=== PATIENT | male | born 1995 | race Caucasian/White ===

== ENCOUNTER 2020-07-13 08:49 | Inpatient (IN) | payer OTHER, SELFPAY ==
[2020-07-13] VITALS (99 sets, daily range): BP systolic 129–155; BP diastolic 75–106; PULSE 68–132; RESP 0–23; TEMP 36.5–37.7; O2SAT 93–100; BMI 22.1
[2020-07-13] MEDS: sodium chloride 0.9% 1,000 ML 999 ML IV (09:00)
--- NOTE | 2020-07-13 09:05 | W.ED.GENADLT ---
Documented by User: GALEN Medel 07/13/20 10:27 HPI - General Adult General: Chief complaint: Nausea/Vomiting/Diarrhea Stated complaint: TYPE 1 DIABETIC-SD POSS DKA Time Seen by Provider: 07/13/20 08:50 Source: patient Mode of arrival: ambulatory Limitations: no limitations History of Present Illness: HPI narrative: Patient is a 25-year-old male who presents to ED today with a main complaint of feeling like crap . Patient overall is fairly non-cooperative with further history. He does not seem willing to elaborate on how he feels ill. When asked specifically he tells me he has had some lower back pain over the past 2 to 3 days. No injury or trauma. Denies urinary symptoms. Denies previous back pains. He reports 2 episodes of nonbloody vomit yesterday. He is a type I diabetic. He tells me yesterday he forgot to take his 24-hour insulin . Patient cannot tell me the name of his insulin but states he gets it over the counter. He also is apparently supposed to be taking a sliding scale insulin but admittedly has not been doing this. Reports he does check his glucose at home and reports it normally runs in the 200s. He is not having any abdominal pain. No diarrhea. No fevers. No URI like symptoms. No sick contacts. Associated symptoms: Reports nausea and vomiting; Deny chest pain, confusion, dyspnea, headache(s), malaise, rash, palpitations or syncope Review of Systems Const: Denies: fever(s), chills, body aches, fatigue or malaise Eyes: Denies: change in vision or blurry vision ENMT: Denies: odynophagia Card: Denies: chest pain, palpitations, irregular heart rhythm, lightheadedness, syncope or dyspnea on exertion Resp: Denies: dyspnea, productive cough or pain on inspiration GI: Reports: nausea and vomiting; Denies: abdominal pain, heartburn, diarrhea, change in bowel habits, change in stool character, hematochezia, melena or white/light colored stool : Denies: difficulty urinating, dysuria, urinary frequency, urinary urgency or urinary hesitancy Musc: Reports: back pain; Denies: neck pain, extremity pain, extremity swelling, joint pain, joint swelling, joint redness, joint stiffness, limited range of motion or muscle weakness Skin/Breast: Denies: rash Neuro: Denies: headache(s), numbness in extremities, weakness in extremities, sensory changes, lack of coordination, difficulty walking, dizziness, confusion or Slurred speech present [facility] ED PFSH: Medical History Diabetes mellitus DKA, type 1 Social History Smoking and tobacco status: current every day smoker cigarettes Packs smoked per day: 1 Number of cigarettes per day: >20 Alcohol intake: never Substance/Drug Use: never Current occupational status: employed Physical Exam Const: COMMON NORMALS: average body habitus, patient oriented x3, healthy appearing, alert and well nourished ORIENTATION/CONSCIOUSNESS: Yes awake, Yes oriented to person, Yes oriented to place and Yes oriented to time OTHER: awake and alert although he is lying on bed with eyes closed and does not open them during my examination HENMT: COMMON NORMALS: normocephalic and atraumatic HEAD & SCALP: normocephalic and atraumatic Resp: COMMON NORMALS: normal respiratory effort and clear to auscultation bilaterally AUSCULTATION: clear to auscultation bilaterally Cardio: COMMON NORMALS: regular rhythm RATE: tachycardic RHYTHM: regular rhythm GI: COMMON NORMALS: Normal to inspection, nondistended, normoactive bowel sounds present, Soft to palpation, non-tender, No hepatosplenomegaly present and no masses PALPATION: Yes Soft to palpation and Yes No hepatosplenomegaly present Extremity: COMMON NORMALS: normal to inspection Neuro: JOSE MANUEL COMA SCALE: document [facility] findings Jose Manuel coma scale eye opening: Spontaneous Jose Manuel coma scale verbal response: Orientated Jose Manuel coma scale motor response: Obey commands Jose Manuel coma scale total score: 15 COMMON NORMALS: patient oriented x3 SENSORIUM/ORIENTATION: Yes alert, Yes oriented to person, Yes oriented to place and Yes oriented to time Skin: COMMON NORMALS: no rashes or lesions noted GENERAL SKIN EXAM: no rashes or lesions noted Course ED course: energy and conservation technician has spoken to patient and he apparently takes Novolin N 35 units daily and then takes Novolin R as his sliding scale insulin Vital Signs: Vital signs: Vital Signs Temperature 98.1 F 07/14/20 08:00 Pulse Rate 96 07/14/20 09:00 Respiratory Rate 14 07/14/20 09:00 Blood Pressure 134/87 07/14/20 09:00 Pulse Oximetry 97 07/14/20 09:00 MDM - General Adult MDM Narrative: Medical decision making narrative: Patient is acidotic with a pH of 7.31. He has a gap of 32. Glucose over 400. Positive serum ketones. Patient would benefit from coming into the hospital for further treatment of his DKA. He so far has had a liter of fluids. He will be given an insulin bolus and placed on an insulin drip. He has a normal potassium at 5.0. He does not require bicarb at this time. I have spoken to Dr. Ca who will see/evaluate patient and speak to the hospitalist for admission. Lab Data: Labs: Lab Results 07/13/20 07/13/20 07/13/20 Range/Units 09:06 09:07 09:07 WBC 15.6 H (4.0-10.0) 10^3/ uL RBC 6.35 H (4.1-5.3) 10^6/u L Hgb 18.8 H (11.7-16.6) g/dL Hct 57.7 H (42.0-52.0) % MCV 90.9 (80-94) fL MCH 29.6 (28.0-34.0) pg MCHC 32.6 (30.0-36.0) g/dL RDW 12.8 (12.1-15.1) % Plt Count 294 (130-400) 10^3/c mm MPV 12.0 H (7.4-10.4) fL Neut % (Auto) 73.4 % Lymph % (Auto) 19.3 % Hinds % (Auto) 6.4 % Eos % (Auto) 0.1 % Baso % (Auto) 0.5 % Neut # (Auto) 11.49 H (1.8-7.7) 10^3/u L Lymph # (Auto) 3.0 (0.8-4.8) 10^3/u L Hinds # (Auto) 1.0 H (0.2-0.9) 10^3/u L Eos # (Auto) 0.0 (0.0-0.8) 10^3/u L Baso # (Auto) 0.1 (0.0-0.1) 10^3/u L Nucleated RBC % (a uto) 0 % Nucleated RBCs # 0.0 /100WBC Specimen Type Sample Site ABG pH (7.35-7.45) ABG pCO2 (35-45) mmHg ABG pO2 (80.0-100.0) mmH g ABG HCO3 (22-26) mmol/L ABG O2 Saturation ABG Base Excess (-2.0-2.0) mmol/ L Bereket Test A-a O2 Gradient (5-10) mmHg Hematocrit (42-52) % Hgb O2 Saturation (95-100) % Carboxyhemoglobin (0.4-20.1) %THgb Methemoglobin (0.4-1.5) % Total Hemoglobin (14-18) g/dL Ionized Calcium (1.1-1.4) mmol/L O2 Delivery Device FiO2 % Vegetable Harvest Machine Operator ID Sodium 132 L (136-145) mmol/L Potassium 5.0 (3.5-5.1) mmol/L Chloride 88 L (98-107) mmol/L Carbon Dioxide 17 L (22-29) mmol/L Anion Gap 32.0 H (5-19) BUN 36 H (6-20) mg/dL Creatinine 1.5 H (0.7-1.2) mg/dL GFR Calculation 58.0 L (90-130) mL/min Glucose 423 H (65-115) mg/dL POC Glucose 391 (70-110) mg/dL Estimat Average Gl ucose Hemoglobin A1c (4.0-6.0) % Calculated Osmolal ity 300 H (285-295) mOsm/k g Calcium 9.8 (8.5-10.5) mg/dL Total Bilirubin 0.6 (0.15-1.2) mg/dL AST 10 (0-40) U/L ALT 19 (0-41) U/L Alkaline Phosphata se 108 (40-130) IU/L Total Protein 7.4 (6.6-8.7) g/dL Albumin 4.9 (3.5-5.2) g/dL Globulin 2.5 (1.3-4.6) g/dL Urine Color (Yellow) Urine Appearance (CLEAR) Urine pH (5-7) Ur Specific Gravit y (1.005-1.030) Urine Protein (Negative) Urine Glucose (UA) (Normal) Urine Ketones (Negative) Urine Blood (Negative) Urine Nitrate (Negative) Urine Bilirubin (Negative) Urine Urobilinogen (Negative) mg/dL Ur Leukocyte Angela ase (Negative) Urine Opiates Scre en (Negative) ng/mL Ur Barbiturates Sc reen (Negative) ng/mL Ur Phencyclidine S crn (Negative) ng/mL Ur Amphetamines Sc reen (Negative) ng/mL U Benzodiazepines Scrn (Negative) ng/mL Urine Cocaine Scre en (Negative) ng/mL U Marijuana (THC) Screen (Negative) ng/mL Serum Ketones Positive H (Negative) SARS-CoV-2 Ag (Rap id) (Negative) 07/13/20 07/13/20 07/13/20 Range/Units 09:07 09:10 09:23 WBC (4.0-10.0) 10^3/ uL RBC (4.1-5.3) 10^6/u L Hgb (11.7-16.6) g/dL Hct (42.0-52.0) % MCV (80-94) fL MCH (28.0-34.0) pg MCHC (30.0-36.0) g/dL RDW (12.1-15.1) % Plt Count (130-400) 10^3/c mm MPV (7.4-10.4) fL Neut % (Auto) % Lymph % (Auto) % Hinds % (Auto) % Eos % (Auto) % Baso % (Auto) % Neut # (Auto) (1.8-7.7) 10^3/u L Lymph # (Auto) (0.8-4.8) 10^3/u L Hinds # (Auto) (0.2-0.9) 10^3/u L Eos # (Auto) (0.0-0.8) 10^3/u L Baso # (Auto) (0.0-0.1) 10^3/u L Nucleated RBC % (a uto) % Nucleated RBCs # /100WBC Specimen Type Arterial Sample Site Brachial, left ABG pH 7.31 L (7.35-7.45) ABG pCO2 27.3 L (35-45) mmHg ABG pO2 102.0 H (80.0-100.0) mmH g ABG HCO3 13.8 L (22-26) mmol/L ABG O2 Saturation 98.8 ABG Base Excess -10.4 L (-2.0-2.0) mmol/ L Bereket Test Pos A-a O2 Gradient 1.5 L (5-10) mmHg Hematocrit 55.4 H (42-52) % Hgb O2 Saturation 96.5 (95-100) % Carboxyhemoglobin 1.7 (0.4-20.1) %THgb Methemoglobin 0.7 (0.4-1.5) % Total Hemoglobin 18.1 H (14-18) g/dL Ionized Calcium 1.2 (1.1-1.4) mmol/L O2 Delivery Device Room air FiO2 21.0 % Vegetable Harvest Machine Operator ID Cak Sodium 131.0 (136-145) mmol/L Potassium 4.4 (3.5-5.1) mmol/L Chloride (98-107) mmol/L Carbon Dioxide (22-29) mmol/L Anion Gap (5-19) BUN (6-20) mg/dL Creatinine (0.7-1.2) mg/dL GFR Calculation (90-130) mL/min Glucose 407.0 H (65-115) mg/dL POC Glucose (70-110) mg/dL Estimat Average Gl ucose 275 Hemoglobin A1c 11.2 H (4.0-6.0) % Calculated Osmolal ity (285-295) mOsm/k g Calcium (8.5-10.5) mg/dL Total Bilirubin (0.15-1.2) mg/dL AST (0-40) U/L ALT (0-41) U/L Alkaline Phosphata se (40-130) IU/L Total Protein (6.6-8.7) g/dL Albumin (3.5-5.2) g/dL Globulin (1.3-4.6) g/dL Urine Color Yellow (Yellow) Urine Appearance Clear (CLEAR) Urine pH 5 (5-7) Ur Specific Gravit y 1.020 (1.005-1.030) Urine Protein Neg (Negative) Urine Glucose (UA) 4+ H (Normal) Urine Ketones 3+ H (Negative) Urine Blood Neg (Negative) Urine Nitrate Negative (Negative) Urine Bilirubin Neg (Negative) Urine Urobilinogen Neg (Negative) mg/dL Ur Leukocyte Angela ase Negative (Negative) Urine Opiates Scre en (Negative) ng/mL Ur Barbiturates Sc reen (Negative) ng/mL Ur Phencyclidine S crn (Negative) ng/mL Ur Amphetamines Sc reen (Negative) ng/mL U Benzodiazepines Scrn (Negative) ng/mL Urine Cocaine Scre en (Negative) ng/mL U Marijuana (THC) Screen (Negative) ng/mL Serum Ketones (Negative) SARS-CoV-2 Ag (Rap id) (Negative) 07/13/20 07/13/20 Range/Units 09:23 09:37 WBC (4.0-10.0) 10^3/ uL RBC (4.1-5.3) 10^6/u L Hgb (11.7-16.6) g/dL Hct (42.0-52.0) % MCV (80-94) fL MCH (28.0-34.0) pg MCHC (30.0-36.0) g/dL RDW (12.1-15.1) % Plt Count (130-400) 10^3/c mm MPV (7.4-10.4) fL Neut % (Auto) % Lymph % (Auto) % Hinds % (Auto) % Eos % (Auto) % Baso % (Auto) % Neut # (Auto) (1.8-7.7) 10^3/u L Lymph # (Auto) (0.8-4.8) 10^3/u L Hinds # (Auto) (0.2-0.9) 10^3/u L Eos # (Auto) (0.0-0.8) 10^3/u L Baso # (Auto) (0.0-0.1) 10^3/u L Nucleated RBC % (a uto) % Nucleated RBCs # /100WBC Specimen Type Sample Site ABG pH (7.35-7.45) ABG pCO2 (35-45) mmHg ABG pO2 (80.0-100.0) mmH g ABG HCO3 (22-26) mmol/L ABG O2 Saturation ABG Base Excess (-2.0-2.0) mmol/ L Bereket Test A-a O2 Gradient (5-10) mmHg Hematocrit (42-52) % Hgb O2 Saturation (95-100) % Carboxyhemoglobin (0.4-20.1) %THgb Methemoglobin (0.4-1.5) % Total Hemoglobin (14-18) g/dL Ionized Calcium (1.1-1.4) mmol/L O2 Delivery Device FiO2 % Vegetable Harvest Machine Operator ID Sodium (136-145) mmol/L Potassium (3.5-5.1) mmol/L Chloride (98-107) mmol/L Carbon Dioxide (22-29) mmol/L Anion Gap (5-19) BUN (6-20) mg/dL Creatinine (0.7-1.2) mg/dL GFR Calculation (90-130) mL/min Glucose (65-115) mg/dL POC Glucose (70-110) mg/dL Estimat Average Gl ucose Hemoglobin A1c (4.0-6.0) % Calculated Osmolal ity (285-295) mOsm/k g Calcium (8.5-10.5) mg/dL Total Bilirubin (0.15-1.2) mg/dL AST (0-40) U/L ALT (0-41) U/L Alkaline Phosphata se (40-130) IU/L Total Protein (6.6-8.7) g/dL Albumin (3.5-5.2) g/dL Globulin (1.3-4.6) g/dL Urine Color (Yellow) Urine Appearance (CLEAR) Urine pH (5-7) Ur Specific Gravit y (1.005-1.030) Urine Protein (Negative) Urine Glucose (UA) (Normal) Urine Ketones (Negative) Urine Blood (Negative) Urine Nitrate (Negative) Urine Bilirubin (Negative) Urine Urobilinogen (Negative) mg/dL Ur Leukocyte Angela ase (Negative) Urine Opiates Scre en Negative (Negative) ng/mL Ur Barbiturates Sc reen Negative (Negative) ng/mL Ur Phencyclidine S crn Negative (Negative) ng/mL Ur Amphetamines Sc reen Negative (Negative) ng/mL U Benzodiazepines Scrn Negative (Negative) ng/mL Urine Cocaine Scre en Negative (Negative) ng/mL U Marijuana (THC) Screen Negative (Negative) ng/mL Serum Ketones (Negative) SARS-CoV-2 Ag (Rap id) Negative (Negative) Imaging Data^: CXR: Radiologist's impression: [address] [address] XRay Report Signed Patient: Jean Miller Unit #: [id number] : 1995 Age/Sex: 25 / M ADM Date: 07/13/20 Loc: ER Room/Bed: Attending Dr: Ordering Provider/Ordering MD: Daisy Cruz Date of Service: 07/13/20 Procedure(s): XR chest 1V portable [id number] Accession Number(s): [id number] Report Number: [id number] PROCEDURE INFORMATION: Exam: XR Chest, 1 View Exam date and time: 07/13/2020 9:25 AM Age: 25 years old Clinical indication: Other: Not feeling well TECHNIQUE: Imaging protocol: XR of the chest Views: 1 view. COMPARISON: CR Chest 1 [place] [id number] 08/31/2018 8:09 AM FINDINGS: Lungs: Hyperinflation, without acute airspace disease. Pleural space: No pleural effusion. Heart/Mediastinum: Normal configuration of the heart. Bones/joints: Unremarkable. XR/XR chest 1V portable [id number] IMPRESSION: Hyperinflation, without acute airspace or pleural disease. Dictated By: Yaw Brewer MD Signed By: Yaw Brewer MD Signed Date/Time: 07/13/20 1021 DD/ 1019 Discharge Plan Discharge Admit Provider: Cyn Garza Clinical Impression: DKA, type 1 Condition: Fair Discharge Date/Time: 07/13/20 16:20 Coding Level of Care Code ED Detacker for Chg Fwd Exam Comprehensive Documented by User: Quincy Ca DO 07/19/20 07:09 HPI - General Adult General: Chief complaint: Nausea/Vomiting/Diarrhea Stated complaint: TYPE 1 DIABETIC-SD POSS DKA Time Seen by Provider: 07/13/20 08:50 History of Present Illness: HPI narrative: 25-year-old male admit admitted to the ER with DKA. He is lethargic but awake and responsive. He will discuss his history with me and reviewed Daisy Cruz's history there is no change in my findings. He does state he feels a little bit better after getting some fluids. PFSH ED PFSH: Medical History Diabetes mellitus DKA, type 1 Social History Smoking and tobacco status: current every day smoker cigarettes Packs smoked per day: 1 Number of cigarettes per day: >20 Alcohol intake: never Substance/Drug Use: never Current occupational status: employed Physical Exam Const: GENERAL APPEARANCE: cooperative ORIENTATION/CONSCIOUSNESS: Yes awake, Yes oriented to person, Yes oriented to place and Yes oriented to time HENMT: COMMON NORMALS: normocephalic, atraumatic and hearing grossly normal bilaterally HEAD & SCALP: normocephalic and atraumatic Eye: COMMON NORMALS: Equal, round and reactive pupils present, EOMs intact bilaterally, conjunctivae normal and no scleral icterus CONJUNCTIVA: Yes conjunctivae normal PUPIL: Yes Equal, round and reactive pupils present Neck/C-Spine: COMMON NORMALS: no JVD Resp: COMMON NORMALS: normal respiratory effort, No retractions, No use of accessory muscles and clear to auscultation bilaterally AUSCULTATION: clear to auscultation bilaterally Cardio: COMMON NORMALS: no JVD, regular rate, regular rhythm and No murmurs present (Cardio) RATE: regular rate RHYTHM: regular rhythm GI: COMMON NORMALS: Soft to palpation and No hepatosplenomegaly present AUSCULTATION: Yes normoactive bowel sounds PALPATION: Yes Soft to palpation, No Tenderness to palpation present (GI), No Guarding due to palpation present (GI) and Yes No hepatosplenomegaly present Extremity: COMMON NORMALS: normal to inspection, capillary refill normal, no clubbing, cyanosis or edema, no calf tenderness and no pedal edema Neuro: SENSORIUM/ORIENTATION: Yes oriented to person, Yes oriented to place and Yes oriented to time Skin: COMMON NORMALS: no rashes or lesions noted GENERAL SKIN EXAM: no rashes or lesions noted Course Vital Signs: Vital signs: Vital Signs Temperature 98.1 F 07/14/20 08:00 Pulse Rate 96 07/14/20 09:00 Respiratory Rate 14 07/14/20 09:00 Blood Pressure 134/87 07/14/20 09:00 Pulse Oximetry 97 07/14/20 09:00 MDM - General Adult MDM Narrative: Medical decision making narrative: Reviewed chart with Daisy Cruz. Of also reviewed the patient and exam agree with her exam. Discussed with Dr. Garza will admit for DKA. Lab Data: Labs: Lab Results 07/13/20 07/13/20 07/13/20 Range/Units 09:06 09:07 09:07 WBC 15.6 H (4.0-10.0) 10^3/ uL RBC 6.35 H (4.1-5.3) 10^6/u L Hgb 18.8 H (11.7-16.6) g/dL Hct 57.7 H (42.0-52.0) % MCV 90.9 (80-94) fL MCH 29.6 (28.0-34.0) pg MCHC 32.6 (30.0-36.0) g/dL RDW 12.8 (12.1-15.1) % Plt Count 294 (130-400) 10^3/c mm MPV 12.0 H (7.4-10.4) fL Neut % (Auto) 73.4 % Lymph % (Auto) 19.3 % Hinds % (Auto) 6.4 % Eos % (Auto) 0.1 % Baso % (Auto) 0.5 % Neut # (Auto) 11.49 H (1.8-7.7) 10^3/u L Lymph # (Auto) 3.0 (0.8-4.8) 10^3/u L Hinds # (Auto) 1.0 H (0.2-0.9) 10^3/u L Eos # (Auto) 0.0 (0.0-0.8) 10^3/u L Baso # (Auto) 0.1 (0.0-0.1) 10^3/u L Nucleated RBC % (a uto) 0 % Nucleated RBCs # 0.0 /100WBC Specimen Type Sample Site ABG pH (7.35-7.45) ABG pCO2 (35-45) mmHg ABG pO2 (80.0-100.0) mmH g ABG HCO3 (22-26) mmol/L ABG O2 Saturation ABG Base Excess (-2.0-2.0) mmol/ L Bereket Test A-a O2 Gradient (5-10) mmHg Hematocrit (42-52) % Hgb O2 Saturation (95-100) % Carboxyhemoglobin (0.4-20.1) %THgb Methemoglobin (0.4-1.5) % Total Hemoglobin (14-18) g/dL Ionized Calcium (1.1-1.4) mmol/L O2 Delivery Device FiO2 % Vegetable Harvest Machine Operator ID Sodium 132 L (136-145) mmol/L Potassium 5.0 (3.5-5.1) mmol/L Chloride 88 L (98-107) mmol/L Carbon Dioxide 17 L (22-29) mmol/L Anion Gap 32.0 H (5-19) BUN 36 H (6-20) mg/dL Creatinine 1.5 H (0.7-1.2) mg/dL GFR Calculation 58.0 L (90-130) mL/min Glucose 423 H (65-115) mg/dL POC Glucose 391 (70-110) mg/dL Estimat Average Gl ucose Hemoglobin A1c (4.0-6.0) % Calculated Osmolal ity 300 H (285-295) mOsm/k g Calcium 9.8 (8.5-10.5) mg/dL Total Bilirubin 0.6 (0.15-1.2) mg/dL AST 10 (0-40) U/L ALT 19 (0-41) U/L Alkaline Phosphata se 108 (40-130) IU/L Total Protein 7.4 (6.6-8.7) g/dL Albumin 4.9 (3.5-5.2) g/dL Globulin 2.5 (1.3-4.6) g/dL Urine Color (Yellow) Urine Appearance (CLEAR) Urine pH (5-7) Ur Specific Gravit y (1.005-1.030) Urine Protein (Negative) Urine Glucose (UA) (Normal) Urine Ketones (Negative) Urine Blood (Negative) Urine Nitrate (Negative) Urine Bilirubin (Negative) Urine Urobilinogen (Negative) mg/dL Ur Leukocyte Angela ase (Negative) Urine Opiates Scre en (Negative) ng/mL Ur Barbiturates Sc reen (Negative) ng/mL Ur Phencyclidine S crn (Negative) ng/mL Ur Amphetamines Sc reen (Negative) ng/mL U Benzodiazepines Scrn (Negative) ng/mL Urine Cocaine Scre en (Negative) ng/mL U Marijuana (THC) Screen (Negative) ng/mL Serum Ketones Positive H (Negative) SARS-CoV-2 Ag (Rap id) (Negative) 07/13/20 07/13/20 07/13/20 Range/Units 09:07 09:10 09:23 WBC (4.0-10.0) 10^3/ uL RBC (4.1-5.3) 10^6/u L Hgb (11.7-16.6) g/dL Hct (42.0-52.0) % MCV (80-94) fL MCH (28.0-34.0) pg MCHC (30.0-36.0) g/dL RDW (12.1-15.1) % Plt Count (130-400) 10^3/c mm MPV (7.4-10.4) fL Neut % (Auto) % Lymph % (Auto) % Hinds % (Auto) % Eos % (Auto) % Baso % (Auto) % Neut # (Auto) (1.8-7.7) 10^3/u L Lymph # (Auto) (0.8-4.8) 10^3/u L Hinds # (Auto) (0.2-0.9) 10^3/u L Eos # (Auto) (0.0-0.8) 10^3/u L Baso # (Auto) (0.0-0.1) 10^3/u L Nucleated RBC % (a uto) % Nucleated RBCs # /100WBC Specimen Type Arterial Sample Site Brachial, left ABG pH 7.31 L (7.35-7.45) ABG pCO2 27.3 L (35-45) mmHg ABG pO2 102.0 H (80.0-100.0) mmH g ABG HCO3 13.8 L (22-26) mmol/L ABG O2 Saturation 98.8 ABG Base Excess -10.4 L (-2.0-2.0) mmol/ L Bereket Test Pos A-a O2 Gradient 1.5 L (5-10) mmHg Hematocrit 55.4 H (42-52) % Hgb O2 Saturation 96.5 (95-100) % Carboxyhemoglobin 1.7 (0.4-20.1) %THgb Methemoglobin 0.7 (0.4-1.5) % Total Hemoglobin 18.1 H (14-18) g/dL Ionized Calcium 1.2 (1.1-1.4) mmol/L O2 Delivery Device Room air FiO2 21.0 % Vegetable Harvest Machine Operator ID Cak Sodium 131.0 (136-145) mmol/L Potassium 4.4 (3.5-5.1) mmol/L Chloride (98-107) mmol/L Carbon Dioxide (22-29) mmol/L Anion Gap (5-19) BUN (6-20) mg/dL Creatinine (0.7-1.2) mg/dL GFR Calculation (90-130) mL/min Glucose 407.0 H (65-115) mg/dL POC Glucose (70-110) mg/dL Estimat Average Gl ucose 275 Hemoglobin A1c 11.2 H (4.0-6.0) % Calculated Osmolal ity (285-295) mOsm/k g Calcium (8.5-10.5) mg/dL Total Bilirubin (0.15-1.2) mg/dL AST (0-40) U/L ALT (0-41) U/L Alkaline Phosphata se (40-130) IU/L Total Protein (6.6-8.7) g/dL Albumin (3.5-5.2) g/dL Globulin (1.3-4.6) g/dL Urine Color Yellow (Yellow) Urine Appearance Clear (CLEAR) Urine pH 5 (5-7) Ur Specific Gravit y 1.020 (1.005-1.030) Urine Protein Neg (Negative) Urine Glucose (UA) 4+ H (Normal) Urine Ketones 3+ H (Negative) Urine Blood Neg (Negative) Urine Nitrate Negative (Negative) Urine Bilirubin Neg (Negative) Urine Urobilinogen Neg (Negative) mg/dL Ur Leukocyte Angela ase Negative (Negative) Urine Opiates Scre en (Negative) ng/mL Ur Barbiturates Sc reen (Negative) ng/mL Ur Phencyclidine S crn (Negative) ng/mL Ur Amphetamines Sc reen (Negative) ng/mL U Benzodiazepines Scrn (Negative) ng/mL Urine Cocaine Scre en (Negative) ng/mL U Marijuana (THC) Screen (Negative) ng/mL Serum Ketones (Negative) SARS-CoV-2 Ag (Rap id) (Negative) 07/13/20 07/13/20 Range/Units 09:23 09:37 WBC (4.0-10.0) 10^3/ uL RBC (4.1-5.3) 10^6/u L Hgb (11.7-16.6) g/dL Hct (42.0-52.0) % MCV (80-94) fL MCH (28.0-34.0) pg MCHC (30.0-36.0) g/dL RDW (12.1-15.1) % Plt Count (130-400) 10^3/c mm MPV (7.4-10.4) fL Neut % (Auto) % Lymph % (Auto) % Hinds % (Auto) % Eos % (Auto) % Baso % (Auto) % Neut # (Auto) (1.8-7.7) 10^3/u L Lymph # (Auto) (0.8-4.8) 10^3/u L Hinds # (Auto) (0.2-0.9) 10^3/u L Eos # (Auto) (0.0-0.8) 10^3/u L Baso # (Auto) (0.0-0.1) 10^3/u L Nucleated RBC % (a uto) % Nucleated RBCs # /100WBC Specimen Type Sample Site ABG pH (7.35-7.45) ABG pCO2 (35-45) mmHg ABG pO2 (80.0-100.0) mmH g ABG HCO3 (22-26) mmol/L ABG O2 Saturation ABG Base Excess (-2.0-2.0) mmol/ L Bereket Test A-a O2 Gradient (5-10) mmHg Hematocrit (42-52) % Hgb O2 Saturation (95-100) % Carboxyhemoglobin (0.4-20.1) %THgb Methemoglobin (0.4-1.5) % Total Hemoglobin (14-18) g/dL Ionized Calcium (1.1-1.4) mmol/L O2 Delivery Device FiO2 % [employer] ID Sodium (136-145) mmol/L Potassium (3.5-5.1) mmol/L Chloride (98-107) mmol/L Carbon Dioxide (22-29) mmol/L Anion Gap (5-19) BUN (6-20) mg/dL Creatinine (0.7-1.2) mg/dL GFR Calculation (90-130) mL/min Glucose (65-115) mg/dL POC Glucose (70-110) mg/dL Estimat Average Gl ucose Hemoglobin A1c (4.0-6.0) % Calculated Osmolal ity (285-295) mOsm/k g Calcium (8.5-10.5) mg/dL Total Bilirubin (0.15-1.2) mg/dL AST (0-40) U/L ALT (0-41) U/L Alkaline Phosphata se (40-130) IU/L Total Protein (6.6-8.7) g/dL Albumin (3.5-5.2) g/dL Globulin (1.3-4.6) g/dL Urine Color (Yellow) Urine Appearance (CLEAR) Urine pH (5-7) Ur Specific Gravit y (1.005-1.030) Urine Protein (Negative) Urine Glucose (UA) (Normal) Urine Ketones (Negative) Urine Blood (Negative) Urine Nitrate (Negative) Urine Bilirubin (Negative) Urine Urobilinogen (Negative) mg/dL Ur Leukocyte Angela ase (Negative) Urine Opiates Scre en Negative (Negative) ng/mL Ur Barbiturates Sc reen Negative (Negative) ng/mL Ur Phencyclidine S crn Negative (Negative) ng/mL Ur Amphetamines Sc reen Negative (Negative) ng/mL U Benzodiazepines Scrn Negative (Negative) ng/mL Urine Cocaine Scre en Negative (Negative) ng/mL U Marijuana (THC) Screen Negative (Negative) ng/mL Serum Ketones (Negative) SARS-CoV-2 Ag (Rap id) Negative (Negative) Discharge Plan Discharge Admit Provider: Cyn Garza Clinical Impression: DKA, type 1 Condition: Fair Discharge Date/Time: 07/13/20 16:20 Coding Level of Care Code ED Detacker for Chg Fwd Exam Comprehensive
[2020-07-13 09:12] LABS: Glucose Point of Care 391 mg/dL (70-110)
--- NOTE | 2020-07-13 09:13 | XRR_ITS ---
PROCEDURE INFORMATION: Exam: XR Chest, 1 View Exam date and time: 07/13/2020 9:25 AM Age: 25 years old Clinical indication: Other: Not feeling well TECHNIQUE: Imaging protocol: XR of the chest Views: 1 view. COMPARISON: CR Chest 1 [place] [id number] 08/31/2018 8:09 AM FINDINGS: Lungs: Hyperinflation, without acute airspace disease. Pleural space: No pleural effusion. Heart/Mediastinum: Normal configuration of the heart. Bones/joints: Unremarkable. XR/XR chest 1V portable [id number] IMPRESSION: Hyperinflation, without acute airspace or pleural disease.
[2020-07-13 09:21] LABS: ABG PCO2 27.3 mmHg (35-45); ABG PH Result 7.31 (7.35-7.45); Alveolar-Arterial Oxygen Gradi 1.5 mmHg (5-10); Arterial Blood Gas Hematocrit 55.4 % (42-52); Base Excess ABG -10.4 mmol/L (-2.0-2.0); Blood Gas Allen Test Pos; Blood Gas Operator Identificat CAK; Blood Gas Sample Site Brachial, left; Blood Gas Sample Type Arterial; Carboxyhemoglobin 1.7 %THgb (0.4-20.1); HCO3 ABG 13.8 mmol/L (22-26); HGB O2 Sat 96.5 % (95-100); Ionized Calcium Level - ABG 1.2 mmol/L (1.1-1.4); Methemoglobin 0.7 % (0.4-1.5); Oxygen Device ROOM AIR; Oxygen Saturation ABG 98.8; Potassium Level - ABG 4.4 mmol/L (3.5-5.0); Total Hemoglobin 18.1 g/dL (14-18)
[2020-07-13 09:24] LABS: Basophils # 0.1 10^3/uL (0.0-0.1); Basophils % 0.5 %; Eosinophils % 0.1 %; Hematocrit 57.7 % (42.0-52.0); Hemoglobin 18.8 g/dL (11.7-16.6); Lymphocytes % 19.3 %; Mean Corpuscular HGB Conc 32.6 g/dL (30.0-36.0); Mean Corpuscular Hemoglobin 29.6 pg (28.0-34.0); Mean Corpuscular Volume 90.9 fL (80-94); Monocytes % 6.4 %; Neutrophils # 11.49 10^3/uL (1.8-7.7); Neutrophils % 73.4 %; Nucleated Red Blood Cells % 0 %; Platelet Count 294 10^3/cmm (130-400); Red Blood Count 6.35 10^6/uL (4.1-5.3); Red Cell Distribution Width 12.8 % (12.1-15.1); White Blood Count 15.6 10^3/uL (4.0-10.0)
[2020-07-13 09:35] LABS: Ketone (Acetest) Serum Positive (Negative)
[2020-07-13 09:39] LABS: Alanine Aminotransferase 19 U/L (0-41); Albumin Level 4.9 g/dL (3.5-5.2); Alkaline Phosphatase 108 IU/L (40-130); Aspartate Amino Transferase 10 U/L (0-40); Blood Urea Nitrogen 36 mg/dL (6-20); Calcium 9.8 mg/dL (8.5-10.5); Carbon Dioxide 17 mmol/L (22-29); Chloride 88 mmol/L (98-107); Globulin 2.5 g/dL (1.3-4.6); Glucose 423 mg/dL (65-115); Osmolality Calculated 300 mOsm/kg (285-295); Sodium 132 mmol/L (136-145); Total Bilirubin 0.6 mg/dL (0.15-1.2); Total Protein 7.4 g/dL (6.6-8.7)
[2020-07-13 09:44] LABS: Creatinine Clr Calc Pharmacy 75.4386
[2020-07-13 09:47] LABS: Add Urine Microscopic? NO
[2020-07-13 09:54] LABS: Glucose Urine UA 4+ (Normal); Protein Urine Neg (Negative); Urine Appearance Clear (CLEAR); Urine Color Yellow (Yellow); pH Urine 5 (5-7)
[2020-07-13 09:55] LABS: Bilirubin Urine Neg (Negative); Blood Urine Neg (Negative); Ketones Urine 3+ (Negative); Leukocyte Esterase Urine Negative (Negative); Nitrate Urine Negative (Negative); Urobilinogen Urine Neg (Negative)
[2020-07-13] MEDS: insulin regular-human 250 UNIT in sodium chloride 0.9% 250 ML 6.1 UNIT IV (09:56)
[2020-07-13 10:00] LABS: SARS Covid-2 Antigen Negative (Negative)
[2020-07-13] MEDS: insulin regular-human 100 units/1 mL 6 UNIT IVP (10:04)
[2020-07-13 10:31] LABS: Amphetamines Screen Urine Negative (Negative); Barbiturates Screen Urine Negative (Negative); Benzodiazepines Screen Urine Negative (Negative); Cocaine Screen Urine Negative (Negative); Opiate Screen Urine Negative (Negative); PCP Screen Urine Negative (Negative); THC Screen Urine Negative (Negative)
--- NOTE | 2020-07-13 11:30 | P.HP_ITS ---
Providers/Chief Complaint Admitting Physician: Cyn Garza DO Primary Care Provider: Peace Brothers MD Chief Complaint: TYPE 1 DIABETIC-SD POSS DKA History of Present Illness Jean Miller is a 25 year old male with a past medical history of type 1 diabetes mellitus that presented to the hospital for not feeling well. Patient would not provide any elaborated HPI, therefore difficult to obtain what his contributing factors were that brought him to the emergency department. He states that he is been having some nausea vomiting abdominal discomfort. Reports that he did not take his insulin, long-acting, yesterday. Patient reports that he does not have a primary care provider and has not been seen by a physician in some time. Denies any recent fevers or chills, no known exposure to anyone under investigation are positive for COVID-19. Review of Systems Const: Denies: fever(s) or chills Eyes: Denies: change in vision ENMT: Denies: nasal congestion Card: Denies: chest pain, palpitations or edema Resp: Denies: dyspnea, productive cough or hemoptysis GI: Reports: abdominal pain, nausea and vomiting; Denies: diarrhea, constipation, hematochezia or melena : Denies: dysuria or hematuria Musc: Denies: extremity pain or muscle cramps Skin/Breast: Denies: rash or new lesions Neuro: Denies: headache(s) or dizziness Psych: Denies: anxiety or depression Endo: Reports: polyuria; Denies: hot flashes Basim/Lymph: Denies: easy bruising or easy bleeding Medications/Allergies Home Medications Medication Instructions Recorded Confirmed Last Taken Type insulin NPH isoph U-100 human 35 unit SUBCUT DAILY 07/13/20 07/13/20 Unknown History [Novolin N Flexpen] insulin regular human [Novolin R See Rx Instructions .ROUTE .COMPLEX 07/13/20 07/13/20 Unknown History Flexpen] Allergies Allergy/AdvReac Type Severity Reaction Status Date / Time No Known Allergies Allergy Unverified 07/13/20 09:29 PFSH Acute PFSH: Medical History Diabetes mellitus Social History (Updated 07/13/20 @ 11:32 by Cyn Garza DO) Smoking and tobacco status: current every day smoker cigarettes Packs smoked pe r day: 1 Alcohol intake: never Substance/Drug Use: never Supplemental PFSH Information: Patient denies any family history of medical problems Reports prior throat surgery but unable to elaborate 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 Vitals/I&O/Wt Last Vital Signs Temp 97.7 F 07/13/20 09:04 Pulse 102 H 07/13/20 09:42 Resp 18 07/13/20 09:42 BP 148/106 07/13/20 09:42 Pulse Ox 99 07/13/20 09:42 Weight last 48 hrs Weight 68.039 kg Physical Exam Const: COMMON NORMALS: patient oriented x3 and alert GENERAL APPEARANCE: cooperative ORIENTATION/CONSCIOUSNESS: Yes awake, Yes oriented to person, Yes oriented to place and Yes oriented to time HENMT: COMMON NORMALS: normocephalic and atraumatic HEAD & SCALP: normocephalic and atraumatic Eye: COMMON NORMALS: Equal, round and reactive pupils present PUPIL: Yes Equal, round and reactive pupils present Neck/C-Spine: COMMON NORMALS: supple GENERAL: Yes normal visual inspection Resp: COMMON NORMALS: normal respiratory effort and clear to auscultation bilaterally EFFORT & INSPECTION: Yes able to speak in complete sentences AUSCULTATION: clear to auscultation bilaterally, no rhonchi and no wheezes Cardio: COMMON NORMALS: regular rhythm and No murmurs present (Cardio) RATE: tachycardic RHYTHM: regular rhythm GI: COMMON NORMALS: Soft to palpation INSPECTION: No abdominal distension AUSCULTATION: Yes normoactive bowel sounds PALPATION: Yes Soft to palpation Extremity: COMMON NORMALS: no clubbing, cyanosis or edema and no calf tenderness Neuro: COMMON NORMALS: patient oriented x3, CN's II-XII intact bilaterally, moves all extremities and no focal motor deficits SENSORIUM/ORIENTATION: Yes alert, Yes oriented to person, Yes oriented to place and Yes oriented to time SPEECH: speech normal Psych: COMMON NORMALS: mental status grossly normal OTHER: flat, minimally conversant Skin: COMMON NORMALS: no rashes or lesions noted GENERAL SKIN EXAM: no rashes or lesions noted Data : 07/13/20 09:07 07/13/20 09:07 A&P Assessment and plan (1) DKA, type 1: Admit to ICU Continue insulin drip Continue on normal saline with 20 mEq of potassium then transition to D5 half- normal saline with 20 mEq of potassium when blood glucose is less than 250 mg/dL Transition to subcutaneous insulin when anion gap closes and when clinically appropriate No calorie clear liquid diet at this time Patient reports noncompliance with home insulin, does not have a primary care provider. Recommend close outpatient follow-up and endocrinology referral. 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
[2020-07-13 11:40] LABS: Glucose Point of Care 271 mg/dL (70-110)
[2020-07-13 12:23] LABS: Glucose Point of Care 211 mg/dL (70-110)
[2020-07-13] MEDS: D5-NS 0.45% + KCL 20 mEq 20 MEQ/1,000 ML BAG 150 MEQ IV ×2 (13:13→17:04)
[2020-07-13 15:20] LABS: Glucose Point of Care 370 mg/dL (70-110)
[2020-07-13 16:09] LABS: Glucose Point of Care 329 mg/dL (70-110)
[2020-07-13 16:33] LABS: Glucose Point of Care 309 mg/dL (70-110)
[2020-07-13] MEDS: sodium chlor 0.9% + KCl 20 mEq 20 MEQ/1,000 ML BAG 150 MEQ IV (17:11)
[2020-07-13] MEDS: D5-NS 0.45% + KCL 20 mEq 20 MEQ/1,000 ML BAG 75 MEQ IV (17:59)
[2020-07-13 18:41] LABS: Anion Gap 12.2 (5-19); Blood Urea Nitrogen 27 mg/dL (6-20); Calcium 8.8 mg/dL (8.5-10.5); Carbon Dioxide 24 mmol/L (22-29); Chloride 102 mmol/L (98-107); Glomerular Filtration Rate 92.6 mL/min (90-130); Glucose 289 mg/dL (65-115); Osmolality Calculated 294 mOsm/kg (285-295); Potassium 4.2 mmol/L (3.5-5.1); Sodium 134 mmol/L (136-145)
[2020-07-13 19:04] LABS: Glucose Point of Care 210 mg/dL (70-110)
[2020-07-13 21:06] LABS: Anion Gap 12.8 (5-19); Blood Urea Nitrogen 26 mg/dL (6-20); Calcium 8.8 mg/dL (8.5-10.5); Carbon Dioxide 25 mmol/L (22-29); Chloride 106 mmol/L (98-107); Glomerular Filtration Rate 104.6 mL/min (90-130); Glucose 118 mg/dL (65-115); Osmolality Calculated 296 mOsm/kg (285-295); Potassium 3.8 mmol/L (3.5-5.1); Sodium 140 mmol/L (136-145)
[2020-07-13 22:06] LABS: Glucose Point of Care 103 mg/dL (70-110)
[2020-07-13 22:06] LABS: Glucose Point of Care 158 mg/dL (70-110)
[2020-07-13 22:06] LABS: Glucose Point of Care 137 mg/dL (70-110)
--- NOTE | 2020-07-13 22:08 | PC.NURSE ---
Verbal Orders for Insulin Drip to be discontinued with new orders for diet change from Clear liquid to Consistent Carb-received from MD Tamra. Pt Insulin Flowsheet updated and placed inside of chart. Pt given PO fluids and crackers per MD recommendations. Pt resting comfortably with no needs verbalized.
[2020-07-13 22:40] LABS: Estmated Average Glucose 275; Hemoglobin A1C 11.2 % (4.0-6.0)
[2020-07-14] VITALS (100 sets, daily range): BP systolic 120–153; BP diastolic 60–96; PULSE 68–118; RESP 3–20; TEMP 36.7–37.2; O2SAT 93–100
[2020-07-14 01:36] LABS: Anion Gap 11.9 (5-19); Blood Urea Nitrogen 23 mg/dL (6-20); Calcium 8.5 mg/dL (8.5-10.5); Carbon Dioxide 24 mmol/L (22-29); Chloride 101 mmol/L (98-107); Glucose 246 mg/dL (65-115); Osmolality Calculated 288 mOsm/kg (285-295); Potassium 3.9 mmol/L (3.5-5.1); Sodium 133 mmol/L (136-145)
[2020-07-14 03:07] LABS: Glucose Point of Care 392 mg/dL (70-110)
[2020-07-14] MEDS: insulin glargine 100 units/1 mL 5 UNIT SUBCUT (03:37)
--- NOTE | 2020-07-14 03:42 | PC.NURSE ---
Spot check BG level 392. MD Tamra. notified and verbal order for 10 units Novolog SubQ Once NOW, and 5 units Lantus SubQ Once NOW to be given. Pt continues to consume cardiac diet without complaint of N/V. Pt stated that his home medications consist of Novolog N 35 units/day, and Novolog R based on BG levels. No other major medical history when asked. And verbalized no other major health history.
--- NOTE | 2020-07-14 06:40 | PC.NURSE ---
Shift Summary: Around 2129 v/o to turn off Insulin Drip, and upgrade PO diet given by MD Tamra. Pt started with clear liquids and tolerated well, then moved to Consistent Carb Diet and has had no incidence of N/V. Spot check done after PO meal given. Pt BG was 392. notified and v/o for Lantus and Novolog SubQ. Pt slept comfortably, and had no reported pain through shift. Pt requesting to go home this AM stating he feels better . D5NS running at 75mL/hr. 1000 u/o.
[2020-07-14 07:30] LABS: Glucose Point of Care 294 mg/dL (70-110)
--- NOTE | 2020-07-14 09:35 | PC.NURSE ---
Pt request to leave against medical advice. Pt had voiced want to leave since earlier this shift. This nurse called doctor at 0715 to notify. This nurse requested pt wait to see doctor on morning rounds, pt declined. Attempted to voalte physician prior to pt leaving wtihout response. Pt taking off equipment, stating Give me my paperwork, I'm getting the hell out of here. Proper paper work filled out by pt and nurse, placed in chart. Educated pt on risks r/t leaving against medical advice. Advised pt to follow up with PCP.
--- NOTE | 2020-07-14 11:16 | PC.SOCIAL ---
Patient left AMA. This nurse called him to inquire if he is willing to have an appt scheduled to establish primary care. Patient was agreeable prefers not to see another provider than one he had seen previously. [facility] was called however he missed a new patient appt in 2017 and one in 2018 so they are not willing to schedule him. This nurse called [facility] and was told he could be scheduled with Dr Cano. Patient originally indicates he prefers morning appts however one was scheduled for 07/18/2020Saturday at 9am. When this nurse called patient back was told he will be out of town for work next week. This nurse educated patient that a 2pm appt was available tomorrow as well. 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 Notified Dr Garza as well since she requested an appointment be set up during Heart to Heart Rounds.
--- NOTE | 2020-07-14 11:30 | PM.DCS ---
Discharge Providers Date of Admission: 07/13/20 11:29 Date of Discharge: July 14, 2020 Attending Provider at Admission: Cyn Garza DO Attending Provider at Discharge: Cyn Garza DO Primary Care Provider: Peace Brothers MD Diagnoses at Discharge Discharge Diagnosis (1) DKA, type 1: Status: Acute Qualifiers: Diabetes mellitus complication detail: without coma Qualified Code(s): E10.10 - Type 1 diabetes mellitus with ketoacidosis without coma Reason for Visit Reason for Visit: TYPE 1 DIABETIC-SD POSS DKA Hospital Course Hospital Course: Patient was seen and evaluated in the emergency department noted to be in DKA. He was started on insulin drip and admitted to the ICU. He was given aggressive IV fluids had serial labs performed and when anion gap closed and appropriate he was transitioned to subcutaneous insulin. Before physician was able to round on patient on he demanded to leave AGAINST MEDICAL ADVICE began pulling at all of his lines and left the facility AGAINST MEDICAL ADVICE. Unable to see and evaluate patient before he left the hospital. Nursing reported that they disclosed to him the risk of leaving AGAINST MEDICAL ADVICE. Physical Exam Narrative: EXAM NARRATIVE: Unable to perform physical exam date of discharge due to patient leaving AGAINST MEDICAL ADVICE Discharge Data Data Completed and Pending: Completed Studies During Hospitalization Category Date Time Status XR chest 1V rick ble [id number] Urgent Exams 07/13/20 09:13 Completed Labs from last 24 hours 07/14/20 07/14/20 07/14/20 07:26 03:03 00:35 Sodium 133 L Potassium 3.9 Chloride 101 Carbon Dioxide 24 Anion Gap 11.9 BUN 23 H Creatinine 1.1 GFR Calculation 83.0 L Glucose 246 H POC Glucose 294 392 Estimat Average Gl ucose Hemoglobin A1c Calculated Osmolal ity 288 Calcium 8.5 07/13/20 07/13/20 07/13/20 21:37 20:38 20:28 Sodium 140 Potassium 3.8 Chloride 106 Carbon Dioxide 25 Anion Gap 12.8 BUN 26 H Creatinine 0.9 GFR Calculation 104.6 Glucose 118 H POC Glucose 103 158 Estimat Average Gl ucose Hemoglobin A1c Calculated Osmolal ity 296 H Calcium 8.8 07/13/20 07/13/20 07/13/20 19:34 18:35 17:35 Sodium 134 L Potassium 4.2 Chloride 102 Carbon Dioxide 24 Anion Gap 12.2 BUN 27 H Creatinine 1.0 GFR Calculation 92.6 Glucose 289 H POC Glucose 137 210 Estimat Average Gl ucose Hemoglobin A1c Calculated Osmolal ity 294 Calcium 8.8 07/13/20 07/13/20 07/13/20 16:28 16:05 15:14 Sodium Potassium Chloride Carbon Dioxide Anion Gap BUN Creatinine GFR Calculation Glucose POC Glucose 309 329 370 Estimat Average Gl ucose Hemoglobin A1c Calculated Osmolal ity Calcium 07/13/20 07/13/20 07/13/20 12:20 11:37 09:07 Sodium Potassium Chloride Carbon Dioxide Anion Gap BUN Creatinine GFR Calculation Glucose POC Glucose 211 271 Estimat Average Gl ucose 275 Hemoglobin A1c 11.2 H Calculated Osmolal ity Calcium Vitals: Last Vital Signs Temp 98.1 F 07/14/20 08:00 Pulse 96 07/14/20 09:00 Resp 14 07/14/20 09:00 BP 134/87 07/14/20 09:00 Pulse Ox 97 07/14/20 09:00 Discharge Plan Discharge Patient Disposition: Left Against Medical Advice Condition: Fair Prescriptions: No Action Novolin R Flexpen 100 unit/mL (3 mL) Insulin Pen See Rx Instructions .ROUTE .COMPLEX RF: 0 Novolin N Flexpen 100 unit/mL (3 mL) Insulin Pen 35 unit SUBCUT DAILY RF: 0 Referrals: Peace Brothers MD [Primary Care Provider] - Activity Restrictions/Additional Instructions: No specific discharge instructions were provided to patient as he did not want to stay in the hospital any longer despite counseling and left AGAINST MEDICAL ADVICE. 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
--- NOTE | 2020-07-15 08:13 | PC.RESP ---
SMOKING CESSATION INFORMATION SENT TO PATIENT.
[2020-07-15 11:15] LABS: Glucose Point of Care 206 mg/dL (70-110)
[2020-07-16 19:50] LABS: Glucose Point of Care 318 mg/dL (70-110)
[2020-07-16 19:50] LABS: Glucose Point of Care 221 mg/dL (70-110)
== END 2020-07-14 09:20 | disposition left against medical advice (07) | DRG 638 ==
LOC: ER 09:45 → ICU 14:56
PROVIDERS: Admitting Provider Family Medicine; Emergency Provider Physician Assistant; Family Provider Family Medicine; PCP Family Medicine; Visit Provider Family Medicine
DX: E10.10 Type 1 diabetes mellitus with ketoacidosis without coma (principal); N17.9 Acute kidney failure, unspecified; F17.210 Nicotine dependence, cigarettes, uncomplicated; E86.0 Dehydration; T38.3X6A Underdosing of insulin and oral hypoglycemic [antidiabetic] drugs, initial encounter; Z91.128 Patient's intentional underdosing of medication regimen for other reason; Z53.29 Procedure and treatment not carried out because of patient's decision for other reasons
CPT/HCPCS: 12345; 36415; 36416; 36600; 71045; 80048; 80051; 80053; 80306; 81003; 82009; 82810; 82962; 83036; 83986; 85025; 87426; 96372; 96375; 99283; J1815 ×2; J7030; J7050

== ENCOUNTER → 2020-07-15 14:37 | Outpatient (BNVA) | payer OTHER, SELFPAY | PROVIDERS: Family Provider Family Medicine; PCP Family Medicine; Visit Provider Family Medicine Adult Medicine | DX: E10.10 Type 1 diabetes mellitus with ketoacidosis without coma (principal) | CPT/HCPCS: 36416; 82962 ==

== ENCOUNTER 2020-09-04 00:23 | Emergency (ER) | payer OTHER, SELFPAY ==
[2020-09-04 00:35] VITALS: BP 145/84; PULSE 114; RESP 16; TEMP 36.7; O2SAT 97; BMI 22.1
--- NOTE | 2020-09-04 00:42 | XRR_ITS ---
PROCEDURE INFORMATION: Exam: XR Left Hand Exam date and time: 09/04/2020 12:45 AM Age: 25 years old Clinical indication: Pain; Hand; Left; Additional info: Injury TECHNIQUE: Imaging protocol: XR Left hand. Views: 3 or more views. COMPARISON: No relevant prior studies available. FINDINGS: Bones/joints: Normal. Soft tissues: Normal. XR/XR hand LT min 3V* [id number] IMPRESSION: No acute findings.
--- NOTE | 2020-09-04 00:53 | ED_ITS ---
HPI - Extremity Problem General: Chief complaint: Extremity Problem,Nontraumatic Stated complaint: lt hand pain Time Seen by Provider: 09/04/20 00:43 Source: patient Mode of arrival: ambulatory Limitations: no limitations History of Present Illness: HPI Narrative: Patient comes in today for complaints of redness and tenderness to the left hand. Patient is a type I diabetic. Patient reports that he was drinking 2 days ago with some friends and injury to his left hand. Today he noticed some redness to the hand and was concerned for infection. Patient appears well. Patient appears in no acute distress. Review of Systems General: Reports: 10 or more systems reviewed and unremarkable except in HPI and below Skin/Breast: Reports: erythema and skin tenderness [facility] ED PFSH: Medical History (Updated 09/04/20 @ 01:05 by SONIA Peterson) Diabetes mellitus DKA, type 1 Social History Smoking and tobacco status: current every day smoker cigarettes Packs smoked per day: 1 Alcohol intake: never Current occupational status: employed Physical Exam Const: COMMON NORMALS: no acute distress and patient oriented x3 GENERAL APPEARANCE: cooperative HENMT: COMMON NORMALS: normocephalic and Normal external nose present HEAD & SCALP: normal to inspection and normocephalic NOSE: Normal external nose present MOUTH: Normal oral and palatal mucosa present Eye: GENERAL EYE: appearance normal, both eyes and all related structures Neck/C-Spine: COMMON NORMALS: full ROM Chest: COMMONS NORMALS: normal inspection of the chest Resp: COMMON NORMALS: normal respiratory effort EFFORT & INSPECTION: Yes able to speak in complete sentences Cardio: COMMON NORMALS: regular rate and regular rhythm RATE: regular rate RHYTHM: regular rhythm GI: COMMON NORMALS: non-tender Back/Pelvis: COMMON NORMALS: thoracic and lumbar spine normal to inspection Extremity: COMMON NORMALS: normal to inspection Neuro: COMMON NORMALS: patient oriented x3 and moves all extremities Psych: COMMON NORMALS: mental status grossly normal and cooperative Skin: NARRATIVE SKIN EXAM: Redness is noted to the dorsal left hand. Minimal swelling to the hand is noted. There is a wound to the ring finger at that PIP joint line. Minimal swelling is noted to a dry wound. Course Vital Signs: Vital signs: Vital Signs Temperature 98.1 F 11/22/20 00:35 Pulse Rate 114 H 09/04/20 00:35 Respiratory Rate 16 09/04/20 00:35 Blood Pressure 145/84 09/04/20 00:35 Pulse Oximetry 97 09/04/20 00:35 MDM - Extremity (Nontraumatic) Differential Diagnosis: Extremity Problem Differential Diagnosis: Likely cellulitis Discharge Plan Discharge Patient Disposition: Home Clinical Impression: Cellulitis Qualifiers: Site of cellulitis: extremity Site of cellulitis of extremity: upper extremity Laterality: left Qualified Code(s): L03.114 - Cellulitis of left upper limb Condition: Stable Prescriptions: New ciprofloxacin HCl 500 mg tablet 500 mg PO BID Qty: 20 RF: 0 metronidazole 500 mg tablet 500 mg PO BID 10 Days Qty: 20 RF: 0 hydrocodone-acetaminophen 5-325 mg tablet 1 tab PO Q6H PRN (Reason: pain) Qty: 10 RF: 0 No Action Novolin N Flexpen 100 unit/mL (3 mL) insulin pen 35 unit SUBCUT DAILY Qty: 15 RF: 1 Novolin R Flexpen 100 unit/mL (3 mL) insulin pen See Rx Instructions .ROUTE .COMPLEX Qty: 15 RF: 1 Discharge Orders: Discharge Order (Routine); Ordered 09/04/20 Ordered By: Coleman Alexander Referrals: Peace Brothers MD [Primary Care Provider] - Discharge Diet: Usual diet Discharge Activity: Increase activity as tolerated Patient Instructions: Cellulitis (ED) Activity Restrictions/Additional Instructions: Take medications as directed. It is important to take the Cipro and metronidazole as ordered twice a day. You have a wound infection that needs to be treated. Follow-up with primary care in 2 to 3 days for recheck. Return to emergency department for high fever or new concerns. Coding Level of Care Code ED Department Assistant for [facility] Fwd Exam Comprehensive
[2020-09-04] MEDS: ciprofloxacin 500 mg Tablet PO (01:07)
[2020-09-04] MEDS: metroNIDAZOLE 500 MG Tablet PO (01:08)
[2020-09-04] MEDS: HYDROcodone-acetaminophen 5-325 mg Tablet 1 TAB PO (01:08)
[2020-09-04 01:11] VITALS: BP 132/86; PULSE 100; RESP 18; O2SAT 97
[2020-09-04] MEDS: cefTRIAXone 1,000 mg SDV 1000 MG IM (01:21)
[2020-09-04 01:30] VITALS: BP 126/72; PULSE 84; RESP 16; TEMP 36.3; O2SAT 98
== END 2020-09-04 01:33 | disposition home or self-care (01) ==
PROVIDERS: Emergency Provider Nurse Practitioner Family; PCP Family Medicine
DX: L03.114 Cellulitis of left upper limb (principal); Z79.4 Long term (current) use of insulin; E11.9 Type 2 diabetes mellitus without complications; F17.210 Nicotine dependence, cigarettes, uncomplicated
CPT/HCPCS: 12345; 73130; 96372; 99281; 99283; J0696

== ENCOUNTER 2020-10-28 18:35 | Inpatient (IN) | payer BC, SELFPAY ==
[2020-10-28] VITALS (24 sets, daily range): BP systolic 101–153; BP diastolic 50–102; PULSE 116–129; RESP 13–24; TEMP 36.3–37.1; O2SAT 95–100; BMI 21.9
--- NOTE | 2020-10-28 18:51 | PC.NURSE ---
Blood glucose read as HIGH, nurse and doctor have been notified
[2020-10-28 18:53] LABS: Glucose Point of Care > 600 mg/dL (70-110)
--- NOTE | 2020-10-28 18:59 | XRR_ITS ---
PROCEDURE INFORMATION: Exam: XR Chest, 1 View Exam date and time: 10/28/2020 7:21 PM Age: 25 years old Clinical indication: Other: Hypotension TECHNIQUE: Imaging protocol: XR of the chest Views: 1 view. COMPARISON: CR XR chest 1V portable [id number] 07/13/2020 9:16 AM FINDINGS: Lungs: Unremarkable. No consolidation. Pleural space: Unremarkable. No pleural effusion. No pneumothorax. Heart/Mediastinum: Unremarkable. No cardiomegaly. Bones/joints: Unremarkable. XR/XR chest 1V portable [id number] IMPRESSION: No acute findings.
[2020-10-28 19:08] LABS: Basophils # 0.1 10^3/uL (0.0-0.1); Basophils % 0.4 %; Hematocrit 56.1 % (42.0-52.0); Hemoglobin 16.2 g/dL (11.7-16.6); Lymphocytes # 2.2 10^3/uL (0.8-4.8); Lymphocytes % 6.3 %; Mean Corpuscular HGB Conc 28.9 g/dL (30.0-36.0); Mean Corpuscular Hemoglobin 30.2 pg (28.0-34.0); Mean Corpuscular Volume 104.7 fL (80-94); Mean Platelet Volume 12.5 fL (7.4-10.4); Monocytes # 2.1 10^3/uL (0.2-0.9); Monocytes % 6.2 %; Neutrophils # 29.42 10^3/uL (1.8-7.7); Neutrophils % 85.4 %; Nucleated Red Blood Cells % 0 %; Platelet Count 402 10^3/cmm (130-400); Red Blood Count 5.36 10^6/uL (4.1-5.3); Red Cell Distribution Width 12.9 % (12.1-15.1)
[2020-10-28 19:15] LABS: Ketone (Acetest) Serum Positive (Negative); White Blood Count 34.5 10^3/uL (4.0-10.0)
[2020-10-28] MEDS: sodium chloride 0.9% 1,000 ML 999 ML IV ×4 (19:16→22:55)
[2020-10-28] MEDS: ondansetron 2 mg/ML SDV 2 mL 4 MG IVP (19:16)
[2020-10-28 19:23] LABS: Arterial Blood Gas Hematocrit 44.2 % (42-52); Base Excess ABG -25.4 mmol/L (-2.0-2.0); Blood Gas Sample Site Brachial, left; Blood Gas Sample Type Arterial; HCO3 ABG 3.4 mmol/L (22-26); Oxygen Device ROOM AIR
[2020-10-28 19:24] LABS: ABG PCO2 12.9 mmHg (35-45); ABG PH Result 7.03 (7.35-7.45)
[2020-10-28 19:26] LABS: Alanine Aminotransferase 16 U/L (0-41); Albumin Level 4.4 g/dL (3.5-5.2); Alkaline Phosphatase 212 IU/L (40-130); Anion Gap 49.6 (5-19); Aspartate Amino Transferase 9 U/L (0-40); Blood Urea Nitrogen 59 mg/dL (6-20); Calcium 9.5 mg/dL (8.5-10.5); Chloride 80 mmol/L (98-107); Creatine Phosphokinase 41 U/L (39-308); Globulin 2.9 g/dL (1.3-4.6); Glomerular Filtration Rate 23.3 mL/min (90-130); Magnesium 3.7 mg/dL (1.7-2.3); Sodium 128 mmol/L (136-145); Total Bilirubin 0.2 mg/dL (0.15-1.2); Total Protein 7.3 g/dL (6.6-8.7)
[2020-10-28 19:34] LABS: Osmolality Calculated 354 mOsm/kg (285-295)
--- NOTE | 2020-10-28 19:39 | PC.NURSE ---
Recheck Citlalli CK reads HI .
[2020-10-28 19:41] LABS: Carbon Dioxide 5 mmol/L (22-29); Glucose 1379 mg/dL (65-115); Lactate (Lactic Acid level) 6.6 mmol/L (0.5-2.2); Potassium 6.6 mmol/L (3.5-5.1)
[2020-10-28 19:42] LABS: Glucose Point of Care > 600 mg/dL (70-110)
[2020-10-28] MEDS: insulin regular-human 100 units/1 mL 10 UNIT IVP (19:42)
[2020-10-28] MEDS: insulin regular-human 250 UNIT in sodium chloride 0.9% 250 ML IV (19:45)
--- NOTE | 2020-10-28 20:03 | PC.NURSE ---
started Insulin gtt at 4.55u 4.6ml/hr
--- NOTE | 2020-10-28 20:06 | PC.NURSE ---
one on one
[2020-10-28 20:25] LABS: Glucose Point of Care > 600 mg/dL (70-110)
[2020-10-28] MEDS: sodium chloride 0.9% 1,000 ML 2000 ML IV (20:45)
--- NOTE | 2020-10-28 20:52 | W.ED.NAVMDI ---
HPI - Nausea/Vomiting/Diarrhea General: Chief complaint: Nausea/Vomiting/Diarrhea Stated complaint: DM PROBLEMS Time Seen by Provider: 10/28/20 18:45 History of Present Illness: HPI Narrative: 25-year-old male type I diabetic here with vomiting. He was brought into the front door by family. They went to check on him after not hearing from them for 2 days. They checked his blood sugar, and it read high. He presents quite lethargic, and not answering all questions. He does answer yes when asked if he ran out of insulin. MD elicited complaint: nausea and vomiting Pertinent past history: other Onset (ago): day(s) Description of vomiting: watery Associated nausea: Yes Associated abdominal pain: Yes Location of pain: Diffuse Radiation: diffuse Pain consistency: constant Exacerbating factors: vomiting Associated symtoms: Reports nausea Review of Systems General: Reports: ROS unobtainable due to medical condition GI: Reports: nausea PFS ED PFSH: Medical History (Updated 10/29/20 @ 00:06 by Norris Judge DO) Diabetes type 1, uncontrolled History of DKA Surgical History (Updated 10/28/20 @ 22:50 by Kari Barboza MD) No history of previous surgery none known Family History Other Family history unknown Social History Smoking and tobacco status: current every day smoker cigarettes Packs smoked per day: 1 Alcohol intake: never Current occupational status: employed Physical Exam Const: GENERAL APPEARANCE: lethargic and ill appearing NUTRITIONAL APPEARANCE: thin ORIENTATION/CONSCIOUSNESS: Yes lethargic Eye: COMMON NORMALS: Equal, round and reactive pupils present and EOMs intact bilaterally PUPIL: Yes Equal, round and reactive pupils present Chest: COMMONS NORMALS: normal inspection of the chest Resp: COMMON NORMALS: clear to auscultation bilaterally EFFORT & INSPECTION: Yes tachypneic AUSCULTATION: clear to auscultation bilaterally Cardio: COMMON NORMALS: regular rhythm and Peripheral pulses 2+ throughout RATE: tachycardic RHYTHM: regular rhythm PERIPHERAL PULSES: Peripheral pulses 2+ throughout GI: INSPECTION: Yes normal to inspection PALPATION: Yes Tenderness to palpation present (GI) (Diffuse) Neuro: SENSORIUM/ORIENTATION: Yes lethargic Course Vital Signs: Vital signs: Vital Signs Temperature 97.3 F L 10/28/20 18:39 Pulse Rate 117 H 10/28/20 23:43 Respiratory Rate 15 10/28/20 22:53 Blood Pressure 134/76 10/28/20 22:53 Pulse Oximetry 95 10/28/20 23:43 MDM - Nausea/Vomiting/Diarrhea MDM Narrative: Medical decision making narrative: 25-year-old male type I diabetic with an anion gap of 49. His bicarbonate level is 5. pH is 7.03 on arrival. He has had 2 L of fluid, he is on his way through more. He has been given 10 units of IV insulin and started an IV drip of insulin. His initial glucose was 1379. He is more awake after fluid bolus. His potassium is 6.6, but with fluid and insulin should begin to come down. His creatinine is 3.3 which is alarming in a 25-year-old. He will require ICU admission on aggressive management of DKA with insulin drip and fluid support, with repeat electrolyte testing. Repeat BMP will be done here. Lab Data: Labs: Lab Results 10/28/20 10/28/20 10/28/20 Range/Units 18:49 19:01 19:01 WBC 34.5 H* (4.0-10.0) 10^3/ uL RBC 5.36 H (4.1-5.3) 10^6/u L Hgb 16.2 (11.7-16.6) g/dL Hct 56.1 H (42.0-52.0) % MCV 104.7 H (80-94) fL MCH 30.2 (28.0-34.0) pg MCHC 28.9 L (30.0-36.0) g/dL RDW 12.9 (12.1-15.1) % Plt Count 402 H (130-400) 10^3/c mm MPV 12.5 H (7.4-10.4) fL Neut % (Auto) 85.4 % Lymph % (Auto) 6.3 % [place] % (Auto) 6.2 % Eos % (Auto) 0.0 % Baso % (Auto) 0.4 % Neut # (Auto) 29.42 H (1.8-7.7) 10^3/u L Lymph # (Auto) 2.2 (0.8-4.8) 10^3/u L [place] # (Auto) 2.1 H (0.2-0.9) 10^3/u L Eos # (Auto) 0.0 (0.0-0.8) 10^3/u L Baso # (Auto) 0.1 (0.0-0.1) 10^3/u L Nucleated RBC % (a uto) 0 % Nucleated RBCs # 0.0 /100WBC Specimen Type Sample Site ABG pH (7.35-7.45) ABG pCO2 (35-45) mmHg ABG pO2 (80.0-100.0) mmH g ABG HCO3 (22-26) mmol/L ABG Base Excess (-2.0-2.0) mmol/ L [place] Test Hematocrit (42-52) % O2 Delivery Device Jailer/Training Officer ID Sodium 128 L (136-145) mmol/L Potassium 6.6 H* (3.5-5.1) mmol/L Chloride 80 L (98-107) mmol/L Carbon Dioxide 5 L* (22-29) mmol/L Anion Gap 49.6 H (5-19) BUN 59 H (6-20) mg/dL Creatinine 3.3 H (0.7-1.2) mg/dL GFR Calculation 23.3 L (90-130) mL/min Glucose 1379 H* (65-115) mg/dL POC Glucose > 600 H* (70-110) mg/dL Calculated Osmolal ity 354 H (285-295) mOsm/k g Lactate (0.5-2.2) mmol/L Calcium 9.5 (8.5-10.5) mg/dL Magnesium 3.7 H (1.7-2.3) mg/dL Total Bilirubin 0.2 (0.15-1.2) mg/dL AST 9 (0-40) U/L ALT 16 (0-41) U/L Alkaline Phosphata se 212 H (40-130) IU/L Creatine Kinase 41 (39-308) U/L Total Protein 7.3 (6.6-8.7) g/dL Albumin 4.4 (3.5-5.2) g/dL Globulin 2.9 (1.3-4.6) g/dL Urine Color (Yellow) Urine Appearance (CLEAR) Urine pH (5-7) Ur Specific Gravit y (1.005-1.030) Urine Protein (Negative) Urine Glucose (UA) (Normal) Urine Ketones (Negative) Urine Blood (Negative) Urine Nitrate (Negative) Urine Bilirubin (Negative) Urine Urobilinogen (Negative) mg/dL Ur Leukocyte Angela ase (Negative) Urine RBC (0-2) /hpf Urine WBC (0-5) /hpf Ur Squamous Epith Cells (0-5) /hpf Amorphous Sediment Urine Bacteria (NONE) /hpf Hyaline Casts /lpf Urine Mucus /hpf Serum Ketones (Negative) 10/28/20 10/28/20 10/28/20 Range/Units 19:01 19:01 19:20 WBC (4.0-10.0) 10^3/ uL RBC (4.1-5.3) 10^6/u L Hgb (11.7-16.6) g/dL Hct (42.0-52.0) % MCV (80-94) fL MCH (28.0-34.0) pg MCHC (30.0-36.0) g/dL RDW (12.1-15.1) % Plt Count (130-400) 10^3/c mm MPV (7.4-10.4) fL Neut % (Auto) % Lymph % (Auto) % [place] % (Auto) % Eos % (Auto) % Baso % (Auto) % Neut # (Auto) (1.8-7.7) 10^3/u L Lymph # (Auto) (0.8-4.8) 10^3/u L [place] # (Auto) (0.2-0.9) 10^3/u L Eos # (Auto) (0.0-0.8) 10^3/u L Baso # (Auto) (0.0-0.1) 10^3/u L Nucleated RBC % (a uto) % Nucleated RBCs # /100WBC Specimen Type Arterial Sample Site Brachial, left ABG pH 7.03 L* (7.35-7.45) ABG pCO2 12.9 L* (35-45) mmHg ABG pO2 139.0 H (80.0-100.0) mmH g ABG HCO3 3.4 L (22-26) mmol/L ABG Base Excess -25.4 L (-2.0-2.0) mmol/ L [place] Test N/a Hematocrit 44.2 (42-52) % O2 Delivery Device Room air Jailer/Training Officer ID Florian Sodium (136-145) mmol/L Potassium (3.5-5.1) mmol/L Chloride (98-107) mmol/L Carbon Dioxide (22-29) mmol/L Anion Gap (5-19) BUN (6-20) mg/dL Creatinine (0.7-1.2) mg/dL GFR Calculation (90-130) mL/min Glucose (65-115) mg/dL POC Glucose (70-110) mg/dL Calculated Osmolal ity (285-295) mOsm/k g Lactate 6.6 H* (0.5-2.2) mmol/L Calcium (8.5-10.5) mg/dL Magnesium (1.7-2.3) mg/dL Total Bilirubin (0.15-1.2) mg/dL AST (0-40) U/L ALT (0-41) U/L Alkaline Phosphata se (40-130) IU/L Creatine Kinase (39-308) U/L Total Protein (6.6-8.7) g/dL Albumin (3.5-5.2) g/dL Globulin (1.3-4.6) g/dL Urine Color (Yellow) Urine Appearance (CLEAR) Urine pH (5-7) Ur Specific Gravit y (1.005-1.030) Urine Protein (Negative) Urine Glucose (UA) (Normal) Urine Ketones (Negative) Urine Blood (Negative) Urine Nitrate (Negative) Urine Bilirubin (Negative) Urine Urobilinogen (Negative) mg/dL Ur Leukocyte Angela ase (Negative) Urine RBC (0-2) /hpf Urine WBC (0-5) /hpf Ur Squamous Epith Cells (0-5) /hpf Amorphous Sediment Urine Bacteria (NONE) /hpf Hyaline Casts /lpf Urine Mucus /hpf Serum Ketones Positive H (Negative) 10/28/20 10/28/20 10/28/20 Range/Units 19:38 20:22 20:41 WBC (4.0-10.0) 10^3/ uL RBC (4.1-5.3) 10^6/u L Hgb (11.7-16.6) g/dL Hct (42.0-52.0) % MCV (80-94) fL MCH (28.0-34.0) pg MCHC (30.0-36.0) g/dL RDW (12.1-15.1) % Plt Count (130-400) 10^3/c mm MPV (7.4-10.4) fL Neut % (Auto) % Lymph % (Auto) % [place] % (Auto) % Eos % (Auto) % Baso % (Auto) % Neut # (Auto) (1.8-7.7) 10^3/u L Lymph # (Auto) (0.8-4.8) 10^3/u L [place] # (Auto) (0.2-0.9) 10^3/u L Eos # (Auto) (0.0-0.8) 10^3/u L Baso # (Auto) (0.0-0.1) 10^3/u L Nucleated RBC % (a uto) % Nucleated RBCs # /100WBC Specimen Type Sample Site ABG pH (7.35-7.45) ABG pCO2 (35-45) mmHg ABG pO2 (80.0-100.0) mmH g ABG HCO3 (22-26) mmol/L ABG Base Excess (-2.0-2.0) mmol/ L [place] Test Hematocrit (42-52) % O2 Delivery Device Jailer/Training Officer ID Sodium (136-145) mmol/L Potassium (3.5-5.1) mmol/L Chloride (98-107) mmol/L Carbon Dioxide (22-29) mmol/L Anion Gap (5-19) BUN (6-20) mg/dL Creatinine (0.7-1.2) mg/dL GFR Calculation (90-130) mL/min Glucose (65-115) mg/dL POC Glucose > 600 H* > 600 H* (70-110) mg/dL Calculated Osmolal ity (285-295) mOsm/k g Lactate (0.5-2.2) mmol/L Calcium (8.5-10.5) mg/dL Magnesium (1.7-2.3) mg/dL Total Bilirubin (0.15-1.2) mg/dL AST (0-40) U/L ALT (0-41) U/L Alkaline Phosphata se (40-130) IU/L Creatine Kinase (39-308) U/L Total Protein (6.6-8.7) g/dL Albumin (3.5-5.2) g/dL Globulin (1.3-4.6) g/dL Urine Color Yellow (Yellow) Urine Appearance Clear (CLEAR) Urine pH 5 (5-7) Ur Specific Gravit y 1.010 (1.005-1.030) Urine Protein Neg (Negative) Urine Glucose (UA) 4+ H (Normal) Urine Ketones 2+ H (Negative) Urine Blood 2+ H (Negative) Urine Nitrate Negative (Negative) Urine Bilirubin Neg (Negative) Urine Urobilinogen Norm (Negative) mg/dL Ur Leukocyte Angela ase Negative (Negative) Urine RBC 0-4 H (0-2) /hpf Urine WBC 0-4 H (0-5) /hpf Ur Squamous Epith Cells 0-4 H (0-5) /hpf Amorphous Sediment Not Reportable Urine Bacteria Trace (NONE) /hpf Hyaline Casts 5-10 H /lpf Urine Mucus 1+ /hpf Serum Ketones (Negative) Critical Care Time Critical Care Time: Critical Care Time: Yes Total Critical Care Time: 35 Attestation: This case had a high probability of a clinically significant, sudden, or life threatening deterioration of this patient's condition which required my full and direct attention, intervention and personal management. Discharge Plan Discharge Patient Disposition: Admitted As Inpatient Admit Provider: Kari Barboza Clinical Impression: Diabetic ketoacidosis Qualifiers: Diabetes mellitus type: type 1 Diabetes mellitus complication detail: without coma Qualified Code(s): E10.10 - Type 1 diabetes mellitus with ketoacidosis without coma Condition: Stable Coding Level of Care Code ED Sewing Techniques Demonstrator for [facility] Fwd Exam Detailed
[2020-10-28 21:03] LABS: Add Urine Microscopic? YES; Bilirubin Urine Neg (Negative); Blood Urine 2+ (Negative); Glucose Urine UA 4+ (Normal); Ketones Urine 2+ (Negative); Leukocyte Esterase Urine Negative (Negative); Nitrate Urine Negative (Negative); Protein Urine Neg (Negative); Urine Appearance Clear (CLEAR); Urine Color Yellow (Yellow); Urobilinogen Urine Norm (Negative); pH Urine 5 (5-7)
--- NOTE | 2020-10-28 21:03 | PC.NURSE ---
Per provider, hold Accu CK now and repeat BMP at 2145.
[2020-10-28 21:09] LABS: Add Urine Culture? No; Bacteria Urine TRACE /hpf; Mucus Urine 1+ /hpf; RBC Urine 0-4 /hpf (0-2); Squamous Epithelial Cell Urine 0-4 /hpf (0-5); WBC Urine 0-4 /hpf (0-5)
--- NOTE | 2020-10-28 21:27 | PC.NURSE ---
Mother called to check on pt. Updated mother with Blood glucose and fluids. Per mother pt had a Blood glucose as high as 1050 in the past. Mother phone number is [phone] Father phone [phone]
--- NOTE | 2020-10-28 21:35 | P.HP_ITS ---
Providers/Chief Complaint Admitting Physician: Kari Barboza MD Primary Care Provider: Carlos Cano MD Chief Complaint: DM PROBLEMS History of Present Illness Jean Miller is a 25 year old male with type 1 diabetes mellitus who presented to the emergency room with nausea, vomiting. I am not able to get much of any history directly from him but according to the ER physician they were able to get out of him and from his family initially that he had run out of his insulin and had not been taking it for at least a couple of days. Blood sugar has been high. He has a history of DKA. Initial blood sugar here was 1379. Ketones were positive. Anion gap was 49. pH was 7.03 with a bicarb of 3. He has had between 5 and 6 L of normal saline. He received 10 units of insulin IV followed by initiation of insulin drip. Sugars have trended downward. He denies fever. He denied cough. He admitted to vomiting. Denied diarrhea. Reported some abdominal pain. Denied any sores. I asked him specific questions and he shook his head yes or no. I was not able to get much more than this at this time. He is being admitted to the ICU for continued aggressive management of DKA. Review of Systems General: Reports: ROS unobtainable due to mental status (Except as noted above in HPI) Medications/Allergies Home Medications Medication Instructions Recorded Confirmed Last Taken Type insulin NPH isoph U-100 human 100 35 unit SUBCUT DAILY #15 ml 07/19/20 Unknown Rx unit/mL (3 mL) subcutaneous pen insulin regular human 100 unit/mL See Rx Instructions .ROUTE 07/19/20 Unknown Rx (3 mL) subcutaneous pen .COMPLEX #15 ml ciprofloxacin HCl 500 mg PO BID #20 tab 09/04/20 Unknown Rx hydrocodone-acetaminophen 1 tab PO Q6H PRN #10 tab 09/04/20 Unknown Rx Allergies Allergy/AdvReac Type Severity Reaction Status Date / Time No Known Allergies Allergy Verified 09/04/20 00:41 PFSH Acute PFSH: Medical History (Updated 10/28/20 @ 23:03 by Kari Barboza MD) Diabetes type 1, uncontrolled History of DKA Surgical History (Updated 10/28/20 @ 22:50 by Kari Barboza MD) No history of previous surgery none known Family History Other Family history unknown Social History Smoking and tobacco status: current every day smoker cigarettes Packs smoked per day: 1 Alcohol intake: never Current occupational status: employed Supplemental [facility] Information: I am not able to get information about surgical history, other medical history, family history or social history directly from the patient at this time due to current mental status from metabolic encephalopathy Vitals/I&O/Wt Last Vital Signs Temp 97.3 F L 10/28/20 18:39 Pulse 122 H 10/28/20 21:15 Resp 15 10/28/20 21:15 BP 148/98 10/28/20 21:15 Pulse Ox 100 10/28/20 21:15 10/28/20 10/28/20 10/28/20 06:59 14:59 22:59 Intake Total 3000.00 / 3000.00 Output Total 30 / 30 Balance 2970.00 / 2970.00 Weight last 48 hrs Weight 63.503 kg Physical Exam Const: OTHER: Lethargic, will arouse with physical stimulation to a degree and answer some yes/no questions with nod of head but not otherwise interactive, quick to fall back asleep, thin build flushed appearing HENMT: OTHER: Normocephalic atraumatic, very dry mucous membranes, piercing noted to ears and left nares. Sore noted under the left nares with scabbing, some scabbing noted to the right angle of the mouth, lips dry Eye: OTHER: Injected conjunctive, pupils are reactive bilaterally, extraocular movements grossly intact Neck/C-Spine: OTHER: Supple, no lymphadenopathy noted Resp: OTHER: Tachypnea, shallow respirations, but otherwise clear Cardio: OTHER: Tachycardic, regular rhythm, no discernible murmur, pulses are 2+ and equal throughout, capillary refill around 3 seconds GI: OTHER: Abdomen soft, slightly scaphoid, mildly tender throughout, positive bowel sounds, no masses : OTHER: Urinal with clear yellow urine approximately 750 cc Extremity: NARRATIVE EXTREMITY EXAM: No pitting edema, no acutely swollen joints noted Neuro: OTHER: Face is symmetric, moves all extremities, otherwise not very cooperative with examination Psych: OTHER: Currently lethargic Skin: OTHER: Patient with a quite flushed appearance, multiple tattoos, couple of sores noted to the face, no other acute wounds appreciated, skin is very dry Data : 10/28/20 19:01 10/28/20 19: Other Labs: Laboratory Last Values WBC 34.5 10^3/uL (4.0-10.0) H* 10/28/20 19: RBC 5.36 10^6/uL (4.1-5.3) H 10/28/20 19: Hgb 16.2 g/dL (11.7-16.6) 10/28/20 19: Hct 56.1 % (42.0-52.0) H 10/28/20 19: MCV 104.7 fL (80-94) H 10/28/20 19: MCH 30.2 pg (28.0-34.0) 10/28/20 19: MCHC 28.9 g/dL (30.0-36.0) L 10/28/20 19: RDW 12.9 % (12.1-15.1) 10/28/20 19: Plt Count 402 10^3/cmm (130-400) H 10/28/20 19: MPV 12.5 fL (7.4-10.4) H 10/28/20 19: Neut % (Auto) 85.4 % 10/28/20 19: Lymph % (Auto) 6.3 % 10/28/20 19: [place] % (Auto) 6.2 % 10/28/20 19: Eos % (Auto) 0.0 % 10/28/20 19: Baso % (Auto) 0.4 % 10/28/20 19: Neut # (Auto) 29.42 10^3/uL (1.8-7.7) H 10/28/20 19: Lymph # (Auto) 2.2 10^3/uL (0.8-4.8) 10/28/20 19: [place] # (Auto) 2.1 10^3/uL (0.2-0.9) H 10/28/20 19: Eos # (Auto) 0.0 10^3/uL (0.0-0.8) 10/28/20 19:01 Baso # (Auto) 0.1 10^3/uL (0.0-0.1) 10/28/20 19:01 Nucleated RBC % (auto) 0 % 10/28/20 19:01 Nucleated RBCs # 0.0 /100WBC 10/28/20 19:01 Specimen Type Arterial 10/28/20 19:20 Sample Site Brachial, left 10/28/20 19:20 ABG pH 7.03 (7.35-7.45) L* 10/28/20 19:20 ABG pCO2 12.9 mmHg (35-45) L* 10/28/20 19:20 ABG pO2 139.0 mmHg (80.0-100.0) H 10/28/20 19:20 ABG HCO3 3.4 mmol/L (22-26) L 10/28/20 19:20 ABG Base Excess -25.4 mmol/L (-2.0-2.0) L 10/28/20 19:20 [place]re[place] Test N/a 10/28/20 19:20 Hematocrit 44.2 % (42-52) 10/28/20 19:20 O2 Delivery Device Room air 10/28/20 19:20 Referral And Information Aide ID Hinja 10/28/20 19:20 Sodium 128 mmol/L (136-145) L 10/28/20 19:01 Potassium 6.6 mmol/L (3.5-5.1) H* 10/28/20 19:01 Chloride 80 mmol/L (98-107) L 10/28/20 19:01 Carbon Dioxide 5 mmol/L (22-29) L* 10/28/20 19:01 Anion Gap 49.6 (5-19) H 10/28/20 19:01 BUN 59 mg/dL (6-20) H 10/28/20 19:01 Creatinine 3.3 mg/dL (0.7-1.2) H 10/28/20 19:01 GFR Calculation 23.3 mL/min (90-130) L 10/28/20 19:01 Glucose 1379 mg/dL (65-115) H* 10/28/20 19:01 POC Glucose > 600 mg/dL (70-110) H* 10/28/20 20:22 Calculated Osmolality 354 mOsm/kg (285-295) H 10/28/20 19:01 Lactate 6.6 mmol/L (0.5-2.2) H* 10/28/20 19:01 Calcium 9.5 mg/dL (8.5-10.5) 10/28/20 19:01 Phosphorus 3.4 mg/dL (2.5-4.5) 10/28/20 21:53 Magnesium 3.7 mg/dL (1.7-2.3) H 10/28/20 19:01 Total Bilirubin 0.2 mg/dL (0.15-1.2) 10/28/20 19:01 AST 9 U/L (0-40) 10/28/20 19:01 ALT 16 U/L (0-41) 10/28/20 19:01 Alkaline Phosphatase 212 IU/L (40-130) H 10/28/20 19:01 Creatine Kinase 41 U/L (39-308) 10/28/20 19:01 Troponin T Gen 5 ng/L 29 ng/L (0-15) H 10/28/20 21:53 Total Protein 7.3 g/dL (6.6-8.7) 10/28/20 19:01 Albumin 4.4 g/dL (3.5-5.2) 10/28/20 19:01 Globulin 2.9 g/dL (1.3-4.6) 10/28/20 19:01 Urine Color Yellow (Yellow) 10/28/20 20:41 Urine Appearance Clear (CLEAR) 10/28/20 20:41 Urine pH 5 (5-7) 10/28/20 20:41 Ur Specific [place] 1.010 (1.005-1.030) 10/28/20 20:41 Urine Protein Neg (Negative) 10/28/20 20:41 Urine Glucose (UA) 4+ (Normal) H 10/28/20 20:41 Urine Ketones 2+ (Negative) H 10/28/20 20:41 Urine Blood 2+ (Negative) H 10/28/20 20:41 Urine Nitrate Negative (Negative) 10/28/20 20:41 Urine Bilirubin Neg (Negative) 10/28/20 20:41 Urine Urobilinogen Norm mg/dL (Negative) 10/28/20 20:41 Ur Leukocyte Esterase Negative (Negative) 10/28/20 20:41 Urine RBC 0-4 /hpf (0-2) H 10/28/20 20:41 Urine WBC 0-4 /hpf (0-5) H 10/28/20 20:41 Ur Squamous Epith Cells 0-4 /hpf (0-5) H 10/28/20 20:41 Amorphous Sediment Not Reportable 10/28/20 20:41 Urine Bacteria Trace /hpf (NONE) 10/28/20 20:41 Hyaline Casts 5-10 /lpf H 10/28/20 20:41 Urine Mucus 1+ /hpf 10/28/20 20:41 Serum Ketones Positive (Negative) H 10/28/20 19:01 A&P Assessment and plan (1) Diabetic ketoacidosis: With associated severe elevation in glucose consistent with a component of hyperosmolar situation, significant leukocytosis without a currently identifiable source of infection, acute renal failure, volume contraction, hyponatremia, hypokalemia, acute kidney injury with lactic acidosis, metabolic encephalopathy, sinus tachycardia and other usual findings of DKA with nausea, vomiting and some abdominal discomfort as well. This instance by limited history obtained appears to be due to him running out of his insulin. Status: Acute Qualifiers: Diabetes mellitus type: type 1 Diabetes mellitus complication detail: without coma Qualified Code(s): E10.10 - Type 1 diabetes mellitus with ketoacidosis without coma (2) Acute kidney injury: Secondary to above, baseline renal function was normal in June to July 2020 Status: Acute (3) Diabetes type 1, uncontrolled: Status: Chronic Qualifiers: Glycemic state: with hyperglycemia Qualified Code(s): E10.65 - Type 1 diabetes mellitus with hyperglycemia Additional A&P Information Inpatient admission Continue insulin drip Follow-up pending labs and adjust fluids accordingly, anticipate changing to half-normal saline with potassium supplementation Every 4 hours electrolytes and ABGs initially Antiemetics if needed Check EKG and troponin Check hemoglobin A1c in the morning Blood cultures Recheck CBC in the morning Pepcid for GI prophylaxis Lovenox for GI prophylaxis Nicotine patch if needed Supportive care otherwise Full code Attempted to explain plans to the patient, he nodded his head a few times but I am not sure that he followed much. Attestations Medical Necessity Statement*: Anticipated stay greater than 2 midnights in this gentleman with diabetic ketoacidosis with blood sugar greater than 1000 and anion gap greater than 40, bicarb of 3.4 on initial ABG. He is quite ill- appearing and will require aggressive therapy with continued fluids, electrolyte replacement and ongoing insulin drip. Coding Level of Care Code Acute Berry Picker for Chg Fwd Diagnoses Diabetic ketoacidosis E10.10 Diabetes mellitus type: type 1 Diabetes mellitus complication detail: without coma Acute kidney injury N17.9 Diabetes type 1, uncontrolled E10.65 Glycemic state: with hyperglycemia
--- NOTE | 2020-10-28 22:19 | PC.NURSE ---
pt appears to be resting with eyes closed. Normal resp. Waiting for bed placement
[2020-10-28 22:20] LABS: Troponin T (5th) Once 29 ng/L (0-15)
--- NOTE | 2020-10-28 22:22 | ECG_ITS ---
[facility] Test Date: 2020-10-28 Pat Name: Jean Miller Department: Room: [facility]08 Gender: Male Database Report Writer: : 1995 Requested By: Norris Haney Order Number: [id number] Remy MD: Bishnu Dennis M.D. Measurements Intervals [place] Rate: 131 P: 85 NM: 153 QRS: 67 QRSD: 93 T: 69 QT: 291 QTc: 429 Interpretive Statements SINUS TACHYCARDIA TALL T-WAVES, SUGGESTS HYPERKALEMIA Compared to ECG 08/31/2018 08:05:21 No significant changes Electronically Signed On 10-30-2020 9:15:54 DECORATING MACHINE TENDER by Bishnu Dennis M.D. [email or web address] medical [id number] f
[2020-10-28 22:45] LABS: Anion Gap 30.4 (5-19); Blood Urea Nitrogen 46 mg/dL (6-20); Chloride 105 mmol/L (98-107); Glomerular Filtration Rate 41.6 mL/min (90-130); Magnesium 2.5 mg/dL (1.7-2.3); Osmolality Calculated 327 mOsm/kg (285-295); Potassium 4.4 mmol/L (3.5-5.1); Sodium 140 mmol/L (136-145)
[2020-10-28 22:47] LABS: Carbon Dioxide 9 mmol/L (22-29); Glucose 546 mg/dL (65-115)
[2020-10-28 22:48] LABS: Phosphorus 3.7 mg/dL (2.5-4.5)
--- NOTE | 2020-10-28 22:48 | PC.NURSE ---
Call to mother update about pt condition and Accu ck [phone] CO2 9
--- NOTE | 2020-10-28 23:08 | ECG_ITS ---
[facility] Test Date: 2020-10-28 Pat Name: Jean Miller Department: Room: 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 Measurements Intervals [place] Rate: 117 P: 81 OK: 133 QRS: 75 QRSD: 85 T: 71 QT: 298 QTc: 416 Interpretive Statements SINUS TACHYCARDIA ABNORMAL RHYTHM ECG INTERPRETATION BASED ON A DEFAULT AGE OF 40 YEARS Compared to ECG 10/28/2020 19:00:28 No significant changes Electronically Signed On 10-30-2020 20:23:58 DIAMOND BROKER by Bishnu Dennis M.D. [email or web address] toledo medical [email or web address] [id number] f
[2020-10-28] MEDS: enoxaparin 40 mg/0.4 mL Syringe SUBCUT (23:38)
[2020-10-28] MEDS: sodium chlor 0.45% +KCl 20 mEq 20 MEQ/1,000 ML BAG 150 MEQ IV (23:39)
[2020-10-28] MEDS: famotidine 20 mg/2 mL INJ IVP (23:39)
[2020-10-29] VITALS (21 sets, daily range): BP systolic 123–158; BP diastolic 75–107; PULSE 85–125; RESP 10–21; TEMP 36.7–37.6; O2SAT 95–100
[2020-10-29] MEDS: D5-NS 0.45% + KCL 20 mEq 20 MEQ/1,000 ML BAG 150 MEQ IV (00:28)
[2020-10-29 00:39] LABS: Troponin 5 2HR 25.82 ng/L (0-15)
[2020-10-29 00:50] LABS: Troponin 5 2HR Delta -3.18 ABS# (0-10)
--- NOTE | 2020-10-29 00:52 | PC.NURSE ---
0000 -- Blood glucose decreased to 261. Notified Dr. Barboza, order given to change IV fluids to D51/2 NS with 20meq KCL.
[2020-10-29 02:02] LABS: ABG PCO2 33.4 mmHg (35-45); ABG PH Result 7.35 (7.35-7.45); Arterial Blood Gas Hematocrit 45.2 % (42-52); Base Excess ABG -6.2 mmol/L (-2.0-2.0); Blood Gas Sample Site Brachial, left; Blood Gas Sample Type Arterial; HCO3 ABG 18.4 mmol/L (22-26); Oxygen Device ROOM AIR
[2020-10-29 02:36] LABS: Anion Gap 16.1 (5-19); Blood Urea Nitrogen 36 mg/dL (6-20); Calcium 8.4 mg/dL (8.5-10.5); Carbon Dioxide 18 mmol/L (22-29); Chloride 115 mmol/L (98-107); Glomerular Filtration Rate 68.4 mL/min (90-130); Glucose 227 mg/dL (65-115); Magnesium 2.4 mg/dL (1.7-2.3); Osmolality Calculated 315 mOsm/kg (285-295); Phosphorus 2.8 mg/dL (2.5-4.5); Potassium 4.1 mmol/L (3.5-5.1); Sodium 145 mmol/L (136-145)
[2020-10-29 04:04] LABS: Glucose Point of Care 261 mg/dL (70-110)
[2020-10-29 04:04] LABS: Glucose Point of Care 216 mg/dL (70-110)
[2020-10-29 04:04] LABS: Glucose Point of Care 166 mg/dL (70-110)
[2020-10-29 04:04] LABS: Glucose Point of Care 189 mg/dL (70-110)
--- NOTE | 2020-10-29 04:36 | ECG_ITS ---
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 Measurements Intervals [place] Rate: 115 P: 75 CO: 133 QRS: 64 QRSD: 84 T: 78 QT: 288 QTc: 399 Interpretive Statements SINUS TACHYCARDIA NONSPECIFIC T-WAVE ABNORMALITY ABNORMAL RHYTHM ECG Compared to ECG 10/28/2020 23:40:06 T-wave abnormality now present Electronically Signed On 10-30-2020 20:27:15 COMBINATION WELDER by Bishnu Dennis M.D. [id number]
[2020-10-29 05:11] LABS: Basophils % 0.2 %; Hemoglobin 14.2 g/dL (11.7-16.6); Lymphocytes # 2.1 10^3/uL (0.8-4.8); Lymphocytes % 8.4 %; Mean Corpuscular HGB Conc 33.8 g/dL (30.0-36.0); Mean Corpuscular Hemoglobin 30.8 pg (28.0-34.0); Mean Corpuscular Volume 91.1 fL (80-94); Mean Platelet Volume 11.3 fL (7.4-10.4); Monocytes % 8.2 %; Neutrophils # 20.52 10^3/uL (1.8-7.7); Neutrophils % 82.3 %; Nucleated Red Blood Cells % 0 %; Platelet Count 282 10^3/cmm (130-400); Red Blood Count 4.61 10^6/uL (4.1-5.3); Red Cell Distribution Width 12.9 % (12.1-15.1); White Blood Count 24.9 10^3/uL (4.0-10.0)
[2020-10-29 05:36] LABS: Troponin 5 6HR 22.64 ng/L (0-15)
[2020-10-29 05:41] LABS: Troponin 5 6HR Delta -6.36 ng/L (0-12)
[2020-10-29 05:55] LABS: ABG PCO2 37.8 mmHg (35-45); ABG PH Result 7.39 (7.35-7.45); Arterial Blood Gas Hematocrit 44.3 % (42-52); Blood Gas Sample Site Brachial, left; Blood Gas Sample Type Arterial; HCO3 ABG 22.7 mmol/L (22-26); Oxygen Device ROOM AIR; PO2 ABG 87.6 mmHg (80.0-100.0)
[2020-10-29 06:03] LABS: Estmated Average Glucose 298
[2020-10-29 07:05] LABS: Magnesium 2.3 mg/dL (1.7-2.3); Phosphorus 2.8 mg/dL (2.5-4.5)
[2020-10-29 07:19] LABS: Glucose Point of Care 135 mg/dL (70-110)
[2020-10-29 07:19] LABS: Glucose Point of Care 112 mg/dL (70-110)
[2020-10-29 07:19] LABS: Glucose Point of Care 89 mg/dL (70-110)
[2020-10-29 07:19] LABS: Glucose Point of Care 97 mg/dL (70-110)
[2020-10-29 07:22] LABS: Anion Gap 12.9 (5-19); Blood Urea Nitrogen 33 mg/dL (6-20); Calcium 8.6 mg/dL (8.5-10.5); Carbon Dioxide 21 mmol/L (22-29); Chloride 116 mmol/L (98-107); Glucose 109 mg/dL (65-115); Osmolality Calculated 310 mOsm/kg (285-295); Potassium 3.9 mmol/L (3.5-5.1); Sodium 146 mmol/L (136-145)
[2020-10-29 08:08] LABS: Glucose Point of Care 91 mg/dL (70-110)
--- NOTE | 2020-10-29 08:18 | PC.NURSE ---
Mother called for update and given update. Mother informed me that patient doesn't like hospitals and has been known to leave AMA. Mother told that we will highly discourage AMA and educate him on risks of leaving, but patient is an adult and not being held against his will.
--- NOTE | 2020-10-29 08:29 | PC.CHAP ---
Pastoral Care Encounter/Spiritual Assessment Type of Contact [] Declined c4 planner visit [] Patient/Family/Request visit [] Outpatient visit [] Follow-up visit [] Physician referral [] Code/Alert [] Routine visit [] Staff referral [] Actively dying [] Patient sleeping [] Family support [] [] Out of room [] Palliative care [] [] Receiving care in room [] Pre-surgical visit [] Trauma [] Long length of stay [x] ICU visit [] Other: Relational/Emotional Strength [] Patient feels connected with others/family/visitors/staff [] Distress [] Loneliness/isolation [] Abandonment Spirituality of Patient [] Person of Lea [] Attends Adventism of their Lea [] Believes in Prayer [] Reads Bible or Worship materials [] There are Spiritual issues to be addressed Customer Development Manager Interventions [x] Prayer [] Active listening [] Non-anxious presence [] Spiritual/emotional support [] Crisis/trauma care [] Spiritual counseling [] Bereavement support [] Provided bereavement packet [] Provided Bible/devotional materials [] Provided toy/stuffed animal, coloring book to patient or family member [] Provided Communion [] Anointing/[employer] [] Salvation [x] Completed spiritual assessment [] Other: Impact on Illness or Injury [] Angry [] Fearful [] Anxious [] Often cries [] Exhaustion [] Unable to work [] Unable to attend cheondoism [] Unable to walk/stand [] Unable to read [] Unable to drive [] Unable to eat/drink [] Unable to sleep [] Unable to be with family [] Patient intubated [] Other: Summary Time spent with patient
[2020-10-29] MEDS: D5-NS 0.45% + KCL 20 mEq 20 MEQ/1,000 ML BAG 125 MEQ IV (08:37)
[2020-10-29 09:25] LABS: Glucose Point of Care 73 mg/dL (70-110)
--- NOTE | 2020-10-29 09:27 | PC.NURSE ---
Insulin gtt off, BS 73, anion gap 12.9.
[2020-10-29 10:38] LABS: Anion Gap 11.9 (5-19); Blood Urea Nitrogen 29 mg/dL (6-20); Calcium 8.5 mg/dL (8.5-10.5); Carbon Dioxide 23 mmol/L (22-29); Chloride 114 mmol/L (98-107); Glucose 81 mg/dL (65-115); Osmolality Calculated 305 mOsm/kg (285-295); Potassium 3.9 mmol/L (3.5-5.1); Sodium 145 mmol/L (136-145)
[2020-10-29] MEDS: famotidine 20 mg/2 mL INJ IVP ×2 (11:01→23:10)
[2020-10-29 11:27] LABS: Magnesium 2.2 mg/dL (1.7-2.3); Phosphorus 3.1 mg/dL (2.5-4.5)
[2020-10-29] MEDS: sodium chloride 0.9% 1,000 ML 125 ML IV ×2 (12:49→20:48)
[2020-10-29] MEDS: insulin glargine 100 units/1 mL 5 UNIT SUBCUT (13:00)
--- NOTE | 2020-10-29 14:47 | P.PN_ITS ---
Vitals/I&O/Wt Last Vital Signs Temp 99.7 F H 10/29/20 10:00 Pulse 100 10/29/20 13:00 Resp 12 10/29/20 13:00 BP 127/90 10/29/20 13:00 Pulse Ox 99 10/29/20 13:00 10/28/20 10/29/20 10/29/20 22:59 06:59 14:59 Intake Total 3000.00 / 3000.00 1449.303 / 4449.303 609.484 / 609.484 Output Total 1650 / 1680 900 / 900 Balance 2970.00 / 2970.00 -200.697 / 2769.303 -290.516 / -290.516 Weight last 48 hrs Weight 63.73 kg Weight 63.503 kg Physical Exam Const: OTHER: Drowsy HENMT: OTHER: Normocephalic atraumatic, very dry mucous membranes, piercing noted to ears and left nares. Sore noted under the left nares with scabbing, some scabbing noted to the right angle of the mouth, lips dry Eye: OTHER: Injected conjunctive, pupils are reactive bilaterally, extraocular movements grossly intact Neck/C-Spine: OTHER: Supple, no lymphadenopathy noted Resp: OTHER: clear to auscultation bilaterally Cardio: OTHER: Tachycardic, regular rhythm, no discernible murmur, pulses are 2+ and equal throughout, capillary refill around 3 seconds GI: OTHER: Abdomen soft, slightly scaphoid, mildly tender throughout, positive bowel sounds, no masses : OTHER: Urinal with clear yellow urine approximately 750 cc Extremity: NARRATIVE EXTREMITY EXAM: No pitting edema, no acutely swollen joints noted Neuro: OTHER: Face is symmetric, moves all extremities, otherwise not very cooperative with examination Psych: OTHER: Currently lethargic Skin: OTHER: Patient with a quite flushed appearance, multiple tattoos, couple of sores noted to the face, no other acute wounds appreciated, skin is dry Data : 10/29/20 04:25 10/29/20 10:10 Micro: Microbiology 10/28/20 00:08 Blood Culture - Preliminary Blood SPECIMEN COLLECTED 10/28/20 00:05 Blood Culture - Preliminary Blood SPECIMEN COLLECTED A&P Assessment and plan (1) Diabetic ketoacidosis: Patient was transitioned off insulin drip Lantus 5 units given Will continue Lantus daily and titrate Initiate diabetic diet Sliding scale insulin Status: Acute Qualifiers: Diabetes mellitus type: type 1 Diabetes mellitus complication detail: without coma Qualified Code(s): E10.10 - Type 1 diabetes mellitus with ketoacidosis without coma (2) Acute kidney injury: Resolved Status: Acute (3) Diabetes type 1, uncontrolled: Will schedule outpatient endocrinology Home regimen : insulin NPH ISOPH U1 100 human (Novolin N FlexPen) 35 units subcutaneous daily as his long-acting insulin and then he takes insulin regular human (Novolin R FlexPen) on a sliding scale to supplement his long-acting Will prescribe Lantus a discharge May require aditional meal time insulin Status: Chronic Qualifiers: Glycemic state: with hyperglycemia Qualified Code(s): E10.65 - Type 1 diabetes mellitus with hyperglycemia (4) Leukocytosis: Follow-up on blood cultures No obvious source of infection Continue to monitor off antibiotics Noted to have low-grade temp Procalcitonin in a.m. Status: Acute Attestations Medical Necessity Statement*: will require additional day in hospital for optimization of his diabetic regimen Time Spent in Patient Care: Greater than 35 minutes (>than 50% of time spent in counselling and/or direct pt care on unit) . Coding Level of Care Code Acute Aluminum Hydroxide Process Operator for Jazmín Agosto Diagnoses Diabetic ketoacidosis E10.10 Diabetes mellitus type: type 1 Diabetes mellitus complication detail: without coma Acute kidney injury N17.9 Diabetes type 1, uncontrolled E10.65 Glycemic state: with hyperglycemia Leukocytosis D72.829
--- NOTE | 2020-10-29 15:41 | PC.NURSE ---
Addendum entered by Ammon Salinas RN 10/29/20 15:45: Food requested and given to patient. Original Note: Patient angry asking for D/C papers. Dr. Wisdom notified. Mom at bedside. Explained to PT and mother that D/C is not planned for today. Educated patient on severity of DKA and assisted complications of diabetes.
[2020-10-29 16:55] LABS: Glucose Point of Care 78 mg/dL (70-110)
[2020-10-29 17:15] LABS: Glucose Point of Care 255 mg/dL (70-110)
[2020-10-29] MEDS: enoxaparin 40 mg/0.4 mL Syringe SUBCUT (23:10)
[2020-10-30] VITALS (8 sets, daily range): BP systolic 125–139; BP diastolic 71–101; PULSE 56–90; RESP 12–17; TEMP 37–37.1; O2SAT 97–99
[2020-10-30] MEDS: sodium chloride 0.9% 1,000 ML 125 ML IV (04:36)
[2020-10-30 05:38] LABS: Basophils % 0.3 %; Eosinophils % 0.3 %; Hematocrit 37.5 % (42.0-52.0); Hemoglobin 12.3 g/dL (11.7-16.6); Lymphocytes # 1.8 10^3/uL (0.8-4.8); Lymphocytes % 20.3 %; Mean Corpuscular HGB Conc 32.8 g/dL (30.0-36.0); Mean Corpuscular Hemoglobin 30.2 pg (28.0-34.0); Mean Corpuscular Volume 92.1 fL (80-94); Mean Platelet Volume 11.6 fL (7.4-10.4); Monocytes # 0.8 10^3/uL (0.2-0.9); Monocytes % 8.7 %; Neutrophils # 6.37 10^3/uL (1.8-7.7); Neutrophils % 70.3 %; Nucleated Red Blood Cells % 0 %; Platelet Count 202 10^3/cmm (130-400); Red Blood Count 4.07 10^6/uL (4.1-5.3); Red Cell Distribution Width 13.1 % (12.1-15.1); White Blood Count 9.1 10^3/uL (4.0-10.0)
[2020-10-30 06:08] LABS: Alanine Aminotransferase 31 U/L (0-41); Albumin Level 2.9 g/dL (3.5-5.2); Alkaline Phosphatase 110 IU/L (40-130); Anion Gap 9.5 (5-19); Aspartate Amino Transferase 81 U/L (0-40); Blood Urea Nitrogen 17 mg/dL (6-20); Carbon Dioxide 27 mmol/L (22-29); Chloride 103 mmol/L (98-107); Globulin 1.9 g/dL (1.3-4.6); Glomerular Filtration Rate 119.8 mL/min (90-130); Glucose 205 mg/dL (65-115); Osmolality Calculated 289 mOsm/kg (285-295); Potassium 3.5 mmol/L (3.5-5.1); Sodium 136 mmol/L (136-145); Total Bilirubin 0.3 mg/dL (0.15-1.2); Total Protein 4.8 g/dL (6.6-8.7)
[2020-10-30] MEDS: insulin glargine 100 units/1 mL 5 UNIT SUBCUT (06:17)
[2020-10-30] MEDS: famotidine 20 mg/2 mL INJ IVP (11:15)
--- NOTE | 2020-10-30 11:29 | PC.ADMIT ---
[address] Admission Note: The patient,Jean Miller,25 y/o, was given written information regarding hospital policies, unit procedures and contact persons. Patient's smoking status: current every day smoker. Vital Signs - 8 hr 10/30/20 04:00 10/30/20 06:00 10/30/20 07:00 Temperature 98.6 F Pulse Rate 67 69 56 L Respiratory Rate 12 12 17 Blood Pressure 129/94 138/101 139/79 Pulse Oximetry 99 98 98 10/30/20 08:00 10/30/20 09:00 10/30/20 10:00 Temperature Pulse Rate 69 84 73 Respiratory Rate 12 15 13 Blood Pressure 131/99 129/99 125/98 Pulse Oximetry 97 97 98
--- NOTE | 2020-10-30 11:30 | PC.NURSE ---
This nurse entered room to check patients blood sugar and give scheduled medication and patient told this nurse that he wanted to leave AMA. Education was given and patient was advised against leaving. Patient still wished to leave [facility]. Dr. Arriaga was notified and AMA paper was signed. Family notified. Last blood glucose was 302 and sliding scale insulin was given per orders.
--- NOTE | 2020-10-30 12:02 | PC.NURSE ---
Patient exited facility at 1131
--- NOTE | 2020-10-30 16:20 | PM.DCS ---
Discharge Providers Date of Admission: 10/28/20 21:34 Date of Discharge: October 30, 2020 Attending Provider at Admission: Kari Barboza MD Attending Provider at Discharge: Cj Wisdom Primary Care Provider: Peace Brothers MD Diagnoses at Discharge Discharge Diagnosis (1) Diabetic ketoacidosis: Status: Acute Qualifiers: Diabetes mellitus type: type 1 Diabetes mellitus complication detail: without coma Qualified Code(s): E10.10 - Type 1 diabetes mellitus with ketoacidosis without coma (2) Acute kidney injury: Status: Acute (3) Diabetes type 1, uncontrolled: Status: Chronic Permanent problem details: History of DKA Qualifiers: Glycemic state: with hyperglycemia Qualified Code(s): E10.65 - Type 1 diabetes mellitus with hyperglycemia (4) Leukocytosis: Status: Acute Reason for Visit Reason for Visit: DM PROBLEMS Hospital Course Hospital Course 25 year old male with type 1 diabetes mellitus who presented to the emergency room with nausea, vomiting. I am not able to get much of any history directly from him but according to the ER physician they were able to get out of him and from his family initially that he had run out of his insulin and had not been taking it for at least a couple of days. Blood sugar has been high. He has a history of DKA. Initial blood sugar here was 1379. Ketones were positive. Anion gap was 49. pH was 7.03 with a bicarb of 3. He has had between 5 and 6 L of normal saline. He received 10 units of insulin IV followed by initiation of insulin drip. Sugars have trended downward. He denies fever. He denied cough. He admitted to vomiting. Denied diarrhea. Reported some abdominal pain. Denied any sores. I asked him specific questions and he shook his head yes or no. I was not able to get much more than this at this time. He is being admitted to the ICU for continued aggressive management of DKA. Patient was eventually transition from insulin drip to subcu insulin. He was started on oral diabetic diet. Continue be at tachycardic requiring IV fluids. In addition to adjustments of insulin. Leukocytosis had improved. Blood cultures had not shown growth. On 10/30/2020 prior to my evaluation patient had requested to leave AMA. This is something that the patient has done multiple times during previous admissions. Also had requested this on the . I had verbalized risk versus benefit to him on this day. Patient had left against medical advice again. Physical Exam Narrative: EXAM NARRATIVE: No exam on day of AMA Discharge Data Data Completed and Pending: Completed Studies During Hospitalization Category Date Time Status XR chest 1V rick ble [id number] Urgent Exams 10/28/20 18:59 Completed Pending at discharge Category Date Time Status ABG ONLY [Arteria l Blood Gas W/O Co ox] Routine Lab 10/29/20 10:00 Ordered Blood Culture Rou parth Lab 10/28/20 00:08 Results Labs from last 24 hours 10/30/20 10/30/20 10/30/20 11:10 08:29 07:06 POC Glucose 302 H 332 H 270 H 10/29/20 20:42 POC Glucose 239 H Vitals: Last Vital Signs Temp 98.6 F 10/30/20 04:00 Pulse 73 10/30/20 10:00 Resp 13 10/30/20 10:00 BP 125/98 10/30/20 10:00 Pulse Ox 98 10/30/20 10:00 Discharge Plan Discharge Patient Disposition: Left Against Medical Advice Condition: Stable Prescriptions: No Action Novolin N Flexpen 100 unit/mL (3 mL) insulin pen 35 unit SUBCUT DAILY Qty: 15 RF: 1 Novolin R Flexpen 100 unit/mL (3 mL) insulin pen See Rx Instructions .ROUTE .COMPLEX Qty: 15 RF: 1 ciprofloxacin HCl 500 mg tablet 500 mg PO BID Qty: 20 RF: 0 hydrocodone-acetaminophen 5-325 mg tablet 1 tab PO Q6H PRN (Reason: pain) Qty: 10 RF: 0 Discharge Attestations Time Spent in Discharge Care*: less than 30 min Quality Metrics Clinical Quality Measures During this hospital stay, did patient experience: None Coding Level of Care Code Acute Satellite Installation Technician for Chg Fwd Diagnoses Diabetic ketoacidosis E10.10 Diabetes mellitus type: type 1 Diabetes mellitus complication detail: without coma Acute kidney injury N17.9 Diabetes type 1, uncontrolled E10.65 Glycemic state: with hyperglycemia Leukocytosis D72.829
[2020-10-30 17:21] LABS: Glucose Point of Care 239 mg/dL (70-110)
[2020-10-30 17:21] LABS: Glucose Point of Care 270 mg/dL (70-110)
[2020-10-30 17:22] LABS: Glucose Point of Care 332 mg/dL (70-110)
[2020-10-30 17:22] LABS: Glucose Point of Care 302 mg/dL (70-110)
--- NOTE | 2020-11-01 09:24 | PC.RESP ---
SMOKING CESSATION INFORMATION SENT TO PATIENT.
== END 2020-10-30 11:37 | disposition left against medical advice (07) | DRG 637 ==
LOC: ER 21:31 → ICU 22:36
PROVIDERS: Admitting Provider Hospitalist; Emergency Provider Emergency Medicine; PCP Family Medicine; Visit Provider Hospitalist
DX: E10.10 Type 1 diabetes mellitus with ketoacidosis without coma (principal); G93.41 Metabolic encephalopathy; N17.9 Acute kidney failure, unspecified; E87.1 Hypo-osmolality and hyponatremia; E10.65 Type 1 diabetes mellitus with hyperglycemia; F17.210 Nicotine dependence, cigarettes, uncomplicated; E87.6 Hypokalemia; Z53.29 Procedure and treatment not carried out because of patient's decision for other reasons
CPT/HCPCS: 12345; 36415; 36416; 36600; 71045; 80048; 80053; 81001; 82009; 82550; 82803; 82962; 83036; 83605; 83735; 84100; 84145; 84484; 85025; 87040; 93005; 96372; 99284; J1650; J1815 ×2; J2405; J3490; J7030; J7050

== ENCOUNTER 2020-11-03 22:18 | Emergency (ER) | payer BC, SELFPAY ==
[2020-11-03 22:23] VITALS: BP 144/85; PULSE 104; RESP 18; TEMP 36.6; O2SAT 98; BMI 22.1
--- NOTE | 2020-11-03 22:41 | ED_ITS ---
HPI - Extremity Problem General: Chief complaint: Extremity Problem,Nontraumatic Stated complaint: left ankle swelling Time Seen by Provider: 11/03/20 22:40 History of Present Illness: HPI Narrative: 25-year-old male patient presents to the emergency department with sudden onset of left ankle, left lower leg swelling and pain with redness that started last night. He denies known trauma; he is insulin-dependent diabetic; recent stay in the ICU here due to diabetic ketoacidosis. He states his blood sugars have been less than 200 since hospital discharge; he has history of cellulitis, spontaneous occurrence. He denies fever or chills. MD Complaint: extremity pain and extremity swelling Onset (ago): day(s) (1) Pain Consistency: constant Location: left and lower extremity Severity scale (1-10): 7 Quality: burning and aching Radiation: proximal Relieving factors: rest Exacerbating factors: range of motion and weight bearing Associated symptoms: Reports arthralgias; Deny chest pain, fever(s) or rash Context: immobilization (due to ICU stay) Review of Systems General: Reports: 10 or more systems reviewed and unremarkable except in HPI and below Const: Reports: fatigue and malaise; Denies: fever(s), chills, body aches, change in appetite, night sweats or diaphoresis Eyes: Denies: change in vision, blurry vision, eye discomfort or eye redness ENMT: Denies: throat pain, uvular edema, mouth pain, dental pain, ear or mastoid pain or disequilibrium Card: Reports: swelling of feet/ankles; Denies: chest pain, palpitations, irregular heart rhythm, dyspnea on exertion or orthopnea Resp: Denies: dyspnea, productive cough, non-productive cough, wheezing or chest congestion GI: Denies: abdominal pain, nausea, vomiting, dysphagia, heartburn, diarrhea or constipation : Denies: dysuria Musc: Reports: joint pain, joint swelling, joint warmth and limited range of motion; Denies: neck pain, back pain or joint stiffness Skin/Breast: Denies: rash or pruritus Neuro: Denies: headache(s), weakness in extremities or behavioral changes Psych: Denies: anxiety or depression Basim/Lymph: Denies: easy bruising PFS ED PFSH: Medical History Diabetes type 1, uncontrolled History of DKA Surgical History No history of previous surgery none known Family History Other Family history unknown Social History Smoking and tobacco status: current every day smoker cigarettes Packs smoked per day: 1 Alcohol intake: never Current occupational status: employed Physical Exam Const: COMMON NORMALS: no acute distress, patient oriented x3, healthy appearing and alert GENERAL APPEARANCE: cooperative, comfortable and well hydrated HENMT: COMMON NORMALS: normocephalic, Normal external nose present and moist oral mucous membranes HEAD & SCALP: normocephalic NOSE: Normal external nose present THROAT: no uvular edema Eye: COMMON NORMALS: Equal, round and reactive pupils present and EOMs intact bilaterally GENERAL EYE: appearance normal, both eyes and all related structures PUPIL: Yes Equal, round and reactive pupils present Neck/C-Spine: COMMON NORMALS: full ROM and no lymphadenopathy GENERAL: Yes normal visual inspection and Yes trachea midline CERVICAL SPINE: Yes cervical ROM normal Lymph: LYMPHATIC: no lymphadenopathy noted Chest: COMMONS NORMALS: normal inspection of the chest and normal palpation of entire chest wall CHEST: No localized rib tenderness with anteroposterior compression Resp: COMMON NORMALS: normal respiratory effort, No retractions, No use of accessory muscles and clear to auscultation bilaterally EFFORT & INSPECTION: Yes able to speak in complete sentences, No abnormal respiratory pattern, No labored and No audible wheezes AUSCULTATION: clear to auscultation bilaterally Cardio: COMMON NORMALS: regular rate, regular rhythm, S1 normal heart sound present, S2 normal heart sound present and Peripheral pulses 2+ throughout RATE: regular rate RHYTHM: regular rhythm HEART SOUNDS: S1 normal heart sound present and S2 normal heart sound present PERIPHERAL PULSES: Peripheral pulses 2+ throughout GI: COMMON NORMALS: Normal to inspection, nondistended, normoactive bowel sounds present, Soft to palpation and non-tender INSPECTION: Yes normal to inspection PALPATION: Yes Soft to palpation : COMMON NORMALS: Yes no CVA tenderness BLADDER/KIDNEY EXAM: Yes no CVA tenderness Back/Pelvis: COMMON NORMALS: no CVA tenderness and thoracic and lumbar spine normal to inspection Extremity: COMMON NORMALS: normal to inspection, full ROM and capillary refill normal GENERAL: Yes normal exam except as noted LEFT LOWER EXTREMITY: Yes lower leg (erythema and edema to the distal left medial ankle, + left calf tenderness) Left lower leg: Yes palpation (pain to the left medial ankle and left calf) and Yes neurovascular exam (distally intact) EXTREMITY IMAGE (BACK): 1. erythema and edema noted to the left calf, ankle Neuro: COMMON NORMALS: patient oriented x3 and no focal motor deficits SENSORIUM/ORIENTATION: Yes alert Psych: COMMON NORMALS: mental status grossly normal, Normal thought process present and cooperative ACTIVITY/MOTOR BEHAVIOR: Yes appropriate eye contact THOUGHT PROCESS: Normal thought process present Skin: COMMON NORMALS: no rashes or lesions noted and turgor normal GENERAL SKIN EXAM: no rashes or lesions noted and turgor normal Course Vital Signs: Vital signs: Vital Signs Temperature 97.9 F 11/03/20 22:23 Pulse Rate 91 11/04/20 01:59 Respiratory Rate 16 11/04/20 01:59 Blood Pressure 142/96 11/04/20 01:59 Pulse Oximetry 98 11/04/20 01:59 MDM - Extremity (Nontraumatic) MDM Narrative: Medical decision making narrative: 25-year-old male patient presents to the emergency department with spontaneous onset of redness swelling and pain to the left lower extremity, left medial ankle. He also presented with left calf pain suspicious for DVT; recent hospital admission in ICU due to DKA. Venous Doppler ultrasound left lower extremity negative for DVT; x-ray left ankle revealed no acute fracture or abnormality. ESR 21, normal white blood count, chemistry with elevated glucose of 494 which was treated with 8 units of insulin SQ - he states taking his insulin as prescribed. I suggested CT scan of the left ankle due to inconclusive findings as cause of the redness swelling and pain. He states did not wish to stay for CT scan and wants to go home. I advised to initiate clindamycin as antimicrobial therapy, referral to podiatry completed through social sciences instructor. He states will follow up with his primary care physician tomorrow, Dr. Brothers. He states is tired of waiting and does not want any further testing. Agrees to return to the emergency department for worsening symptoms. Upon reevaluation prior to discharge, redness and swelling to the left lower extremity improved with elevation. Lab Data: Labs: Lab Results 11/03/20 11/03/20 11/03/20 Range/Units 23:50 23:50 23:50 WBC 8.9 (4.0-10.0) 10^3/ uL RBC 4.52 (4.1-5.3) 10^6/u L Hgb 13.6 (11.7-16.6) g/dL Hct 41.3 L (42.0-52.0) % MCV 91.4 (80-94) fL MCH 30.1 (28.0-34.0) pg MCHC 32.9 (30.0-36.0) g/dL RDW 11.9 L (12.1-15.1) % Plt Count 233 (130-400) 10^3/c mm MPV 11.2 H (7.4-10.4) fL Neut % (Auto) 61.3 % Lymph % (Auto) 25.0 % [place] % (Auto) 10.9 % Eos % (Auto) 1.8 % Baso % (Auto) 0.7 % Neut # (Auto) 5.45 (1.8-7.7) 10^3/u L Lymph # (Auto) 2.2 (0.8-4.8) 10^3/u L [place] # (Auto) 1.0 H (0.2-0.9) 10^3/u L Eos # (Auto) 0.2 (0.0-0.8) 10^3/u L Baso # (Auto) 0.1 (0.0-0.1) 10^3/u L Nucleated RBC % (a uto) 0 % Nucleated RBCs # 0.0 /100WBC ESR 21 H (0-10) mm/hr Sodium 133 L (136-145) mmol/L Potassium 4.8 (3.5-5.1) mmol/L Chloride 95 L (98-107) mmol/L Carbon Dioxide 30 H (22-29) mmol/L Anion Gap 12.8 (5-19) BUN 17 (6-20) mg/dL Creatinine 0.9 (0.7-1.2) mg/dL GFR Calculation 104.6 (90-130) mL/min Glucose 494 H (65-115) mg/dL Calculated Osmolal ity 300 H (285-295) mOsm/k g Calcium 9.2 (8.5-10.5) mg/dL Total Bilirubin 0.3 (0.15-1.2) mg/dL AST 17 (0-40) U/L ALT 24 (0-41) U/L Alkaline Phosphata se 185 H (40-130) IU/L Total Protein 5.9 L (6.6-8.7) g/dL Albumin 3.5 (3.5-5.2) g/dL Globulin 2.4 (1.3-4.6) g/dL Serum Ketones (Negative) 11/03/20 Range/Units 23:50 WBC (4.0-10.0) 10^3/ uL RBC (4.1-5.3) 10^6/u L Hgb (11.7-16.6) g/dL Hct (42.0-52.0) % MCV (80-94) fL MCH (28.0-34.0) pg MCHC (30.0-36.0) g/dL RDW (12.1-15.1) % Plt Count (130-400) 10^3/c mm MPV (7.4-10.4) fL Neut % (Auto) % Lymph % (Auto) % [place] % (Auto) % Eos % (Auto) % Baso % (Auto) % Neut # (Auto) (1.8-7.7) 10^3/u L Lymph # (Auto) (0.8-4.8) 10^3/u L [place] # (Auto) (0.2-0.9) 10^3/u L Eos # (Auto) (0.0-0.8) 10^3/u L Baso # (Auto) (0.0-0.1) 10^3/u L Nucleated RBC % (a uto) % Nucleated RBCs # /100WBC ESR (0-10) mm/hr Sodium (136-145) mmol/L Potassium (3.5-5.1) mmol/L Chloride (98-107) mmol/L Carbon Dioxide (22-29) mmol/L Anion Gap (5-19) BUN (6-20) mg/dL Creatinine (0.7-1.2) mg/dL GFR Calculation (90-130) mL/min Glucose (65-115) mg/dL Calculated Osmolal ity (285-295) mOsm/k g Calcium (8.5-10.5) mg/dL Total Bilirubin (0.15-1.2) mg/dL AST (0-40) U/L ALT (0-41) U/L Alkaline Phosphata se (40-130) IU/L Total Protein (6.6-8.7) g/dL Albumin (3.5-5.2) g/dL Globulin (1.3-4.6) g/dL Serum Ketones Negative (Negative) Imaging Data^: Xray Ortho: Radiologist's impression: [address] [address] XRay Report Signed Patient: Jean Miller Unit #: [id number] : [id number] Age/Sex: 25 / M ADM Date: 11/03/20 Loc: ER Room/Bed: Attending Dr: Ordering Provider/Ordering MD: Linda Barr Date of Service: 11/03/20 Procedure(s): XR ankle LT min 3V* [id number] Accession Number(s): [id number] Report Number: [id number] PROCEDURE INFORMATION: Exam: XR Left Ankle Exam date and time: 11/03/2020 12:06 AM Age: 25 years old Clinical indication: Swelling, leg or foot; Patient HX: Pain and swelling to left ankle. No recent injury. History of cellulitis. ; Additional info: Left ankle erythema TECHNIQUE: Imaging protocol: XR Left ankle. Views: 3 or more views. COMPARISON: No relevant prior studies available. FINDINGS: Bones/joints: There is no acute fracture or dislocation. If symptoms persist, follow-up imaging in several days may be useful to exclude an occult fracture. No other significant acute bone or joint abnormality. Soft tissues: No definite soft tissue gas. XR/XR ankle LT min 3V* [id number] IMPRESSION: 1. No acute fracture or dislocation. 2. Other findings discussed above. Dictated By: Vasyl Guerrier MD Signed By: Vasyl Guerrier MD Signed Date/Time: 11/04/2034 DD/ 0034 Discharge Plan Discharge Patient Disposition: Home Clinical Impression: Left leg cellulitis Diabetes type 1, uncontrolled Qualifiers: Glycemic state: with hyperglycemia Qualified Code(s): E10.65 - Type 1 diabetes mellitus with hyperglycemia Condition: Stable Prescriptions: New clindamycin HCl 300 mg capsule 300 mg PO QID 10 Days Qty: 40 RF: 0 IBU 800 mg tablet 800 mg PO TID PRN (Reason: pain) Qty: 30 RF: 0 Discontinued ciprofloxacin HCl 500 mg tablet 500 mg PO BID Qty: 20 RF: 0 No Action Novolin N Flexpen 100 unit/mL (3 mL) insulin pen 35 unit SUBCUT DAILY Qty: 15 RF: 1 Novolin R Flexpen 100 unit/mL (3 mL) insulin pen See Rx Instructions .ROUTE .COMPLEX Qty: 15 RF: 1 hydrocodone-acetaminophen 5-325 mg tablet 1 tab PO Q6H PRN (Reason: pain) Qty: 10 RF: 0 Discharge Orders: Discharge ED (Routine); Ordered 11/04/20 Ordered By: Linda Barr Referrals: Peace Brothers MD [Primary Care Provider] - Discharge Diet: Diabetic Discharge Activity: Limit activity as instructed Patient Instructions: Crutch Instructions (ED), Cellulitis (ED), Diabetes Mellitus Type 1 in Adults (ED) Activity Restrictions/Additional Instructions: May take Tylenol, 1000 mg p.o. 3 times daily as needed for breakthrough pain, do not take [id number] naproxen, Aleve, ibuprofen or Advil as duplication of therapy can occur with prescribed ibuprofen. Take clindamycin until all gone, even if feeling better Keep the left lower extremity elevated to help with swelling, apply cool compresses to help with swelling and pain, follow-up with your primary care provider tomorrow Referral to podiatry has been placed, social sciences instructor will contact you with an appointment, please follow-up to ensure you are improving Return to the emergency department if you develop concerning symptoms Coding Level of Care Code ED Internet Salesperson for Jazmín Agosto Exam Comprehensive
--- NOTE | 2020-11-03 22:55 | USCV_ITS ---
AngelaJean cervantes Age: 25 Gender: M : 1995 Exam Date: 11/03/2020 23:05 Ordering Phys: Linda Barr Technologist: Moy Machado [place] [facility] [place]ication: LT LEG PAIN AND EDEMA HISTORY: Lower extremity pain. PROCEDURES: Venous duplex imaging was performed in only the left lower extremity. The following venous structures were evaluated: common femoral vein, profunda vein, proximal portion of the greater saphenous vein, superficial femoral vein, and the popliteal vein. In addition, the posterior tibial and peroneal trunk were evaluated. FINDINGS: Normal 2-D Doppler and augmentation and compressibility throughout the lower extremity venous structures. Additional imaging through the proximal calf veins also reveals no thrombus. Limited evaluation of the greater saphenous vein is patent with no thrombus. CONCLUSIONS No DVT left lower extremity. Dr. Nicolle Coyne DO (Electronically Signed) Final Date: 04 November 2020 08:21 S
--- NOTE | 2020-11-03 23:33 | XRR_ITS ---
PROCEDURE INFORMATION: Exam: XR Left Ankle Exam date and time: 11/03/2020 12:06 AM Age: 25 years old Clinical indication: Swelling, leg or foot; Patient HX: Pain and swelling to left ankle. No recent injury. History of cellulitis. ; Additional info: Left ankle erythema TECHNIQUE: Imaging protocol: XR Left ankle. Views: 3 or more views. COMPARISON: No relevant prior studies available. FINDINGS: Bones/joints: There is no acute fracture or dislocation. If symptoms persist, follow-up imaging in several days may be useful to exclude an occult fracture. No other significant acute bone or joint abnormality. Soft tissues: No definite soft tissue gas. XR/XR ankle LT min 3V* [id number] IMPRESSION: 1. No acute fracture or dislocation. 2. Other findings discussed above.
[2020-11-03 23:59] LABS: Basophils # 0.1 10^3/uL (0.0-0.1); Basophils % 0.7 %; Eosinophils # 0.2 10^3/uL (0.0-0.8); Eosinophils % 1.8 %; Hematocrit 41.3 % (42.0-52.0); Hemoglobin 13.6 g/dL (11.7-16.6); Lymphocytes # 2.2 10^3/uL (0.8-4.8); Mean Corpuscular HGB Conc 32.9 g/dL (30.0-36.0); Mean Corpuscular Hemoglobin 30.1 pg (28.0-34.0); Mean Corpuscular Volume 91.4 fL (80-94); Mean Platelet Volume 11.2 fL (7.4-10.4); Monocytes % 10.9 %; Neutrophils # 5.45 10^3/uL (1.8-7.7); Neutrophils % 61.3 %; Nucleated Red Blood Cells % 0 %; Platelet Count 233 10^3/cmm (130-400); Red Blood Count 4.52 10^6/uL (4.1-5.3); Red Cell Distribution Width 11.9 % (12.1-15.1); White Blood Count 8.9 10^3/uL (4.0-10.0)
[2020-11-04] MEDS: HYDROcodone-acetaminophen 5-325 mg Tablet 1 TAB PO (00:14)
[2020-11-04 00:19] LABS: Alanine Aminotransferase 24 U/L (0-41); Albumin Level 3.5 g/dL (3.5-5.2); Alkaline Phosphatase 185 IU/L (40-130); Anion Gap 12.8 (5-19); Aspartate Amino Transferase 17 U/L (0-40); Blood Urea Nitrogen 17 mg/dL (6-20); Calcium 9.2 mg/dL (8.5-10.5); Carbon Dioxide 30 mmol/L (22-29); Chloride 95 mmol/L (98-107); Globulin 2.4 g/dL (1.3-4.6); Glomerular Filtration Rate 104.6 mL/min (90-130); Glucose 494 mg/dL (65-115); Osmolality Calculated 300 mOsm/kg (285-295); Potassium 4.8 mmol/L (3.5-5.1); Sodium 133 mmol/L (136-145); Total Bilirubin 0.3 mg/dL (0.15-1.2); Total Protein 5.9 g/dL (6.6-8.7)
[2020-11-04 00:37] LABS: Erythrocyte Sedimentation Rate 21 mm/hr (0-10)
[2020-11-04 01:20] LABS: Ketone (Acetest) Serum Negative (Negative)
[2020-11-04] MEDS: clindamycin 150 mg Capsule 300 MG PO (01:54)
[2020-11-04 01:59] VITALS: BP 142/96; PULSE 91; RESP 16; O2SAT 98
--- NOTE | 2020-11-04 10:52 | DCPLANNER ---
manager underwriting had message to schedule a follow up appointment for patient with ortho. manager underwriting called the ortho clinic, spoke with Jeanette, gave clinic patients information. manager underwriting was told that patients information would be printed and reviewed. Clinic will call patient with appointment information.
--- NOTE | 2020-11-08 08:00 | DCPLANNER ---
Patient had a follow up appointment scheduled for 11.07.20 with ortho - patient did not attend appointment.
== END 2020-11-04 02:02 | disposition home or self-care (01) ==
PROVIDERS: Emergency Provider Nurse Practitioner Family; PCP Family Medicine
DX: L03.116 Cellulitis of left lower limb (principal); E10.65 Type 1 diabetes mellitus with hyperglycemia; Z79.4 Long term (current) use of insulin; F17.210 Nicotine dependence, cigarettes, uncomplicated
CPT/HCPCS: 12345; 73610; 80053; 82009; 85025; 85651; 93971; 96372; 99281; 99283; J1815

== ENCOUNTER → 2020-12-08 10:03 | Outpatient (BNVA) | payer BC, SELFPAY | PROVIDERS: PCP Family Medicine; Referring Provider Family Medicine; Visit Provider Internal Medicine | DX: E10.65 Type 1 diabetes mellitus with hyperglycemia (principal); Z79.4 Long term (current) use of insulin; E16.0 Drug-induced hypoglycemia without coma; T38.3X5A Adverse effect of insulin and oral hypoglycemic [antidiabetic] drugs, initial encounter | CPT/HCPCS: 99204 ==

== ENCOUNTER 2020-12-25 19:36 | Emergency (ER) | payer SELFPAY ==
[2020-12-25 19:42] VITALS: BP 127/88; PULSE 101; RESP 14; TEMP 36.4; O2SAT 100
[2020-12-25] MEDS: ondansetron 2 mg/ML SDV 2 mL 4 MG IVP (20:30)
[2020-12-25 20:44] LABS: Glucose Point of Care 305 mg/dL (70-110)
[2020-12-25] MEDS: sodium chloride 0.9% 1,000 ML 999 ML IV (20:52)
[2020-12-25 21:04] LABS: Basophils % 0.3 %; Eosinophils % 0.1 %; Hematocrit 43.5 % (42.0-52.0); Hemoglobin 14.5 g/dL (11.7-16.6); Lymphocytes # 1.8 10^3/uL (0.8-4.8); Lymphocytes % 25.8 %; Mean Corpuscular HGB Conc 33.3 g/dL (30.0-36.0); Mean Corpuscular Hemoglobin 30.3 pg (28.0-34.0); Mean Corpuscular Volume 90.8 fL (80-94); Monocytes # 0.7 10^3/uL (0.2-0.9); Monocytes % 10.1 %; Neutrophils # 4.51 10^3/uL (1.8-7.7); Neutrophils % 63.4 %; Nucleated Red Blood Cells % 0 %; Platelet Count 222 10^3/cmm (130-400); Red Blood Count 4.79 10^6/uL (4.1-5.3); Red Cell Distribution Width 12.9 % (12.1-15.1); White Blood Count 7.1 10^3/uL (4.0-10.0)
[2020-12-25 21:24] LABS: Lactate (Lactic Acid level) 1.6 mmol/L (0.5-2.2)
[2020-12-25 21:25] LABS: Alanine Aminotransferase 22 U/L (0-41); Albumin Level 3.4 g/dL (3.5-5.2); Alkaline Phosphatase 105 IU/L (40-130); Anion Gap 13.6 (5-19); Aspartate Amino Transferase 20 U/L (0-40); Blood Urea Nitrogen 24 mg/dL (6-20); Calcium 8.6 mg/dL (8.5-10.5); Carbon Dioxide 26 mmol/L (22-29); Chloride 96 mmol/L (98-107); Globulin 2.3 g/dL (1.3-4.6); Glomerular Filtration Rate 139.8 mL/min (90-130); Glucose 333 mg/dL (65-115); Lipase 226 U/L (13-60); Osmolality Calculated 289 mOsm/kg (285-295); Potassium 4.6 mmol/L (3.5-5.1); Sodium 131 mmol/L (136-145); Total Bilirubin 0.5 mg/dL (0.15-1.2); Total Protein 5.7 g/dL (6.6-8.7)
[2020-12-25 22:34] LABS: Glucose Point of Care 142 mg/dL (70-110)
--- NOTE | 2020-12-25 23:37 | W.ED.NAVMDI ---
HPI - Nausea/Vomiting/Diarrhea General: Chief complaint: Nausea/Vomiting/Diarrhea Stated complaint: fatigue, has diabetes Time Seen by Provider: 12/25/20 19:49 History of Present Illness: HPI Narrative: The patient is a 25-year-old male with type 1 diabetes who comes to the ER complaining of nausea and vomiting for the past few days. He says he has not eaten anything for at least a day and a half. He says he has not felt right for the past 2 months since he was admitted with DKA. He complains of upper abdominal pain worse with his vomiting episodes but it does hurt when he is not vomiting also. He says he is not able to tolerate anything by mouth. MD elicited complaint: nausea and vomiting Associated nausea: Yes Quality: sharp Exacerbating factors: eating Associated symtoms: Reports no associated symptoms and nausea; Denies anxiety, change in vision, chest pain, dizziness, fatigue, headache(s) or palpitations Review of Systems General: Reports: 10 or more systems reviewed and unremarkable except in HPI and below Const: Denies: fatigue Eyes: Denies: change in vision, blurry vision or eye redness ENMT: Denies: throat pain, swelling of lips/tongue, ear or mastoid pain or nasal congestion Card: Denies: chest pain, palpitations, irregular heart rhythm, edema, dyspnea on exertion or orthopnea Resp: Denies: dyspnea, productive cough or non-productive cough GI: Reports: abdominal pain, nausea and vomiting; Denies: diarrhea or GI cramping : Denies: flank pain, urinary frequency or urinary urgency Musc: Denies: neck pain, back pain, extremity pain, joint pain, joint redness, limited range of motion or muscle weakness Skin/Breast: Denies: rash, pruritus, erythema, skin pain or skin tenderness Neuro: Denies: headache(s), numbness in extremities, weakness in extremities, sensory changes, difficulty walking, dizziness, confusion or Slurred speech present Psych: Denies: anxiety or depression Endo: Denies: polyuria All/Imm: Denies: urticaria, throat swelling or tongue swelling PFSH ED PFSH: Medical History Diabetes type 1, uncontrolled History of DKA Surgical History No history of previous surgery none known Family History Other Family history unknown Social History Smoking and tobacco status: current every day smoker cigarettes Packs smoked per day: 1 Alcohol intake: never Current occupational status: employed Physical Exam Const: COMMON NORMALS: no acute distress, average body habitus, patient oriented x3, no limitations, healthy appearing, alert and well nourished GENERAL APPEARANCE: cooperative, comfortable, well kempt and well developed ORIENTATION/CONSCIOUSNESS: Yes awake, Yes oriented to person, Yes oriented to place and Yes oriented to time HENMT: COMMON NORMALS: normocephalic, external ears normal and Normal external nose present HEAD & SCALP: normal to inspection and normocephalic NOSE: Normal external nose present EXTERNAL EAR: Yes external ears normal MOUTH: Normal oral and palatal mucosa present THROAT: posterior oropharynx normal Eye: COMMON NORMALS: Equal, round and reactive pupils present and EOMs intact bilaterally GENERAL EYE: appearance normal, both eyes and all related structures PUPIL: Yes Equal, round and reactive pupils present Neck/C-Spine: COMMON NORMALS: full ROM, no lymphadenopathy, no meningeal signs and no JVD GENERAL: Yes normal visual inspection Lymph: LYMPHATIC: no lymphadenopathy noted Chest: COMMONS NORMALS: normal inspection of the chest and normal palpation of entire chest wall Resp: COMMON NORMALS: normal respiratory effort, No retractions, No use of accessory muscles, clear to auscultation bilaterally and percussion normal EFFORT & INSPECTION: Yes able to speak in complete sentences AUSCULTATION: clear to auscultation bilaterally PERCUSSION: percussion normal Cardio: COMMON NORMALS: no JVD, regular rate, regular rhythm, S1 normal heart sound present, S2 normal heart sound present and Peripheral pulses 2+ throughout RATE: regular rate RHYTHM: regular rhythm HEART SOUNDS: S1 normal heart sound present and S2 normal heart sound present PERIPHERAL PULSES: Peripheral pulses 2+ throughout GI: COMMON NORMALS: Normal to inspection, nondistended, normoactive bowel sounds present, Soft to palpation and no masses INSPECTION: Yes normal to inspection PALPATION: Yes Soft to palpation and Yes Tenderness to palpation present (GI) (Epigastric) OTHER: Soft. No rebound tenderness : COMMON NORMALS: Yes no CVA tenderness BLADDER/KIDNEY EXAM: Yes no CVA tenderness Back/Pelvis: COMMON NORMALS: no CVA tenderness, thoracic and lumbar spine normal to inspection, no thoracic nor lumbar tenderness and thoraco-lumbar ROM normal Extremity: COMMON NORMALS: normal to inspection, full ROM, capillary refill normal, no joint enlargement and no pedal edema GENERAL: Yes normal exam except as noted Neuro: COMMON NORMALS: patient oriented x3, CN's II-XII intact bilaterally, moves all extremities, no focal motor deficits, no sensory deficits noted and gait normal SENSORIUM/ORIENTATION: Yes alert, Yes oriented to person, Yes oriented to place and Yes oriented to time MENINGEAL SIGNS: Yes no meningeal signs Psych: COMMON NORMALS: mental status grossly normal, Normal thought process present, cooperative, normal affect and speech normal APPEARANCE: Yes well kempt ATTITUDE: Yes calm SPEECH: Yes normal speech THOUGHT PROCESS: Normal thought process present Skin: COMMON NORMALS: no rashes or lesions noted GENERAL SKIN EXAM: no rashes or lesions noted Course Vital Signs: Vital signs: Vital Signs Temperature 97.5 F L 12/25/20 19:42 Pulse Rate 101 H 12/25/20 19:42 Respiratory Rate 14 12/25/20 19:42 Blood Pressure 127/88 12/25/20 19:42 Pulse Oximetry 100 12/25/20 19:42 MDM - Nausea/Vomiting/Diarrhea MDM Narrative: Medical decision making narrative: The patient came in with nausea vomiting and epigastric tenderness. Lipase is also elevated. He was given IV fluids and Zofran and was later eating chips in the ED. He requested to leave AGAINST MEDICAL ADVICE because he does not want to IV anymore and he feels like after the fluids were done nothing was being done for him. I discussed a CT was ordered of his belly and he was about ready to go down for it. I discussed with him his elevated lipase and acute pancreatitis and the significance of that. He again requested to leave AGAINST MEDICAL ADVICE. I warned him of possible deterioration of his condition he understands and accepts that risk and signed AMA. Lab Data: Labs: Lab Results 12/25/20 12/25/20 12/25/20 Range/Units 20:29 20:40 20:40 WBC 7.1 (4.0-10.0) 10^3/ uL RBC 4.79 (4.1-5.3) 10^6/u L Hgb 14.5 (11.7-16.6) g/dL Hct 43.5 (42.0-52.0) % MCV 90.8 (80-94) fL MCH 30.3 (28.0-34.0) pg MCHC 33.3 (30.0-36.0) g/dL RDW 12.9 (12.1-15.1) % Plt Count 222 (130-400) 10^3/c mm MPV 11.0 H (7.4-10.4) fL Neut % (Auto) 63.4 % Lymph % (Auto) 25.8 % [place] % (Auto) 10.1 % Eos % (Auto) 0.1 % Baso % (Auto) 0.3 % Neut # (Auto) 4.51 (1.8-7.7) 10^3/u L Lymph # (Auto) 1.8 (0.8-4.8) 10^3/u L [place] # (Auto) 0.7 (0.2-0.9) 10^3/u L Eos # (Auto) 0.0 (0.0-0.8) 10^3/u L Baso # (Auto) 0.0 (0.0-0.1) 10^3/u L Nucleated RBC % (a uto) 0 % Nucleated RBCs # 0.0 /100WBC Sodium 131 L (136-145) mmol/L Potassium 4.6 (3.5-5.1) mmol/L Chloride 96 L (98-107) mmol/L Carbon Dioxide 26 (22-29) mmol/L Anion Gap 13.6 (5-19) BUN 24 H (6-20) mg/dL Creatinine 0.7 (0.7-1.2) mg/dL GFR Calculation 139.8 H (90-130) mL/min Glucose 333 H (65-115) mg/dL POC Glucose 305 H (70-110) mg/dL Calculated Osmolal ity 289 (285-295) mOsm/k g Lactate (0.5-2.2) mmol/L Calcium 8.6 (8.5-10.5) mg/dL Total Bilirubin 0.5 (0.15-1.2) mg/dL AST 20 (0-40) U/L ALT 22 (0-41) U/L Alkaline Phosphata se 105 (40-130) IU/L Total Protein 5.7 L (6.6-8.7) g/dL Albumin 3.4 L (3.5-5.2) g/dL Globulin 2.3 (1.3-4.6) g/dL Lipase 226 H (13-60) U/L 12/25/20 12/25/20 Range/Units 20:40 22:30 WBC (4.0-10.0) 10^3/ uL RBC (4.1-5.3) 10^6/u L Hgb (11.7-16.6) g/dL Hct (42.0-52.0) % MCV (80-94) fL MCH (28.0-34.0) pg MCHC (30.0-36.0) g/dL RDW (12.1-15.1) % Plt Count (130-400) 10^3/c mm MPV (7.4-10.4) fL Neut % (Auto) % Lymph % (Auto) % [place] % (Auto) % Eos % (Auto) % Baso % (Auto) % Neut # (Auto) (1.8-7.7) 10^3/u L Lymph # (Auto) (0.8-4.8) 10^3/u L [place] # (Auto) (0.2-0.9) 10^3/u L Eos # (Auto) (0.0-0.8) 10^3/u L Baso # (Auto) (0.0-0.1) 10^3/u L Nucleated RBC % (a uto) % Nucleated RBCs # /100WBC Sodium (136-145) mmol/L Potassium (3.5-5.1) mmol/L Chloride (98-107) mmol/L Carbon Dioxide (22-29) mmol/L Anion Gap (5-19) BUN (6-20) mg/dL Creatinine (0.7-1.2) mg/dL GFR Calculation (90-130) mL/min Glucose (65-115) mg/dL POC Glucose 142 H (70-110) mg/dL Calculated Osmolal ity (285-295) mOsm/k g Lactate 1.6 (0.5-2.2) mmol/L Calcium (8.5-10.5) mg/dL Total Bilirubin (0.15-1.2) mg/dL AST (0-40) U/L ALT (0-41) U/L Alkaline Phosphata se (40-130) IU/L Total Protein (6.6-8.7) g/dL Albumin (3.5-5.2) g/dL Globulin (1.3-4.6) g/dL Lipase (13-60) U/L Discharge Plan Discharge Patient Disposition: Left Against Medical Advice Clinical Impression: Abdominal pain, Nausea & vomiting Condition: Stable Prescriptions: No Action Levemir FlexTouch U-100 Insuln 100 unit/mL (3 mL) insulin pen 20 unit SUBCUT DAILY RF: 0 Novolin R Flexpen 100 unit/mL (3 mL) insulin pen 10 unit .ROUTE TID RF: 0 IBU 800 mg tablet 800 mg PO TID PRN (Reason: pain) Qty: 30 RF: 0 Referrals: [facility] MD [Primary Care Provider] - Patient Instructions: Abdominal Pain (ED) Coding Level of Care Code ED [employer] for Chg Surendra
--- NOTE | 2020-12-26 02:20 | PC.NURSE ---
after fluid and zofran adm, pt requesting to remove IV prior to CT exam. Dr notified. Dr notified with staff and pt's mother present reason for CT scan and risks of leaving prior to completion of full exam and pt will be leaving Against Medical Advice. Pt requesting to leave AMA, willing to sign AMA form. Form signed by pt, witnessed by staff, IV removed
== END 2020-12-25 22:45 | disposition left against medical advice (07) ==
PROVIDERS: Emergency Provider Family Medicine; PCP Family Medicine
DX: R11.2 Nausea with vomiting, unspecified (principal); R10.9 Unspecified abdominal pain; Z79.4 Long term (current) use of insulin; E10.9 Type 1 diabetes mellitus without complications; F17.210 Nicotine dependence, cigarettes, uncomplicated
CPT/HCPCS: 36416; 80053; 82962; 83605; 83690; 85025; 96372; J1815; J2405; J7030

== ENCOUNTER 2021-03-16 15:00 | Inpatient (IN) | payer BC, SELFPAY ==
[2021-03-16] VITALS (11 sets, daily range): BP systolic 118–149; BP diastolic 70–103; PULSE 101–134; RESP 13–22; TEMP 36.3; O2SAT 96–100
--- NOTE | 2021-03-16 15:32 | ECG_ITS ---
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 Measurements Intervals [place] Rate: 135 P: 82 LA: 136 QRS: 69 QRSD: 86 T: 78 QT: 278 QTc: 417 Interpretive Statements SINUS TACHYCARDIA Compared to ECG 10/29/2020 06:10:55 T-wave abnormality no longer present Electronically Signed On 03-16-2021 18:22:14 CDT by Aime Calle M.D. [id number]
--- NOTE | 2021-03-16 15:37 | ED_ITS ---
HPI - General Adult General: Chief complaint: General Medical Stated complaint: type 1 diabetic, N/V, Cant get sugar to level out Time Seen by Provider: 03/16/21 15:31 History of Present Illness: HPI narrative: 26-year-old male history of insulin-dependent diabetes mellitus with dreamlike poor compliance. Has been hospitalized multiple times for DKA. Last 2 days he has had nausea vomiting he has not been taking his insulin regularly however he does check his blood sugar it simply reads high. Failure to the point where he is so weak and lethargic his family brought him in. Onset (ago): day(s) (2) Pain Consistency: constant Exacerbating factors: none Associated symptoms: Reports confusion, diaphoresis, decreased appetite, headache(s), malaise, nausea and vomiting; Deny chest pain, cough, dyspnea, fevers/chills, rash, palpitations, seizures, short of breath, syncope or weakness Treatments prior to arrival: none Review of Systems Const: Reports: malaise and diaphoresis ENMT: Denies: throat pain, ear or mastoid pain, nasal discharge or nasal congestion Card: Denies: chest pain, palpitations or syncope Resp: Denies: dyspnea GI: Reports: nausea and vomiting : Denies: flank pain, dysuria, urinary frequency or urinary urgency Skin/Breast: Denies: rash Neuro: Reports: headache(s) and confusion PFSH ED PFSH: Medical History Diabetes type 1, uncontrolled History of DKA Surgical History No history of previous surgery none known Family History Other Family history unknown Social History Smoking and tobacco status: current every day smoker cigarettes Packs smoked per day: 1 Alcohol intake: never Current occupational status: employed Physical Exam Const: ORIENTATION/CONSCIOUSNESS: Yes awake HENMT: COMMON NORMALS: normocephalic, atraumatic, hearing grossly normal bilaterally, external ears normal, EAC's normal, TM's normal bilaterally, Normal nasal mucous membranes and turbinates present, moist oral mucous membranes and oropharynx normal HEAD & SCALP: normocephalic and atraumatic NOSE: Normal nasal mucous membranes and turbinates present EXTERNAL EAR: Yes external ears normal EXTERNAL AUDITORY CANAL: EAC's normal TYMPANIC MEMBRANE: TM's normal bilaterally Neck/C-Spine: COMMON NORMALS: no JVD Resp: EFFORT & INSPECTION: Yes tachypneic Cardio: COMMON NORMALS: no JVD RATE: tachycardic GI: COMMON NORMALS: Soft to palpation and No hepatosplenomegaly present AUSCULTATION: Yes normoactive bowel sounds PALPATION: Yes Soft to palpation, No Tenderness to palpation present (GI), No Guarding due to palpation present (GI) and Yes No hepatosplenomegaly present Extremity: COMMON NORMALS: normal to inspection, capillary refill normal, no clubbing, cyanosis or edema, no calf tenderness and no pedal edema Skin: COMMON NORMALS: no rashes or lesions noted GENERAL SKIN EXAM: no rashes or lesions noted Course Vital Signs: Vital signs: Vital Signs Temperature 97.4 F L 03/16/21 15:36 Pulse Rate 116 H 03/16/21 23:11 Respiratory Rate 16 03/16/21 23:11 Blood Pressure 118/70 03/16/21 23:11 Pulse Oximetry 96 03/16/21 23:11 MDM - General Adult MDM Narrative: Medical decision making narrative: Patient critically ill on arrival initial resuscitation with large amounts of fluids bicarb his potassium was 5 7 however we were giving him large volumes of IV fluids Lab Data: Labs: Lab Results 03/16/21 03/16/21 03/16/21 Range/Units 15:30 15:37 15:37 WBC 19.2 H (4.0-10.0) 10^3/ uL RBC 5.80 H (4.1-5.3) 10^6/u L Hgb 17.6 H (11.7-16.6) g/dL Hct 56.1 H (42.0-52.0) % MCV 96.7 H (80-94) fL MCH 30.3 (28.0-34.0) pg MCHC 31.4 (30.0-36.0) g/dL RDW 13.2 (12.1-15.1) % Plt Count 411 H (130-400) 10^3/c mm MPV 11.6 H (7.4-10.4) fL Neut % (Auto) 83.1 % Lymph % (Auto) 12.5 % Burt % (Auto) 2.2 % Eos % (Auto) 0.0 % Baso % (Auto) 0.6 % Neut # (Auto) 15.92 H (1.8-7.7) 10^3/u L Lymph # (Auto) 2.4 (0.8-4.8) 10^3/u L Burt # (Auto) 0.4 (0.2-0.9) 10^3/u L Eos # (Auto) 0.0 (0.0-0.8) 10^3/u L Baso # (Auto) 0.1 (0.0-0.1) 10^3/u L Nucleated RBC % (a uto) 0 % Nucleated RBCs # 0.0 /100WBC Specimen Type Sample Site ABG pH (7.35-7.45) ABG pCO2 (35-45) mmHg ABG pO2 (80.0-100.0) mmH g ABG HCO3 (22-26) mmol/L ABG O2 Saturation ABG Base Excess (-2.0-2.0) mmol/ L [place]reket Test A-a O2 Gradient Hematocrit (42-52) % Hgb O2 Saturation (95-100) % Carboxyhemoglobin (0.4-20.1) %THgb Methemoglobin (0.4-1.5) % Total Hemoglobin (14-18) g/dL Ionized Calcium (1.1-1.4) mmol/L O2 Delivery Device FiO2 % Equipment Service Technician ID Sodium (136-145) mmol/L Potassium (3.5-5.1) mmol/L Chloride (98-107) mmol/L Carbon Dioxide (22-29) mmol/L Anion Gap (5-19) BUN (6-20) mg/dL Creatinine (0.7-1.2) mg/dL GFR Calculation (90-130) mL/min Glucose (65-115) mg/dL POC Glucose > 600 H* (70-110) mg/dL Calculated Osmolal ity (285-295) mOsm/k g Lactic Acid Cancelled Calcium (8.5-10.5) mg/dL Phosphorus (2.5-4.5) mg/dL Magnesium (1.7-2.3) mg/dL Iron (59-158) ug/dL TIBC mcg/dl % Saturation (20-50) % Unsat Iron Binding (112-347) ug/dL Total Bilirubin (0.15-1.2) mg/dL AST (0-40) U/L ALT (0-41) U/L Alkaline Phosphata se (40-130) IU/L Creatine Kinase (39-308) U/L Troponin T Baselin e (0-15) ng/L Troponin T 120 Min sycuan (0-15) ng/L Delta Troponin T (0-10) ABS# Total Protein (6.6-8.7) g/dL Albumin (3.5-5.2) g/dL Globulin (1.3-4.6) g/dL Lipase (13-60) U/L Procalcitonin (0-0.5) ng/mL TSH (0.27-4.20) uIU/ mL Serum Ketones (Negative) 03/16/21 03/16/21 03/16/21 Range/Units 15:37 15:37 15:37 WBC (4.0-10.0) 10^3/ uL RBC (4.1-5.3) 10^6/u L Hgb (11.7-16.6) g/dL Hct (42.0-52.0) % MCV (80-94) fL MCH (28.0-34.0) pg MCHC (30.0-36.0) g/dL RDW (12.1-15.1) % Plt Count (130-400) 10^3/c mm MPV (7.4-10.4) fL Neut % (Auto) % Lymph % (Auto) % Burt % (Auto) % Eos % (Auto) % Baso % (Auto) % Neut # (Auto) (1.8-7.7) 10^3/u L Lymph # (Auto) (0.8-4.8) 10^3/u L Burt # (Auto) (0.2-0.9) 10^3/u L Eos # (Auto) (0.0-0.8) 10^3/u L Baso # (Auto) (0.0-0.1) 10^3/u L Nucleated RBC % (a uto) % Nucleated RBCs # /100WBC Specimen Type Sample Site ABG pH (7.35-7.45) ABG pCO2 (35-45) mmHg ABG pO2 (80.0-100.0) mmH g ABG HCO3 (22-26) mmol/L ABG O2 Saturation ABG Base Excess (-2.0-2.0) mmol/ L [place] Test A-a O2 Gradient Hematocrit (42-52) % Hgb O2 Saturation (95-100) % Carboxyhemoglobin (0.4-20.1) %THgb Methemoglobin (0.4-1.5) % Total Hemoglobin (14-18) g/dL Ionized Calcium (1.1-1.4) mmol/L O2 Delivery Device FiO2 % Equipment Service Technician ID Sodium 123 L (136-145) mmol/L Potassium 5.7 H (3.5-5.1) mmol/L Chloride 74 L (98-107) mmol/L Carbon Dioxide 6 L* (22-29) mmol/L Anion Gap 48.7 H (5-19) BUN 27 H (6-20) mg/dL Creatinine 1.5 H (0.7-1.2) mg/dL GFR Calculation 57.5 L (90-130) mL/min Glucose 935 H* (65-115) mg/dL POC Glucose (70-110) mg/dL Calculated Osmolal ity 308 H (285-295) mOsm/k g Lactic Acid Calcium 8.9 (8.5-10.5) mg/dL Phosphorus 9.1 H* (2.5-4.5) mg/dL Magnesium 2.6 H (1.7-2.3) mg/dL Iron (59-158) ug/dL TIBC mcg/dl % Saturation (20-50) % Unsat Iron Binding (112-347) ug/dL Total Bilirubin 0.6 (0.15-1.2) mg/dL AST 22 (0-40) U/L ALT 46 H (0-41) U/L Alkaline Phosphata se 152 H (40-130) IU/L Creatine Kinase 32 L (39-308) U/L Troponin T Baselin e 15 (0-15) ng/L Troponin T 120 Min sycuan (0-15) ng/L Delta Troponin T (0-10) ABS# Total Protein 7.0 (6.6-8.7) g/dL Albumin 4.5 (3.5-5.2) g/dL Globulin 2.5 (1.3-4.6) g/dL Lipase 11 L (13-60) U/L Procalcitonin (0-0.5) ng/mL TSH (0.27-4.20) uIU/ mL Serum Ketones Positive H (Negative) 03/16/21 03/16/21 03/16/21 Range/Units 15:37 15:37 15:48 WBC (4.0-10.0) 10^3/ uL RBC (4.1-5.3) 10^6/u L Hgb (11.7-16.6) g/dL Hct (42.0-52.0) % MCV (80-94) fL MCH (28.0-34.0) pg MCHC (30.0-36.0) g/dL RDW (12.1-15.1) % Plt Count (130-400) 10^3/c mm MPV (7.4-10.4) fL Neut % (Auto) % Lymph % (Auto) % Burt % (Auto) % Eos % (Auto) % Baso % (Auto) % Neut # (Auto) (1.8-7.7) 10^3/u L Lymph # (Auto) (0.8-4.8) 10^3/u L Burt # (Auto) (0.2-0.9) 10^3/u L Eos # (Auto) (0.0-0.8) 10^3/u L Baso # (Auto) (0.0-0.1) 10^3/u L Nucleated RBC % (a uto) % Nucleated RBCs # /100WBC Specimen Type Arterial Sample Site Brachial, left ABG pH 7.11 L* (7.35-7.45) ABG pCO2 12.3 L* (35-45) mmHg ABG pO2 133.0 H (80.0-100.0) mmH g ABG HCO3 3.9 L (22-26) mmol/L ABG O2 Saturation 98.4 ABG Base Excess -23.1 L (-2.0-2.0) mmol/ L [place] Test Pos A-a O2 Gradient Not Reportable Hematocrit 53.5 H (42-52) % Hgb O2 Saturation 96.8 (95-100) % Carboxyhemoglobin 0.7 (0.4-20.1) %THgb Methemoglobin 0.9 (0.4-1.5) % Total Hemoglobin 17.5 (14-18) g/dL Ionized Calcium 1.2 (1.1-1.4) mmol/L O2 Delivery Device Room air FiO2 21.0 % Equipment Service Technician ID Cak Sodium 125.0 L (136-145) mmol/L Potassium 5.5 H (3.5-5.1) mmol/L Chloride (98-107) mmol/L Carbon Dioxide (22-29) mmol/L Anion Gap (5-19) BUN (6-20) mg/dL Creatinine (0.7-1.2) mg/dL GFR Calculation (90-130) mL/min Glucose 913.0 H (65-115) mg/dL POC Glucose (70-110) mg/dL Calculated Osmolal ity (285-295) mOsm/k g Lactic Acid Calcium (8.5-10.5) mg/dL Phosphorus (2.5-4.5) mg/dL Magnesium (1.7-2.3) mg/dL Iron 206 H (59-158) ug/dL TIBC 340 mcg/dl % Saturation 60.5 H (20-50) % Unsat Iron Binding 134 (112-347) ug/dL Total Bilirubin (0.15-1.2) mg/dL AST (0-40) U/L ALT (0-41) U/L Alkaline Phosphata se (40-130) IU/L Creatine Kinase (39-308) U/L Troponin T Baselin e (0-15) ng/L Troponin T 120 Min sycuan (0-15) ng/L Delta Troponin T (0-10) ABS# Total Protein (6.6-8.7) g/dL Albumin (3.5-5.2) g/dL Globulin (1.3-4.6) g/dL Lipase (13-60) U/L Procalcitonin 0.27 (0-0.5) ng/mL TSH 0.17 L (0.27-4.20) uIU/ mL Serum Ketones (Negative) 06/03/21 06/03/21 06/03/21 Range/Units 16:49 17:06 17:50 WBC (4.0-10.0) 10^3/ uL RBC (4.1-5.3) 10^6/u L Hgb (11.7-16.6) g/dL Hct (42.0-52.0) % MCV (80-94) fL MCH (28.0-34.0) pg MCHC (30.0-36.0) g/dL RDW (12.1-15.1) % Plt Count (130-400) 10^3/c mm MPV (7.4-10.4) fL Neut % (Auto) % Lymph % (Auto) % Burt % (Auto) % Eos % (Auto) % Baso % (Auto) % Neut # (Auto) (1.8-7.7) 10^3/u L Lymph # (Auto) (0.8-4.8) 10^3/u L Burt # (Auto) (0.2-0.9) 10^3/u L Eos # (Auto) (0.0-0.8) 10^3/u L Baso # (Auto) (0.0-0.1) 10^3/u L Nucleated RBC % (a uto) % Nucleated RBCs # /100WBC Specimen Type Sample Site ABG pH (7.35-7.45) ABG pCO2 (35-45) mmHg ABG pO2 (80.0-100.0) mmH g ABG HCO3 (22-26) mmol/L ABG O2 Saturation ABG Base Excess (-2.0-2.0) mmol/ L Bereket Test A-a O2 Gradient Hematocrit (42-52) % Hgb O2 Saturation (95-100) % Carboxyhemoglobin (0.4-20.1) %THgb Methemoglobin (0.4-1.5) % Total Hemoglobin (14-18) g/dL Ionized Calcium (1.1-1.4) mmol/L O2 Delivery Device FiO2 % Equipment Service Technician ID Sodium (136-145) mmol/L Potassium (3.5-5.1) mmol/L Chloride (98-107) mmol/L Carbon Dioxide (22-29) mmol/L Anion Gap (5-19) BUN (6-20) mg/dL Creatinine (0.7-1.2) mg/dL GFR Calculation (90-130) mL/min Glucose (65-115) mg/dL POC Glucose > 600 H* (70-110) mg/dL Calculated Osmolal ity (285-295) mOsm/k g Lactic Acid 8.2 H* Calcium (8.5-10.5) mg/dL Phosphorus (2.5-4.5) mg/dL Magnesium (1.7-2.3) mg/dL Iron (59-158) ug/dL TIBC mcg/dl % Saturation (20-50) % Unsat Iron Binding (112-347) ug/dL Total Bilirubin (0.15-1.2) mg/dL AST (0-40) U/L ALT (0-41) U/L Alkaline Phosphata se (40-130) IU/L Creatine Kinase (39-308) U/L Troponin T Baselin e (0-15) ng/L Troponin T 120 Min sycuan 14.56 (0-15) ng/L Delta Troponin T -0.44 L (0-10) ABS# Total Protein (6.6-8.7) g/dL Albumin (3.5-5.2) g/dL Globulin (1.3-4.6) g/dL Lipase (13-60) U/L Procalcitonin (0-0.5) ng/mL TSH (0.27-4.20) uIU/ mL Serum Ketones (Negative) Critical Care Time Critical Care Time: Critical Care Time: Yes Total Critical Care Time: 45 Attestation: This case had a high probability of a clinically significant, sudden, or life threatening deterioration of this patient's condition which required my full and direct attention, intervention and personal management. Discharge Plan Discharge Patient Disposition: Admitted As Inpatient Admit Provider: Manisha De La Cruz Clinical Impression: DKA (diabetic ketoacidoses), Diabetes type 1, uncontrolled Coding Level of Care Code ED Casting Director for Bill[employer] Fwd Exam Comprehensive
[2021-03-16 15:44] LABS: Glucose Point of Care > 600 mg/dL (70-110)
[2021-03-16] MEDS: insulin regular-human 100 units/1 mL 10 UNIT IVP (15:51)
[2021-03-16] MEDS: ondansetron 2 mg/ML SDV 2 mL 4 MG IVP (15:51)
[2021-03-16] MEDS: sodium chloride 0.9% 1,000 ML 999 ML IV ×4 (15:52→18:42)
[2021-03-16 15:55] LABS: Basophils # 0.1 10^3/uL (0.0-0.1); Basophils % 0.6 %; Hematocrit 56.1 % (42.0-52.0); Hemoglobin 17.6 g/dL (11.7-16.6); Lymphocytes # 2.4 10^3/uL (0.8-4.8); Lymphocytes % 12.5 %; Mean Corpuscular HGB Conc 31.4 g/dL (30.0-36.0); Mean Corpuscular Hemoglobin 30.3 pg (28.0-34.0); Mean Corpuscular Volume 96.7 fL (80-94); Mean Platelet Volume 11.6 fL (7.4-10.4); Monocytes # 0.4 10^3/uL (0.2-0.9); Monocytes % 2.2 %; Neutrophils # 15.92 10^3/uL (1.8-7.7); Neutrophils % 83.1 %; Nucleated Red Blood Cells % 0 %; Platelet Count 411 10^3/cmm (130-400); Red Cell Distribution Width 13.2 % (12.1-15.1); White Blood Count 19.2 10^3/uL (4.0-10.0)
[2021-03-16 15:59] LABS: Arterial Blood Gas Hematocrit 53.5 % (42-52); Base Excess ABG -23.1 mmol/L (-2.0-2.0); Blood Gas Allen Test Pos; Blood Gas Operator Identificat CAK; Blood Gas Sample Site Brachial, left; Blood Gas Sample Type Arterial; Carboxyhemoglobin 0.7 %THgb (0.4-20.1); HCO3 ABG 3.9 mmol/L (22-26); HGB O2 Sat 96.8 % (95-100); Ionized Calcium Level - ABG 1.2 mmol/L (1.1-1.4); Methemoglobin 0.9 % (0.4-1.5); Oxygen Device ROOM AIR; Oxygen Saturation ABG 98.4; Potassium Level - ABG 5.5 mmol/L (3.5-5.0); Total Hemoglobin 17.5 g/dL (14-18)
[2021-03-16 16:00] LABS: ABG PCO2 12.3 mmHg (35-45); ABG PH Result 7.11 (7.35-7.45)
[2021-03-16 16:13] LABS: Albumin Level 4.5 g/dL (3.5-5.2); Aspartate Amino Transferase 22 U/L (0-40); Calcium 8.9 mg/dL (8.5-10.5); Globulin 2.5 g/dL (1.3-4.6); Total Bilirubin 0.6 mg/dL (0.15-1.2)
[2021-03-16 16:14] LABS: Troponin(5th) Baseline 15 ng/L (0-15)
[2021-03-16 16:19] LABS: Ketone (Acetest) Serum Positive (Negative)
[2021-03-16 16:27] LABS: Chloride 74 mmol/L (98-107); Potassium 5.7 mmol/L (3.5-5.1); Sodium 123 mmol/L (136-145)
[2021-03-16 16:29] LABS: Anion Gap 48.7 (5-19); Blood Urea Nitrogen 27 mg/dL (6-20); Carbon Dioxide 6 mmol/L (22-29); Glomerular Filtration Rate 57.5 mL/min (90-130)
[2021-03-16 16:30] LABS: Alanine Aminotransferase 46 U/L (0-41); Alkaline Phosphatase 152 IU/L (40-130); Creatine Phosphokinase 32 U/L (39-308); Glucose 935 mg/dL (65-115); Lipase 11 U/L (13-60); Magnesium 2.6 mg/dL (1.7-2.3); Osmolality Calculated 308 mOsm/kg (285-295); Phosphorus 9.1 mg/dL (2.5-4.5)
[2021-03-16] MEDS: lidocaine 1% 5 ML in potassium chloride premix 100 ML 25 ML IV (17:10)
[2021-03-16] MEDS: sodium bicarbonate 8.4% 1 mEq/mL 50mL Syr 100 MEQ IVP (17:10)
[2021-03-16] MEDS: insulin regular-human 250 UNIT in sodium chloride 0.9% 250 ML IV (17:20)
--- NOTE | 2021-03-16 17:32 | ECG_ITS ---
[facility] Test Date: 2021-03-16 Pat Name: Jean Miller Department: Room: [facility] Gender: Male Crystal Slicer: : 1995 Requested By: Quincy Haley Order Number: [id number] Remy MD: Aime Calle M.D. Measurements Intervals [place] Rate: 105 P: 87 WI: 141 QRS: 72 QRSD: 82 T: 83 QT: 346 QTc: 458 Interpretive Statements SINUS TACHYCARDIA Compared to ECG 03/16/2021 16:38:41 No significant changes Electronically Signed On 03-16-2021 20:29:28 CDT by Aime Calle M.D. [email or web address] medical [email or web address] [id number]
[2021-03-16 17:40] LABS: Lactic Sepsis W/Reflex 8.2 mmol/L (0.5-2.2)
--- NOTE | 2021-03-16 18:23 | P.HP_ITS ---
Providers/Chief Complaint Primary Care Provider: Peace Brothers MD Chief Complaint: type 1 diabetic, N/V, Cant get sugar to level out History of Present Illness Jean Miller is a 26 year old male with history of type 1 diabetes mellitus recurrent admissions with DKA last in June 2020 on insulin 25 units Lantus and premeals as per insulin sliding scale follows up with Dr. Jones presents to the ER today because of not feeling well, nausea, vomiting and abdominal discomfort. On presentation to the ER patient was found to be in DKA with blood sugars going up to more than thousands. Patient states her blood sugar levels at home are all over the place her lowest blood sugar in 90s and highest in 1400s. Patient is awaiting insulin pump from his endocrine's office. He states he thinks he forgot to take his Lantus yesterday. Denies any nausea, vomiting, headache, dizziness other than what he has had today. Denies any sick contact or known exposure to COVID-19. Review of Systems General: Reports: 10 or more systems reviewed and unremarkable except in HPI and below Const: Denies: fever(s), chills, body aches, change in appetite, change in weight, malaise, night sweats, diaphoresis, change in sleep pattern, daytime sleepiness or snoring Eyes: Denies: change in vision, blurry vision, photophobia, eye discomfort or eye discharge ENMT: Denies: throat pain, enlarged tonsils, hoarseness, mouth pain, oral sores, dry mouth, tinnitus, nasal congestion or post nasal drip Card: Denies: chest pain, palpitations, irregular heart rhythm, edema, swelling of feet/ankles, lightheadedness, syncope, pre-syncope, dyspnea on exertion, orthopnea, leg pain with exertion or acrocyanosis Resp: Denies: dyspnea, productive cough, non-productive cough, wheezing, stridor, pain on inspiration, change in phlegm color, hemoptysis or chest congestion GI: Denies: abdominal pain, nausea, vomiting, hematemesis, coffee ground emesis, dysphagia, heartburn, diarrhea, constipation, bloating, GI cramping, rickie nge in bowel habits, pain on defecation, hematochezia or melena : Denies: flank pain, difficulty urinating, dysuria, urinary frequency, urinary urgency, urinary hesitancy, urinary dribbling, difficulty starting urination, change in urine stream, nocturia or hematuria Musc: Denies: neck pain, back pain, extremity pain, joint pain, joint swelling, joint redness, joint stiffness or limited range of motion Neuro: Denies: headache(s), numbness in extremities, weakness in extremities, sensory changes, lack of coordination, difficulty walking, frequent falls, dizziness, vertigo, confusion, Slurred speech present, difficulty communicating thoughts or seizure-like activity Psych: Denies: anxiety, depression, mood swings, panic attacks, hopelessness or irritability Endo: Denies: polyuria, polydipsia, tired all the time, cold intolerance, excessive sweating, flushing or heat intolerance Basim/Lymph: Denies: easy bruising or easy bleeding All/Imm: Denies: tongue swelling, facial swelling or acute wheezing Medications/Allergies Home Medications Medication Instructions Recorded Confirmed Last Taken Type ibuprofen [IBU] 800 mg PO TID PRN #30 tab 11/04/20 03/16/21 Unknown Rx insulin detemir U-100 100 unit/mL 25 unit SUBCUT DAILY ml 12/08/20 03/16/21 03/15/21 History (3 mL) subcutaneous pen insulin regular human 100 unit/mL 10 unit .ROUTE TID ml 12/08/20 03/16/21 03/15/21 History (3 mL) subcutaneous pen Allergies Allergy/AdvReac Type Severity Reaction Status Date / Time No Known Allergies Allergy Verified 12/25/20 19:47 PFSH Acute PFSH: Medical History Diabetes type 1, uncontrolled History of DKA Surgical History No history of previous surgery none known Family History Other Family history unknown Social History Smoking and tobacco status: current every day smoker cigarettes Packs smoked per day: 1 Alcohol intake: never Current occupational status: employed Vitals/I&O/Wt Last Vital Signs Temp 97.4 F L 03/16/21 15:36 Pulse 134 H 06/03/21 15:36 Resp 22 H 03/16/21 15:36 BP 148/103 03/16/21 15:36 Pulse Ox 100 03/16/21 15:36 03/16/21 03/16/21 03/16/21 06:59 14:59 22:59 Intake Total 3000 / 3000 Balance 3000 / 3000 Weight last 48 hrs Weight 63.503 kg Physical Exam Narrative: EXAM NARRATIVE: General: No acute distress, AO x3, drowsy but answers appropriately, dehydrated HEENT: PERRLA, pupils bilaterally equal and reactive Chest: Normal vesicular breath sounds, no added sounds, equal good air entry bilaterally CVS: S1-S2 regular, no murmurs, no tachycardia, no gallops, no rubs Abdomen: Soft, nontender, no organomegaly, bowel sounds present Neuro: No focal deficits, no facial deformity, AO x3, power 5/5 in all limbs Data : 03/16/21 15:37 03/16/21 15:37 Micro: Microbiology 03/16/21 16:49 Blood Culture - Preliminary Blood SPECIMEN COLLECTED 03/16/21 15:37 Blood Culture - Preliminary Blood SPECIMEN COLLECTED A&P Assessment and plan (1) DKA (diabetic ketoacidoses): Status: Acute (2) Diabetes type 1, uncontrolled: Status: Chronic Qualifiers: Glycemic state: with hyperglycemia Qualified Code(s): E10.65 - Type 1 diabetes mellitus with hyperglycemia (3) High anion gap metabolic acidosis: Status: Acute (4) Hyponatremia: Status: Acute (5) Hyperkalemia: Status: Acute (6) MICHAEL (acute kidney injury): Status: Acute Additional A&P Information DKA: Start patient on insulin sliding scale as per DKA protocol. N.p.o. for now. We will start the insulin sliding scale and Lantus once the anion gap closes. Check BMP every 4 hours. Normal saline at 125 cc/h. Once potassium below 4 add 20 mEq Potassium. Once blood sugar below 250 and if anion gap still elevated switch to fluid to D5 NS at 25 cc/h. MICHAEL: Most likely from dehydration. Medical management done for nephrotoxic drugs. Fluid as above. Hyponatremia/hyperkalemia/iron gap metabolic acidosis: Most likely all from DKA. We will monitor BMP every 4 hours for now. Check urine Legionella, bacterial antigen, drug screen, thyroid panel, procalcitonin, HbA1c. Full code. NPO. Heparin 5000 every 12 for DVT prophylaxis. Admit to ICU. Attestations Medical Necessity Statement*: Admission for more than 2 midnights for management of DKA, high in antibiotic acidosis, hyponatremia, MICHAEL. Critical Care Time: The high probability of a clinically significant, sudden or life threatening deterioration of the patient's [endocrine/renal/insulin drip] system(s) required my full and direct attention, intervention and personal management. The critical care time is as shown. This time is in addition to time spent performing any reported procedures but includes the following: [x] Data and vital sign review and interpretation [x] Patient assessment, examination and intervention [x] Documentation [x] Medication orders and management Critical Care Time (min): 90 Coding Level of Care Code Acute Database Designer for [facility] Fwd Diagnoses DKA (diabetic ketoacidoses) E11.10 Diabetes type 1, uncontrolled E10.65 Glycemic state: with hyperglycemia High anion gap metabolic acidosis E87.2 Hyponatremia E87.1 Hyperkalemia E87.5 MICHAEL (acute kidney injury) N17.9
[2021-03-16 18:40] LABS: Reflex Lactate Order REFLEX LACTIC ORDERD
[2021-03-16 18:49] LABS: Troponin 5 2HR 14.56 ng/L (0-15); Troponin 5 2HR Delta -0.44 ABS# (0-10)
[2021-03-16 18:51] LABS: Iron 206 ug/dL (59-158); Percent Saturation 60.5 % (20-50); Total Iron Binding Capacity 340 mcg/dl; Unsaturated Iron Binding 134 ug/dL (112-347)
[2021-03-16 18:58] LABS: Procalcitonin 0.27 ng/mL (0-0.5)
[2021-03-16 18:59] LABS: Thyroid Stimulating Hormone 0.17 uIU/mL (0.27-4.20)
[2021-03-16 19:10] LABS: Add Urine Microscopic? NO; Charge for UA Resulting for Rev
[2021-03-16 19:15] LABS: Bilirubin Urine Neg (Negative); Blood Urine Neg (Negative); Glucose Urine UA 4+ (Normal); Ketones Urine 3+ (Negative); Leukocyte Esterase Urine Negative (Negative); Nitrate Urine Negative (Negative); Protein Urine Neg (Negative); Urine Appearance Clear (CLEAR); Urine Color Straw (Yellow); Urobilinogen Urine Norm (Negative); pH Urine 5 (5-7)
[2021-03-16 19:19] LABS: Glucose Point of Care > 600 mg/dL (70-110)
[2021-03-16 19:19] LABS: Glucose Point of Care 304 mg/dL (70-110)
[2021-03-16 19:37] LABS: Blood Urea Nitrogen 24 mg/dL (6-20); Calcium 7.4 mg/dL (8.5-10.5); Carbon Dioxide 12 mmol/L (22-29); Chloride 97 mmol/L (98-107); Glomerular Filtration Rate 103.7 mL/min (90-130); Glucose 335 mg/dL (65-115); Osmolality Calculated 297 mOsm/kg (285-295); Sodium 135 mmol/L (136-145)
[2021-03-16 19:40] LABS: Anion Gap 30.6 (5-19); Potassium 4.6 mmol/L (3.5-5.1)
[2021-03-16] MEDS: dextrose 5 % 500 ML 100 ML IV (19:40)
[2021-03-16 20:04] LABS: Amphetamines Screen Urine Negative (Negative); Barbiturates Screen Urine Negative (Negative); Benzodiazepines Screen Urine Negative (Negative); Cocaine Screen Urine Negative (Negative); Opiate Screen Urine Negative (Negative); PCP Screen Urine Negative (Negative); THC Screen Urine Negative (Negative)
[2021-03-16 20:15] LABS: Lactic Acid level (Lactate) 2.3 mmol/L (0.5-2.2)
[2021-03-16 20:57] LABS: Glucose Point of Care 282 mg/dL (70-110)
[2021-03-16] MEDS: heparin 5,000 unit/mL INJ 1 mL 5000 UNIT SUBCUT (21:59)
[2021-03-16] MEDS: famotidine 20 mg/2 mL INJ IVP (21:59)
[2021-03-16 22:15] LABS: Troponin 5 6HR 12.84 ng/L (0-15)
[2021-03-16 22:17] LABS: Troponin 5 6HR Delta -2.16 ng/L (0-12)
--- NOTE | 2021-03-17 01:39 | PC.NURSE ---
LEFT AMA Patient received from ED at 2231 on 03/16. Insulin gtt at 5 units/hour, and D5 running at 100 mL/hour. Insulin gtt titrated to 4.2 units per hour per drip protocol. Alert and oriented x 4. Patient asked nurse if he could eat, nurse explained diet and how it would affect blood sugar and labs while on insulin drip. Nurse educated that physicians orders were nothing by mouth at this time and that we would reassess with labs throughout the morning. Patient states Well if I cant eat then can I have some against medical advice papers to sign so I can leave. Nurse attempted to explain to patient importance of staying and remaining on insulin drip to ensure he was better before he left. Patient still demanded AMA papers. Nurse attempted to bargain with patient since next BMP to be drawn at 0000 if he would stay until those resulted to see if he could eat and still receive care, patient states No, I'll just take my papers. Dr. Mosley called and came to bedside. Nurse asked patient if we allowed him to eat if he would stay, patient states, Probably. Dr. Mosley educated on importance of not eating while on insulin drip and patient still wanting to leave. Dr. Mosley offered patient a snack to see how he would tolerate but patient wants a full meal. Dr. Mosley asked if he gave him a sandwich if he would stay and patient states, I'm not going to stay just because you are offering me a sandwich. Patients IV's taken out if bilateral AC spaces, assisted into his shoes and ensured he had his cellphone and escorted to ER entrance where he said his family was coming to pick him up.
--- NOTE | 2021-03-17 03:30 | PC.NURSE ---
ADMISSION 2230 / Admission unable to be done due to patient leaving AMA.
[2021-03-17 06:10] LABS: Glucose Point of Care 201 mg/dL (70-110)
--- NOTE | 2021-03-17 15:09 | PC.RESP ---
Smoking Cessation information sent to patient.
--- NOTE | 2021-03-17 18:58 | PM.DCS ---
Discharge Providers Date of Admission: 03/16/21 17:56 Date of Discharge: March 17, 2021 Attending Provider at Admission: Manisha De La Cruz MD Attending Provider at Discharge: Jens River MD Primary Care Provider: Peace Brothers MD Diagnoses at Discharge Discharge Diagnosis (1) DKA (diabetic ketoacidoses): Status: Acute (2) Diabetes type 1, uncontrolled: Status: Chronic Permanent problem details: History of DKA (3) High anion gap metabolic acidosis: Status: Acute (4) Hyponatremia: Status: Acute (5) Hyperkalemia: Status: Acute (6) MICHAEL (acute kidney injury): Status: Acute Reason for Visit Reason for Visit: type 1 diabetic, N/V, Cant get sugar to level out Hospital Course Hospital Course Jean Miller is a 26 year old male with history of type 1 diabetes mellitus recurrent admissions with DKA last in June 2020 on insulin 25 units Lantus and premeals as per insulin sliding scale follows up with Dr. Jones presents to the ER today because of not feeling well, nausea, vomiting and abdominal discomfort. On presentation to the ER patient was found to be in DKA with blood sugars going up to more than thousands. Patient states her blood sugar levels at home are all over the place her lowest blood sugar in 90s and highest in 1400s. Patient is awaiting insulin pump from his endocrine's office. He states he thinks he forgot to take his Lantus yesterday. Denies any nausea, vomiting, headache, dizziness other than what he has had today. Denies any sick contact or known exposure to COVID-19. Patient will be to the ICU for management of metabolic acidosis because of DKA. Overnight patient left AMA without being seen even after me been explained multiple times by the nurses and physician market intelligence consultant for the need of patient to be on insulin drip. Physical Exam Narrative: EXAM NARRATIVE: Left before being seen. Discharge Data Data Completed and Pending: Pending at discharge Category Date Time Status Blood Culture Sta t Lab 03/16/21 16:49 Results Labs from last 24 hours 03/16/21 03/16/21 03/16/21 22:43 21:53 20:53 Sodium Potassium Chloride Carbon Dioxide Anion Gap BUN Creatinine GFR Calculation Glucose POC Glucose 201 H 282 H Calculated Osmolal ity Lactic Acid (Sepsi s) Calcium Troponin T Hi Sens 6Hr 12.84 Troponin T Hi Sens 6Hr Delta -2.16 L Procalcitonin TSH Urine Color Urine Appearance Urine pH Ur Specific Gravit y Urine Protein Urine Glucose (UA) Urine Ketones Urine Blood Urine Nitrate Urine Bilirubin Urine Urobilinogen Ur Leukocyte Angela ase Urine Opiates Scre en Ur Barbiturates Sc reen Ur Phencyclidine S crn Ur Amphetamines Sc reen U Benzodiazepines Scrn Urine Cocaine Scre en U Marijuana (THC) Screen 03/16/21 03/16/21 03/16/21 19:34 19:15 19:01 Sodium 135 L Potassium 4.6 Chloride 97 L Carbon Dioxide 12 L Anion Gap 30.6 H BUN 24 H Creatinine 0.9 GFR Calculation 103.7 Glucose 335 H POC Glucose 304 H Calculated Osmolal ity 297 H Lactic Acid (Sepsi s) 2.3 H Calcium 7.4 L Troponin T Hi Sens 6Hr Troponin T Hi Sens 6Hr Delta Procalcitonin TSH Urine Color Urine Appearance Urine pH Ur Specific Gravit y Urine Protein Urine Glucose (UA) Urine Ketones Urine Blood Urine Nitrate Urine Bilirubin Urine Urobilinogen Ur Leukocyte Angela ase Urine Opiates Scre en Ur Barbiturates Sc reen Ur Phencyclidine S crn Ur Amphetamines Sc reen U Benzodiazepines Scrn Urine Cocaine Scre en U Marijuana (THC) Screen 03/16/21 03/16/21 03/16/21 19:00 19:00 17:06 Sodium Potassium Chloride Carbon Dioxide Anion Gap BUN Creatinine GFR Calculation Glucose POC Glucose > 600 H* Calculated Osmolal ity Lactic Acid (Sepsi s) Calcium Troponin T Hi Sens 6Hr Troponin T Hi Sens 6Hr Delta Procalcitonin TSH Urine Color Straw Urine Appearance Clear Urine pH 5 Ur Specific Gravit y 1.020 Urine Protein Neg Urine Glucose (UA) 4+ H Urine Ketones 3+ H Urine Blood Neg Urine Nitrate Negative Urine Bilirubin Neg Urine Urobilinogen Norm Ur Leukocyte Angela ase Negative Urine Opiates Scre en Negative Ur Barbiturates Sc reen Negative Ur Phencyclidine S crn Negative Ur Amphetamines Sc reen Negative U Benzodiazepines Scrn Negative Urine Cocaine Scre en Negative U Marijuana (THC) Screen Negative 03/16/21 03/16/21 15:37 15:37 Sodium Potassium Chloride Carbon Dioxide Anion Gap BUN Creatinine GFR Calculation Glucose POC Glucose Calculated Osmolal ity Lactic Acid (Sepsi s) Calcium Troponin T Hi Sens 6Hr Troponin T Hi Sens 6Hr Delta Procalcitonin 0.27 TSH 0.17 L Urine Color Urine Appearance Urine pH Ur Specific Gravit y Urine Protein Urine Glucose (UA) Urine Ketones Urine Blood Urine Nitrate Urine Bilirubin Urine Urobilinogen Ur Leukocyte Angela ase Urine Opiates Scre en Ur Barbiturates Sc reen Ur Phencyclidine S crn Ur Amphetamines Sc reen U Benzodiazepines Scrn Urine Cocaine Scre en U Marijuana (THC) Screen Vitals: Last Vital Signs Temp 97.4 F L 03/16/21 15:36 Pulse 116 H 03/16/21 23:11 Resp 16 03/16/21 23:11 BP 118/70 03/16/21 23:11 Pulse Ox 96 03/16/21 23:11 Discharge Plan Discharge Patient Disposition: Left Against Medical Advice Prescriptions: No Action Levemir FlexTouch U-100 Insuln 100 unit/mL (3 mL) insulin pen 25 unit SUBCUT DAILY RF: 0 Novolin R Flexpen 100 unit/mL (3 mL) insulin pen 10 unit .ROUTE TID RF: 0 ibuprofen [IBU] 800 mg tablet 800 mg PO TID PRN (Reason: pain) Qty: 30 RF: 0 Referrals: Peace Brothers MD [Primary Care Provider] - Patient Instructions: Opioid Safety Discharge Attestations Time Spent in Discharge Care*: less than 30 min Quality Metrics Clinical Quality Measures During this hospital stay, did patient experience: None Coding Level of Care Code Acute g FW DC note Diagnoses DKA (diabetic ketoacidoses) E11.10 Diabetes type 1, uncontrolled E10.65 High anion gap metabolic acidosis E87.2 Hyponatremia E87.1 Hyperkalemia E87.5 MICHAEL (acute kidney injury) N17.9
== END 2021-03-16 23:00 | disposition left against medical advice (07) | DRG 638 ==
LOC: ER 17:46 → ICU 18:49
PROVIDERS: Admitting Provider Internal Medicine; Emergency Provider Family Medicine; PCP Family Medicine; Visit Provider Student in an Organized Health Care Education/Training Program
DX: E10.10 Type 1 diabetes mellitus with ketoacidosis without coma (principal); E87.1 Hypo-osmolality and hyponatremia; E87.2 Acidosis; N17.9 Acute kidney failure, unspecified; F17.210 Nicotine dependence, cigarettes, uncomplicated; E87.5 Hyperkalemia; E86.0 Dehydration; Z53.29 Procedure and treatment not carried out because of patient's decision for other reasons
CPT/HCPCS: 36415; 36416; 36600; 80048; 80051; 80053; 80306; 81003; 82009; 82330; 82550; 82805; 82962; 83540; 83550; 83605; 83690; 83735; 84100; 84145; 84443; 84484; 85025; 86403; 87040; 87449; 93005; 94664; 96365; 96366; 96372; 96375; 99285; J1644; J1815; J2405; J3480; J3490; J7030; J7050

== ENCOUNTER 2021-05-10 05:52 | Emergency (ER) | payer BC, SELFPAY ==
[2021-05-10 05:58] VITALS: BP 130/93; PULSE 104; RESP 18; TEMP 36.7; O2SAT 98
--- NOTE | 2021-05-10 07:17 | ED_ITS ---
HPI - Wound/Laceration General: Chief Complaint: Wound/Laceration Stated Complaint: Cut Left Thumb Time Seen by Provider: 05/10/21 06:35 Source: patient Mode of arrival: ambulatory Limitations: no limitations History of Present Illness: HPI narrative: Patient is a 26-year-old male who presents to ED today with a complaint of a left thumb laceration that he sustained after using a razor blade to cut a zip tie approximately 2 hours ago. Onset (ago): hour(s) Extremity Location: Left: hand (L thumb) Place: home Patient tetanus UTD: No Context: accidental Associated symptoms: Reports no associated symptoms Review of Systems Musc: Reports: extremity pain (L thumb) Skin/Breast: Reports: other (laceration L thumb) Neuro: Denies: numbness in extremities or sensory changes PFSH ED PFSH: Medical History Diabetes type 1, uncontrolled History of DKA Surgical History No history of previous surgery none known Family History Other Family history unknown Social History Smoking and tobacco status: current every day smoker cigarettes Packs smoked per day: 1 Alcohol intake: never Current occupational status: employed Physical Exam Const: COMMON NORMALS: no acute distress, average body habitus, patient oriented x3, no limitations, healthy appearing, alert and well nourished Extremity: GENERAL: Yes normal exam except as noted OTHER: L thumb has a 1.5cm very superficial laceration to ulnar dorsal surface; full ROM against resistance; sensory intact Neuro: COMMON NORMALS: patient oriented x3, moves all extremities, no focal motor deficits and no sensory deficits noted SENSORIUM/ORIENTATION: Yes alert Skin: NARRATIVE SKIN EXAM: see extremity for pertinent skin findings Course Vital Signs: Vital signs: Vital Signs Temperature 98.2 F 05/10/21 07:19 Pulse Rate 103 H 05/10/21 07:19 Respiratory Rate 16 05/10/21 07:19 Blood Pressure 136/103 05/10/21 07:19 Pulse Oximetry 98 05/10/21 07:19 MDM - Wound/Laceration MDM Narrative: Medical decision making narrative: wound copiously irrigated and repaired with skin adhesive as he did not want sutures; tetanus updated Discharge Plan Discharge Patient Disposition: Home Clinical Impression: Laceration of left thumb Qualifiers: Encounter type: initial encounter Damage to nail status: without damage Foreign body presence: without foreign body Qualified Code(s): S61.012A - Laceration without foreign body of left thumb without damage to nail, initial encounter Condition: Stable Prescriptions: No Action Levemir FlexTouch U-100 Insuln 100 unit/mL (3 mL) insulin pen 25 unit SUBCUT DAILY RF: 0 Novolin R Flexpen 100 unit/mL (3 mL) insulin pen 10 unit .ROUTE TID RF: 0 ibuprofen [IBU] 800 mg tablet 800 mg PO TID PRN (Reason: pain) Qty: 30 RF: 0 Discharge Orders: Discharge ED (Routine); Ordered 05/10/21 Ordered By: Daisy Cruz Referrals: Peace Brothers MD [Primary Care Provider] - Patient Instructions: Skin Adhesive Care (ED) Activity Restrictions/Additional Instructions: Keep wound/laceration clean with warm soap and water twice daily. Monitor for signs of infection such as redness, swelling, increased pain, or drainage. Please seek medical re-evaluation if these occur. If you received sutures today these will need to be removed (unless you were told by the provider that they are absorbable). The provider should have discussed with you the length of time until removal. You may return to the emergency department for this service. If your wound was closed with Steri-Strips or glue/adhesive these will fall off within the next week or so. Coding Level of Care Code ED Branch Or Department Chief Librarian for Jazmín Agosto
[2021-05-10 07:19] VITALS: BP 136/103; PULSE 103; RESP 16; TEMP 36.8; O2SAT 98
[2021-05-10] MEDS: tetanus-diphtheria tox (adult) 0.5 mL SDV IM (07:38)
== END 2021-05-10 07:41 | disposition home or self-care (01) ==
PROVIDERS: Emergency Provider Physician Assistant; PCP Family Medicine
DX: S61.012A Laceration without foreign body of left thumb without damage to nail, initial encounter (principal); F17.210 Nicotine dependence, cigarettes, uncomplicated; W26.8XXA Contact with other sharp object(s), not elsewhere classified, initial encounter
CPT/HCPCS: 90714; 96372; 99282

== ENCOUNTER 2021-07-03 12:17 | Inpatient (IN) | payer BC, MEDICAID, SELFPAY ==
[2021-07-03] VITALS (54 sets, daily range): BP systolic 93–156; BP diastolic 64–96; PULSE 85–114; RESP 10–25; TEMP 36.7; O2SAT 95–100
[2021-07-03] MEDS: sodium chloride 0.9% 1,000 ML 999 ML IV ×2 (12:48→13:07)
[2021-07-03 12:49] LABS: Glucose Point of Care > 600 mg/dL (70-110)
--- NOTE | 2021-07-03 12:49 | ED_ITS ---
HPI - General Adult General: Chief complaint: General Medical Stated complaint: ACHY ALL OVER TODAY,GEN MALAISE,POSS DKA 1 DAY AGO Time Seen by Provider: 07/03/21 12:46 History of Present Illness: HPI narrative: This patient is a 26-year-old male who presents to the emergency department complaint of nausea vomiting believes that he is in DKA. Patient was diagnosed with insulin-dependent diabetes at the age of 21. Patient states he has had numerous issues of the same. Patient states he just feels like he is sick at his stomach. Last glucose reading was high at the bedside. Will do medical evaluation treat as needed Associated symptoms: Reports nausea and vomiting; Deny chest pain, dyspnea, headache(s), rash or palpitations Review of Systems General: Reports: 10 or more systems reviewed and unremarkable except in HPI and below Const: Denies: fever(s), chills, body aches or fatigue Eyes: Denies: change in vision or blurry vision ENMT: Denies: throat pain, hoarseness or mouth pain Card: Denies: chest pain, palpitations, irregular heart rhythm, edema, swelling of feet/ankles or lightheadedness Resp: Denies: dyspnea, productive cough, non-productive cough, wheezing or pain on inspiration GI: Reports: nausea and vomiting; Denies: abdominal pain : Denies: flank pain, dysuria, urinary frequency, urinary urgency or urinary hesitancy Musc: Denies: neck pain, back pain, extremity pain, extremity swelling, joint pain, joint swelling, joint redness, joint warmth or limited range of motion Skin/Breast: Denies: rash, pruritus, erythema or skin tenderness Neuro: Denies: headache(s), numbness in extremities or weakness in extremities Psych: Denies: anxiety or depression PFS ED PFSH: Medical History Diabetes type 1, uncontrolled History of DKA Surgical History No history of previous surgery none known Family History Other Family history unknown Social History Smoking and tobacco status: current every day smoker cigarettes Packs smoked per day: 1 Alcohol intake: never Current occupational status: employed Physical Exam Const: COMMON NORMALS: no acute distress, average body habitus, patient oriented x3, no limitations, healthy appearing, alert and well nourished HENMT: COMMON NORMALS: normocephalic, atraumatic, hearing grossly normal bilaterally, external ears normal, EAC's normal, TM's normal bilaterally, Normal external nose present, Normal nasal mucous membranes and turbinates present, moist oral mucous membranes, oropharynx normal, dentition normal and gingiva normal HEAD & SCALP: normocephalic and atraumatic NOSE: Normal external nose present and Normal nasal mucous membranes and turbinates present EXTERNAL EAR: Yes external ears normal EXTERNAL AUDITORY CANAL: EAC's normal TYMPANIC MEMBRANE: TM's normal bilaterally Neck/C-Spine: COMMON NORMALS: full ROM, no lymphadenopathy, supple, no meningeal signs, no JVD, Thyroid normal and No carotid bruits THYROID: Thyroid normal Chest: COMMONS NORMALS: normal inspection of the chest, normal palpation of entire chest wall, normal inspection of the breasts and normal palpation of the breasts Breast/axilla inspection: Yes normal inspection of the breasts B REAST/AXILLA PALPATION: Yes normal palpation of the breasts Resp: COMMON NORMALS: normal respiratory effort, No retractions, No use of accessory muscles, clear to auscultation bilaterally and percussion normal AUSCULTATION: clear to auscultation bilaterally PERCUSSION: percussion normal Cardio: COMMON NORMALS: no JVD, regular rate, regular rhythm, S1 normal heart sound present, S2 normal heart sound present, No gallops present (Cardio), No clicks present (Cardio), No murmurs present (Cardio), No rub (Cardio) and Peripheral pulses 2+ throughout RATE: regular rate RHYTHM: regular rhythm HEART SOUNDS: S1 normal heart sound present and S2 normal heart sound present PERIPHERAL PULSES: Peripheral pulses 2+ throughout GI: COMMON NORMALS: Normal to inspection, nondistended, normoactive bowel sounds present, Soft to palpation, non-tender, No hepatosplenomegaly present, no masses and no bruits PALPATION: Yes Soft to palpation and Yes No hepatosplenomegaly present : COMMON NORMALS: Yes no CVA tenderness BLADDER/KIDNEY EXAM: Yes no CVA tenderness Back/Pelvis: COMMON NORMALS: no CVA tenderness, thoracic and lumbar spine normal to inspection, no thoracic nor lumbar tenderness, thoraco-lumbar ROM normal and straight leg raise negative bilaterally Extremity: COMMON NORMALS: normal to inspection, full ROM, capillary refill normal, no joint enlargement, no clubbing, cyanosis or edema, no calf tenderness and no pedal edema Neuro: COMMON NORMALS: patient oriented x3 SENSORIUM/ORIENTATION: Yes alert MENINGEAL SIGNS: Yes no meningeal signs Course Reevaluation(s): Reevaluation #1: Patient is feeling much improved glucose after insulin IV fluid boluses and insulin drip glucose is now 395. Will admit the patient for further evaluation and observation. Patient states understanding Time: 14:40 Consultations: Consultation #1: I spoke with hospitalist Dr. Chapman. He is agreed to admit the patient to the hospital. He will see patient write additional orders Time: 14:56 Vital Signs: Vital signs: Vital Signs Temperature 98.0 F 07/03/21 12:36 Pulse Rate 108 H 07/03/21 14:40 Respiratory Rate 12 07/03/21 14:40 Blood Pressure 93/64 07/03/21 14:40 Pulse Oximetry 98 07/03/21 14:40 MDM - General Adult MDM Narrative: Medical decision making narrative: This patient is a 26-year-old male who presents to the emergency department complaint of nausea vomiting believes that he is in DKA. Patient was diagnosed with insulin- dependent diabetes at the age of 21. Patient states he has had numerous issues of the same. Patient states he just feels like he is sick at his stomach. Last glucose reading was high at the bedside. Will do medical evaluation treat as needed Patient is feeling much improved glucose after insulin IV fluid boluses and insulin drip glucose is now 395. Will admit the patient for further evaluation and observation. Patient states understanding I spoke with hospitalist Dr. Chapman. He is agreed to admit the patient to the hospital. He will see patient write additional orders Medical Records: Attestation: I reviewed the patient's medical records. Lab Data: Attestation: I reviewed the patient's lab results. Labs: Lab Results 07/03/21 07/03/21 07/03/21 12:43 12:55 12:55 WBC 14.2 10^3/uL H 10 ^3/uL (4.0-10.0) RBC 5.44 10^6/uL H 10 ^6/uL (4.1-5.3) Hgb 16.6 g/dL g/dL (11.7-16.6) Hct 49.4 % % (42.0-52.0) MCV 90.8 fl fl (80-94) MCH 30.5 pg pg (28.0-34.0) MCHC 33.6 g/dL g/dL (30.0-36.0) RDW 12.3 % % (12.1-15.1) Plt Count 322 10^3/cmm 10^3 /cmm (130-400) MPV 11.6 fL H fL (7.4-10.4) Neut % (Auto) 83.6 % % Lymph % (Auto) 10.1 % % [place] % (Auto) 5.6 % % Eos % (Auto) 0.1 % % Baso % (Auto) 0.2 % % Neut # (Auto) 11.85 10^3/uL H 1 0^3/uL (1.8-7.7) Lymph # (Auto) 1.4 10^3/uL 10^3/ uL (0.8-4.8) [place] # (Auto) 0.8 10^3/uL 10^3/ uL (0.2-0.9) Eos # (Auto) 0.0 10^3/uL 10^3/ uL (0.0-0.8) Baso # (Auto) 0.0 10^3/uL 10^3/ uL (0.0-0.1) Nucleated RBC % (a uto) 0 % % Nucleated RBCs # 0.0 /100WBC /100W Specimen Type Sample Site ABG pH ABG pCO2 ABG pO2 ABG HCO3 ABG O2 Saturation ABG Base Excess Bereket Test A-a O2 Gradient Hematocrit Hgb O2 Saturation Carboxyhemoglobin Methemoglobin Total Hemoglobin Ionized Calcium O2 Delivery Device FiO2 Hardware Designer ID Sodium 120 mmol/L L mmol /L (136-145) Potassium 5.4 mmol/L H mmol /L (3.5-5.1) Chloride 82 mmol/L L mmol/ L (98-107) Carbon Dioxide 27 mmol/L mmol/L (22-29) Anion Gap 16.4 (5-19) BUN 26 mg/dL H mg/dL (6-20) Creatinine 0.9 mg/dL mg/dL (0.7-1.2) GFR Calculation 103.7 mL/min mL/m in (90-130) Glucose 697 mg/dL H* mg/d L (65-115) POC Glucose > 600 mg/dL H* mg /dL (70-110) Calculated Osmolal ity 288 mOsm/kg mOsm/ kg (285-295) Calcium 8.6 mg/dL mg/dL (8.5-10.5) Total Bilirubin 0.7 mg/dL mg/dL (0.15-1.2) AST 18 U/L U/L (0-40) ALT 20 U/L U/L (0-41) Alkaline Phosphata se 134 IU/L H IU/L (40-130) Total Protein 5.7 g/dL L g/dL (6.6-8.7) Albumin 3.7 g/dL g/dL (3.5-5.2) Globulin 2.0 g/dL g/dL (1.3-4.6) Lipase 37 U/L U/L (13-60) Urine Color Urine Appearance Urine pH Ur Specific Gravit y Urine Protein Urine Glucose (UA) Urine Ketones Urine Blood Urine Nitrate Urine Bilirubin Urine Urobilinogen Ur Leukocyte Angela ase 07/03/21 07/03/21 07/03/21 14:21 14:35 14:38 WBC RBC Hgb Hct MCV MCH MCHC RDW Plt Count MPV Neut % (Auto) Lymph % (Auto) [place] % (Auto) Eos % (Auto) Baso % (Auto) Neut # (Auto) Lymph # (Auto) [place] # (Auto) Eos # (Auto) Baso # (Auto) Nucleated RBC % (a uto) Nucleated RBCs # Specimen Type Arterial Sample Site Radial, right ABG pH 7.40 (7.35-7.45) ABG pCO2 39.5 mmHg mmHg (35-45) ABG pO2 86.5 mmHg mmHg (80.0-100.0) ABG HCO3 24.6 mmol/L mmol/ L (22-26) ABG O2 Saturation 97.7 ABG Base Excess -0.1 mmol/L mmol/ L (-2.0-2.0) Bereket Test Pos A-a O2 Gradient 1.7 mmHg L mmHg (5-10) Hematocrit 47.0 % % (42-52) Hgb O2 Saturation 95.3 % % (95-100) Carboxyhemoglobin 1.5 %THgb %THgb (0.4-20.1) Methemoglobin 0.9 % % (0.4-1.5) Total Hemoglobin 15.3 g/dL g/dL (14-18) Ionized Calcium 1.1 mmol/L mmol/L (1.1-1.4) O2 Delivery Device Room air FiO2 21.0 % % Hardware Designer ID glc Sodium 128.0 mmol/L L mm ol/L (131-143) Potassium 3.9 mmol/L mmol/L (3.5-5.0) Chloride Carbon Dioxide Anion Gap BUN Creatinine GFR Calculation Glucose 459.0 mg/dL H mg/ dL (70-115) POC Glucose 359 mg/dL H mg/dL (70-110) Calculated Osmolal ity Calcium Total Bilirubin AST ALT Alkaline Phosphata se Total Protein Albumin Globulin Lipase Urine Color Yellow (Yellow) Urine Appearance Clear (CLEAR) Urine pH 6 (5-7) Ur Specific Gravit y 1.010 (1.005-1.030) Urine Protein Neg (Negative) Urine Glucose (UA) 4+ H (Normal) Urine Ketones 1+ H (Negative) Urine Blood Neg (Negative) Urine Nitrate Negative (Negative) Urine Bilirubin Neg (Negative) Urine Urobilinogen Norm mg/dL mg/dL (Negative) Ur Leukocyte Angela ase Negative (Negative) Discharge Plan Discharge Patient Disposition: Placed in Observation Clinical Impression: Acute hyperglycemia, Long-term insulin use, Hyponatremia, Hyperkalemia, Diabetes type 1, uncontrolled Coding Level of Care Code ED Change Control Coordinator for Jazmín Fwd Exam Comprehensive
[2021-07-03] MEDS: ondansetron 2 mg/ML SDV 2 mL 4 MG IVP (13:05)
[2021-07-03 13:13] LABS: Basophils % 0.2 %; Eosinophils % 0.1 %; Hematocrit 49.4 % (42.0-52.0); Hemoglobin 16.6 g/dL (11.7-16.6); Lymphocytes # 1.4 10^3/uL (0.8-4.8); Lymphocytes % 10.1 %; Mean Corpuscular HGB Conc 33.6 g/dL (30.0-36.0); Mean Corpuscular Hemoglobin 30.5 pg (28.0-34.0); Mean Corpuscular Volume 90.8 fl (80-94); Mean Platelet Volume 11.6 fL (7.4-10.4); Monocytes # 0.8 10^3/uL (0.2-0.9); Monocytes % 5.6 %; Neutrophils # 11.85 10^3/uL (1.8-7.7); Neutrophils % 83.6 %; Nucleated Red Blood Cells % 0 %; Platelet Count 322 10^3/cmm (130-400); Red Blood Count 5.44 10^6/uL (4.1-5.3); Red Cell Distribution Width 12.3 % (12.1-15.1); White Blood Count 14.2 10^3/uL (4.0-10.0)
[2021-07-03 13:25] LABS: Alanine Aminotransferase 20 U/L (0-41); Albumin Level 3.7 g/dL (3.5-5.2); Alkaline Phosphatase 134 IU/L (40-130); Anion Gap 16.4 (5-19); Aspartate Amino Transferase 18 U/L (0-40); Blood Urea Nitrogen 26 mg/dL (6-20); Calcium 8.6 mg/dL (8.5-10.5); Carbon Dioxide 27 mmol/L (22-29); Chloride 82 mmol/L (98-107); Glomerular Filtration Rate 103.7 mL/min (90-130); Lipase 37 U/L (13-60); Osmolality Calculated 288 mOsm/kg (285-295); Potassium 5.4 mmol/L (3.5-5.1); Sodium 120 mmol/L (136-145); Total Bilirubin 0.7 mg/dL (0.15-1.2); Total Protein 5.7 g/dL (6.6-8.7)
[2021-07-03 13:32] LABS: Glucose 697 mg/dL (65-115)
[2021-07-03] MEDS: insulin regular-human 100 units/1 mL 12 UNIT IVP (13:53)
[2021-07-03] MEDS: sodium chloride 0.9% 1,000 ML 200 ML IV (14:08)
[2021-07-03 14:32] LABS: ABG PCO2 39.5 mmHg (35-45); Alveolar-Arterial Oxygen Gradi 1.7 mmHg (5-10); Base Excess ABG -0.1 mmol/L (-2.0-2.0); Blood Gas Allen Test Pos; Blood Gas Operator Identificat glc; Blood Gas Sample Site Radial, right; Blood Gas Sample Type Arterial; Carboxyhemoglobin 1.5 %THgb (0.4-20.1); HCO3 ABG 24.6 mmol/L (22-26); HGB O2 Sat 95.3 % (95-100); Ionized Calcium Level - ABG 1.1 mmol/L (1.1-1.4); Methemoglobin 0.9 % (0.4-1.5); Oxygen Device ROOM AIR; Oxygen Saturation ABG 97.7; PO2 ABG 86.5 mmHg (80.0-100.0); Potassium Level - ABG 3.9 mmol/L (3.5-5.0); Total Hemoglobin 15.3 g/dL (14-18)
[2021-07-03 14:42] LABS: Glucose Point of Care 359 mg/dL (70-110)
[2021-07-03 14:49] LABS: Add Urine Microscopic? NO; Charge for UA Resulting for Rev
[2021-07-03 14:52] LABS: Bilirubin Urine Neg (Negative); Blood Urine Neg (Negative); Glucose Urine UA 4+ (Normal); Ketones Urine 1+ (Negative); Nitrate Urine Negative (Negative); Protein Urine Neg (Negative); Urine Appearance Clear (CLEAR); Urine Color Yellow (Yellow); Urobilinogen Urine Norm (Negative); pH Urine 6 (5-7)
[2021-07-03 14:53] LABS: Leukocyte Esterase Urine Negative (Negative)
[2021-07-03 15:00] LABS: Amphetamines Screen Urine Negative (Negative); Barbiturates Screen Urine Negative (Negative); Benzodiazepines Screen Urine Negative (Negative); Cocaine Screen Urine Negative (Negative); Opiate Screen Urine Negative (Negative); PCP Screen Urine Negative (Negative); THC Screen Urine Negative (Negative)
[2021-07-03] MEDS: insulin regular-human 250 UNIT in sodium chloride 0.9% 250 ML 8.9 UNIT IV (15:03)
--- NOTE | 2021-07-03 15:49 | PM.HP ---
Providers/Chief Complaint Admitting Physician: Jens River MD Primary Care Provider: Peace Brothers MD Chief Complaint: ACHY ALL OVER TODAY,GEN MALAISE,POSS DKA 1 DAY AGO History of Present Illness Jean Miller is a 26 year old male with history of type 1 diabetes mellitus recurrent admissions with DKA last in June 2020 on insulin 20 units Lantus and premeals as per insulin sliding scale follows up with Dr. Jones presents to the ER today because of not feeling well, nausea, vomiting and abdominal discomfort. He states he has been taking his insulin regularly but has not been following up with Dr. Jones is still waiting for the call from the office. On presentation to the ER patient was found to be in mild DKA with pH of 7.4, anion gap of 16 and blood sugar of more than 700. Patient was given 2 L of IV fluid bolus and started on insulin sliding drip Review of Systems General: Reports: 10 or more systems reviewed and unremarkable except in HPI and below Const: Denies: fever(s), chills, body aches, change in appetite, change in weight, malaise, night sweats, diaphoresis, change in sleep pattern, daytime sleepiness or snoring Eyes: Denies: change in vision, blurry vision, photophobia, eye discomfort or eye discharge ENMT: Denies: throat pain, enlarged tonsils, hoarseness, mouth pain, oral sores, dry mouth, tinnitus, nasal congestion or post nasal drip Card: Denies: chest pain, palpitations, irregular heart rhythm, edema, swelling of feet/ankles, lightheadedness, syncope, pre-syncope, dyspnea on exertion, orthopnea, leg pain with exertion or acrocyanosis Resp: Denies: dyspnea, productive cough, non-productive cough, wheezing, stridor, pain on inspiration, change in phlegm color, hemoptysis or chest congestion GI: Denies: abdominal pain, nausea, vomiting, hematemesis, coffee ground emesis, dysphagia, heartburn, diarrhea, constipation, bloating, GI cramping, change in bowel habits, pain on defecation, hematochezia or melena : Denies: flank pain, difficulty urinating, dysuria, urinary frequency, urinary urgency, urinary hesitancy, urinary dribbling, difficulty starting urination, change in urine stream, nocturia or hematuria Musc: Denies: neck pain, back pain, extremity pain, joint pain, joint swelling, joint redness, joint stiffness or limited range of motion Neuro: Denies: headache(s), numbness in extremities, weakness in extremities, sensory changes, lack of coordination, difficulty walking, frequent falls, dizziness, vertigo, confusion, Slurred speech present, difficulty communicating thoughts or seizure-like activity Psych: Denies: anxiety, depression, mood swings, panic attacks, hopelessness or irritability Endo: Denies: polyuria, polydipsia, tired all the time, cold intolerance, excessive sweating, flushing or heat intolerance Basim/Lymph: Denies: easy bruising or easy bleeding All/Imm: Denies: tongue swelling, facial swelling or acute wheezing Medications/Allergies Home Medications Medication Instructions Recorded Confirmed Last Taken Type ibuprofen [IBU] 800 mg PO TID PRN #30 tab 11/04/20 07/03/21 Unknown Rx insulin detemir U-100 100 unit/mL 20 unit SUBCUT DAILY ml 12/08/20 07/03/21 07/02/21 History (3 mL) subcutaneous pen insulin regular human 100 unit/mL 10 unit .ROUTE TID ml 12/08/20 07/03/21 07/02/21 History (3 mL) subcutaneous pen Allergies Allergy/AdvReac Type Severity Reaction Status Date / Time No Known Allergies Allergy Verified 12/25/20 19:47 PFSH Acute PFSH: Medical History Diabetes type 1, uncontrolled History of DKA Surgical History No history of previous surgery none known Family History Other Family history unknown Social History Smoking and tobacco status: current every day smoker cigarettes Packs smoked per day: 1 Alcohol intake: never Current occupational status: employed Vitals/I&O/Wt Last Vital Signs Temp 98.0 F 07/03/21 12:36 Pulse 108 H 07/03/21 14:40 Resp 12 07/03/21 14:40 BP 93/64 07/03/21 14:40 Pulse Ox 98 09/20/21 14:40 Weight last 48 hrs Weight 63.503 kg Physical Exam Narrative: EXAM NARRATIVE: General: No acute distress, AO x3 HEENT: PERRLA, pupils bilaterally equal and reactive Chest: Normal vesicular breath sounds, no added sounds, equal good air entry bilaterally CVS: S1-S2 regular, no murmurs, no tachycardia, no gallops, no rubs Abdomen: Soft, nontender, no organomegaly, bowel sounds present Neuro: No focal deficits, no facial deformity, AO x3, power 5/5 in all limbs Data : 07/03/21 12:55 07/03/21 12:55 A&P Assessment and plan (1) DKA (diabetic ketoacidoses): Status: Acute (2) Diabetes type 1, uncontrolled: Status: Chronic (3) Long-term insulin use: Status: Acute (4) Hyperkalemia: Status: Acute Additional A&P Information DKA: Start patient on insulin sliding scale as per DKA protocol. N.p.o. for now. We will start the insulin sliding scale and Lantus once the anion gap closes. Check BMP every 4 hours. Normal saline at 125 cc/h. Once potassium below 4 add 20 mEq Potassium. Once blood sugar below 250 and if anion gap still elevated switch to fluid to D5 NS at 25 cc/h. Hyperkalemia: Should get better with insulin drip. Continue to monitor every 4 hourly with BMP. Check iron panel, Procalcitonin, MRSA swab, lipid panel, HbA1c, CPK, acetone level. Full code. NPO. Protonix for PUD prophylaxis. Heparin for DVT prophylaxis. Attestations Medical Necessity Statement*: Admission for more than 2 midnights for DKA. Time Spent in Patient Care: Greater than 35 minutes (>than 50% of time spent in counselling and/or direct pt care on unit). Coding Level of Care Code Acute Financial Analyst Accountant for Jazmín Agosto Diagnoses DKA (diabetic ketoacidoses) E11.10 Diabetes type 1, uncontrolled E10.65 Long-term insulin use Z79.4 Hyperkalemia E87.5
[2021-07-03 15:53] LABS: Glucose Point of Care 286 mg/dL (70-110)
[2021-07-03 17:06] LABS: NT Pro B Type Natriuretic Pept 153 pg/mL (0-125)
[2021-07-03 17:07] LABS: Thyroid Stimulating Hormone 0.33 uIU/mL (0.27-4.20)
[2021-07-03 17:07] LABS: Glucose Point of Care 180 mg/dL (70-110)
[2021-07-03 17:17] LABS: Iron 230 ug/dL (59-158); Percent Saturation 90.1 % (20-50); Total Iron Binding Capacity 255 mcg/dl; Unsaturated Iron Binding 25 ug/dL (112-347)
[2021-07-03] MEDS: dextrose 5%-sod chloride 0.9% 1,000 ML 75 ML IV (17:36)
[2021-07-03 17:51] LABS: Ketone (Acetest) Serum Negative (Negative)
--- NOTE | 2021-07-03 17:53 | PC.NURSE ---
1645-recpaige from leonor on insulin gtt. at 12units/hr. a/o. up to side of bed from cart, then to bed asking for sandwich.
--- NOTE | 2021-07-03 17:55 | PC.NURSE ---
1745- called re:drop in blood sugar. insulin gtt is at 3 units/hr.
--- NOTE | 2021-07-03 17:58 | PC.NURSE ---
wanting to leave ama. states he is hungry. i,m not staying here all noc.
[2021-07-03 18:11] LABS: Glucose Point of Care 221 mg/dL (70-110)
[2021-07-03 18:17] LABS: Anion Gap 12.2 (5-19); Carbon Dioxide 29 mmol/L (22-29); Chloride 98 mmol/L (98-107); Glomerular Filtration Rate 118.8 mL/min (90-130); Osmolality Calculated 288 mOsm/kg (285-295); Potassium 4.2 mmol/L (3.5-5.1)
[2021-07-03 18:18] LABS: Glucose 170 mg/dL (65-115); Sodium 135 mmol/L (136-145)
[2021-07-03 18:19] LABS: Blood Urea Nitrogen 23 mg/dL (6-20); Calcium 8.3 mg/dL (8.5-10.5)
--- NOTE | 2021-07-03 18:21 | PC.NURSE ---
pt refused to stay after numerous attempts by different staff, stated after lab bck he might be able to have solid food, states no i have a ride waiting outside. informed him labs would be back in about 15 min. still ref. to stay. requested ama form and that iv be taken out. after paper signed, 18 ga. removed from left ac intact and pressure dressing applied. he removed heart monitor, put his shoes on and walked out the door.
--- NOTE | 2021-07-07 15:07 | PC.RESP ---
SMOKING CESSATION INFORMATION SENT TO PATIENT.
== END 2021-07-03 18:20 | disposition left against medical advice (07) | DRG 638 ==
LOC: ER 14:41 → ICU 15:45
PROVIDERS: Admitting Provider Student in an Organized Health Care Education/Training Program; Emergency Provider Emergency Medicine; PCP Family Medicine; Visit Provider Student in an Organized Health Care Education/Training Program
DX: E10.10 Type 1 diabetes mellitus with ketoacidosis without coma (principal); E87.1 Hypo-osmolality and hyponatremia; Z53.29 Procedure and treatment not carried out because of patient's decision for other reasons; F17.210 Nicotine dependence, cigarettes, uncomplicated; E87.5 Hyperkalemia
CPT/HCPCS: 36416; 36600; 80048; 80051; 80053; 80306; 81003; 82009; 82330; 82805; 82962; 83540; 83550; 83690; 83880; 84145; 84443; 85025; 87641; 96361; 96365; 96375; 99291; J1815; J2405; J7030; J7050

== ENCOUNTER 2021-10-26 16:22 | Inpatient (IN) | payer BC, MEDICAID, SELFPAY ==
[2021-10-26 16:37] LABS: Glucose Point of Care > 600 mg/dL (70-110)
--- NOTE | 2021-10-26 16:42 | CTR_ITS ---
PROCEDURE INFORMATION: Exam: CT Head Without Contrast Exam date and time: 10/26/2021 4:42 PM Age: 26 years old Clinical indication: Altered mental status/memory loss TECHNIQUE: Imaging protocol: Computed tomography of the head without contrast. Radiation optimization: All CT scans at this facility use at least one of these dose optimization techniques: automated exposure control; mA and/or kV adjustment per patient size (includes targeted exams where dose is matched to clinical indication); or iterative reconstruction. COMPARISON: No relevant prior studies available. RADIATION DOSE METRICS: Total DLP (mGy-cm): 1552.49 FINDINGS: Brain: Normal. No hemorrhage or evidence of acute infarction. No mass effect. Cerebral ventricles: No ventriculomegaly. Paranasal sinuses: Visualized sinuses are unremarkable. No fluid levels. Mastoid air cells: Visualized mastoid air cells are well aerated. Bones/joints: Unremarkable. No acute fracture. Soft tissues: Mild soft tissue swelling is present in the right parietal scalp.. CT/CT head wo con* [id number] IMPRESSION: No acute intracranial abnormality.
--- NOTE | 2021-10-26 16:42 | XRR_ITS ---
PROCEDURE INFORMATION: Exam: XR Chest Exam date and time: 10/26/2021 4:42 PM Age: 26 years old Clinical indication: Other: Weakness; Additional info: Altered mental status TECHNIQUE: Imaging protocol: XR of the chest. Views: 1 view. COMPARISON: CR XR chest 1V portable [id number] 10/28/2020 7:06 PM FINDINGS: Lungs: Faint medial right basilar opacity may be partial atelectasis or early pneumonia. The lungs are otherwise clear. Pleural spaces: Unremarkable. No pleural effusion. No pneumothorax. Heart/Mediastinum: Unremarkable. No cardiomegaly. Bones/joints: Unremarkable. XR/XR chest 1V portable [id number] IMPRESSION: Medial right basilar atelectasis versus pneumonia.
[2021-10-26 16:52] VITALS: BP 100/57; PULSE 105; RESP 30; O2SAT 97
[2021-10-26] MEDS: sodium chloride 0.9% 1,000 ML 999 ML IV ×2 (16:57→17:52)
[2021-10-26 17:00] LABS: Hematocrit 52.2 % (42.0-52.0); Hemoglobin 14.5 g/dL (11.7-16.6); Mean Corpuscular HGB Conc 27.8 g/dL (30.0-36.0); Mean Corpuscular Volume 111.8 fl (80-94); Mean Platelet Volume 12.9 fL (7.4-10.4); Platelet Count 451 10^3/cmm (130-400); Red Blood Count 4.67 10^6/uL (4.1-5.3); Red Cell Distribution Width 12.5 % (12.1-15.1)
[2021-10-26 17:07] LABS: ABG PCO2 9.1 mmHg (35-45); ABG PH Result 6.98 (7.35-7.45); Arterial Blood Gas Hematocrit 37.8 % (42-52); Base Excess ABG -27.5 mmol/L (-2.0-2.0); Blood Gas Operator Identificat ED; Blood Gas Sample Site Brachial, left; Blood Gas Sample Type Arterial; HCO3 ABG 2.2 mmol/L (22-26); Oxygen Device ROOM AIR
[2021-10-26 17:19] LABS: White Blood Count 42.2 10^3/uL (4.0-10.0)
[2021-10-26 17:20] LABS: Absolute Segmented Neutrophil 30.4 10/cmm (1.6-7.1); Segmented Neutrophils 72 %; Total Cells Counted 100 (0-100)
[2021-10-26 17:21] LABS: Band Neutrophils Absolute 1.7 10^3/cmm (0.0-1.2); Eosinophils 0 %; Lymphocytes 14 %; Lymphocytes Absolute 5.9 10^3/cmm (1.2-3.4); Monocytes Absolute 4.2 10^3/cmm (0.1-0.6)
[2021-10-26 17:24] LABS: Ketone (Acetest) Serum Positive (Negative)
--- NOTE | 2021-10-26 17:31 | W.ED.AMS ---
HPI - Altered Mental Status General: Chief Complaint: Altered Mental Status Stated Complaint: DKA, ALOC Time Seen by Provider: 10/26/21 16:36 History of Present Illness: HPI narrative: Patient is brought in by EMS with altered mental status. Per family the patient has a history of type 1 diabetes. Upon arrival here his blood glucose is high on the monitor. The patient is altered. He will mumble and respond to some basic commands. His review of systems and history is otherwise limited. Review of Systems General: Reports: ROS unobtainable due to mental status PFS ED PFSH: Medical History Diabetes type 1, uncontrolled History of DKA Surgical History No history of previous surgery none known Family History Other Family history unknown Social History Smoking and tobacco status: current every day smoker cigarettes Packs smoked per day: 1 Alcohol intake: never Current occupational status: employed Physical Exam Const: COMMON NORMALS: apparent distress (Patient is confused and altered) GENERAL APPEARANCE: lethargic ORIENTATION/CONSCIOUSNESS: Yes patient obtunded and Yes lethargic HENMT: MOUTH: moist mucous membranes not abnormal (Dry mucous membranes) Eye: COMMON NORMALS: Equal, round and reactive pupils present and EOMs intact bilaterally PUPIL: Yes Equal, round and reactive pupils present Neck/C-Spine: COMMON NORMALS: full ROM and supple Chest: COMMONS NORMALS: normal inspection of the chest Resp: EFFORT & INSPECTION: Yes symmetric chest movement and Yes tachypneic Cardio: COMMON NORMALS: regular rhythm RATE: tachycardic RHYTHM: regular rhythm GI: COMMON NORMALS: Soft to palpation PALPATION: Yes Soft to palpation and Yes Tenderness to palpation present (GI) (Generalized tenderness to palpation) Extremity: COMMON NORMALS: normal to inspection and full ROM Neuro: SENSORIUM/ORIENTATION: Yes lethargic and Yes obtunded Course Vital Signs: Vital signs: Vital Signs Pulse Rate 105 H 10/26/21 16:52 Respiratory Rate 30 H 10/26/21 16:52 Blood Pressure 100/57 10/26/21 16:52 Pulse Oximetry 97 10/26/21 16:52 MDM - Altered Mental Status MDM Narrative: Medical decision making narrative: Patient is brought in by EMS with altered mental status. Per family the patient has a history of type 1 diabetes. Upon arrival here his blood glucose is high on the monitor. The patient is altered. He will mumble and respond to some basic commands. His review of systems and history is otherwise limited. We will start IV fluids. He got a liter in route, will give 2 more liters here. Will check labs, and reassess. On reassessment the patient's pH is 6.9. His potassium is greater than 7. Will start an insulin drip, a bicarb drip, give insulin push due to the elevated potassium. Continue IV fluid resuscitation, and reassess. I talked to the hospitalist and we will admit the patient to the ICU. Lab Data: Labs: Lab Results 10/26/21 10/26/21 10/26/21 16:33 16:36 16:36 WBC 42.2 10^3/uL H* 1 0^3/uL (4.0-10.0) RBC 4.67 10^6/uL 10^6 /uL (4.1-5.3) Hgb 14.5 g/dL g/dL (11.7-16.6) Hct 52.2 % H % (42.0-52.0) MCV 111.8 fl H fl (80-94) MCH 31.0 pg pg (28.0-34.0) MCHC 27.8 g/dL L g/dL (30.0-36.0) RDW 12.5 % % (12.1-15.1) Plt Count 451 10^3/cmm H 10 ^3/cmm (130-400) MPV 12.9 fL H fL (7.4-10.4) Total Counted 100 (0-100) Atypical Lymphs % 0.0 % % (0-5) Segmented Neutroph ils 72 % % Abs Segm Neuts (Ma n) 30.4 10/cmm H 10/ cmm (1.6-7.1) Band Neutrophils 4.0 % % Abs Band Neuts (Ma n) 1.7 10^3/cmm H 10 ^3/cmm (0.0-1.2) Absolute Lymphocyt es 5.9 10^3/cmm H 10 ^3/cmm (1.2-3.4) Lymphocytes (Manua l) 14 % % Monocytes (Manual) 10.0 % % Absolute Monocytes 4.2 10^3/cmm H 10 ^3/cmm (0.1-0.6) Eosinophils (Manua l) 0 % % Absolute Eosinophi ls 0.0 10^3/cmm 10^3 /cmm (0.0-0.7) Basophils (Manual) 0.0 % % Absolute Basophils 0.0 10^3/cmm 10^3 /cmm (0.0-0.2) Specimen Type Sample Site ABG pH ABG pCO2 ABG pO2 ABG HCO3 ABG Base Excess Bereket Test Hematocrit O2 Delivery Device FiO2 Plastic Bubble Packer ID POC Glucose > 600 mg/dL H* mg /dL (70-110) Serum Ketones Positive H (Negative) 10/26/21 16:55 WBC RBC Hgb Hct MCV MCH MCHC RDW Plt Count MPV Total Counted Atypical Lymphs % Segmented Neutroph ils Abs Segm Neuts (Ma n) Band Neutrophils Abs Band Neuts (Ma n) Absolute Lymphocyt es Lymphocytes (Manua l) Monocytes (Manual) Absolute Monocytes Eosinophils (Manua l) Absolute Eosinophi ls Basophils (Manual) Absolute Basophils Specimen Type Arterial Sample Site Brachial, left ABG pH 6.98 L* (7.35-7.45) ABG pCO2 9.1 mmHg L* mmHg (35-45) ABG pO2 152.0 mmHg H mmHg (80.0-100.0) ABG HCO3 2.2 mmol/L L mmol /L (22-26) ABG Base Excess -27.5 mmol/L L mm ol/L (-2.0-2.0) Bereket Test N/a Hematocrit 37.8 % L % (42-52) O2 Delivery Device Room air FiO2 21.0 % % Plastic Bubble Packer ID Ed POC Glucose Serum Ketones Critical Care Time Critical Care Time: Critical Care Time: Yes Total Critical Care Time: 35 Attestation: This case had a high probability of a clinically significant, sudden, or life threatening deterioration of this patient's condition which required my full and direct attention, intervention and personal management. Discharge Plan Discharge Patient Disposition: Admitted As Inpatient Clinical Impression: DKA (diabetic ketoacidoses) Qualifiers: Diabetes mellitus type: type 1 Diabetes mellitus complication detail: with coma Qualified Code(s): E10.11 - Type 1 diabetes mellitus with ketoacidosis with coma Condition: Stable Coding Level of Care Code ED Training Development Director for Jazmín Agosto
[2021-10-26 17:32] LABS: Alanine Aminotransferase 89 U/L (0-41); Albumin Level 4.1 g/dL (3.5-5.2); Alkaline Phosphatase 219 IU/L (40-130); Aspartate Amino Transferase 38 U/L (0-40); Blood Urea Nitrogen 42 mg/dL (6-20); Calcium 8.3 mg/dL (8.5-10.5); Chloride 63 mmol/L (98-107); Globulin 2.2 g/dL (1.3-4.6); Glomerular Filtration Rate 25.8 mL/min (90-130); Total Bilirubin 0.2 mg/dL (0.15-1.2); Total Protein 6.3 g/dL (6.6-8.7)
[2021-10-26 17:46] LABS: Absolute Neutrophil 32.1 10^3/cmm (1.4-6.5); Platelet Estimate Normal (Normal)
[2021-10-26] MEDS: insulin regular-human 100 units/1 mL 10 UNIT IVP (17:46)
[2021-10-26] MEDS: lactated ringers 1,000 ML 999 ML IV (17:47)
[2021-10-26 17:56] LABS: Anion Gap 59.9 (5-19); Carbon Dioxide 4 mmol/L (22-29); Potassium 7.9 mmol/L (3.5-5.1); Sodium 119 mmol/L (136-145)
[2021-10-26 17:57] LABS: Triglycerides 165 mg/dL (0-150)
[2021-10-26 18:20] LABS: Glucose 1676 mg/dL (65-115); Osmolality Calculated 346 mOsm/kg (285-295)
[2021-10-26 18:21] LABS: Lactate (Lactic Acid level) 8.5 mmol/L (0.5-2.2)
--- NOTE | 2021-10-26 18:29 | ECG_ITS ---
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: : [id number] Requested By: Daniel Mosley Order Number: [id number] Reading MD: DANIEL LAKE Measurements Intervals [place] Rate: 110 P: 78 AL: 148 QRS: 71 QRSD: 76 T: 60 QT: 326 QTc: 442 Interpretive Statements SINUS TACHYCARDIA WITH OCCASIONAL VENTRICULAR PREMATURE COMPLEXES POSSIBLE LEFT ATRIAL ENLARGEMENT [-0.1mV P-WAVE IN V1/V2] ABNORMAL RHYTHM ECG Compared to ECG 03/16/2021 19:51:30 Ventricular premature complex(es) now present Electronically Signed On 10-27-2021 18:16:18 MATERIALS ENGINEER by DANIEL LAKE [email or web address]
--- NOTE | 2021-10-26 18:33 | CTR_ITS ---
PROCEDURE INFORMATION: Exam: CT Chest Without Contrast; Diagnostic Exam date and time: 10/26/2021 6:33 PM Age: 26 years old Clinical indication: Abdominal tenderness; Other: Dka; Additional info: Dka AMS TECHNIQUE: Imaging protocol: Diagnostic computed tomography of the chest without contrast. Radiation optimization: All CT scans at this facility use at least one of these dose optimization techniques: automated exposure control; mA and/or kV adjustment per patient size (includes targeted exams where dose is matched to clinical indication); or iterative reconstruction. COMPARISON: CR (CHEST, ) 10/26/2021 5:01 PM RADIATION DOSE METRICS: Total DLP (mGy-cm): 1456.72 FINDINGS: Mild patient motion occurs during the examination. Lungs: Small ground-glass opacities are seen in the posterior lung bases (right greater than left). The lungs are otherwise clear. Pleural spaces: Unremarkable. No pneumothorax. No pleural effusion. Heart: The heart is normal in size. Aorta: Unremarkable. No aortic aneurysm. Lymph nodes: Unremarkable. No enlarged lymph nodes. Bones/joints: Unremarkable. No acute fracture. Soft tissues: Unremarkable. PROCEDURE INFORMATION: Exam: CT Abdomen And Pelvis Without Contrast Exam date and time: 10/26/2021 6:33 PM Age: 26 years old Clinical indication: Abdominal tenderness; Other: Dka; Additional info: Dka AMS TECHNIQUE: Imaging protocol: Computed tomography of the abdomen and pelvis without contrast. Radiation optimization: All CT scans at this facility use at least one of these dose optimization techniques: automated exposure control; mA and/or kV adjustment per patient size (includes targeted exams where dose is matched to clinical indication); or iterative reconstruction. COMPARISON: CR (CHEST, ) 10/26/2021 5:01 PM RADIATION DOSE METRICS: Total DLP (mGy-cm): 1456.72 FINDINGS: Mild patient motion occurs during the examination. Liver: Normal. No mass. Gallbladder and bile ducts: Normal. No calcified stones. No ductal dilation. Pancreas: Normal. No ductal dilation. Spleen: Normal. No splenomegaly. Adrenal glands: Normal. No mass. Kidneys and ureters: A 14 mm simple appearing right renal cyst is appreciated. The kidneys appear normal. No renal stone is visualized. Stomach and bowel: Unremarkable. No obstruction. No mucosal thickening. Appendix: The appendix is normal. Intraperitoneal space: Unremarkable. No free air. No significant fluid collection. Vasculature: Unremarkable. No abdominal aortic aneurysm. Lymph nodes: Unremarkable. No enlarged lymph nodes. Urinary bladder: Urinary bladder is distended and appears normal. Reproductive: Unremarkable as visualized. Bones/joints: Unremarkable. No acute fracture. Soft tissues: Unremarkable. CT/CT chest abd pel wo con IMPRESSION: Mild patient motion. Possible mild bilateral lower lobe pneumonia. IMPRESSION: Mild patient motion. No acute abnormality is seen in the abdomen or pelvis.
--- NOTE | 2021-10-26 18:35 | P.HP_ITS ---
Providers/Chief Complaint Primary Care Provider: Peace Brothers MD Chief Complaint: DKA, ALOC History of Present Illness Jean Miller is a 26 year old male is a type I diabetic, takes Lantus 20 units daily and 10 units before meal, awaiting insulin pump placement which has been approved by his insurance, presented for recurrent nausea vomiting. Mother stating that he has been depressed pretty badly. He ran out of insulin about 4 8 hours ago before the presentation to the ER he did not tell his family or parents. Today when his mother arrived back from her job she brought him to the hospital for his worsening of condition. Last 48 hours he probably vomited more than 20 times as per the mother. Patient is Very drowsy however able to follow commands and open eyes to verbal commands. Nonfocal neuro exam. He smokes cigarettes, denies drug abuse. In the ER he was diagnosed with severe DKA blood sugar 1600, I placed bicarb drip order when ER physician called me to sign out however when I evaluated him around 630 neither insulin or bicarb drip were initiated, ER nurse asked me to verify insulin order I asked him to follow insulin drip order protocol which his blood sugar -60 x 0.03=46 U, I asked him to start with 30 units and check blood sugar within 30 minutes to avoid hypoglycemia he has received total 4 L of IV bolus I have requested 2L lactated Ringer boluses as well Severe metabolic acidosis, asked nurse to transfer him to ICU as soon as possible Check sugar every hour BMP every 4 hours I have signed out to cluster bore operator Dr. Wisdom as well Hyperkalemia noted, will give him calcium gluconate, hyperacute T waves on EKG, requested troponin, lipase, drug screen, CPK level Is not vaccinated for COVID-19 CT chest abdomen pelvis requested which showed bilateral infiltrates I have requested COVID test Review of Systems Const: Reports: chills, body aches, change in appetite, fatigue and malaise Eyes: Reports: blurry vision ENMT: Reports: throat pain Card: Denies: chest pain Resp: Denies: dyspnea GI: Reports: abdominal pain, nausea and vomiting : Denies: flank pain Musc: Denies: neck pain Skin/Breast: Denies: rash Neuro: Denies: headache(s) Psych: Reports: depression Endo: Denies: polyuria Basim/Lymph: Denies: easy bruising All/Imm: Denies: urticaria Medications/Allergies Home Medications Medication Instructions Recorded Confirmed Last Taken Type ibuprofen [IBU] 800 mg PO TID PRN #30 tab 11/04/20 07/03/21 Unknown Rx insulin detemir U-100 100 unit/mL 20 unit SUBCUT DAILY ml 12/08/20 07/03/21 07/02/21 History (3 mL) subcutaneous pen insulin regular human 100 unit/mL 10 unit .ROUTE TID ml 12/08/20 07/03/21 07/02/21 History (3 mL) subcutaneous pen Allergies Allergy/AdvReac Type Severity Reaction Status Date / Time No Known Allergies Allergy Verified 12/25/20 19:47 PFSH Acute PFSH: Medical History Diabetes type 1, uncontrolled History of DKA Surgical History No history of previous surgery none known Family History Other Family history unknown Social History Smoking and tobacco status: current every day smoker cigarettes Packs smoked per day: 1 Alcohol intake: never Current occupational status: employed Vitals/I&O/Wt Last Vital Signs Pulse 105 H 10/26/21 16:52 Resp 30 H 10/26/21 16:52 BP 100/57 10/26/21 16:52 Pulse Ox 97 10/26/21 16:52 10/26/21 10/26/21 10/26/21 06:59 14:59 22:59 Intake Total 1999 Balance 1999 Weight last 48 hrs Weight 63.503 kg Physical Exam Narrative: EXAM NARRATIVE: Young male Drowsy in the ER Able to follow commands, moving all of his extremities Nonfocal neuro exam Multiple skin tattoos Extremely dehydrated Dry mucous membranes No use of respiratory sensory muscles Abdomen tender on deep palpation S1, S2 sinus tachycardia Lower extremity no edema Agitated mood Pupils are symmetrical No audible stridor or wheezing Data : 10/26/21 16:36 10/26/21 17:45 Micro: Microbiology 10/26/21 17:45 Blood Culture - Preliminary Blood SPECIMEN COLLECTED 10/26/21 17:42 Blood Culture - Preliminary Blood SPECIMEN COLLECTED A&P Assessment and plan (1) Acute hyperglycemia: Status: Acute (2) MICHAEL (acute kidney injury): Status: Acute (3) Hyperkalemia: Status: Acute (4) Hyponatremia: Status: Acute (5) High anion gap metabolic acidosis: Status: Acute (6) DKA (diabetic ketoacidoses): Status: Acute Qualifiers: Diabetes mellitus complication detail: with coma Diabetes mellitus type: type 1 Qualified Code(s): E10.11 - Type 1 diabetes mellitus with k etoacidosis with coma (7) Long-term insulin use: Status: Acute (8) Diabetes type 1, uncontrolled: Status: Chronic (9) Sepsis: Status: Acute Additional A&P Information Sepsis Criteria met with endorgan damage, leukocytosis, high creatinine, CT chest consistent with bilateral pneumonia Concern for aspiration pneumonia Start Zosyn Already received 4 L of IV fluids, requested 2 more liters of lactated Ringer Not hypotensive Severe DKA Start DKA protocol Stop insulin if potassium less than 3.5 for now I will give him calcium glucona te and Kayexalate for hyperkalemia, repeat BMP on stat basis, Severe metabolic acidosis Start bicarb drip Mixed metabolic and respiratory acidosis However no active signs of respiratory distress, no conversational dyspnea or tachypnea because of his young age she has compensated to some extent Monitor for indication of BiPAP overnight however with the current nausea vomiting contraindicated for now Pseudo hyponatremia secondary to hyperglycemia Keep him on normal saline Type I diabetic Awaiting insulin pump placement Previous A1c around 11 Severe depression Will start antidepressant once able to tolerate p.o. diet Hyperkalemia Check drug screen Stat BMP repeat Calcium gluconate and Kayexalate Hyperacute T waves ICU admission Check CPK, rule out rhabdo MICHAEL secondary to dehydration, anticipate improvement with IV fluids, CT abdomen pelvis unremarkable Follow-up with lipase, triglyceride level N.p.o. Full code DVT prophylaxis: Heparin Case discussed with cluster bore operator Attestations Medical Necessity Statement*: Anticipating more than 2 midnights in the hospital for severe DKA Time Spent in Patient Care: Greater than 35 minutes Coding Level of Care Code Acute Gis Instructor for [facility] Fwd Diagnoses Acute hyperglycemia R73.9 MICHAEL (acute kidney injury) N17.9 Hyperkalemia E87.5 Hyponatremia E87.1 High anion gap metabolic acidosis E87.2 DKA (diabetic ketoacidoses) E10.11 Diabetes mellitus complication detail: with coma Diabetes mellitus type: type 1 Long-term insulin use Z79.4 Diabetes type 1, uncontrolled E10.65 Sepsis A41.9
[2021-10-26 18:51] LABS: Blood Urea Nitrogen 41 mg/dL (6-20); Calcium 7.3 mg/dL (8.5-10.5); Chloride 74 mmol/L (98-107); Glomerular Filtration Rate 30.5 mL/min (90-130); Sodium 124 mmol/L (136-145)
[2021-10-26 18:53] LABS: Troponin T (5th) Once 49 ng/L (0-15)
[2021-10-26 19:01] LABS: Osmolality Calculated 338 mOsm/kg (285-295)
[2021-10-26 19:04] LABS: Lipase 991 U/L (13-60)
[2021-10-26 19:05] VITALS: BP 153/93; PULSE 107; RESP 16; O2SAT 98
[2021-10-26] MEDS: insulin regular-human 250 UNIT in sodium chloride 0.9% 250 ML 30 UNIT IV ×2 (19:08→19:30)
[2021-10-26 19:12] LABS: Glucose Point of Care > 600 mg/dL (70-110)
[2021-10-26 19:14] LABS: Potassium 7.4 mmol/L (3.5-5.1)
[2021-10-26 19:15] LABS: Anion Gap 53.4 (5-19); Carbon Dioxide 4 mmol/L (22-29); Glucose 1365 mg/dL (65-115)
--- NOTE | 2021-10-26 19:35 | PC.NURSE ---
Admission Note Patient brought to ICU 2 by LADIES SUIT OPERATOR. Patient is lethargic and moaning. Transferred the patient to new bed x4 assist. Insulin gtt infusing at 30 units/hr, Bicarb gtt infusing at 100ml/hr, and LR bolus is almost completed. Patient will answer simple yes or no questions but refuses to answer any other questions in detail. Patient placed on VS monitoring and telemetry. Patient is tachycardic in the 100's, but all other vital signs are stable. Patient placed on PUI precautions and patient swabbed for Covid-19 per MD orders. Patient denies any needs or requests at this time. Once settled, patient quickly falls asleep and is resting peacefully in bed.
[2021-10-26] MEDS: sodium bicarbonate 150 MEQ in dextrose 5% 1,000 ML 100 MEQ IV (19:53)
[2021-10-26 20:00] VITALS: RESP 20; O2SAT 100
[2021-10-26] MEDS: albuterol 8 gm MDI 4 PUFF INHALATION (20:00)
[2021-10-26 20:05] LABS: Blood Urea Nitrogen 39 mg/dL (6-20); Calcium 7.7 mg/dL (8.5-10.5); Chloride 82 mmol/L (98-107); Creatine Phosphokinase 117 U/L (39-308); Glomerular Filtration Rate 33.4 mL/min (90-130); Sodium 130 mmol/L (136-145)
[2021-10-26 20:13] LABS: Osmolality Calculated 334 mOsm/kg (285-295)
[2021-10-26 20:15] LABS: Anion Gap 47.2 (5-19); Carbon Dioxide 6 mmol/L (22-29); Glucose 1088 mg/dL (65-115); Potassium 5.2 mmol/L (3.5-5.1)
[2021-10-26 20:19] LABS: Troponin T (5th) Once 45 ng/L (0-15)
[2021-10-26 20:19] LABS: Glucose Point of Care > 600 mg/dL (70-110)
[2021-10-26 20:20] LABS: Amphetamines Screen Urine Negative (Negative); Barbiturates Screen Urine Negative (Negative); Benzodiazepines Screen Urine Negative (Negative); Cocaine Screen Urine Negative (Negative); Opiate Screen Urine Negative (Negative); PCP Screen Urine Negative (Negative); THC Screen Urine Negative (Negative)
[2021-10-26 20:30] LABS: Add Urine Microscopic? YES; Bilirubin Urine Neg (Negative); Blood Urine Trace (Negative); Glucose Urine UA Norm (Normal); Ketones Urine 2+ (Negative); Leukocyte Esterase Urine Negative (Negative); Nitrate Urine Negative (Negative); Protein Urine Neg (Negative); Specific Gravity, Urine 1.015 (1.005-1.030); Urine Appearance Clear (CLEAR); Urine Color Yellow (Yellow); Urobilinogen Urine Norm (Negative); pH Urine 5 (5-7)
[2021-10-26 20:31] LABS: Add Urine Culture? No; WBC Urine 0-4 /hpf (0-5)
[2021-10-26 20:56] LABS: Estmated Average Glucose 329; Hemoglobin A1C 13.1 % (4.0-6.0)
[2021-10-26] MEDS: piperacillin-tazobactam 3.375 GM in sodium chloride 0.9% (plus) 50 ML IV (21:06)
[2021-10-26] MEDS: calcium gluconate 0.9% NaCL 1 GM/50 ML PREMIX IV (21:06)
[2021-10-26] MEDS: sodium chloride 0.9% 1,000 ML 125 ML IV (21:07)
[2021-10-26 22:08] LABS: Glucose 684 mg/dL (65-115)
[2021-10-26 22:15] VITALS: PULSE 106
[2021-10-26 23:15] LABS: Anion Gap 29.6 (5-19); Blood Urea Nitrogen 33 mg/dL (6-20); Calcium 8.3 mg/dL (8.5-10.5); Carbon Dioxide 17 mmol/L (22-29); Chloride 98 mmol/L (98-107); Glomerular Filtration Rate 49.8 mL/min (90-130); Osmolality Calculated 323 mOsm/kg (285-295); Potassium 3.6 mmol/L (3.5-5.1); Sodium 141 mmol/L (136-145)
[2021-10-26 23:20] LABS: Glucose 519 mg/dL (65-115)
[2021-10-26] MEDS: sodium chlor 0.9% + KCl 20 mEq 20 MEQ/1,000 ML BAG 125 MEQ IV (23:43)
[2021-10-26 23:51] LABS: Adenovirus Not Detected (NOT DETECT); Chlamydia Pneumoniae Not Detected (NOT DETECT); Coronavirus 229E,HKU1,NL63,OC4 Not Detected (NOT DETECT); Human Metapneumovirus Not Detected (NOT DETECT); Human Rhinovirus/Enterovirus Not Detected (NOT DETECT); Influenza A Not Detected (NOT DETECT); Influenza A H1 Not Detected (NOT DETECT); Influenza A H1-2009 Not Detected (NOT DETECT); Influenza A H3 Not Detected (NOT DETECT); Influenza B Not Detected (NOT DETECT); Mycoplasma Pneumoniae Not Detected (NOT DETECT); Parainfluenza Virus Type 1 Not Detected (NOT DETECT); Parainfluenza Virus Type 2 Not Detected (NOT DETECT); Parainfluenza Virus Type 3 Not Detected (NOT DETECT); Parainfluenza Virus Type 4 Not Detected (NOT DETECT); Respiratory Syncytial Virus A Not Detected (NOT DETECT); Respiratory Syncytial Virus B Not Detected (NOT DETECT); SARS-COV-2 Not Detected (NOT DETECT)
[2021-10-27] VITALS (13 sets, daily range): BP systolic 128–144; BP diastolic 78–98; PULSE 92–113; RESP 12–21; TEMP 36.8–37.3; O2SAT 95–100
[2021-10-27] MEDS: D5-NS 0.45% + KCL 20 mEq 20 MEQ/1,000 ML BAG 125 MEQ IV (02:21)
[2021-10-27 03:38] LABS: Basophils # 0.1 10^3/uL (0.0-0.1); Basophils % 0.2 %; Hematocrit 37.9 % (42.0-52.0); Hemoglobin 13.3 g/dL (11.7-16.6); Lymphocytes # 2.2 10^3/uL (0.8-4.8); Lymphocytes % 8.8 %; Mean Corpuscular HGB Conc 35.1 g/dL (30.0-36.0); Mean Corpuscular Hemoglobin 30.6 pg (28.0-34.0); Mean Corpuscular Volume 87.3 fl (80-94); Neutrophils # 19.83 10^3/uL (1.8-7.7); Neutrophils % 81.4 %; Nucleated Red Blood Cells % 0 %; Platelet Count 297 10^3/cmm (130-400); Red Blood Count 4.34 10^6/uL (4.1-5.3); Red Cell Distribution Width 11.7 % (12.1-15.1); White Blood Count 24.4 10^3/uL (4.0-10.0)
[2021-10-27 03:54] LABS: Base Excess VBG 6.2 mmol/L (-3.0-3.0); Blood Gas Allen Test Pos; Blood Gas Operator Identificat JB; Blood Gas Sample Site Not specified; Blood Gas Sample Type Venous; HCO3 VBG 31.5 mmol/L (24-28); Oxygen Device ROOM AIR; PCO2 VBG 46.9 mmHg (41-51); PO2 VBG 58.2 mmHg (25-40); Venous Blood Gas Hematocrit 41.4 % (42-52); pH VBG 7.44 (7.32-7.42)
[2021-10-27 04:01] LABS: Magnesium 2.1 mg/dL (1.7-2.3)
[2021-10-27 04:05] LABS: Lactate (Lactic Acid level) 1.5 mmol/L (0.5-2.2)
[2021-10-27 04:09] LABS: Phosphorus 2.1 mg/dL (2.5-4.5)
[2021-10-27 04:22] LABS: Anion Gap 14.5 (5-19); Blood Urea Nitrogen 27 mg/dL (6-20); Carbon Dioxide 28 mmol/L (22-29); Chloride 106 mmol/L (98-107); Glomerular Filtration Rate 74.4 mL/min (90-130); Glucose 183 mg/dL (65-115); Osmolality Calculated 310 mOsm/kg (285-295); Potassium 3.5 mmol/L (3.5-5.1); Sodium 145 mmol/L (136-145)
[2021-10-27] MEDS: piperacillin-tazobactam 3.375 GM in sodium chloride 0.9% (plus) 50 ML IV ×3 (05:07→19:39)
--- NOTE | 2021-10-27 05:21 | PC.NURSE ---
Shift Note Patient's latest blood glucose is 131 with D5 1/2NS with 20 KCL at 125ml/hr and Insulin gtt has been titrated per the policy to 5 units/hr. Patient is still lethargic but will wake up and answer questions appropriately when asked. Patient has rested well all night and lab work is improving. Patient's night has been uneventful overall.
[2021-10-27 08:13] LABS: Lipase 149 U/L (13-60)
--- NOTE | 2021-10-27 08:17 | PC.PHAR ---
pt states he takes care of his own medications-notes are made in the pharmacy comments-pt states he uses ss with meals on the novolin r flexpen ozh last filled 07/10/21-pt states he uses 25 units hs ozh last filled 60 units daily on 07/10/21
[2021-10-27] MEDS: insulin glargine 100 units/1 mL 20 UNIT SUBCUT ×2 (09:24→21:39)
[2021-10-27] MEDS: sodium chloride 0.9% 1,000 ML 100 ML IV (10:30)
--- NOTE | 2021-10-27 10:38 | P.PN_ITS ---
Subjective Subjective: Interval history: DKA has resolved Bicarb drip has been turned off Requested nurse to give Lantus 20 units this morning, let him eat, start normal saline Start sliding scale Leukocytosis improved, continue Zosyn, requested lipase level, no signs of pancreatitis on CT abdomen Given potassium phosphate, noticed low phosphorus level, lipase trending down Vitals/I&O/Wt Last Vital Signs Pulse 101 H 10/27/21 05:50 Resp 18 10/27/21 08:01 BP 153/93 10/26/21 19:05 Pulse Ox 100 10/27/21 08:01 10/26/21 10/27/21 10/27/21 22:59 06:59 14:59 Intake Total 4148.500 / 4148.500 156.750 / 4305.250 53.4 / 53.4 Output Total 1100 / 1100 800 / 1900 Balance 3048.500 / 3048.500 -643.250 / 2405.250 53.4 / 53.4 Weight last 48 hrs Weight 63.503 kg Physical Exam Narrative: EXAM NARRATIVE: Patient is laying supine, his significant other at the bedside Afebrile Dehydrated Able to tolerate his consistent carb diet No active emesis Abdomen soft tender mid epigastric region on deep palpation Multiple skin tattoos No signs of edema Clinic looks dehydrated Nonfocal neuro exam Poor dental hygiene EOMI, PERRLA Following commands NIH 0 S1, S2 sinus tachycardia No audible stridor or wheezing saturating well on room air Data : 10/27/21 03:26 10/27/21 03:26 Micro: Microbiology 10/26/21 17:45 Blood Culture - Preliminary Blood SPECIMEN COLLECTED 10/26/21 17:42 Blood Culture - Preliminary Blood SPECIMEN COLLECTED A&P Assessment and plan (1) Sepsis: Status: Acute (2) Acute hyperglycemia: Status: Acute (3) MICHAEL (acute kidney injury): Status: Acute (4) Hyperkalemia: Status: Acute (5) Hyponatremia: Status: Acute (6) High anion gap metabolic acidosis: Status: Acute (7) DKA (diabetic ketoacidoses): Status: Acute Qualifiers: Diabetes mellitus complication detail: with coma Diabetes mellitus type: type 1 Qualified Code(s): E10.11 - Type 1 diabetes mellitus with ketoaci dosis with coma (8) Diabetes type 1, uncontrolled: Status: Chronic (9) Leukocytosis: Status: Acute Additional A&P Information Sepsis: Resolving Leukocytosis trending down Afebrile CT chest considering bilateral infiltrates however COVID PCR negative I will discontinue Zosyn tomorrow, continue antibiotics for now DKA: Resolved Start Lantus, sliding scale, consistent carb diet Continue normal saline at 100 mL/h Bicarb turned off, lipase trending down Severe metabolic acidosis: Resolved Hyponatremia related to hyperglycemia: Improved MICHAEL: Resolved with IV fluid hydration Hyperkalemia: Resolved Hypophosphatemia: Repleted Plan to discharge him tomorrow, outpatient endocrinology appointment and dentist appointment We will add escitalopram for his depression Full code Congestive carb diet DVT prophylaxis Heparin Attestations Medical Necessity Statement*: Discharge tomorrow Time Spent in Patient Care: 16 - 35 minutes Coding Level of Care Code Acute Retail Tire Sales Manager for g Fwd Diagnoses Sepsis A41.9 Acute hyperglycemia R73.9 MICHAEL (acute kidney injury) N17.9 Hyperkalemia E87.5 Hyponatremia E87.1 High anion gap metabolic acidosis E87.2 DKA (diabetic ketoacidoses) E10.11 Diabetes mellitus complication detail: with coma Diabetes mellitus type: type 1 Diabetes type 1, uncontrolled E10.65 Leukocytosis D72.829
[2021-10-27 10:44] LABS: Glucose Point of Care 209 mg/dL (70-110)
[2021-10-27 10:44] LABS: Glucose Point of Care 349 mg/dL (70-110)
[2021-10-27 10:44] LABS: Glucose Point of Care 232 mg/dL (70-110)
[2021-10-27 10:44] LABS: Glucose Point of Care 168 mg/dL (70-110)
[2021-10-27 10:44] LABS: Glucose Point of Care > 600 mg/dL (70-110)
[2021-10-27 10:44] LABS: Glucose Point of Care 131 mg/dL (70-110)
[2021-10-27 10:44] LABS: Glucose Point of Care 433 mg/dL (70-110)
[2021-10-27 10:44] LABS: Glucose Point of Care 131 mg/dL (70-110)
[2021-10-27 10:44] LABS: Glucose Point of Care > 600 mg/dL (70-110)
[2021-10-27 10:44] LABS: Glucose Point of Care 149 mg/dL (70-110)
[2021-10-27 10:44] LABS: Glucose Point of Care 179 mg/dL (70-110)
[2021-10-27 10:45] LABS: Glucose Point of Care 505 mg/dL (70-110)
[2021-10-27 10:45] LABS: Glucose Point of Care 503 mg/dL (70-110)
[2021-10-27 10:46] LABS: Glucose Point of Care 94 mg/dL (70-110)
[2021-10-27 10:46] LABS: Glucose Point of Care 139 mg/dL (70-110)
[2021-10-27 11:52] LABS: Glucose Point of Care 242 mg/dL (70-110)
[2021-10-27] MEDS: insulin lispro 100 unit/1 mL SUBCUT ×2 (12:38→12:39)
--- NOTE | 2021-10-27 16:47 | ECG_ITS ---
[facility] Test Date: 2021-10-26 Pat Name: Jean Miller Department: Room: 256 Gender: Male Joint Cutter Machine: : 1995 Requested By: Daniel Mosley Order Number: [id number] Reading MD: DANIEL LAKE Measurements Intervals [place] Rate: 209 P: [place]: QRS: 41 QRSD: 128 T: 93 QT: 183 QTc: 341 Interpretive Statements Supraventricular tachycardia INDETERMINATE AXIS Hyperacute T wave could be due to tachycardia Compared to ECG 03/16/2021 19:51:30 Indeterminate axis now present Myocardial infarct finding now present Sinus tachycardia no longer present Electronically Signed On 10-27-2021 18:21:23 QUALITY IMPROVEMENT CONSULTANT by DANIEL LAKE [id number]
[2021-10-27 17:30] LABS: Glucose Point of Care 100 mg/dL (70-110)
[2021-10-27 20:39] LABS: Glucose Point of Care 143 mg/dL (70-110)
[2021-10-28] MEDS: sodium chloride 0.9% 1,000 ML 100 ML IV (01:42)
[2021-10-28 04:00] VITALS: BP 129/86; PULSE 84; RESP 16; TEMP 36.8; O2SAT 98
[2021-10-28] MEDS: piperacillin-tazobactam 3.375 GM in sodium chloride 0.9% (plus) 50 ML IV (04:14)
[2021-10-28 05:29] LABS: Basophils % 0.2 %; Eosinophils % 0.1 %; Hematocrit 41.4 % (42.0-52.0); Hemoglobin 13.7 g/dL (11.7-16.6); Lymphocytes # 2.2 10^3/uL (0.8-4.8); Lymphocytes % 13.1 %; Mean Corpuscular HGB Conc 33.1 g/dL (30.0-36.0); Mean Corpuscular Hemoglobin 30.7 pg (28.0-34.0); Mean Corpuscular Volume 92.8 fl (80-94); Mean Platelet Volume 11.6 fL (7.4-10.4); Monocytes % 5.6 %; Neutrophils # 13.75 10^3/uL (1.8-7.7); Neutrophils % 80.6 %; Nucleated Red Blood Cells % 0 %; Platelet Count 234 10^3/cmm (130-400); Red Blood Count 4.46 10^6/uL (4.1-5.3); Red Cell Distribution Width 12.9 % (12.1-15.1)
[2021-10-28 05:49] LABS: Blood Urea Nitrogen 19 mg/dL (6-20); Calcium 8.2 mg/dL (8.5-10.5); Carbon Dioxide 22 mmol/L (22-29); Chloride 98 mmol/L (98-107); Glomerular Filtration Rate 91.8 mL/min (90-130); Glucose 227 mg/dL (65-115); Osmolality Calculated 291 mOsm/kg (285-295); Sodium 136 mmol/L (136-145)
[2021-10-28 06:38] LABS: Glucose Point of Care 354 mg/dL (70-110)
[2021-10-28 07:39] VITALS: BP 149/85; PULSE 86; RESP 16; TEMP 36.8; O2SAT 98
[2021-10-28] MEDS: escitalopram 10 mg Tablet 20 MG PO (07:51)
[2021-10-28] MEDS: insulin lispro 100 unit/1 mL SUBCUT ×2 (07:51)
[2021-10-28 08:29] VITALS: PULSE 92; RESP 16; O2SAT 97
[2021-10-28 09:35] LABS: Glucose Point of Care 273 mg/dL (70-110)
[2021-10-28] MEDS: sodium chloride 0.9% 500 ML 999 ML IV (09:56)
--- NOTE | 2021-10-28 11:01 | PM.DCS ---
Discharge Providers Date of Admission: 10/26/21 17:30 Date of Discharge: October 28, 2021 Attending Provider at Admission: Daniel Mosley MD Attending Provider at Discharge: Daniel Mosley MD Primary Care Provider: Peace Brothers MD Diagnoses at Discharge Discharge Diagnosis (1) Sepsis: Status: Acute (2) Acute hyperglycemia: Status: Acute (3) MICHAEL (acute kidney injury): Status: Acute (4) Hyperkalemia: Status: Acute (5) Hyponatremia: Status: Acute (6) High anion gap metabolic acidosis: Status: Acute (7) DKA (diabetic ketoacidoses): Status: Acute Qualifiers: Diabetes mellitus complication detail: with coma Diabetes mellitus type: type 1 Qualified Code(s): E10.11 - Type 1 diabetes mellitus with ketoacidosis with coma (8) Diabetes type 1, uncontrolled: Status: Chronic Permanent problem details: History of DKA (9) Leukocytosis: Status: Acute Reason for Visit Reason for Visit: DKA, ALOC Hospital Course Hospital Course 26-year-old male who has history of type 1 diabetes, currently waiting insulin pump placement, follows up with Dr. Jones, presented with chief complaint of worsening nausea vomiting. Mother was at the bedside in the ER who stated that he ran out of insulin however patient said that he just missed couple of doses of insulin however he does have enough supply at the home. He is endorsing depression no suicidal ideation. He was diagnosed with DKA at the time of admission required 6 to 7 L of IV fluid boluses, bicarb drip, hyperkalemia treatment. DKA resolved with the next 12 hours, he was transitioned to consistent carb diet and subcu insulin. His hemoglobin A1c is worsening from 11, 12 now it is 13, increase Lantus to 22 units from 20 and NovoLog to 12 units instead of 10 units, will give him 1500 mL bolus before discharge on 10/28. His nausea and vomiting has improved. Lipase trending down, potassium is normal. For his low phosphorus we will give him K-Phos for next few days. For his depression added escitalopram. Physical Exam Narrative: EXAM NARRATIVE: Looks better as compared to yesterday, euvolemic Slight tenderness in midepigastric region Able to tolerate diet And cooperative Nonfocal neuro exam Poor dental hygiene S1, S2 Saturating well on room air Discharge Data Data Completed and Pending: Completed Studies During Hospitalization Category Date Time Status CT chest abd pel wo con Stat Cat Scan 10/26/21 18:[address] head wo con* 7 0450 Urgent Cat Scan 10/26/21 16:42 Completed XR chest 1V rick ble [id number] Urgent Exams 10/26/21 16:42 Completed Pending at discharge Category Date Time Status Blood Culture Sta t Lab 10/26/21 17:45 Results Labs from last 24 hours 10/28/21 10/28/21 10/28/21 09:31 06:19 04:39 WBC RBC Hgb Hct MCV MCH MCHC RDW Plt Count MPV Neut % (Auto) Lymph % (Auto) [place] % (Auto) Eos % (Auto) Baso % (Auto) Neut # (Auto) Lymph # (Auto) [place] # (Auto) Eos # (Auto) Baso # (Auto) Nucleated RBC % (a uto) Nucleated RBCs # Sodium 136 Potassium 4.0 Chloride 98 Carbon Dioxide 22 Anion Gap 20.0 H BUN 19 Creatinine 1.0 GFR Calculation 91.8 Glucose 227 H POC Glucose 273 H 354 H Calculated Osmolal ity 291 Calcium 8.2 L 10/28/21 10/27/21 10/27/21 04:39 20:35 17:24 WBC 17.0 H RBC 4.46 Hgb 13.7 Hct 41.4 L MCV 92.8 D MCH 30.7 MCHC 33.1 D RDW 12.9 Plt Count 234 MPV 11.6 H Neut % (Auto) 80.6 Lymph % (Auto) 13.1 [place] % (Auto) 5.6 Eos % (Auto) 0.1 Baso % (Auto) 0.2 Neut # (Auto) 13.75 H Lymph # (Auto) 2.2 [place] # (Auto) 1.0 H Eos # (Auto) 0.0 Baso # (Auto) 0.0 Nucleated RBC % (a uto) 0 Nucleated RBCs # 0.0 Sodium Potassium Chloride Carbon Dioxide Anion Gap BUN Creatinine GFR Calculation Glucose POC Glucose 143 H 100 Calculated Osmolal ity Calcium 10/27/21 11:49 WBC RBC Hgb Hct MCV MCH MCHC RDW Plt Count MPV Neut % (Auto) Lymph % (Auto) [place] % (Auto) Eos % (Auto) Baso % (Auto) Neut # (Auto) Lymph # (Auto) [place] # (Auto) Eos # (Auto) Baso # (Auto) Nucleated RBC % (a uto) Nucleated RBCs # Sodium Potassium Chloride Carbon Dioxide Anion Gap BUN Creatinine GFR Calculation Glucose POC Glucose 242 H Calculated Osmolal ity Calcium Vitals: Last Vital Signs Temp 98.3 F 10/28/21 07:39 Pulse 92 10/28/21 08:29 Resp 16 10/28/21 08:29 BP 149/85 10/28/21 07:39 Pulse Ox 97 10/28/21 08:29 Discharge Plan Discharge Patient Disposition: Home Condition: Stable Prescriptions: New insulin detemir U-100 100 unit/mL (3 mL) insulin pen 22 unit SUBCUT DAILY Qty: 15 RF: 3 Novolin R Flexpen 100 unit/mL (3 mL) insulin pen 12 unit SUBCUT AC Qty: 15 RF: 3 escitalopram oxalate 20 mg tablet 20 mg PO DAILY Qty: 30 RF: 3 V-Adcc-Leeslzd 250 mg tablet 1 tab PO DAILY Qty: 10 RF: 0 Continued Novolin R Flexpen 100 unit/mL (3 mL) insulin pen See Rx Instructions .ROUTE .COMPLEX Qty: 15 RF: 3 Levemir FlexTouch U-100 Insuln 100 unit/mL (3 mL) insulin pen See Rx Instructions .ROUTE .COMPLEX Qty: 15 RF: 3 Discontinued ibuprofen [IBU] 800 mg tablet 800 mg PO TID PRN (Reason: pain) Qty: 30 RF: 0 Discharge Orders: Discharge Order (Routine); Ordered 10/28/21 Ordered By: Daniel Mosley Referrals: Peace Brothers MD [Primary Care Provider] - 1 week Elmer Jones MD [Physician] - 2 weeks Discharge Diet: Diabetic Patient Instructions: Opioid Safety Discharge Attestations Time Spent in Discharge Care*: less than 30 min Quality Metrics Clinical Quality Measures During this hospital stay, did patient experience: None Coding Level of Care Code Acute Chg FW DC note Diagnoses Sepsis A41.9 Acute hyperglycemia R73.9 MICHAEL (acute kidney injury) N17.9 Hyperkalemia E87.5 Hyponatremia E87.1 High anion gap metabolic acidosis E87.2 DKA (diabetic ketoacidoses) E10.11 Diabetes mellitus complication detail: with coma Diabetes mellitus type: type 1 Diabetes type 1, uncontrolled E10.65 Leukocytosis D72.829
[2021-10-28] MEDS: insulin lispro 100 unit/1 mL 12 UNIT SUBCUT (11:14)
[2021-10-28] MEDS: lactated ringers 1,000 ML 999 ML IV (11:14)
[2021-10-28 11:28] VITALS: BP 142/91; PULSE 86; RESP 16; TEMP 36.9; O2SAT 98
[2021-10-28 11:35] LABS: Glucose Point of Care 183 mg/dL (70-110)
--- NOTE | 2021-10-28 12:28 | PC.NURSE ---
Patient's blood sugar is at 183. Dr. Mosley approved discharge since patient was below 200. Discharge orders were given to patient and IV's were removed
[2021-10-28 13:05] VITALS: BP 142/91; PULSE 86; RESP 16; TEMP 36.9; O2SAT 98
== END 2021-10-28 13:06 | disposition home or self-care (01) | DRG 871 ==
LOC: ER 18:34 → ICU 18:38 → MEDSURG 10-27 15:28
PROVIDERS: Admitting Provider Internal Medicine; Emergency Provider Emergency Medicine; PCP Family Medicine; Visit Provider Internal Medicine
DX: A41.9 Sepsis, unspecified organism (principal); E10.10 Type 1 diabetes mellitus with ketoacidosis without coma; J69.0 Pneumonitis due to inhalation of food and vomit; N17.9 Acute kidney failure, unspecified; E87.1 Hypo-osmolality and hyponatremia; E87.4 Mixed disorder of acid-base balance; F17.210 Nicotine dependence, cigarettes, uncomplicated; E87.5 Hyperkalemia; E86.0 Dehydration; F32.A Depression, unspecified
CPT/HCPCS: 36415; 36416; 36600; 70450; 71045; 71250; 74176; 80048; 80053; 80306; 81001; 82009; 82550; 82803; 82947; 82962; 83036; 83605; 83690; 83735; 84100; 84478; 84484; 85007; 85025; 87040; 87635; 93005; 94640; 96361; 96365; 96366; 96367; 96372; 96375; 99291; J0610; J1815 ×2; J2543; J3535; J7030; J7040; J7050

== ENCOUNTER 2022-02-12 05:10 | Inpatient (IN) | payer BC, MEDICAID, SELFPAY ==
[2022-02-12] VITALS (44 sets, daily range): BP systolic 109–160; BP diastolic 78–105; PULSE 98–122; RESP 10–36; TEMP 36.1–37; O2SAT 90–117; BMI 18.6
[2022-02-12 05:21] LABS: Glucose Point of Care > 600 mg/dL (70-110)
--- NOTE | 2022-02-12 05:22 | XRR_ITS ---
PROCEDURE INFORMATION: Exam: XR Chest Exam date and time: 02/12/2022 5:43 AM Age: 27 years old Clinical indication: Dyspnea; Patient HX: SOB since yesterfday TECHNIQUE: Imaging protocol: XR of the chest. Views: 1 view. COMPARISON: CT chest abd pel wo con 10/26/2021 6:49 PM FINDINGS: Lungs: No focal airspace disease. Pleural spaces: Unremarkable. No pleural effusion. No pneumothorax. Heart/Mediastinum: Cardiomediastinal silhouette is within normal limits. Bones/joints: Unremarkable. XR/XR chest 1V portable [id number] IMPRESSION: No acute cardiopulmonary abnormality.
--- NOTE | 2022-02-12 05:23 | ECG_ITS ---
[facility] Test Date: 2022-02-12 Pat Name: Jean Miller Department: Room: [facility] Gender: Male Wrapper Hand: : 1995 Requested By: Norris Haney Order Number: [id number] Remy MD: Tamir Aquino M.D. Measurements Intervals [place] Rate: 106 P: 78 [place]: 201 QRS: 56 QRSD: 92 T: 64 QT: 334 QTc: 444 Interpretive Statements SINUS TACHYCARDIA POSSIBLE RIGHT ATRIAL ENLARGEMENT [0.25mV P-WAVE] LEFT ATRIAL ENLARGEMENT [-0.15mV P-WAVE IN V1/V2] Compared to ECG 10/26/2021 20:06:38 Ventricular premature complex(es) no longer present Electronically Signed On 02-12-2022 16:30:55 CDT by Tamir Aquino M.D. [id number]
[2022-02-12] MEDS: sodium chloride 0.9% 1,000 ML 999 ML IV ×4 (05:32→06:51)
[2022-02-12 05:33] LABS: Basophils # 0.3 10^3/uL (0.0-0.1); Basophils % 0.8 %; Eosinophils # 0.1 10^3/uL (0.0-0.8); Eosinophils % 0.2 %; Hematocrit 53.7 % (42.0-52.0); Hemoglobin 15.6 g/dL (11.7-16.6); Lymphocytes # 6.9 10^3/uL (0.8-4.8); Lymphocytes % 18.9 %; Mean Corpuscular HGB Conc 29.1 g/dL (30.0-36.0); Mean Corpuscular Hemoglobin 30.8 pg (28.0-34.0); Mean Corpuscular Volume 106.1 fl (80-94); Mean Platelet Volume 12.1 fL (7.4-10.4); Monocytes # 2.4 10^3/uL (0.2-0.9); Monocytes % 6.6 %; Neutrophils # 25.34 10^3/uL (1.8-7.7); Neutrophils % 69.1 %; Nucleated Red Blood Cells # 0.1 /100WBC; Nucleated Red Blood Cells % 0.1 %; Platelet Count 488 10^3/cmm (130-400); Red Blood Count 5.06 10^6/uL (4.1-5.3); Red Cell Distribution Width 12.2 % (12.1-15.1)
[2022-02-12] MEDS: insulin regular-human 100 units/1 mL 10 UNIT IVP (05:36)
[2022-02-12] MEDS: ondansetron 2 mg/ML SDV 2 mL 4 MG IVP (05:37)
[2022-02-12 05:41] LABS: Ketone (Acetest) Serum Positive (Negative)
[2022-02-12 05:44] LABS: Alanine Aminotransferase 37 U/L (0-41); Albumin Level 4.3 g/dL (3.5-5.2); Alkaline Phosphatase 257 IU/L (40-130); Aspartate Amino Transferase 24 U/L (0-40); Blood Urea Nitrogen 41 mg/dL (6-20); Calcium 8.8 mg/dL (8.5-10.5); Chloride 74 mmol/L (98-107); Globulin 2.1 g/dL (1.3-4.6); Glomerular Filtration Rate 38.7 mL/min (90-130); Lipase 59 U/L (13-60); Magnesium 3.1 mg/dL (1.7-2.3); Sodium 124 mmol/L (136-145); Total Bilirubin 0.2 mg/dL (0.15-1.2); Total Protein 6.4 g/dL (6.6-8.7)
[2022-02-12 05:45] LABS: Base Excess ABG -29.2 mmol/L (-2.0-2.0); Blood Gas Sample Type Arterial; HCO3 ABG 3.2 mmol/L (22-26); PO2 ABG 59.2 mmHg (80.0-100.0)
[2022-02-12 05:46] LABS: ABG PH Result 6.87 (7.35-7.45); Blood Gas Allen Test Pos; Blood Gas Sample Site Radial, left
[2022-02-12 05:47] LABS: Anion Gap 53.6 (5-19)
[2022-02-12 05:47] LABS: ABG PCO2 17.7 mmHg (35-45)
[2022-02-12 05:49] LABS: Carbon Dioxide 3 mmol/L (22-29); Potassium 6.6 mmol/L (3.5-5.1)
[2022-02-12 05:52] LABS: Osmolality Calculated 333 mOsm/kg (285-295)
--- NOTE | 2022-02-12 05:54 | ED_ITS ---
HPI - Altered Mental Status General: Chief Complaint: Altered Mental Status Stated Complaint: sob Time Seen by Provider: 02/12/22 05:18 Source: patient and family History of Present Illness: 27-year-old male type I diabetic. He presents with mental status changes and shortness of breath. Family notes that he got sick around 10 AM yesterday. He is vomited multiple times. His blood glucose monitor reads high. He has had DKA in the past. No other recent illnesses. No fever. MD complaint: altered mental status and confusion Onset (ago): hour(s) Timing confirmed by: family member Severity: moderate Consistency of symptoms: Getting Worse Context: diabetes Review of Systems General: Reports: ROS unobtainable due to medical condition (Taken from family) Const: Denies: fever(s) or chills ENMT: Denies: throat pain Card: Denies: chest pain Resp: Reports: dyspnea; Denies: productive cough or non-productive cough GI: Reports: abdominal pain, nausea and vomiting; Denies: hematemesis or diarrhea Musc: Denies: extremity swelling Neuro: Reports: headache(s) PFSH ED PFSH: Medical History Diabetes type 1, uncontrolled History of DKA Long-term insulin use Surgical History No history of previous surgery none known Family History Other Family history unknown Social History Smoking and tobacco status: current every day smoker cigarettes Packs smoked per day: 1 Alcohol intake: never Current occupational status: employed Physical Exam Const: EXAM LIMITATIONS: altered mental status GENERAL APPEARANCE: in distress, lethargic and ill appearing NUTRITIONAL APPEARANCE: thin ORIENTATION/CONSCIOUSNESS: Yes oriented to person and Yes lethargic HENMT: COMMON NORMALS: normocephalic, atraumatic and Normal external nose present HEAD & SCALP: normocephalic and atraumatic FACE & SINUS: face symmetric and abrasion NOSE: Normal external nose present MOUTH: moist mucous membranes abnormal Details: parched Eye: COMMON NORMALS: Equal, round and reactive pupils present and EOMs intact bilaterally PUPIL: Yes Equal, round and reactive pupils present Chest: CHEST: Yes Symmetrical chest wall rise Resp: COMMON NORMALS: clear to auscultation bilaterally EFFORT & INSPECTION: No able to speak in complete sentences, Yes tachypneic, Yes respiratory distress, Yes labored and Yes uses accessory muscles AUSCULTATION: clear to auscultation bilaterally Cardio: COMMON NORMALS: regular rhythm RATE: tachycardic RHYTHM: regular rhythm PERIPHERAL PULSES: radial pulses present GI: COMMON NORMALS: Soft to palpation INSPECTION: Yes normal to inspection PALPATION: Yes Soft to palpation and Yes Tenderness to palpation present (GI) (Diffuse) Extremity: COMMON NORMALS: no pedal edema Neuro: JOSE MANUEL COMA SCALE: document GCS findings Eaton coma scale eye opening: To sound Jose Manuel coma scale verbal response: Confused Jose Manuel coma scale motor response: Localising Eaton coma scale total score: 12 SENSORIUM/ORIENTATION: Yes oriented to person and Yes lethargic Skin: GENERAL SKIN EXAM: turgor decreased Course Vital Signs: Vital signs: Vital Signs Temperature 96.9 F L 02/12/22 05:18 Pulse Rate 104 H 02/12/22 05:18 Respiratory Rate 32 H 02/12/22 05:18 Blood Pressure 109/79 02/12/22 05:18 Pulse Oximetry 97 02/12/22 05:18 MDM - Altered Mental Status Medical Decision Making pH is 6.9. PCO2 is 18. Bicarbonate is 3 on blood gas his blood glucose is 1263. Serum ketones are obviously positive. He will receive an initial 3 L bolus at least, 2 A of bicarbonate, insulin drip. He will require ICU admissi on. Lab Data : 02/12/22 05:18 02/12/22 05:18 Laboratory Results WBC 36.7 10^3/uL (4.0-10.0) H* 02/12/22 05:18 RBC 5.06 10^6/uL (4.1-5.3) 02/12/22 05:18 Hgb 15.6 g/dL (11.7-16.6) 02/12/22 05:18 Hct 53.7 % (42.0-52.0) H 02/12/22 05:18 MCV 106.1 fl (80-94) H 02/12/22 05:18 MCH 30.8 pg (28.0-34.0) 02/12/22 05:18 MCHC 29.1 g/dL (30.0-36.0) L 02/12/22 05:18 RDW 12.2 % (12.1-15.1) 02/12/22 05:18 Plt Count 488 10^3/cmm (130-400) H 02/12/22 05:18 MPV 12.1 fL (7.4-10.4) H 02/12/22 05:18 Neut % (Auto) 69.1 % 02/12/22 05:18 Lymph % (Auto) 18.9 % 02/12/22 05:18 [place] % (Auto) 6.6 % 02/12/22 05:18 Eos % (Auto) 0.2 % 02/12/22 05:18 Baso % (Auto) 0.8 % 02/12/22 05:18 Neut # (Auto) 25.34 10^3/uL (1.8-7.7) H 02/12/22 05:18 Lymph # (Auto) 6.9 10^3/uL (0.8-4.8) H 02/12/22 05:18 [place] # (Auto) 2.4 10^3/uL (0.2-0.9) H 02/12/22 05:18 Eos # (Auto) 0.1 10^3/uL (0.0-0.8) 02/12/22 05:18 Baso # (Auto) 0.3 10^3/uL (0.0-0.1) H 02/12/22 05:18 Nucleated RBC % (auto) 0.1 % 02/12/22 05:18 Nucleated RBCs # 0.1 /100WBC 02/12/22 05:18 Specimen Type Arterial 02/12/22 05:33 Sample Site Radial, left 02/12/22 05:33 ABG pH 6.87 (7.35-7.45) L* 02/12/22 05:33 ABG pCO2 17.7 mmHg (35-45) L* 02/12/22 05:33 ABG pO2 59.2 mmHg (80.0-100.0) L 02/12/22 05:33 ABG HCO3 3.2 mmol/L (22-26) L 02/12/22 05:33 ABG Base Excess -29.2 mmol/L (-2.0-2.0) L 02/12/22 05:33 Bereket Test Pos 02/12/22 05:33 Hematocrit 45.0 % (42-52) 02/12/22 05:33 O2 Delivery Device None 02/12/22 05:33 Cat Cracker Operator ID Hensa 02/12/22 05:33 Sodium 124 mmol/L (136-145) L 02/12/22 05:18 Potassium 6.6 mmol/L (3.5-5.1) H* 02/12/22 05:18 Chloride 74 mmol/L (98-107) L 02/12/22 05:18 Carbon Dioxide 3 mmol/L (22-29) L* 02/12/22 05:18 Anion Gap 53.6 (5-19) H 02/12/22 05:18 BUN 41 mg/dL (6-20) H 02/12/22 05:18 Creatinine 2.1 mg/dL (0.7-1.2) H 02/12/22 05:18 GFR Calculation 38.7 mL/min (90-130) L 02/12/22 05:18 Glucose 1263 mg/dL (65-115) H* 02/12/22 05:18 POC Glucose > 600 mg/dL (70-110) H* 02/12/22 05:17 Calculated Osmolality 333 mOsm/kg (285-295) H 02/12/22 05:18 Calcium 8.8 mg/dL (8.5-10.5) 02/12/22 05:18 Magnesium 3.1 mg/dL (1.7-2.3) H 02/12/22 05:18 Total Bilirubin 0.2 mg/dL (0.15-1.2) 02/12/22 05:18 AST 24 U/L (0-40) 02/12/22 05:18 ALT 37 U/L (0-41) 02/12/22 05:18 Alkaline Phosphatase 257 IU/L (40-130) H 02/12/22 05:18 Total Protein 6.4 g/dL (6.6-8.7) L 02/12/22 05:18 Albumin 4.3 g/dL (3.5-5.2) 02/12/22 05:18 Globulin 2.1 g/dL (1.3-4.6) 02/12/22 05:18 Lipase 59 U/L (13-60) 02/12/22 05:18 Serum Ketones Positive (Negative) H 02/12/22 05:18 Critical Care Time Critical Care Time: Critical Care Time: Yes Total Critical Care Time: 40 Attestation: This case had a high probability of a clinically significant, sudden, or life threatening deterioration of this patient's condition which required my full and direct attention, intervention and personal management. Time is independent of any procedures performed. Discharge Plan Discharge Patient Disposition: Admitted As Inpatient Clinical Impression: Altered mental status, DKA (diabetic ketoacidosis) Condition: Stable Coding Level of Care Code ED Framing Manager for Jazmín Fwpaige Exam Comprehensive
[2022-02-12] MEDS: sodium bicarbonate 8.4% 1 mEq/mL 50mL Syr 100 MEQ IVP (05:57)
[2022-02-12 05:59] LABS: Glucose 1263 mg/dL (65-115)
[2022-02-12 06:00] LABS: Slide Review Slide Review Perform
--- NOTE | 2022-02-12 06:00 | PC.NURSE ---
Critical glucose 1263. Dr Judge made aware
[2022-02-12 06:03] LABS: White Blood Count 36.7 10^3/uL (4.0-10.0)
[2022-02-12 06:47] LABS: Glucose Point of Care > 600 mg/dL (70-110)
[2022-02-12] MEDS: insulin regular-human 250 UNIT in sodium chloride 0.9% 250 ML 9.09 UNIT IV (06:51)
[2022-02-12 07:18] LABS: Add Urine Microscopic? NO; Charge for UA Resulting for Rev
[2022-02-12 07:24] LABS: Bilirubin Urine Neg (Negative); Blood Urine Neg (Negative); Glucose Urine UA 4+ (Normal); Ketones Urine 2+ (Negative); Leukocyte Esterase Urine Negative (Negative); Nitrate Urine Negative (Negative); Protein Urine Neg (Negative); Specific Gravity, Urine 1.015 (1.005-1.030); Urine Appearance Clear (CLEAR); Urine Color Straw (Yellow); Urobilinogen Urine Norm (Negative); pH Urine 5 (5-7)
--- NOTE | 2022-02-12 07:58 | PM.HP ---
Providers/Chief Complaint Admitting Physician: Daniel Mosley MD Primary Care Provider: Peace Brothers MD Chief Complaint: sob History of Present Illness Jean Miller is a 27 year old male presenting to the emergency department with vomiting. Patient has some difficulty giving history currently secondary to illness. He states his sugar has been high for 3 days and has been feeling ill. No fever. Has had repetitive vomiting. Is not sure when he last took his insulin. I could not really get an answer on whether he has any insulin at home. Denies any shortness of breath currently. Reports his abdominal discomfort he had is gone away. In the emergency department he received 4 L of saline, and was initiated on an insulin drip. He was also given 2 A of bicarb for a pH less than 6.9. Review of Systems General: Reports: 10 or more systems reviewed and unremarkable except in HPI and below Const: Denies: fever(s) or chills Eyes: Denies: change in vision ENMT: Denies: throat pain Card: Denies: chest pain Resp: Denies: dyspnea GI: Reports: nausea and vomiting; Denies: hematemesis, hematochezia or melena : Denies: flank pain Musc: Denies: neck pain Skin/Breast: Denies: rash Neuro: Denies: headache(s) Psych: Denies: anxiety or depression Endo: Denies: polyuria Basim/Lymph: Denies: easy bruising All/Imm: Denies: urticaria Medications/Allergies Home Medications Medication Instructions Recorded Confirmed Last Taken Type escitalopram oxalate 20 mg tablet 20 mg PO DAILY #30 tab 10/28/21 Unknown Rx insulin detemir U-100 100 unit/mL 22 unit (0.22 mL) SUBCUT DAILY #15 10/28/21 Unknown Rx (3 mL) subcutaneous pen ml insulin detemir U-100 100 unit/mL See Rx Instructions .ROUTE 10/28/21 Unknown Rx (3 mL) subcutaneous pen (Levemir .COMPLEX #15 ml FlexTouch U-100 Insulin) insulin regular human 100 unit/mL 12 unit (0.12 mL) SUBCUT AC #15 ml 10/28/21 Unknown Rx (3 mL) subcutaneous pen (Novolin R Flexpen) insulin regular human 100 unit/mL See Rx Instructions .ROUTE 10/28/21 10/27/21 Unknown Rx (3 mL) subcutaneous pen (Novolin R .COMPLEX #15 ml Flexpen) sodium di- and 1 tab PO DAILY #10 tab 10/28/21 Unknown Rx monophosphate-potassium phos monobasic 250 mg tablet (L-[id number]) Allergies Allergy/AdvReac Type Severity Reaction Status Date / Time No Known Allergies Allergy Verified 12/25/20 19:47 PFSH Acute PFSH: Medical History Diabetes type 1, uncontrolled History of DKA Long-term insulin use Surgical History No history of previous surgery none known Family History Other Family history unknown Social History Smoking and tobacco status: current every day smoker cigarettes Packs smoked per day: 1 Alcohol intake: never Current occupational status: employed Other PFSH information: Supplemental PFSH Information: Denies any significant family history. Denies any alcohol use. Hesitates and does not answer when I ask him about drug use initially, then reports he does not use any drugs. Vitals/I&O/Wt Last Vital Signs Temp 96.9 F L 02/12/22 05:18 Pulse 113 H 02/12/22 07:13 Resp 24 H 02/12/22 07:13 BP 137/101 02/12/22 07:13 Pulse Ox 100 02/12/22 07:13 02/11/22 02/12/22 02/12/22 22:59 06:59 14:59 Intake Total 3000 / 3000 Balance 3000 / 3000 Weight last 48 hrs Weight 58.967 kg Physical Exam Narrative: General exam is a white male, who reports he feels bad, but can answer a few questions HEENT: Pupils equally round. Oropharynx with dry mucous membranes Neck is supple no lymphadenopathy thyromegaly Cardiovascular tachycardic, no murmur Lungs clear no wheezing or crackles Abdomen is soft with positive bowel sounds. No obvious organomegaly exam is deferred Extremities no cyanosis clubbing or edema, cap refill brisk Skin no rash Neuro no obvious focal deficits. Data : 02/12/22 05:18 02/12/22 05:18 Other Labs: EKG demonstrates sinus tachycardia with a rate of 106 and left atrial enlargement demonstrated by biphasic P wave in V1. Some peaked T waves are noted. Initial ABG demonstrated a pH of 6.87, PCO2 17, PO2 59 Initial lactate 5.2 Magnesium 3.1 Lipase 59 Urinalysis 4+ glucose, 2+ ketones Serum ketones positive LFTs normal with exception of alk phos of 257 A&P Assessment and plan (1) DKA (diabetic ketoacidosis): Significant DKA with pH less than 6.9 on admission Received 2 A of bicarb in the emergency department as well as significant fluid resuscitation Continue normal saline at 150 cc an hour currently, and insulin drip Serial electrolyte monitoring including magnesium and phosphorus When blood sugar less than 250, changed to D5 half-normal saline with 20 mill equivalents of potassium chloride per liter if electrolytes appropriate Continue to monitor for resolution of anion gap metabolic acidosis Further interviews to follow regarding insulin Status: Acute (2) Acute kidney injury: Close follow-up of creatinine, for resolution of acute kidney injury Hold potassium containing fluids until serum potassium less than 5, and renal function improving Status: Acute Plan Leukocytosis. No evidence of bacterial infection currently. Continue to monitor Full code Low risk no VTE Protonix for GI prophylaxis Attestations Medical Necessity Statement*: Will need greater than 2 midnight stay for evaluation and treatment of DKA with pH less than 6.9 Critical Care Time: The high probability of a clinically significant, sudden or life threatening deterioration of the patient's [endocrine, renal system(s) required my full and direct attention, intervention and personal management. The critical care time is as shown. This time is in addition to time spent performing any reported procedures but includes the following: [x] Data and vital sign review and interpretation [x] Patient assessment, examination and intervention [x] Documentation [x] Medication orders and management Critical Care Time (min): 45 Coding Level of Care Code Acute Log Clerk for [facility] Fwpaige Diagnoses DKA (diabetic ketoacidosis) E11.10 Acute kidney injury N17.9
--- NOTE | 2022-02-12 07:59 | PC.NURSE ---
Arrived from ED, patient shivering and lethargic, AO x4, Dr. Carvajal at bedside gave v.o. to start D5 1/2 NS once glucose less than 250, notify HCP if Glucose drops more than 100 an hour
[2022-02-12 08:04] LABS: Glucose Point of Care > 600 mg/dL (70-110)
[2022-02-12] MEDS: sodium chloride 0.9% 1,000 ML 125 ML IV (08:11)
--- NOTE | 2022-02-12 08:12 | PC.NURSE ---
POC glucose read hi, Dr. Carvajal advised to use glucose on BMP until POC will read
[2022-02-12 08:44] LABS: Lactate (Lactic Acid level) 5.2 mmol/L (0.5-2.2)
[2022-02-12 08:50] LABS: Blood Urea Nitrogen 36 mg/dL (6-20); Calcium 8.1 mg/dL (8.5-10.5); Chloride 92 mmol/L (98-107); Osmolality Calculated 314 mOsm/kg (285-295); Sodium 132 mmol/L (136-145); Thyroid Stimulating Hormone 0.14 uIU/mL (0.27-4.20)
--- NOTE | 2022-02-12 09:05 | PC.CHAP ---
Pastoral Care Encounter/Spiritual Assessment Type of Contact [] Declined senior search marketing analyst visit [] Patient/Family/Request visit [] Outpatient visit [] Follow-up visit [] Physician referral [] Code/Alert [x] Routine visit [] Staff referral [] Actively dying [] Patient sleeping [] Family support [] [] Out of room [] Palliative care [] [] Receiving care in room [] Pre-surgical visit [] Trauma [] Long length of stay [x] ICU visit [] Other: Relational/Emotional Strength [] Patient feels connected with others/family/visitors/staff [] Distress [] Loneliness/isolation [] Abandonment Spirituality of Patient [] Person of Lea [] Attends Druze of their Lea [] Believes in Prayer [] Reads Bible or Taoist materials [] There are Spiritual issues to be addressed Rough Rounder Machine Interventions [x] Prayer [] Active listening [] Non-anxious presence [] Spiritual/emotional support [] Crisis/trauma care [] Spiritual counseling [] Bereavement support [] Provided bereavement packet [] Provided Bible/devotional materials [] Provided toy/stuffed animal, coloring book to patient or family member [] Provided Communion [] Anointing/[place] [] Salvation [x] Completed spiritual assessment [] Other: Impact on Illness or Injury [] Angry [] Fearful [] Anxious [] Often cries [] Exhaustion [] Unable to work [] Unable to attend restoration [] Unable to walk/stand [] Unable to read [] Unable to drive [] Unable to eat/drink [] Unable to sleep [] Unable to be with family [] Patient intubated [] Other: Summary Time spent with patient
[2022-02-12 09:09] LABS: Anion Gap 40.6 (5-19); Carbon Dioxide 4 mmol/L (22-29); Glucose 674 mg/dL (65-115); Potassium 4.6 mmol/L (3.5-5.1)
--- NOTE | 2022-02-12 09:24 | PC.NURSE ---
glucose on BMP dropped from 1163 to 674, Dr. Carvajal notified, insulin rate kept at current 9 units/hr instead of following protocol due to rapid decrease in glucose
[2022-02-12 09:25] LABS: Estmated Average Glucose 326
--- NOTE | 2022-02-12 10:06 | PC.PHAR ---
Addendum entered by Navya Schmidt 02/12/22 13:36: pts girlfrienpaige hutson states the pt uses 20 units daily levemir rx filled 01/26/22 22 units daily-pts girlfrienpaige hutson states the pt is not taking lexapro rx last filled 10/30/21 30 d/s Original Note: pt unable to verify medications-medications entered are [facility] ([facility]) states they had filled for the pt-called pts life partner caryl [phone] no answer-notes are made in the pharmacy comments
[2022-02-12 10:11] LABS: Glucose Point of Care 410 mg/dL (70-110)
--- NOTE | 2022-02-12 10:20 | PC.NURSE ---
POC glucose 410, Dr. Carvajal gave order to decrese rate to 5 units/hr
[2022-02-12] MEDS: D5-NS 0.45% + KCL 20 mEq 20 MEQ/1,000 ML BAG 125 MEQ IV ×2 (11:03→19:20)
--- NOTE | 2022-02-12 11:11 | PC.NURSE ---
blood glucose down to 284, Dr. Carvajal gave v.o. to start the ordered D5 1/2 ns
[2022-02-12 11:17] LABS: Glucose Point of Care 284 mg/dL (70-110)
[2022-02-12 12:02] LABS: Glucose Point of Care 343 mg/dL (70-110)
[2022-02-12 12:25] LABS: Free T4 Free Thyroxine 1.36 ng/dL (0.82-1.77)
[2022-02-12 12:56] LABS: Glucose Point of Care 390 mg/dL (70-110)
[2022-02-12 13:48] LABS: Anion Gap 21.7 (5-19); Blood Urea Nitrogen 27 mg/dL (6-20); Calcium 7.8 mg/dL (8.5-10.5); Carbon Dioxide 17 mmol/L (22-29); Chloride 106 mmol/L (98-107); Glomerular Filtration Rate 81.6 mL/min (90-130); Glucose 260 mg/dL (65-115); Osmolality Calculated 306 mOsm/kg (285-295); Phosphorus 1.6 mg/dL (2.5-4.5); Potassium 3.7 mmol/L (3.5-5.1); Sodium 141 mmol/L (136-145)
[2022-02-12 14:05] LABS: Glucose Point of Care 200 mg/dL (70-110)
[2022-02-12 15:02] LABS: Glucose Point of Care 166 mg/dL (70-110)
[2022-02-12 16:05] LABS: Glucose Point of Care 144 mg/dL (70-110)
[2022-02-12 16:05] LABS: Glucose Point of Care 338 mg/dL (70-110)
[2022-02-12 17:10] LABS: Glucose Point of Care 136 mg/dL (70-110)
--- NOTE | 2022-02-12 18:25 | PC.NURSE ---
UA on worklist, Lab notified this nurse it was collected in ED
[2022-02-12 18:33] LABS: Blood Urea Nitrogen 24 mg/dL (6-20); Calcium 8.4 mg/dL (8.5-10.5); Carbon Dioxide 19 mmol/L (22-29); Chloride 109 mmol/L (98-107); Glomerular Filtration Rate 117.8 mL/min (90-130); Glucose 125 mg/dL (65-115); Osmolality Calculated 296 mOsm/kg (285-295); Sodium 140 mmol/L (136-145)
[2022-02-12 19:32] LABS: Glucose Point of Care 81 mg/dL (70-110)
--- NOTE | 2022-02-12 20:03 | PC.NURSE ---
[address] Carvajal Glucose 81 Insulin gtt stopped Provide Pt with Carb constant diet see orders gap 16
[2022-02-12 20:26] LABS: Glucose Point of Care 154 mg/dL (70-110)
[2022-02-13] VITALS (19 sets, daily range): BP systolic 117–148; BP diastolic 72–101; PULSE 61–114; RESP 12–26; TEMP 36.7–37.1; O2SAT 94–98
[2022-02-13 01:45] LABS: Anion Gap 25.3 (5-19); Blood Urea Nitrogen 22 mg/dL (6-20); Carbon Dioxide 15 mmol/L (22-29); Chloride 100 mmol/L (98-107); Glomerular Filtration Rate 102.8 mL/min (90-130); Glucose 296 mg/dL (65-115); Magnesium 1.8 mg/dL (1.7-2.3); Osmolality Calculated 296 mOsm/kg (285-295); Phosphorus 2.1 mg/dL (2.5-4.5); Potassium 4.3 mmol/L (3.5-5.1); Sodium 136 mmol/L (136-145)
[2022-02-13] MEDS: insulin lispro 100 unit/1 mL 10 UNIT SUBCUT (02:22)
[2022-02-13] MEDS: lactated ringers 1,000 ML 999 ML IV (02:22)
[2022-02-13] MEDS: lactated ringers 1,000 ML 100 ML IV ×4 (03:06→22:35)
[2022-02-13 03:58] LABS: Basophils % 0.2 %; Hemoglobin 13.8 g/dL (11.7-16.6); Lymphocytes # 2.3 10^3/uL (0.8-4.8); Lymphocytes % 13.5 %; Mean Corpuscular HGB Conc 32.9 g/dL (30.0-36.0); Mean Corpuscular Hemoglobin 30.1 pg (28.0-34.0); Mean Corpuscular Volume 91.7 fl (80-94); Mean Platelet Volume 10.9 fL (7.4-10.4); Monocytes % 5.7 %; Neutrophils # 13.74 10^3/uL (1.8-7.7); Neutrophils % 79.8 %; Nucleated Red Blood Cells % 0 %; Platelet Count 295 10^3/cmm (130-400); Red Blood Count 4.58 10^6/uL (4.1-5.3); Red Cell Distribution Width 12.8 % (12.1-15.1); White Blood Count 17.2 10^3/uL (4.0-10.0)
[2022-02-13 04:29] LABS: Alanine Aminotransferase 23 U/L (0-41); Albumin Level 3.1 g/dL (3.5-5.2); Alkaline Phosphatase 116 IU/L (40-130); Anion Gap 20.7 (5-19); Aspartate Amino Transferase 15 U/L (0-40); Blood Urea Nitrogen 19 mg/dL (6-20); Calcium 8.9 mg/dL (8.5-10.5); Carbon Dioxide 18 mmol/L (22-29); Chloride 102 mmol/L (98-107); Globulin 2.3 g/dL (1.3-4.6); Glomerular Filtration Rate 117.8 mL/min (90-130); Glucose 226 mg/dL (65-115); Magnesium 1.8 mg/dL (1.7-2.3); Osmolality Calculated 293 mOsm/kg (285-295); Potassium 3.7 mmol/L (3.5-5.1); Sodium 137 mmol/L (136-145); Total Bilirubin 0.2 mg/dL (0.15-1.2); Total Protein 5.4 g/dL (6.6-8.7)
[2022-02-13] MEDS: potassium chloride ER 20 mEq Tablet 80 MEQ PO ×2 (06:12→10:01)
--- NOTE | 2022-02-13 06:50 | PC.NURSE ---
Bedside report completed with JENNIFER Lazaro
--- NOTE | 2022-02-13 07:35 | P.PN_ITS ---
Subjective Subjective: Jean reports he is doing okay this morning. He thinks he will be able to eat. Denies any vomiting. Still very sleepy. No abdominal pain, chest pain. Medications: Reviewed: Yes Vitals/I&O/Wt Last Vital Signs Temp 98.2 F 02/13/22 05:27 Pulse 105 H 02/13/22 06:00 Resp 19 H 02/13/22 06:00 BP 140/99 02/13/22 06:00 Pulse Ox 94 02/13/22 06:00 02/12/22 02/13/22 02/13/22 22:59 06:59 14:59 Intake Total 4613.9369 / 4792.8399 732.6 / 5525.4399 Output Total 2650 / 2650 850 / 3500 Balance 1963.9369 / 2142.8399 -117.4 / 5.4399 Weight last 48 hrs Weight 58.967 kg Weight 58.967 kg Physical Exam Narrative: General exam is a white male, sleepy, no distress Neck is supple no lymphadenopathy thyromegaly Cardiovascular tachycardic, no murmur Lungs clear no wheezing or crackles Abdomen is soft with positive bowel sounds. No obvious organomegaly exam is deferred Extremities no cyanosis clubbing or edema, cap refill brisk Skin no rash Neuro no obvious focal deficits. Data : 02/13/22 03:32 02/13/22 03:32 A&P Assessment and plan (1) DKA (diabetic ketoacidosis): Significant DKA with pH less than 6.9 on admission Received 2 A of bicarb in the emergency department as well as significant fluid resuscitation Transitioned off insulin drip last night, Opened back up slightly and he was given more insulin. Last BMP demonstrated an anion gap of 20. We will give 10 units of Lantus this morning, 5 units of short acting insulin with meals with mild sliding scale on top of this and await a BMP at 0800. If Continues to improve/close he can probably transition out of ICU. He is currently off his insulin drip. Secondary to the severity of his illness on presentation, acute kidney injury, continued sleepiness needs continued hospitalization. Also r eports he does not have a primary care provider or center customer service associate he is seeing currently and this will need to be looked into. Status: Acute (2) Acute kidney injury: Significantly improved Status: Acute Plan Leukocytosis. No evidence of bacterial infection currently. Continue to monitor Full code Low risk no VTE Protonix for GI prophylaxis Attestations Medical Necessity Statement*: Needs continued hospitalization secondary to persistent anion gap acidosis and DKA Coding Level of Care Code Acute Exchange Operator for Chg Fwd Diagnoses DKA (diabetic ketoacidosis) E11.10 Acute kidney injury N17.9
[2022-02-13 07:41] LABS: Glucose Point of Care 77 mg/dL (70-110)
[2022-02-13 07:41] LABS: Glucose Point of Care 86 mg/dL (70-110)
[2022-02-13 07:57] LABS: Glucose Point of Care 183 mg/dL (70-110)
[2022-02-13 09:04] LABS: Anion Gap 18.3 (5-19); Blood Urea Nitrogen 16 mg/dL (6-20); Calcium 8.5 mg/dL (8.5-10.5); Carbon Dioxide 22 mmol/L (22-29); Chloride 100 mmol/L (98-107); Creatinine Clr Calc Pharmacy 134.5477; Glomerular Filtration Rate 137.4 mL/min (90-130); Glucose 189 mg/dL (65-115); Osmolality Calculated 288 mOsm/kg (285-295); Potassium 4.3 mmol/L (3.5-5.1); Sodium 136 mmol/L (136-145)
[2022-02-13] MEDS: insulin glargine 100 units/1 mL 10 UNIT SUBCUT (10:01)
[2022-02-13] MEDS: pantoprazole DR 40 mg Tablet PO (10:01)
[2022-02-13] MEDS: insulin lispro 100 unit/1 mL SUBCUT ×6 (10:03→21:23)
[2022-02-13 11:53] LABS: Glucose Point of Care 266 mg/dL (70-110)
--- NOTE | 2022-02-13 12:02 | PC.NURSE ---
Report faxed to [employer].
--- NOTE | 2022-02-13 12:17 | PC.NURSE ---
[facility] returned call for report. Report given to JENNIFER Kelley. Meal in front of pt, will transfer when he is done eating.
--- NOTE | 2022-02-13 13:30 | PC.NURSE ---
Pt transferred to 262 via W/C. Personal belongings gathered and carried by family/friend.
[2022-02-13 15:31] LABS: Blood Urea Nitrogen 14 mg/dL (6-20); Calcium 8.3 mg/dL (8.5-10.5); Carbon Dioxide 22 mmol/L (22-29); Chloride 99 mmol/L (98-107); Creatinine Clr Calc Pharmacy 134.5477; Glomerular Filtration Rate 137.4 mL/min (90-130); Glucose 272 mg/dL (65-115); Osmolality Calculated 280 mOsm/kg (285-295); Sodium 130 mmol/L (136-145)
[2022-02-13 15:45] LABS: Anion Gap 13.7 (5-19); Potassium 4.7 mmol/L (3.5-5.1)
[2022-02-13 17:51] LABS: Glucose Point of Care 198 mg/dL (70-110)
[2022-02-13 20:40] LABS: Glucose Point of Care 144 mg/dL (70-110)
[2022-02-14 00:28] VITALS: BP 134/84; PULSE 87; RESP 16; TEMP 36.8; O2SAT 97
[2022-02-14 04:34] VITALS: BP 136/86; PULSE 80; RESP 16; TEMP 36.7; O2SAT 96
[2022-02-14 05:13] VITALS: PULSE 79
[2022-02-14 06:42] LABS: Glucose Point of Care 93 mg/dL (70-110)
[2022-02-14 06:44] LABS: Basophils % 0.2 %; Eosinophils % 0.3 %; Hematocrit 43.6 % (42.0-52.0); Hemoglobin 13.9 g/dL (11.7-16.6); Lymphocytes # 2.4 10^3/uL (0.8-4.8); Lymphocytes % 24.5 %; Mean Corpuscular HGB Conc 31.9 g/dL (30.0-36.0); Mean Corpuscular Hemoglobin 30.2 pg (28.0-34.0); Mean Corpuscular Volume 94.6 fl (80-94); Mean Platelet Volume 10.8 fL (7.4-10.4); Monocytes # 0.8 10^3/uL (0.2-0.9); Monocytes % 7.8 %; Neutrophils # 6.49 10^3/uL (1.8-7.7); Nucleated Red Blood Cells % 0 %; Platelet Count 248 10^3/cmm (130-400); Red Blood Count 4.61 10^6/uL (4.1-5.3); Red Cell Distribution Width 12.4 % (12.1-15.1); White Blood Count 9.7 10^3/uL (4.0-10.0)
[2022-02-14 07:13] LABS: Blood Urea Nitrogen 13 mg/dL (6-20); Calcium 9.2 mg/dL (8.5-10.5); Carbon Dioxide 25 mmol/L (22-29); Chloride 103 mmol/L (98-107); Glomerular Filtration Rate 202.6 mL/min (90-130); Glucose 100 mg/dL (65-115); Osmolality Calculated 284 mOsm/kg (285-295); Sodium 137 mmol/L (136-145)
[2022-02-14 07:21] LABS: Anion Gap 12.9 (5-19); Magnesium 1.7 mg/dL (1.7-2.3); Potassium 3.9 mmol/L (3.5-5.1)
[2022-02-14 08:00] VITALS: BP 128/88; PULSE 85; RESP 16; TEMP 36.4; O2SAT 98
[2022-02-14 08:16] VITALS: PULSE 80; RESP 16; O2SAT 96
[2022-02-14] MEDS: pantoprazole DR 40 mg Tablet PO (08:33)
[2022-02-14] MEDS: potassium chloride ER 20 mEq Tablet 80 MEQ PO (08:33)
[2022-02-14] MEDS: insulin lispro 100 unit/1 mL SUBCUT ×2 (08:35→11:04)
[2022-02-14] MEDS: lactated ringers 1,000 ML 100 ML IV (08:36)
--- NOTE | 2022-02-14 08:44 | PM.DCS ---
Discharge Providers Date of Admission: 02/12/22 08:04 Date of Discharge: February 14, 2022 Attending Provider at Admission: Daniel Mosley MD Attending Provider at Discharge: Ford Carvajal MD Primary Care Provider: Peace Brothers MD Diagnoses at Discharge Discharge Diagnosis (1) DKA (diabetic ketoacidosis): Status: Acute (2) Acute kidney injury: Status: Acute Reason for Visit Reason for Visit: sob Hospital Course Hospital Course Jean is a 27-year-old white male with type 1 diabetes who presented to the hospital with history of missing some insulin dose or doses in DKA with pH less than 6.9. He was vomiting. He received IV fluids, bicarbonate, and insulin drip in the emergency department and was transitioned over to the ICU. In the ICU insulin drip was continued, correction of electrolytes, until his anion gap closed and then he was started on a diet with long-acting insulin and sliding scale. He also had significant acute kidney injury present on admission which corrected during his hospital stay. By February 14 he was doing much better. Anion gap was still closed. He was able to eat without difficulty. Renal function was normal. 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 He has a plan should his sugar go low. He will resume his long-acting insulin 20 units at night. He will take 4 units of short acting insulin prior to meals, in addition to a mild sliding scale insulin. Physical Exam Narrative: General exam no distress Neck is supple no lymphadenopathy or thyromegaly Cardiovascular regular rate and rhythm without murmur Lungs clear Abdomen is soft with positive bowel sounds Extremities no cyanosis clubbing or edema Discharge Data Studies Completed and Pending Completed Studies During Hospitalization Category Date Time Status XR chest 1V portable [id number] Urgent Exams 02/12/22 05:22 Completed Radiology Impressions Chest X-Ray 02/12/22 05:22 IMPRESSION: No acute cardiopulmonary abnormality. Laboratory Results WBC 9.7 10^3/uL (4.0-10.0) 02/14/22 06:25 RBC 4.61 10^6/uL (4.1-5.3) 02/14/22 06:25 Hgb 13.9 g/dL (11.7-16.6) 02/14/22 06:25 Hct 43.6 % (42.0-52.0) 02/14/22 06:25 MCV 94.6 fl (80-94) H 02/14/22 06:25 MCH 30.2 pg (28.0-34.0) 02/14/22 06:25 MCHC 31.9 g/dL (30.0-36.0) 02/14/22 06:25 RDW 12.4 % (12.1-15.1) 02/14/22 06:25 Plt Count 248 10^3/cmm (130-400) 02/14/22 06:25 MPV 10.8 fL (7.4-10.4) H 02/14/22 06:25 Neut % (Auto) 67.0 % 02/14/22 06:25 Lymph % (Auto) 24.5 % 02/14/22 06:25 [place] % (Auto) 7.8 % 02/14/22 06:25 Eos % (Auto) 0.3 % 02/14/22 06:25 Baso % (Auto) 0.2 % 02/14/22 06:25 Neut # (Auto) 6.49 10^3/uL (1.8-7.7) 02/14/22 06:25 Lymph # (Auto) 2.4 10^3/uL (0.8-4.8) 02/14/22 06:25 [place] # (Auto) 0.8 10^3/uL (0.2-0.9) 02/14/22 06:25 Eos # (Auto) 0.0 10^3/uL (0.0-0.8) 02/14/22 06:25 Baso # (Auto) 0.0 10^3/uL (0.0-0.1) 02/14/22 06:25 Nucleated RBC % (auto) 0 % 02/14/22 06:25 Nucleated RBCs # 0.0 /100WBC 02/14/22 06:25 Specimen Type Arterial 02/12/22 05:33 Sample Site Radial, left 02/12/22 05:33 ABG pH 6.87 (7.35-7.45) L* 02/12/22 05:33 ABG pCO2 17.7 mmHg (35-45) L* 02/12/22 05:33 ABG pO2 59.2 mmHg (80.0-100.0) L 02/12/22 05:33 ABG HCO3 3.2 mmol/L (22-26) L 02/12/22 05:33 ABG Base Excess -29.2 mmol/L (-2.0-2.0) L 02/12/22 05:33 Bereket Test Pos 02/12/22 05:33 Hematocrit 45.0 % (42-52) 02/12/22 05:33 O2 Delivery Device None 02/12/22 05:33 Aircraft Structure Mechanic ID Hensa 02/12/22 05:33 Sodium 137 mmol/L (136-145) 02/14/22 06:25 Potassium 3.9 mmol/L (3.5-5.1) 02/14/22 06:25 Chloride 103 mmol/L (98-107) 02/14/22 06:25 Carbon Dioxide 25 mmol/L (22-29) 02/14/22 06:25 Anion Gap 12.9 (5-19) 02/14/22 06:25 BUN 13 mg/dL (6-20) 02/14/22 06:25 Creatinine 0.5 mg/dL (0.7-1.2) L 02/14/22 06:25 GFR Calculation 202.6 mL/min (90-130) H 02/14/22 06:25 Glucose 100 mg/dL (65-115) 02/14/22 06:25 POC Glucose 93 mg/dL (70-110) 02/14/22 06:36 Estimat Average Glucose 326 02/12/22 05:18 Hemoglobin A1c 13.0 % (4.0-6.0) H 02/12/22 05:18 Calculated Osmolality 284 mOsm/kg (285-295) L 02/14/22 06:25 Lactate 5.2 mmol/L (0.5-2.2) H* 02/12/22 08:00 Calcium 9.2 mg/dL (8.5-10.5) 02/14/22 06:25 Phosphorus 2.1 mg/dL (2.5-4.5) L 02/13/22 01:23 Magnesium 1.7 mg/dL (1.7-2.3) 02/14/22 06:25 Total Bilirubin 0.2 mg/dL (0.15-1.2) 02/13/22 03:32 AST 15 U/L (0-40) 02/13/22 03:32 ALT 23 U/L (0-41) 02/13/22 03:32 Alkaline Phosphatase 116 IU/L (40-130) 02/13/22 03:32 Total Protein 5.4 g/dL (6.6-8.7) L 02/13/22 03:32 Albumin 3.1 g/dL (3.5-5.2) L 02/13/22 03:32 Globulin 2.3 g/dL (1.3-4.6) 02/13/22 03:32 Lipase 59 U/L (13-60) 02/12/22 05:18 TSH 0.14 uIU/mL (0.27-4.20) L 02/12/22 08:00 Free T4 1.36 ng/dL (0.82-1.77) 02/12/22 01:30 Free T3 3.0 PG/ML (2.0-4.4) 02/12/22 01:30 Urine Color Straw (Yellow) 02/12/22 06:55 Urine Appearance Clear (CLEAR) 02/12/22 06:55 Urine pH 5 (5-7) 02/12/22 06:55 Ur Specific [place] 1.015 (1.005-1.030) 02/12/22 06:55 Urine Protein Neg (Negative) 02/12/22 06:55 Urine Glucose (UA) 4+ (Normal) H 02/12/22 06:55 Urine Ketones 2+ (Negative) H 02/12/22 06:55 Urine Blood Neg (Negative) 02/12/22 06:55 Urine Nitrate Negative (Negative) 02/12/22 06:55 Urine Bilirubin Neg (Negative) 02/12/22 06:55 Urine Urobilinogen Norm mg/dL (Negative) 02/12/22 06:55 Ur Leukocyte Esterase Negative (Negative) 02/12/22 06:55 Serum Ketones Positive (Negative) H 02/12/22 05:18 Vitals Last Vital Signs Temp 98.0 F 02/14/22 04:34 Pulse 80 02/14/22 08:16 Resp 16 02/14/22 08:16 BP 136/86 02/14/22 04:34 Pulse Ox 96 02/14/22 08:16 Discharge Plan Discharge Patient Disposition: Home Condition: Stable Prescriptions: Continued Novolin R Flexpen 100 unit/mL (3 mL) insulin pen See Rx Instructions .ROUTE .COMPLEX 0RF Rx Instructions: sliding scale subcutaneously with meals Levemir FlexTouch U-100 Insuln 100 unit/mL (3 mL) insulin pen 20 unit SUBCUT DAILY 0RF Discharge Orders: Discharge Order (Routine); Ordered 02/14/22 Ordered By: Ford Carvajal Referrals: Peace Brothers MD [Primary Care Provider] - 4-7 days Elmer Jones MD [Physician] - 4-7 days (Follow-up DKA, patient request for consideration of insulin pump) Discharge Diet: Diabetic Discharge Activity: Increase activity as tolerated Patient Instructions: Opioid Safety Activity Restrictions/Additional Instructions: Please take 4 units of short acting insulin before meals, in addition to mild sliding scale. Nursing to provide mild sliding scale instructions prior to discharge. Continue Levemir 20 units at night. Return for any concerns Keep follow-up Take all medicine as prescribed Discharge Attestations Time Spent in Discharge Care*: greater than 30 min Quality Metrics Clinical Quality Measures [ No reported AMI, CVA or VTE this stay] Coding Level of Care Code Acute g FW DC note Diagnoses DKA (diabetic ketoacidosis) E11.10 Acute kidney injury N17.9
[2022-02-14 08:48] VITALS: PULSE 80; RESP 16; O2SAT 96
--- NOTE | 2022-02-14 11:16 | PC.NURSE ---
RN EDUC PT AT LENGTHS OF THE IMPORTANCE OF HIM KEEPING HIS APPT ON 02/19 @ [address] GROVES. ALSO, EDUC ON SLIDING SCALE PER DR. ALEX REQUEST. PRINTED EDUC ALSO GIVEN WITH D/C PAPERWORK. HE VERBALIZED COMPLETE UNDERSTANDING OF EDUC.
== END 2022-02-14 11:20 | disposition home or self-care (01) | DRG 638 ==
LOC: ER 06:03 → ICU 07:04 → MEDSURG 02-13 13:31
PROVIDERS: Admitting Provider Internal Medicine; Emergency Provider Emergency Medicine; PCP Family Medicine; Visit Provider Internal Medicine
DX: E10.10 Type 1 diabetes mellitus with ketoacidosis without coma (principal); N17.9 Acute kidney failure, unspecified; F17.210 Nicotine dependence, cigarettes, uncomplicated
CPT/HCPCS: 36415; 36416; 36600; 71045; 80048; 80053; 81003; 82009; 82803; 82962; 83036; 83605; 83690; 83735; 84100; 84439; 84443; 84481; 85025; 93005; 96365; 96372; 96375; 99285; J1815 ×2; J2405; J7030; J7050

== ENCOUNTER 2022-03-06 01:49 | Inpatient (IN) | payer BC, MEDICAID, SELFPAY ==
[2022-03-06] VITALS (41 sets, daily range): BP systolic 125–169; BP diastolic 81–128; PULSE 92–124; RESP 6–26; TEMP 35.8–37.2; O2SAT 96–100; BMI 16.5
--- NOTE | 2022-03-06 01:53 | W.ED.GENADLT ---
HPI - General Adult General: Chief complaint: General Medical Stated complaint: DKA Time Seen by Provider: 03/06/22 01:52 History of Present Illness: Mr. Miller is a 27-year-old gentleman with significant past medical history of poorly controlled type 1 diabetes who presents to the emergency department due to generalized illness and concern over DKA. He provides mildly limited history however overall endorses feeling worse for a few days now. He endorses nausea vomiting and generalized malaise. Overall course of symptoms has been worsening. Intensity is severe. He has had similar episodes in past. He denies focal source of infection or trauma. He has not been taking his insulin. No other specific changes in health, exacerbating, or alleviating factors identified. For information provided by family upon their arrival patient had been doing well and then symptoms started at approximately 6 PM. No infectious symptoms reported. Patient apparently has a insulin pump that has been ready to wear but has not been put on for approximately 1 and half years. Family feels that they have not been well supported with regards to follow-up or further instructions regarding care of the patient's diabetes. Onset (ago): day(s) Severity: severe Associated symptoms: Reports nausea and vomiting Review of Systems General: Reports: 10 or more systems reviewed and unremarkable except in HPI and below GI: Reports: nausea and vomiting PFSH ED PFSH: Medical History Diabetes type 1, uncontrolled History of DKA Long-term insulin use Surgical History No history of previous surgery none known Family History Other Family history unknown Social History Smoking and tobacco status: current every day smoker cigarettes Packs smoked per day: 1 Alcohol intake: never Current occupational status: employed Physical Exam Const: COMMON NORMALS: alert GENERAL APPEARANCE: cooperative, well developed, ill appearing and other (Mildly somnolent/encephalopathic.) HENMT: COMMON NORMALS: normocephalic and atraumatic HEAD & SCALP: normocephalic and atraumatic THROAT: posterior oropharynx normal and other (Dry mucous membranes) Eye: COMMON NORMALS: conjunctivae normal CONJUNCTIVA: Yes conjunctivae normal SCLERA: sclerae normal Neck/C-Spine: COMMON NORMALS: supple GENERAL: Yes trachea midline Resp: COMMON NORMALS: clear to auscultation bilaterally EFFORT & INSPECTION: Yes able to speak in complete sentences, Yes tachypneic and Yes other AUSCULTATION: clear to auscultation bilaterally Cardio: COMMON NORMALS: regular rhythm RATE: tachycardic RHYTHM: regular rhythm OTHER: Mildly delayed cap refill GI: COMMON NORMALS: Soft to palpation PALPATION: Yes Soft to palpation and No Tenderness to palpation present (GI) PERCUSSION: normal to percussion Extremity: GENERAL: Yes normal exam except as noted and No edema Neuro: COMMON NORMALS: moves all extremities SENSORIUM/ORIENTATION: Yes alert and No Orientation impaired Psych: COMMON NORMALS: mental status grossly normal and Normal thought process present THOUGHT PROCESS: Normal thought process present Course ED course: - Patient was seen and evaluated by me at bedside - Patient placed on cardiac monitors, IV access obtained - Initial evaluation notable for ill appearance, kussmaul respirations, mildly encephalopathic. - 2 L IV fluids ordered -ABG 7.08/7.9/142 - Labs and xrays personally interpreted by me. EKG reviewed by me showing sinus tachycardia with prominent T waves. - Labs notable for leukocytosis 24.7, normal hemoglobin. Metabolic panel notable for sodium 129, potassium 6.1, chloride 82, bicarb 4, anion gap 49.1, BUN 29, creatinine 1.4, glucose 838. Lactic is elevated at 4.2. Mild transaminitis likely secondary to overall critical illness. Ketones positive. - Imaging notable for no lobar consolidation or pneumothorax. Head CT negative. - Patient initiated on insulin drip. Initial rate 0.1 units/kg/h. Plan for every hour checks with contact physician ordered for drop greater than 100 over 1 hour. Additionally plan to contact physician once blood glucose reaches 250 for halving rate and initiation of dextrose containing solution. - Upon serial reexamination after treatment the patient was mildly improved - Based on patient history, evaluation, and testing as interpreted the most likely cause of the patient's condition is diabetic ketoacidosis - The results of ED evaluation were discussed with the patient including plan for admission due to requirement for level of care not available if discharged to prevent significant worsening/deterioration. - Admitting service was contacted and Dr Mederos with the hospitalist service agreed to admit the patient - Patient was admitted without further deterioration or significant events. Note: Click bubbles or prepopulated victor in note writing are used for assistance with data collection and billing and are inherently more limited than narrative and other text portions of this note. Please use narrative for additional clinical history and defer to narrative/free test for any case of contradictory information. If information appears in only free text or click bubble it should be considered present or absent as reported. Please contact note sheet writer for clarifications of clinical information or contradictory information. MDM is a brief summary, contradictory or erroneous seeming information should be clarified and full note should be reviewed. Vital Signs: Vital signs: Vital Signs Temperature 96.4 F L 03/06/22 01:53 Pulse Rate 121 H 03/06/22 03:51 Respiratory Rate 26 H 03/06/22 03:51 Blood Pressure 144/105 03/06/22 03:51 Pulse Oximetry 97 03/06/22 03:51 MDM - General Adult Medical Decision Making 27-year-old gentleman with type 1 diabetes poorly controlled presenting to the emergency department with altered mental status, nausea, vomiting. Patient found to have DKA. Patient fluid resuscitated with 2 L crystalloid and initiated on insulin drip. Admitted to ICU for further management. Medical Records I reviewed the patient's medical records. Lab Data I reviewed the patient's lab results. : 03/06/22 02:06 03/06/22 02:[address] 03/06/22 03:05 IMPRESSION: 1. No acute intracranial hemorrhage or mass effect. 2. No definite acute infarct by CT, see above. 3. Other findings discussed above. 4. Some limitations due to artifact from patient motion. Laboratory Results WBC 24.7 10^3/uL (4.0-10.0) H 03/06/22 02:06 RBC 4.98 10^6/uL (4.1-5.3) 03/06/22 02:06 Hgb 15.1 g/dL (11.7-16.6) 03/06/22 02:06 Hct 49.3 % (42.0-52.0) 03/06/22 02:06 MCV 99.0 fl (80-94) H 03/06/22 02:06 MCH 30.3 pg (28.0-34.0) 03/06/22 02:06 MCHC 30.6 g/dL (30.0-36.0) 03/06/22 02:06 RDW 13.1 % (12.1-15.1) 03/06/22 02:06 Plt Count 393 10^3/cmm (130-400) 03/06/22 02:06 MPV 11.6 fL (7.4-10.4) H 03/06/22 02:06 Neut % (Auto) 83.2 % 03/06/22 02:06 Lymph % (Auto) 9.3 % 03/06/22 02:06 [place] % (Auto) 5.0 % 03/06/22 02:06 Eos % (Auto) 0.0 % 03/06/22 02:06 Baso % (Auto) 0.7 % 03/06/22 02:06 Neut # (Auto) 20.57 10^3/uL (1.8-7.7) H 03/06/22 02:06 Lymph # (Auto) 2.3 10^3/uL (0.8-4.8) 03/06/22 02:06 [place] # (Auto) 1.2 10^3/uL (0.2-0.9) H 03/06/22 02:06 Eos # (Auto) 0.0 10^3/uL (0.0-0.8) 03/06/22 02:06 Baso # (Auto) 0.2 10^3/uL (0.0-0.1) H 03/06/22 02:06 Nucleated RBC % (auto) 0.1 % 03/06/22 02:06 Nucleated RBCs # 0.0 /100WBC 03/06/22 02:06 Specimen Type Arterial 03/06/22 02:08 Sample Site Brachial, right 03/06/22 02:08 ABG pH 7.08 (7.35-7.45) L* 03/06/22 02:08 ABG pCO2 7.9 mmHg (35-45) L* 03/06/22 02:08 ABG pO2 142.0 mmHg (80.0-100.0) H 03/06/22 02:08 ABG HCO3 2.4 mmol/L (22-26) L 03/06/22 02:08 ABG Base Excess -25.1 mmol/L (-2.0-2.0) L 03/06/22 02:08 Bereket Test Pos 03/06/22 02:08 Hematocrit 45.6 % (42-52) 03/06/22 02:08 O2 Delivery Device None 03/06/22 02:08 Supervisor Inspection ID Brent 03/06/22 02:08 Sodium 129 mmol/L (136-145) L 03/06/22 02:06 Potassium 6.1 mmol/L (3.5-5.1) H 03/06/22 02:06 Chloride 82 mmol/L (98-107) L 03/06/22 02:06 Carbon Dioxide 4 mmol/L (22-29) L* 03/06/22 02:06 Anion Gap 49.1 (5-19) H 03/06/22 02:06 BUN 29 mg/dL (6-20) H 03/06/22 02:06 Creatinine 1.4 mg/dL (0.7-1.2) H 03/06/22 02:06 GFR Calculation 61.7 mL/min (90-130) L 03/06/22 02:06 Glucose 838 mg/dL (65-115) H* 03/06/22 02:06 POC Glucose 565 mg/dL (70-110) H* 03/06/22 03:24 Calculated Osmolality 315 mOsm/kg (285-295) H 03/06/22 02:06 Lactate 4.2 mmol/L (0.5-2.2) H* 03/06/22 02:06 Calcium 9.1 mg/dL (8.5-10.5) 03/06/22 02:06 Phosphorus 8.1 mg/dL (2.5-4.5) H* 03/06/22 02:06 Magnesium 2.7 mg/dL (1.7-2.3) H 03/06/22 02:06 Total Bilirubin 0.2 mg/dL (0.15-1.2) 03/06/22 02:06 AST 44 U/L (0-40) H 03/06/22 02:06 ALT 88 U/L (0-41) H 03/06/22 02:06 Alkaline Phosphatase 201 IU/L (40-130) H 03/06/22 02:06 Total Protein 7.2 g/dL (6.6-8.7) 03/06/22 02:06 Albumin 4.5 g/dL (3.5-5.2) 03/06/22 02:06 Globulin 2.7 g/dL (1.3-4.6) 03/06/22 02:06 Lipase 12 U/L (13-60) L 03/06/22 02:06 Urine Color Yellow (Yellow) 03/06/22 02:35 Urine Appearance Clear (CLEAR) 03/06/22 02:35 Urine pH 5 (5-7) 03/06/22 02:35 Ur Specific [place] 1.020 (1.005-1.030) 03/06/22 02:35 Urine Protein Trace (Negative) 03/06/22 02:35 Urine Glucose (UA) 4+ (Normal) H 03/06/22 02:35 Urine Ketones 3+ (Negative) H 03/06/22 02:35 Urine Blood Neg (Negative) 03/06/22 02:35 Urine Nitrate Negative (Negative) 03/06/22 02:35 Urine Bilirubin Neg (Negative) 03/06/22 02:35 Urine Urobilinogen Norm mg/dL (Negative) 03/06/22 02:35 Ur Leukocyte Esterase Negative (Negative) 03/06/22 02:35 Urine RBC 0-4 /hpf (0-2) H 03/06/22 02:35 Urine WBC 0-4 /hpf (0-5) H 03/06/22 02:35 Ur Squamous Epith Cells 0-4 /hpf (0-5) H 03/06/22 02:35 Amorphous Sediment Not Reportable 03/06/22 02:35 Urine Bacteria None /hpf (NONE) 03/06/22 02:35 Urine Mucus N /hpf 03/06/22 02:35 Salicylates 0.7 mg/dL (3-10) L 03/06/22 02:06 Acetaminophen < 5.0 ug/mL (10-30) L 03/06/22 02:06 Ethyl Alcohol < 10 mg/dL (0-10) 03/06/22 02:06 Serum Ketones Positive (Negative) H 03/06/22 02:06 Critical Care Time Critical Care Time: Critical Care Time: Yes Total Critical Care Time: 50 Attestation: Due to a high probability of clinically significant, possibly life threatening deterioration, the patient required my highest level of attention and preparedness to intervene emergently and I personally spent this critical care time directly and personally managing the patient. This critical care time included obtaining a history; examining the patient; pulse oximetry; ordering and review of laboratory and imaging studies; arranging urgent treatment with development of a management plan; evaluation of patient's response to treatment; frequent reassessment; and, discussions with other providers as applicable. It was exclusive of separately billable procedures. Primary system involved is endocrine Discharge Plan Discharge Patient Disposition: Admitted As Inpatient Clinical Impression: Diabetic ketoacidosis, Acute kidney injury, Encephalopathy Condition: Stable Coding Level of Care Code ED Shopping Centre Manager for Jazmín Fwd Exam Comprehensive
--- NOTE | 2022-03-06 01:54 | ECG_ITS ---
[facility] Test Date: 2022-03-06 Pat Name: Jean Miller Department: Room: [facility] Gender: Male Ultrasound Technician: : 1995 Requested By: Garo Frausto Order Number: [id number] Remy MD: Bishnu Dennis M.D. Measurements Intervals [place] Rate: 117 P: 79 IL: 170 QRS: 58 QRSD: 88 T: 71 QT: 325 QTc: 455 Interpretive Statements SINUS TACHYCARDIA POSSIBLE RIGHT ATRIAL ENLARGEMENT [0.25mV P-WAVE] POSSIBLE LEFT ATRIAL ENLARGEMENT [-0.1mV P-WAVE IN V1/V2] ABNORMAL RHYTHM ECG Compared to ECG 02/12/2022 05:14:01 No significant changes Electronically Signed On 03-06-2022 18:45:50 CDT by Bishnu Dennis M.D. [id number]
[2022-03-06 02:13] LABS: Basophils # 0.2 10^3/uL (0.0-0.1); Basophils % 0.7 %; Hematocrit 49.3 % (42.0-52.0); Hemoglobin 15.1 g/dL (11.7-16.6); Lymphocytes # 2.3 10^3/uL (0.8-4.8); Lymphocytes % 9.3 %; Mean Corpuscular HGB Conc 30.6 g/dL (30.0-36.0); Mean Corpuscular Hemoglobin 30.3 pg (28.0-34.0); Mean Platelet Volume 11.6 fL (7.4-10.4); Monocytes # 1.2 10^3/uL (0.2-0.9); Neutrophils # 20.57 10^3/uL (1.8-7.7); Neutrophils % 83.2 %; Nucleated Red Blood Cells % 0.1 %; Platelet Count 393 10^3/cmm (130-400); Red Blood Count 4.98 10^6/uL (4.1-5.3); Red Cell Distribution Width 13.1 % (12.1-15.1); White Blood Count 24.7 10^3/uL (4.0-10.0)
[2022-03-06] MEDS: sodium chloride 0.9% 1,000 ML 999 ML IV ×2 (02:13→03:29)
--- NOTE | 2022-03-06 02:15 | XRR_ITS ---
PROCEDURE INFORMATION: Exam: XR Chest Exam date and time: 03/06/2022 2:34 AM Age: 27 years old Clinical indication: Dyspnea; Additional info: SOB, tachycardia TECHNIQUE: Imaging protocol: XR of the chest. Views: 1 view. COMPARISON: CR (CHEST, ) 02/12/2022 5:43 AM FINDINGS: Lungs: No CHF/pulmonary edema. Visible lungs appear essentially clear. Pleural spaces: No visible pneumothorax. No definite pleural fluid. Heart/Mediastinum: Heart size is within normal limits. Bones/joints: No significant acute finding. XR/XR chest 1V portable [id number] IMPRESSION: 1. Essentially unremarkable single view chest. 2. Other findings discussed above.
[2022-03-06 02:21] LABS: Arterial Blood Gas Hematocrit 45.6 % (42-52); Base Excess ABG -25.1 mmol/L (-2.0-2.0); Blood Gas Allen Test Pos; Blood Gas Sample Site Brachial, right; Blood Gas Sample Type Arterial; HCO3 ABG 2.4 mmol/L (22-26)
[2022-03-06 02:22] LABS: Ketone (Acetest) Serum Positive (Negative)
[2022-03-06 02:22] LABS: ABG PH Result 7.08 (7.35-7.45)
[2022-03-06 02:23] LABS: ABG PCO2 7.9 mmHg (35-45)
[2022-03-06 02:34] LABS: Alanine Aminotransferase 88 U/L (0-41); Albumin Level 4.5 g/dL (3.5-5.2); Alkaline Phosphatase 201 IU/L (40-130); Anion Gap 49.1 (5-19); Aspartate Amino Transferase 44 U/L (0-40); Blood Urea Nitrogen 29 mg/dL (6-20); Calcium 9.1 mg/dL (8.5-10.5); Chloride 82 mmol/L (98-107); Globulin 2.7 g/dL (1.3-4.6); Glomerular Filtration Rate 61.7 mL/min (90-130); Lipase 12 U/L (13-60); Magnesium 2.7 mg/dL (1.7-2.3); Potassium 6.1 mmol/L (3.5-5.1); Salicylate 0.7 mg/dL (3-10); Sodium 129 mmol/L (136-145); Total Bilirubin 0.2 mg/dL (0.15-1.2); Total Protein 7.2 g/dL (6.6-8.7)
[2022-03-06 02:42] LABS: Osmolality Calculated 315 mOsm/kg (285-295)
[2022-03-06 02:47] LABS: Acetaminophen < 5.0 ug/mL (10-30); Alcohol Level < 10 mg/dL (0-10)
[2022-03-06 02:48] LABS: Carbon Dioxide 4 mmol/L (22-29)
[2022-03-06 02:49] LABS: Glucose 838 mg/dL (65-115); Lactate (Lactic Acid level) 4.2 mmol/L (0.5-2.2); Phosphorus 8.1 mg/dL (2.5-4.5)
--- NOTE | 2022-03-06 03:05 | CTR_ITS ---
PROCEDURE INFORMATION: Exam: CT Head Without Contrast Exam date and time: 03/06/2022 3:35 AM Age: 27 years old Clinical indication: Altered mental status/memory loss; Confusion or disorientation; Additional info: AMS TECHNIQUE: Imaging protocol: Computed tomography of the head without contrast. Radiation optimization: All CT scans at this facility use at least one of these dose optimization techniques: automated exposure control; mA and/or kV adjustment per patient size (includes targeted exams where dose is matched to clinical indication); or iterative reconstruction. COMPARISON: CT head wo con* [id number] 10/26/2021 5:17 PM RADIATION DOSE METRICS: Total DLP (mGy-cm): 936.57 FINDINGS: Brain: No acute intracranial hemorrhage or mass effect. No definite acute infarct by CT. MRI could be more sensitive/specific for detection, as clinically directed. Cerebral ventricles: Ventricle size is normal for age. Paranasal sinuses: Included paranasal sinuses are essentially clear. Mastoid air cells: There is poor development/sclerosis of the left mastoid air cells, possibly a sequela of prior/chronic mastoiditis. No significant change. Bones/joints: No definite acute skull fracture. Soft tissues: No significant acute finding. CT/CT head wo con* [id number] IMPRESSION: 1. No acute intracranial hemorrhage or mass effect. 2. No definite acute infarct by CT, see above. 3. Other findings discussed above. 4. Some limitations due to artifact from patient motion.
[2022-03-06 03:31] LABS: Add Urine Culture? No; Add Urine Microscopic? YES; Bilirubin Urine Neg (Negative); Blood Urine Neg (Negative); Glucose Urine UA 4+ (Normal); Ketones Urine 3+ (Negative); Leukocyte Esterase Urine Negative (Negative); Mucus Urine N /hpf; Nitrate Urine Negative (Negative); Protein Urine Trace (Negative); RBC Urine 0-4 /hpf (0-2); Squamous Epithelial Cell Urine 0-4 /hpf (0-5); Urine Appearance Clear (CLEAR); Urine Color Yellow (Yellow); Urobilinogen Urine Norm (Negative); WBC Urine 0-4 /hpf (0-5); pH Urine 5 (5-7)
--- NOTE | 2022-03-06 03:31 | PC.NURSE ---
patient transported to ct via stretcher with no difficulties.
[2022-03-06 03:35] LABS: Glucose Point of Care 565 mg/dL (70-110)
[2022-03-06] MEDS: insulin regular-human 250 UNIT in sodium chloride 0.9% 250 ML 5.25 UNIT IV (03:45)
[2022-03-06] MEDS: sodium chloride 0.9% 1,000 ML 125 ML IV (03:51)
--- NOTE | 2022-03-06 04:24 | P.HP_ITS ---
Providers/Chief Complaint Admitting Physician: Barbie Mederos DO Primary Care Provider: Peace Brothers MD Chief Complaint: DKA History of Present Illness The patient is a 27-year-old male with known history of medical noncompliance and recurrent admissions for DKA who presents with chief complaint of DKA. During my encounter with the patient he is somnolent and requires frequent arous al. When I do arouse him, he is minimally cooperative. Unfortunately because of this, I am unable to obtain further history of present illness. He presents for further evaluation Review of Systems General: Reports: 10 or more systems reviewed and unremarkable except in HPI and below Medications/Allergies Home Medications Medication Instructions Recorded Confirmed Last Taken Type insulin detemir U-100 100 unit/mL 20 unit SUBCUT DAILY 02/12/22 02/19/22 Unknown History (3 mL) subcutaneous pen (Levemir FlexTouch U-100 Insulin) insulin regular human 100 unit/mL See Rx Instructions .ROUTE .COMPLEX 02/12/22 02/19/22 Unknown History (3 mL) subcutaneous pen (Novolin R Flexpen) Allergies Allergy/AdvReac Type Severity Reaction Status Date / Time No Known Allergies Allergy Verified 02/19/22 09:12 PFSH Acute PFSH: Medical History Diabetes type 1, uncontrolled History of DKA Long-term insulin use Surgical History No history of previous surgery none known Family History Other Family history unknown Social History Smoking and tobacco status: current every day smoker cigarettes Packs smoked per day: 1 Alcohol intake: never Current occupational status: employed Vitals/I&O/Wt Last Vital Signs Temp 97.9 F 03/06/22 04:09 Pulse 118 H 03/06/22 04:09 Resp 22 H 03/06/22 04:09 BP 169/117 03/06/22 04:09 Pulse Ox 99 03/06/22 04:09 03/05/22 03/05/22 03/06/22 14:59 22:59 06:59 Intake Total 1000 / 1000 Balance 1000 / 1000 Weight last 48 hrs Weight 52.163 kg Physical Exam Narrative: General: -Alert -No acute distress -No dyspnea -No tachypnea Head: -Atraumatic -Normocephalic Eyes: -Pupils equally round and reactive to light and accommodation -Extraocular muscles intact Neurological: -Cranial nerves II-XII intact Neck: -No jugular venous distention -No thyromegaly -No cervical lymphadenopathy Heart: -Regular rate -Regular rhythm -No murmurs -No gallops -No rubs Lungs: -No wheeze -No rhonchi -No rales ? Abdomen: -Normal bowel sounds in all four quadrants -No rebound -No guarding -No tenderness Extremities: -2/4 pulse in all four extremities -No clubbing -No cyanosis -No edema -No calf tenderness present bilaterally -Negative Dean?s sign bilaterally Musculoskeletal: -5/5 bilateral upper extremity strength -5/5 bilateral lower extremity strength -Sensorium of bilateral upper extremities are equal and intact -Sensorium of bilateral lower extremities are equal and intact ? Additional Details / Additional Findings / Exceptions / Miscellaneous: Data : 03/06/22 02:06 03/06/22 02:06 Micro: Microbiology 03/06/22 03:55 Blood Culture - Preliminary Blood SPECIMEN COLLECTED 03/06/22 02:06 Blood Culture - Preliminary Blood SPECIMEN COLLECTED A&P Assessment and plan (1) Diabetic ketoacidosis: Status: Acute Plan Diabetes with DKA. CMP every 4 hours. Will check fasting glucose hourly. IV insulin drip per protocol plus IV normal saline +75 MDQ sodium bicarbonate at 2 00 ML's per hour. An order has been provided for the nursing staff to notify the doctor once the patient's serum glucose is less than 130 Transaminitis. This may be a sequelae of dehydration/rhabdomyolysis. Creatine kinase level pending. Will monitor LFTs every 4 hours with CMP. IV normal sali ne +75 MDQ sodium bicarbonate at 200 ML's per hour Acute renal insufficiency. Will monitor creatinine with CMP every 4 hours. IV normal saline +75 MDQ sodium bicarbonate at 200 ML's per hour Hyperkalemia. Will monitor potassium level every 4 hours with CMP and correct as necessary. Telemetry monitoring. IV normal saline +75's MDQ sodium bicarbonate at 200 ML's per hour Hypomagnesemia. Will monitor magnesium level intermittently Hyperphosphatemia. Will monitor phosphorus level intermittently and correct as necessary Macrocytosis. Currently pending: TSH, free T4, B12, folate level Smoker. The patient will be counseled regarding smoking cessation Polysubstance abuse. Urine drug screen pending Depression History of iron deficiency. Currently pending: Serum ferritin, iron panel. The patient is still iron overloaded, will need to check patient's: C282Y and H63D. Patient will require referral to hematology/oncology upon discharge Hyperthyroidism. Recheck of TSH and free T4 pending. Thyroid ultrasound pending. Also pending: Thyroid stimulating immunoglobulin, anti-thyroglobulin antibody, antithyroid peroxidase antibody. Once patient is stable, I recommend initiating Tapazole 5 Mill grams by mouth every 8 hours however I have seen methamphetamine abusers who are hyperthyroid because of their drug use History of leaving AGAINST MEDICAL ADVICE Medical noncompliance. The patient will need to be counseled regarding medical compliance DVT Proflex is. 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
[2022-03-06 04:38] LABS: Glucose Point of Care 514 mg/dL (70-110)
--- NOTE | 2022-03-06 04:42 | US_ITS ---
WS: [id number] THYROID ULTRASOUND (TI-RADS CRITERIA) History: Hypothyroidism. Technique: Ultrasound examination of the thyroid and adjacent soft tissues is performed. FINDINGS: Right lobe: 5.3 cm x 1.5 cm x 2.1 cm. Volume: 8.8 cm3. Mildly prominent gland. There is a single mixed echogenicity nodule in the superior lobe RIGHT thyroi d gland, see below for further details. Lymph nodes: None. NODULE: 1 Size: 1.1 x 1.1 x 1.4 cm. Location: Superior thyroid. Composition: Mixed cystic and solid (1); mural lobulated nodule surrounded by fluid. There are a few septations also within the fluid. Marked increased vascularity. Echogenicity: Hypoechoic (2) Shape: Not taller than wide (0) Margins: Smooth (0) Echogenic foci: None (0) ACR TI-RADS total points: 3 ACR TI-RADS risk category: TR4 Left lobe: 5.3 cm x 1.6 cm x 1.7 cm. Volume: 7.2 cm3. Normal size and echotexture. No significant or dominant nodules are present. Lymph nodes: None. Isthmus: 0.3 cm. US/US thyroid [id number] Impression: TR4; mural nodule superior pole RIGHT thyroid. Recommendation:Complex nodule within the superior lobe of the RIGHT thyroid. Th is is a mural nodule with lobulated margins and marked increased vascularity. M oderately suspicious for neoplasm. Ultrasound-guided FNA versus surgical remova l.
--- NOTE | 2022-03-06 04:51 | PC.NURSE ---
Patient admitted to ICU 3 from Emergency Dept. Transported with portable monitoring on [facility] by RN. Patient ST with HR 120 Hypertensive 155/109. Blood glucose 514. Insulin drip running at 5.2 gtt. Normal saline 125ml/Hr. Patient is lethargic. Responds to light pain. Difficulty arousing.
[2022-03-06 05:17] LABS: Amphetamines Screen Urine Positive (Negative); Barbiturates Screen Urine Negative (Negative); Benzodiazepines Screen Urine Negative (Negative); Cocaine Screen Urine Negative (Negative); Opiate Screen Urine Negative (Negative); PCP Screen Urine Negative (Negative); THC Screen Urine Negative (Negative)
--- NOTE | 2022-03-06 05:23 | PC.NURSE ---
Patient too lethargic to answer questions for assessment.
[2022-03-06] MEDS: insulin regular-human 250 UNIT in sodium chloride 0.9% 250 ML 13.74 UNIT IV (05:26)
[2022-03-06 05:56] LABS: Glucose Point of Care 266 mg/dL (70-110)
[2022-03-06 06:52] LABS: Basophils # 0.1 10^3/uL (0.0-0.1); Basophils % 0.2 %; Hematocrit 42.7 % (42.0-52.0); Hemoglobin 14.1 g/dL (11.7-16.6); Lymphocytes # 2.8 10^3/uL (0.8-4.8); Mean Corpuscular Hemoglobin 30.5 pg (28.0-34.0); Mean Corpuscular Volume 92.2 fl (80-94); Mean Platelet Volume 10.4 fL (7.4-10.4); Monocytes # 1.3 10^3/uL (0.2-0.9); Monocytes % 5.1 %; Neutrophils # 20.88 10^3/uL (1.8-7.7); Neutrophils % 82.2 %; Nucleated Red Blood Cells % 0 %; Platelet Count 349 10^3/cmm (130-400); Red Blood Count 4.63 10^6/uL (4.1-5.3); Red Cell Distribution Width 13.2 % (12.1-15.1); White Blood Count 25.4 10^3/uL (4.0-10.0)
[2022-03-06 07:06] LABS: Glucose Point of Care 143 mg/dL (70-110)
[2022-03-06 07:21] LABS: Alanine Aminotransferase 74 U/L (0-41); Albumin Level 3.9 g/dL (3.5-5.2); Alkaline Phosphatase 142 IU/L (40-130); Anion Gap 25.1 (5-19); Aspartate Amino Transferase 30 U/L (0-40); Blood Urea Nitrogen 21 mg/dL (6-20); Calcium 8.4 mg/dL (8.5-10.5); Carbon Dioxide 14 mmol/L (22-29); Chloride 104 mmol/L (98-107); Creatine Phosphokinase 55 U/L (39-308); Ferritin 308 ng/mL (30-400); Globulin 2.4 g/dL (1.3-4.6); Glomerular Filtration Rate 117.8 mL/min (90-130); Glucose 198 mg/dL (65-115); Iron 23 ug/dL (59-158); Osmolality Calculated 297 mOsm/kg (285-295); Percent Saturation 7.7 % (20-50); Potassium 4.1 mmol/L (3.5-5.1); Sodium 139 mmol/L (136-145); Thyroid Stimulating Hormone 0.19 uIU/mL (0.27-4.20); Total Bilirubin 0.2 mg/dL (0.15-1.2); Total Iron Binding Capacity 297 mcg/dl; Total Protein 6.3 g/dL (6.6-8.7); Unsaturated Iron Binding 274 ug/dL (112-347); Vitamin B12 729 pg/mL (232-1245)
[2022-03-06 07:47] LABS: Free T4 Free Thyroxine 1.46 ng/dL (0.82-1.77)
[2022-03-06 08:00] LABS: Glucose Point of Care 115 mg/dL (70-110)
--- NOTE | 2022-03-06 08:10 | PC.PHAR ---
pts life partner caryl [phone] verified pts medications-notes are made in the pharmacy comments
[2022-03-06] MEDS: dextrose 5%-sod chloride 0.9% 1,000 ML 100 ML IV (08:16)
[2022-03-06 08:42] LABS: Folate Level > 20.0 ng/mL (4.5-32.2)
[2022-03-06 08:47] LABS: Alanine Aminotransferase 69 U/L (0-41); Albumin Level 3.8 g/dL (3.5-5.2); Alkaline Phosphatase 130 IU/L (40-130); Aspartate Amino Transferase 28 U/L (0-40); Blood Urea Nitrogen 17 mg/dL (6-20); Calcium 8.3 mg/dL (8.5-10.5); Carbon Dioxide 17 mmol/L (22-29); Chloride 107 mmol/L (98-107); Globulin 1.9 g/dL (1.3-4.6); Glomerular Filtration Rate 137.4 mL/min (90-130); Glucose 123 mg/dL (65-115); Osmolality Calculated 295 mOsm/kg (285-295); Sodium 141 mmol/L (136-145); Total Bilirubin 0.2 mg/dL (0.15-1.2); Total Protein 5.7 g/dL (6.6-8.7)
--- NOTE | 2022-03-06 08:53 | PC.NURSE ---
Dr. Branch called and gave orders to stop the bicarb gtt and if BS was <200 to start D5 NS at 100 mL/hr.
[2022-03-06 09:58] LABS: Glucose Point of Care 108 mg/dL (70-110)
[2022-03-06 10:10] LABS: Glucose Point of Care 108 mg/dL (70-110)
--- NOTE | 2022-03-06 10:29 | PC.CHAP ---
Pastoral Care Encounter/Spiritual Assessment Type of Contact [] Declined fire chief visit [] Patient/Family/Request visit [] Outpatient visit [] Follow-up visit [] Physician referral [] Code/Alert [x] Routine visit [] Staff referral [] Actively dying [x] Patient sleeping [] Family support [] [] Out of room [] Palliative care [] [] Receiving care in room [] Pre-surgical visit [] Trauma [] Long length of stay [x] ICU visit [] Other: Relational/Emotional Strength [] Patient feels connected with others/family/visitors/staff [] Distress [] Loneliness/isolation [] Abandonment Spirituality of Patient [] Person of Lea [] Attends Shinto of their Lea [] Believes in Prayer [] Reads Bible or Bahai materials [] There are Spiritual issues to be addressed Room Service Manager Interventions [x] Prayer [] Active listening [] Non-anxious presence [] Spiritual/emotional support [] Crisis/trauma care [] Spiritual counseling [] Bereavement support [] Provided bereavement packet [] Provided Bible/devotional materials [] Provided toy/stuffed animal, coloring book to patient or family member [] Provided Communion [] Anointing/Coin [] Salvation [x] Completed spiritual assessment [] Other: Impact on Illness or Injury [] Angry [] Fearful [] Anxious [] Often cries [] Exhaustion [] Unable to work [] Unable to attend samaritan [] Unable to walk/stand [] Unable to read [] Unable to drive [] Unable to eat/drink [] Unable to sleep [] Unable to be with family [] Patient intubated [] Other: Summary Time spent with patient
[2022-03-06 11:01] LABS: Glucose Point of Care 118 mg/dL (70-110)
[2022-03-06 12:06] LABS: Glucose Point of Care 144 mg/dL (70-110)
--- NOTE | 2022-03-06 12:06 | PM.PN ---
Subjective Subjective: Admitted overnight. Currently on sodium bicarb drip running 100 cc/h. Last blood sugar 220. Patient is sleeping on examination, slightly difficult to arouse but wakes up to physical cue and able to answer some questions appropriately. Drowsy but able to maintain his saturations on room air. Last BMP appreciated. Vitals/I&O/Wt Last Vital Signs Temp 98.4 F 03/06/22 08:30 Pulse 108 H 03/06/22 09:30 Resp 15 03/06/22 09:30 BP 132/86 03/06/22 09:30 Pulse Ox 99 03/06/22 09:30 03/05/22 03/06/22 03/06/22 22:59 06:59 14:59 Intake Total 553.333 / 553.333 Balance 553.333 / 553.333 Weight last 48 hrs Weight 52.163 kg Physical Exam Narrative: General: No acute distress, drowsy but arousable, cachectic HEENT: PERRLA, pupils bilaterally equal and reactive Chest: Normal vesicular breath sounds, no added sounds, equal good air entry bilaterally CVS: S1-S2 regular, no murmurs, no tachycardia, no gallops, no rubs Abdomen: Soft, nontender, no organomegaly, bowel sounds present Neuro: No focal deficits, no facial deformity, AO x3, power 5/5 in all limbs Data : 03/06/22 06:31 03/06/22 08:11 Micro: Microbiology 03/06/22 03:55 Blood Culture - Preliminary Blood SPECIMEN COLLECTED 03/06/22 02:06 Blood Culture - Preliminary Blood SPECIMEN COLLECTED A&P Assessment and plan (1) Diabetic ketoacidosis: Continue with insulin drip. BMP every 4 hour. Switch to NS at 100 cc/h. If blood sugars less than 200 can switch to D5 NS. Target blood sugar 1 50-200. Keep potassium over 4. Once anion gap closed can switch over to Lantus 20 units twice daily and insulin sliding scale. Patient would most likely need a closer follow-up with endocrine as an outpatient. Status: Acute (2) Acute kidney injury: Resolved. Most likely secondary to high-grade metabolic acidosis, dehydration in setting of diabetic ketoacidosis. Status: Acute (3) Encephalopathy: Secondary to DKA along with amphetamine abuse. Resolving. We will continue to monitor. CT head negative. Urine drug screen positive for amphetamines. Status: Acute (4) Leukocytosis: Most likely secondary to stress response. Chest x-ray negative for acute abnormality. Patient has remained afebrile. UA negative for any signs of infection. For now we will hold off on any antibiotics. Follow-up blood cultures. If patient spikes fever will start on broad-spectrum antibiotics. Status: Acute (5) Low TSH level: Free T4 normal. Thyroid ultrasound awaited. We will follow-up. Status: Acute (6) Amphetamine abuse: Status: Acute (7) High anion gap metabolic acidosis: Secondary to DKA and elevated lactate. Continue to monitor BMP every 4 hours. Status: Acute (8) Elevated lactic acid level: Status: Acute Plan History of noncompliance. History of leaving AGAINST MEDICAL ADVICE. Full code. NPO. Protonix for PUD prophylaxis. Heparin for DVT prophylaxis. Attestations Medical Necessity Statement*: Requires further hospitalization for management of diabetic ketoacidosis, high anion gap metabolic acidosis, resolving acute kidney injury Critical Care Time: The high probability of a clinically significant, sudden or life threatening deterioration of the patient's [endocrine, neurology system(s) required my full and direct attention, intervention and personal management. The critical care time is as shown. 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
--- NOTE | 2022-03-06 12:13 | USCV_ITS ---
Jean Miller Age: 27 Gender: M : 1995 Exam Date: 03/06/2022 12:30 Ordering Phys: Jens River MD Technologist: GARRET [place]am [place] [facility] [place]: AMEPHETAMINE ABUSE, TACHYCARDIA BP: 125 / 90 HR: 106 Rhythm: Sinus Technical Quality: Adequate MEASUREMENTS (Male / Female) Normal Values 2D ECHO LV Diastolic Diameter PLAX 3.7 cm 4.2 - 5.9 / 3.9 - 5.3 cm LV Systolic Diameter PLAX 2.5 cm IVS Diastolic Thickness 1.3 cm 0.6 - 1.0 / 0.6 - 0.9 cm IVS Systolic Thickness 1.7 cm LVPW Diastolic Thickness 0.9 cm 0.6 - 1.0 / 0.6 - 0.9 cm LVPW Systolic Thickness 1.4 cm LVOT Diameter 2.0 cm LV Ejection Fraction 2D Teich 63.6 % LV Ejection Fraction MOD 2C 67.7 % LV Ejection Fraction 2C AL 67.0 % LA Diameter 1.8 cm LA Width 2.6 cm LA Height 3.4 cm RA Width 2.5 cm RA Height 3.6 cm Aorta at Sinotubular Diameter 2.3 cm IVC Diameter 1.0 cm M-MODE Aortic Annulus Diameter 2.6 cm LA Ao Ratio MM 0.6 MV E Point Septal Separation 0.3 cm DOPPLER AV Peak Velocity 153.0 cm/s LVOT Peak Velocity 112.0 cm/s AV Area Cont Eq vti 2.7 cm squared AV Area Cont Eq pk 2.3 cm squared MV Peak Velocity 104.0 cm/s MV Area PHT 3.1 cm squared Mitral E to A Ratio 1.0 MV E' Velocity 55.5 cm/s Mitral E to MV E' Ratio 6.4 Mitral E to LV E' Lateral Ratio 6.4 Mitral E to LV E' Septal Ratio 6.3 TR Peak Velocity 184.4 cm/s TR Peak Gradient 13.6 mmHg TR Mean Velocity 158.1 cm/s TR Mean Gradient 10.1 mmHg TR Velocity Time Integral 36.9 cm TV Peak E Velocity 92.0 cm/s Right Atrial Pressure 3.0 mmHg Pulmonary Artery Systolic Pressu 16.6 mmHg FINDINGS Left Ventricle Normal left ventricular size, systolic function and wall thickness, with no regional wall motion abnormalities. Left ventricular ejection fraction is estimated at 75 %. Normal diastolic function for age. Right Ventricle Normal right ventricular size and systolic function. RVSP could not be calculated due to incomplete tricuspid regurgitation velocity profile. Right Atrium Normal right atrial size. Right atrial pressure estimated at 3 mmHg. Left Atrium Normal left atrial size. Mitral Valve Structurally normal mitral valve. No mitral valve stenosis. No mitral valve regurgitation. Aortic Valve Structurally normal trileaflet aortic valve. No aortic valve stenosis. No aortic valve regurgitation. Tricuspid Valve Structurally normal tricuspid valve. No tricuspid valve stenosis. Trace tricuspid valve regurgitation. Pulmonic Valve Pulmonic valve not well visualized. No pulmonary valve stenosis. Trace pulmonary valve regurgitation. Pericardium No pericardial effusion. Aorta Normal size aortic root and proximal ascending aorta. Normal descending aorta size. IVC Normal IVC dimension with >50% respiratory change of the inferior vena cava. CONCLUSIONS 1. Normal left ventricular size, systolic function and wall thickness, with no regional wall motion abnormalities. Left ventricular ejection fraction is estimated at 75 %. Normal diastolic function for age. 2. Normal right ventricular size and systolic function. 3. No significant valvular abnormality. 4. No prior similar studies to compare. Aracelis Jauregui MD (Electronically Signed) Final Date: 06 Mar 2022 17:15 S
[2022-03-06] MEDS: pantoprazole 40 mg SDV IVP (12:42)
[2022-03-06] MEDS: heparin 5,000 unit/mL INJ 1 mL 5000 UNIT SUBCUT (12:42)
[2022-03-06 12:52] LABS: Alanine Aminotransferase 66 U/L (0-41); Albumin Level 3.7 g/dL (3.5-5.2); Alkaline Phosphatase 117 IU/L (40-130); Anion Gap 17.8 (5-19); Aspartate Amino Transferase 23 U/L (0-40); Blood Urea Nitrogen 16 mg/dL (6-20); Calcium 8.1 mg/dL (8.5-10.5); Carbon Dioxide 20 mmol/L (22-29); Chloride 105 mmol/L (98-107); Globulin 1.7 g/dL (1.3-4.6); Glomerular Filtration Rate 137.4 mL/min (90-130); Glucose 131 mg/dL (65-115); Osmolality Calculated 291 mOsm/kg (285-295); Potassium 3.8 mmol/L (3.5-5.1); Sodium 139 mmol/L (136-145); Total Bilirubin 0.2 mg/dL (0.15-1.2); Total Protein 5.4 g/dL (6.6-8.7)
[2022-03-06 12:59] LABS: Procalcitonin 0.73 ng/mL (0-0.5)
[2022-03-06 13:35] LABS: Glucose Point of Care 104 mg/dL (70-110)
[2022-03-06 14:01] LABS: Glucose Point of Care 110 mg/dL (70-110)
[2022-03-06] MEDS: dextrose 5%-sod chloride 0.9% 1,000 ML 150 ML IV (14:09)
--- NOTE | 2022-03-06 14:54 | PC.NURSE ---
Patients mom would like patient to receive a referral to ammunition storage superintendent here at the hospital for follow up care
[2022-03-06 16:06] LABS: Glucose Point of Care 127 mg/dL (70-110)
[2022-03-06 16:27] LABS: Alanine Aminotransferase 62 U/L (0-41); Albumin Level 3.6 g/dL (3.5-5.2); Alkaline Phosphatase 117 IU/L (40-130); Blood Urea Nitrogen 18 mg/dL (6-20); Calcium 8.2 mg/dL (8.5-10.5); Carbon Dioxide 19 mmol/L (22-29); Chloride 106 mmol/L (98-107); Globulin 2.3 g/dL (1.3-4.6); Glomerular Filtration Rate 137.4 mL/min (90-130); Glucose 115 mg/dL (65-115); Osmolality Calculated 293 mOsm/kg (285-295); Sodium 140 mmol/L (136-145); Total Bilirubin 0.3 mg/dL (0.15-1.2); Total Protein 5.9 g/dL (6.6-8.7)
[2022-03-06 16:29] LABS: Glucose Point of Care 130 mg/dL (70-110)
--- NOTE | 2022-03-06 16:30 | PC.NURSE ---
Family friend Cesia phone number [phone]
[2022-03-06 16:49] LABS: Anion Gap 18.9 (5-19); Aspartate Amino Transferase 25 U/L (0-40); Potassium 3.9 mmol/L (3.5-5.1)
[2022-03-06] MEDS: sodium chloride 0.9% 1,000 ML 75 ML IV (17:02)
[2022-03-06 17:25] LABS: Glucose Point of Care 106 mg/dL (70-110)
[2022-03-06] MEDS: insulin glargine 100 units/1 mL 20 UNIT SUBCUT (17:26)
--- NOTE | 2022-03-06 17:32 | PC.NURSE ---
Patient allowed to eat dinner and ate 100%. Long acting insulin and s/s insulin started per Dr. Elam's orders and MAR. Insulin gtt stopped along with D5 NS, now NS @ 75mL/hr currently running.
[2022-03-06] MEDS: insulin lispro 100 unit/1 mL SUBCUT (20:36)
[2022-03-06 20:45] LABS: Glucose Point of Care 214 mg/dL (70-110)
[2022-03-06 22:22] LABS: Alanine Aminotransferase 56 U/L (0-41); Albumin Level 3.4 g/dL (3.5-5.2); Alkaline Phosphatase 108 IU/L (40-130); Anion Gap 15.5 (5-19); Aspartate Amino Transferase 19 U/L (0-40); Blood Urea Nitrogen 14 mg/dL (6-20); Calcium 8.6 mg/dL (8.5-10.5); Carbon Dioxide 21 mmol/L (22-29); Chloride 103 mmol/L (98-107); Globulin 1.8 g/dL (1.3-4.6); Glomerular Filtration Rate 137.4 mL/min (90-130); Glucose 169 mg/dL (65-115); Osmolality Calculated 286 mOsm/kg (285-295); Potassium 3.5 mmol/L (3.5-5.1); Sodium 136 mmol/L (136-145); Total Bilirubin 0.3 mg/dL (0.15-1.2); Total Protein 5.2 g/dL (6.6-8.7)
[2022-03-06] MEDS: metoprolol tartrate 25 mg Tablet PO (23:02)
[2022-03-07] VITALS (16 sets, daily range): BP systolic 112–179; BP diastolic 68–108; PULSE 74–88; RESP 4–21; TEMP 36.7; O2SAT 97–99
[2022-03-07] MEDS: heparin 5,000 unit/mL INJ 1 mL 5000 UNIT SUBCUT ×2 (00:08→12:25)
[2022-03-07 01:07] LABS: Alanine Aminotransferase 49 U/L (0-41); Albumin Level 3.2 g/dL (3.5-5.2); Alkaline Phosphatase 103 IU/L (40-130); Blood Urea Nitrogen 14 mg/dL (6-20); Calcium 8.3 mg/dL (8.5-10.5); Carbon Dioxide 23 mmol/L (22-29); Chloride 105 mmol/L (98-107); Globulin 1.7 g/dL (1.3-4.6); Glomerular Filtration Rate 137.4 mL/min (90-130); Glucose 198 mg/dL (65-115); Osmolality Calculated 288 mOsm/kg (285-295); Sodium 136 mmol/L (136-145); Total Bilirubin 0.2 mg/dL (0.15-1.2); Total Protein 4.9 g/dL (6.6-8.7)
[2022-03-07 01:27] LABS: Anion Gap 11.5 (5-19); Aspartate Amino Transferase 18 U/L (0-40); Potassium 3.5 mmol/L (3.5-5.1)
[2022-03-07] MEDS: sodium chloride 0.9% 1,000 ML 75 ML IV (02:19)
[2022-03-07 06:18] LABS: Basophils % 0.2 %; Eosinophils % 0.2 %; Hemoglobin 12.9 g/dL (11.7-16.6); Lymphocytes # 2.9 10^3/uL (0.8-4.8); Lymphocytes % 19.9 %; Mean Corpuscular HGB Conc 33.1 g/dL (30.0-36.0); Mean Corpuscular Hemoglobin 29.9 pg (28.0-34.0); Mean Corpuscular Volume 90.5 fl (80-94); Mean Platelet Volume 10.5 fL (7.4-10.4); Monocytes % 7.1 %; Neutrophils # 10.37 10^3/uL (1.8-7.7); Neutrophils % 72.3 %; Nucleated Red Blood Cells % 0 %; Platelet Count 296 10^3/cmm (130-400); Red Blood Count 4.31 10^6/uL (4.1-5.3); White Blood Count 14.4 10^3/uL (4.0-10.0)
[2022-03-07 06:41] LABS: Alanine Aminotransferase 46 U/L (0-41); Albumin Level 3.2 g/dL (3.5-5.2); Alkaline Phosphatase 99 IU/L (40-130); Aspartate Amino Transferase 17 U/L (0-40); Blood Urea Nitrogen 12 mg/dL (6-20); Calcium 8.5 mg/dL (8.5-10.5); Carbon Dioxide 22 mmol/L (22-29); Chloride 105 mmol/L (98-107); Globulin 1.4 g/dL (1.3-4.6); Glomerular Filtration Rate 202.6 mL/min (90-130); Glucose 113 mg/dL (65-115); Magnesium 1.6 mg/dL (1.7-2.3); Osmolality Calculated 283 mOsm/kg (285-295); Phosphorus 2.6 mg/dL (2.5-4.5); Sodium 136 mmol/L (136-145); Total Bilirubin 0.3 mg/dL (0.15-1.2); Total Protein 4.6 g/dL (6.6-8.7)
[2022-03-07 06:43] LABS: Anion Gap 12.6 (5-19)
[2022-03-07 06:44] LABS: Potassium 3.6 mmol/L (3.5-5.1)
[2022-03-07 07:19] LABS: Glucose Point of Care 87 mg/dL (70-110)
[2022-03-07] MEDS: pantoprazole 40 mg SDV IVP (08:39)
[2022-03-07] MEDS: potassium chloride ER 20 mEq Tablet PO (08:40)
[2022-03-07] MEDS: metoprolol tartrate 25 mg Tablet PO (08:41)
[2022-03-07] MEDS: magnesium sulfate premix 4 GM/100 ML PREMIX IV (08:41)
[2022-03-07] MEDS: potassium chloride ER 20 mEq Tablet 40 MEQ PO (08:41)
--- NOTE | 2022-03-07 09:35 | PC.CHAP ---
Pastoral Care Encounter/Spiritual Assessment Type of Contact [] Declined grain processor visit [] Patient/Family/Request visit [] Outpatient visit [] Follow-up visit [] Physician referral [] Code/Alert [x] Routine visit [] Staff referral [] Actively dying [x] Patient sleeping [] Family support [] [] Out of room [] Palliative care [] [] Receiving care in room [] Pre-surgical visit [] Trauma [] Long length of stay [x] ICU visit [] Other: Relational/Emotional Strength [] Patient feels connected with others/family/visitors/staff [] Distress [] Loneliness/isolation [] Abandonment Spirituality of Patient [] Person of Lea [] Attends Jehovah'S Witness of their Lea [] Believes in Prayer [] Reads Bible or Yarsanism materials [] There are Spiritual issues to be addressed Drawing Checker Interventions [x] Prayer [] Active listening [] Non-anxious presence [] Spiritual/emotional support [] Crisis/trauma care [] Spiritual counseling [] Bereavement support [] Provided bereavement packet [] Provided Bible/devotional materials [] Provided toy/stuffed animal, coloring book to patient or family member [] Provided Communion [] Anointing/[place] [] Salvation [x] Completed spiritual assessment [] Other: Impact on Illness or Injury [] Angry [] Fearful [] Anxious [] Often cries [] Exhaustion [] Unable to work [] Unable to attend buddhism [] Unable to walk/stand [] Unable to read [] Unable to drive [] Unable to eat/drink [] Unable to sleep [] Unable to be with family [] Patient intubated [] Other: Summary Time spent with patient
[2022-03-07 10:33] LABS: Alanine Aminotransferase 46 U/L (0-41); Albumin Level 3.2 g/dL (3.5-5.2); Alkaline Phosphatase 109 IU/L (40-130); Anion Gap 12.7 (5-19); Aspartate Amino Transferase 17 U/L (0-40); Blood Urea Nitrogen 10 mg/dL (6-20); Calcium 8.2 mg/dL (8.5-10.5); Carbon Dioxide 22 mmol/L (22-29); Chloride 100 mmol/L (98-107); Globulin 1.9 g/dL (1.3-4.6); Glomerular Filtration Rate 164.2 mL/min (90-130); Glucose 325 mg/dL (65-115); Osmolality Calculated 284 mOsm/kg (285-295); Potassium 3.7 mmol/L (3.5-5.1); Sodium 131 mmol/L (136-145); Total Bilirubin 0.3 mg/dL (0.15-1.2); Total Protein 5.1 g/dL (6.6-8.7)
--- NOTE | 2022-03-07 10:34 | PM.DCS ---
Discharge Providers Date of Admission: 03/06/22 04:42 Date of Discharge: March 07, 2022 Attending Provider at Admission: Barbie Mederos DO Attending Provider at Discharge: Leila Morales MD Primary Care Provider: Peace Brothers MD Diagnoses at Discharge Discharge Diagnosis (1) Diabetic ketoacidosis: Status: Resolved (2) Acute kidney injury: Status: Resolved (3) Encephalopathy: Status: Resolved (4) Leukocytosis: Status: Acute (5) Low TSH level: Status: Acute (6) Amphetamine abuse: Status: Acute (7) High anion gap metabolic acidosis: Status: Resolved (8) Elevated lactic acid level: Status: Resolved Reason for Visit Reason for Visit: DKA Brief History: The patient is a 27-year-old male with known history of medical noncompliance and recurrent admissions for DKA who presents with chief complaint of DKA.? During my encounter with the patient he is somnolent and requires frequent arousal.? When I do arouse him, he is minimally cooperative.? Unfortunately because of this, I am unable to obtain further history of present illness.? He presents for further evaluation Hospital Course Hospital Course Patient is 23-year-old male with type 1 diabetes who presents to the hospital with nausea vomiting. He was admitted for DKA and managed for that. At time of admission he was quite somnolent so much history could not be obtained. He has had medical noncompliance and recurrent admissions for DKA in the last few weeks. Patient stated that he try to draw insulin from his pen using a syringe and then there was a gap left in the pen and therefore when he tried to use the pen later on insulin did not get administered to him and that is probably why he missed his dose which threw him into DKA. Patient's pH was 7.08 at admission he received IV fluids, bicarbonate, insulin drip in the ICU. When anion gap was closed he was bridged to his long-acting insulin with a sliding scale and started on a diet. At discharge patient was given refills on his medications. Nursing staff also told me that he has an insulin pump at home which he does not use. He has not seen endocrinology in last couple of visits and because of not following up he was fired from that office. I spoke to Dr. Jones personally and she agreed to see Mr. Miller again. Patient was set up with an appointment for endocrinology at discharge. Also during this hospitalization thyroid ultrasound was done which showed a complex nodule within superior lobe of right thyroid. There was increased vascularity noted moderately suspicious for neoplasm. Case was discussed with radiology and patient was given an appointment for March 22 for fine-needle aspiration of that nodule for further evaluation. All questions were answered to patient satisfaction and patient was discharged home in stable condition. Physical Exam Narrative: General exam no distress Neck is supple no lymphadenopathy or thyromegaly Cardiovascular regular rate and rhythm without murmur Lungs clear to ausculation Abdomen is soft with positive bowel sounds Extremities no cyanosis clubbing or edema Discharge Data Studies Completed and Pending Completed Studies During Hospitalization Category Date Time Status CT head wo con* [id number] Urgent Cat Scan 03/06/22 03:05 Completed XR chest 1V portable [id number] Urgent Exams 03/06/22 02:15 Completed CV. echo complete* [id number] Routine Ultrasound 03/06/22 12:13 Completed US thyroid [id number] Routine Ultrasound 03/06/22 04:42 Completed Pending at discharge Category Date Time Status Blood Culture Stat Lab 03/06/22 03:55 Results CMP [Comprehensive Metabolic Panel] Q4H Lab 03/07/22 09:22 Received CMP [Comprehensive Metabolic Panel] Q4H Lab 03/07/22 12:42 Ordered CMP [Comprehensive Metabolic Panel] Q4H Lab 03/07/22 16:42 Ordered Hemoglobin A1C AM LABS Lab 03/07/22 09:22 Received Miscellaneous Test Routine Lab 03/06/22 06:31 Received Thyroglobulin AB Routine Lab 03/06/22 06:31 Received Thyroid Peroxidase Antobodies Routine Lab 03/06/22 06:31 Received Radiology Impressions Chest X-Ray 03/06/22 02:15 IMPRESSION: 1. Essentially unremarkable single view chest. 2. Other findings discussed above. Head CT 03/06/22 03:05 IMPRESSION: 1. No acute intracranial hemorrhage or mass effect. 2. No definite acute infarct by CT, see above. 3. Other findings discussed above. 4. Some limitations due to artifact from patient motion. Thyroid Ultrasound 03/06/22 04:42 Impression: TR4; mural nodule superior pole RIGHT thyroid. Recommendation:Complex nodule within the superior lobe of the RIGHT thyroid. This is a mural nodule with lobulated margins and marked increased vascularity. Moderately suspicious for neoplasm. Ultrasound-guided FNA versus surgical removal. Laboratory Results WBC 14.4 10^3/uL (4.0-10.0) H 03/07/22 06:04 RBC 4.31 10^6/uL (4.1-5.3) 03/07/22 06:04 Hgb 12.9 g/dL (11.7-16.6) 03/07/22 06:04 Hct 39.0 % (42.0-52.0) L 03/07/22 06:04 MCV 90.5 fl (80-94) 03/07/22 06:04 MCH 29.9 pg (28.0-34.0) 03/07/22 06:04 MCHC 33.1 g/dL (30.0-36.0) 03/07/22 06:04 RDW 14.0 % (12.1-15.1) 03/07/22 06:04 Plt Count 296 10^3/cmm (130-400) 03/07/22 06:04 MPV 10.5 fL (7.4-10.4) H 03/07/22 06:04 Neut % (Auto) 72.3 % 03/07/22 06:04 Lymph % (Auto) 19.9 % 03/07/22 06:04 [place] % (Auto) 7.1 % 03/07/22 06:04 Eos % (Auto) 0.2 % 03/07/22 06:04 Baso % (Auto) 0.2 % 03/07/22 06:04 Neut # (Auto) 10.37 10^3/uL (1.8-7.7) H 03/07/22 06:04 Lymph # (Auto) 2.9 10^3/uL (0.8-4.8) 03/07/22 06:04 [place] # (Auto) 1.0 10^3/uL (0.2-0.9) H 03/07/22 06:04 Eos # (Auto) 0.0 10^3/uL (0.0-0.8) 03/07/22 06:04 Baso # (Auto) 0.0 10^3/uL (0.0-0.1) 03/07/22 06:04 Nucleated RBC % (auto) 0 % 03/07/22 06:04 Nucleated RBCs # 0.0 /100WBC 03/07/22 06:04 Specimen Type Arterial 03/06/22 02:08 Sample Site Brachial, right 03/06/22 02:08 ABG pH 7.08 (7.35-7.45) L* 03/06/22 02:08 ABG pCO2 7.9 mmHg (35-45) L* 03/06/22 02:08 ABG pO2 142.0 mmHg (80.0-100.0) H 03/06/22 02:08 ABG HCO3 2.4 mmol/L (22-26) L 03/06/22 02:08 ABG Base Excess -25.1 mmol/L (-2.0-2.0) L 03/06/22 02:08 Bereket Test Pos 03/06/22 02:08 Hematocrit 45.6 % (42-52) 03/06/22 02:08 O2 Delivery Device None 03/06/22 02:08 Machine Engineer ID Hensa 03/06/22 02:08 Sodium 136 mmol/L (136-145) 03/07/22 06:04 Potassium 3.7 mmol/L (3.5-5.1) 03/07/22 09:22 Chloride 100 mmol/L (98-107) 03/07/22 09:22 Carbon Dioxide 22 mmol/L (22-29) 03/07/22 09:22 Anion Gap 12.7 (5-19) 03/07/22 09:22 BUN 10 mg/dL (6-20) 03/07/22 09:22 Creatinine 0.5 mg/dL (0.7-1.2) L 03/07/22 06:04 GFR Calculation 202.6 mL/min (90-130) H 03/07/22 06:04 Glucose 113 mg/dL (65-115) 03/07/22 06:04 POC Glucose 87 mg/dL (70-110) 03/07/22 07:15 Calculated Osmolality 283 mOsm/kg (285-295) L 03/07/22 06:04 Lactic Acid 1.0 mmol/L (0.5-2.2) 03/07/22 09:22 Lactate 4.2 mmol/L (0.5-2.2) H* 03/06/22 02:06 Calcium 8.5 mg/dL (8.5-10.5) 03/07/22 06:04 Phosphorus 2.6 mg/dL (2.5-4.5) 03/07/22 06:04 Magnesium 1.6 mg/dL (1.7-2.3) L 03/07/22 06:04 Iron Cancelled 03/06/22 12:15 TIBC Cancelled 03/06/22 12:15 % Saturation Cancelled 03/06/22 12:15 Unsat Iron Binding Cancelled 03/06/22 12:15 Ferritin 308 ng/mL (30-400) 03/06/22 06:31 Total Bilirubin 0.3 mg/dL (0.15-1.2) 03/07/22 09:22 AST 17 U/L (0-40) 03/07/22 09:22 ALT 46 U/L (0-41) H 03/07/22 06:04 Alkaline Phosphatase 109 IU/L (40-130) 03/07/22 09:22 Creatine Kinase 55 U/L (39-308) 03/06/22 06:31 CK-MM (CK-3) Cancelled 03/06/22 06:31 CK-MB (CK-2) Cancelled 03/06/22 06:31 CK-BB (CK-1) Cancelled 03/06/22 06:31 Creatine Kinase Interp Cancelled 03/06/22 06:31 Total Protein 4.6 g/dL (6.6-8.7) L 03/07/22 06:04 Albumin 3.2 g/dL (3.5-5.2) L 03/07/22 06:04 Globulin 1.9 g/dL (1.3-4.6) 03/07/22 09:22 Lipase 12 U/L (13-60) L 03/06/22 02:06 Vitamin B12 729 pg/mL (232-1245) 03/06/22 06:31 Folate > 20.0 ng/mL (4.5-32.2) 03/06/22 06:31 Procalcitonin 0.73 ng/mL (0-0.5) H 03/06/22 12:15 TSH 0.19 uIU/mL (0.27-4.20) L 03/06/22 06:31 Free T4 1.46 ng/dL (0.82-1.77) 03/06/22 06:31 Urine Color Yellow (Yellow) 03/06/22 02:35 Urine Appearance Clear (CLEAR) 03/06/22 02:35 Urine pH 5 (5-7) 03/06/22 02:35 Ur Specific [place] 1.020 (1.005-1.030) 03/06/22 02:35 Urine Protein Trace (Negative) 03/06/22 02:35 Urine Glucose (UA) 4+ (Normal) H 03/06/22 02:35 Urine Ketones 3+ (Negative) H 03/06/22 02:35 Urine Blood Neg (Negative) 03/06/22 02:35 Urine Nitrate Negative (Negative) 03/06/22 02:35 Urine Bilirubin Neg (Negative) 03/06/22 02:35 Urine Urobilinogen Norm mg/dL (Negative) 03/06/22 02:35 Ur Leukocyte Esterase Negative (Negative) 03/06/22 02:35 Urine RBC 0-4 /hpf (0-2) H 03/06/22 02:35 Urine WBC 0-4 /hpf (0-5) H 03/06/22 02:35 Ur Squamous Epith Cells 0-4 /hpf (0-5) H 03/06/22 02:35 Amorphous Sediment Not Reportable 03/06/22 02:35 Urine Bacteria None /hpf (NONE) 03/06/22 02:35 Urine Mucus N /hpf 03/06/22 02:35 Salicylates 0.7 mg/dL (3-10) L 03/06/22 02:06 Urine Opiates Screen Negative ng/mL (Negative) 03/06/22 02:35 Acetaminophen < 5.0 ug/mL (10-30) L 03/06/22 02:06 Ur Barbiturates Screen Negative ng/mL (Negative) 03/06/22 02:35 Ur Phencyclidine Scrn Negative ng/mL (Negative) 03/06/22 02:35 Ur Amphetamines Screen Positive ng/mL (Negative) H 03/06/22 02:35 U Benzodiazepines Scrn Negative ng/mL (Negative) 03/06/22 02:35 Urine Cocaine Screen Negative ng/mL (Negative) 03/06/22 02:35 U Marijuana (THC) Screen Negative ng/mL (Negative) 03/06/22 02:35 Ethyl Alcohol < 10 mg/dL (0-10) 03/06/22 02:06 Serum Ketones Positive (Negative) H 03/06/22 02:06 Vitals Last Vital Signs Temp 98.1 F 03/07/22 00:00 Pulse 86 03/07/22 10:00 Resp 19 H 03/07/22 10:00 BP 179/103 03/07/22 10:00 Pulse Ox 98 03/07/22 10:00 Discharge Plan Discharge Patient Disposition: Home Condition: Stable Prescriptions: Continued Novolin R Flexpen 100 unit/mL (3 mL) insulin pen See Rx Instructions .ROUTE .COMPLEX Qty: 15 0RF Rx Instructions: sliding scale subcutaneously with meals as directed Levemir FlexTouch U-100 Insuln 100 unit/mL (3 mL) insulin pen 20 unit SUBCUT DAILY 30 Days Qty: 9 0RF Discharge Orders: Discharge Order (Routine); Ordered 03/07/22 Ordered By: Leila Morales Referrals: Peace Brothers MD [Primary Care Provider] - 4-7 days (you will need to call for this appointment,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 Your biopsy has been scheduled for March 22 at 1 PM. He will receive a letter in the mail with instructions. Please take your insulin and sliding scale as directed. Please follow-up with Dr. Jones for endocrinology within 4 to 7 days of discharge. I have called her and discussed your case and she will see you in her office as an outpatient. Discharge Attestations Time Spent in Discharge Care*: greater than 30 min Quality Metrics Clinical Quality Measures [ No reported AMI, CVA or VTE this stay] Coding Level of Care Code Acute Chg FW DC note Diagnoses Diabetic ketoacidosis E11.10 Acute kidney injury N17.9 Encephalopathy G93.40 Leukocytosis D72.829 Low TSH level R79.89 Amphetamine abuse F15.10 High anion gap metabolic acidosis E87.2 Elevated lactic acid level R79.89
[2022-03-07 11:44] LABS: Glucose Point of Care 275 mg/dL (70-110)
[2022-03-07] MEDS: insulin lispro 100 unit/1 mL SUBCUT (12:24)
--- NOTE | 2022-03-07 13:05 | PC.NURSE ---
Patient given all discharge instructions, follow up appointments, and new medications via Meds to Beds with our Pharmacy. This nurse stressed multiple times the importance of keeping follow up appointments with sales executive and other specialist due how critical patient was upon arrival to ICU. Patient verbalized understanding
[2022-03-07 13:18] LABS: Estmated Average Glucose 367; Hemoglobin A1C 14.4 % (4.0-6.0)
[2022-03-07 15:22] LABS: Thyroid Peroxidase Antobodies <1 IU/mL (<9)
[2022-03-07 15:26] LABS: Thyroglobulin AB <1 IU/mL (< or = 1)
== END 2022-03-07 13:08 | disposition home or self-care (01) | DRG 638 ==
LOC: ER 03:04 → ICU 04:14
PROVIDERS: Student in an Organized Health Care Education/Training Program; Admitting Provider Internal Medicine; Emergency Provider Emergency Medicine; PCP Family Medicine; Visit Provider Internal Medicine
DX: E10.10 Type 1 diabetes mellitus with ketoacidosis without coma (principal); M62.82 Rhabdomyolysis; N17.9 Acute kidney failure, unspecified; Z91.14 Patient's other noncompliance with medication regimen; F17.210 Nicotine dependence, cigarettes, uncomplicated; E86.0 Dehydration; E87.5 Hyperkalemia; E83.42 Hypomagnesemia; F15.10 Other stimulant abuse, uncomplicated; F32.A Depression, unspecified; E05.90 Thyrotoxicosis, unspecified without thyrotoxic crisis or storm
CPT/HCPCS: 36415; 36416; 36600; 70450; 71045; 76536; 80053; 80306; 80307; 81001; 82009; 82550; 82607; 82728; 82746; 82803; 82962; 83036; 83540; 83550; 83605; 83690; 83735; 84100; 84145; 84439; 84443; 84445; 85025; 86376; 86800; 87040; 93005; 93306; 96365; 96366; 96372; 96375; 99285; C9113; J1644; J1815 ×2; J3475; J7030; J7050

== ENCOUNTER → 2022-03-14 11:19 | Outpatient (BNVA) | payer MEDICAID, SELFPAY | PROVIDERS: PCP Family Medicine; Referring Provider Internal Medicine; Visit Provider Internal Medicine | DX: Z09 Encounter for follow-up examination after completed treatment for conditions other than malignant neoplasm (principal); E10.11 Type 1 diabetes mellitus with ketoacidosis with coma; E16.0 Drug-induced hypoglycemia without coma; E04.1 Nontoxic single thyroid nodule; R79.89 Other specified abnormal findings of blood chemistry; T38.3X5A Adverse effect of insulin and oral hypoglycemic [antidiabetic] drugs, initial encounter; E05.90 Thyrotoxicosis, unspecified without thyrotoxic crisis or storm; R00.0 Tachycardia, unspecified; F17.210 Nicotine dependence, cigarettes, uncomplicated; Z79.4 Long term (current) use of insulin | CPT/HCPCS: 99214 ==

== ENCOUNTER 2022-03-22 13:15 | Outpatient (CLI) | payer MEDICAID, SELFPAY ==
--- NOTE | 2022-03-22 13:00 | US_ITS ---
WS: [id number] ULTRASOUND THYROID FNA CLINICAL INFORMATION: thyroid nodule biopsy TECHNIQUE: Ultrasound-guided FNA FINDINGS: The procedure including risks, benefits, and complications were discussed with the patient who agreed to proceed. Timeout was performed. Using sterile technique patient was prepped and draped in usual sterile fashion. After 1% lidocaine, using ultrasound guidance, a 25-gauge needle was advanc ed into the complex RIGHT thyroid nodule. 5 passes were made with active aspiration. Pathology was pr esent for slide preparation. No immediate complications. Patient remained in the ultrasound suite 15 minutes postprocedure with intermittent ultrasound to ens ure no hematoma. No hematoma 15 minutes postprocedure. US/US biopsy/FNA thyroid [id number] IMPRESSION: Uncomplicated ultrasound-guided thyroid FNA of the complex RIGHT thyroid nodule . Cytology is pending.
== END 2022-03-22 13:16 | disposition home or self-care (01) ==
LOC: RAD 13:16
PROVIDERS: PCP Family Medicine; Visit Provider Internal Medicine
DX: E04.1 Nontoxic single thyroid nodule (principal)
CPT/HCPCS: 10005; 88173; 88305

== ENCOUNTER → 2022-04-18 12:45 | Outpatient (BNVA) | payer MEDICAID, SELFPAY | PROVIDERS: PCP Family Medicine; Visit Provider Internal Medicine | DX: E10.65 Type 1 diabetes mellitus with hyperglycemia (principal); E10.649 Type 1 diabetes mellitus with hypoglycemia without coma; E16.0 Drug-induced hypoglycemia without coma; T38.3X5A Adverse effect of insulin and oral hypoglycemic [antidiabetic] drugs, initial encounter; E04.1 Nontoxic single thyroid nodule; E05.90 Thyrotoxicosis, unspecified without thyrotoxic crisis or storm; R00.0 Tachycardia, unspecified; F17.210 Nicotine dependence, cigarettes, uncomplicated; Z79.4 Long term (current) use of insulin | CPT/HCPCS: 99214 ==

== ENCOUNTER 2022-05-03 12:22 | Inpatient (IN) | payer MEDICAID, SELFPAY ==
[2022-05-03] VITALS (21 sets, daily range): BP systolic 68–143; BP diastolic 46–95; PULSE 56–120; RESP 13–26; TEMP 36.6–37.1; O2SAT 90–100; BMI 19.8
--- NOTE | 2022-05-03 12:26 | ECG_ITS ---
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 Measurements Intervals [place] Rate: 101 P: 79 ME: 159 QRS: 83 QRSD: 102 T: 66 QT: 371 QTc: 481 Interpretive Statements SINUS TACHYCARDIA SEPTAL MYOCARDIAL INFARCTION , PROBABLY OLD [40+ ms Q WAVE IN V1/V2] Compared to ECG 03/06/2022 01:55:14 Myocardial infarct finding now present Electronically Signed On 05-03-2022 21:15:59 CDT by Bishnu Dennis M.D. [id number] f
--- NOTE | 2022-05-03 12:26 | XR_ITS ---
WS: [id number] XR chest 1V portable [id number] REASON FOR EXAM: dyspnea FINDINGS: Chest is unchanged compared to 03/06/2022. The heart and mediastinum are within normal limits. No lung mass or lung nodule. Calcified granulomatous disease in both hemithoraces. No acute pulmonary parenchymal or pleural abnormality. Mild thoracolumbar scoliosis. XR/XR chest 1V portable [id number] IMPRESSION: No acute chest abnormality.
--- NOTE | 2022-05-03 12:30 | W.ED.GENADLT ---
HPI - General Adult General: Chief complaint: Altered Mental Status Stated complaint: HYPERGLYCEMIA/ HYPOTENSIVE Time Seen by Provider: 05/03/22 12:26 History of Present Illness: Patient is a 27-year-old male with history of type 1 diabetes complicated with DKA with chronic insulin pump who presents emergency room with concerns for nausea vomiting, shortness of breath and fatigue. Patient was last seen normal yesterday night by family. Earlier today, patient removed his insulin pump and since then has had confusion and was found down in the bathroom by family. On arrival, patient is AAO x3, not actively vomiting. Patient no focal complaints at this time Onset: unknown Duration:ongoing Location:home Severity:severe Associated symptoms: Reports nausea and vomiting; Deny chest pain, dyspnea, rash or palpitations Review of Systems Const: Denies: fever(s) or chills Eyes: Denies: change in vision ENMT: Denies: mouth pain Card: Denies: chest pain or palpitations Resp: Denies: dyspnea or non-productive cough GI: Reports: abdominal pain, nausea and vomiting; Denies: diarrhea : Denies: dysuria Musc: Denies: extremity pain Skin/Breast: Denies: rash or new lesions Neuro: Denies: weakness in extremities Psych: Reports: other (Normal mood) Basim/Lymph: Denies: easy bruising PFSH ED PFSH: Medical History Diabetes type 1, uncontrolled History of DKA Long-term insulin use Psychiatric care Surgical History No history of previous surgery none known Family History Other Family history unknown Social History Smoking and tobacco status: current every day smoker cigarettes Packs smoked per day: 1 Alcohol intake: former Current occupational status: employed Physical Exam Const: COMMON NORMALS: alert HENMT: COMMON NORMALS: atraumatic HEAD & SCALP: atraumatic MOUTH: moist mucous membranes abnormal Eye: COMMON NORMALS: EOMs intact bilaterally and conjunctivae normal CONJUNCTIVA: Yes conjunctivae normal Neck/C-Spine: COMMON NORMALS: full ROM and supple Resp: COMMON NORMALS: normal respiratory effort and clear to auscultation bilaterally AUSCULTATION: clear to auscultation bilaterally Cardio: COMMON NORMALS: regular rate RATE: regular rate and tachycardic GI: COMMON NORMALS: Soft to palpation PALPATION: Yes Soft to palpation OTHER: +mild diffuse focal TTP. NO guarding rebound, guarding, rigidity. No CVA tenderness to percussion. Neg Kuhn/Neg McBurney's point tenderness, no suprabupic tenderness to palpation. Extremity: COMMON NORMALS: full ROM Neuro: SENSORIUM/ORIENTATION: Yes alert MOTOR EXAM: No Abnormal motor strength present and Other motor observations present (no focal motor deficits) Psych: COMMON NORMALS: speech normal SPEECH: Yes normal speech MOOD & AFFECT: Yes euthymic mood Course Vital Signs: Vital signs: Vital Signs Temperature 97.9 F 05/03/22 13:19 Pulse Rate 100 05/03/22 13:19 Respiratory Rate 26 H 05/03/22 13:19 Blood Pressure 92/46 05/03/22 13:19 Pulse Oximetry 94 05/03/22 13:19 MDM - General Adult Medical Decision Making 27-year-old male with history of type 1 diabetes complicated by DKA presenting to the emergency room with concerns of altered mental status, nausea/vomiting, diffuse abdominal pain and vomiting. This is consistent with possible DKA. Patient had a glucose >1000. pH of 6.98. Potassium was 6.3. EKG showed peaked T waves in the septal leads. Patient received calcium gluconate. Patient is now on insulin drip. Patient is s/p 6L of LR. CT abdomen pelvis showed acute hepatitis. AST ALT within normal. There is no CBD dilatation on CT scan. T bili within normal limit. Do not suspect acute cholangitis. Acute hepatitis panel sent. Tylenol level wnl. Patient is now more awake and alert. Patient reports feeling symptomatically improved. Creatinine of 2.1 today. Lactic elevation improved on repeat assessment. Patient's status post vancomycin and Zosyn. Blood cultures been sent. Disposition: admission Lab Data : 05/03/22 12:35 05/03/22 14:09 Radiology Impressions Chest X-Ray 05/03/22 12:26 IMPRESSION: No acute chest abnormality. Abdomen/Pelvis CT 05/03/22 12:56 IMPRESSION: 1. Hepatomegaly with diffuse heterogeneous enhancement and periportal edema is new compared to October 26, 2021. Recommend correlation with liver function tests. This may be related to patient's DKA versus acute hepatitis due to various causes. 2. Portal vein and splenic vein are patent. 3. Diffuse small bowel enhancement and thickening likely related to DKA with hypovolemia 4. Celiac and SMA are patent. Mild narrowing at the celiac origin due to median arcuate ligament impingement unchanged since 2017 5. Small amount of fluid in the gallbladder fossa likely related to liver congestion. 6. Small RIGHT renal cyst. 7. Urinary distention of the bladder. 8. No other acute findings. Notified Carol Uriarte MD at 05/03/2022 2:43 PM. Laboratory Results WBC 42.7 10^3/uL (4.0-10.0) H* 05/03/22 12:35 RBC 4.85 10^6/uL (4.1-5.3) 05/03/22 12:35 Hgb 15.0 g/dL (11.7-16.6) 05/03/22 12:35 Hct 51.4 % (42.0-52.0) 05/03/22 12:35 MCV 106.0 fl (80-94) H 05/03/22 12:35 MCH 30.9 pg (28.0-34.0) 05/03/22 12:35 MCHC 29.2 g/dL (30.0-36.0) L 05/03/22 12:35 RDW 12.5 % (12.1-15.1) 05/03/22 12:35 Plt Count 480 10^3/cmm (130-400) H 05/03/22 12:35 MPV 12.0 fL (7.4-10.4) H 05/03/22 12:35 Lymph % (Auto) Not Reportable 05/03/22 12:35 [place] % (Auto) Not Reportable 05/03/22 12:35 Lymph # (Auto) Not Reportable 05/03/22 12:35 [place] # (Auto) Not Reportable 05/03/22 12:35 Total Counted 100 (0-100) 05/03/22 12:35 Atypical Lymphs % 12.0 % (0-5) H 05/03/22 12:35 Absolute Neutrophils 32.5 10^3/cmm (1.4-6.5) H 05/03/22 12:35 Segmented Neutrophils 74 % 05/03/22 12:35 Abs Segm Neuts (Man) 31.6 10/cmm (1.6-7.1) H 05/03/22 12:35 Band Neutrophils 2.0 % 05/03/22 12:35 Abs Band Neuts (Man) 0.9 10^3/cmm (0.0-1.2) 05/03/22 12:35 Absolute Lymphocytes 8.5 10^3/cmm (1.2-3.4) H 05/03/22 12:35 Lymphocytes (Manual) 8 % 05/03/22 12:35 Monocytes (Manual) 1.0 % 05/03/22 12:35 Absolute Monocytes 0.4 10^3/cmm (0.1-0.6) 05/03/22 12:35 Eosinophils (Manual) 0 % 05/03/22 12:35 Absolute Eosinophils 0.0 10^3/cmm (0.0-0.7) 05/03/22 12:35 Basophils (Manual) 0.0 % 05/03/22 12:35 Absolute Basophils 0.0 10^3/cmm (0.0-0.2) 05/03/22 12:35 Metamyelocytes 1.0 % 05/03/22 12:35 Myelocytes 2.0 % 05/03/22 12:35 Platelet Estimate Increased (Normal) 05/03/22 12:35 Specimen Type Arterial 05/03/22 12:32 Sample Site Brachial, right 05/03/22 12:32 ABG pH 6.97 (7.35-7.45) L* 05/03/22 12:32 ABG pCO2 8.5 mmHg (35-45) L* 05/03/22 12:32 ABG pO2 173.0 mmHg (80.0-100.0) H 05/03/22 12:32 ABG HCO3 1.9 mmol/L (22-26) L 05/03/22 12:32 ABG O2 Saturation 98.7 05/03/22 12:32 ABG Base Excess -28.1 mmol/L (-2.0-2.0) L 05/03/22 12:32 [place] Test Pos 05/03/22 12:32 A-a O2 Gradient Not Reportable 05/03/22 12:32 Hematocrit 45.2 % (42-52) 05/03/22 12:32 Hgb O2 Saturation 97.0 % (95-100) 05/03/22 12:32 Carboxyhemoglobin 0.7 %THgb (0.4-20.1) 05/03/22 12:32 Methemoglobin 1.1 % (0.4-1.5) 05/03/22 12:32 Total Hemoglobin 14.7 g/dL (14-18) 05/03/22 12:32 Sodium 118.0 mmol/L (131-143) L 05/03/22 12:32 Potassium 6.3 mmol/L (3.5-5.0) H 05/03/22 12:32 Glucose > 1080.0 mg/dL (70-115) H 05/03/22 12:32 Ionized Calcium 1.1 mmol/L (1.1-1.4) 05/03/22 12:32 O2 Delivery Device Nc 05/03/22 12:32 O2 Liters/Min 2.0 % 05/03/22 12:32 Level Designer ID Cak 05/03/22 12:32 Sodium 127 mmol/L (136-145) L 05/03/22 14:09 Potassium 4.5 mmol/L (3.5-5.1) 05/03/22 14:09 Chloride 82 mmol/L (98-107) L 05/03/22 14:09 Carbon Dioxide 10 mmol/L (22-29) L 05/03/22 14:09 Anion Gap 39.5 (5-19) H 05/03/22 14:09 BUN 44 mg/dL (6-20) H 05/03/22 14:09 Creatinine 2.1 mg/dL (0.7-1.2) H 05/03/22 14:09 GFR Calculation 38.7 mL/min (90-130) L 05/03/22 14:09 Glucose 790 mg/dL (65-115) H* 05/03/22 14:09 POC Glucose > 600 mg/dL (70-110) H* 05/03/22 15:06 Calculated Osmolality 314 mOsm/kg (285-295) H 05/03/22 14:09 Lactate 6.6 mmol/L (0.5-2.2) H* 05/03/22 14:20 Calcium 9.0 mg/dL (8.5-10.5) 05/03/22 14:09 Total Bilirubin 0.4 mg/dL (0.15-1.2) 05/03/22 14:09 AST 232 U/L (0-40) H 05/03/22 14:09 ALT 117 U/L (0-41) H 05/03/22 14:09 Alkaline Phosphatase 154 IU/L (40-130) H 05/03/22 14:09 Lactate Dehydrogenase Cancelled 05/03/22 14:09 Total Protein 5.3 g/dL (6.6-8.7) L 05/03/22 14:09 Albumin 3.7 g/dL (3.5-5.2) 05/03/22 14:09 Globulin 1.6 g/dL (1.3-4.6) 05/03/22 14:09 Lipase 14 U/L (13-60) 05/03/22 14:09 Acetaminophen < 5.0 ug/mL (10-30) L 05/03/22 14:20 Serum Ketones Positive (Negative) H 05/03/22 12:35 Imaging Data Other Imaging: Radiologist's impression: [place] [address] CT Scan Report Signed Patient: Jean Miller Unit #: [id number] : 1995 Age/Sex: 27 / M ADM Date: 05/03/22 Loc: ER Room/Bed: Attending Dr: Ordering Provider/Ordering MD: Carol Uriarte MD Date of Service: 05/03/22 Procedure(s): CT abdomen pelvis w con* [id number] Accession Number(s): [id number] Report Number: [id number] WS: [id number] CT ABDOMEN PELVIS TECHNIQUE: Contrast-enhanced CT of the abdomen and pelvis with coronal and sagittal reformatted images. CLINICAL INFORMATION: abd pain diffuse COMPARISON: None. DLP: 920.[address] scans at [facility] use at least one of these dose optimization techniques: automated exposure control; mA and/or kV adjustment per patient size (includes targeted exams where dose is matched to clinical indication); or iterative reconstruction. FINDINGS: Hepatomegaly with diffuse fatty infiltration and periportal edema extending peripherally. This is new since October 26, 2021. Fluid distended stomach with air-fluid level. Small amount of fluid in the gallbladder fossa likely related to liver congestion. Mild enhancement and thickening of small bowel loops. No evidence of obstruction. Marked urinary distention of the bladder. Lung bases are well aerated. Adrenal glands are normal. Normal pancreatic enhancement. Portal vein and splenic vein are patent. Hepatic veins are patent. Celiac and SMA are patent distally. Narrowing of the celiac origin due to arcuate ligament impingement. This is unchanged since 2017 Normal caliber abdominal aorta. Mild atheromatous disease in the distal abdominal aorta. Mild sigmoid constipation. No evidence of high-grade bowel obstruction. Simple RIGHT renal cyst. Edema within the central abdominal mesentery. CT/CT abdomen pelvis w con* [id number] IMPRESSION: ? 1.? Hepatomegaly with diffuse heterogeneous enhancement and periportal edema is new compared to October 26, 2021. Recommend correlation with liver function tests. This may be related to patient's DKA versus acute hepatitis due to various causes. 2.? Portal vein and splenic vein are patent. 3.? Diffuse small bowel enhancement and thickening likely related to DKA with hypovolemia 4.? Celiac and SMA are patent. Mild narrowing at the celiac origin due to median arcuate ligament impingement unchanged since 2017 5.? Small amount of fluid in the gallbladder fossa likely related to liver congestion. 6.? Small RIGHT renal cyst. 7.? Urinary distention of the bladder. 8.? No other acute findings. ? Notified Carol Uriarte MD at 05/03/2022 2:43 PM. ? ? Dictated By: Chilango Joseph MD Signed By: Chilango Joseph MD Signed Date/Time: 05/03/22 1443 DD/ 1404 Critical Care Time Critical Care Time: Critical Care Time: Yes Total Critical Care Time: 35 Attestation: The high probability of a clinically significant, sudden or life threatening deterioration of the patient's endocrinological system(s) required my full and direct attention, intervention and personal management. The critical care time is as shown. This time is in addition to time spent performing any reported procedures but includes the following: [x] Data and vital sign review and interpretation [x] Patient assessment, examination and intervention [x] Documentation [x] Medication orders and management Discharge Plan Discharge Patient Disposition: Admitted As Inpatient Clinical Impression: DKA (diabetic ketoacidosis) Condition: Stable Coding Level of Care Code ED Outsole Cementer for Chg Fwd Exam Comprehensive
[2022-05-03] MEDS: lactated ringers 1,000 ML 999 ML IV ×8 (12:42→15:16)
[2022-05-03 12:43] LABS: Arterial Blood Gas Hematocrit 45.2 % (42-52); Base Excess ABG -28.1 mmol/L (-2.0-2.0); Blood Gas Allen Test Pos; Blood Gas Operator Identificat CAK; Blood Gas Sample Site Brachial, right; Blood Gas Sample Type Arterial; Carboxyhemoglobin 0.7 %THgb (0.4-20.1); Glucose Level-ABG > 1080.0 mg/dL (70-115); HCO3 ABG 1.9 mmol/L (22-26); Ionized Calcium Level - ABG 1.1 mmol/L (1.1-1.4); Methemoglobin 1.1 % (0.4-1.5); Oxygen Device NC; Oxygen Saturation ABG 98.7; Potassium Level - ABG 6.3 mmol/L (3.5-5.0); Total Hemoglobin 14.7 g/dL (14-18)
[2022-05-03 12:44] LABS: ABG PCO2 8.5 mmHg (35-45); ABG PH Result 6.97 (7.35-7.45)
[2022-05-03 12:46] LABS: Hematocrit 51.4 % (42.0-52.0); Mean Corpuscular HGB Conc 29.2 g/dL (30.0-36.0); Mean Corpuscular Hemoglobin 30.9 pg (28.0-34.0); Platelet Count 480 10^3/cmm (130-400); Red Blood Count 4.85 10^6/uL (4.1-5.3); Red Cell Distribution Width 12.5 % (12.1-15.1)
[2022-05-03] MEDS: calcium gluconate 0.9% NaCL 1 GM/50 ML PREMIX IV ×2 (12:54→17:46)
[2022-05-03 12:55] LABS: Glucose Point of Care > 600 mg/dL (70-110)
--- NOTE | 2022-05-03 12:56 | CT_ITS ---
WS: [id number] CT ABDOMEN PELVIS TECHNIQUE: Contrast-enhanced CT of the abdomen and pelvis with coronal and sagittal reformatted image s. CLINICAL INFORMATION: abd pain diffuse COMPARISON: None. DLP: 920.[address] scans at [facility] use at least one of these dose optimization techniques: automated e xposure control; mA and/or kV adjustment per patient size (includes targeted exams where dose is matc hed to clinical indication); or iterative reconstruction. FINDINGS: Hepatomegaly with diffuse fatty infiltration and periportal edema extending peripherally. This is new since October 26, 2021. Fluid distended stomach with air-fluid level. Small amount of fluid in the g allbladder fossa likely related to liver congestion. Mild enhancement and thickening of small bowel l oops. No evidence of obstruction. Marked urinary distention of the bladder. Lung bases are well aerated. Adrenal glands are normal. Normal pancreatic enhancement. Portal vein an d splenic vein are patent. Hepatic veins are patent. Celiac and SMA are patent distally. Narrowing of the celiac origin due to arcuate ligament impingement. This is unchanged since 2017 Normal caliber abdominal aorta. Mild atheromatous disease in the distal abdominal aorta. Mild sigmoid constipation. No evidence of high-grade bowel obstruction. Simple RIGHT renal cyst. Edema within the central abdominal mesentery. CT/CT abdomen pelvis w con* [id number] IMPRESSION: 1. Hepatomegaly with diffuse heterogeneous enhancement and periportal edema is new compared to October 26, 2021. Recommend correlation with liver function te sts. This may be related to patient's DKA versus acute hepatitis due to various causes. 2. Portal vein and splenic vein are patent. 3. Diffuse small bowel enhancement and thickening likely related to DKA with h ypovolemia 4. Celiac and SMA are patent. Mild narrowing at the celiac origin due to media n arcuate ligament impingement unchanged since 2017 5. Small amount of fluid in the gallbladder fossa likely related to liver efrain estion. 6. Small RIGHT renal cyst. 7. Urinary distention of the bladder. 8. No other acute findings. Notified Carol Uriarte MD at 05/03/2022 2:43 PM.
[2022-05-03 13:13] LABS: Ketone (Acetest) Serum Positive (Negative)
[2022-05-03 13:16] LABS: Lactate (Lactic Acid level) 12.6 mmol/L (0.5-2.2)
[2022-05-03 13:29] LABS: Slide Review Slide Review Perform; White Blood Count 42.7 10^3/uL (4.0-10.0)
[2022-05-03 13:30] LABS: Absolute Neutrophil 32.5 10^3/cmm (1.4-6.5); Absolute Segmented Neutrophil 31.6 10/cmm (1.6-7.1); Band Neutrophils Absolute 0.9 10^3/cmm (0.0-1.2); Eosinophils 0 %; Lymphocytes 8 %; Lymphocytes Absolute 8.5 10^3/cmm (1.2-3.4); Monocytes Absolute 0.4 10^3/cmm (0.1-0.6); Platelet Estimate Increased (Normal); Segmented Neutrophils 74 %; Total Cells Counted 100 (0-100)
[2022-05-03] MEDS: insulin regular-human 250 UNIT in sodium chloride 0.9% 250 ML 15 UNIT IV (13:39)
[2022-05-03 13:46] LABS: Glucose Point of Care > 600 mg/dL (70-110)
[2022-05-03] MEDS: iohexol 350 mg/mL 100 mL Btl IV (13:53)
[2022-05-03] MEDS: vancomycin 1,000 MG in sodium chloride 0.9% 250 ML 250 MG IV (14:20)
[2022-05-03] MEDS: piperacillin-tazobactam 4.5 GM in sodium chloride 0.9% (plus) 50 ML IV (14:20)
[2022-05-03 14:34] LABS: Glucose Point of Care > 600 mg/dL (70-110)
[2022-05-03 15:10] LABS: Glucose Point of Care > 600 mg/dL (70-110)
[2022-05-03 15:18] LABS: Acetaminophen < 5.0 ug/mL (10-30)
--- NOTE | 2022-05-03 15:39 | PC.NURSE ---
LABORATORY BLOOD GLUCOSE READING >1080. DR. GONZALEZ VERBALLY ORDERED TO START INSULIN AT 15ML/HR (15UNITS/HR). DOSAGE VERIFIED BY MARY RODRIGUEZ AND THIS NURSE. RESULTS OF BLOOD SUGAR BY ACCUCHECK DEVICE ARE TOO HIGH FOR DEVICE TO GIVE A PRECISE NUMBER READING. DR. GONZALEZ VERBALLY ORDERED TO CONTINUE DOSE OF 15ML/HR UNTIL SECOND BLOOD GLUCOSE FROM COMPLETE METABOLIC PANEL RETURNS.
[2022-05-03 15:44] LABS: Lactate (Lactic Acid level) 6.6 mmol/L (0.5-2.2)
[2022-05-03 15:53] LABS: Alanine Aminotransferase 117 U/L (0-41); Albumin Level 3.7 g/dL (3.5-5.2); Alkaline Phosphatase 154 IU/L (40-130); Anion Gap 39.5 (5-19); Aspartate Amino Transferase 232 U/L (0-40); Blood Urea Nitrogen 44 mg/dL (6-20); Carbon Dioxide 10 mmol/L (22-29); Chloride 82 mmol/L (98-107); Glomerular Filtration Rate 38.7 mL/min (90-130); Potassium 4.5 mmol/L (3.5-5.1); Sodium 127 mmol/L (136-145); Total Protein 5.3 g/dL (6.6-8.7)
[2022-05-03 15:57] LABS: Globulin 1.6 g/dL (1.3-4.6); Lipase 14 U/L (13-60); Total Bilirubin 0.4 mg/dL (0.15-1.2)
[2022-05-03 16:01] LABS: Osmolality Calculated 314 mOsm/kg (285-295)
[2022-05-03 16:06] LABS: Glucose 790 mg/dL (65-115)
--- NOTE | 2022-05-03 16:20 | PC.NURSE ---
PT PLACED ON CONTINUOUS NIBP, SPO2, AND CM
--- NOTE | 2022-05-03 16:24 | PM.HP ---
Providers/Chief Complaint Primary Care Provider: Peace Brothers MD Chief Complaint: HYPERGLYCEMIA/ HYPOTENSIVE History of Present Illness Jean Miller is a 27 year old male with PMH of DM1 on insulin pump at home was admitted with c/o nausea, vomitting, shortness of breath and fatigue going on since this morning.?Patient was doing well till yesterday Earlier today, patient removed his insulin pump and since then has had confusion and was found down in the bathroom by family. He has h/ recurrent admissions for DKA. Upon arrival in the ER he was worked up for above mention complain. Pertinent Imaging studies : CT abdomen pelvis w con: Hepatomegaly with diffuse heterogeneous enhancement and periportal edema is new compared to October 26, 2021. Recommend correlation with liver function tests. This may be related to patient's DKA versus acute hepatitis due to various causes.Portal vein and splenic vein are patent.Diffuse small bowel enhancement and thickening likely related to DKA with hypovolemiaCeliac and SMA are patent. Mild narrowing at the celiac origin due to median arcuate ligament impingement unchanged since 2017 Small amount of fluid in the gallbladder fossa likely related to liver congestion.Small RIGHT renal cyst. Xray chest : No Infiltrates Pertinent Labs : WBC : 42, H&H : 15/51 , PLT : 480 , Na: 127 , K 4.5 , BUN/SCR : 44/ 2.1 , Lactic acid : 6.6 , Review of Systems General: Reports: 10 or more systems reviewed and unremarkable except in HPI and below Const: Denies: fever(s), chills, body aches, change in appetite or diaphoresis Card: Denies: palpitations, edema, swelling of feet/ankles, dyspnea on exertion, orthopnea or leg pain with exertion Resp: Denies: dyspnea, productive cough, wheezing or pain on inspiration GI: Denies: abdominal pain, nausea, vomiting, diarrhea or constipation : Denies: flank pain or difficulty urinating Musc: Denies: back pain, extremity pain or extremity swelling Neuro: Denies: headache(s), difficulty walking or confusion Medications/Allergies Home Medications Medication Instructions Recorded Confirmed Last Taken Type insulin detemir U-100 100 unit/mL 20 unit (0.2 mL) SUBCUT DAILY 30 03/07/22 05/03/22 Unknown Rx (3 mL) subcutaneous pen (Levemir Days #9 ml FlexTouch U-100 Insulin) insulin regular human 100 unit/mL See Rx Instructions .ROUTE 03/07/22 05/03/22 Unknown Rx (3 mL) subcutaneous pen (Novolin R .COMPLEX #15 ml Flexpen) blood sugar diagnostic (OneTouch #300 ea 04/02/22 05/03/22 Unknown Rx Ultra Test) blood-glucose meter (OneTouch #1 ea 04/02/22 05/03/22 Unknown Rx Ultra2 Meter) Allergies Allergy/AdvReac Type Severity Reaction Status Date / Time No Known Allergies Allergy Verified 05/03/22 13:21 PFSH Acute PFSH: Medical History Diabetes type 1, uncontrolled History of DKA Long-term insulin use Psychiatric care Surgical History No history of previous surgery none known Family History Other Family history unknown Social History Smoking and tobacco status: current every day smoker cigarettes Packs smoked per day: 1 Alcohol intake: former Current occupational status: employed Vitals/I&O/Wt Last Vital Signs Temp 97.9 F 05/03/22 13:19 Pulse 100 05/03/22 13:19 Resp 26 H 05/03/22 13:19 BP 92/46 05/03/22 13:19 Pulse Ox 94 05/03/22 13:19 05/03/22 05/03/22 05/03/22 06:59 14:59 22:59 Intake Total 4649.4 / 4649.4 1050 / 5699.4 Balance 4649.4 / 4649.4 1050 / 5699.4 Weight last 48 hrs Weight 62.596 kg Physical Exam Const: COMMON NORMALS: patient oriented x3 HENMT: COMMON NORMALS: normocephalic and atraumatic HEAD & SCALP: normocephalic and atraumatic EXTERNAL EAR: Yes external ears normal Chest: CHEST: Yes Symmetrical chest wall rise Resp: COMMON NORMALS: normal respiratory effort, No retractions and clear to auscultation bilaterally EFFORT & INSPECTION: Yes symmetric chest movement AUSCULTATION: clear to auscultation bilaterally Cardio: COMMON NORMALS: regular rate, regular rhythm, S1 normal heart sound present, S2 normal heart sound present, No gallops present (Cardio), No murmurs present (Cardio), No rub (Cardio) and Peripheral pulses 2+ throughout RATE: regular rate RHYTHM: regular rhythm HEART SOUNDS: S1 normal heart sound present and S2 normal heart sound present PERIPHERAL PULSES: Peripheral pulses 2+ throughout GI: COMMON NORMALS: Normal to inspection, nondistended, normoactive bowel sounds present, Soft to palpation, non-tender, No hepatosplenomegaly present and no masses AUSCULTATION: Yes normoactive bowel sounds PALPATION: Yes Soft to palpation and Yes No hepatosplenomegaly present RECTAL EXAM: Yes deferred Extremity: COMMON NORMALS: no clubbing, cyanosis or edema and no pedal edema Neuro: COMMON NORMALS: patient oriented x3 Data : 05/03/22 12:35 05/03/22 14:09 Micro: Microbiology 05/03/22 13:08 Blood Culture - Preliminary Blood SPECIMEN COLLECTED 05/03/22 12:58 Blood Culture - Preliminary Blood SPECIMEN COLLECTED A&P Assessment and plan (1) DKA (diabetic ketoacidosis): Status: Acute (2) Leukocytosis: Status: Acute (3) Transaminitis: Status: Acute (4) Metabolic acidosis: Status: Acute (5) Lactic acidosis: Status: Acute (6) Pseudohyponatremia: Status: Acute (7) MICHAEL (acute kidney injury): Status: Acute Plan 27 year old male with PMH of DM1 on insulin pump at home was admitted with c/o nausea, vomitting, shortness of breath and fatigue going on since this morning.?Patient was doing well till yesterday Earlier today, patient removed his insulin pump and since then has had confusion and was found down in the bathroom by family. Assessment : DKA Increased anion Gap metabolic Acidosis likely 2/2 DKA Lactic Acidosis Pre renal MICHAEL likely 2/2 to severe dehydration 2/2 DKA Leukocytosis LIKELY 2/2 TO DEHYDRATION Transaminitis Plan: Currently on DKA Protocol Follow Blood Culture Repeat Lactic Acid will keep empirically on zosyn Monitor CMP Follow Hepatitis Panel Code Status :Full code DVT PPX: On lovenox Attestations Medical Necessity Statement*: Patient needs to be in hospital for the management of DKA. Anticipated LOS Greater then 2 midnights. Time Spent in Patient Care: Greater than 35 minutes (>than 50% of time spent in counselling and/or direct pt care on unit). Critical Care Time: The high probability of a clinically significant, sudden or life threatening deterioration of the patient's [] system(s) required my full and direct attention, intervention and personal management. The critical care time is as shown. This time is in addition to time spent performing any reported procedures but includes the following: [x] Data and vital sign review and interpretation [x] Patient assessment, examination and intervention [x] Documentation [x] Medication orders and management Critical Care Time (min): 45 Coding Level of Care Code Acute Field Identification Specialist for g Fwd Exam Detailed Diagnoses DKA (diabetic ketoacidosis) E11.10 Leukocytosis D72.829 Transaminitis R74.01 Metabolic acidosis E87.2 Lactic acidosis E87.2 Pseudohyponatremia R79.89 MICHAEL (acute kidney injury) N17.9
[2022-05-03 17:04] LABS: Add Urine Microscopic? YES; Bilirubin Urine Neg (Negative); Blood Urine Neg (Negative); Glucose Urine UA 4+ (Normal); Ketones Urine 2+ (Negative); Leukocyte Esterase Urine Negative (Negative); Nitrate Urine Negative (Negative); Protein Urine Trace (Negative); RBC Urine 0-4 /hpf (0-2); Squamous Epithelial Cell Urine 0-4 /hpf (0-5); Urine Appearance Clear (CLEAR); Urine Color Colorless (Yellow); Urobilinogen Urine Norm (Negative); WBC Urine 0-4 /hpf (0-5); pH Urine 5 (5-7)
[2022-05-03 17:05] LABS: Add Urine Culture? No
[2022-05-03 17:20] LABS: Glucose Point of Care 553 mg/dL (70-110)
[2022-05-03] MEDS: sodium chloride 0.9% 1,000 ML 125 ML IV (17:46)
[2022-05-03] MEDS: enoxaparin 40 mg/0.4 mL Syringe SUBCUT (17:47)
[2022-05-03 18:00] LABS: Glucose Point of Care 467 mg/dL (70-110)
[2022-05-03 19:11] LABS: Glucose Point of Care 351 mg/dL (70-110)
[2022-05-03 19:56] LABS: ABG PCO2 34.4 mmHg (35-45); ABG PH Result 7.47 (7.35-7.45); Alveolar-Arterial Oxygen Gradi 4.2 mmHg (5-10); Arterial Blood Gas Hematocrit 41.8 % (42-52); Base Excess ABG 1.4 mmol/L (-2.0-2.0); Blood Gas Allen Test Pos; Blood Gas Sample Site Radial, right; Blood Gas Sample Type Arterial; Carboxyhemoglobin 0.8 %THgb (0.4-20.1); HCO3 ABG 24.8 mmol/L (22-26); HGB O2 Sat 95.9 % (95-100); Ionized Calcium Level - ABG 1.3 mmol/L (1.1-1.4); Methemoglobin 0.8 % (0.4-1.5); Oxygen Saturation ABG 97.5; PO2 ABG 73.3 mmHg (80.0-100.0); Potassium Level - ABG 3.2 mmol/L (3.5-5.0); Total Hemoglobin 13.7 g/dL (14-18)
[2022-05-03 21:03] LABS: Anion Gap 16.5 (5-19); Blood Urea Nitrogen 32 mg/dL (6-20); Calcium 9.3 mg/dL (8.5-10.5); Carbon Dioxide 25 mmol/L (22-29); Chloride 98 mmol/L (98-107); Glomerular Filtration Rate 61.7 mL/min (90-130); Glucose 220 mg/dL (65-115); Osmolality Calculated 296 mOsm/kg (285-295); Potassium 3.5 mmol/L (3.5-5.1); Sodium 136 mmol/L (136-145)
--- NOTE | 2022-05-03 21:21 | PC.NURSE ---
1999 - Received patient to room from ED via stretcher. Patient remains drowsy but easily awakens and answers questions. V/S stable, CM = ST. No reports of pain or discomfort. Notified patient that the doctor ordered a solorzano cath to be placed and patient becomes very upset and states no you are not putting a solorzano in me. Urinal given to patient and instructed patient that if he was unable to use the urinal then I would need to place the solorzano. 2109 - Attempted to notify Dr. Bardales of patients current chemistry results and blood glucose level with no success. Dr. Godinez called to check on patient. IV fluids changed to D5NS with 40meq KCL at 50ml/h.
[2022-05-03 21:26] LABS: Glucose Point of Care 191 mg/dL (70-110)
[2022-05-03 21:26] LABS: Glucose Point of Care 256 mg/dL (70-110)
[2022-05-03] MEDS: dextrose 5%-ns + KCl 40 40 MEQ/1,000 ML BAG 50 MEQ IV (21:42)
[2022-05-03] MEDS: piperacillin-tazobactam 3.375 GM in sodium chloride 0.9% (plus) 50 ML IV (22:42)
[2022-05-03 22:51] LABS: Glucose Point of Care 102 mg/dL (70-110)
[2022-05-03 22:51] LABS: Glucose Point of Care 146 mg/dL (70-110)
[2022-05-04] VITALS (34 sets, daily range): BP systolic 116–154; BP diastolic 82–108; PULSE 70–117; RESP 9–25; TEMP -12.9–37.3; O2SAT 93–100
[2022-05-04 00:20] LABS: Glucose Point of Care 100 mg/dL (70-110)
[2022-05-04 01:06] LABS: Glucose Point of Care 99 mg/dL (70-110)
[2022-05-04 01:32] LABS: Anion Gap 13.7 (5-19); Blood Urea Nitrogen 27 mg/dL (6-20); Calcium 8.9 mg/dL (8.5-10.5); Carbon Dioxide 26 mmol/L (22-29); Chloride 104 mmol/L (98-107); Glucose 102 mg/dL (65-115); Osmolality Calculated 295 mOsm/kg (285-295); Potassium 3.7 mmol/L (3.5-5.1); Sodium 140 mmol/L (136-145)
[2022-05-04 01:37] LABS: Hepatitis B Surface Antigen Non-Reactive (Nonreactive); Hepatitis C Virus Antibody Non-Reactive (Nonreactive)
[2022-05-04 02:12] LABS: Glucose Point of Care 104 mg/dL (70-110)
--- NOTE | 2022-05-04 02:33 | PC.NURSE ---
Notified Dr. Bardales of patient current chemistry results. Anion gap currently 13.7. Patient reports that he does not take any long acting insulin currently and is only using his insulin pump for boluses after counting carbs. Reports that his insulin pump does not have a basal rate programed. Dr. Bardales states that he will review patients current labs and medications and will order long acting insulin and sliding scale accordingly.
[2022-05-04] MEDS: insulin glargine 100 units/1 mL 20 UNIT SUBCUT ×2 (03:20→14:34)
--- NOTE | 2022-05-04 03:23 | PC.NURSE ---
Verified with Dr. Bardales that he wants to continue patients IV fluids. Order given continue until patient is eating better.
[2022-05-04 03:25] LABS: Glucose Point of Care 122 mg/dL (70-110)
[2022-05-04 04:24] LABS: Glucose Point of Care 274 mg/dL (70-110)
[2022-05-04 04:31] LABS: Basophils # 0.1 10^3/uL (0.0-0.1); Basophils % 0.3 %; Hematocrit 39.4 % (42.0-52.0); Hemoglobin 13.5 g/dL (11.7-16.6); Lymphocytes # 2.5 10^3/uL (0.8-4.8); Lymphocytes % 10.7 %; Mean Corpuscular HGB Conc 34.3 g/dL (30.0-36.0); Mean Corpuscular Hemoglobin 30.3 pg (28.0-34.0); Mean Corpuscular Volume 88.3 fl (80-94); Mean Platelet Volume 11.7 fL (7.4-10.4); Monocytes # 1.9 10^3/uL (0.2-0.9); Monocytes % 7.9 %; Neutrophils # 18.63 10^3/uL (1.8-7.7); Neutrophils % 79.6 %; Nucleated Red Blood Cells % 0 %; Platelet Count 269 10^3/cmm (130-400); Red Blood Count 4.46 10^6/uL (4.1-5.3); Red Cell Distribution Width 12.5 % (12.1-15.1); White Blood Count 23.4 10^3/uL (4.0-10.0)
[2022-05-04 04:56] LABS: Alanine Aminotransferase 81 U/L (0-41); Albumin Level 3.2 g/dL (3.5-5.2); Alkaline Phosphatase 107 IU/L (40-130); Blood Urea Nitrogen 26 mg/dL (6-20); Calcium 8.6 mg/dL (8.5-10.5); Carbon Dioxide 25 mmol/L (22-29); Chloride 100 mmol/L (98-107); Globulin 1.5 g/dL (1.3-4.6); Glucose 187 mg/dL (65-115); Magnesium 1.6 mg/dL (1.7-2.3); Osmolality Calculated 294 mOsm/kg (285-295); Phosphorus 4.4 mg/dL (2.5-4.5); Sodium 137 mmol/L (136-145); Total Bilirubin 0.5 mg/dL (0.15-1.2); Total Protein 4.7 g/dL (6.6-8.7)
[2022-05-04 05:03] LABS: Procalcitonin 9.82 ng/mL (0-0.5)
[2022-05-04 05:12] LABS: Anion Gap 15.9 (5-19); Aspartate Amino Transferase 89 U/L (0-40); Potassium 3.9 mmol/L (3.5-5.1)
[2022-05-04 05:31] LABS: Glucose Point of Care 226 mg/dL (70-110)
[2022-05-04 05:40] LABS: Lactic Sepsis W/Reflex 1.1 mmol/L (0.5-2.2)
[2022-05-04] MEDS: sodium chlor 0.45% +KCl 20 mEq 20 MEQ/1,000 ML BAG 75 MEQ IV (05:58)
[2022-05-04] MEDS: magnesium sulfate premix 2 GM/50 ML PIGGYBACK IV (05:59)
[2022-05-04] MEDS: lidocaine 1% 5 ML in potassium chloride premix 100 ML 50 ML IV (05:59)
[2022-05-04] MEDS: piperacillin-tazobactam 3.375 GM in sodium chloride 0.9% (plus) 50 ML IV ×3 (06:29→22:34)
[2022-05-04 07:26] LABS: Glucose Point of Care 247 mg/dL (70-110)
[2022-05-04] MEDS: insulin lispro 100 unit/1 mL SUBCUT ×4 (08:58→22:35)
[2022-05-04 10:16] LABS: Hepatitis A Antibody IgM Non-Reactive (Nonreactive); Hepatitis B Core IgM Non-Reactive (Nonreactive)
[2022-05-04 12:23] LABS: Glucose Point of Care 550 mg/dL (70-110)
--- NOTE | 2022-05-04 12:38 | PC.CHAP ---
Pastoral Care Encounter/Spiritual Assessment Type of Contact [] Declined resort housekeeper visit [] Patient/Family/Request visit [] Outpatient visit [] Follow-up visit [] Physician referral [] Code/Alert [x] Routine visit [] Staff referral [] Actively dying [x] Patient sleeping [] Family support [] [] Out of room [] Palliative care [] [] Receiving care in room [] Pre-surgical visit [] Trauma [] Long length of stay [x] ICU visit [] Other: Relational/Emotional Strength [] Patient feels connected with others/family/visitors/staff [] Distress [] Loneliness/isolation [] Abandonment Spirituality of Patient [] Person of Lea [] Attends Confucianist of their Lea [] Believes in Prayer [] Reads Bible or Yazidi materials [] There are Spiritual issues to be addressed Arboriculture Teacher Interventions [x] Prayer [] Active listening [] Non-anxious presence [] Spiritual/emotional support [] Crisis/trauma care [] Spiritual counseling [] Bereavement support [] Provided bereavement packet [] Provided Bible/devotional materials [] Provided toy/stuffed animal, coloring book to patient or family member [] Provided Communion [] Anointing/[place] [] Salvation [x] Completed spiritual assessment [] Other: Impact on Illness or Injury [] Angry [] Fearful [] Anxious [] Often cries [] Exhaustion [] Unable to work [] Unable to attend baptism [] Unable to walk/stand [] Unable to read [] Unable to drive [] Unable to eat/drink [] Unable to sleep [] Unable to be with family [] Patient intubated [] Other: Summary Time spent with patient
[2022-05-04] MEDS: enoxaparin 40 mg/0.4 mL Syringe SUBCUT (17:19)
--- NOTE | 2022-05-04 18:04 | P.PN_ITS ---
Subjective Subjective: Patient was seen and examined this morning overall he is doing better, alert awake oriented tolerating diet anion gap is closed, WBC count is decreasing lactic acid has normalized. MICHAEL has resolved Medications: Medication Review Details: Generic Name Dose Route Start Last Admin Trade Name Eloisa PRN Reason Stop Dose Admin Enoxaparin Sodium 40 mg 05/03/22 17:00 05/04/22 17:19 Enoxaparin 40 Mg /0.4 Ml Syringe SUBCUT 40 mg Q24H JAMES Administration Piperacillin Sod/T azobactam 50 mls @ 12.5 mls /hr 05/03/22 20:00 05/04/22 15:21 Sod 3.375 gm/ So dium Chloride IV 12.5 mls/hr Q8H JAMES Administration Protocol Insulin Human Lisp ro 0 unit 05/04/22 08:00 05/04/22 17:49 Insulin Lispro 1 00 Unit/1 Ml SUBCUT 6 unit WM&BEDTIME JAMES Administration Protocol Vitals/I&O/Wt Last Vital Signs Temp 97.7 F 05/04/22 12:41 Pulse 102 H 05/04/22 14:07 Resp 13 05/04/22 14:07 BP 154/103 05/04/22 14:07 Pulse Ox 95 05/04/22 14:07 05/04/22 05/04/22 05/04/22 06:59 14:59 22:59 Intake Total 1281.655 / 8665.102 650 / 650 50 / 700 Output Total 850 / 850 1900 / 1900 Balance 431.655 / 7815.102 -1250 / -1250 50 / -1200 Weight last 48 hrs Weight 62.596 kg Physical Exam Const: COMMON NORMALS: patient oriented x3 HENMT: COMMON NORMALS: normocephalic, atraumatic and external ears normal HEAD & SCALP: normocephalic and atraumatic EXTERNAL EAR: Yes external ears normal Chest: CHEST: Yes Symmetrical chest wall rise Resp: COMMON NORMALS: normal respiratory effort, No retractions and clear to auscultation bilaterally EFFORT & INSPECTION: Yes symmetric chest movement AUSCULTATION: clear to auscultation bilaterally Cardio: COMMON NORMALS: regular rate, regular rhythm, S1 normal heart sound present, S2 normal heart sound present, No gallops present (Cardio), No murmurs present (Cardio), No rub (Cardio) and Peripheral pulses 2+ throughout RATE: regular rate RHYTHM: regular rhythm HEART SOUNDS: S1 normal heart sound present and S2 normal heart sound present PERIPHERAL PULSES: Peripheral pulses 2+ throughout GI: COMMON NORMALS: Normal to inspection, nondistended, normoactive bowel sounds present, Soft to palpation, non-tender, No hepatosplenomegaly present and no masses AUSCULTATION: Yes normoactive bowel sounds PALPATION: Yes Soft to palpation and Yes No hepatosplenomegaly present RECTAL EXAM: Yes deferred Extremity: COMMON NORMALS: no clubbing, cyanosis or edema and no pedal edema Neuro: COMMON NORMALS: patient oriented x3 Data : 05/04/22 03:38 05/04/22 03:38 Micro: Microbiology 05/03/22 13:08 Blood Culture - Preliminary Blood NEGATIVE TO DATE 05/03/22 12:58 Blood Culture - Preliminary Blood NEGATIVE TO DATE A&P Assessment and plan (1) DKA (diabetic ketoacidosis): Status: Acute (2) Leukocytosis: Status: Acute (3) Transaminitis: Status: Acute (4) Metabolic acidosis: Status: Acute (5) Lactic acidosis: Status: Acute (6) Pseudohyponatremia: Status: Acute (7) MICHAEL (acute kidney injury): Status: Acute Plan 27 year old male with PMH of DM1 on insulin pump at home was admitted with c/o nausea, vomitting, shortness of breath and fatigue going on since this morning.?Patient was doing well till yesterday Earlier today, patient removed his insulin pump and since then has had confusion and was found down in the bathroom by family. Assessment : DKA Increased anion Gap metabolic Acidosis likely 2/2 DKA Lactic Acidosis : Resolved Pre renal MICHAEL likely 2/2 to severe dehydration 2/2 DKA : Resolved Leukocytosis LIKELY 2/2 TO DEHYDRATION Transaminitis : Improving Plan: Was on DKA Protocol : Has been switched to Lantus and medium dose sliding scale: As anion gap is closed and patient is currently, eating. Monitor fingerstick glucose Carb consistent diet Blood Culture : NTD Repeat Lactic Acid : 1.1 will keep empirically on zosyn Monitor CMP Hepatitis Panel : Negative Code Status :Full code DVT PPX: On lovenox Attestations Medical Necessity Statement*: Patient needs to be in hospital for management of DKA, on empiric antibiotics, pending blood cultures. Coding Level of Care Code Acute Caramel Cutter Helper for Chg Fwd Exam Detailed Diagnoses DKA (diabetic ketoacidosis) E11.10 Leukocytosis D72.829 Transaminitis R74.01 Metabolic acidosis E87.2 Lactic acidosis E87.2 Pseudohyponatremia R79.89 MICHAEL (acute kidney injury) N17.9
--- NOTE | 2022-05-04 18:37 | PC.NURSE ---
SHift SUmmary: patient has rested oin bed throughout most of the day. Up to a chair for meals. Remains alert and oriented to person, place, time, and situation. Insulin dosing had to be increased today, but still remains on Sbuq insulin.
--- NOTE | 2022-05-04 18:45 | PC.NURSE ---
Transferred patient to [facility] surge room 251 bed 1. report given to marshal. Belongings sent with patient include shorts, and personal glucose monitor/infuser. Patient is alert and oriented to person, place, time, and situation. Vitals before transfer: 144/102, HR 93, 99% on room air.
[2022-05-04 21:29] LABS: Glucose Point of Care 295 mg/dL (70-110)
[2022-05-04 22:03] LABS: Glucose Point of Care 188 mg/dL (70-110)
[2022-05-05] VITALS: BP 144/88; PULSE 100; RESP 16; TEMP 36.9; O2SAT 97
[2022-05-05 03:03] LABS: Glucose Point of Care 94 mg/dL (70-110)
[2022-05-05 04:00] VITALS: BP 133/85; PULSE 82; RESP 14; TEMP 36.7; O2SAT 96
[2022-05-05 06:00] VITALS: PULSE 70
[2022-05-05 06:18] LABS: Glucose Point of Care 145 mg/dL (70-110)
[2022-05-05 07:00] VITALS: PULSE 89; O2SAT 98
[2022-05-05 07:08] LABS: Basophils % 0.3 %; Eosinophils % 0.4 %; Hematocrit 38.2 % (42.0-52.0); Hemoglobin 12.5 g/dL (11.7-16.6); Lymphocytes # 2.5 10^3/uL (0.8-4.8); Lymphocytes % 22.6 %; Mean Corpuscular HGB Conc 32.7 g/dL (30.0-36.0); Mean Corpuscular Hemoglobin 30.1 pg (28.0-34.0); Mean Platelet Volume 12.2 fL (7.4-10.4); Monocytes # 0.7 10^3/uL (0.2-0.9); Monocytes % 6.4 %; Neutrophils # 7.64 10^3/uL (1.8-7.7); Nucleated Red Blood Cells % 0 %; Platelet Count 190 10^3/cmm (130-400); Red Blood Count 4.15 10^6/uL (4.1-5.3); Red Cell Distribution Width 13.2 % (12.1-15.1); White Blood Count 10.9 10^3/uL (4.0-10.0)
[2022-05-05 07:18] LABS: Alanine Aminotransferase 61 U/L (0-41); Alkaline Phosphatase 106 IU/L (40-130); Anion Gap 9.8 (5-19); Aspartate Amino Transferase 37 U/L (0-40); Blood Urea Nitrogen 15 mg/dL (6-20); Calcium 8.6 mg/dL (8.5-10.5); Carbon Dioxide 30 mmol/L (22-29); Chloride 99 mmol/L (98-107); Globulin 1.8 g/dL (1.3-4.6); Glomerular Filtration Rate 164.2 mL/min (90-130); Glucose 133 mg/dL (65-115); Osmolality Calculated 283 mOsm/kg (285-295); Phosphorus 3.2 mg/dL (2.5-4.5); Potassium 3.8 mmol/L (3.5-5.1); Sodium 135 mmol/L (136-145); Total Bilirubin 0.4 mg/dL (0.15-1.2); Total Protein 4.8 g/dL (6.6-8.7)
[2022-05-05 07:54] VITALS: BP 136/94; PULSE 78; RESP 16; TEMP 36.8; O2SAT 97
[2022-05-05] MEDS: insulin lispro 100 unit/1 mL SUBCUT (08:27)
[2022-05-05] MEDS: piperacillin-tazobactam 3.375 GM in sodium chloride 0.9% (plus) 50 ML IV (08:27)
--- NOTE | 2022-05-05 10:15 | PM.DCS ---
Discharge Providers Date of Admission: 05/03/22 16:05 Date of Discharge: May 05, 2022 Attending Provider at Admission: Aden Godinez MD Attending Provider at Discharge: Aden Godinez MD Primary Care Provider: Peace Brothers MD Diagnoses at Discharge Discharge Diagnosis (1) DKA (diabetic ketoacidosis): Status: Acute (2) Leukocytosis: Status: Acute (3) Transaminitis: Status: Acute (4) Metabolic acidosis: Status: Acute (5) Lactic acidosis: Status: Acute (6) Pseudohyponatremia: Status: Acute (7) MICHAEL (acute kidney injury): Status: Acute Reason for Visit Reason for Visit: HYPERGLYCEMIA/ HYPOTENSIVE Hospital Course Hospital Course HPI: Jean Miller is a 27 year old male with PMH of DM1 on insulin pump at home was admitted with c/o nausea, vomitting, shortness of breath and fatigue going on since this morning.?Patient was doing well till yesterday? Earlier today, patient removed his insulin pump and since then has had confusion and was found down in the bathroom by family. He has h/ recurrent admissions for DKA. Upon arrival in the ER he was worked up for above mention complain. Pertinent Imaging studies : CT abdomen pelvis w con: Hepatomegaly with diffuse heterogeneous enhancement and periportal edema is new compared to October 26, 2021. Recommend correlation with liver function tests. This may be related to patient's DKA versus acute hepatitis due to various causes.Portal vein and splenic vein are patent.Diffuse small bowel enhancement and thickening likely related to DKA with hypovolemiaCeliac and SMA are patent. Mild narrowing at the celiac origin due to median arcuate ligament impingement unchanged since 2017 Small amount of fluid in the gallbladder fossa likely related to liver congestion.Small RIGHT renal cyst. Xray chest : No Infiltrates Pertinent Labs : WBC : 42, H&H : 15/51 , PLT : 480 , Na: 127 , K 4.5 , BUN/SCR :? 44/ 2.1 , Lactic acid : 6.6 , Hospital course: Patient was admitted for the management of DKA Increased anion Gap metabolic Acidosis likely 2/2 DKA Lactic Acidosis Pre renal MICHAEL likely 2/2 to severe dehydration 2/2 DKA Leukocytosis LIKELY 2/2 TO DEHYDRATION , Transaminitis. He was kept on DKA protocol, once anion gap was closed , and he was able to tolerate p.o. diet, he was switched to long and short acting insulin, fingerstick glucose were monitored, blood cultures were negative at the time of discharge, he was empirically kept on Zosyn, given significant leukocytosis likely secondary to dehydration, no antibiotic was continued on discharge, prerenal MICHAEL secondary to severe dehydration improved with IV hydration, lactic acidosis has resolved at the time of discharge. Overall patient responded well to medical management and was discharged in stable condition to home he was continued on his home, insulin pump on discharge. Physical Exam Const: COMMON NORMALS: patient oriented x3 HENMT: COMMON NORMALS: normocephalic, atraumatic and external ears normal HEAD & SCALP: normocephalic and atraumatic EXTERNAL EAR: Yes external ears normal Chest: CHEST: Yes Symmetrical chest wall rise Resp: COMMON NORMALS: normal respiratory effort, No retractions and clear to auscultation bilaterally EFFORT & INSPECTION: Yes symmetric chest movement AUSCULTATION: clear to auscultation bilaterally Cardio: COMMON NORMALS: regular rate, regular rhythm, S1 normal heart sound present, S2 normal heart sound present, No gallops present (Cardio), No murmurs present (Cardio), No rub (Cardio) and Peripheral pulses 2+ throughout RATE: regular rate RHYTHM: regular rhythm HEART SOUNDS: S1 normal heart sound present and S2 normal heart sound present PERIPHERAL PULSES: Peripheral pulses 2+ throughout GI: COMMON NORMALS: Normal to inspection, nondistended, normoactive bowel sounds present, Soft to palpation, non-tender, No hepatosplenomegaly present and no masses AUSCULTATION: Yes normoactive bowel sounds PALPATION: Yes Soft to palpation and Yes No hepatosplenomegaly present RECTAL EXAM: Yes deferred Extremity: COMMON NORMALS: no clubbing, cyanosis or edema and no pedal edema Neuro: COMMON NORMALS: patient oriented x3 Discharge Data Studies Completed and Pending Completed Studies During Hospitalization Category Date Time Status CT abdomen pelvis w con* [id number] Urgent Cat Scan 05/03/22 12:56 Completed XR chest 1V portable [id number] Urgent Exams 05/03/22 12:26 Completed Pending at discharge Category Date Time Status Blood Culture Stat Lab 05/03/22 13:08 Results Complete Blood Count w/Auto AM LABS Lab 05/06/22 04:00 Ordered Comprehensive Metabolic Panel AM LABS Lab 05/06/22 04:00 Ordered Phosphorus AM LABS Lab 05/06/22 04:00 Ordered Radiology Impressions Chest X-Ray 05/03/22 12:26 IMPRESSION: No acute chest abnormality. Abdomen/Pelvis CT 05/03/22 12:56 IMPRESSION: 1. Hepatomegaly with diffuse heterogeneous enhancement and periportal edema is new compared to October 26, 2021. Recommend correlation with liver function tests. This may be related to patient's DKA versus acute hepatitis due to various causes. 2. Portal vein and splenic vein are patent. 3. Diffuse small bowel enhancement and thickening likely related to DKA with hypovolemia 4. Celiac and SMA are patent. Mild narrowing at the celiac origin due to median arcuate ligament impingement unchanged since 2017 5. Small amount of fluid in the gallbladder fossa likely related to liver congestion. 6. Small RIGHT renal cyst. 7. Urinary distention of the bladder. 8. No other acute findings. Notified Carol Uriarte MD at 05/03/2022 2:43 PM. Laboratory Results WBC 10.9 10^3/uL (4.0-10.0) H 05/05/22 05:57 RBC 4.15 10^6/uL (4.1-5.3) 05/05/22 05:57 Hgb 12.5 g/dL (11.7-16.6) 05/05/22 05:57 Hct 38.2 % (42.0-52.0) L 05/05/22 05:57 MCV 92.0 fl (80-94) 05/05/22 05:57 MCH 30.1 pg (28.0-34.0) 05/05/22 05:57 MCHC 32.7 g/dL (30.0-36.0) 05/05/22 05:57 RDW 13.2 % (12.1-15.1) 05/05/22 05:57 Plt Count 190 10^3/cmm (130-400) 05/05/22 05:57 MPV 12.2 fL (7.4-10.4) H 05/05/22 05:57 Neut % (Auto) 70.0 % 05/05/22 05:57 Lymph % (Auto) 22.6 % 05/05/22 05:57 [place] % (Auto) 6.4 % 05/05/22 05:57 Eos % (Auto) 0.4 % 05/05/22 05:57 Baso % (Auto) 0.3 % 05/05/22 05:57 Neut # (Auto) 7.64 10^3/uL (1.8-7.7) 05/05/22 05:57 Lymph # (Auto) 2.5 10^3/uL (0.8-4.8) 05/05/22 05:57 [place] # (Auto) 0.7 10^3/uL (0.2-0.9) 05/05/22 05:57 Eos # (Auto) 0.0 10^3/uL (0.0-0.8) 05/05/22 05:57 Baso # (Auto) 0.0 10^3/uL (0.0-0.1) 05/05/22 05:57 Nucleated RBC % (auto) 0 % 05/05/22 05:57 Total Counted 100 (0-100) 05/03/22 12:35 Atypical Lymphs % 12.0 % (0-5) H 05/03/22 12:35 Absolute Neutrophils 32.5 10^3/cmm (1.4-6.5) H 05/03/22 12:35 Segmented Neutrophils 74 % 05/03/22 12:35 Abs Segm Neuts (Man) 31.6 10/cmm (1.6-7.1) H 05/03/22 12:35 Band Neutrophils 2.0 % 05/03/22 12:35 Abs Band Neuts (Man) 0.9 10^3/cmm (0.0-1.2) 05/03/22 12:35 Absolute Lymphocytes 8.5 10^3/cmm (1.2-3.4) H 05/03/22 12:35 Lymphocytes (Manual) 8 % 05/03/22 12:35 Monocytes (Manual) 1.0 % 05/03/22 12:35 Absolute Monocytes 0.4 10^3/cmm (0.1-0.6) 05/03/22 12:35 Eosinophils (Manual) 0 % 05/03/22 12:35 Absolute Eosinophils 0.0 10^3/cmm (0.0-0.7) 05/03/22 12:35 Basophils (Manual) 0.0 % 05/03/22 12:35 Absolute Basophils 0.0 10^3/cmm (0.0-0.2) 05/03/22 12:35 Metamyelocytes 1.0 % 05/03/22 12:35 Myelocytes 2.0 % 05/03/22 12:35 Nucleated RBCs # 0.0 /100WBC 05/05/22 05:57 Platelet Estimate Increased (Normal) 05/03/22 12:35 Specimen Type Arterial 05/03/22 19:46 Sample Site Radial, right 05/03/22 19:46 ABG pH 7.47 (7.35-7.45) H 05/03/22 19:46 ABG pCO2 34.4 mmHg (35-45) L 05/03/22 19:46 ABG pO2 73.3 mmHg (80.0-100.0) L 05/03/22 19:46 ABG HCO3 24.8 mmol/L (22-26) 05/03/22 19:46 ABG O2 Saturation 97.5 05/03/22 19:46 ABG Base Excess 1.4 mmol/L (-2.0-2.0) 05/03/22 19:46 Bereket Test Pos 05/03/22 19:46 A-a O2 Gradient 4.2 mmHg (5-10) L 05/03/22 19:46 Hematocrit 41.8 % (42-52) L 05/03/22 19:46 Hgb O2 Saturation 95.9 % (95-100) 05/03/22 19:46 Carboxyhemoglobin 0.8 %THgb (0.4-20.1) 05/03/22 19:46 Methemoglobin 0.8 % (0.4-1.5) 05/03/22 19:46 Total Hemoglobin 13.7 g/dL (14-18) L 05/03/22 19:46 Sodium 137.0 mmol/L (131-143) 05/03/22 19:46 Potassium 3.2 mmol/L (3.5-5.0) L 05/03/22 19:46 Glucose 244.0 mg/dL (70-115) H 05/03/22 19:46 Ionized Calcium 1.3 mmol/L (1.1-1.4) 05/03/22 19:46 O2 Delivery Device None 05/03/22 19:46 O2 Liters/Min 2.0 % 05/03/22 12:32 Flight Engineer Helicopter ID Hensa 05/03/22 19:46 Sodium 135 mmol/L (136-145) L 05/05/22 05:57 Potassium 3.8 mmol/L (3.5-5.1) 05/05/22 05:57 Chloride 99 mmol/L (98-107) 05/05/22 05:57 Carbon Dioxide 30 mmol/L (22-29) H 05/05/22 05:57 Anion Gap 9.8 (5-19) 05/05/22 05:57 BUN 15 mg/dL (6-20) 05/05/22 05:57 Creatinine 0.6 mg/dL (0.7-1.2) L 05/05/22 05:57 GFR Calculation 164.2 mL/min (90-130) H 05/05/22 05:57 Glucose 133 mg/dL (65-115) H 05/05/22 05:57 POC Glucose 145 mg/dL (70-110) H 05/05/22 06:05 Calculated Osmolality 283 mOsm/kg (285-295) L 05/05/22 05:57 Lactic Acid 1.1 mmol/L (0.5-2.2) 05/04/22 03:38 Lactate 6.6 mmol/L (0.5-2.2) H* 05/03/22 14:20 Calcium 8.6 mg/dL (8.5-10.5) 05/05/22 05:57 Phosphorus 3.2 mg/dL (2.5-4.5) 05/05/22 05:57 Magnesium 1.6 mg/dL (1.7-2.3) L 05/04/22 03:38 Magnesium Cancelled 05/04/22 03:38 Total Bilirubin 0.4 mg/dL (0.15-1.2) 05/05/22 05:57 Direct Bilirubin 0.20 mg/dL (0.00-0.30) 05/03/22 14:20 AST 37 U/L (0-40) 05/05/22 05:57 ALT 61 U/L (0-41) H 05/05/22 05:57 Alkaline Phosphatase 106 IU/L (40-130) 05/05/22 05:57 Lactate Dehydrogenase Cancelled 05/03/22 14:09 Total Protein 4.8 g/dL (6.6-8.7) L 05/05/22 05:57 Albumin 3.0 g/dL (3.5-5.2) L 05/05/22 05:57 Globulin 1.8 g/dL (1.3-4.6) 05/05/22 05:57 Lipase 14 U/L (13-60) 05/03/22 14:09 Procalcitonin 9.82 ng/mL (0-0.5) H 05/04/22 03:38 Procalcitonin Cancelled 05/04/22 03:38 Urine Color Colorless (Yellow) 05/03/22 14:12 Urine Appearance Clear (CLEAR) 05/03/22 14:12 Urine pH 5 (5-7) 05/03/22 14:12 Ur Specific [place] 1.010 (1.005-1.030) 05/03/22 14:12 Urine Protein Trace (Negative) 05/03/22 14:12 Urine Glucose (UA) 4+ (Normal) H 05/03/22 14:12 Urine Ketones 2+ (Negative) H 05/03/22 14:12 Urine Blood Neg (Negative) 05/03/22 14:12 Urine Nitrate Negative (Negative) 05/03/22 14:12 Urine Bilirubin Neg (Negative) 05/03/22 14:12 Urine Urobilinogen Norm mg/dL (Negative) 05/03/22 14:12 Ur Leukocyte Esterase Negative (Negative) 05/03/22 14:12 Urine RBC 0-4 /hpf (0-2) H 05/03/22 14:12 Urine WBC 0-4 /hpf (0-5) H 05/03/22 14:12 Ur Squamous Epith Cells 0-4 /hpf (0-5) H 05/03/22 14:12 Amorphous Sediment Not Reportable 05/03/22 14:12 Urine Bacteria None /hpf (NONE) 05/03/22 14:12 Hyaline Casts 5-10 /lpf H 05/03/22 14:12 Acetaminophen < 5.0 ug/mL (10-30) L 05/03/22 14:20 Serum Ketones Positive (Negative) H 05/03/22 12:35 Hepatitis A IgM Ab Non-reactive (Nonreactive) 05/03/22 14:20 Hep Bs Antigen Non-reactive (Nonreactive) 05/03/22 14:20 Hep B Core IgM Ab Non-reactive (Nonreactive) 05/03/22 14:20 Hepatitis C Antibody Non-reactive (Nonreactive) 05/03/22 14:20 Vitals Last Vital Signs Temp 98.2 F 05/05/22 07:54 Pulse 78 05/05/22 07:54 Resp 16 05/05/22 07:54 BP 136/94 05/05/22 07:54 Pulse Ox 97 05/05/22 07:54 Discharge Plan Discharge Patient Disposition: Home Condition: Stable Prescriptions: Continued (DME) blood-glucose meter [OneTouch Ultra2 Meter] Kit See Rx Instructions .Route Qty: 1 0RF Rx Instructions: To use TID to check blood sugar levels before taking insulin (DME) OneTouch Ultra Test Strip See Rx Instructions .Route Qty: 300 3RF Rx Instructions: To use TID in onetouch meter to check blood sugar, 90 day supply Novolin R Flexpen 100 unit/mL (3 mL) insulin pen See Rx Instructions .ROUTE .COMPLEX Qty: 15 0RF Rx Instructions: sliding scale subcutaneously with meals as directed Discharge Orders: Discharge Order (Routine); Ordered 05/05/22 Ordered By: Aden Godinez Referrals: Peace Brothers MD [Primary Care Provider] - 1 week (Please call Dr. Brothers's office Saturday morning to schedule a hospital follow up appointment within 1 week. ) Discharge Diet: Diabetic Discharge Activity: Resume usual activity Patient Instructions: Acute Kidney Injury (GEN), Diabetic Ketoacidosis (GEN), Metabolic Acidosis (GEN), Lactic Acidosis (GEN), Opioid Safety Discharge Attestations Time Spent in Discharge Care*: less than 30 min Quality Metrics Clinical Quality Measures [ No reported AMI, CVA or VTE this stay] Coding Level of Care Code Acute Chg FW DC note Diagnoses DKA (diabetic ketoacidosis) E11.10 Leukocytosis D72.829 Transaminitis R74.01 Metabolic acidosis E87.2 Lactic acidosis E87.2 Pseudohyponatremia R79.89 MICHAEL (acute kidney injury) N17.9
[2022-05-05 10:25] VITALS: BP 136/94; PULSE 78; RESP 16; TEMP 36.8; O2SAT 97
== END 2022-05-05 10:50 | disposition home or self-care (01) | DRG 638 ==
LOC: ER 13:05 → ICU 16:40 → MEDSURG 05-04 18:52
PROVIDERS: Admitting Provider Internal Medicine; Emergency Provider Emergency Medicine; PCP Family Medicine; Visit Provider Internal Medicine
DX: E10.10 Type 1 diabetes mellitus with ketoacidosis without coma (principal); N17.9 Acute kidney failure, unspecified; E86.0 Dehydration; R74.01 Elevation of levels of liver transaminase levels; R11.2 Nausea with vomiting, unspecified; F17.210 Nicotine dependence, cigarettes, uncomplicated; R06.02 Shortness of breath; Z79.4 Long term (current) use of insulin
CPT/HCPCS: 36415; 36416; 36600; 71045; 74177; 80048; 80051; 80053; 80074; 80307; 81001; 82009; 82248; 82330; 82805; 82962; 83605; 83690; 83735; 84100; 84145; 85007; 85025; 87040; 93005; 94760; 96361; 96365; 96367; 96372; 99285; J0610; J1650; J1815; J2543; J3370; J3475; J3480; J7030; J7050; Q9967

== ENCOUNTER 2022-05-10 12:14 | Inpatient (IN) | payer MEDICAID, SELFPAY ==
[2022-05-10] VITALS (37 sets, daily range): BP systolic 97–142; BP diastolic 69–85; PULSE 64–105; RESP 8–25; TEMP 36.3–36.6; O2SAT 85–100; BMI 19.3; BMI 18.8
[2022-05-10 12:51] LABS: ABG PCO2 9.7 mmHg (35-45); ABG PH Result 6.82 (7.35-7.45); Arterial Blood Gas Hematocrit 39.9 % (42-52); Base Excess ABG -31.5 mmol/L (-2.0-2.0); Blood Gas Allen Test Pos; Blood Gas Operator Identificat CAK; Blood Gas Sample Site Radial, left; Blood Gas Sample Type Arterial; Carboxyhemoglobin 0.5 %THgb (0.4-20.1); HCO3 ABG 1.6 mmol/L (22-26); Ionized Calcium Level - ABG 1.3 mmol/L (1.1-1.4); Methemoglobin 1.2 % (0.4-1.5); Oxygen Device ROOM AIR; Oxygen Saturation ABG 98.7; Potassium Level - ABG 6.2 mmol/L (3.5-5.0)
[2022-05-10] MEDS: sodium chloride 0.9% 1,000 ML 999 ML IV ×4 (13:05→14:31)
[2022-05-10] MEDS: sodium bicarbonate 8.4% 1 mEq/mL 50mL Syr 100 MEQ IVP (13:06)
[2022-05-10] MEDS: ondansetron 2 mg/ML SDV 2 mL 4 MG IVP (13:06)
[2022-05-10] MEDS: insulin regular-human 100 units/1 mL 10 UNIT IVP (13:08)
--- NOTE | 2022-05-10 13:16 | W.ED.AMS ---
HPI - Altered Mental Status General: Chief Complaint: Altered Mental Status Stated Complaint: HYPERGLYCEMIA Time Seen by Provider: 05/10/22 12:15 History of Present Illness: 27-year-old male with known history of diabetes mellitus was found to be lethargic altered mental status poorly responsive. And been hours since then he wanted seen him. His pump appeared to be malfunctioning his blood sugar read is 580 he is having donor services coordinator small breathing on arrival here and is poorly responsive. MD complaint: altered mental status PFSH ED PFSH: Medical History Diabetes type 1, uncontrolled History of DKA Long-term insulin use Psychiatric care Surgical History No history of previous surgery none known Family History Other Family history unknown Social History Smoking and tobacco status: current every day smoker cigarettes Packs smoked per day: 1 Alcohol intake: former Current occupational status: employed Course Vital Signs: Vital signs: Vital Signs Pulse Rate 93 05/10/22 12:16 Respiratory Rate 16 05/10/22 12:16 Blood Pressure 97/69 05/10/22 12:16 Pulse Oximetry 100 05/10/22 12:16 Oxygen Delivery Me thod 05/10/22 12:16 MDM - Altered Mental Status Lab Data : 05/10/22 12:54 05/10/22 12:54 Laboratory Results Specimen Type Arterial 05/10/22 12:39 Sample Site Radial, left 05/10/22 12:39 ABG pH 6.82 (7.35-7.45) L* 05/10/22 12:39 ABG pCO2 9.7 mmHg (35-45) L* 05/10/22 12:39 ABG pO2 161.0 mmHg (80.0-100.0) H 05/10/22 12:39 ABG HCO3 1.6 mmol/L (22-26) L 05/10/22 12:39 ABG O2 Saturation 98.7 05/10/22 12:39 ABG Base Excess -31.5 mmol/L (-2.0-2.0) L 05/10/22 12:39 Bereket Test Pos 05/10/22 12:39 A-a O2 Gradient Not Reportable 05/10/22 12:39 Hematocrit 39.9 % (42-52) L 05/10/22 12:39 Hgb O2 Saturation 97.0 % (95-100) 05/10/22 12:39 Carboxyhemoglobin 0.5 %THgb (0.4-20.1) 05/10/22 12:39 Methemoglobin 1.2 % (0.4-1.5) 05/10/22 12:39 Total Hemoglobin 13.0 g/dL (14-18) L 05/10/22 12:39 Sodium 131.0 mmol/L (131-143) 05/10/22 12:39 Potassium 6.2 mmol/L (3.5-5.0) H 05/10/22 12:39 Glucose 852.0 mg/dL (70-115) H 05/10/22 12:39 Ionized Calcium 1.3 mmol/L (1.1-1.4) 05/10/22 12:39 O2 Delivery Device Room air 05/10/22 12:39 FiO2 21.0 % 05/10/22 12:39 Health Care Facility Administrator ID Cak 05/10/22 12:39 Discharge Plan Discharge Condition: Stable Prescriptions: No Action (DME) blood-glucose meter [OneTouch Ultra2 Meter] Kit See Rx Instructions .Route Qty: 1 0RF Rx Instructions: To use TID to check blood sugar levels before taking insulin (DME) OneTouch Ultra Test Strip See Rx Instructions .Route Qty: 300 3RF Rx Instructions: To use TID in onetouch meter to check blood sugar, 90 day supply Novolin R Flexpen 100 unit/mL (3 mL) insulin pen See Rx Instructions .ROUTE .COMPLEX Qty: 15 0RF Rx Instructions: sliding scale subcutaneously with meals as directed Referrals: Peace Brothers MD [Primary Care Provider] - Coding Level of Care Code ED Java Analyst for Chg Surendra
--- NOTE | 2022-05-10 13:19 | XR_ITS ---
WS: [id number] Exam: XR chest 1V portable [id number] Date/Time of Exam: 05/10/2022 1:19 PM Reason For Exam: dyspnea/cough Comparison 05/03/2022 Findings: The lungs are clear and fully expanded. Costophrenic angles are sharp. No infiltrates. Bronchovascula r relief appears normal. Cardiac silhouette is unremarkable. Bony elements are intact. XR/XR chest 1V portable [id number] IMPRESSION: Unremarkable chest radiograph.
[2022-05-10] MEDS: insulin regular-human 250 UNIT in sodium chloride 0.9% 250 ML 16.2 UNIT IV (13:31)
[2022-05-10 13:33] LABS: Basophils # 0.3 10^3/uL (0.0-0.1); Basophils % 0.6 %; Eosinophils % 0.1 %; Hematocrit 45.5 % (42.0-52.0); Hemoglobin 13.1 g/dL (11.7-16.6); Lymphocytes # 4.5 10^3/uL (0.8-4.8); Mean Corpuscular HGB Conc 28.8 g/dL (30.0-36.0); Mean Corpuscular Hemoglobin 30.2 pg (28.0-34.0); Mean Corpuscular Volume 104.8 fl (80-94); Mean Platelet Volume 11.3 fL (7.4-10.4); Monocytes % 4.4 %; Neutrophils # 35.76 10^3/uL (1.8-7.7); Neutrophils % 79.3 %; Nucleated Red Blood Cells % 0 %; Platelet Count 466 10^3/cmm (130-400); Red Blood Count 4.34 10^6/uL (4.1-5.3); Red Cell Distribution Width 12.4 % (12.1-15.1)
[2022-05-10 13:51] LABS: Lactic Sepsis W/Reflex 8.2 mmol/L (0.5-2.2)
[2022-05-10 13:56] LABS: Slide Review Slide Review Perform; White Blood Count 45.1 10^3/uL (4.0-10.0)
--- NOTE | 2022-05-10 14:13 | P.HP_ITS ---
Providers/Chief Complaint Primary Care Provider: Peace Brothers MD Chief Complaint: HYPERGLYCEMIA History of Present Illness Jean Miller is a 27 year old male with past medical history of noncompliance, type 1 diabetes mellitus, multiple admissions with diabetic ketoacidosis, amphetamine abuse was brought in by the EMS today because he was found lethargic, poorly responsive. It seems his insulin pump has been malfunctioning. In the ER he was found to have a blood sugar of more than 600 with a pH of 6.8. Patient has overall received 3 L of IV fluids and is being started on insulin drip. He has received 10 units of insulin bolus and 200 mg of sodium bicarbonate. On examination patient is having perinatal coordinator small breathing, saturating well on room air, drowsy but able to answer simple questions. Blood work other than the ABG and a lactate of 8 is currently pending. Review of Systems General: Reports: ROS unobtainable due to mental status Medications/Allergies Home Medications Medication Instructions Recorded Confirmed Last Taken Type insulin regular human 100 unit/mL See Rx Instructions .Route 03/07/22 05/10/22 Unknown Rx (3 mL) subcutaneous pen (Novolin R .COMPLEX #15 mL Flexpen) blood sugar diagnostic (OneTouch #300 ea 04/02/22 05/10/22 Unknown Rx Ultra Test) blood-glucose meter (OneTouch #1 ea 04/02/22 05/10/22 Unknown Rx Ultra2 Meter) Allergies Allergy/AdvReac Type Severity Reaction Status Date / Time No Known Allergies Allergy Verified 05/03/22 13:21 PFSH Acute PFSH: Medical History (Updated 05/10/22 @ 14:18 by Jens River MD) MICHAEL (acute kidney injury) Diabetes type 1, uncontrolled History of DKA DKA (diabetic ketoacidosis) Lactic acidosis Leukocytosis Long-term insulin use Metabolic acidosis Pseudohyponatremia Psychiatric care Transaminitis Surgical History No history of previous surgery none known Family History Other Family history unknown Social History Smoking and tobacco status: current every day smoker cigarettes Packs smoked per day: 1 Alcohol intake: former Current occupational status: employed Vitals/I&O/Wt Last Vital Signs Pulse 93 05/10/22 12:16 Resp 16 05/10/22 12:16 BP 97/69 05/10/22 12:16 Pulse Ox 100 05/10/22 12:16 O2 Del Method 05/10/22 12:16 05/09/22 05/10/22 05/10/22 22:59 06:59 14:59 Intake Total 283.05 / 283.05 Balance 283.05 / 283.05 Weight last 48 hrs Weight 61.235 kg Physical Exam Narrative: General: Drowsy, arousable, GCS E3 M5 V2, maintaining saturation on room air, chronically ill-appearing, cachectic HEENT: PERRLA, pupils bilaterally equal and reactive Chest: Bilateral bronchial breath sounds, Kussmaul's breathing, occasional rhonchi over lung victor CVS: S1-S2 regular, no murmurs, no tachycardia, no gallops, no rubs Abdomen: Soft, nontender, no organomegaly, bowel sounds present, morbidly obese Neuro: No focal deficits, no facial deformity, AO x3, power 5/5 in all limbs Data : 05/11/22 02:06 05/11/22 09:56 Micro: Microbiology 05/10/22 12:54 Blood Culture - Preliminary Blood SPECIMEN COLLECTED 05/10/22 13:00 Blood Culture - Preliminary Blood SPECIMEN COLLECTED A&P Assessment and plan (1) DKA (diabetic ketoacidosis): Status: Acute (2) High anion gap metabolic acidosis: Status: Acute (3) Lactic acidosis: Status: Acute (4) Diabetes type 1, uncontrolled: Status: Acute (5) Long-term insulin use: Status: Acute (6) Kussmauls breathing: Status: Acute Plan Diabetic ketoacidosis: Start patient on insulin drip as per DKA protocol with target blood sugars between 200-2 50. 4 L IV bolus with normal saline. Followed by normal saline at 75 cc/h. We will switch to D5 NS once blood sugar less than 200. Monitor BMP every 4 hours. Once potassium less than 4 we will add 20 mg of potassium daily IV fluids. Recheck lactate after fluid bolus. ABG every 8 hour. Monitor saturations. Maintain over 90%. Leukocytosis: Could be reactive. Patient on previous admissions also has had white count as high as 42,000. Cannot rule out sepsis. Patient does have lactic acidosis. CT chest abdomen pelvis. Repeat CBC in evening. For now start patient on vancomycin and Zosyn. Follow-up blood cultures. Check urinalysis, urine culture, COVID-19 PCR, MRSA swab. If have diarrhea we will check stool studies to rule out C. difficile High anion gap metabolic acidosis Lactic acidosis Full code. NPO. Protonix for PUD prophylaxis Heparin 5000 every 12 hourly for DVT prophylaxis. Guarded prognosis. Attestations Medical Necessity Statement*: Admit to ICU for more than 2 midnights for management of diabetic ketoacidosis, high anion gap metabolic acidosis, leukocytosis Critical Care Time: The high probability of a clinically significant, sudden or life threatening deterioration of the patient's [endocrine, neurological, ID] system(s) required my full and direct attention, intervention and personal management. The critical care time is as shown. This time is in addition to time spent performing any reported procedures but includes the following: [x] Data and vital sign review and interpretation [x] Patient assessment, examination and intervention [x] Documentation [x] Medication orders and management Critical Care Time (min): 90 Coding Level of Care Code Acute Esthetician/Skin Therapist for [facility] Fwd Diagnoses DKA (diabetic ketoacidosis) E11.10 High anion gap metabolic acidosis E87.2 Lactic acidosis E87.2 Diabetes type 1, uncontrolled E10.65 Long-term insulin use Z79.4 Kussmauls breathing E87.2
[2022-05-10 14:23] LABS: Glucose Point of Care > 600 mg/dL (70-110)
[2022-05-10 14:23] LABS: Glucose Point of Care > 600 mg/dL (70-110)
[2022-05-10 14:30] LABS: Vitamin B12 1471 pg/mL (232-1245)
[2022-05-10] MEDS: sodium chloride 0.9% 1,000 ML 75 ML IV (14:31)
[2022-05-10 14:44] LABS: Alanine Aminotransferase 54 U/L (0-41); Albumin Level 3.4 g/dL (3.5-5.2); Alkaline Phosphatase 181 IU/L (40-130); Anion Gap 46.4 (5-19); Aspartate Amino Transferase 21 U/L (0-40); Blood Urea Nitrogen 35 mg/dL (6-20); Calcium 8.9 mg/dL (8.5-10.5); Chloride 88 mmol/L (98-107); Globulin 2.2 g/dL (1.3-4.6); Glomerular Filtration Rate 46.2 mL/min (90-130); Lipase 13 U/L (13-60); Magnesium 2.9 mg/dL (1.7-2.3); Potassium 6.4 mmol/L (3.5-5.1); Sodium 132 mmol/L (136-145); Total Bilirubin 0.2 mg/dL (0.15-1.2); Total Protein 5.6 g/dL (6.6-8.7)
[2022-05-10 14:52] LABS: Carbon Dioxide 4 mmol/L (22-29)
[2022-05-10 14:53] LABS: Osmolality Calculated 325 mOsm/kg (285-295)
[2022-05-10 15:01] LABS: Glucose 880 mg/dL (65-115)
[2022-05-10 15:03] LABS: Reflex Lactate Order REFLEX LACTIC ORDERD
[2022-05-10 15:11] LABS: Folate Level > 20.0 ng/mL (4.5-32.2)
[2022-05-10 15:32] LABS: Procalcitonin 1.69 ng/mL (0-0.5)
[2022-05-10 15:54] LABS: Arterial Blood Gas Hematocrit 39.6 % (42-52); Base Excess ABG -24.4 mmol/L (-2.0-2.0); Blood Gas Allen Test Pos; Blood Gas Operator Identificat CAK; Blood Gas Sample Site Radial, left; Blood Gas Sample Type Arterial; Carboxyhemoglobin 0.5 %THgb (0.4-20.1); HCO3 ABG 3.8 mmol/L (22-26); HGB O2 Sat 97.6 % (95-100); Ionized Calcium Level - ABG 1.2 mmol/L (1.1-1.4); Oxygen Device ROOM AIR; Oxygen Saturation ABG 99.1; Potassium Level - ABG 4.1 mmol/L (3.5-5.0); Total Hemoglobin 12.9 g/dL (14-18)
[2022-05-10 15:54] LABS: Lactic Acid level (Lactate) 5.2 mmol/L (0.5-2.2)
[2022-05-10 15:56] LABS: ABG PCO2 13.3 mmHg (35-45); ABG PH Result 7.06 (7.35-7.45)
[2022-05-10 15:59] LABS: Glucose Point of Care 512 mg/dL (70-110)
[2022-05-10] MEDS: vancomycin 1,000 MG in sodium chloride 0.9% 250 ML 250 MG IV (16:17)
[2022-05-10] MEDS: famotidine 20 mg/2 mL INJ IVP (16:17)
[2022-05-10] MEDS: heparin 5,000 unit/mL INJ 1 mL 5000 UNIT SUBCUT (16:17)
[2022-05-10 17:07] LABS: Glucose Point of Care 343 mg/dL (70-110)
[2022-05-10 17:09] LABS: Add Urine Microscopic? NO; Bilirubin Urine Neg (Negative); Blood Urine Neg (Negative); Glucose Urine UA Norm (Normal); Ketones Urine 1+ (Negative); Leukocyte Esterase Urine Negative (Negative); Nitrate Urine Negative (Negative); Protein Urine Neg (Negative); Specific Gravity, Urine 1.015 (1.005-1.030); Urine Appearance Clear (CLEAR); Urine Color Yellow (Yellow); Urobilinogen Urine Norm (Negative); pH Urine 5 (5-7)
[2022-05-10 17:10] LABS: Charge for UA Resulting for Rev
[2022-05-10 17:15] LABS: Amphetamines Screen Urine Negative (Negative); Barbiturates Screen Urine Negative (Negative); Benzodiazepines Screen Urine Negative (Negative); Cocaine Screen Urine Negative (Negative); Opiate Screen Urine Negative (Negative); PCP Screen Urine Negative (Negative); THC Screen Urine Negative (Negative)
[2022-05-10] MEDS: piperacillin-tazobactam 3.375 GM in sodium chloride 0.9% (plus) 50 ML IV (17:16)
[2022-05-10 17:59] LABS: Glucose Point of Care 395 mg/dL (70-110)
[2022-05-10 19:12] LABS: Glucose Point of Care 272 mg/dL (70-110)
[2022-05-10 19:55] LABS: Adenovirus Not Detected (NOT DETECT); Chlamydia Pneumoniae Not Detected (NOT DETECT); Coronavirus 229E,HKU1,NL63,OC4 Not Detected (NOT DETECT); Human Metapneumovirus Not Detected (NOT DETECT); Human Rhinovirus/Enterovirus Not Detected (NOT DETECT); Influenza A Not Detected (NOT DETECT); Influenza A H1 Not Detected (NOT DETECT); Influenza A H1-2009 Not Detected (NOT DETECT); Influenza A H3 Not Detected (NOT DETECT); Influenza B Not Detected (NOT DETECT); Mycoplasma Pneumoniae Not Detected (NOT DETECT); Parainfluenza Virus Type 1 Not Detected (NOT DETECT); Parainfluenza Virus Type 2 Not Detected (NOT DETECT); Parainfluenza Virus Type 3 Not Detected (NOT DETECT); Parainfluenza Virus Type 4 Not Detected (NOT DETECT); Respiratory Syncytial Virus A Not Detected (NOT DETECT); Respiratory Syncytial Virus B Not Detected (NOT DETECT); SARS-COV-2 Not Detected (NOT DETECT)
[2022-05-10 20:02] LABS: Glucose Point of Care 210 mg/dL (70-110)
[2022-05-10] MEDS: dextrose 5%-sod chloride 0.9% 1,000 ML 100 ML IV (20:05)
[2022-05-10 20:35] LABS: Hemoglobin 11.9 g/dL (11.7-16.6); Mean Corpuscular HGB Conc 32.2 g/dL (30.0-36.0); Mean Corpuscular Hemoglobin 29.9 pg (28.0-34.0); Mean Platelet Volume 10.6 fL (7.4-10.4); Platelet Count 294 10^3/cmm (130-400); Red Blood Count 3.98 10^6/uL (4.1-5.3); Red Cell Distribution Width 12.3 % (12.1-15.1); White Blood Count 25.6 10^3/uL (4.0-10.0)
[2022-05-10 21:07] LABS: Glucose Point of Care 200 mg/dL (70-110)
[2022-05-10 22:10] LABS: Glucose Point of Care 192 mg/dL (70-110)
[2022-05-10 22:35] LABS: Alanine Aminotransferase 46 U/L (0-41); Albumin Level 3.3 g/dL (3.5-5.2); Alkaline Phosphatase 117 IU/L (40-130); Anion Gap 21.5 (5-19); Aspartate Amino Transferase 16 U/L (0-40); Blood Urea Nitrogen 23 mg/dL (6-20); Calcium 8.1 mg/dL (8.5-10.5); Carbon Dioxide 15 mmol/L (22-29); Chloride 113 mmol/L (98-107); Globulin 1.9 g/dL (1.3-4.6); Glomerular Filtration Rate 81.6 mL/min (90-130); Glucose 183 mg/dL (65-115); Magnesium 1.8 mg/dL (1.7-2.3); Osmolality Calculated 310 mOsm/kg (285-295); Potassium 3.5 mmol/L (3.5-5.1); Sodium 146 mmol/L (136-145); Total Bilirubin 0.2 mg/dL (0.15-1.2); Total Protein 5.2 g/dL (6.6-8.7)
[2022-05-10] MEDS: dextrose 5%-sod chloride 0.45% 1,000 ML 125 ML IV (23:07)
[2022-05-10 23:23] LABS: ABG PCO2 31.3 mmHg (35-45); ABG PH Result 7.33 (7.35-7.45); Alveolar-Arterial Oxygen Gradi 0.3 mmHg (5-10); Arterial Blood Gas Hematocrit 39.1 % (42-52); Base Excess ABG -8.2 mmol/L (-2.0-2.0); Blood Gas Allen Test Pos; Blood Gas Operator Identificat JB; Blood Gas Sample Site Brachial, right; Blood Gas Sample Type Arterial; Carboxyhemoglobin 0.6 %THgb (0.4-20.1); HCO3 ABG 16.5 mmol/L (22-26); HGB O2 Sat 97.6 % (95-100); Ionized Calcium Level - ABG 1.2 mmol/L (1.1-1.4); Methemoglobin 0.9 % (0.4-1.5); Oxygen Device NC; Oxygen Saturation ABG 99.2; Potassium Level - ABG 3.1 mmol/L (3.5-5.0); Total Hemoglobin 12.8 g/dL (14-18)
[2022-05-10 23:25] LABS: Glucose Point of Care 144 mg/dL (70-110)
[2022-05-11] VITALS (82 sets, daily range): BP systolic 107–149; BP diastolic 75–105; PULSE 69–107; RESP 7–29; TEMP 36.6–36.9; O2SAT 93–100
[2022-05-11 00:11] LABS: Absolute Segmented Neutrophil 18.9 10/cmm (1.6-7.1); Band Neutrophils Absolute 4.1 10^3/cmm (0.0-1.2); Eosinophils 0 %; Lymphocytes 4 %; Lymphocytes Absolute 1.5 10^3/cmm (1.2-3.4); Monocytes Absolute 0.5 10^3/cmm (0.1-0.6); Platelet Estimate Normal (Normal); Segmented Neutrophils 74 %; Total Cells Counted 100 (0-100)
[2022-05-11 00:11] LABS: Glucose Point of Care 140 mg/dL (70-110)
[2022-05-11] MEDS: piperacillin-tazobactam 3.375 GM in sodium chloride 0.9% (plus) 50 ML IV ×3 (00:53→16:09)
[2022-05-11 01:06] LABS: Glucose Point of Care 155 mg/dL (70-110)
[2022-05-11] MEDS: lidocaine 1% 5 ML in potassium chloride premix 100 ML 25 ML IV (01:36)
[2022-05-11 02:20] LABS: Basophils # 0.1 10^3/uL (0.0-0.1); Basophils % 0.2 %; Eosinophils # 8.3 10^3/uL (0.0-0.8); Hematocrit 37.6 % (42.0-52.0); Hemoglobin 12.4 g/dL (11.7-16.6); Lymphocytes # 1.7 10^3/uL (0.8-4.8); Mean Corpuscular Hemoglobin 30.3 pg (28.0-34.0); Mean Corpuscular Volume 91.9 fl (80-94); Mean Platelet Volume 10.4 fL (7.4-10.4); Monocytes # 1.7 10^3/uL (0.2-0.9); Monocytes % 7.9 %; Neutrophils # 9.76 10^3/uL (1.8-7.7); Neutrophils % 44.7 %; Nucleated Red Blood Cells % 0 %; Platelet Count 304 10^3/cmm (130-400); Red Blood Count 4.09 10^6/uL (4.1-5.3); Red Cell Distribution Width 12.5 % (12.1-15.1); White Blood Count 21.8 10^3/uL (4.0-10.0)
[2022-05-11 02:21] LABS: Glucose Point of Care 109 mg/dL (70-110)
[2022-05-11 02:49] LABS: Alanine Aminotransferase 41 U/L (0-41); Albumin Level 3.1 g/dL (3.5-5.2); Alkaline Phosphatase 113 IU/L (40-130); Anion Gap 11.5 (5-19); Aspartate Amino Transferase 16 U/L (0-40); Blood Urea Nitrogen 20 mg/dL (6-20); Calcium 7.9 mg/dL (8.5-10.5); Carbon Dioxide 22 mmol/L (22-29); Chloride 116 mmol/L (98-107); Globulin 1.8 g/dL (1.3-4.6); Glomerular Filtration Rate 81.6 mL/min (90-130); Glucose 134 mg/dL (65-115); Osmolality Calculated 307 mOsm/kg (285-295); Potassium 3.5 mmol/L (3.5-5.1); Sodium 146 mmol/L (136-145); Total Bilirubin 0.2 mg/dL (0.15-1.2); Total Protein 4.9 g/dL (6.6-8.7)
[2022-05-11 03:03] LABS: Glucose Point of Care 117 mg/dL (70-110)
[2022-05-11] MEDS: famotidine 20 mg/2 mL INJ IVP ×2 (03:54→15:10)
[2022-05-11] MEDS: heparin 5,000 unit/mL INJ 1 mL 5000 UNIT SUBCUT ×2 (03:54→15:10)
[2022-05-11 04:18] LABS: Glucose Point of Care 81 mg/dL (70-110)
[2022-05-11 04:31] LABS: Slide Review Slide Review Perform
[2022-05-11 05:06] LABS: Glucose Point of Care 105 mg/dL (70-110)
[2022-05-11] MEDS: insulin glargine 100 units/1 mL 20 UNIT SUBCUT ×2 (05:34→20:59)
[2022-05-11 06:14] LABS: Blood Urea Nitrogen 20 mg/dL (6-20); Calcium 7.7 mg/dL (8.5-10.5); Carbon Dioxide 20 mmol/L (22-29); Chloride 115 mmol/L (98-107); Glucose 190 mg/dL (65-115); Osmolality Calculated 306 mOsm/kg (285-295); Sodium 144 mmol/L (136-145)
[2022-05-11] MEDS: sodium chloride 0.45% 1,000 ML 75 ML IV ×2 (06:15→20:02)
[2022-05-11 06:29] LABS: ABG PCO2 35.8 mmHg (35-45); ABG PH Result 7.32 (7.35-7.45); Alveolar-Arterial Oxygen Gradi 0.3 mmHg (5-10); Arterial Blood Gas Hematocrit 39.1 % (42-52); Base Excess ABG -6.7 mmol/L (-2.0-2.0); Blood Gas Allen Test Pos; Blood Gas Operator Identificat JB; Blood Gas Sample Site Brachial, right; Blood Gas Sample Type Arterial; Carboxyhemoglobin 0.7 %THgb (0.4-20.1); HCO3 ABG 18.6 mmol/L (22-26); Ionized Calcium Level - ABG 1.2 mmol/L (1.1-1.4); Methemoglobin 1.1 % (0.4-1.5); Oxygen Device ROOM AIR; Oxygen Saturation ABG 98.8; Potassium Level - ABG 4.2 mmol/L (3.5-5.0); Total Hemoglobin 12.8 g/dL (14-18)
[2022-05-11 07:48] LABS: Glucose Point of Care 145 mg/dL (70-110)
[2022-05-11] MEDS: insulin lispro 100 unit/1 mL SUBCUT ×4 (08:14→20:58)
[2022-05-11 10:40] LABS: Lactic Sepsis W/Reflex 0.8 mmol/L (0.5-2.2)
[2022-05-11 10:47] LABS: Anion Gap 17.3 (5-19); Blood Urea Nitrogen 22 mg/dL (6-20); Calcium 8.1 mg/dL (8.5-10.5); Carbon Dioxide 18 mmol/L (22-29); Chloride 112 mmol/L (98-107); Creatinine Clr Calc Pharmacy 108.9069; Glucose 292 mg/dL (65-115); Osmolality Calculated 310 mOsm/kg (285-295); Potassium 4.3 mmol/L (3.5-5.1); Sodium 143 mmol/L (136-145)
--- NOTE | 2022-05-11 12:11 | PM.PN ---
Subjective Subjective: Overnight patient's anion gap had closed and insulin drip was stopped at around 5:30 AM in the morning today. He was transitioned from insulin drip to sliding scale. Today morning on examination patient is sleeping but wakes up to verbal and physical stimulus. Has remained hemodynamically stable and afebrile. Blood work appreciated. Vitals/I&O/Wt Last Vital Signs Temp 98.5 F 05/11/22 08:00 Pulse 95 05/11/22 11:00 Resp 12 05/11/22 11:00 BP 130/88 05/11/22 11:00 Pulse Ox 100 05/11/22 11:00 O2 Del Method 05/11/22 07:46 05/10/22 05/11/22 05/11/22 22:59 06:59 14:59 Intake Total 2836.032 / 3485.382 1890.571 / 5375.953 634.167 / 634.167 Output Total 2850 / 2850 1400 / 4250 850 / 850 Balance -13.968 / 635.382 490.571 / 1125.953 -215.833 / -215.833 Weight last 48 hrs Weight 60.963 kg Weight 59.449 kg Weight 61.235 kg Physical Exam Narrative: General: Drowsy, arousable, GCS E3 M5 V2, maintaining saturation on room air, chronically ill-appearing, cachectic HEENT: PERRLA, pupils bilaterally equal and reactive Chest: Bilateral bronchial breath sounds, Kussmaul's breathing, occasional rhonchi over lung victor CVS: S1-S2 regular, no murmurs, no tachycardia, no gallops, no rubs Abdomen: Soft, nontender, no organomegaly, bowel sounds present, morbidly obese Neuro: No focal deficits, no facial deformity, AO x3, power 5/5 in all limbs Data : 05/11/22 02:06 05/11/22 09:56 Micro: Microbiology 05/10/22 12:54 Blood Culture - Preliminary Blood SPECIMEN COLLECTED 05/10/22 13:00 Blood Culture - Preliminary Blood SPECIMEN COLLECTED A&P Assessment and plan (1) Diabetes type 1, uncontrolled: Status: Acute (2) DKA (diabetic ketoacidosis): Resolved Status: Acute (3) High anion gap metabolic acidosis: Resolved Status: Acute (4) Lactic acidosis: Status: Acute (5) Long-term insulin use: Status: Acute (6) Kussmauls breathing: Resolved Status: Acute Plan Diabetic ketoacidosis: Resolved. Type 1 diabetes mellitus: Most recent A1c 14.4 in February 2022. Still slightly acidotic on morning ABG. Continue with half NS at 75 cc/h. Monitor BMP every 4 hours for 2 times to make sure anion gap continues to remain closed. Insulin sliding scale at moderate dose protocol. Lantus 20 units nightly. Carb consistent diet. Leukocytosis: Could be reactive. Trending down. Remains afebrile. Similar presentation 2 weeks ago. Lactic acidosis resolved. Hold off on CT scan. Continue to monitor blood cultures. For now continue Zosyn. Stop vancomycin as MRSA was negative in the past. If blood cultures remain negative for 24 hours. Antibiotics completely. Full code. Carb consistent diet Protonix for PUD prophylaxis Heparin 5000 every 12 hourly for DVT prophylaxis. Attestations Medical Necessity Statement*: Requires further hospitalization for management of uncontrolled type 1 diabetes mellitus, resolving DKA, metabolic acidosis, leukocytosis while underlying infection is ruled out Time Spent in Patient Care: Greater than 35 minutes Coding Level of Care Code Acute Pupil Personnel Services Director for [facility] Fwd Diagnoses Diabetes type 1, uncontrolled E10.65 DKA (diabetic ketoacidosis) E11.10 High anion gap metabolic acidosis E87.2 Lactic acidosis E87.2 Long-term insulin use Z79.4 Kussmauls breathing E87.2
--- NOTE | 2022-05-11 14:06 | ECG_ITS ---
[facility] Test Date: 2022-05-11 Pat Name: Jean Miller Department: Room: [id number] Gender: Male Wildlife Conservationist: : 1995 Requested By: Jens River Order Number: [id number] Alberto MD: Aracelis Jauregui M.D. Measurements Intervals [place] Rate: 94 P: 77 SC: 141 QRS: 61 QRSD: 84 T: 74 QT: 366 QTc: 458 Interpretive Statements SINUS RHYTHM NONSPECIFIC T-WAVE ABNORMALITY Compared to ECG 05/03/2022 12:36:21 T-wave abnormality now present Sinus tachycardia no longer present Myocardial infarct finding no longer present Electronically Signed On 05-11-2022 15:08:36 CDT by Aracelis Jauregui M.D. [email or web address]
[2022-05-11 17:11] LABS: Glucose Point of Care 258 mg/dL (70-110)
--- NOTE | 2022-05-11 20:38 | PC.NURSE ---
Bedside report received from Edna Hugo RN
[2022-05-11 20:48] LABS: Glucose Point of Care 257 mg/dL (70-110)
[2022-05-12] VITALS (33 sets, daily range): BP systolic 125–139; BP diastolic 79–100; PULSE 55–93; RESP 7–19; TEMP 36.3–36.5; O2SAT 90–100
[2022-05-12] MEDS: piperacillin-tazobactam 3.375 GM in sodium chloride 0.9% (plus) 50 ML IV ×2 (00:28→07:25)
--- NOTE | 2022-05-12 01:09 | PC.NURSE ---
Pt resting quietly in bed with eyes closed. Pt is arousable to light touch/name. Skin is pale and dry. Respirations are even and unlabored.
[2022-05-12] MEDS: heparin 5,000 unit/mL INJ 1 mL 5000 UNIT SUBCUT (03:29)
[2022-05-12] MEDS: famotidine 20 mg/2 mL INJ IVP (03:29)
[2022-05-12 06:20] LABS: Basophils % 0.3 %; Eosinophils % 0.2 %; Hematocrit 36.6 % (42.0-52.0); Lymphocytes # 2.4 10^3/uL (0.8-4.8); Lymphocytes % 20.6 %; Mean Corpuscular HGB Conc 32.8 g/dL (30.0-36.0); Mean Corpuscular Hemoglobin 29.9 pg (28.0-34.0); Mean Platelet Volume 9.9 fL (7.4-10.4); Monocytes # 0.7 10^3/uL (0.2-0.9); Neutrophils # 8.45 10^3/uL (1.8-7.7); Neutrophils % 72.6 %; Nucleated Red Blood Cells % 0 %; Platelet Count 258 10^3/cmm (130-400); Red Blood Count 4.02 10^6/uL (4.1-5.3); Red Cell Distribution Width 13.2 % (12.1-15.1); White Blood Count 11.6 10^3/uL (4.0-10.0)
[2022-05-12 06:42] LABS: Alanine Aminotransferase 31 U/L (0-41); Albumin Level 3.3 g/dL (3.5-5.2); Alkaline Phosphatase 100 IU/L (40-130); Aspartate Amino Transferase 16 U/L (0-40); Blood Urea Nitrogen 15 mg/dL (6-20); Calcium 8.5 mg/dL (8.5-10.5); Carbon Dioxide 28 mmol/L (22-29); Chloride 108 mmol/L (98-107); Creatinine Clr Calc Pharmacy 156.4922; Globulin 1.6 g/dL (1.3-4.6); Glomerular Filtration Rate 137.4 mL/min (90-130); Glucose 80 mg/dL (65-115); Osmolality Calculated 292 mOsm/kg (285-295); Sodium 141 mmol/L (136-145); Total Bilirubin 0.2 mg/dL (0.15-1.2); Total Protein 4.9 g/dL (6.6-8.7)
[2022-05-12 07:21] LABS: Glucose Point of Care 53 mg/dL (70-110)
[2022-05-12] MEDS: potassium chloride ER 20 mEq Tablet 80 MEQ PO (07:25)
[2022-05-12 07:35] LABS: Glucose Point of Care 60 mg/dL (70-110)
[2022-05-12 08:13] LABS: Glucose Point of Care 194 mg/dL (70-110)
[2022-05-12] MEDS: sodium chloride 0.45% 1,000 ML 75 ML IV (09:34)
[2022-05-12 11:13] LABS: Glucose Point of Care 266 mg/dL (70-110)
[2022-05-12] MEDS: insulin lispro 100 unit/1 mL SUBCUT (11:16)
--- NOTE | 2022-05-12 12:33 | P.DS_ITS ---
Discharge Providers Date of Admission: 05/10/22 13:31 Date of Discharge: May 12, 2022 Attending Provider at Admission: Jens River MD Attending Provider at Discharge: Jens River MD Primary Care Provider: Peace Brothers MD Diagnoses at Discharge Discharge Diagnosis (1) Diabetes type 1, uncontrolled: Status: Acute Permanent problem details: History of DKA (2) DKA (diabetic ketoacidosis): Status: Acute (3) High anion gap metabolic acidosis: Status: Acute (4) Lactic acidosis: Status: Acute (5) Long-term insulin use: Status: Acute (6) Kussmauls breathing: Status: Acute Reason for Visit Reason for Visit: HYPERGLYCEMIA Hospital Course Hospital Course Jean Miller is a 27 year old male with past medical history of noncompliance, type 1 diabetes mellitus, multiple admissions with diabetic ketoacidosis, amphetamine abuse was brought in by the EMS today because he was found lethargic, poorly responsive.? It seems his insulin pump has been malfunctioning.? In the ER he was found to have a blood sugar of more than 600 with a pH of 6.8. Patient has overall received 3 L of IV fluids and is being started on insulin drip.? He has received 10 units of insulin bolus and 200 mg of sodium bicarbonate. On examination patient is having Kausmaul's breathing, saturating well on room air, drowsy but able to answer simple questions. On admission patient was severely acidotic with elevated anion gap. He was admitted to ICU for treatment of diabetic ketoacidosis. He responded well to the treatment and has been on subcutaneous insulin with anion gap closed for more than 24 hours. On admission patient was found to be having severe leukocytosis for which blood cultures were taken and he was started on broad- spectrum antibiotics. His blood cultures have remained negative. It is believed his leukocytosis is most likely reactionary to severe acidosis on admission. Once patient was more stable he stated that his insulin pump is not functioning since his last discharge. He is been discharged hemodynamic stable condition on Humalog 10 units Premeal 3 times a day along with Lantus 10 units at nighttime. He is advised to make an appointment with his hydroelectric systems technician on Saturday for malfunctioning insulin pump. Discharge plan were discussed in detail with the patient and all the questions were answered Physical Exam Narrative: General: Awake, alert, no acute distress, chronically ill-appearing HEENT: PERRLA, pupils bilaterally equal and reactive Chest: Bilateral bronchial breath sounds, occasional rhonchi over lung victor CVS: S1-S2 regular, no murmurs, no tachycardia, no gallops, no rubs Abdomen: Soft, nontender, no organomegaly, bowel sounds present, morbidly obese Neuro: No focal deficits, no facial deformity, AO x3, power 5/5 in all limbs Discharge Data Studies Completed and Pending Completed Studies During Hospitalization Category Date Time Status XR chest 1V portable [id number] Stat Exams 05/10/22 13:19 Completed Pending at discharge Category Date Time Status Blood Culture Stat Lab 05/10/22 12:54 Results Radiology Impressions Chest X-Ray 05/10/22 13:19 IMPRESSION: Unremarkable chest radiograph. Laboratory Results WBC 11.6 10^3/uL (4.0-10.0) H 05/12/22 06:12 RBC 4.02 10^6/uL (4.1-5.3) L 05/12/22 06:12 Hgb 12.0 g/dL (11.7-16.6) 05/12/22 06:12 Hct 36.6 % (42.0-52.0) L 05/12/22 06:12 MCV 91.0 fl (80-94) 05/12/22 06:12 MCH 29.9 pg (28.0-34.0) 05/12/22 06:12 MCHC 32.8 g/dL (30.0-36.0) 05/12/22 06:12 RDW 13.2 % (12.1-15.1) 05/12/22 06:12 Plt Count 258 10^3/cmm (130-400) 05/12/22 06:12 MPV 9.9 fL (7.4-10.4) 05/12/22 06:12 Neut % (Auto) 72.6 % 05/12/22 06:12 Lymph % (Auto) 20.6 % 05/12/22 06:12 Rush % (Auto) 6.0 % 05/12/22 06:12 Eos % (Auto) 0.2 % 05/12/22 06:12 Baso % (Auto) 0.3 % 05/12/22 06:12 Neut # (Auto) 8.45 10^3/uL (1.8-7.7) H 05/12/22 06:12 Lymph # (Auto) 2.4 10^3/uL (0.8-4.8) 05/12/22 06:12 Rush # (Auto) 0.7 10^3/uL (0.2-0.9) 05/12/22 06:12 Eos # (Auto) 0.0 10^3/uL (0.0-0.8) 05/12/22 06:12 Baso # (Auto) 0.0 10^3/uL (0.0-0.1) 05/12/22 06:12 Nucleated RBC % (auto) 0 % 05/12/22 06:12 Total Counted 100 (0-100) 05/10/22 19:58 Atypical Lymphs % 2.0 % (0-5) 05/10/22 19:58 Absolute Neutrophils 23.0 10^3/cmm (1.4-6.5) H 05/10/22 19:58 Segmented Neutrophils 74 % 05/10/22 19:58 Abs Segm Neuts (Man) 18.9 10/cmm (1.6-7.1) H 05/10/22 19:58 Band Neutrophils 16.0 % 05/10/22 19:58 Abs Band Neuts (Man) 4.1 10^3/cmm (0.0-1.2) H 05/10/22 19:58 Absolute Lymphocytes 1.5 10^3/cmm (1.2-3.4) 05/10/22 19:58 Lymphocytes (Manual) 4 % 05/10/22 19:58 Monocytes (Manual) 2.0 % 05/10/22 19:58 Absolute Monocytes 0.5 10^3/cmm (0.1-0.6) 05/10/22 19:58 Eosinophils (Manual) 0 % 05/10/22 19:58 Absolute Eosinophils 0.0 10^3/cmm (0.0-0.7) 05/10/22 19:58 Basophils (Manual) 0.0 % 05/10/22 19:58 Absolute Basophils 0.0 10^3/cmm (0.0-0.2) 05/10/22 19:58 Metamyelocytes 2.0 % 05/10/22 19:58 Nucleated RBCs 1.0 /100WBC (0-1) 05/10/22 19:58 Nucleated RBCs # 0.0 /100WBC 05/12/22 06:12 Platelet Estimate Normal (Normal) 05/10/22 19:58 Specimen Type Arterial 05/11/22 06:18 Sample Site Brachial, right 05/11/22 06:18 ABG pH 7.32 (7.35-7.45) L 05/11/22 06:18 ABG pCO2 35.8 mmHg (35-45) 05/11/22 06:18 ABG pO2 102.0 mmHg (80.0-100.0) H 05/11/22 06:18 ABG HCO3 18.6 mmol/L (22-26) L 05/11/22 06:18 ABG O2 Saturation 98.8 05/11/22 06:18 ABG Base Excess -6.7 mmol/L (-2.0-2.0) L 05/11/22 06:18 Bereket Test Pos 05/11/22 06:18 A-a O2 Gradient 0.3 mmHg (5-10) L 05/11/22 06:18 Hematocrit 39.1 % (42-52) L 05/11/22 06:18 Hgb O2 Saturation 97.0 % (95-100) 05/11/22 06:18 Carboxyhemoglobin 0.7 %THgb (0.4-20.1) 05/11/22 06:18 Methemoglobin 1.1 % (0.4-1.5) 05/11/22 06:18 Total Hemoglobin 12.8 g/dL (14-18) L 05/11/22 06:18 Sodium 146.0 mmol/L (131-143) H 05/11/22 06:18 Potassium 4.2 mmol/L (3.5-5.0) 05/11/22 06:18 Glucose 197.0 mg/dL (70-115) H 05/11/22 06:18 Ionized Calcium 1.2 mmol/L (1.1-1.4) 05/11/22 06:18 O2 Delivery Device Room air 05/11/22 06:18 FiO2 21.0 % 05/11/22 06:18 Advanced Clinical Specialist ID Jesus Alberto 05/11/22 06:18 Sodium 141 mmol/L (136-145) 05/12/22 06:12 Potassium 3.0 mmol/L (3.5-5.1) L 05/12/22 06:12 Chloride 108 mmol/L (98-107) H 05/12/22 06:12 Carbon Dioxide 28 mmol/L (22-29) 05/12/22 06:12 Anion Gap 8.0 (5-19) 05/12/22 06:12 BUN 15 mg/dL (6-20) 05/12/22 06:12 Creatinine 0.7 mg/dL (0.7-1.2) 05/12/22 06:12 GFR Calculation 137.4 mL/min (90-130) H 05/12/22 06:12 Glucose 80 mg/dL (65-115) 05/12/22 06:12 POC Glucose 266 mg/dL (70-110) H 05/12/22 11:03 Calculated Osmolality 292 mOsm/kg (285-295) 05/12/22 06:12 Lactic Acid 0.8 mmol/L (0.5-2.2) 05/11/22 09:56 Lactic Acid (Sepsis) 5.2 mmol/L (0.5-2.2) H* 05/10/22 15:25 Calcium 8.5 mg/dL (8.5-10.5) 05/12/22 06:12 Magnesium 1.8 mg/dL (1.7-2.3) 05/10/22 21:53 Total Bilirubin 0.2 mg/dL (0.15-1.2) 05/12/22 06:12 AST 16 U/L (0-40) 05/12/22 06:12 ALT 31 U/L (0-41) 05/12/22 06:12 Alkaline Phosphatase 100 IU/L (40-130) 05/12/22 06:12 Total Protein 4.9 g/dL (6.6-8.7) L 05/12/22 06:12 Albumin 3.3 g/dL (3.5-5.2) L 05/12/22 06:12 Globulin 1.6 g/dL (1.3-4.6) 05/12/22 06:12 Lipase 13 U/L (13-60) 05/10/22 12:54 Vitamin B12 1471 pg/mL (232-1245) H 05/10/22 12:54 Folate > 20.0 ng/mL (4.5-32.2) 05/10/22 12:54 Procalcitonin 1.69 ng/mL (0-0.5) H 05/10/22 12:45 Urine Color Yellow (Yellow) 05/10/22 16:43 Urine Appearance Clear (CLEAR) 05/10/22 16:43 Urine pH 5 (5-7) 05/10/22 16:43 Ur Specific Vest 1.015 (1.005-1.030) 05/10/22 16:43 Urine Protein Neg (Negative) 05/10/22 16:43 Urine Glucose (UA) Norm (Normal) 05/10/22 16:43 Urine Ketones 1+ (Negative) H 05/10/22 16:43 Urine Blood Neg (Negative) 05/10/22 16:43 Urine Nitrate Negative (Negative) 05/10/22 16:43 Urine Bilirubin Neg (Negative) 05/10/22 16:43 Urine Urobilinogen Norm mg/dL (Negative) 05/10/22 16:43 Ur Leukocyte Esterase Negative (Negative) 05/10/22 16:43 Urine Opiates Screen Negative ng/mL (Negative) 05/10/22 16:42 Ur Barbiturates Screen Negative ng/mL (Negative) 05/10/22 16:42 Ur Phencyclidine Scrn Negative ng/mL (Negative) 05/10/22 16:42 Ur Amphetamines Screen Negative ng/mL (Negative) 05/10/22 16:42 U Benzodiazepines Scrn Negative ng/mL (Negative) 05/10/22 16:42 Urine Cocaine Screen Negative ng/mL (Negative) 05/10/22 16:42 U Marijuana (THC) Screen Negative ng/mL (Negative) 05/10/22 16:42 Coronavirus 229E (PCR) Not detected (NOT DETECT) 05/10/22 15:01 SARS-CoV-2 (PCR) Not detected (NOT DETECT) 05/10/22 15:01 Vitals Last Vital Signs Temp 97.4 F L 05/12/22 08:00 Pulse 79 05/12/22 12:00 Resp 11 L 05/12/22 12:00 BP 127/88 05/12/22 12:00 Pulse Ox 100 05/12/22 12:00 O2 Del Method 05/12/22 06:00 Discharge Plan Discharge Patient Disposition: Home Condition: Stable Prescriptions: New insulin glargine [Lantus Solostar U-100 Insulin] 100 unit/mL (3 mL) insulin pen 10 unit SUBCUT QPM Qty: 15 0RF insulin aspart U-100 [Novolog Flexpen U-100 Insulin] 100 unit/mL (3 mL) insulin pen 10 unit SUBCUT TID Qty: 15 0RF Continued (DME) blood-glucose meter [OneTouch Ultra2 Meter] Kit See Rx Instructions .Route Qty: 1 0RF Rx Instructions: To use TID to check blood sugar levels before taking insulin (DME) blood sugar diagnostic Strip See Rx Instructions .Route Qty: 300 3RF Rx Instructions: To use TID in onetouch meter to check blood sugar, 90 day supply Discontinued Novolin R Flexpen 100 unit/mL (3 mL) insulin pen See Rx Instructions .ROUTE .COMPLEX Qty: 15 0RF Rx Instructions: sliding scale subcutaneously with meals as directed Discharge Orders: Discharge Order (Routine); Ordered 05/12/22 Ordered By: Jens River Referrals: Peace Brothers MD [Primary Care Provider] - 2 weeks Elmer Jones MD [Physician] - 4-7 days (Malfunctioning insulin pump) Discharge Diet: Cardiac and Diabetic Discharge Activity: Resume usual activity and Increase activity as tolerated Patient Instructions: Opioid Safety Activity Restrictions/Additional Instructions: Please follow-up with your hydroelectric systems technician within next 1 week for malfunctioning insulin pump. Meanwhile you can take 10 units of short-acting/NovoLog insulin 3 meals 3 times a day. Take the long-acting/Lantus 10 units at bedtime nightly. Please check your blood sugars daily at home with target fasting blood sugars of less than 120. Please try to abstain from amphetamine use. Discharge Attestations Time Spent in Discharge Care*: greater than 30 min Specific Discharge Activities: educating patient, discussing with case investigator/social workers/dc planners, documenting/other paperwork and evaluating patient/reviewing data Status at Discharge: Cognitive status at discharge: cognitively intact , Behavioral status at discharge: cooperative , Functional status at discharge: independent ambulation , Overall status at discharge: patient is back to baseline Quality Metrics Clinical Quality Measures [ No reported AMI, CVA or VTE this stay] Coding Level of Care Code Acute Chg FW DC note Diagnoses Diabetes type 1, uncontrolled E10.65 DKA (diabetic ketoacidosis) E11.10 High anion gap metabolic acidosis E87.2 Lactic acidosis E87.2 Long-term insulin use Z79.4 Kussmauls breathing E87.2
--- NOTE | 2022-05-12 13:20 | PC.NURSE ---
PIV removed, DC instructions given. Pt verbalizes understanding. Awaiting ride.
--- NOTE | 2022-05-17 06:40 | ED_ITS ---
HPI - General Adult General: Chief complaint: Altered Mental Status Stated complaint: HYPERGLYCEMIA Time Seen by Provider: 05/10/22 12:15 Source: EMS Mode of arrival: EMS Limitations: altered mental status History of Present Illness: 27-year-old male with known history of diabetes mellitus was found to be lethargic altered mental status poorly responsive. Family last seen him several hours ago. Report from EMS at that time he appeared to be normal.. 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 on arrival here and is poorly responsive Onset (ago): unknown Severity: severe Relieving factors: none Exacerbating factors: none Associated symptoms: Reports confusion, dyspnea, malaise and weakness Treatments prior to arrival: none Review of Systems General: Reports: ROS unobtainable due to mental status Const: Reports: malaise Resp: Reports: dyspnea Neuro: Reports: confusion PFS ED PFSH: Medical History MICHAEL (acute kidney injury) Diabetes type 1, uncontrolled History of DKA DKA (diabetic ketoacidosis) Lactic acidosis Leukocytosis Long-term insulin use Metabolic acidosis Pseudohyponatremia Psychiatric care Transaminitis Surgical History No history of previous surgery none known Family History Other Family history unknown Social History Smoking and tobacco status: current every day smoker cigarettes Packs smoked per day: 1 Alcohol intake: former Current occupational status: employed Physical Exam Const: GENERAL APPEARANCE: disheveled and ill appearing NUTRITIONAL APPEARANCE: thin ORIENTATION/CONSCIOUSNESS: Yes patient obtunded HENMT: COMMON NORMALS: normocephalic, atraumatic, hearing grossly normal bilaterally, external ears normal, EAC's normal, TM's normal bilaterally and Normal nasal mucous membranes and turbinates present HEAD & SCALP: normocephalic and atraumatic NOSE: Normal nasal mucous membranes and turbinates present EXTERNAL EAR: Yes external ears normal EXTERNAL AUDITORY CANAL: EAC's normal TYMPANIC MEMBRANE: TM's normal bilaterally Eye: COMMON NORMALS: Equal, round and reactive pupils present, EOMs intact bilaterally, conjunctivae normal and no scleral icterus CONJUNCTIVA: Yes conjunctivae normal PUPIL: Yes Equal, round and reactive pupils present Neck/C-Spine: COMMON NORMALS: full ROM, no lymphadenopathy, supple and no JVD Lymph: LYMPHATIC: no lymphadenopathy noted and no lymphedema noted Resp: COMMON NORMALS: clear to auscultation bilaterally EFFORT & INSPECT ION: Yes abnormal respiratory pattern Kussmaul breathing AUSCULTATION: clear to auscultation bilaterally Cardio: COMMON NORMALS: no JVD, regular rhythm and No murmurs present (Cardio) RATE: tachycardic RHYTHM: regular rhythm GI: COMMON NORMALS: Soft to palpation and No hepatosplenomegaly present AUSCULTATION: Yes normoactive bowel sounds PALPATION: Yes Soft to palpation, No Tenderness to palpation present (GI), No Guarding due to palpation present (GI) and Yes No hepatosplenomegaly present : COMMON NORMALS: Yes no CVA tenderness BLADDER/KIDNEY EXAM: Yes no CVA tenderness Back/Pelvis: COMMON NORMALS: no CVA tenderness Extremity: COMMON NORMALS: normal to inspection, capillary refill normal, no clubbing, cyanosis or edema, no calf tenderness and no pedal edema Skin: COMMON NORMALS: no rashes or lesions noted GENERAL SKIN EXAM: no rashes or lesions noted Course Vital Signs: Vital signs: Vital Signs Temperature 97.4 F L 05/12/22 08:00 Pulse Rate 79 05/12/22 12:00 Respiratory Rate 11 L 05/12/22 12:00 Blood Pressure 127/88 05/12/22 12:00 Pulse Oximetry 100 05/12/22 12:00 Oxygen Delivery Nc thod 05/12/22 06:00 [facility] - General Adult Medical Decision Making Patient in severe DKA. Fluids given to resuscitate as well as insulin and bicarb. Discussed with hospitalist admit to the ICU. Medical Records I reviewed the patient's medical records. Lab Data I reviewed the patient's lab results. : 05/12/22 06:12 05/12/22 06:12 Radiology Impressions Chest X-Ray 05/10/22 13:19 IMPRESSION: Unremarkable chest radiograph. Laboratory Results WBC 45.1 10^3/uL (4.0-10.0) H* 05/10/22 12:54 RBC 4.34 10^6/uL (4.1-5.3) 05/10/22 12:54 Hgb 13.1 g/dL (11.7-16.6) 05/10/22 12:54 Hct 45.5 % (42.0-52.0) 05/10/22 12:54 MCV 104.8 fl (80-94) H 05/10/22 12:54 MCH 30.2 pg (28.0-34.0) 05/10/22 12:54 MCHC 28.8 g/dL (30.0-36.0) L 05/10/22 12:54 RDW 12.4 % (12.1-15.1) 05/10/22 12:54 Plt Count 466 10^3/cmm (130-400) H 05/10/22 12:54 MPV 11.3 fL (7.4-10.4) H 05/10/22 12:54 Neut % (Auto) 79.3 % 05/10/22 12:54 Lymph % (Auto) 10.0 % 05/10/22 12:54 [place] % (Auto) 4.4 % 05/10/22 12:54 Eos % (Auto) 0.1 % 05/10/22 12:54 Baso % (Auto) 0.6 % 05/10/22 12:54 Neut # (Auto) 35.76 10^3/uL (1.8-7.7) H 05/10/22 12:54 Lymph # (Auto) 4.5 10^3/uL (0.8-4.8) 05/10/22 12:54 [place] # (Auto) 2.0 10^3/uL (0.2-0.9) H 05/10/22 12:54 Eos # (Auto) 0.0 10^3/uL (0.0-0.8) 05/10/22 12:54 Baso # (Auto) 0.3 10^3/uL (0.0-0.1) H 05/10/22 12:54 Nucleated RBC % (auto) 0 % 05/10/22 12:54 Nucleated RBCs # 0.0 /100WBC 05/10/22 12:54 Specimen Type Arterial 05/10/22 12:39 Sample Site Radial, left 05/10/22 12:39 ABG pH 6.82 (7.35-7.45) L* 05/10/22 12:39 ABG pCO2 9.7 mmHg (35-45) L* 05/10/22 12:39 ABG pO2 161.0 mmHg (80.0-100.0) H 05/10/22 12:39 ABG HCO3 1.6 mmol/L (22-26) L 05/10/22 12:39 ABG O2 Saturation 98.7 05/10/22 12:39 ABG Base Excess -31.5 mmol/L (-2.0-2.0) L 05/10/22 12:39 Bereket Test Pos 05/10/22 12:39 A-a O2 Gradient Not Reportable 05/10/22 12:39 Hematocrit 39.9 % (42-52) L 05/10/22 12:39 Hgb O2 Saturation 97.0 % (95-100) 05/10/22 12:39 Carboxyhemoglobin 0.5 %THgb (0.4-20.1) 05/10/22 12:39 Methemoglobin 1.2 % (0.4-1.5) 05/10/22 12:39 Total Hemoglobin 13.0 g/dL (14-18) L 05/10/22 12:39 Sodium 131.0 mmol/L (131-143) 05/10/22 12:39 Potassium 6.2 mmol/L (3.5-5.0) H 05/10/22 12:39 Glucose 852.0 mg/dL (70-115) H 05/10/22 12:39 Ionized Calcium 1.3 mmol/L (1.1-1.4) 05/10/22 12:39 O2 Delivery Device Room air 05/10/22 12:39 FiO2 21.0 % 05/10/22 12:39 Sales Trader ID Cak 05/10/22 12:39 Sodium 132 mmol/L (136-145) L 05/10/22 12:54 Sodium Cancelled 05/10/22 12:54 Potassium 6.4 mmol/L (3.5-5.1) H 05/10/22 12:54 Potassium Cancelled 05/10/22 12:54 Chloride 88 mmol/L (98-107) L 05/10/22 12:54 Chloride Cancelled 05/10/22 12:54 Carbon Dioxide 4 mmol/L (22-29) L* 05/10/22 12:54 Carbon Dioxide Cancelled 05/10/22 12:54 Anion Gap 46.4 (5-19) H 05/10/22 12:54 Anion Gap Cancelled 05/10/22 12:54 BUN 35 mg/dL (6-20) H 05/10/22 12:54 BUN Cancelled 05/10/22 12:54 Creatinine 1.8 mg/dL (0.7-1.2) H 05/10/22 12:54 Creatinine Cancelled 05/10/22 12:54 GFR Calculation 46.2 mL/min (90-130) L 05/10/22 12:54 GFR Calculation Cancelled 05/10/22 12:54 Glucose 880 mg/dL (65-115) H* 05/10/22 12:54 Glucose Cancelled 05/10/22 12:54 POC Glucose > 600 mg/dL (70-110) H* 05/10/22 12:33 Calculated Osmolality 325 mOsm/kg (285-295) H 05/10/22 12:54 Calculated Osmolality Cancelled 05/10/22 12:54 Lactic Acid 8.2 mmol/L (0.5-2.2) H* 05/10/22 12:54 Calcium 8.9 mg/dL (8.5-10.5) 05/10/22 12:54 Calcium Cancelled 05/10/22 12:54 Magnesium 2.9 mg/dL (1.7-2.3) H 05/10/22 12:54 Total Bilirubin 0.2 mg/dL (0.15-1.2) 05/10/22 12:54 AST 21 U/L (0-40) 05/10/22 12:54 ALT 54 U/L (0-41) H 05/10/22 12:54 Alkaline Phosphatase 181 IU/L (40-130) H 05/10/22 12:54 Total Protein 5.6 g/dL (6.6-8.7) L 05/10/22 12:54 Albumin 3.4 g/dL (3.5-5.2) L 05/10/22 12:54 Globulin 2.2 g/dL (1.3-4.6) 05/10/22 12:54 Lipase 13 U/L (13-60) 05/10/22 12:54 Vitamin B12 1471 pg/mL (232-1245) H 05/10/22 12:54 Folate > 20.0 ng/mL (4.5-32.2) 05/10/22 12:54 Procalcitonin 1.69 ng/mL (0-0.5) H 05/10/22 12:45 Critical Care Time Critical Care Time: Critical Care Time: Yes Total Critical Care Time: 60 Attestation: The high probability of a clinically significant, sudden or life threatening deterioration of the patient's cardiovascular, metabolic system(s) required my full and direct attention, intervention and personal management. The critical care time is as shown. This time is in addition to time spent performing any reported procedures but includes the following: [x] Data and vital sign review and interpretation [x] Patient assessment, examination and intervention [x] Documentation [x] Medication orders and management Patient in severe DKA with a pH of 6.82. The extent of his DKA is immediately life-threatening at this point Discharge Plan Discharge Patient Disposition: Admitted As Inpatient Admit Provider: Jens River Clinical Impression: DKA (diabetic ketoacidosis) Condition: Stable Discharge Diet: Cardiac and Diabetic Discharge Activity: Resume usual activity and Increase activity as tolerated Coding Level of Care Code ED Assistant Professor Of English for Jazmín Agosto
== END 2022-05-12 14:06 | disposition home or self-care (01) | DRG 919 ==
LOC: ER 13:18 → ICU 15:17
PROVIDERS: Student in an Organized Health Care Education/Training Program; Admitting Provider Student in an Organized Health Care Education/Training Program; Emergency Provider Family Medicine; PCP Family Medicine; Visit Provider Student in an Organized Health Care Education/Training Program
DX: T85.694A Other mechanical complication of insulin pump, initial encounter (principal); E10.10 Type 1 diabetes mellitus with ketoacidosis without coma; T38.3X1A Poisoning by insulin and oral hypoglycemic [antidiabetic] drugs, accidental (unintentional), initial encounter; Z96.41 Presence of insulin pump (external) (internal); F15.10 Other stimulant abuse, uncomplicated; F17.210 Nicotine dependence, cigarettes, uncomplicated
CPT/HCPCS: 36415; 36416; 36600; 71045; 80048; 80051; 80053; 80306; 81003; 82330; 82607; 82746; 82805; 82962; 83605; 83690; 83735; 84145; 85007; 85025; 85027; 87040; 87635; 93005; 94664; 96361; 96365; 96372; 96375; 99285; J1644; J1815; J2405; J2543; J3370; J3480; J3490; J7030; J7050; J7799

== ENCOUNTER → 2022-06-01 08:24 | Outpatient (BNVA) | payer MEDICAID, SELFPAY | PROVIDERS: PCP Family Medicine; Referring Provider Student in an Organized Health Care Education/Training Program; Visit Provider Internal Medicine | DX: E10.649 Type 1 diabetes mellitus with hypoglycemia without coma (principal); E10.10 Type 1 diabetes mellitus with ketoacidosis without coma; T38.3X5A Adverse effect of insulin and oral hypoglycemic [antidiabetic] drugs, initial encounter; Z09 Encounter for follow-up examination after completed treatment for conditions other than malignant neoplasm; E16.0 Drug-induced hypoglycemia without coma; E04.1 Nontoxic single thyroid nodule; E05.90 Thyrotoxicosis, unspecified without thyrotoxic crisis or storm; F17.210 Nicotine dependence, cigarettes, uncomplicated; Z79.4 Long term (current) use of insulin | CPT/HCPCS: 99214 ==

== ENCOUNTER 2022-06-12 15:58 | Inpatient (IN) | payer MEDICAID, SELFPAY ==
[2022-06-12] VITALS (40 sets, daily range): BP systolic 126–164; BP diastolic 84–108; PULSE 124–154; RESP 15–33; TEMP 36.6; O2SAT 91–100; BMI 18.6
--- NOTE | 2022-06-12 16:17 | XRR_ITS ---
PROCEDURE INFORMATION: Exam: XR Chest Exam date and time: 06/12/2022 4:58 PM Age: 27 years old Clinical indication: Cough and dyspnea; Additional info: Dyspnea/cough TECHNIQUE: Imaging protocol: Radiologic exam of the chest. Views: 1 view. COMPARISON: CR XR chest 1V portable [id number] 05/10/2022 1:45 PM FINDINGS: Lungs: Lungs are clear bilaterally. Pleural spaces: No pleural effusion. No pneumothorax. Heart/Mediastinum: The cardiac silhouette and mediastinal contours are unremarkable. Bones/joints: Unremarkable for age. XR/XR chest 1V portable [id number] IMPRESSION: Negative chest radiograph.
--- NOTE | 2022-06-12 16:23 | W.ED.GENADLT ---
HPI - General Adult General: Chief complaint: General Medical Stated complaint: HYPERGLYCEMIA/ AMS Time Seen by Provider: 06/12/22 16:02 Source: patient Mode of arrival: ambulatory Limitations: no limitations History of Present Illness: 27-year-old male presents emergency room with nausea and vomiting. Patient is a known diabetic acid frequent episodes of DKA. Has not been taking his insulin at home for the last 4 days his blood sugars in excess of 600 he has bilious vomiting he denies any fever sweats chills cough or shortness of breath he has had a lot of abdominal cramping is this is progressed.1 month ago he was admitted for DKA as well. At that time it was due to noncompliance with his home regimen as well. Onset (ago): day(s) (4) Location: abdomen Severity: severe Quality: aching Pain Consistency: constant Relieving factors: none Exacerbating factors: none Associated symptoms: Reports confusion, diaphoresis, decreased appetite, dyspnea, malaise, nausea, short of breath and vomiting; Deny chest pain, cough, fevers/chills, headache(s), rash, palpitations, seizures, syncope or weakness Treatments prior to arrival: none Review of Systems Const: Reports: fatigue, malaise and diaphoresis; Denies: fever(s) or chills ENMT: Denies: throat pain, ear or mastoid pain, nasal discharge or nasal congestion Card: Denies: chest pain, palpitations or syncope Resp: Reports: dyspnea GI: Reports: abdominal pain, nausea and vomiting : Reports: urinary frequency; Denies: flank pain, difficulty urinating, dysuria or urinary urgency Skin/Breast: Denies: rash Neuro: Reports: confusion; Denies: headache(s) PFSH ED PFSH: Medical History MICHAEL (acute kidney injury) Diabetes type 1, uncontrolled History of DKA DKA (diabetic ketoacidosis) High anion gap metabolic acidosis Hyperkalemia Hyperkalemia Lactic acidosis Leukocytosis Leukocytosis Long-term insulin use Metabolic acidosis Pseudohyponatremia Psychiatric care Tachycardia Transaminitis Surgical History No history of previous surgery none known Family History Other Family history unknown Social History Smoking and tobacco status: current every day smoker cigarettes Packs smoked per day: 1 Alcohol intake: former Current occupational status: employed Physical Exam Const: GENERAL APPEARANCE: cooperative ORIENTATION/CONSCIOUSNESS: Yes awake, Yes oriented to person, Yes oriented to place and Yes oriented to time HENMT: COMMON NORMALS: normocephalic, atraumatic, hearing grossly normal bilaterally, external ears normal, EAC's normal, TM's normal bilaterally, Normal nasal mucous membranes and turbinates present, moist oral mucous membranes and oropharynx normal HEAD & SCALP: normocephalic and atraumatic NOSE: Normal nasal mucous membranes and turbinates present EXTERNAL EAR: Yes external ears normal EXTERNAL AUDITORY CANAL: EAC's normal TYMPANIC MEMBRANE: TM's normal bilaterally Eye: COMMON NORMALS: Equal, round and reactive pupils present, EOMs intact bilaterally, conjunctivae normal and no scleral icterus CONJUNCTIVA: Yes conjunctivae normal PUPIL: Yes Equal, round and reactive pupils present Neck/C-Spine: COMMON NORMALS: full ROM, no lymphadenopathy, supple and no JVD Lymph: LYMPHATIC: no lymphadenopathy noted and no lymphedema noted Resp: COMMON NORMALS: normal respiratory effort, No retractions, No use of accessory muscles and clear to auscultation bilaterally EFFORT & INSPECTION: Yes tachypneic AUSCULTATION: clear to auscultation bilaterally Cardio: COMMON NORMALS: no JVD, regular rhythm and No murmurs present (Cardio) RATE: tachycardic RHYTHM: regular rhythm GI: COMMON NORMALS: Soft to palpation and No hepatosplenomegaly present AUSCULTATION: Yes normoactive bowel sounds PALPATION: Yes Soft to palpation, No Tenderness to palpation present (GI), No Guarding due to palpation present (GI) and Yes No hepatosplenomegaly present Extremity: COMMON NORMALS: normal to inspection, capillary refill normal, no clubbing, cyanosis or edema, no calf tenderness and no pedal edema Neuro: SENSORIUM/ORIENTATION: Yes oriented to person, Yes oriented to place and Yes oriented to time Skin: COMMON NORMALS: no rashes or lesions noted GENERAL SKIN EXAM: no rashes or lesions noted Course Vital Signs: Vital signs: Vital Signs Temperature 98.3 F 06/14/22 10:56 Pulse Rate 96 06/14/22 10:56 Respiratory Rate 15 06/14/22 10:56 Blood Pressure 146/96 06/14/22 10:56 Pulse Oximetry 95 06/14/22 10:56 Oxygen Delivery Me thod 06/14/22 07:44 MDM - General Adult Medical Decision Making Early DKA. Initial glucose 1168. Patient given IV fluids started on insulin discussed with hospitalist orders written admit to ICU Medical Records I reviewed the patient's medical records. Lab Data I reviewed the patient's lab results. : 06/14/22 04:48 06/14/22 04:48 Radiology Impressions Chest X-Ray 06/12/22 16:17 IMPRESSION: Negative chest radiograph. Laboratory Results WBC 33.2 10^3/uL (4.0-10.0) H* 06/12/22 15:50 RBC 5.27 10^6/uL (4.1-5.3) 06/12/22 15:50 Hgb 16.2 g/dL (11.7-16.6) 06/12/22 15:50 Hct 53.6 % (42.0-52.0) H 06/12/22 15:50 MCV 101.7 fl (80-94) H 06/12/22 15:50 MCH 30.7 pg (28.0-34.0) 06/12/22 15:50 MCHC 30.2 g/dL (30.0-36.0) 06/12/22 15:50 RDW 12.9 % (12.1-15.1) 06/12/22 15:50 Plt Count 390 10^3/cmm (130-400) 06/12/22 15:50 MPV 11.8 fL (7.4-10.4) H 06/12/22 15:50 Neut % (Auto) 78.7 % 06/12/22 15:50 Lymph % (Auto) 10.6 % 06/12/22 15:50 [place] % (Auto) 6.7 % 06/12/22 15:50 Eos % (Auto) 0.1 % 06/12/22 15:50 Baso % (Auto) 0.6 % 06/12/22 15:50 Neut # (Auto) 26.12 10^3/uL (1.8-7.7) H 06/12/22 15:50 Lymph # (Auto) 3.5 10^3/uL (0.8-4.8) 06/12/22 15:50 [place] # (Auto) 2.2 10^3/uL (0.2-0.9) H 06/12/22 15:50 Eos # (Auto) 0.0 10^3/uL (0.0-0.8) 06/12/22 15:50 Baso # (Auto) 0.2 10^3/uL (0.0-0.1) H 06/12/22 15:50 Nucleated RBC % (auto) 0 % 06/12/22 15:50 Nucleated RBCs # 0.0 /100WBC 06/12/22 15:50 Specimen Type Arterial 06/12/22 16:22 Sample Site Radial, left 06/12/22 16:22 ABG pH 7.07 (7.35-7.45) L* 06/12/22 16:22 ABG pCO2 6.9 mmHg (35-45) L* 06/12/22 16:22 ABG pO2 152.0 mmHg (80.0-100.0) H 06/12/22 16:22 ABG HCO3 2.0 mmol/L (22-26) L 06/12/22 16:22 ABG O2 Saturation 99.5 06/12/22 16:22 ABG Base Excess -25.6 mmol/L (-2.0-2.0) L 06/12/22 16:22 Bereket Test Pos 06/12/22 16:22 A-a O2 Gradient Not Reportable 06/12/22 16:22 Hematocrit 47.8 % (42-52) 06/12/22 16:22 Hgb O2 Saturation 97.7 % (95-100) 06/12/22 16:22 Carboxyhemoglobin 1.0 %THgb (0.4-20.1) 06/12/22 16:22 Methemoglobin 0.8 % (0.4-1.5) 06/12/22 16:22 Total Hemoglobin 15.6 g/dL (14-18) 06/12/22 16:22 Sodium 118.0 mmol/L (131-143) L 06/12/22 16:22 Potassium 6.9 mmol/L (3.5-5.0) H 06/12/22 16:22 Glucose > 1080.0 mg/dL (70-115) H 06/12/22 16:22 Ionized Calcium 1.1 mmol/L (1.1-1.4) 06/12/22 16:22 O2 Delivery Device Room air 06/12/22 16:22 FiO2 21.0 % 06/12/22 16:22 Graduate Nurse ID Caak 06/12/22 16:22 Sodium 118 mmol/L (136-145) L* 06/12/22 15:50 Potassium 7.5 mmol/L (3.5-5.1) H* 06/12/22 15:50 Chloride 77 mmol/L (98-107) L 06/12/22 15:50 Carbon Dioxide 3 mmol/L (22-29) L* 06/12/22 15:50 Anion Gap 45.5 (5-19) H 06/12/22 15:50 BUN 34 mg/dL (6-20) H 06/12/22 15:50 Creatinine 1.9 mg/dL (0.7-1.2) H 06/12/22 15:50 GFR Calculation 43.4 mL/min (90-130) L 06/12/22 15:50 Glucose 1168 mg/dL (65-115) H* 06/12/22 15:50 POC Glucose > 600 mg/dL (70-110) H* 06/12/22 17:54 Calculated Osmolality 313 mOsm/kg (285-295) H 06/12/22 15:50 Calcium 9.1 mg/dL (8.5-10.5) 06/12/22 15:50 Total Bilirubin 0.4 mg/dL (0.15-1.2) 06/12/22 15:50 AST 68 U/L (0-40) H 06/12/22 15:50 ALT 89 U/L (0-41) H 06/12/22 15:50 Alkaline Phosphatase 191 U/L (40-130) H 06/12/22 15:50 Creatine Kinase 52 U/L (39-308) 06/12/22 15:50 Total Protein 7.0 g/dL (6.6-8.7) 06/12/22 15:50 Albumin 4.2 g/dL (3.5-5.2) 06/12/22 15:50 Globulin 2.8 g/dL (1.3-4.6) 06/12/22 15:50 Serum Ketones Positive (Negative) H 06/12/22 15:50 Discharge Plan Discharge Patient Disposition: Admitted As Inpatient Admit Provider: Aden Godinez Clinical Impression: High anion gap metabolic acidosis, DKA (diabetic ketoacidosis), Acute hyperkalemia, Pseudohyponatremia Condition: Stable Discharge Diet: Diabetic Coding Level of Care Code ED Private Equity Associate for Chg Fwd Exam Comprehensive
[2022-06-12 16:24] LABS: Basophils # 0.2 10^3/uL (0.0-0.1); Basophils % 0.6 %; Eosinophils % 0.1 %; Hematocrit 53.6 % (42.0-52.0); Hemoglobin 16.2 g/dL (11.7-16.6); Lymphocytes # 3.5 10^3/uL (0.8-4.8); Lymphocytes % 10.6 %; Mean Corpuscular HGB Conc 30.2 g/dL (30.0-36.0); Mean Corpuscular Hemoglobin 30.7 pg (28.0-34.0); Mean Corpuscular Volume 101.7 fl (80-94); Mean Platelet Volume 11.8 fL (7.4-10.4); Monocytes # 2.2 10^3/uL (0.2-0.9); Monocytes % 6.7 %; Neutrophils # 26.12 10^3/uL (1.8-7.7); Neutrophils % 78.7 %; Nucleated Red Blood Cells % 0 %; Platelet Count 390 10^3/cmm (130-400); Red Blood Count 5.27 10^6/uL (4.1-5.3); Red Cell Distribution Width 12.9 % (12.1-15.1)
[2022-06-12] MEDS: promethazine 25 mg/mL SDV 1 mL IM (16:24)
[2022-06-12] MEDS: insulin regular-human 100 units/1 mL 10 UNIT IVP (16:25)
[2022-06-12] MEDS: sodium chloride 0.9% 1,000 ML 999 ML IV ×2 (16:25→16:57)
[2022-06-12 16:26] LABS: White Blood Count 33.2 10^3/uL (4.0-10.0)
[2022-06-12 16:34] LABS: Arterial Blood Gas Hematocrit 47.8 % (42-52); Base Excess ABG -25.6 mmol/L (-2.0-2.0); Blood Gas Allen Test Pos; Blood Gas Operator Identificat CAAK; Blood Gas Sample Site Radial, left; Blood Gas Sample Type Arterial; Glucose Level-ABG > 1080.0 mg/dL (70-115); HGB O2 Sat 97.7 % (95-100); Ionized Calcium Level - ABG 1.1 mmol/L (1.1-1.4); Methemoglobin 0.8 % (0.4-1.5); Oxygen Device ROOM AIR; Oxygen Saturation ABG 99.5; Potassium Level - ABG 6.9 mmol/L (3.5-5.0); Total Hemoglobin 15.6 g/dL (14-18)
[2022-06-12 16:35] LABS: ABG PCO2 6.9 mmHg (35-45); ABG PH Result 7.07 (7.35-7.45)
[2022-06-12 16:42] LABS: Ketone (Acetest) Serum Positive (Negative)
[2022-06-12 16:52] LABS: Glucose Point of Care > 600 mg/dL (70-110)
[2022-06-12 16:59] LABS: Alanine Aminotransferase 89 U/L (0-41); Albumin Level 4.2 g/dL (3.5-5.2); Alkaline Phosphatase 191 U/L (40-130); Blood Urea Nitrogen 34 mg/dL (6-20); Calcium 9.1 mg/dL (8.5-10.5); Chloride 77 mmol/L (98-107); Creatine Phosphokinase 52 U/L (39-308); Globulin 2.8 g/dL (1.3-4.6); Glomerular Filtration Rate 43.4 mL/min (90-130); Total Bilirubin 0.4 mg/dL (0.15-1.2)
[2022-06-12 17:10] LABS: Osmolality Calculated 313 mOsm/kg (285-295)
[2022-06-12 17:13] LABS: Anion Gap 45.5 (5-19); Aspartate Amino Transferase 68 U/L (0-40)
[2022-06-12 17:14] LABS: Potassium 7.5 mmol/L (3.5-5.1); Sodium 118 mmol/L (136-145)
[2022-06-12 17:15] LABS: Carbon Dioxide 3 mmol/L (22-29); Glucose 1168 mg/dL (65-115)
[2022-06-12] MEDS: insulin regular-human 250 UNIT in sodium chloride 0.9% 250 ML 33.53 UNIT IV (17:19)
--- NOTE | 2022-06-12 17:35 | PM.HP ---
Providers/Chief Complaint Admitting Physician: Aden Godinez MD Primary Care Provider: Peace Brothers MD Chief Complaint: HYPERGLYCEMIA/ AMS History of Present Illness Jean Miller is 27 y o male with PMH of DM1 on insulin pump at home was admitted with c/o nausea, vomitting, patient has history of insulin noncompliance, he was not taking insulin 4 days. Upon arrival in the ER he was worked up for above mentioned complaints. Pertinent imaging studies: X-ray chest: No infiltrates no effusion no pneumothorax Pertinent labs: WBC 33.2 , H&H 16.2/ 53 PLT : 390 , sodium 118, serum potassium: 7.5 , serum bicarb: 3 , BUN / serum creatinine: 34/1.9 , random blood sugar: 1168 , AST 68 ALT 89 ALP 191 ABG: pH 7.07, PCO2: 6 , PO2 152, Review of Systems General: Reports: 10 or more systems reviewed and unremarkable except in HPI and below Const: Denies: fever(s), chills, body aches, change in appetite or diaphoresis Card: Denies: palpitations, edema, swelling of feet/ankles, dyspnea on exertion, orthopnea or leg pain with exertion Resp: Denies: dyspnea, productive cough, wheezing or pain on inspiration GI: Denies: abdominal pain, diarrhea or constipation : Denies: flank pain or difficulty urinating Musc: Denies: back pain, extremity pain or extremity swelling Neuro: Denies: headache(s), difficulty walking or confusion Medications/Allergies Home Medications Medication Instructions Recorded Confirmed Last Taken Type blood-glucose meter (OneTouch #1 ea 04/02/22 06/12/22 Unknown Rx Ultra2 Meter) blood sugar diagnostic #300 ea 05/12/22 06/12/22 Unknown Rx insulin detemir U-100 100 unit/mL 20 unit SUBCUT QPM 06/12/22 06/12/22 Unknown History (3 mL) subcutaneous pen (Levemir FlexTouch U-100 Insulin) insulin regular human 100 unit/mL See Rx Instructions .Route .COMPLEX 06/12/22 06/12/22 Unknown History (3 mL) subcutaneous pen (Novolin R Flexpen) Allergies Allergy/AdvReac Type Severity Reaction Status Date / Time No Known Allergies Allergy Verified 06/12/22 16:40 PFSH Acute PFSH: Medical History (Updated 06/12/22 @ 17:39 by Aden Godinez MD) MICHAEL (acute kidney injury) Diabetes type 1, uncontrolled History of DKA DKA (diabetic ketoacidosis) Hyperkalemia Lactic acidosis Leukocytosis Long-term insulin use Metabolic acidosis Pseudohyponatremia Psychiatric care Transaminitis Surgical History No history of previous surgery none known Family History Other Family history unknown Social History Smoking and tobacco status: current every day smoker cigarettes Packs smoked per day: 1 Alcohol intake: former Current occupational status: employed Vitals/I&O/Wt Last Vital Signs Temp 98 F 06/12/22 16:03 Pulse 124 H 06/12/22 16:03 Resp 33 H 06/12/22 16:03 BP 141/85 06/12/22 16:03 Pulse Ox 100 06/12/22 16:03 O2 Del Method 06/12/22 16:03 06/12/22 06/12/22 06/12/22 06:59 14:59 22:59 Intake Total 532.8 / 532.8 Balance 532.8 / 532.8 Weight last 48 hrs Weight 58.967 kg Physical Exam Resp: COMMON NORMALS: clear to auscultation bilaterally AUSCULTATION: clear to auscultation bilaterally Cardio: COMMON NORMALS: regular rate, regular rhythm, S1 normal heart sound present, S2 normal heart sound present, No gallops present (Cardio), No murmurs present (Cardio), No rub (Cardio) and Peripheral pulses 2+ throughout RATE: regular rate RHYTHM: regular rhythm HEART SOUNDS: S1 normal heart sound present and S2 normal heart sound present PERIPHERAL PULSES: Peripheral pulses 2+ throughout GI: COMMON NORMALS: Normal to inspection, nondistended, normoactive bowel sounds present, Soft to palpation, non-tender, No hepatosplenomegaly present and no masses AUSCULTATION: Yes normoactive bowel sounds PALPATION: Yes Soft to palpation and Yes No hepatosplenomegaly present RECTAL EXAM: Yes deferred Extremity: COMMON NORMALS: no clubbing, cyanosis or edema and no pedal edema Data : 06/12/22 15:50 06/12/22 15:50 Micro: Microbiology 06/12/22 16:52 Blood Culture - Preliminary Blood SPECIMEN COLLECTED 06/12/22 16:46 Blood Culture - Preliminary Blood SPECIMEN COLLECTED A&P Assessment and plan (1) High anion gap metabolic acidosis: Status: Acute (2) DKA (diabetic ketoacidosis): Status: Acute (3) Tachycardia: Status: Acute (4) Leukocytosis: Status: Acute (5) Pseudohyponatremia: Status: Acute (6) Hyperkalemia: Status: Acute Plan 27 y o male with PMH of DM1 on insulin pump at home was admitted with c/o nausea, vomitting, patient has history of insulin noncompliance, he was not taking insulin 4 days. Assessment: DKA Increased anion gap metabolic acidosis Prerenal MICHAEL on CKD secondary to dehydration secondary to DKA Pseudohyponatremia Hyperkalemia Transaminitis Leukocytosis Plan: Currently is on DKA protocol Monitor BMP every 4 hours, fingerstick glucose every hour, Continue IV hydration with normal saline at 150 cc an hour Monitor intake output charting Follow blood culture Urine culture Will stay away from antibiotics, elevated WBC count is likely secondary to severe dehydration Monitor ABG Continue telemetry monitoring We will avoid any bicarb push for now, as with correction of metabolic acidosis with insulin infusion and IV fluids, serum bicarb will improve. DVT prophylaxis; on Lovenox CODE STATUS: Full code Attestations Medical Necessity Statement*: Patient needs to be in hospital for the management of DKA.Anticipated LOS Greater then 2 midnights. Time Spent in Patient Care: Greater than 35 minutes (>than 50% of time spent in counselling and/or direct pt care on unit). Coding Level of Care Code Acute Electrical Engineering Draftsperson for Chg Fwd Exam Expanded Problem Focused Diagnoses High anion gap metabolic acidosis E87.2 DKA (diabetic ketoacidosis) E11.10 Tachycardia R00.0 Leukocytosis D72.829 Pseudohyponatremia R79.89 Hyperkalemia E87.5
[2022-06-12] MEDS: enoxaparin 40 mg/0.4 mL Syringe SUBCUT (17:58)
[2022-06-12] MEDS: sodium chloride 0.9% 1,000 ML 150 ML IV (17:58)
[2022-06-12] MEDS: ondansetron 2 mg/ML SDV 2 mL 4 MG IVP (18:44)
[2022-06-12 18:53] LABS: Urine Appearance Clear (CLEAR); Urine Color Colorless (Yellow); pH Urine 5 (5-7)
[2022-06-12 18:54] LABS: Add Urine Culture? No; Add Urine Microscopic? YES; Bilirubin Urine Neg (Negative); Blood Urine 2+ (Negative); Glucose Urine UA 4+ (Normal); Hyaline Casts Urine 0-4 /lpf; Ketones Urine 2+ (Negative); Leukocyte Esterase Urine Negative (Negative); Nitrate Urine Negative (Negative); Protein Urine Neg (Negative); RBC Urine 0-4 /hpf (0-2); Squamous Epithelial Cell Urine 0-4 /hpf (0-5); Urobilinogen Urine Norm (Negative); WBC Urine 0-4 /hpf (0-5)
[2022-06-12 18:58] LABS: Glucose Point of Care > 600 mg/dL (70-110)
[2022-06-12 19:01] LABS: Anion Gap 41.4 (5-19); Blood Urea Nitrogen 30 mg/dL (6-20); Calcium 8.9 mg/dL (8.5-10.5); Chloride 87 mmol/L (98-107); Creatinine Clr Calc Pharmacy 67.2739; Glomerular Filtration Rate 61.7 mL/min (90-130); Osmolality Calculated 310 mOsm/kg (285-295); Potassium 4.4 mmol/L (3.5-5.1); Sodium 130 mmol/L (136-145)
[2022-06-12 19:07] LABS: Carbon Dioxide 6 mmol/L (22-29)
[2022-06-12 19:08] LABS: Glucose 704 mg/dL (65-115)
[2022-06-12 20:06] LABS: Glucose Point of Care 542 mg/dL (70-110)
[2022-06-12] MEDS: sodium bicarbonate 50 MEQ in sodium chloride 0.45% 1,000 ML 150 MEQ IV (20:34)
[2022-06-12] MEDS: lidocaine 1% 5 ML in potassium chloride premix 100 ML 25 ML IV (20:43)
[2022-06-12 21:04] LABS: Glucose Point of Care 276 mg/dL (70-110)
[2022-06-12 22:00] LABS: Glucose Point of Care 181 mg/dL (70-110)
[2022-06-12] MEDS: sodium bicarbonate 150 MEQ in dextrose 5% 1,000 ML 100 MEQ IV (22:16)
[2022-06-12 22:31] LABS: Anion Gap 24.1 (5-19); Blood Urea Nitrogen 26 mg/dL (6-20); Calcium 9.4 mg/dL (8.5-10.5); Carbon Dioxide 15 mmol/L (22-29); Chloride 99 mmol/L (98-107); Glomerular Filtration Rate 81.6 mL/min (90-130); Glucose 221 mg/dL (65-115); Osmolality Calculated 290 mOsm/kg (285-295); Potassium 4.1 mmol/L (3.5-5.1); Sodium 134 mmol/L (136-145)
[2022-06-12 23:01] LABS: Glucose Point of Care 140 mg/dL (70-110)
[2022-06-13] VITALS (25 sets, daily range): BP systolic 129–173; BP diastolic 90–118; PULSE 105–140; RESP 13–20; TEMP 36.6–37.2; O2SAT 96–100
[2022-06-13] LABS: Glucose Point of Care 123 mg/dL (70-110)
--- NOTE | 2022-06-13 00:16 | PC.NURSE ---
High BP Notified Dr. Mosley notified of BP trending up from 130's/90's to current BP of 166/110. Received new order to decrease D5/bicarb to 75ml/hr from previous 100ml/hr.
[2022-06-13 01:05] LABS: Glucose Point of Care 109 mg/dL (70-110)
[2022-06-13 02:03] LABS: Glucose Point of Care 95 mg/dL (70-110)
[2022-06-13 02:16] LABS: Basophils % 0.1 %; Hematocrit 40.9 % (42.0-52.0); Hemoglobin 14.6 g/dL (11.7-16.6); Lymphocytes # 2.2 10^3/uL (0.8-4.8); Lymphocytes % 10.1 %; Mean Platelet Volume 10.6 fL (7.4-10.4); Monocytes # 1.5 10^3/uL (0.2-0.9); Monocytes % 6.6 %; Neutrophils # 17.96 10^3/uL (1.8-7.7); Neutrophils % 82.2 %; Nucleated Red Blood Cells % 0 %; Platelet Count 284 10^3/cmm (130-400); Red Blood Count 4.71 10^6/uL (4.1-5.3); Red Cell Distribution Width 12.6 % (12.1-15.1); White Blood Count 21.9 10^3/uL (4.0-10.0)
[2022-06-13 02:24] LABS: Mean Corpuscular Volume 86.8 fl (80-94)
[2022-06-13 02:25] LABS: Mean Corpuscular HGB Conc 35.7 g/dL (30.0-36.0)
[2022-06-13 02:45] LABS: Alanine Aminotransferase 62 U/L (0-41); Albumin Level 3.5 g/dL (3.5-5.2); Alkaline Phosphatase 117 U/L (40-130); Anion Gap 15.5 (5-19); Aspartate Amino Transferase 28 U/L (0-40); Blood Urea Nitrogen 22 mg/dL (6-20); Calcium 9.2 mg/dL (8.5-10.5); Carbon Dioxide 24 mmol/L (22-29); Chloride 101 mmol/L (98-107); Globulin 1.8 g/dL (1.3-4.6); Glomerular Filtration Rate 102.8 mL/min (90-130); Glucose 89 mg/dL (65-115); Lactic Sepsis W/Reflex 1.5 mmol/L (0.5-2.2); Magnesium 1.8 mg/dL (1.7-2.3); Osmolality Calculated 285 mOsm/kg (285-295); Phosphorus 3.6 mg/dL (2.5-4.5); Potassium 4.5 mmol/L (3.5-5.1); Sodium 136 mmol/L (136-145); Total Bilirubin 0.5 mg/dL (0.15-1.2); Total Protein 5.3 g/dL (6.6-8.7)
[2022-06-13 02:49] LABS: Procalcitonin 1.92 ng/mL (0-0.5)
[2022-06-13] MEDS: acetaminophen 325 mg Tablet 650 MG PO (02:50)
[2022-06-13 03:06] LABS: Glucose Point of Care 88 mg/dL (70-110)
--- NOTE | 2022-06-13 03:14 | PC.NURSE ---
Stopped Insulin drip Per Dr. Mosley stopped insulin drip and IV fluids. BG is 88. Pt is awake, alert, and eating a sandwich
[2022-06-13 04:01] LABS: Glucose Point of Care 89 mg/dL (70-110)
[2022-06-13] MEDS: hyDRALAzine 20 mg/mL INJ 1 mL 10 MG IVP (04:16)
--- NOTE | 2022-06-13 04:24 | PC.NURSE ---
High BP Pt BP is 165/115. Dr. Dimitri covarrubiasied. Recieved order for Hydralazine 10 mg IVP ONCE.
--- NOTE | 2022-06-13 04:27 | PC.NURSE ---
Physician notified of no sliding scale insulin order in chart. No new orders at this time.
[2022-06-13 04:36] LABS: ABG PCO2 34.2 mmHg (35-45); ABG PH Result 7.46 (7.35-7.45); Alveolar-Arterial Oxygen Gradi 2.6 mmHg (5-10); Arterial Blood Gas Hematocrit 45.8 % (42-52); Base Excess ABG 1.2 mmol/L (-2.0-2.0); Blood Gas Allen Test Pos; Blood Gas Sample Type Arterial; Carboxyhemoglobin 1.3 %THgb (0.4-20.1); HCO3 ABG 24.5 mmol/L (22-26); HGB O2 Sat 96.8 % (95-100); Ionized Calcium Level - ABG 1.2 mmol/L (1.1-1.4); Methemoglobin 0.7 % (0.4-1.5); Oxygen Saturation ABG 98.8; PO2 ABG 86.4 mmHg (80.0-100.0); Potassium Level - ABG 4.1 mmol/L (3.5-5.0)
[2022-06-13 04:37] LABS: Blood Gas Operator Identificat ED; Blood Gas Sample Site Radial, left; Oxygen Device ROOM AIR
[2022-06-13 05:03] LABS: Glucose Point of Care 117 mg/dL (70-110)
[2022-06-13 06:13] LABS: Glucose Point of Care 148 mg/dL (70-110)
[2022-06-13 06:47] LABS: Blood Urea Nitrogen 20 mg/dL (6-20); Calcium 9.1 mg/dL (8.5-10.5); Carbon Dioxide 22 mmol/L (22-29); Chloride 98 mmol/L (98-107); Creatinine Clr Calc Pharmacy 134.5477; Glomerular Filtration Rate 137.4 mL/min (90-130); Glucose 141 mg/dL (65-115); Osmolality Calculated 279 mOsm/kg (285-295); Sodium 132 mmol/L (136-145)
[2022-06-13 06:53] LABS: Anion Gap 16.3 (5-19); Potassium 4.3 mmol/L (3.5-5.1)
--- NOTE | 2022-06-13 08:48 | PC.NURSE ---
Dr. Godinez gave t.o. for Med sliding scale insulin
[2022-06-13 08:55] LABS: Glucose Point of Care 148 mg/dL (70-110)
[2022-06-13] MEDS: insulin lispro 100 unit/1 mL SUBCUT ×4 (09:06→21:05)
[2022-06-13] MEDS: amlodipine 5 mg Tablet PO (10:08)
[2022-06-13] MEDS: sodium chloride 0.9% 1,000 ML 75 ML IV ×2 (10:09→22:28)
--- NOTE | 2022-06-13 10:12 | PC.NURSE ---
Dr. Godinez at bedside, gave v.o for NS 75 ml/hr, 1x dose amlodipine 5mg for HTN
--- NOTE | 2022-06-13 10:41 | P.PN_ITS ---
Subjective Subjective: Patient was seen and examined this morning, anion gap has closed, he has been transitioned to long and short acting insulin, tolerating diet well. Blood pressure has been on higher side: Received 1 dose of amlodipine 5 mg daily, overnight. Received IV hydralazine also. Will monitor blood pressure for now Medications: Medication Review Details: Generic Name Dose Route Start Last Admin Trade Name Freq PRN Reason Stop Dose Admin Acetaminophen 650 mg 06/12/22 17:28 06/13/22 02:50 Acetaminophen 32 5 Mg Tablet PO 650 mg Q6H PRN Administration Mild/Mod Pain Or Temp >/= 101 Enoxaparin Sodium 40 mg 06/12/22 17:30 06/12/22 17:58 Enoxaparin 40 Mg /0.4 Ml Syringe SUBCUT 40 mg Q24H JAMES Administration Insulin Human Regu lar 250 unit 252.5 mls @ 0 mls /hr 06/12/22 16:30 06/13/22 03:12 / Sodium Chlorid e IV 0 unit/hr .Q0M JAMES 0 mls/hr Titration Protocol Per Protocol Sodium Chloride 1,000 mls @ 75 ml s/hr 06/13/22 09:45 06/13/22 10:09 Sodium Chloride 0.9% IV 75 mls/hr .[id number] JAMES Administration Insulin Human Lisp ro 0 unit 06/13/22 09:00 06/13/22 09:06 Insulin Lispro 1 00 Unit/1 Ml SUBCUT 4 unit TIDWM JAMES Administration Protocol Ondansetron HCl 4 mg 06/12/22 17:28 06/12/22 18:44 Ondansetron 2 Mg /Ml Sdv 2 Ml IVP 4 mg Q8H PRN Administration vomiting, or N/V if npo Vitals/I&O/Wt Last Vital Signs Temp 98.9 F 06/13/22 06:22 Pulse 114 H 06/13/22 09:00 Resp 13 06/13/22 09:00 BP 144/90 06/13/22 09:00 Pulse Ox 99 06/13/22 08:00 O2 Del Method 06/13/22 08:00 06/12/22 06/13/22 06/13/22 22:59 06:59 14:59 Intake Total 1245.267 / 1245.267 787.293 / 2032.560 300 / 300 Output Total 1200 / 1200 800 / 2000 600 / 600 Balance 45.267 / 45.267 -12.707 / 32.560 -300 / -300 Weight last 48 hrs Weight 58.967 kg Physical Exam Resp: COMMON NORMALS: clear to auscultation bilaterally AUSCULTATION: clear to auscultation bilaterally Cardio: COMMON NORMALS: regular rate, regular rhythm, S1 normal heart sound present, S2 normal heart sound present, No gallops present (Cardio), No murmurs present (Cardio), No rub (Cardio) and Peripheral pulses 2+ throughout RATE: regular rate RHYTHM: regular rhythm HEART SOUNDS: S1 normal heart sound present and S2 normal heart sound present PERIPHERAL PULSES: Peripheral pulses 2+ throughout GI: COMMON NORMALS: Normal to inspection, nondistended, normoactive bowel sounds present, Soft to palpation, non-tender, No hepatosplenomegaly present and no masses AUSCULTATION: Yes normoactive bowel sounds PALPATION: Yes Soft to palpation and Yes No hepatosplenomegaly present RECTAL EXAM: Yes deferred Extremity: COMMON NORMALS: no clubbing, cyanosis or edema and no pedal edema Data : 06/13/22 02:06 06/13/22 06:10 Micro: Microbiology 06/12/22 16:52 Blood Culture - Preliminary Blood SPECIMEN COLLECTED 06/12/22 16:46 Blood Culture - Preliminary Blood SPECIMEN COLLECTED A&P Assessment and plan (1) High anion gap metabolic acidosis: Status: Acute (2) DKA (diabetic ketoacidosis): Status: Acute (3) Tachycardia: Status: Acute (4) Leukocytosis: Status: Acute (5) Pseudohyponatremia: Status: Acute (6) Hyperkalemia: Status: Acute Plan 27 y o male with PMH of DM1 on insulin pump at home was admitted with c/o nausea, vomitting, patient has history of insulin noncompliance, he was not taking insulin 4 days. Assessment: DKA Increased anion gap metabolic acidosis Prerenal MICHAEL on CKD secondary to dehydration secondary to DKA Pseudohyponatremia Hyperkalemia Transaminitis Leukocytosis Plan: Currently is on DKA protocol Monitor BMP every 4 hours, fingerstick glucose every hour, Continue IV hydration with normal saline at 150 cc an hour Monitor intake output charting Follow blood culture Urine culture Will stay away from antibiotics, elevated WBC count is likely secondary to severe dehydration Monitor ABG Continue telemetry monitoring We will avoid any bicarb push for now, as with correction of metabolic acidosis with insulin infusion and IV fluids, serum bicarb will improve. DVT prophylaxis; on Lovenox CODE STATUS: Full code Attestations Medical Necessity Statement*: In Hospital for management of uncontrolled diabetes DKA uncontrolled blood pressure. Coding Level of Care Code Acute Enterprise Architect Manager for Chg Fwd Exam Expanded Problem Focused Diagnoses High anion gap metabolic acidosis E87.2 DKA (diabetic ketoacidosis) E11.10 Tachycardia R00.0 Leukocytosis D72.829 Pseudohyponatremia R79.89 Hyperkalemia E87.5
[2022-06-13 11:33] LABS: Glucose Point of Care 219 mg/dL (70-110)
--- NOTE | 2022-06-13 14:20 | PC.NURSE ---
Pt BP 159/96 and HR 128. Contacted via [facility] Dr. Godinez and he said to continue fluids he has high rest hr at baseline or he has an underlying condition appropriate sinus tachycardia.
[2022-06-13] MEDS: enoxaparin 40 mg/0.4 mL Syringe SUBCUT (17:09)
[2022-06-13 17:11] LABS: Glucose Point of Care 301 mg/dL (70-110)
--- NOTE | 2022-06-13 19:04 | PC.NURSE ---
Bedside report given to martha salas at this time
--- NOTE | 2022-06-13 19:20 | PC.NURSE ---
report Maggie gave report to Sandhya.
[2022-06-13 20:39] LABS: Glucose Point of Care 261 mg/dL (70-110)
[2022-06-13] MEDS: insulin glargine 100 units/1 mL 20 UNIT SUBCUT (21:05)
[2022-06-14] VITALS: BP 158/62; PULSE 104; RESP 18; TEMP 36.7; O2SAT 96
[2022-06-14 04:00] VITALS: BP 94/67; PULSE 96; RESP 18; TEMP 36.1; O2SAT 91
[2022-06-14 04:57] LABS: Basophils % 0.2 %; Eosinophils % 0.1 %; Hematocrit 39.7 % (42.0-52.0); Hemoglobin 13.2 g/dL (11.7-16.6); Lymphocytes % 16.6 %; Mean Corpuscular HGB Conc 33.2 g/dL (30.0-36.0); Mean Corpuscular Hemoglobin 30.6 pg (28.0-34.0); Mean Corpuscular Volume 91.9 fl (80-94); Mean Platelet Volume 10.4 fL (7.4-10.4); Monocytes # 0.9 10^3/uL (0.2-0.9); Monocytes % 7.3 %; Neutrophils # 9.14 10^3/uL (1.8-7.7); Neutrophils % 75.5 %; Nucleated Red Blood Cells % 0 %; Platelet Count 208 10^3/cmm (130-400); Red Blood Count 4.32 10^6/uL (4.1-5.3); Red Cell Distribution Width 13.4 % (12.1-15.1); White Blood Count 12.1 10^3/uL (4.0-10.0)
[2022-06-14 05:33] LABS: Alanine Aminotransferase 39 U/L (0-41); Albumin Level 3.2 g/dL (3.5-5.2); Alkaline Phosphatase 115 U/L (40-130); Aspartate Amino Transferase 19 U/L (0-40); Blood Urea Nitrogen 11 mg/dL (6-20); Calcium 8.6 mg/dL (8.5-10.5); Carbon Dioxide 27 mmol/L (22-29); Chloride 94 mmol/L (98-107); Globulin 1.8 g/dL (1.3-4.6); Glomerular Filtration Rate 202.6 mL/min (90-130); Glucose 251 mg/dL (65-115); Osmolality Calculated 276 mOsm/kg (285-295); Sodium 129 mmol/L (136-145); Total Bilirubin 0.4 mg/dL (0.15-1.2)
[2022-06-14 06:00] VITALS: PULSE 95
[2022-06-14 06:04] LABS: Anion Gap 11.9 (5-19); Potassium 3.9 mmol/L (3.5-5.1)
[2022-06-14 06:15] LABS: Glucose Point of Care 233 mg/dL (70-110)
--- NOTE | 2022-06-14 06:57 | PC.NURSE ---
Bedside report taken from martha salas
[2022-06-14 07:44] VITALS: BP 146/96; PULSE 96; RESP 15; TEMP 36.8; O2SAT 95
[2022-06-14] MEDS: insulin lispro 100 unit/1 mL SUBCUT (08:13)
--- NOTE | 2022-06-14 09:54 | PC.NURSE ---
Patient resting in quietly with even chest rise. Pt had no complaints of pain at this time.
--- NOTE | 2022-06-14 10:06 | PM.DCS ---
Discharge Providers Date of Admission: 06/12/22 17:56 Date of Discharge: June 14, 2022 Attending Provider at Admission: Aden Godinez MD Attending Provider at Discharge: Aden Godinez MD Primary Care Provider: Peace Brothers MD Diagnoses at Discharge Discharge Diagnosis (1) High anion gap metabolic acidosis: Status: Acute (2) DKA (diabetic ketoacidosis): Status: Acute (3) Tachycardia: Status: Acute (4) Leukocytosis: Status: Acute (5) Pseudohyponatremia: Status: Acute (6) Hyperkalemia: Status: Acute Reason for Visit Reason for Visit: HYPERGLYCEMIA/ AMS Hospital Course Hospital Course Jean Miller is 27 y o male with PMH of DM1 on insulin pump at home was admitted with c/o nausea, vomitting, patient has history of insulin noncompliance, he was not taking insulin 4 days. Upon arrival in the ER he was found to be in severe DKA along with, MICHAEL leukocytosis hyperkalemia, pseudohyponatremia, increased anion gap severe metabolic acidosis, patient was kept on DKA protocol. To which she responded well, once the anion gap closed, he was transitioned to long and short acting insulin. He was tolerating diet well, blood cultures were negative at the time of discharge. Overall he responded well to above medical management and was discharged in stable condition to home. He has been advised to be compliant with his insulin regimen. Physical Exam Resp: COMMON NORMALS: clear to auscultation bilaterally AUSCULTATION: clear to auscultation bilaterally Cardio: COMMON NORMALS: regular rate, regular rhythm, S1 normal heart sound present, S2 normal heart sound present, No gallops present (Cardio), No murmurs present (Cardio), No rub (Cardio) and Peripheral pulses 2+ throughout RATE: regular rate RHYTHM: regular rhythm HEART SOUNDS: S1 normal heart sound present and S2 normal heart sound present PERIPHERAL PULSES: Peripheral pulses 2+ throughout GI: COMMON NORMALS: Normal to inspection, nondistended, normoactive bowel sounds present, Soft to palpation, non-tender, No hepatosplenomegaly present and no masses AUSCULTATION: Yes normoactive bowel sounds PALPATION: Yes Soft to palpation and Yes No hepatosplenomegaly present RECTAL EXAM: Yes deferred Extremity: COMMON NORMALS: no clubbing, cyanosis or edema and no pedal edema Discharge Data Studies Completed and Pending Completed Studies During Hospitalization Category Date Time Status XR chest 1V portable [id number] Stat Exams 06/12/22 16:17 Completed Pending at discharge Category Date Time Status Blood Culture Stat Lab 06/12/22 16:52 Results Complete Blood Count w/Auto AM LABS Lab 06/15/22 04:00 Ordered Comprehensive Metabolic Panel AM LABS Lab 06/15/22 04:00 Ordered Radiology Impressions Chest X-Ray 06/12/22 16:17 IMPRESSION: Negative chest radiograph. Laboratory Results WBC 12.1 10^3/uL (4.0-10.0) H 06/14/22 04:48 RBC 4.32 10^6/uL (4.1-5.3) 06/14/22 04:48 Hgb 13.2 g/dL (11.7-16.6) 06/14/22 04:48 Hct 39.7 % (42.0-52.0) L 06/14/22 04:48 MCV 91.9 fl (80-94) D 06/14/22 04:48 MCH 30.6 pg (28.0-34.0) 06/14/22 04:48 MCHC 33.2 g/dL (30.0-36.0) D 06/14/22 04:48 RDW 13.4 % (12.1-15.1) 06/14/22 04:48 Plt Count 208 10^3/cmm (130-400) 06/14/22 04:48 MPV 10.4 fL (7.4-10.4) 06/14/22 04:48 Neut % (Auto) 75.5 % 06/14/22 04:48 Lymph % (Auto) 16.6 % 06/14/22 04:48 [place] % (Auto) 7.3 % 06/14/22 04:48 Eos % (Auto) 0.1 % 06/14/22 04:48 Baso % (Auto) 0.2 % 06/14/22 04:48 Neut # (Auto) 9.14 10^3/uL (1.8-7.7) H 06/14/22 04:48 Lymph # (Auto) 2.0 10^3/uL (0.8-4.8) 06/14/22 04:48 [place] # (Auto) 0.9 10^3/uL (0.2-0.9) 06/14/22 04:48 Eos # (Auto) 0.0 10^3/uL (0.0-0.8) 06/14/22 04:48 Baso # (Auto) 0.0 10^3/uL (0.0-0.1) 06/14/22 04:48 Nucleated RBC % (auto) 0 % 06/14/22 04:48 Nucleated RBCs # 0.0 /100WBC 06/14/22 04:48 Specimen Type Arterial 06/13/22 04:26 Sample Site Radial, left 06/13/22 04:26 ABG pH 7.46 (7.35-7.45) H 06/13/22 04:26 ABG pCO2 34.2 mmHg (35-45) L 06/13/22 04:26 ABG pO2 86.4 mmHg (80.0-100.0) 06/13/22 04:26 ABG HCO3 24.5 mmol/L (22-26) 06/13/22 04:26 ABG O2 Saturation 98.8 06/13/22 04:26 ABG Base Excess 1.2 mmol/L (-2.0-2.0) 06/13/22 04:26 Bereket Test Pos 06/13/22 04:26 A-a O2 Gradient 2.6 mmHg (5-10) L 06/13/22 04:26 Hematocrit 45.8 % (42-52) 06/13/22 04:26 Hgb O2 Saturation 96.8 % (95-100) 06/13/22 04:26 Carboxyhemoglobin 1.3 %THgb (0.4-20.1) 06/13/22 04:26 Methemoglobin 0.7 % (0.4-1.5) 06/13/22 04:26 Total Hemoglobin 15.0 g/dL (14-18) 06/13/22 04:26 Sodium 135.0 mmol/L (131-143) 06/13/22 04:26 Potassium 4.1 mmol/L (3.5-5.0) 06/13/22 04:26 Glucose 114.0 mg/dL (70-115) 06/13/22 04:26 Ionized Calcium 1.2 mmol/L (1.1-1.4) 06/13/22 04:26 O2 Delivery Device Room air 06/13/22 04:26 FiO2 21.0 % 06/13/22 04:26 Double Needle Operator Lockstitch ID Ed 06/13/22 04:26 Sodium 129 mmol/L (136-145) L 06/14/22 04:48 Potassium 3.9 mmol/L (3.5-5.1) 06/14/22 04:48 Chloride 94 mmol/L (98-107) L 06/14/22 04:48 Carbon Dioxide 27 mmol/L (22-29) 06/14/22 04:48 Anion Gap 11.9 (5-19) 06/14/22 04:48 BUN 11 mg/dL (6-20) 06/14/22 04:48 Creatinine 0.5 mg/dL (0.7-1.2) L 06/14/22 04:48 GFR Calculation 202.6 mL/min (90-130) H 06/14/22 04:48 Glucose 251 mg/dL (65-115) H 06/14/22 04:48 POC Glucose 233 mg/dL (70-110) H 06/14/22 06:01 Calculated Osmolality 276 mOsm/kg (285-295) L 06/14/22 04:48 Lactic Acid 1.5 mmol/L (0.5-2.2) 06/13/22 02:06 Calcium 8.6 mg/dL (8.5-10.5) 06/14/22 04:48 Phosphorus 3.6 mg/dL (2.5-4.5) 06/13/22 02:06 Magnesium 1.8 mg/dL (1.7-2.3) 06/13/22 02:06 Total Bilirubin 0.4 mg/dL (0.15-1.2) 06/14/22 04:48 AST 19 U/L (0-40) 06/14/22 04:48 ALT 39 U/L (0-41) 06/14/22 04:48 Alkaline Phosphatase 115 U/L (40-130) 06/14/22 04:48 Creatine Kinase 52 U/L (39-308) 06/12/22 15:50 Total Protein 5.0 g/dL (6.6-8.7) L 06/14/22 04:48 Albumin 3.2 g/dL (3.5-5.2) L 06/14/22 04:48 Globulin 1.8 g/dL (1.3-4.6) 06/14/22 04:48 Procalcitonin 1.92 ng/mL (0-0.5) H 06/13/22 02:06 Urine Color Colorless (Yellow) 06/12/22 18:30 Urine Appearance Clear (CLEAR) 06/12/22 18:30 Urine pH 5 (5-7) 06/12/22 18:30 Ur Specific [place] 1.020 (1.005-1.030) 06/12/22 18:30 Urine Protein Neg (Negative) 06/12/22 18:30 Urine Glucose (UA) 4+ (Normal) H 06/12/22 18:30 Urine Ketones 2+ (Negative) H 06/12/22 18:30 Urine Blood 2+ (Negative) H 06/12/22 18:30 Urine Nitrate Negative (Negative) 06/12/22 18:30 Urine Bilirubin Neg (Negative) 06/12/22 18:30 Urine Urobilinogen Norm mg/dL (Negative) 06/12/22 18:30 Ur Leukocyte Esterase Negative (Negative) 06/12/22 18:30 Urine RBC 0-4 /hpf (0-2) H 06/12/22 18:30 Urine WBC 0-4 /hpf (0-5) H 06/12/22 18:30 Ur Squamous Epith Cells 0-4 /hpf (0-5) H 06/12/22 18:30 Amorphous Sediment Not Reportable 06/12/22 18:30 Urine Bacteria None /hpf (NONE) 06/12/22 18:30 Hyaline Casts 0-4 /lpf H 06/12/22 18:30 Serum Ketones Positive (Negative) H 06/12/22 15:50 Vitals Last Vital Signs Temp 98.3 F 06/14/22 07:44 Pulse 96 06/14/22 07:44 Resp 15 06/14/22 07:44 BP 146/96 06/14/22 07:44 Pulse Ox 95 06/14/22 07:44 O2 Del Method 06/14/22 07:44 Discharge Plan Discharge Patient Disposition: Home Condition: Stable Prescriptions: Continued (DME) blood-glucose meter [InSupplyuch Ultra2 Meter] Kit See Rx Instructions .Route Qty: 1 0RF Rx Instructions: To use TID to check blood sugar levels before taking insulin (DME) blood sugar diagnostic Strip See Rx Instructions .Route Qty: 300 3RF Rx Instructions: To use TID in onetouch meter to check blood sugar, 90 day supply Novolin R Flexpen 100 unit/mL (3 mL) insulin pen See Rx Instructions .ROUTE .COMPLEX Rx Instructions: subcutaneously per sliding scale Levemir FlexTouch U-100 Insuln 100 unit/mL (3 mL) insulin pen 20 unit SUBCUT QPM Discharge Orders: Discharge Order (Routine); Ordered 06/14/22 Ordered By: Aden Godinez Referrals: Peace Brothers MD [Primary Care Provider] - 06/20/22 11:30 am (APPOINTMENT AT [facility] [phone]) Discharge Diet: Diabetic Patient Instructions: Opioid Safety Discharge Attestations Time Spent in Discharge Care*: less than 30 min Status at Discharge: Cognitive status at discharge: cognitively intact, Behavioral status at discharge: cooperative, Quality Metrics Clinical Quality Measures [ No reported AMI, CVA or VTE this stay] Coding Level of Care Code Acute Chg FW DC note Diagnoses High anion gap metabolic acidosis E87.2 DKA (diabetic ketoacidosis) E11.10 Tachycardia R00.0 Leukocytosis D72.829 Pseudohyponatremia R79.89 Hyperkalemia E87.5
[2022-06-14 10:56] VITALS: BP 146/96; PULSE 96; RESP 15; TEMP 36.8; O2SAT 95
--- NOTE | 2022-06-14 10:56 | PC.NURSE ---
Patient a&o x3 with even chest rise and no apparent distress. Educated the patient and patient family member about diabetes and stressed the importance of compliance and insulin. Patient verbalized understanding.
== END 2022-06-14 10:58 | disposition home or self-care (01) | DRG 638 ==
LOC: ER 16:49 → ICU 17:51 → MEDSURG 06-13 13:16
PROVIDERS: Admitting Provider Internal Medicine; Emergency Provider Family Medicine; PCP Family Medicine; Visit Provider Internal Medicine
DX: E10.10 Type 1 diabetes mellitus with ketoacidosis without coma (principal); N17.9 Acute kidney failure, unspecified; T38.3X6A Underdosing of insulin and oral hypoglycemic [antidiabetic] drugs, initial encounter; E87.5 Hyperkalemia; E10.22 Type 1 diabetes mellitus with diabetic chronic kidney disease; N18.9 Chronic kidney disease, unspecified; E86.0 Dehydration; F17.210 Nicotine dependence, cigarettes, uncomplicated; R74.01 Elevation of levels of liver transaminase levels; R03.0 Elevated blood-pressure reading, without diagnosis of hypertension; Z79.4 Long term (current) use of insulin; Z96.41 Presence of insulin pump (external) (internal)
CPT/HCPCS: 36415; 36416; 36600; 71045; 80048; 80051; 80053; 81001; 82009; 82330; 82550; 82805; 82962; 83605; 83735; 84100; 84145; 85025; 87040; 96365; 96372; 96375; 99285; J0360; J1650; J1815; J2405; J2550; J3480; J7030; J7050

== ENCOUNTER 2022-07-18 14:57 | Inpatient (IN) | payer MEDICAID, SELFPAY ==
[2022-07-18] VITALS (12 sets, daily range): BP systolic 121–154; BP diastolic 84–105; PULSE 121–132; RESP 14–28; TEMP 36.2–36.8; O2SAT 95–99; BMI 19.8
[2022-07-18 15:10] LABS: Glucose Point of Care > 600 mg/dL (70-110)
--- NOTE | 2022-07-18 15:10 | ECG_ITS ---
[facility] Test Date: 2022-07-18 Pat Name: Jean Miller Department: Room: Gender: Male Clinical Tech: : 1995 Requested By: Collette Nash Order Number: [id number] Remy MD: Bishnu Dennis M.D. Measurements Intervals [place] Rate: 124 P: 79 [place]: 162 QRS: 60 QRSD: 78 T: 72 QT: 293 QTc: 422 Interpretive Statements SINUS TACHYCARDIA Possible right atrial enlargement ABNORMAL RHYTHM ECG Compared to ECG 05/11/2022 14:44:25 Sinus rhythm no longer present T-wave abnormality no longer present Electronically Signed On 07-18-2022 20:55:05 CDT by Bishnu Dennis M.D. [email or web address]
--- NOTE | 2022-07-18 15:11 | XRR_ITS ---
PROCEDURE INFORMATION: Exam: XR Chest Exam date and time: 07/18/2022 3:17 PM Age: 27 years old Clinical indication: Cough and shortness of breath TECHNIQUE: Imaging protocol: Radiologic exam of the chest. Views: 1 view. COMPARISON: CR (CHEST, ) 06/12/2022 4:58 PM FINDINGS: Lungs: Unremarkable. No consolidation. Pleural spaces: Unremarkable. No pleural effusion. No pneumothorax. Heart/Mediastinum: Unremarkable. No cardiomegaly. Bones/joints: Unremarkable. XR/XR chest 1V portable [id number] IMPRESSION: No acute findings.
--- NOTE | 2022-07-18 15:13 | ED_ITS ---
HPI - General Adult General: Chief complaint: General Medical Stated complaint: HYPERGLYCEMIA Time Seen by Provider: 07/18/22 15:00 History of Present Illness: 27 year old brittle diabetic with recurrent admissions for DKA and poor glycemic control presents via EMS with elevated blood sugar and vomiting similar to prior episodes of DKA. He states he is taking insulin as directed. Accu-check simply reads high Associated symptoms: Reports diaphoresis, dyspnea, malaise, nausea and vomiting; Deny chest pain, headache(s), rash or palpitations Review of Systems Const: Reports: fatigue, malaise and diaphoresis; Denies: fever(s) or chills Eyes: Denies: change in vision or blurry vision ENMT: Reports: dry mouth and other (poor dentition); Denies: throat pain Card: Denies: chest pain, palpitations, lightheadedness or orthopnea Resp: Reports: dyspnea; Denies: productive cough, non-productive cough or pain on inspiration GI: Reports: abdominal pain, nausea and vomiting; Denies: coffee ground emesis or heartburn : Denies: flank pain or difficulty urinating Musc: Denies: neck pain, extremity pain, extremity swelling, joint warmth, limited range of motion or muscle cramps Skin/Breast: Denies: rash, erythema or changes in skin color Neuro: Denies: headache(s), numbness in extremities, weakness in extremities, lack of coordination, dizziness, behavioral changes or Slurred speech present Psych: Denies: anxiety or depression Endo: Reports: other (symptoms associated with hyperglycemia) Basim/Lymph: Denies: easy bruising All/Imm: Denies: urticaria, tongue swelling or acute wheezing PFSH ED PFSH: Medical History MICHAEL (acute kidney injury) Diabetes type 1, uncontrolled History of DKA DKA (diabetic ketoacidosis) High anion gap metabolic acidosis Hyperkalemia Hyperkalemia Lactic acidosis Leukocytosis Leukocytosis Long-term insulin use Metabolic acidosis Pseudohyponatremia Psychiatric care Tachycardia Transaminitis Surgical History No history of previous surgery none known Family History Other Family history unknown Social History Smoking and tobacco status: current every day smoker cigarettes Packs smoked per day: 1 Alcohol intake: former Current occupational status: employed Physical Exam Const: COMMON NORMALS: patient oriented x3 GENERAL APPEARANCE: cooperative, ill appearing and appears older than stated age HENMT: COMMON NORMALS: normocephalic, atraumatic and Normal external nose present HEAD & SCALP: normocephalic and atraumatic NOSE: Normal external nose present MOUTH: malodorous breath and other (poor dentition) Eye: COMMON NORMALS: Equal, round and reactive pupils present, EOMs intact bilaterally and conjunctivae normal CONJUNCTIVA: Yes conjunctivae normal PUPIL: Yes Equal, round and reactive pupils present Neck/C-Spine: COMMON NORMALS: full ROM Chest: COMMONS NORMALS: normal inspection of the chest and normal palpation of entire chest wall Resp: COMMON NORMALS: normal respiratory effort, No retractions, No use of accessory muscles and clear to auscultation bilaterally AUSCULTATION: clear to auscultation bilaterally Cardio: COMMON NORMALS: regular rate (tachycardic) RATE: regular rate (tachycardic) GI: COMMON NORMALS: Normal to inspection, nondistended, normoactive bowel sounds present : BLADDER/KIDNEY EXAM: No CVA tenderness Back/Pelvis: GENERAL BACK: No CVA tenderness and No ecchymosis Extremity: COMMON NORMALS: full ROM Neuro: COMMON NORMALS: patient oriented x3, CN's II-XII intact bilaterally and moves all extremities Skin: COMMON NORMALS: no wounds Course ED course: Initial chemistry confirms DKA, spoke with Dr Mosley who agrees to admit to ICU will provide ample NS bolus and place on insulin drip. Vital Signs: Vital signs: Vital Signs Temperature 97.2 F L 07/18/22 15:10 Pulse Rate 125 H 07/18/22 15:10 Respiratory Rate 28 H 07/18/22 15:10 Blood Pressure 154/100 07/18/22 15:10 Pulse Oximetry 98 07/18/22 15:10 Oxygen Delivery Me thod 07/18/22 15:10 MDM - General Adult Medical Decision Making Patient in DKA, admit to icu Differential Diagnosis dka Lab Data : 07/18/22 15:05 07/18/22 15:05 Laboratory Results WBC 20.7 10^3/uL (4.0-10.0) H 07/18/22 15:05 RBC 5.89 10^6/uL (4.1-5.3) H 07/18/22 15:05 Hgb 17.8 g/dL (11.7-16.6) H 07/18/22 15:05 Hct 55.1 % (42.0-52.0) H 07/18/22 15:05 MCV 93.5 fl (80-94) 07/18/22 15:05 MCH 30.2 pg (28.0-34.0) 07/18/22 15:05 MCHC 32.3 g/dL (30.0-36.0) 07/18/22 15:05 RDW 12.7 % (12.1-15.1) 07/18/22 15:05 Plt Count 447 10^3/cmm (130-400) H 07/18/22 15:05 MPV 11.5 fL (7.4-10.4) H 07/18/22 15:05 Neut % (Auto) 87.3 % 07/18/22 15:05 Lymph % (Auto) 7.7 % 07/18/22 15:05 [place] % (Auto) 2.2 % 07/18/22 15:05 Eos % (Auto) 0.0 % 07/18/22 15:05 Baso % (Auto) 0.6 % 07/18/22 15:05 Neut # (Auto) 18.10 10^3/uL (1.8-7.7) H 07/18/22 15:05 Lymph # (Auto) 1.6 10^3/uL (0.8-4.8) 07/18/22 15:05 [place] # (Auto) 0.5 10^3/uL (0.2-0.9) 07/18/22 15:05 Eos # (Auto) 0.0 10^3/uL (0.0-0.8) 07/18/22 15:05 Baso # (Auto) 0.1 10^3/uL (0.0-0.1) 07/18/22 15:05 Nucleated RBC % (auto) 0 % 07/18/22 15:05 Nucleated RBCs # 0.0 /100WBC 07/18/22 15:05 Sodium 124 mmol/L (136-145) L 07/18/22 15:05 Potassium 6.3 mmol/L (3.5-5.1) H 07/18/22 15:05 Chloride 77 mmol/L (98-107) L 07/18/22 15:05 Carbon Dioxide 6 mmol/L (22-29) L* 07/18/22 15:05 Anion Gap 47.3 (5-19) H 07/18/22 15:05 BUN 29 mg/dL (6-20) H 07/18/22 15:05 Creatinine 1.5 mg/dL (0.7-1.2) H 07/18/22 15:05 GFR Calculation 57.0 mL/min (90-130) L 07/18/22 15:05 Glucose 895 mg/dL (65-115) H* 07/18/22 15:05 POC Glucose > 600 mg/dL (70-110) H* 07/18/22 15:06 Estimat Average Glucose 278 07/18/22 15:05 Hemoglobin A1c 11.3 % (4.0-6.0) H 07/18/22 15:05 Calculated Osmolality Not Reportable 07/18/22 15:05 Calcium 10.1 mg/dL (8.5-10.5) 07/18/22 15:05 Magnesium 2.5 mg/dL (1.7-2.3) H 07/18/22 15:05 Total Bilirubin 0.5 mg/dL (0.15-1.2) 07/18/22 15:05 AST 15 U/L (0-40) 07/18/22 15:05 ALT 35 U/L (0-41) 07/18/22 15:05 Alkaline Phosphatase 163 U/L (40-130) H 07/18/22 15:05 Total Protein 7.2 g/dL (6.6-8.7) 07/18/22 15:05 Albumin 4.5 g/dL (3.5-5.2) 07/18/22 15:05 Globulin 2.7 g/dL (1.3-4.6) 07/18/22 15:05 Urine Color Straw (Yellow) 07/18/22 15:20 Urine Appearance Clear (CLEAR) 07/18/22 15:20 Urine pH 5 (5-7) 07/18/22 15:20 Ur Specific [place] 1.020 (1.005-1.030) 07/18/22 15:20 Urine Protein Neg (Negative) 07/18/22 15:20 Urine Glucose (UA) 4+ (Normal) H 07/18/22 15:20 Urine Ketones 3+ (Negative) H 07/18/22 15:20 Urine Blood Neg (Negative) 07/18/22 15:20 Urine Nitrate Negative (Negative) 07/18/22 15:20 Urine Bilirubin Neg (Negative) 07/18/22 15:20 Urine Urobilinogen Norm mg/dL (Negative) 07/18/22 15:20 Ur Leukocyte Esterase Negative (Negative) 07/18/22 15:20 Urine Opiates Screen Negative ng/mL (Negative) 07/18/22 15:20 Ur Barbiturates Screen Negative ng/mL (Negative) 07/18/22 15:20 Ur Phencyclidine Scrn Negative ng/mL (Negative) 07/18/22 15:20 Ur Amphetamines Screen Negative ng/mL (Negative) 07/18/22 15:20 U Benzodiazepines Scrn Negative ng/mL (Negative) 07/18/22 15:20 Urine Cocaine Screen Negative ng/mL (Negative) 07/18/22 15:20 U Marijuana (THC) Screen Negative ng/mL (Negative) 07/18/22 15:20 Discharge Plan Discharge Patient Disposition: Admitted As Inpatient Clinical Impression: DKA (diabetic ketoacidosis) Condition: Fair Coding Level of Care Code ED Burglar Alarm Mechanic for Jazmín Fwd Exam Comprehensive Medical Decision Making Moderate Complexity
[2022-07-18] MEDS: sodium chloride 0.9% 1,000 ML 999 ML IV ×2 (15:15→17:08)
[2022-07-18 15:19] LABS: Basophils # 0.1 10^3/uL (0.0-0.1); Basophils % 0.6 %; Hematocrit 55.1 % (42.0-52.0); Hemoglobin 17.8 g/dL (11.7-16.6); Lymphocytes # 1.6 10^3/uL (0.8-4.8); Lymphocytes % 7.7 %; Mean Corpuscular HGB Conc 32.3 g/dL (30.0-36.0); Mean Corpuscular Hemoglobin 30.2 pg (28.0-34.0); Mean Corpuscular Volume 93.5 fl (80-94); Mean Platelet Volume 11.5 fL (7.4-10.4); Monocytes # 0.5 10^3/uL (0.2-0.9); Monocytes % 2.2 %; Neutrophils % 87.3 %; Nucleated Red Blood Cells % 0 %; Platelet Count 447 10^3/cmm (130-400); Red Blood Count 5.89 10^6/uL (4.1-5.3); Red Cell Distribution Width 12.7 % (12.1-15.1); White Blood Count 20.7 10^3/uL (4.0-10.0)
[2022-07-18 15:22] LABS: Add Urine Microscopic? NO; Charge for UA Resulting for Rev
[2022-07-18 15:24] LABS: Bilirubin Urine Neg (Negative); Blood Urine Neg (Negative); Glucose Urine UA 4+ (Normal); Ketones Urine 3+ (Negative); Leukocyte Esterase Urine Negative (Negative); Nitrate Urine Negative (Negative); Protein Urine Neg (Negative); Urine Appearance Clear (CLEAR); Urine Color Straw (Yellow); Urobilinogen Urine Norm (Negative); pH Urine 5 (5-7)
[2022-07-18 15:31] LABS: Alanine Aminotransferase 35 U/L (0-41); Albumin Level 4.5 g/dL (3.5-5.2); Aspartate Amino Transferase 15 U/L (0-40); Calcium 10.1 mg/dL (8.5-10.5); Globulin 2.7 g/dL (1.3-4.6); Total Bilirubin 0.5 mg/dL (0.15-1.2); Total Protein 7.2 g/dL (6.6-8.7)
[2022-07-18 15:33] LABS: Amphetamines Screen Urine Negative (Negative); Barbiturates Screen Urine Negative (Negative); Benzodiazepines Screen Urine Negative (Negative); Cocaine Screen Urine Negative (Negative); Opiate Screen Urine Negative (Negative); PCP Screen Urine Negative (Negative); THC Screen Urine Negative (Negative)
[2022-07-18 15:35] LABS: Estmated Average Glucose 278; Hemoglobin A1C 11.3 % (4.0-6.0)
[2022-07-18 15:45] LABS: Anion Gap 47.3 (5-19); Blood Urea Nitrogen 29 mg/dL (6-20); Chloride 77 mmol/L (98-107); Potassium 6.3 mmol/L (3.5-5.1); Sodium 124 mmol/L (136-145)
[2022-07-18 15:47] LABS: Glucose 895 mg/dL (65-115)
[2022-07-18 15:48] LABS: Carbon Dioxide 6 mmol/L (22-29)
[2022-07-18 15:49] LABS: Alkaline Phosphatase 163 U/L (40-130); Magnesium 2.5 mg/dL (1.7-2.3)
--- NOTE | 2022-07-18 16:04 | PC.NURSE ---
Patient is sitting up in bed vomiting. He is able to answer questions appropriately. \ States that he has only been taking his long acting insulin, not his short - and he said he just isn't when I asked why he is not taking his short acting. He states that he could feel himself getting sick and called the ambulance. First bag of IV fluid started by EMS is finished. Second bag started.
[2022-07-18 16:25] LABS: Glucose Point of Care > 600 mg/dL (70-110)
--- NOTE | 2022-07-18 16:29 | PM.HP ---
Providers/Chief Complaint Primary Care Provider: Peace Brothers MD Chief Complaint: HYPERGLYCEMIA History of Present Illness Jean Miller is a 27 year old male who has history of insulin-dependent diabetes presented to the hospital for chief complaint of recurrent nausea vomiting. He missed his insulin dose just for 1 day and he went to DKA. In the ER he was diagnosed with severe DKA with severe metabolic acidosis he was started on DKA protocol with bicarb drip. No source of infection identified however his leukocytosis is around 20,000, he has remained afebrile, tachycardic and hypertensive. Drug screen was ordered. He is not requiring any oxygen. 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 Review of Systems Eyes: Denies: change in vision ENMT: Denies: throat pain Card: Denies: chest pain Resp: Denies: dyspnea GI: Reports: abdominal pain, nausea and vomiting : Denies: flank pain Musc: Denies: neck pain Skin/Breast: Denies: rash Neuro: Denies: headache(s) Psych: Reports: anxiety Endo: Denies: polyuria Basim/Lymph: Denies: easy bruising All/Imm: Denies: urticaria Medications/Allergies Home Medications Medication Instructions Recorded Confirmed Last Taken Type blood-glucose meter (OneTouch #1 ea 04/02/22 07/18/22 Unknown Rx Ultra2 Meter kit) blood sugar diagnostic #300 ea 05/12/22 07/18/22 Unknown Rx insulin detemir U-100 100 unit/mL 20 unit SUBCUT QPM 06/12/22 07/18/22 Unknown History (3 mL) subcutaneous pen (Levemir FlexTouch U-100 Insulin) insulin regular human 100 unit/mL See Rx Instructions .Route .COMPLEX 06/12/22 07/18/22 Unknown History (3 mL) subcutaneous pen (Novolin R Flexpen) Allergies Allergy/AdvReac Type Severity Reaction Status Date / Time No Known Allergies Allergy Verified 06/12/22 16:40 PFSH Acute PFSH: Medical History MICHAEL (acute kidney injury) Diabetes type 1, uncontrolled History of DKA DKA (diabetic ketoacidosis) High anion gap metabolic acidosis Hyperkalemia Hyperkalemia Lactic acidosis Leukocytosis Leukocytosis Long-term insulin use Metabolic acidosis Pseudohyponatremia Psychiatric care Tachycardia Transaminitis Surgical History No history of previous surgery none known Family History Other Family history unknown Social History Smoking and tobacco status: current every day smoker cigarettes Packs smoked per day: 1 Alcohol intake: former Current occupational status: employed Vitals/I&O/Wt Last Vital Signs Temp 97.2 F L 07/18/22 15:10 Pulse 127 H 07/18/22 16:10 Resp 24 H 07/18/22 16:10 BP 138/84 07/18/22 16:10 Pulse Ox 95 07/18/22 16:10 O2 Del Method 07/18/22 16:10 Weight last 48 hrs Weight 58.967 kg Physical Exam Narrative: Young male Looks dehydrated Malnourished Awake and alert Nonfocal neuro exam Currently on room air Pleasant cooperative No active emesis Tachycardic hypertensive Data : 07/19/22 01:50 07/19/22 05:52 A&P Assessment and plan (1) High anion gap metabolic acidosis: (2) DKA (diabetic ketoacidosis): (3) Acute hyperkalemia: (4) Pseudohyponatremia: Plan DKA secondary to missing insulin dose No source of infection identified leukocytosis most likely stress leukemoid reaction Noncompliant Hemoglobin A1c above 10 Start bicarb drip for severe acidosis Met high anion gap metabolic acidosis due to hyperglycemia, DKA N.p.o. Start normal saline He has been given 2 L bolus in the ER Full code N.p.o. BMP every 4 hours Attestations Medical Necessity Statement*: ICU admission anticipating after DKA resolves it can take a day or 2 for now I am anticipating he might take more than 48 hours Clinical course will decide his hospitalization Time Spent in Patient Care: 45 Coding Level of Care Code Acute Software Development Engineer for Chg Fwd Diagnoses High anion gap metabolic acidosis E87.2 DKA (diabetic ketoacidosis) E11.10 Acute hyperkalemia E87.5 Pseudohyponatremia R79.89
[2022-07-18] MEDS: insulin regular-human 250 UNIT in sodium chloride 0.9% 250 ML 25 UNIT IV (16:34)
[2022-07-18 17:07] LABS: Glucose Point of Care > 600 mg/dL (70-110)
--- NOTE | 2022-07-18 17:13 | PC.NURSE ---
1700 - JENNIFER Saraviabattery charger went into patient's room and noted that his insulin pump was off. He confirmed that patient's IV insulin pump was running before because it is off now. Pump was running at 25 units/hr when nurse left room at 1650 in right AC. Rani RN rechecked blood glucose and restarted pump.
[2022-07-18 17:36] LABS: Glucose Point of Care > 600 mg/dL (70-110)
[2022-07-18] MEDS: enoxaparin 40 mg/0.4 mL Syringe SUBCUT (17:49)
[2022-07-18] MEDS: sodium chloride 0.9% 1,000 ML 125 ML IV (17:49)
[2022-07-18] MEDS: sodium bicarbonate 150 MEQ in dextrose 5% 1,000 ML 100 MEQ IV (18:00)
[2022-07-18 18:40] LABS: Glucose 546 mg/dL (65-115)
[2022-07-18 19:16] LABS: Glucose Point of Care 497 mg/dL (70-110)
--- NOTE | 2022-07-18 19:43 | PC.NURSE ---
Received patient form ER staff at 1730. BP: 172/117, HR: 127, RR: 18, SPO2: 99%. Patient is oriented to person, place, time, and situation, but is lethargic. Only belongings are clothing. Upon arrival to ICU, Blood sugar was too high to be read by glucometer. Drip is currently running at 16.2 units/hr. Nurse is unable to titrate per protocol without knowing current BLood sugar. Nurse sent blood sample to lab for glucose testing and alerted Dr davies to inability to titrate per protocol at this time. Keeping drip at rate of 16.2 units/hour until results form lab come back.
[2022-07-18 20:18] LABS: Glucose Point of Care 333 mg/dL (70-110)
[2022-07-18 21:19] LABS: Anion Gap 29.4 (5-19); Blood Urea Nitrogen 24 mg/dL (6-20); Calcium 8.9 mg/dL (8.5-10.5); Carbon Dioxide 12 mmol/L (22-29); Chloride 98 mmol/L (98-107); Glucose 296 mg/dL (65-115); Osmolality Calculated 295 mOsm/kg (285-295); Phosphorus 3.4 mg/dL (2.5-4.5); Potassium 4.4 mmol/L (3.5-5.1); Sodium 135 mmol/L (136-145)
[2022-07-18 21:23] LABS: Glucose Point of Care 273 mg/dL (70-110)
[2022-07-18 22:11] LABS: Glucose Point of Care 230 mg/dL (70-110)
[2022-07-18 22:42] LABS: Adenovirus Not Detected (NOT DETECT); Chlamydia Pneumoniae Not Detected (NOT DETECT); Coronavirus 229E,HKU1,NL63,OC4 Not Detected (NOT DETECT); Human Metapneumovirus Not Detected (NOT DETECT); Human Rhinovirus/Enterovirus Not Detected (NOT DETECT); Influenza A Not Detected (NOT DETECT); Influenza A H1 Not Detected (NOT DETECT); Influenza A H1-2009 Not Detected (NOT DETECT); Influenza A H3 Not Detected (NOT DETECT); Influenza B Not Detected (NOT DETECT); Mycoplasma Pneumoniae Not Detected (NOT DETECT); Parainfluenza Virus Type 1 Not Detected (NOT DETECT); Parainfluenza Virus Type 2 Not Detected (NOT DETECT); Parainfluenza Virus Type 3 Not Detected (NOT DETECT); Parainfluenza Virus Type 4 Not Detected (NOT DETECT); Respiratory Syncytial Virus A Not Detected (NOT DETECT); Respiratory Syncytial Virus B Not Detected (NOT DETECT); SARS-COV-2 Not Detected (NOT DETECT)
[2022-07-18 23:12] LABS: Glucose Point of Care 153 mg/dL (70-110)
[2022-07-19] VITALS (15 sets, daily range): BP systolic 147–171; BP diastolic 95–114; PULSE 103–118; RESP 11–16; TEMP 36.8–36.9; O2SAT 95–98
[2022-07-19 00:22] LABS: Glucose Point of Care 108 mg/dL (70-110)
[2022-07-19 01:21] LABS: Glucose Point of Care 90 mg/dL (70-110)
[2022-07-19] MEDS: sodium chloride 0.9% 1,000 ML 125 ML IV ×2 (01:42→09:51)
[2022-07-19 01:55] LABS: Basophils # 0.1 10^3/uL (0.0-0.1); Basophils % 0.4 %; Hematocrit 42.1 % (42.0-52.0); Hemoglobin 14.1 g/dL (11.7-16.6); Lymphocytes # 3.5 10^3/uL (0.8-4.8); Lymphocytes % 17.5 %; Mean Corpuscular HGB Conc 33.5 g/dL (30.0-36.0); Mean Corpuscular Hemoglobin 30.7 pg (28.0-34.0); Mean Corpuscular Volume 91.7 fl (80-94); Mean Platelet Volume 10.3 fL (7.4-10.4); Monocytes # 1.8 10^3/uL (0.2-0.9); Monocytes % 8.7 %; Neutrophils # 14.66 10^3/uL (1.8-7.7); Neutrophils % 72.6 %; Nucleated Red Blood Cells % 0 %; Platelet Count 279 10^3/cmm (130-400); Red Blood Count 4.59 10^6/uL (4.1-5.3); White Blood Count 20.2 10^3/uL (4.0-10.0)
[2022-07-19 02:10] LABS: Anion Gap 14.8 (5-19); Blood Urea Nitrogen 20 mg/dL (6-20); Calcium 8.3 mg/dL (8.5-10.5); Carbon Dioxide 23 mmol/L (22-29); Chloride 103 mmol/L (98-107); Glomerular Filtration Rate 117.8 mL/min (90-130); Glucose 89 mg/dL (65-115); Osmolality Calculated 286 mOsm/kg (285-295); Phosphorus 3.1 mg/dL (2.5-4.5); Potassium 3.8 mmol/L (3.5-5.1); Sodium 137 mmol/L (136-145)
[2022-07-19] MEDS: insulin glargine 100 units/1 mL 20 UNIT SUBCUT (03:00)
[2022-07-19 03:10] LABS: Glucose Point of Care 80 mg/dL (70-110)
[2022-07-19 03:10] LABS: Glucose Point of Care 81 mg/dL (70-110)
[2022-07-19 04:04] LABS: Glucose Point of Care 69 mg/dL (70-110)
--- NOTE | 2022-07-19 04:22 | PC.NURSE ---
0315 Dr. Chacon contacted via VOALTE about patient's increased BP; awaiting orders at this time 0400 Dr. Chacon contacted via phone about patient's increased BP; no new orders noted at this time
[2022-07-19 05:32] LABS: Glucose Point of Care 212 mg/dL (70-110)
[2022-07-19 06:23] LABS: Blood Urea Nitrogen 18 mg/dL (6-20); Calcium 8.3 mg/dL (8.5-10.5); Carbon Dioxide 21 mmol/L (22-29); Chloride 96 mmol/L (98-107); Glomerular Filtration Rate 117.8 mL/min (90-130); Glucose 255 mg/dL (65-115); Magnesium 1.7 mg/dL (1.7-2.3); Osmolality Calculated 285 mOsm/kg (285-295); Phosphorus 3.6 mg/dL (2.5-4.5); Sodium 132 mmol/L (136-145)
[2022-07-19 06:36] LABS: Anion Gap 19.3 (5-19); Potassium 4.3 mmol/L (3.5-5.1)
[2022-07-19 08:03] LABS: Glucose Point of Care 234 mg/dL (70-110)
[2022-07-19] MEDS: insulin lispro 100 unit/1 mL SUBCUT ×2 (08:05→12:29)
[2022-07-19] MEDS: sennosides-docusate Tablet 1 TAB PO (08:05)
[2022-07-19] MEDS: sodium chloride 0.9% 1,000 ML 999 ML IV (08:22)
--- NOTE | 2022-07-19 08:42 | PM.DCS ---
Discharge Providers Date of Admission: 07/18/22 16:52 Date of Discharge: July 19, 2022 Attending Provider at Admission: Daniel Mosley MD Attending Provider at Discharge: Daniel Mosley MD Primary Care Provider: Peace Brothers MD Diagnoses at Discharge Discharge Diagnosis (1) High anion gap metabolic acidosis: Status: Acute (2) DKA (diabetic ketoacidosis): Status: Acute (3) Acute hyperkalemia: Status: Acute (4) Pseudohyponatremia: Status: Acute Reason for Visit Reason for Visit: HYPERGLYCEMIA Hospital Course Hospital Course 27-year male with insulin-dependent diabetes, he takes 20 units of Lantus along sliding scale, roughly he takes 50 units of insulin a day he missed his insulin 24 hours before he arrived in the ER, he was diagnosed with severe DKA with metabolic acidosis he was started on bicarb drip along insulin drip hyperkalemia improved. Drug screen was negative however there was no comment on methamphetamine however there is history of methamphetamine abuse in the past he is hemoglobin A1c is 11.3 I have asked him to increase his Lantus to 30 units a day, he can follow-up with Dr. Jones. He has remained tachycardic and hypertensive I am giving him another bolus before discharge from the hospital He remained afebrile, leukocytosis most likely stress leukemoid reaction. No source of infection identified. He does have dental caries. He needs to see dentist outpatient I reviewed his vitals from last year, he has remained hypertensive with blood pressure above 140s consistently, I will go ahead and start him on lisinopril 20 mg daily regimen Physical Exam Narrative: Dehydrated Awake and alert Currently on room air Abdomen soft Asking for food Awake and alert Pleasant cooperative No active signs of respite distress No active chest pain Tachycardic and hypertensive Discharge Data Studies Completed and Pending Completed Studies During Hospitalization Category Date Time Status XR chest 1V portable [id number] Stat Exams 07/18/22 15:11 Completed Pending at discharge Category Date Time Status Arterial Blood Gas W/O Coox Stat Lab 07/18/22 15:11 Ordered Radiology Impressions Chest X-Ray 07/18/22 15:11 IMPRESSION: No acute findings. Laboratory Results WBC 20.2 10^3/uL (4.0-10.0) H 07/19/22 01:50 RBC 4.59 10^6/uL (4.1-5.3) 07/19/22 01:50 Hgb 14.1 g/dL (11.7-16.6) 07/19/22 01:50 Hct 42.1 % (42.0-52.0) 07/19/22 01:50 MCV 91.7 fl (80-94) 07/19/22 01:50 MCH 30.7 pg (28.0-34.0) 07/19/22 01:50 MCHC 33.5 g/dL (30.0-36.0) 07/19/22 01:50 RDW 13.0 % (12.1-15.1) 07/19/22 01:50 Plt Count 279 10^3/cmm (130-400) D 07/19/22 01:50 MPV 10.3 fL (7.4-10.4) 07/19/22 01:50 Neut % (Auto) 72.6 % 07/19/22 01:50 Lymph % (Auto) 17.5 % 07/19/22 01:50 Mclean % (Auto) 8.7 % 07/19/22 01:50 Eos % (Auto) 0.0 % 07/19/22 01:50 Baso % (Auto) 0.4 % 07/19/22 01:50 Neut # (Auto) 14.66 10^3/uL (1.8-7.7) H 07/19/22 01:50 Lymph # (Auto) 3.5 10^3/uL (0.8-4.8) 07/19/22 01:50 Mclean # (Auto) 1.8 10^3/uL (0.2-0.9) H 07/19/22 01:50 Eos # (Auto) 0.0 10^3/uL (0.0-0.8) 07/19/22 01:50 Baso # (Auto) 0.1 10^3/uL (0.0-0.1) 07/19/22 01:50 Nucleated RBC % (auto) 0 % 07/19/22 01:50 Nucleated RBCs # 0.0 /100WBC 07/19/22 01:50 Sodium 132 mmol/L (136-145) L 07/19/22 05:52 Potassium 4.3 mmol/L (3.5-5.1) 07/19/22 05:52 Chloride 96 mmol/L (98-107) L 07/19/22 05:52 Carbon Dioxide 21 mmol/L (22-29) L 07/19/22 05:52 Anion Gap 19.3 (5-19) H 07/19/22 05:52 BUN 18 mg/dL (6-20) 07/19/22 05:52 Creatinine 0.8 mg/dL (0.7-1.2) 07/19/22 05:52 GFR Calculation 117.8 mL/min (90-130) 07/19/22 05:52 Glucose 255 mg/dL (65-115) H 07/19/22 05:52 POC Glucose 234 mg/dL (70-110) H 07/19/22 08:00 Estimat Average Glucose 278 07/18/22 15:05 Hemoglobin A1c 11.3 % (4.0-6.0) H 07/18/22 15:05 Calculated Osmolality 285 mOsm/kg (285-295) 07/19/22 05:52 Calcium 8.3 mg/dL (8.5-10.5) L 07/19/22 05:52 Phosphorus 3.6 mg/dL (2.5-4.5) 07/19/22 05:52 Magnesium 1.7 mg/dL (1.7-2.3) 07/19/22 05:52 Total Bilirubin 0.5 mg/dL (0.15-1.2) 07/18/22 15:05 AST 15 U/L (0-40) 07/18/22 15:05 ALT 35 U/L (0-41) 07/18/22 15:05 Alkaline Phosphatase 163 U/L (40-130) H 07/18/22 15:05 C-Reactive Protein 3.0 mg/L (0.0-4.9) 07/19/22 05:52 Total Protein 7.2 g/dL (6.6-8.7) 07/18/22 15:05 Albumin 4.5 g/dL (3.5-5.2) 07/18/22 15:05 Globulin 2.7 g/dL (1.3-4.6) 07/18/22 15:05 Urine Color Straw (Yellow) 07/18/22 15:20 Urine Appearance Clear (CLEAR) 07/18/22 15:20 Urine pH 5 (5-7) 07/18/22 15:20 Ur Specific [place] 1.020 (1.005-1.030) 07/18/22 15:20 Urine Protein Neg (Negative) 07/18/22 15:20 Urine Glucose (UA) 4+ (Normal) H 07/18/22 15:20 Urine Ketones 3+ (Negative) H 07/18/22 15:20 Urine Blood Neg (Negative) 07/18/22 15:20 Urine Nitrate Negative (Negative) 07/18/22 15:20 Urine Bilirubin Neg (Negative) 07/18/22 15:20 Urine Urobilinogen Norm mg/dL (Negative) 07/18/22 15:20 Ur Leukocyte Esterase Negative (Negative) 07/18/22 15:20 Urine Opiates Screen Negative ng/mL (Negative) 07/18/22 15:20 Ur Barbiturates Screen Negative ng/mL (Negative) 07/18/22 15:20 Ur Phencyclidine Scrn Negative ng/mL (Negative) 07/18/22 15:20 Ur Amphetamines Screen Negative ng/mL (Negative) 07/18/22 15:20 U Benzodiazepines Scrn Negative ng/mL (Negative) 07/18/22 15:20 Urine Cocaine Screen Negative ng/mL (Negative) 07/18/22 15:20 U Marijuana (THC) Screen Negative ng/mL (Negative) 07/18/22 15:20 Coronavirus 229E (PCR) Not detected (NOT DETECT) 07/18/22 20:54 SARS-CoV-2 (PCR) Not detected (NOT DETECT) 07/18/22 20:54 Vitals Last Vital Signs Temp 98.3 F 07/19/22 04:00 Pulse 112 H 07/19/22 08:00 Resp 14 07/19/22 08:00 BP 171/102 07/19/22 08:00 Pulse Ox 95 07/19/22 06:00 O2 Del Method 07/19/22 04:00 Discharge Plan Discharge Patient Disposition: Home Condition: Stable Prescriptions: New lisinopril 20 mg tablet 20 mg PO DAILY Qty: 60 3RF Continued (DME) blood-glucose meter [OneTouch Ultra2 Meter] Kit See Rx Instructions .Route Qty: 1 0RF Rx Instructions: To use TID to check blood sugar levels before taking insulin (DME) blood sugar diagnostic Strip See Rx Instructions .Route Qty: 300 3RF Rx Instructions: To use TID in onetouch meter to check blood sugar, 90 day supply Novolin R Flexpen 100 unit/mL (3 mL) insulin pen See Rx Instructions .ROUTE .COMPLEX Rx Instructions: subcutaneously per sliding scale Changed Levemir FlexTouch U-100 Insuln 100 unit/mL (3 mL) insulin pen 30 unit SUBCUT QPM Qty: 15 3RF Discharge Orders: Discharge Order (Routine); Ordered 07/19/22 Ordered By: Daniel Mosley Referrals: Peace Brothers MD [Primary Care Provider] - Elmer Jones MD [Physician] - 1-3 days Patient Instructions: Opioid Safety Discharge Attestations Time Spent in Discharge Care*: less than 30 min Status at Discharge: Cognitive status at discharge: cognitively intact, Behavioral status at discharge: cooperative, Quality Metrics Clinical Quality Measures [ No reported AMI, CVA or VTE this stay] Coding Level of Care Code Acute Chg DC note Diagnoses High anion gap metabolic acidosis E87.2 DKA (diabetic ketoacidosis) E11.10 Acute hyperkalemia E87.5 Pseudohyponatremia R79.89
[2022-07-19] MEDS: ALPRAZolam 0.5 mg Tablet PO (08:51)
[2022-07-19] MEDS: dilTIAZem 5 mg/mL SDV 5 mL IVP (08:52)
[2022-07-19] MEDS: lisinopril 20 mg Tablet PO (09:21)
--- NOTE | 2022-07-19 10:33 | PC.CHAP ---
Pastoral Care Encounter/Spiritual Assessment Type of Contact [] Declined teaching supervisor visit [] Patient/Family/Request visit [] Outpatient visit [] Follow-up visit [] Physician referral [] Code/Alert [x] Routine visit [] Staff referral [] Actively dying [x] Patient sleeping [] Family support [] [] Out of room [] Palliative care [] [] Receiving care in room [] Pre-surgical visit [] Trauma [] Long length of stay [x] ICU visit [] Other: Relational/Emotional Strength [] Patient feels connected with others/family/visitors/staff [] Distress [] Loneliness/isolation [] Abandonment Spirituality of Patient [] Person of Lea [] Attends Yazdanism of their Lea [] Believes in Prayer [] Reads Bible or Methodist materials [] There are Spiritual issues to be addressed Physician Credentialing Specialist Interventions [x] Prayer [] Active listening [] Non-anxious presence [] Spiritual/emotional support [] Crisis/trauma care [] Spiritual counseling [] Bereavement support [] Provided bereavement packet [] Provided Bible/devotional materials [] Provided toy/stuffed animal, coloring book to patient or family member [] Provided Communion [] Anointing/Kelso [] Salvation [x] Completed spiritual assessment [] Other: Impact on Illness or Injury [] Angry [] Fearful [] Anxious [] Often cries [] Exhaustion [] Unable to work [] Unable to attend baptist [] Unable to walk/stand [] Unable to read [] Unable to drive [] Unable to eat/drink [] Unable to sleep [] Unable to be with family [] Patient intubated [] Other: Summary Time spent with patient
[2022-07-19 12:26] LABS: Glucose Point of Care 217 mg/dL (70-110)
--- NOTE | 2022-07-19 13:22 | PC.NURSE ---
Patient discharged via w/c to surgery exit door with significant other. All discharge instructions given to patient along with prescriptions and verbalized understanding. All IV's removed. All patient belongings sent with patient.
== END 2022-07-19 13:03 | disposition home or self-care (01) | DRG 639 ==
LOC: ER 15:56 → ICU 07-19 00:29
PROVIDERS: Admitting Provider Internal Medicine; Emergency Provider Emergency Medicine; PCP Family Medicine; Visit Provider Internal Medicine
DX: E10.10 Type 1 diabetes mellitus with ketoacidosis without coma (principal); I10 Essential (primary) hypertension; F17.210 Nicotine dependence, cigarettes, uncomplicated; E87.5 Hyperkalemia; T38.3X6A Underdosing of insulin and oral hypoglycemic [antidiabetic] drugs, initial encounter; Z91.128 Patient's intentional underdosing of medication regimen for other reason
CPT/HCPCS: 36415; 36416; 71045; 80048; 80053; 80306; 81003; 82947; 82962; 83036; 83735; 84100; 85025; 86140; 87635; 93005; 96365; 96372; 96375; 99285; G0378; J1650; J1815; J3490; J7030; J7050

== ENCOUNTER 2022-08-12 08:12 | Inpatient (IN) | payer MEDICAID, SELFPAY ==
[2022-08-12] VITALS (58 sets, daily range): BP systolic 122–155; BP diastolic 73–107; PULSE 106–130; RESP 11–24; TEMP 36.4–37.2; O2SAT 92–100; BMI 16.9
--- NOTE | 2022-08-12 08:19 | ED_ITS ---
HPI - General Adult General: Chief complaint: Altered Mental Status Stated complaint: HIGH BLOOD SUGAR Time Seen by Provider: 08/12/22 08:16 History of Present Illness: 27-year-old male brought in by EMS with concerns for DKA. Patient is currently incarcerated started vomiting this morning. Has been approximately 1 week since he has had his insulin. Patient has a history of DKA. They were called because he has some generalized malaise weakness nausea and vomiting. Patient's blood sugar was found to be in the 500s. EMS has an 18 and a 20-gauge with IV fluids running. No reports of fever or chills cough or other systemic complaints. Associated symptoms: Reports malaise, nausea and vomiting; Deny chest pain, dyspnea, headache(s), rash or palpitations Review of Systems Const: Reports: fatigue and malaise; Denies: fever(s) or chills Eyes: Denies: change in vision or blurry vision ENMT: Denies: throat pain or ear or mastoid pain Card: Denies: chest pain or palpitations Resp: Denies: dyspnea or productive cough GI: Reports: nausea and vomiting; Denies: abdominal pain : Denies: difficulty urinating or urinary frequency Musc: Denies: neck pain or back pain Skin/Breast: Denies: rash or pruritus Neuro: Denies: headache(s) or numbness in extremities PFSH ED PFSH: Medical History MICHAEL (acute kidney injury) Diabetes type 1, uncontrolled History of DKA DKA (diabetic ketoacidosis) High anion gap metabolic acidosis Hyperkalemia Hyperkalemia Lactic acidosis Leukocytosis Leukocytosis Long-term insulin use Metabolic acidosis Pseudohyponatremia Psychiatric care Tachycardia Transaminitis Surgical History No history of previous surgery none known Family History Other Family history unknown Social History Smoking and tobacco status: current every day smoker cigarettes Packs smoked per day: 1 Alcohol intake: former Current occupational status: employed Physical Exam Const: COMMON NORMALS: no acute distress, patient oriented x3 and no limitations GENERAL APPEARANCE: lethargic and ill appearing NUTRITIONAL APPEARANCE: thin ORIENTATION/CONSCIOUSNESS: Yes lethargic Resp: COMMON NORMALS: normal respiratory effort, No use of accessory muscles and clear to auscultation bilaterally AUSCULTATION: clear to auscultation bilaterally Cardio: COMMON NORMALS: regular rhythm RATE: tachycardic RHYTHM: regular rhythm GI: COMMON NORMALS: Soft to palpation INSPECTION: Yes normal to inspection PALPATION: Yes Soft to palpation and No Tenderness to palpation present (GI) Extremity: COMMON NORMALS: normal to inspection Neuro: COMMON NORMALS: patient oriented x3, no focal motor deficits and no sensory deficits noted SENSORIUM/ORIENTATION: Yes lethargic Psych: APPEARANCE: Yes grossly normal Skin: COMMON NORMALS: no rashes or lesions noted GENERAL SKIN EXAM: no rashes or lesions noted OTHER: Diffuse tattoos Course Vital Signs: Vital signs: Vital Signs Temperature 97.6 F 08/12/22 08:14 Pulse Rate 118 H 08/12/22 08:57 Respiratory Rate 18 08/12/22 08:57 Blood Pressure 144/85 08/12/22 08:57 Pulse Oximetry 100 08/12/22 08:57 Oxygen Delivery Me thod 08/12/22 08:57 [facility] - General Adult Medical Decision Making Patient with DKA. Patient started on insulin drip bicarb drip. Patient admitted to Dr. Mosley into the ICU. Patient was critical upon transfer Lab Data : 08/12/22 08:05 08/12/22 08:05 Laboratory Results WBC 34.3 10^3/uL (4.0-10.0) H* 08/12/22 08:05 RBC 4.84 10^6/uL (4.1-5.3) 08/12/22 08:05 Hgb 14.8 g/dL (11.7-16.6) 08/12/22 08:05 Hct 47.9 % (42.0-52.0) 08/12/22 08:05 MCV 99.0 fl (80-94) H 08/12/22 08:05 MCH 30.6 pg (28.0-34.0) 08/12/22 08:05 MCHC 30.9 g/dL (30.0-36.0) 08/12/22 08:05 RDW 12.5 % (12.1-15.1) 08/12/22 08:05 Plt Count 419 10^3/cmm (130-400) H 08/12/22 08:05 MPV 12.7 fL (7.4-10.4) H 08/12/22 08:05 Neut % (Auto) 83.2 % 08/12/22 08:05 Lymph % (Auto) 8.5 % 08/12/22 08:05 [place] % (Auto) 4.9 % 08/12/22 08:05 Eos % (Auto) 0.0 % 08/12/22 08:05 Baso % (Auto) 0.7 % 08/12/22 08:05 Neut # (Auto) 28.54 10^3/uL (1.8-7.7) H 08/12/22 08:05 Lymph # (Auto) 2.9 10^3/uL (0.8-4.8) 08/12/22 08:05 [place] # (Auto) 1.7 10^3/uL (0.2-0.9) H 08/12/22 08:05 Eos # (Auto) 0.0 10^3/uL (0.0-0.8) 08/12/22 08:05 Baso # (Auto) 0.2 10^3/uL (0.0-0.1) H 08/12/22 08:05 Nucleated RBC % (auto) 0 % 08/12/22 08:05 Nucleated RBCs # 0.0 /100WBC 08/12/22 08:05 Specimen Type Arterial 08/12/22 08:14 Sample Site Radial, right 08/12/22 08:14 ABG pH 7.06 (7.35-7.45) L* 08/12/22 08:14 ABG pCO2 10.1 mmHg (35-45) L* 08/12/22 08:14 ABG pO2 148.0 mmHg (80.0-100.0) H 08/12/22 08:14 ABG HCO3 2.8 mmol/L (22-26) L 08/12/22 08:14 ABG Base Excess -25.3 mmol/L (-2.0-2.0) L 08/12/22 08:14 Bereket Test Pos 08/12/22 08:14 Hematocrit 40.8 % (42-52) L 08/12/22 08:14 O2 Delivery Device Room air 08/12/22 08:14 FiO2 21.0 % 08/12/22 08:14 Utilities Manager ID Gage 08/12/22 08:14 Sodium 124 mmol/L (136-145) L 08/12/22 08:05 Potassium 6.0 mmol/L (3.5-5.1) H 08/12/22 08:05 Chloride 80 mmol/L (98-107) L 08/12/22 08:05 Carbon Dioxide 5 mmol/L (22-29) L* 08/12/22 08:05 Anion Gap 45.0 (5-19) H 08/12/22 08:05 BUN 46 mg/dL (6-20) H 08/12/22 08:05 Creatinine 1.8 mg/dL (0.7-1.2) H 08/12/22 08:05 GFR Calculation 46.2 mL/min (90-130) L 08/12/22 08:05 Glucose 1000 mg/dL (65-115) H* 08/12/22 08:05 Calculated Osmolality 320 mOsm/kg (285-295) H 08/12/22 08:05 Calcium 9.9 mg/dL (8.5-10.5) 08/12/22 08:05 Magnesium 3.0 mg/dL (1.7-2.3) H 08/12/22 08:05 Total Bilirubin 0.3 mg/dL (0.15-1.2) 08/12/22 08:05 AST 16 U/L (0-40) 08/12/22 08:05 ALT 28 U/L (0-41) 08/12/22 08:05 Alkaline Phosphatase 162 U/L (40-130) H 08/12/22 08:05 Total Protein 6.6 g/dL (6.6-8.7) 08/12/22 08:05 Albumin 4.0 g/dL (3.5-5.2) 08/12/22 08:05 Globulin 2.6 g/dL (1.3-4.6) 08/12/22 08:05 Lipase 8 U/L (13-60) L 08/12/22 08:05 Discharge Plan Discharge Patient Disposition: Admitted As Inpatient Clinical Impression: DKA (diabetic ketoacidosis) Condition: Stable Prescriptions: No Action (DME) blood-glucose meter [OneTouch Ultra2 Meter] Kit See Rx Instructions .Route Qty: 1 0RF Rx Instructions: To use TID to check blood sugar levels before taking insulin Levemir FlexTouch U-100 Insuln 100 unit/mL (3 mL) insulin pen 30 unit SUBCUT QPM Qty: 15 3RF lisinopril 20 mg tablet 20 mg PO DAILY Qty: 60 3RF amlodipine 10 mg tablet 10 mg PO DAILY Qty: 90 2RF (DME) blood sugar diagnostic Strip See Rx Instructions .Route Qty: 300 3RF Rx Instructions: To use TID in onetouch meter to check blood sugar, 90 day supply Novolin R Flexpen 100 unit/mL (3 mL) insulin pen See Rx Instructions .ROUTE .COMPLEX Rx Instructions: subcutaneously per sliding scale Referrals: Peace Brothers MD [Primary Care Provider] - Coding Level of Care Code ED Hand Outside Cutter for Chg Fwd Exam Comprehensive
--- NOTE | 2022-08-12 08:25 | ECG_ITS ---
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 Measurements Intervals Brea Rate: 115 P: 81 AL: 184 QRS: 72 QRSD: 98 T: 71 QT: 321 QTc: 445 Interpretive Statements SINUS TACHYCARDIA POSSIBLE LEFT ATRIAL ENLARGEMENT [-0.1mV P-WAVE IN V1/V2] SEPTAL MYOCARDIAL INFARCTION , OF INDETERMINATE AGE [40+ ms Q WAVE IN V1/V2] Compared to ECG 07/18/2022 15:29:10 Myocardial infarct finding now present Electronically Signed On 08-12-2022 10:17:54 CDT by Tamir Aquino M.D. [email or web address]
[2022-08-12 08:27] LABS: ABG PH Result 7.06 (7.35-7.45); Arterial Blood Gas Hematocrit 40.8 % (42-52); Base Excess ABG -25.3 mmol/L (-2.0-2.0); Blood Gas Allen Test Pos; Blood Gas Operator Identificat MONRO; Blood Gas Sample Site Radial, right; Blood Gas Sample Type Arterial; HCO3 ABG 2.8 mmol/L (22-26); Oxygen Device ROOM AIR
[2022-08-12 08:28] LABS: ABG PCO2 10.1 mmHg (35-45)
[2022-08-12 08:54] LABS: Basophils # 0.2 10^3/uL (0.0-0.1); Basophils % 0.7 %; Hematocrit 47.9 % (42.0-52.0); Hemoglobin 14.8 g/dL (11.7-16.6); Lymphocytes # 2.9 10^3/uL (0.8-4.8); Lymphocytes % 8.5 %; Mean Corpuscular HGB Conc 30.9 g/dL (30.0-36.0); Mean Corpuscular Hemoglobin 30.6 pg (28.0-34.0); Mean Platelet Volume 12.7 fL (7.4-10.4); Monocytes # 1.7 10^3/uL (0.2-0.9); Monocytes % 4.9 %; Neutrophils # 28.54 10^3/uL (1.8-7.7); Neutrophils % 83.2 %; Nucleated Red Blood Cells % 0 %; Platelet Count 419 10^3/cmm (130-400); Red Blood Count 4.84 10^6/uL (4.1-5.3); Red Cell Distribution Width 12.5 % (12.1-15.1)
[2022-08-12] MEDS: sodium bicarbonate 50 MEQ in sodium chloride 0.45% 1,000 ML 100 MEQ IV (08:54)
[2022-08-12 09:08] LABS: White Blood Count 34.3 10^3/uL (4.0-10.0)
[2022-08-12] MEDS: ondansetron 2 mg/ML SDV 2 mL 4 MG IVP (09:10)
[2022-08-12 09:14] LABS: Alanine Aminotransferase 28 U/L (0-41); Alkaline Phosphatase 162 U/L (40-130); Aspartate Amino Transferase 16 U/L (0-40); Blood Urea Nitrogen 46 mg/dL (6-20); Calcium 9.9 mg/dL (8.5-10.5); Chloride 80 mmol/L (98-107); Globulin 2.6 g/dL (1.3-4.6); Glomerular Filtration Rate 46.2 mL/min (90-130); Lipase 8 U/L (13-60); Sodium 124 mmol/L (136-145); Total Bilirubin 0.3 mg/dL (0.15-1.2); Total Protein 6.6 g/dL (6.6-8.7)
[2022-08-12 09:25] LABS: Osmolality Calculated 320 mOsm/kg (285-295)
[2022-08-12 09:26] LABS: Carbon Dioxide 5 mmol/L (22-29)
[2022-08-12 09:27] LABS: Glucose 1000 mg/dL (65-115)
[2022-08-12] MEDS: insulin regular-human 100 units/1 mL 15 UNIT IVP (09:48)
--- NOTE | 2022-08-12 10:10 | P.HP_ITS ---
Providers/Chief Complaint Primary Care Provider: Peace Brothers MD Chief Complaint: HIGH BLOOD SUGAR History of Present Illness Jean Miller is a 27 year old male was incarcerated, did not get insulin for 1 week presented to the hospital with recurrent nausea vomiting. In the ER he has been diagnosed with DKA. Patient is not able to recall what happened and why he was incarcerated. He has been given 2 L of bolus, I have requested bicarb with D5 and initiation of insulin so far he has received 15 units of IV insulin. Insulin drip is being started when I evaluated him in the ER Potassium is 6.0 Bicarb is 5 He will need ICU, insulin drip, bicarb BMP every 4 hours Review of Systems Const: Reports: chills and body aches Eyes: Denies: change in vision ENMT: Denies: throat pain Card: Denies: chest pain Resp: Denies: dyspnea GI: Reports: nausea and vomiting : Denies: flank pain Musc: Denies: neck pain Skin/Breast: Denies: rash Neuro: Denies: headache(s) Psych: Reports: anxiety Endo: Denies: polyuria Basim/Lymph: Denies: easy bruising All/Imm: Denies: urticaria Medications/Allergies Home Medications Medication Instructions Recorded Confirmed Last Taken Type blood-glucose meter (OneTouch #1 ea 04/02/22 08/12/22 Unknown Rx Ultra2 Meter kit) blood sugar diagnostic #300 ea 05/12/22 08/12/22 Unknown Rx insulin regular human 100 unit/mL See Rx Instructions .Route .COMPLEX 06/12/22 08/12/22 Unknown History (3 mL) subcutaneous pen (Novolin R Flexpen) amlodipine 10 mg tablet 10 mg PO DAILY #90 tabs 07/19/22 08/12/22 Unknown Rx insulin detemir U-100 100 unit/mL 30 unit (0.3 mL) SUBCUT QPM #15 mL 07/19/22 08/12/22 Unknown Rx (3 mL) subcutaneous pen (Levemir FlexTouch U-100 Insulin) lisinopril 20 mg tablet 20 mg PO DAILY #60 tabs 07/19/22 08/12/22 Unknown Rx Allergies Allergy/AdvReac Type Severity Reaction Status Date / Time No Known Allergies Allergy Verified 06/12/22 16:40 PFSH Acute PFSH: Medical History Acute hyperkalemia MICHAEL (acute kidney injury) Diabetes type 1, uncontrolled History of DKA DKA (diabetic ketoacidosis) DKA (diabetic ketoacidosis) High anion gap metabolic acidosis High anion gap metabolic acidosis Hyperkalemia Hyperkalemia Lactic acidosis Leukocytosis Leukocytosis Long-term insulin use Metabolic acidosis Pseudohyponatremia Pseudohyponatremia Psychiatric care Tachycardia Transaminitis Surgical History No history of previous surgery none known Family History Other Family history unknown Social History Smoking and tobacco status: current every day smoker cigarettes Packs smoked pe r day: 1 Alcohol intake: former Current occupational status: employed Vitals/I&O/Wt Last Vital Signs Temp 97.6 F 08/12/22 08:14 Pulse 118 H 08/12/22 08:57 Resp 18 08/12/22 08:57 BP 144/85 08/12/22 08:57 Pulse Ox 100 08/12/22 08:57 O2 Del Method 08/12/22 08:57 Weight last 48 hrs Weight 56.699 kg Physical Exam Narrative: Young male Awake and alert Nonfocal neuro exam Short attention span Tachycardic Dehydrated Abdomen soft No audible stridor or wheezing Currently on room air No signs cellulitis Skin tattoos noted Data : 08/12/22 08:05 08/12/22 08:05 A&P Assessment and plan (1) DKA (diabetic ketoacidosis): (2) Amphetamine abuse: Plan DKA, severe metabolic acidosis Admit to ICU Start bicarb with D5 Leukocytosis seems stress leukemoid reaction to DKA We will obtain drug screen and chest x-ray He received 2 L of bolus Insulin drip DKA protocol Potassium is 6.0 BMP every 4 hours Will add normal saline at 100 mm/h Once blood sugar is below 250 we will add D5 half-normal saline and if potassium is below 5 we will add 40 mEq We will keep an eye on his anion gap and BMP every 4 hours Check drug screen Hyponatremia is due to hyperglycemia Full code N.p.o. for now DVT prophylaxis Heparin MICHAEL related to dehydration Attestations Medical Necessity Statement*: More than 2 midnights anticipated Time Spent in Patient Care: 40 Coding Level of Care Code Acute Stocking Inspector for g Fwd Diagnoses DKA (diabetic ketoacidosis) E11.10 Amphetamine abuse F15.10
--- NOTE | 2022-08-12 10:13 | XRR_ITS ---
PROCEDURE INFORMATION: Exam: XR Chest Exam date and time: 08/12/2022 10:20 AM Age: 27 years old Clinical indication: Abnormal findings; Other: Dka TECHNIQUE: Imaging protocol: Radiologic exam of the chest. Views: 1 view. COMPARISON: CR XR chest 1V portable [id number] 07/18/2022 3:17 PM FINDINGS: Lungs: The lung parenchyma is clear. Pleural spaces: No pneumothorax. No pleural effusion. Heart/Mediastinum: The cardiomediastinal silhouette is within normal limits. Bones/joints: Unremarkable. XR/XR chest 1V portable [id number] IMPRESSION: No acute cardiopulmonary abnormality.
[2022-08-12 10:16] LABS: Add Urine Microscopic? NO; Charge for UA Resulting for Rev
[2022-08-12] MEDS: insulin regular-human 250 UNIT in sodium chloride 0.9% 250 ML 28.2 UNIT IV (10:18)
[2022-08-12] MEDS: sodium bicarbonate 150 MEQ in dextrose 5% 1,000 ML 100 MEQ IV ×2 (10:19→20:08)
[2022-08-12] MEDS: sodium chloride 0.9% 1,000 ML 999 ML IV (10:23)
[2022-08-12 10:33] LABS: Bilirubin Urine Neg (Negative); Blood Urine Neg (Negative); Glucose Urine UA 4+ (Normal); Ketones Urine 3+ (Negative); Leukocyte Esterase Urine Negative (Negative); Nitrate Urine Negative (Negative); Protein Urine Neg (Negative); Specific Gravity, Urine 1.015 (1.005-1.030); Urine Appearance Clear (CLEAR); Urine Color Straw (Yellow); Urobilinogen Urine Norm (Negative); pH Urine 5 (5-7)
[2022-08-12 10:38] LABS: Amphetamines Screen Urine Positive (Negative); Barbiturates Screen Urine Negative (Negative); Benzodiazepines Screen Urine Negative (Negative); Cocaine Screen Urine Negative (Negative); Opiate Screen Urine Negative (Negative); PCP Screen Urine Negative (Negative); THC Screen Urine Negative (Negative)
[2022-08-12 10:53] LABS: Procalcitonin 1.58 ng/mL (0-0.5)
[2022-08-12 11:10] LABS: Glucose Point of Care > 600 mg/dL (70-110)
[2022-08-12 11:11] LABS: Glucose Point of Care > 600 mg/dL (70-110)
[2022-08-12 11:45] LABS: Thyroid Stimulating Hormone 0.25 uIU/mL (0.27-4.20)
[2022-08-12 12:12] LABS: Glucose Point of Care > 600 mg/dL (70-110)
[2022-08-12 12:59] LABS: Glucose Point of Care > 600 mg/dL (70-110)
[2022-08-12] MEDS: heparin 5,000 unit/mL INJ 1 mL 5000 UNIT SUBCUT ×2 (13:02→23:17)
[2022-08-12 14:01] LABS: Glucose Point of Care 467 mg/dL (70-110)
[2022-08-12 15:18] LABS: Glucose Point of Care 417 mg/dL (70-110)
[2022-08-12 16:21] LABS: Glucose Point of Care 347 mg/dL (70-110)
[2022-08-12 16:34] LABS: Basophils # 0.1 10^3/uL (0.0-0.1); Basophils % 0.3 %; Hematocrit 41.1 % (42.0-52.0); Hemoglobin 13.8 g/dL (11.7-16.6); Lymphocytes # 3.3 10^3/uL (0.8-4.8); Lymphocytes % 11.5 %; Mean Corpuscular HGB Conc 33.6 g/dL (30.0-36.0); Mean Corpuscular Hemoglobin 30.4 pg (28.0-34.0); Mean Corpuscular Volume 90.5 fl (80-94); Mean Platelet Volume 11.1 fL (7.4-10.4); Monocytes # 1.8 10^3/uL (0.2-0.9); Monocytes % 6.2 %; Neutrophils # 22.98 10^3/uL (1.8-7.7); Neutrophils % 80.1 %; Nucleated Red Blood Cells % 0 %; Platelet Count 331 10^3/cmm (130-400); Red Blood Count 4.54 10^6/uL (4.1-5.3); Red Cell Distribution Width 12.4 % (12.1-15.1); White Blood Count 28.7 10^3/uL (4.0-10.0)
[2022-08-12 16:53] LABS: Glucose Point of Care 306 mg/dL (70-110)
[2022-08-12 17:04] LABS: Anion Gap 18.8 (5-19); Blood Urea Nitrogen 30 mg/dL (6-20); Carbon Dioxide 17 mmol/L (22-29); Chloride 96 mmol/L (98-107); Creatinine Clr Calc Pharmacy 90.5609; Glucose 324 mg/dL (65-115); Osmolality Calculated 285 mOsm/kg (285-295); Potassium 3.8 mmol/L (3.5-5.1); Sodium 128 mmol/L (136-145)
[2022-08-12 17:45] LABS: Glucose Point of Care 374 mg/dL (70-110)
[2022-08-12 20:01] LABS: Basophils # 0.1 10^3/uL (0.0-0.1); Basophils % 0.3 %; Hematocrit 38.3 % (42.0-52.0); Lymphocytes # 2.8 10^3/uL (0.8-4.8); Lymphocytes % 11.7 %; Mean Corpuscular HGB Conc 33.9 g/dL (30.0-36.0); Mean Corpuscular Hemoglobin 30.2 pg (28.0-34.0); Mean Corpuscular Volume 89.1 fl (80-94); Monocytes # 1.8 10^3/uL (0.2-0.9); Monocytes % 7.6 %; Neutrophils # 18.66 10^3/uL (1.8-7.7); Nucleated Red Blood Cells % 0 %; Platelet Count 314 10^3/cmm (130-400); Red Cell Distribution Width 12.3 % (12.1-15.1); White Blood Count 23.6 10^3/uL (4.0-10.0)
[2022-08-12 20:20] LABS: Anion Gap 9.5 (5-19); Blood Urea Nitrogen 25 mg/dL (6-20); Calcium 8.5 mg/dL (8.5-10.5); Carbon Dioxide 24 mmol/L (22-29); Chloride 99 mmol/L (98-107); Glomerular Filtration Rate 117.8 mL/min (90-130); Glucose 177 mg/dL (65-115); Osmolality Calculated 277 mOsm/kg (285-295); Potassium 3.5 mmol/L (3.5-5.1); Sodium 129 mmol/L (136-145)
--- NOTE | 2022-08-12 20:30 | PC.NURSE ---
Communication w/ Dr. Chacon @1949. Update on current BG of 200, current vitals, slight lethargy but able to appropriately answer questions, and pt request for food. New order to advance diet when anion gap is closed. Labs drawn @1954. Current anion gap is 9.5.
[2022-08-12] MEDS: sodium chloride 0.9% 1,000 ML 100 ML IV (20:45)
--- NOTE | 2022-08-12 20:59 | PC.NURSE ---
Addendum entered by Vannessa Leach RN 08/12/22 21:27: Let insuiln drip run for 1 hr after lantus has been given. Original Note: Per Dr. Chacon, let pt eat, give 30 unit lantus (pts home dose), let insulin drip run for 1hr before shutting off.
[2022-08-12] MEDS: insulin glargine 100 units/1 mL 30 UNIT SUBCUT (21:46)
[2022-08-12 23:51] LABS: Basophils # 0.1 10^3/uL (0.0-0.1); Basophils % 0.3 %; Hematocrit 37.9 % (42.0-52.0); Lymphocytes # 2.8 10^3/uL (0.8-4.8); Lymphocytes % 11.7 %; Mean Corpuscular HGB Conc 34.3 g/dL (30.0-36.0); Mean Corpuscular Hemoglobin 30.8 pg (28.0-34.0); Mean Corpuscular Volume 89.8 fl (80-94); Monocytes # 1.8 10^3/uL (0.2-0.9); Monocytes % 7.8 %; Neutrophils # 18.54 10^3/uL (1.8-7.7); Nucleated Red Blood Cells % 0 %; Platelet Count 291 10^3/cmm (130-400); Red Blood Count 4.22 10^6/uL (4.1-5.3); Red Cell Distribution Width 12.4 % (12.1-15.1); White Blood Count 23.5 10^3/uL (4.0-10.0)
[2022-08-13] VITALS (45 sets, daily range): BP systolic 142–187; BP diastolic 90–112; PULSE 97–121; RESP 3–19; TEMP 36.8–37.6; O2SAT 89–100
[2022-08-13 00:12] LABS: Anion Gap 13.9 (5-19); Blood Urea Nitrogen 22 mg/dL (6-20); Calcium 8.4 mg/dL (8.5-10.5); Carbon Dioxide 26 mmol/L (22-29); Chloride 98 mmol/L (98-107); Glomerular Filtration Rate 102.8 mL/min (90-130); Glucose 158 mg/dL (65-115); Osmolality Calculated 285 mOsm/kg (285-295); Potassium 3.9 mmol/L (3.5-5.1); Sodium 134 mmol/L (136-145)
[2022-08-13 03:43] LABS: Basophils # 0.1 10^3/uL (0.0-0.1); Basophils % 0.3 %; Hematocrit 39.1 % (42.0-52.0); Lymphocytes # 2.4 10^3/uL (0.8-4.8); Lymphocytes % 10.6 %; Mean Corpuscular HGB Conc 33.2 g/dL (30.0-36.0); Mean Corpuscular Hemoglobin 30.7 pg (28.0-34.0); Mean Corpuscular Volume 92.4 fl (80-94); Monocytes # 1.1 10^3/uL (0.2-0.9); Monocytes % 5.1 %; Neutrophils # 18.41 10^3/uL (1.8-7.7); Neutrophils % 82.9 %; Nucleated Red Blood Cells % 0 %; Platelet Count 249 10^3/cmm (130-400); Red Blood Count 4.23 10^6/uL (4.1-5.3); Red Cell Distribution Width 12.6 % (12.1-15.1); White Blood Count 22.2 10^3/uL (4.0-10.0)
[2022-08-13 04:08] LABS: Blood Urea Nitrogen 19 mg/dL (6-20); Calcium 8.2 mg/dL (8.5-10.5); Carbon Dioxide 24 mmol/L (22-29); Chloride 94 mmol/L (98-107); Glomerular Filtration Rate 117.8 mL/min (90-130); Glucose 218 mg/dL (65-115); Magnesium 1.6 mg/dL (1.7-2.3); Osmolality Calculated 279 mOsm/kg (285-295); Sodium 130 mmol/L (136-145)
[2022-08-13] MEDS: sodium bicarbonate 150 MEQ in dextrose 5% 1,000 ML 100 MEQ IV (04:15)
--- NOTE | 2022-08-13 05:57 | PC.NURSE ---
Shift Note Frequent safety and comfort rounds continue. Orders and/or nursing care completed as indicated. Patient monitored for response to intervention and treatment(s). Education provided includes medications. Patient needs reinforcement teaching. Patient had an uneventful shift, remains on room air and is alert/oriented x4. Bicarb and NS infusing per orders please see MAR for detail. Will continue to monitor.
[2022-08-13] MEDS: sodium chloride 0.9% 1,000 ML 100 ML IV (06:26)
[2022-08-13] MEDS: insulin lispro 100 unit/1 mL SUBCUT (07:21)
[2022-08-13 08:20] LABS: Basophils # 0.1 10^3/uL (0.0-0.1); Basophils % 0.5 %; Hematocrit 39.9 % (42.0-52.0); Hemoglobin 13.9 g/dL (11.7-16.6); Lymphocytes # 1.9 10^3/uL (0.8-4.8); Lymphocytes % 9.6 %; Mean Corpuscular HGB Conc 34.8 g/dL (30.0-36.0); Mean Corpuscular Hemoglobin 30.5 pg (28.0-34.0); Mean Corpuscular Volume 87.7 fl (80-94); Mean Platelet Volume 11.3 fL (7.4-10.4); Monocytes # 0.9 10^3/uL (0.2-0.9); Monocytes % 4.4 %; Neutrophils # 16.95 10^3/uL (1.8-7.7); Neutrophils % 84.5 %; Nucleated Red Blood Cells % 0 %; Platelet Count 284 10^3/cmm (130-400); Red Blood Count 4.55 10^6/uL (4.1-5.3); Red Cell Distribution Width 12.5 % (12.1-15.1); White Blood Count 20.1 10^3/uL (4.0-10.0)
[2022-08-13] MEDS: insulin lispro 100 unit/1 mL 10 UNIT SUBCUT (08:24)
[2022-08-13 08:44] LABS: Anion Gap 12.2 (5-19); Blood Urea Nitrogen 18 mg/dL (6-20); Calcium 8.6 mg/dL (8.5-10.5); Carbon Dioxide 30 mmol/L (22-29); Chloride 89 mmol/L (98-107); Glomerular Filtration Rate 117.8 mL/min (90-130); Glucose 343 mg/dL (65-115); Osmolality Calculated 281 mOsm/kg (285-295); Potassium 3.2 mmol/L (3.5-5.1); Sodium 128 mmol/L (136-145)
[2022-08-13 08:52] LABS: Slide Review Slide Review Perform
--- NOTE | 2022-08-13 08:53 | PM.DCS ---
Discharge Providers Date of Admission: 08/12/22 10:01 Date of Discharge: August 13, 2022 Attending Provider at Admission: Daniel Mosley MD Attending Provider at Discharge: Daniel Mosley MD Primary Care Provider: Peace Brothers MD Diagnoses at Discharge Discharge Diagnosis (1) DKA (diabetic ketoacidosis): Status: Acute (2) Amphetamine abuse: Status: Acute Reason for Visit Reason for Visit: HIGH BLOOD SUGAR Hospital Course Hospital Course 27-year-old male who was discharged after DKA management 3 weeks ago presented back because he was incarcerated for 7 days and did not receive any insulin, he presented with recurrent nausea and vomiting and was diagnosed with severe DKA he was started on insulin drip along with bicarb drip, his anion gap closed within 12 to 16 hours, he was able to tolerate his diet, his electrolytes were replenished I have asked him to take 40 units of Lantus with his sliding scale. On average he takes 7 to 10 units of short acting insulin before meal. His hyponatremia is related to hyperglycemia. His drug screen is positive for methamphetamine. He remained hypertensive he was prescribed lisinopril and amlodipine for his stage II hypertension Physical Exam Narrative: Is awake and alert Tolerating his diet Multiple skin tattoos Abdomen soft Signs of dehydration improved Awake and alert Nonfocal neuro exam Discharge Data Studies Completed and Pending Completed Studies During Hospitalization Category Date Time Status XR chest 1V portable [id number] Stat Exams 08/12/22 10:13 Completed Pending at discharge Category Date Time Status Basic Metabolic Panel Q4H Lab 08/13/22 11:56 Ordered Basic Metabolic Panel Q4H Lab 08/13/22 15:56 Ordered Basic Metabolic Panel Q4H Lab 08/13/22 19:56 Ordered Basic Metabolic Panel Q4H Lab 08/13/22 23:56 Ordered Basic Metabolic Panel Q4H Lab 08/14/22 03:56 Ordered Basic Metabolic Panel Q4H Lab 08/14/22 07:56 Ordered Basic Metabolic Panel Q4H Lab 08/14/22 11:56 Ordered Basic Metabolic Panel Q4H Lab 08/14/22 15:56 Ordered Basic Metabolic Panel Q4H Lab 08/14/22 19:56 Ordered Basic Metabolic Panel Q4H Lab 08/14/22 23:56 Ordered Complete Blood Count w/Auto Q4H Lab 08/13/22 07:54 Results Complete Blood Count w/Auto Q4H Lab 08/13/22 11:59 Ordered Complete Blood Count w/Auto Q4H Lab 08/13/22 15:59 Ordered Complete Blood Count w/Auto Q4H Lab 08/13/22 19:59 Ordered Complete Blood Count w/Auto Q4H Lab 08/13/22 23:59 Ordered Complete Blood Count w/Auto Q4H Lab 08/14/22 03:59 Ordered Complete Blood Count w/Auto Q4H Lab 08/14/22 07:59 Ordered Complete Blood Count w/Auto Q4H Lab 08/14/22 11:59 Ordered Complete Blood Count w/Auto Q4H Lab 08/14/22 15:59 Ordered Complete Blood Count w/Auto Q4H Lab 08/14/22 19:59 Ordered Complete Blood Count w/Auto Q4H Lab 08/14/22 23:59 Ordered Radiology Impressions Chest X-Ray 08/12/22 10:13 IMPRESSION: No acute cardiopulmonary abnormality. Laboratory Results WBC 22.2 10^3/uL (4.0-10.0) H 08/13/22 03:30 RBC 4.23 10^6/uL (4.1-5.3) 08/13/22 03:30 Hgb 13.0 g/dL (11.7-16.6) 08/13/22 03:30 Hct 39.1 % (42.0-52.0) L 08/13/22 03:30 MCV 92.4 fl (80-94) 08/13/22 03:30 MCH 30.7 pg (28.0-34.0) 08/13/22 03:30 MCHC 33.2 g/dL (30.0-36.0) 08/13/22 03:30 RDW 12.6 % (12.1-15.1) 08/13/22 03:30 Plt Count 249 10^3/cmm (130-400) 08/13/22 03:30 MPV 11.0 fL (7.4-10.4) H 08/13/22 03:30 Neut % (Auto) 82.9 % 08/13/22 03:30 Lymph % (Auto) 10.6 % 08/13/22 03:30 [place] % (Auto) 5.1 % 08/13/22 03:30 Eos % (Auto) 0.0 % 08/13/22 03:30 Baso % (Auto) 0.3 % 08/13/22 03:30 Neut # (Auto) 18.41 10^3/uL (1.8-7.7) H 08/13/22 03:30 Lymph # (Auto) 2.4 10^3/uL (0.8-4.8) 08/13/22 03:30 [place] # (Auto) 1.1 10^3/uL (0.2-0.9) H 08/13/22 03:30 Eos # (Auto) 0.0 10^3/uL (0.0-0.8) 08/13/22 03:30 Baso # (Auto) 0.1 10^3/uL (0.0-0.1) 08/13/22 03:30 Nucleated RBC % (auto) 0 % 08/13/22 03:30 Nucleated RBCs # 0.0 /100WBC 08/13/22 03:30 Specimen Type Arterial 08/12/22 08:14 Sample Site Radial, right 08/12/22 08:14 ABG pH 7.06 (7.35-7.45) L* 08/12/22 08:14 ABG pCO2 10.1 mmHg (35-45) L* 08/12/22 08:14 ABG pO2 148.0 mmHg (80.0-100.0) H 08/12/22 08:14 ABG HCO3 2.8 mmol/L (22-26) L 08/12/22 08:14 ABG Base Excess -25.3 mmol/L (-2.0-2.0) L 08/12/22 08:14 [place]re[place] Test Pos 08/12/22 08:14 Hematocrit 40.8 % (42-52) L 08/12/22 08:14 O2 Delivery Device Room air 08/12/22 08:14 FiO2 21.0 % 08/12/22 08:14 Director [employer] ID [place] 08/12/22 08:14 Sodium 128 mmol/L (136-145) L 08/13/22 07:54 Potassium 3.2 mmol/L (3.5-5.1) L 08/13/22 07:54 Chloride 89 mmol/L (98-107) L 08/13/22 07:54 Carbon Dioxide 30 mmol/L (22-29) H 08/13/22 07:54 Anion Gap 12.2 (5-19) 08/13/22 07:54 BUN 18 mg/dL (6-20) 08/13/22 07:54 Creatinine 0.8 mg/dL (0.7-1.2) 08/13/22 07:54 GFR Calculation 117.8 mL/min (90-130) 08/13/22 07:54 Glucose 343 mg/dL (65-115) H 08/13/22 07:54 POC Glucose 374 mg/dL (70-110) H 08/12/22 17:44 Calculated Osmolality 281 mOsm/kg (285-295) L 08/13/22 07:54 Calcium 8.6 mg/dL (8.5-10.5) 08/13/22 07:54 Magnesium 1.6 mg/dL (1.7-2.3) L 08/13/22 03:30 Total Bilirubin 0.3 mg/dL (0.15-1.2) 08/12/22 08:05 AST 16 U/L (0-40) 08/12/22 08:05 ALT 28 U/L (0-41) 08/12/22 08:05 Alkaline Phosphatase 162 U/L (40-130) H 08/12/22 08:05 Total Protein 6.6 g/dL (6.6-8.7) 08/12/22 08:05 Albumin 4.0 g/dL (3.5-5.2) 08/12/22 08:05 Globulin 2.6 g/dL (1.3-4.6) 08/12/22 08:05 Lipase 8 U/L (13-60) L 08/12/22 08:05 Procalcitonin 1.58 ng/mL (0-0.5) H 08/12/22 08:05 TSH 0.25 uIU/mL (0.27-4.20) L 08/12/22 08:05 Urine Color Straw (Yellow) 08/12/22 09:50 Urine Appearance Clear (CLEAR) 08/12/22 09:50 Urine pH 5 (5-7) 08/12/22 09:50 Ur Specific [place] 1.015 (1.005-1.030) 08/12/22 09:50 Urine Protein Neg (Negative) 08/12/22 09:50 Urine Glucose (UA) 4+ (Normal) H 08/12/22 09:50 Urine Ketones 3+ (Negative) H 08/12/22 09:50 Urine Blood Neg (Negative) 08/12/22 09:50 Urine Nitrate Negative (Negative) 08/12/22 09:50 Urine Bilirubin Neg (Negative) 08/12/22 09:50 Urine Urobilinogen Norm mg/dL (Negative) 08/12/22 09:50 Ur Leukocyte Esterase Negative (Negative) 08/12/22 09:50 Urine Opiates Screen Negative ng/mL (Negative) 08/12/22 09:50 Ur Barbiturates Screen Negative ng/mL (Negative) 08/12/22 09:50 Ur Phencyclidine Scrn Negative ng/mL (Negative) 08/12/22 09:50 Ur Amphetamines Screen Positive ng/mL (Negative) H 08/12/22 09:50 U Benzodiazepines Scrn Negative ng/mL (Negative) 08/12/22 09:50 Urine Cocaine Screen Negative ng/mL (Negative) 08/12/22 09:50 U Marijuana (THC) Screen Negative ng/mL (Negative) 08/12/22 09:50 Vitals Last Vital Signs Temp 98.6 F 08/13/22 07:22 Pulse 109 H 08/13/22 08:15 Resp 15 08/13/22 08:15 BP 147/100 08/13/22 08:30 Pulse Ox 98 08/13/22 08:30 O2 Del Method 08/12/22 13:46 Discharge Plan Discharge Patient Disposition: Home Condition: Stable Prescriptions: New Magnesium Oxide [Magox] 400 mg PO BID Qty: 10 0RF potassium chloride 10 mEq tablet,ER particles/crystals 10 meq PO DAILY Qty: 5 0RF Continued (DME) blood-glucose meter [OneTouch Ultra2 Meter] Kit See Rx Instructions .Route Qty: 1 0RF Rx Instructions: To use TID to check blood sugar levels before taking insulin lisinopril 20 mg tablet 20 mg PO DAILY Qty: 60 3RF amlodipine 10 mg tablet 10 mg PO DAILY Qty: 90 2RF (DME) blood sugar diagnostic Strip See Rx Instructions .Route Qty: 300 3RF Rx Instructions: To use TID in onetouch meter to check blood sugar, 90 day supply Novolin R Flexpen 100 unit/mL (3 mL) insulin pen See Rx Instructions .ROUTE .COMPLEX Rx Instructions: subcutaneously per sliding scale Changed Levemir FlexTouch U-100 Insuln 100 unit/mL (3 mL) insulin pen 40 unit SUBCUT QPM Qty: 15 3RF Discharge Orders: Discharge Order (Routine); Ordered 08/13/22 Ordered By: Daniel Mosley Referrals: Peace Brothers MD [Primary Care Provider] - 4-7 days Discharge Diet: Diabetic Patient Instructions: Opioid Safety Discharge Attestations Time Spent in Discharge Care*: less than 30 min Status at Discharge: Cognitive status at discharge: cognitively intact, Behavioral status at discharge: cooperative, Quality Metrics Clinical Quality Measures [ No reported AMI, CVA or VTE this stay] Coding Level of Care Code Acute [facility] note Diagnoses DKA (diabetic ketoacidosis) E11.10 Amphetamine abuse F15.10
[2022-08-13] MEDS: potassium chloride ER 20 mEq Tablet 40 MEQ PO (09:24)
[2022-08-13] MEDS: magnesium oxide 400 mg tablet PO ×2 (09:24)
--- NOTE | 2022-08-13 10:03 | PC.NURSE ---
Patient to discharge around lunch time per Dr. Mosley. All discharge orders and instructions reviewed with patient. Patient verbalized understanding. All IVs removed. All prescriptions sent to preferred pharmacy per patient. All follow up appointments made and patient verbalized understanding of appointment times.
[2022-08-14 07:57] LABS: Glucose Point of Care 195 mg/dL (70-110)
[2022-08-14 07:57] LABS: Glucose Point of Care 172 mg/dL (70-110)
[2022-08-14 07:57] LABS: Glucose Point of Care 193 mg/dL (70-110)
[2022-08-14 07:57] LABS: Glucose Point of Care 308 mg/dL (70-110)
[2022-08-14 07:57] LABS: Glucose Point of Care 155 mg/dL (70-110)
[2022-08-14 07:57] LABS: Glucose Point of Care 198 mg/dL (70-110)
[2022-08-14 07:57] LABS: Glucose Point of Care 194 mg/dL (70-110)
[2022-08-14 07:57] LABS: Glucose Point of Care 219 mg/dL (70-110)
[2022-08-14 07:57] LABS: Glucose Point of Care 239 mg/dL (70-110)
== END 2022-08-13 11:46 | disposition home or self-care (01) | DRG 638 ==
LOC: ER 10:01 → ICU 10:21
PROVIDERS: Admitting Provider Internal Medicine; Emergency Provider Student in an Organized Health Care Education/Training Program; PCP Family Medicine; Visit Provider Internal Medicine
DX: E10.10 Type 1 diabetes mellitus with ketoacidosis without coma (principal); E87.1 Hypo-osmolality and hyponatremia; N17.9 Acute kidney failure, unspecified; E86.0 Dehydration; T38.3X6A Underdosing of insulin and oral hypoglycemic [antidiabetic] drugs, initial encounter; I10 Essential (primary) hypertension; F15.10 Other stimulant abuse, uncomplicated; F17.210 Nicotine dependence, cigarettes, uncomplicated; Z79.4 Long term (current) use of insulin; Z65.3 Problems related to other legal circumstances
CPT/HCPCS: 36415; 36416; 36600; 71045; 80048; 80053; 80306; 81003; 82803; 82962; 83690; 83735; 84145; 84443; 85025; 93005; 96365; 96366; 96367; 96372; 96375; 99291; 99292; J1644; J1815; J2405; J7030; J7050; J7070

== ENCOUNTER 2022-09-07 08:15 | Inpatient (IN) | payer MEDICAID, SELFPAY ==
[2022-09-07] VITALS (94 sets, daily range): BP systolic 103–167; BP diastolic 54–113; PULSE 104–139; RESP 10–40; TEMP 36.6–37.4; O2SAT 97–100; BMI 19.0
--- NOTE | 2022-09-07 08:28 | XR_ITS ---
WS: [id number] PORTABLE CHEST HISTORY: dyspnea/cough COMPARISON: 08/12/2022 Lungs are clear and well expanded. No pleural effusion or pneumothorax. Cardiac size: Normal. Mediastinum/Aorta: Normal mediastinum. No osseous abnormality seen. XR/XR chest 1V portable [id number] IMPRESSION: Unremarkable portable chest.
--- NOTE | 2022-09-07 08:28 | ECG_ITS ---
[facility] Test Date: 2022-09-07 Pat Name: Jean Miller Department: Room: Gender: Male [employer] Worker: : 1995 Requested By: Quincy Haley Order Number: [id number] Remy MD: Aime Calle M.D. Measurements Intervals [place] Rate: 120 P: 86 NV: 158 QRS: 66 QRSD: 97 T: 73 QT: 316 QTc: 447 Interpretive Statements SINUS TACHYCARDIA TALL T-WAVES, SUGGESTS HYPERKALEMIA Compared to ECG 08/12/2022 08:30:07 Myocardial infarct finding no longer present Electronically Signed On 09-07-2022 11:09:33 COMPLAINT ADJUSTER by Aime Calle M.D. [id number]
[2022-09-07 08:31] LABS: Glucose Point of Care > 600 mg/dL (70-110)
[2022-09-07] MEDS: sodium chloride 0.9% 1,000 ML 999 ML IV ×3 (08:37→09:02)
[2022-09-07] MEDS: ondansetron 2 mg/ML SDV 2 mL 4 MG IVP (08:39)
[2022-09-07 08:44] LABS: Basophils # 0.2 10^3/uL (0.0-0.1); Basophils % 0.5 %; Hematocrit 52.9 % (42.0-52.0); Hemoglobin 16.1 g/dL (11.7-16.6); Lymphocytes # 2.2 10^3/uL (0.8-4.8); Lymphocytes % 7.2 %; Mean Corpuscular HGB Conc 30.4 g/dL (30.0-36.0); Mean Corpuscular Hemoglobin 29.9 pg (28.0-34.0); Mean Corpuscular Volume 98.1 fl (80-94); Mean Platelet Volume 12.2 fL (7.4-10.4); Monocytes # 1.8 10^3/uL (0.2-0.9); Monocytes % 5.9 %; Neutrophils # 25.16 10^3/uL (1.8-7.7); Neutrophils % 84.4 %; Nucleated Red Blood Cells % 0 %; Platelet Count 421 10^3/cmm (130-400); Red Blood Count 5.39 10^6/uL (4.1-5.3); Red Cell Distribution Width 12.4 % (12.1-15.1); White Blood Count 29.8 10^3/uL (4.0-10.0)
[2022-09-07] MEDS: calcium chloride 10% Syr 10 mL 2 GM IVP (08:46)
[2022-09-07 08:47] LABS: Blood Gas Operator Identificat MONRO; Blood Gas Sample Site Brachial, left; Blood Gas Sample Type Arterial
[2022-09-07 08:49] LABS: Arterial Blood Gas Hematocrit 41.7 % (42-52); Base Excess ABG -24.8 mmol/L (-2.0-2.0); Carboxyhemoglobin 0.8 %THgb (0.4-20.1); Glucose Level-ABG > 1080.0 mg/dL (70-115); HCO3 ABG 2.6 mmol/L (22-26); HGB O2 Sat 97.2 % (95-100); Total Hemoglobin 13.6 g/dL (14-18)
[2022-09-07 08:50] LABS: Oxygen Device ROOM AIR
[2022-09-07 08:52] LABS: ABG PCO2 8.8 mmHg (35-45); ABG PH Result 7.09 (7.35-7.45)
[2022-09-07 08:53] LABS: Ketone (Acetest) Serum Positive (Negative)
[2022-09-07] MEDS: insulin regular-human 100 units/1 mL 15 UNIT IVP (08:56)
[2022-09-07 09:00] LABS: Alanine Aminotransferase 31 U/L (0-41); Albumin Level 4.1 g/dL (3.5-5.2); Alkaline Phosphatase 153 U/L (40-130); Aspartate Amino Transferase 12 U/L (0-40); Blood Urea Nitrogen 49 mg/dL (6-20); Calcium 9.5 mg/dL (8.5-10.5); Chloride 69 mmol/L (98-107); Globulin 2.7 g/dL (1.3-4.6); Glomerular Filtration Rate 28.9 mL/min (90-130); Magnesium 2.7 mg/dL (1.7-2.3); Potassium 6.2 mmol/L (3.5-5.1); Sodium 120 mmol/L (136-145); Total Bilirubin 0.4 mg/dL (0.15-1.2); Total Protein 6.8 g/dL (6.6-8.7)
[2022-09-07 09:09] LABS: Anion Gap 53.2 (5-19)
[2022-09-07 09:10] LABS: Osmolality Calculated 327 mOsm/kg (285-295)
[2022-09-07 09:11] LABS: Carbon Dioxide 4 mmol/L (22-29)
[2022-09-07 09:12] LABS: Glucose 1242 mg/dL (65-115); Phosphorus 13.1 mg/dL (2.5-4.5)
--- NOTE | 2022-09-07 09:31 | ED_ITS ---
HPI - General Adult General: Chief complaint: Altered Mental Status Stated complaint: High Blood Sugar Time Seen by Provider: 09/07/22 08:28 Source: patient Mode of arrival: EMS History of Present Illness: 27-year-old male presents emergency room with elevated blood sugars via EMS. He has a history of diabetes mellitus decreased level of consciousness. He is able to answer some questions for me tells me that his symptoms began about a day to day and a half ago his been very nauseous had some couple episodes of vomiting. Denies hematochezia melena hematemesis coffee-ground emesis no flulike symptoms cough or cold prior to the onset of symptoms. Onset (ago): day(s) Relieving factors: none Exacerbating factors: none Associated symptoms: Reports confusion, decreased appetite and nausea; Deny chest pain, cough, diaphoresis, dyspnea, fevers/chills, headache(s), malaise, rash, palpitations, seizures, short of breath, syncope, vomiting or weakness Treatments prior to arrival: none Review of Systems Const: Denies: fever(s), chills, fatigue, malaise or diaphoresis ENMT: Denies: throat pain, ear or mastoid pain, nasal discharge or nasal congestion Card: Denies: chest pain, palpitations or syncope Resp: Denies: dyspnea, productive cough, non-productive cough or wheezing GI: Reports: nausea; Denies: abdominal pain, vomiting, hematemesis or coffee ground emesis : Denies: flank pain, difficulty urinating, dysuria, urinary frequency or urinary urgency Musc: Denies: neck pain or back pain Skin/Breast: Denies: rash Neuro: Reports: confusion; Denies: headache(s) PFSH ED PFSH: Medical History Acute hyperkalemia MICHAEL (acute kidney injury) Amphetamine abuse Diabetes type 1, uncontrolled History of DKA DKA (diabetic ketoacidosis) DKA (diabetic ketoacidosis) DKA (diabetic ketoacidosis) High anion gap metabolic acidosis High anion gap metabolic acidosis Hyperkalemia Hyperkalemia Lactic acidosis Leukocytosis Leukocytosis Long-term insulin use Metabolic acidosis Pseudohyponatremia Pseudohyponatremia Psychiatric care Tachycardia Transaminitis Surgical History No history of previous surgery none known Family History Other Family history unknown Social History Smoking and tobacco status: current every day smoker cigarettes Packs smoked per day: 1 Alcohol intake: former Current occupational status: employed Physical Exam Const: GENERAL APPEARANCE: lethargic ORIENTATION/CONSCIOUSNESS: Yes awake and Yes lethargic HENMT: COMMON NORMALS: normocephalic, atraumatic and hearing grossly normal bilaterally HEAD & SCALP: normocephalic and atraumatic Resp: COMMON NORMALS: normal respiratory effort, No retractions, No use of accessory muscles and clear to auscultation bilaterally AUSCULTATION: clear to auscultation bilaterally Cardio: COMMON NORMALS: regular rate, regular rhythm and No murmurs present (Cardio) RATE: regular rate RHYTHM: regular rhythm GI: COMMON NORMALS: Soft to palpation and No hepatosplenomegaly present AUSCULTATION: Yes normoactive bowel sounds PALPATION: Yes Soft to palpation, No Tenderness to palpation present (GI), No Guarding due to palpation present (GI) and Yes No hepatosplenomegaly present Extremity: COMMON NORMALS: normal to inspection, capillary refill normal, no clubbing, cyanosis or edema, no calf tenderness and no pedal edema Neuro: SENSORIUM/ORIENTATION: Yes lethargic Skin: COMMON NORMALS: no rashes or lesions noted GENERAL SKIN EXAM: no rash es or lesions noted Course Vital Signs: Vital signs: Vital Signs Temperature 97.9 F 09/07/22 08:17 Pulse Rate 127 H 09/07/22 09:54 Respiratory Rate 30 H 09/07/22 09:54 Blood Pressure 142/91 09/07/22 09:54 Pulse Oximetry 100 09/07/22 09:54 Oxygen Delivery Me thod 09/07/22 09:54 [facility] - General Adult Medical Decision Making Acute DKA. Initially is T waves are markedly elevated on his EKG he is very concerned about him being severely hypokalemic initiate some hyperkalemic treatment and his serum potassium came back at 6.2. He has had fluids we have given initial dose of insulin on after his fourth bag of fluids we will start a insulin drip. Discussed with hospitalist orders written Medical Records I reviewed the patient's medical records. Lab Data I reviewed the patient's lab results. 09/07/22 08:37 09/07/22 08:37 Radiology Impressions Chest X-Ray 09/07/22 08:28 IMPRESSION: Unremarkable portable chest. Head CT 09/07/22 10:27 IMPRESSION: Negative head CT. Laboratory Results WBC 29.8 10^3/uL (4.0-10.0) H 09/07/22 08:37 RBC 5.39 10^6/uL (4.1-5.3) H 09/07/22 08:37 Hgb 16.1 g/dL (11.7-16.6) 09/07/22 08:37 Hct 52.9 % (42.0-52.0) H 09/07/22 08:37 MCV 98.1 fl (80-94) H 09/07/22 08:37 MCH 29.9 pg (28.0-34.0) 09/07/22 08:37 MCHC 30.4 g/dL (30.0-36.0) 09/07/22 08:37 RDW 12.4 % (12.1-15.1) 09/07/22 08:37 Plt Count 421 10^3/cmm (130-400) H 09/07/22 08:37 MPV 12.2 fL (7.4-10.4) H 09/07/22 08:37 Neut % (Auto) 84.4 % 09/07/22 08:37 Lymph % (Auto) 7.2 % 09/07/22 08:37 [place] % (Auto) 5.9 % 09/07/22 08:37 Eos % (Auto) 0.0 % 09/07/22 08:37 Baso % (Auto) 0.5 % 09/07/22 08:37 Neut # (Auto) 25.16 10^3/uL (1.8-7.7) H 09/07/22 08:37 Lymph # (Auto) 2.2 10^3/uL (0.8-4.8) 09/07/22 08:37 [place] # (Auto) 1.8 10^3/uL (0.2-0.9) H 09/07/22 08:37 Eos # (Auto) 0.0 10^3/uL (0.0-0.8) 09/07/22 08:37 Baso # (Auto) 0.2 10^3/uL (0.0-0.1) H 09/07/22 08:37 Nucleated RBC % (auto) 0 % 09/07/22 08:37 Nucleated RBCs # 0.0 /100WBC 09/07/22 08:37 Specimen Type Arterial 09/07/22 08:34 Sample Site Brachial, left 09/07/22 08:34 ABG pH 7.09 (7.35-7.45) L* 09/07/22 08:34 ABG pCO2 8.8 mmHg (35-45) L* 09/07/22 08:34 ABG pO2 150.0 mmHg (80.0-100.0) H 09/07/22 08:34 ABG HCO3 2.6 mmol/L (22-26) L 09/07/22 08:34 ABG O2 Saturation 99.0 09/07/22 08:34 ABG Base Excess -24.8 mmol/L (-2.0-2.0) L 09/07/22 08:34 [place]re[place] Test N/a 09/07/22 08:34 A-a O2 Gradient Not Reportable 09/07/22 08:34 Hematocrit 41.7 % (42-52) L 09/07/22 08:34 Hgb O2 Saturation 97.2 % (95-100) 09/07/22 08:34 Carboxyhemoglobin 0.8 %THgb (0.4-20.1) 09/07/22 08:34 Methemoglobin 1.0 % (0.4-1.5) 09/07/22 08:34 Total Hemoglobin 13.6 g/dL (14-18) L 09/07/22 08:34 Sodium 122.0 mmol/L (131-143) L 09/07/22 08:34 Potassium 6.0 mmol/L (3.5-5.0) H 09/07/22 08:34 Glucose > 1080.0 mg/dL (70-115) H 09/07/22 08:34 Ionized Calcium 1.0 mmol/L (1.1-1.4) L 09/07/22 08:34 O2 Delivery Device Room air 09/07/22 08:34 FiO2 21.0 % 09/07/22 08:34 Apprentice [employer] Director ID [place] 09/07/22 08:34 Sodium 120 mmol/L (136-145) L 09/07/22 08:37 Potassium 6.2 mmol/L (3.5-5.1) H 09/07/22 08:37 Chloride 69 mmol/L (98-107) L 09/07/22 08:37 Carbon Dioxide 4 mmol/L (22-29) L* 09/07/22 08:37 Anion Gap 53.2 (5-19) H 09/07/22 08:37 BUN 49 mg/dL (6-20) H 09/07/22 08:37 Creatinine 2.7 mg/dL (0.7-1.2) H 09/07/22 08:37 GFR Calculation 28.9 mL/min (90-130) L 09/07/22 08:37 Glucose 1242 mg/dL (65-115) H* 09/07/22 08:37 POC Glucose > 600 mg/dL (70-110) H* 09/07/22 10:00 Calculated Osmolality 327 mOsm/kg (285-295) H 09/07/22 08:37 Calcium 9.5 mg/dL (8.5-10.5) 09/07/22 08:37 Phosphorus 13.1 mg/dL (2.5-4.5) H* 09/07/22 08:37 Magnesium 2.7 mg/dL (1.7-2.3) H 09/07/22 08:37 Total Bilirubin 0.4 mg/dL (0.15-1.2) 09/07/22 08:37 AST 12 U/L (0-40) 09/07/22 08:37 ALT 31 U/L (0-41) 09/07/22 08:37 Alkaline Phosphatase 153 U/L (40-130) H 09/07/22 08:37 Creatine Kinase 31 U/L (39-308) L 09/07/22 08:37 Total Protein 6.8 g/dL (6.6-8.7) 09/07/22 08:37 Albumin 4.1 g/dL (3.5-5.2) 09/07/22 08:37 Globulin 2.7 g/dL (1.3-4.6) 09/07/22 08:37 Serum Ketones Positive (Negative) H 09/07/22 08:37 Critical Care Time Critical Care Time: Critical Care Time: Yes Total Critical Care Time: 45 Attestation: The high probability of a clinically significant, sudden or life threatening deterioration of the patient's cardiovascular/endocrine/DKA system(s) required my full and direct attention, intervention and personal management. The critical care time is as shown. This time is in addition to time spent performing any reported procedures but includes the following: [x] Data and vital sign review and interpretation [x] Patient assessment, examination and intervention [x] Documentation [x] Medication orders and management Discharge Plan Discharge Patient Disposition: Admitted As Inpatient Admit Provider: Lyndon Valera Clinical Impression: DKA (diabetic ketoacidosis) Condition: Stable Coding Level of Care Code ED [employer] for Jazmín Agosto
[2022-09-07 09:42] LABS: Creatine Phosphokinase 31 U/L (39-308)
--- NOTE | 2022-09-07 10:27 | CT_ITS ---
WS: [id number] CT HEAD NONCONTRAST HISTORY: Lethargy TECHNIQUE: Contiguous axial imaging performed through the brain in 2.5 mm imaging. Bone and soft tiss ue windows. Sagittal and coronal reformats reviewed. All CT scans at [facility] use at least one of these dose optimization techniques: automated exposure control; mA and/or kV adjustment per pa tient size (includes targeted exams where dose is matched to clinical indication); or iterative recon struction. DLP: 1083.58 mGy.cm COMPARISON: 03/06/2022 No acute intracranial hemorrhage, midline shift or mass effect. No atrophy or prior infarcts or herniation. Ventricles: Normal size with no hydrocephalus. No inferior displacement of the cerebellar tonsils. Paranasal sinuses: As visualized are clear. Mastoid air cells: Well pneumatized. Calvarium and scalp: Skull is intact with no soft tissue edema or swelling. CT/CT head wo con* [id number] IMPRESSION: Negative head CT.
[2022-09-07 10:29] LABS: Glucose Point of Care > 600 mg/dL (70-110)
--- NOTE | 2022-09-07 10:32 | PM.HP ---
Providers/Chief Complaint Primary Care Provider: Peace Brothers MD Chief Complaint: High Blood Sugar History of Present Illness 27-year-old gentleman with history of DM1, recurrent DKA, presented to ER due to malaise, nausea, several episodes of vomiting, in ER found to have glucose was too high to read on glucometer, chemistry glucose 1242. In DKA, sodium 120, potassium 6.2, bicarb 4, anion gap 33.2, BUN 49, creatinine 2.7. Phosphorus 30.1, magnesium 2.7. Alk phos 153. CK 31. Positive serum ketones. EKG with tall T waves. Sinus tachycardia. CBC with leukocytosis 29.8, hemoglobin 16.1. Platelets 421. Chest x-ray unremarkable. Saturating well on room air. Lethargic, wakes up to loud voice, shoulder touch, does not provide very good history, does state he missed insulin doses. States he normally takes insulin per sliding scale. Review of Systems Const: Reports: malaise; Denies: fever(s), chills or body aches Card: Denies: edema Resp: Denies: dyspnea, productive cough, change in phlegm color or hemoptysis GI: Reports: nausea; Denies: abdominal pain, diarrhea, constipation, hematochezia or melena : Denies: flank pain, difficulty urinating, urinary frequency or hematuria Musc: Denies: back pain, joint swelling or joint redness Skin/Breast: Denies: rash or new lesions Neuro: Denies: headache(s), numbness in extremities, weakness in extremities, dizziness, confusion or seizure-like activity Endo: Denies: polyuria or polydipsia Basim/Lymph: Denies: easy bleeding or tender lymph nodes All/Imm: Denies: urticaria or tongue swelling Medications/Allergies Home Medications Medication Instructions Recorded Confirmed Last Taken Type blood-glucose meter (OneTouch #1 ea 04/02/22 09/07/22 Unknown Rx Ultra2 Meter kit) blood sugar diagnostic #300 ea 05/12/22 09/07/22 Unknown Rx insulin regular human 100 unit/mL See Rx Instructions .Route .COMPLEX 06/12/22 09/07/22 Unknown History (3 mL) subcutaneous pen (Novolin R Flexpen) amlodipine 10 mg tablet 10 mg PO DAILY #90 tabs 07/19/22 09/07/22 Unknown Rx lisinopril 20 mg tablet 20 mg PO DAILY #60 tabs 07/19/22 09/07/22 Unknown Rx insulin detemir U-100 100 unit/mL 40 unit (0.4 mL) SUBCUT QPM #15 mL 08/13/22 09/07/22 Unknown Rx (3 mL) subcutaneous pen (Levemir FlexTouch U-100 Insulin) potassium chloride 10 mEq 10 meq PO DAILY #5 tabs 08/13/22 09/07/22 Unknown Rx tablet,extended release(part/cryst) insulin aspart U-100 100 unit/mL 10 unit SUBCUT TID 09/07/22 09/07/22 Unknown History (3 mL) subcutaneous pen (Novolog Flexpen U-100 Insulin aspart) insulin glargine 100 unit/mL (3 10 unit SUBCUT QPM 09/07/22 09/07/22 Unknown History mL) subcutaneous pen (Lantus Solostar U-100 Insulin) magnesium oxide-magnesium amino 1 cap PO BID 09/07/22 09/07/22 Unknown History acid chelate 300 mg capsule (Magnesium (oxide/AA chelate)) Allergies Allergy/AdvReac Type Severity Reaction Status Date / Time No Known Allergies Allergy Verified 09/07/22 08:58 PFSH Acute PFSH: Medical History (Updated 09/07/22 @ 11:15 by Iftikhar Soriano MD) Acute hyperkalemia MICHAEL (acute kidney injury) Amphetamine abuse Diabetes type 1, uncontrolled History of DKA DKA (diabetic ketoacidosis) DKA (diabetic ketoacidosis) DKA (diabetic ketoacidosis) High anion gap metabolic acidosis High anion gap metabolic acidosis Hyperkalemia Hyperkalemia Lactic acidosis Leukocytosis Leukocytosis Long-term insulin use Metabolic acidosis Pseudohyponatremia Pseudohyponatremia Psychiatric care Tachycardia Transaminitis Surgical History No history of previous surgery none known Family History Other Family history unknown Social History Smoking and tobacco status: current every day smoker cigarettes Packs smoked per day: 1 Alcohol intake: former Current occupational status: employed Vitals/I&O/Wt Last Vital Signs Temp 97.9 F 09/07/22 08:17 Pulse 127 H 09/07/22 09:54 Resp 30 H 09/07/22 09:54 BP 142/91 09/07/22 09:54 Pulse Ox 100 09/07/22 09:54 O2 Del Method 09/07/22 09:54 09/06/22 09/07/22 09/07/22 22:59 06:59 14:59 Intake Total 1000 / 1000 Balance 1000 / 1000 Weight last 48 hrs Weight 63.503 kg Physical Exam Const: GENERAL APPEARANCE: cooperative and lethargic HENMT: COMMON NORMALS: oropharynx normal OTHER: dry mm Neck/C-Spine: COMMON NORMALS: no JVD Resp: COMMON NORMALS: normal respiratory effort and clear to auscultation bilaterally AUSCULTATION: clear to auscultation bilaterally Cardio: COMMON NORMALS: no JVD, regular rhythm, S1 normal heart sound present, S2 normal heart sound present and No murmurs present (Cardio) RATE: tachycardic RHYTHM: regular rhythm HEART SOUNDS: S1 normal heart sound present and S2 normal heart sound present GI: COMMON NORMALS: Normal to inspection, nondistended, normoactive bowel sounds present, Soft to palpation and non-tender PALPATION: Yes Soft to palpation Extremity: COMMON NORMALS: no joint enlargement and no pedal edema Neuro: COMMON NORMALS: moves all extremities Skin: COMMON NORMALS: no rashes or lesions noted GENERAL SKIN EXAM: no rashes or lesions noted OTHER: Tattoos Data 09/07/22 08:37 09/07/22 08:37 A&P Assessment and plan (1) DKA (diabetic ketoacidosis): Received fluid boluses, started insulin drip, has high insulin requirement with very high glucose. He is also lethargic, consideration of possible HHS in addition to DKA. Continue NS at 200 mill per hour. Continue insulin drip. Target glucose 150-200. Reassess chemistry, magnesium, Phos. PPI. DVT prophylaxis with Lovenox and SCD. Telemetry monitoring. As he is lethargic will assess also head CT. Hyponatremia but corrected sodium is normal. Hyperkalemia will decrease with insulin infusion. Hyperphosphatemia as well. Otherwise chest x-ray unremarkable. Abdomen soft, nontender to palpation. Antiemetic as needed for nausea. Confirms that he has missed insulin doses. Appears to be likely the trigger. Obtain UA, UDS. Prior UDS positive for amphetamine, I do not see confirmatory test. (2) Acute encephalopathy: Acute metabolic encephalopathy secondary to DKA, severe hyperglycemia, possibility of HHS. As above. Additional assessment with head CT. Obtain UA, UDS. Plan DM1 Smoking addiction: Nicotine replacement Attestations Medical Necessity Statement*: Admission of over 2 midnights anticipated for assessment of management of DKA, acute encephalopathy. Coding Level of Care Code Acute Planer Setup Operator for [facility] Surendra Diagnoses DKA (diabetic ketoacidosis) E11.10 Acute encephalopathy G93.40
[2022-09-07] MEDS: pantoprazole 40 mg SDV IVP (11:40)
[2022-09-07] MEDS: sodium chloride 0.9% 1,000 ML 200 ML IV (11:40)
[2022-09-07] MEDS: enoxaparin 40 mg/0.4 mL Syringe SUBCUT (11:40)
[2022-09-07] MEDS: insulin regular-human 250 UNIT in sodium chloride 0.9% 250 ML 35.5 UNIT IV (12:02)
[2022-09-07 12:38] LABS: Blood Urea Nitrogen 41 mg/dL (6-20); Calcium 9.9 mg/dL (8.5-10.5); Chloride 94 mmol/L (98-107); Glomerular Filtration Rate 49.4 mL/min (90-130); Magnesium 2.3 mg/dL (1.7-2.3); Osmolality Calculated 313 mOsm/kg (285-295); Phosphorus 5.6 mg/dL (2.5-4.5); Sodium 130 mmol/L (136-145)
[2022-09-07 12:53] LABS: Carbon Dioxide 6 mmol/L (22-29); Glucose 682 mg/dL (65-115)
[2022-09-07 14:13] LABS: Glucose Point of Care 593 mg/dL (70-110)
[2022-09-07 14:13] LABS: Glucose Point of Care > 600 mg/dL (70-110)
[2022-09-07 14:22] LABS: Glucose Point of Care 366 mg/dL (70-110)
[2022-09-07 15:17] LABS: Glucose Point of Care 353 mg/dL (70-110)
[2022-09-07 16:26] LABS: Anion Gap 19.8 (5-19); Blood Urea Nitrogen 32 mg/dL (6-20); Calcium 9.6 mg/dL (8.5-10.5); Carbon Dioxide 16 mmol/L (22-29); Chloride 103 mmol/L (98-107); Glomerular Filtration Rate 67.3 mL/min (90-130); Glucose 224 mg/dL (65-115); Osmolality Calculated 294 mOsm/kg (285-295); Phosphorus 2.5 mg/dL (2.5-4.5); Potassium 3.8 mmol/L (3.5-5.1); Sodium 135 mmol/L (136-145)
[2022-09-07 16:37] LABS: Glucose Point of Care 95 mg/dL (70-110)
[2022-09-07] MEDS: dextrose 5%-sod chloride 0.45% 1,000 ML 200 ML IV (16:37)
[2022-09-07 17:01] LABS: Add Urine Microscopic? NO; Charge for UA Resulting for Rev
[2022-09-07 17:11] LABS: Bilirubin Urine Neg (Negative); Blood Urine Neg (Negative); Glucose Urine UA 4+ (Normal); Ketones Urine 2+ (Negative); Leukocyte Esterase Urine Negative (Negative); Nitrate Urine Negative (Negative); Protein Urine Neg (Negative); Urine Appearance Clear (CLEAR); Urine Color Yellow (Yellow); Urobilinogen Urine Norm (Negative); pH Urine 5 (5-7)
[2022-09-07 17:16] LABS: Amphetamines Screen Urine Positive (Negative); Barbiturates Screen Urine Negative (Negative); Benzodiazepines Screen Urine Negative (Negative); Cocaine Screen Urine Negative (Negative); Opiate Screen Urine Negative (Negative); PCP Screen Urine Negative (Negative); THC Screen Urine Negative (Negative)
[2022-09-07 17:44] LABS: Glucose Point of Care 278 mg/dL (70-110)
[2022-09-07] MEDS: dextrose 5%-ns 0.45% + KCl 10 1,000 ML 150 MEQ IV (18:44)
[2022-09-07 18:45] LABS: Glucose Point of Care 211 mg/dL (70-110)
[2022-09-07 20:12] LABS: Glucose Point of Care 170 mg/dL (70-110)
[2022-09-07 20:29] LABS: Anion Gap 11.7 (5-19); Blood Urea Nitrogen 26 mg/dL (6-20); Calcium 9.2 mg/dL (8.5-10.5); Carbon Dioxide 22 mmol/L (22-29); Chloride 103 mmol/L (98-107); Glomerular Filtration Rate 102.8 mL/min (90-130); Glucose 161 mg/dL (65-115); Magnesium 1.7 mg/dL (1.7-2.3); Osmolality Calculated 284 mOsm/kg (285-295); Potassium 3.7 mmol/L (3.5-5.1); Sodium 133 mmol/L (136-145)
[2022-09-07] MEDS: insulin glargine 100 units/1 mL 10 UNIT SUBCUT (21:06)
[2022-09-07 21:13] LABS: Glucose Point of Care 98 mg/dL (70-110)
[2022-09-07] MEDS: potassium chloride ER 20 mEq Tablet 40 MEQ PO (21:38)
[2022-09-07] MEDS: sodium chloride 0.9% 1,000 ML 100 ML IV (21:50)
--- NOTE | 2022-09-07 22:00 | PC.NURSE ---
Physician Communication At 2038, patient's anion gap resulted at 11.7 with a previous blood sugar of 170. Dr. Cr contacted and orders placed by physician for 10 units glargine, sliding insulin scale, 40 meq potassium PO once, and to D/C D5 1/2NS with KCL. See MAR for administration. At 2132, patient's blood pressure 162/111, with previous blood pressures ranging from 142-157 systolic and 102-[address] Cr notified; order recieved to monitor and notify if pressure becomes >180 systolic and >110 diastolic. Additional order for NS to administer at 100 ml/hr IV received. See MAR for initiation.
[2022-09-08] VITALS (60 sets, daily range): BP systolic 140–182; BP diastolic 90–118; PULSE 85–127; RESP 11–26; TEMP 36.6–37.4; O2SAT 97–100; BMI 19.0
[2022-09-08 04:27] LABS: Glucose Point of Care 103 mg/dL (70-110)
[2022-09-08 05:19] LABS: Basophils # 0.1 10^3/uL (0.0-0.1); Basophils % 0.3 %; Eosinophils % 0.1 %; Hematocrit 43.9 % (42.0-52.0); Hemoglobin 14.9 g/dL (11.7-16.6); Lymphocytes # 1.8 10^3/uL (0.8-4.8); Mean Corpuscular HGB Conc 33.9 g/dL (30.0-36.0); Mean Corpuscular Hemoglobin 29.9 pg (28.0-34.0); Mean Corpuscular Volume 88.2 fl (80-94); Mean Platelet Volume 11.4 fL (7.4-10.4); Monocytes # 1.3 10^3/uL (0.2-0.9); Monocytes % 6.4 %; Neutrophils # 16.79 10^3/uL (1.8-7.7); Neutrophils % 83.8 %; Nucleated Red Blood Cells % 0 %; Platelet Count 282 10^3/cmm (130-400); Red Blood Count 4.98 10^6/uL (4.1-5.3); Red Cell Distribution Width 12.7 % (12.1-15.1)
--- NOTE | 2022-09-08 05:23 | PC.NURSE ---
Blood pressure Patient's diastolic blood pressure maintaining >110 with the last three pressures 169/114, 157/114, and 163/112. Dr. Morales contacted and order received for 5 mg hydralazine IVP once. See MAR for administration.
[2022-09-08] MEDS: hyDRALAzine 20 mg/mL INJ 1 mL 5 MG IVP (05:40)
[2022-09-08 05:43] LABS: Alanine Aminotransferase 23 U/L (0-41); Albumin Level 3.4 g/dL (3.5-5.2); Alkaline Phosphatase 107 U/L (40-130); Aspartate Amino Transferase 17 U/L (0-40); Blood Urea Nitrogen 19 mg/dL (6-20); Calcium 9.2 mg/dL (8.5-10.5); Carbon Dioxide 21 mmol/L (22-29); Chloride 101 mmol/L (98-107); Creatinine Clr Calc Pharmacy 126.7855; Globulin 2.1 g/dL (1.3-4.6); Glomerular Filtration Rate 117.8 mL/min (90-130); Glucose 90 mg/dL (65-115); Magnesium 1.6 mg/dL (1.7-2.3); Osmolality Calculated 282 mOsm/kg (285-295); Phosphorus 2.6 mg/dL (2.5-4.5); Sodium 135 mmol/L (136-145); Total Bilirubin 0.4 mg/dL (0.15-1.2); Total Protein 5.5 g/dL (6.6-8.7)
[2022-09-08] MEDS: sodium chloride 0.9% 1,000 ML 100 ML IV (07:56)
[2022-09-08] MEDS: insulin lispro 100 unit/1 mL SUBCUT ×4 (08:00→21:26)
[2022-09-08 08:08] LABS: Glucose Point of Care 187 mg/dL (70-110)
[2022-09-08] MEDS: pantoprazole 40 mg SDV IVP (10:48)
[2022-09-08] MEDS: enoxaparin 40 mg/0.4 mL Syringe SUBCUT (10:48)
[2022-09-08] MEDS: carvedilol 6.25 mg Tablet PO ×2 (10:49→17:27)
[2022-09-08] MEDS: losartan 50 mg Tablet PO (10:49)
[2022-09-08 13:21] LABS: Glucose Point of Care 355 mg/dL (70-110)
[2022-09-08 13:59] LABS: Glucose Point of Care 352 mg/dL (70-110)
--- NOTE | 2022-09-08 14:27 | PC.NURSE ---
PT HAS HAD A DECENT SHIFT FOR THIS NURSE. PT HAS BEEN MORE ALERT TODAY. B/P HAVE BEEN ELEVATED. DR TREVINO NOTIFIED AND AWARE. PT TRANSFERRING TO THE FLOOR TODAY. REPORT CALLED TO RITA COREY ON MED SURG. PT SAFELY TRANSFERRED TO THE FLOOR BY THIS NURSE.
--- NOTE | 2022-09-08 16:21 | PM.PN ---
Subjective Subjective: Hospital course, labs appreciated. Overnight patient's anion gap had closed. Transitioned over to insulin sliding scale. On examination laying comfortably in bed. Blood pressures and heart rate still elevated. Denies any nausea, vomiting, headache. Vitals/I&O/Wt Last Vital Signs Temp 97.8 F 09/08/22 15:06 Pulse 104 H 09/08/22 15:06 Resp 16 09/08/22 15:06 BP 141/90 09/08/22 15:06 Pulse Ox 98 09/08/22 15:06 O2 Del Method 09/08/22 15:06 09/08/22 09/08/22 09/08/22 06:59 14:59 22:59 Intake Total 340 / 6324.232 2704.434 / 2704.434 Output Total 875 / 4425 2049 / 2049 Balance -535 / 1899.232 654.434 / 654.434 Weight last 48 hrs Weight 63.503 kg Weight 63.503 kg Physical Exam Const: GENERAL APPEARANCE: cooperative and lethargic ORIENTATION/CONSCIOUSNESS: Yes lethargic HENMT: COMMON NORMALS: oropharynx normal OTHER: dry mm Neck/C-Spine: COMMON NORMALS: no JVD Resp: COMMON NORMALS: normal respiratory effort and clear to auscultation bilaterally AUSCULTATION: clear to auscultation bilaterally Cardio: COMMON NORMALS: no JVD, regular rhythm, S1 normal heart sound present, S2 normal heart sound present and No murmurs present (Cardio) RATE: tachycardic RHYTHM: regular rhythm HEART SOUNDS: S1 normal heart sound present and S2 normal heart sound present GI: COMMON NORMALS: Normal to inspection, nondistended, normoactive bowel sounds present, Soft to palpation and non-tender PALPATION: Yes Soft to palpation Extremity: COMMON NORMALS: no joint enlargement and no pedal edema Neuro: COMMON NORMALS: moves all extremities SENSORIUM/ORIENTATION: Yes lethargic Skin: COMMON NORMALS: no rashes or lesions noted GENERAL SKIN EXAM: no rashes or lesions noted OTHER: Tattoos Data 09/08/22 03:45 09/08/22 03:45 A&P Assessment and plan (1) DKA (diabetic ketoacidosis): DKA resolved. Start on carb consistent cardiac diet. Continue with insulin sliding scale high-dose protocol. Lantus 10 units nightly. Continue normal saline 150 cc/h. Monitor sugars before meals and at bedtime. Reason for DKA most likely secondary to missing insulin doses while patient was under influence with amphetamines. Discussed in detail with patient regarding need to be on regular insulin going forward given her history of type 1 diabetes mellitus with history of DKA (2) Acute encephalopathy: Resolved. Most likely secondary to amphetamine abuse along with high anion gap metabolic acidosis secondary to severe DKA on admission. (3) Amphetamine abuse: Past history. Patient confirms use of amphetamines prior to admission. (4) Hypertension: Goal blood pressure less than 140/90 mmHg. Start on Coreg 6.25 twice daily, losartan 50 mg daily. Plan DM1 Smoking addiction: Nicotine replacement Transfer out of ICU to [facility]. Attestations Medical Necessity Statement*: Requires further hospitalization for management of resolving DKA and type 1 diabetes mellitus, amphetamine abuse, high blood pressure Time Spent in Patient Care: Greater than 35 minutes Coding Level of Care Code Acute Train Driver for Jazmín Agosto Diagnoses DKA (diabetic ketoacidosis) E11.10 Acute encephalopathy G93.40 Amphetamine abuse F15.10 Hypertension I10
[2022-09-08] MEDS: sodium chloride 0.9% 1,000 ML 150 ML IV ×2 (16:28→23:26)
[2022-09-08 17:03] LABS: Glucose Point of Care 169 mg/dL (70-110)
[2022-09-08 20:34] LABS: Glucose Point of Care 319 mg/dL (70-110)
[2022-09-08] MEDS: insulin glargine 100 units/1 mL 10 UNIT SUBCUT (21:24)
[2022-09-09] VITALS: BP 162/97; PULSE 102; RESP 17; TEMP 36.9; O2SAT 97
[2022-09-09 04:00] VITALS: BP 167/99; PULSE 93; RESP 17; TEMP 36.6; O2SAT 96
[2022-09-09] MEDS: sodium chloride 0.9% 1,000 ML 150 ML IV (05:11)
[2022-09-09 05:37] LABS: Basophils % 0.4 %; Eosinophils % 0.2 %; Hematocrit 39.7 % (42.0-52.0); Hemoglobin 12.9 g/dL (11.7-16.6); Lymphocytes # 1.4 10^3/uL (0.8-4.8); Lymphocytes % 16.2 %; Mean Corpuscular HGB Conc 32.5 g/dL (30.0-36.0); Mean Corpuscular Hemoglobin 29.6 pg (28.0-34.0); Mean Corpuscular Volume 91.1 fl (80-94); Mean Platelet Volume 11.4 fL (7.4-10.4); Monocytes # 0.8 10^3/uL (0.2-0.9); Monocytes % 9.1 %; Neutrophils # 6.58 10^3/uL (1.8-7.7); Neutrophils % 73.9 %; Nucleated Red Blood Cells % 0 %; Platelet Count 227 10^3/cmm (130-400); Red Blood Count 4.36 10^6/uL (4.1-5.3); Red Cell Distribution Width 12.2 % (12.1-15.1); White Blood Count 8.9 10^3/uL (4.0-10.0)
[2022-09-09 05:57] LABS: Alanine Aminotransferase 17 U/L (0-41); Albumin Level 2.8 g/dL (3.5-5.2); Alkaline Phosphatase 116 U/L (40-130); Anion Gap 10.5 (5-19); Aspartate Amino Transferase 11 U/L (0-40); Blood Urea Nitrogen 10 mg/dL (6-20); Calcium 8.3 mg/dL (8.5-10.5); Carbon Dioxide 27 mmol/L (22-29); Chloride 88 mmol/L (98-107); Globulin 2.2 g/dL (1.3-4.6); Glomerular Filtration Rate 202.6 mL/min (90-130); Glucose 322 mg/dL (65-115); Magnesium 1.6 mg/dL (1.7-2.3); Osmolality Calculated 265 mOsm/kg (285-295); Phosphorus 2.2 mg/dL (2.5-4.5); Potassium 3.5 mmol/L (3.5-5.1); Sodium 122 mmol/L (136-145); Total Bilirubin 0.3 mg/dL (0.15-1.2)
[2022-09-09 06:42] LABS: Glucose Point of Care 330 mg/dL (70-110)
[2022-09-09 08:00] VITALS: BP 155/99; PULSE 97; RESP 18; TEMP 36.6; O2SAT 96
[2022-09-09 08:53] VITALS: BP 155/99
[2022-09-09] MEDS: insulin lispro 100 unit/1 mL SUBCUT ×2 (08:53→12:26)
[2022-09-09] MEDS: carvedilol 6.25 mg Tablet PO (08:53)
[2022-09-09] MEDS: losartan 50 mg Tablet PO (08:53)
[2022-09-09] MEDS: nicotine 21 mg Patch 1 PATCH TRANSDERMA (10:33)
[2022-09-09 11:56] VITALS: BP 137/87; PULSE 107; RESP 20; TEMP 36.8; O2SAT 97
[2022-09-09 11:58] LABS: Glucose Point of Care 253 mg/dL (70-110)
[2022-09-09] MEDS: pantoprazole 40 mg SDV IVP (12:25)
[2022-09-09] MEDS: calcium chloride 10% Syr 10 mL 1 GM IVP (12:25)
[2022-09-09] MEDS: insulin glargine 100 units/1 mL 10 UNIT SUBCUT (12:26)
[2022-09-09] MEDS: enoxaparin 40 mg/0.4 mL Syringe SUBCUT (12:26)
[2022-09-09] MEDS: sodium chloride 0.9% 1,000 ML 75 ML IV (13:55)
--- NOTE | 2022-09-09 14:25 | P.DS_ITS ---
Discharge Providers Date of Admission: 09/07/22 10:34 Date of Discharge: September 09, 2022 Attending Provider at Admission: Lyndon Valera MD Attending Provider at Discharge: Jens River MD Primary Care Provider: Peace Brothers MD Diagnoses at Discharge Discharge Diagnosis (1) DKA (diabetic ketoacidosis): Status: Acute (2) Acute encephalopathy: Status: Acute (3) Amphetamine abuse: Status: Acute (4) Hypertension: Status: Acute Reason for Visit Reason for Visit: High Blood Sugar Brief History: History as per HPI: 27-year-old gentleman with history of DM1, recurrent DKA, presented to ER due to malaise, nausea, several episodes of vomiting, in ER found to have glucose was too high to read on glucometer, chemistry glucose 1242.? In DKA, sodium 120, potassium 6.2, bicarb 4, anion gap 33.2, BUN 49, creatinine 2.7.? Phosphorus 30.1, magnesium 2.7.? Alk phos 153.? CK 31.? Positive serum ketones.? EKG with tall T waves.? Sinus tachycardia.? CBC with leukocytosis 29.8, hemoglobin 16.1.? Platelets 421.? Chest x-ray unremarkable.? Saturating well on room air. Lethargic, wakes up to loud voice, shoulder touch, does not provide very good history, does state he missed insulin doses.? States he normally takes insulin per sliding scale. Hospital Course Hospital Course Patient will be to hospital further evaluation and management of diabetic ketoacidosis. Urine drug screen on admission was positive for methamphetamines. He was started on treatment as per DKA protocol in ICU. He responded well to the treatment and anion gap closed along with resolution of anion gap acidosis. During hospitalization patient was found to have uncontrolled hypertension for which antihypertensives were adjusted. Responded well to the treatment. He is been discharged in medically stable condition. He was counseled in detail to avoid amphetamines as much as possible. He is counseled in detail to continue using his insulins as before and to follow-up with endocrinology. He is also advised in detail to take his antihypertensives. Physical Exam Const: GENERAL APPEARANCE: cooperative and lethargic ORIENTATION/CONSCIOUSNESS: Yes lethargic HENMT: COMMON NORMALS: oropharynx normal OTHER: dry mm Neck/C-Spine: COMMON NORMALS: no JVD Resp: COMMON NORMALS: normal respiratory effort and clear to auscultation bilaterally AUSCULTATION: clear to auscultation bilaterally Cardio: COMMON NORMALS: no JVD, regular rhythm, S1 normal heart sound present, S2 normal heart sound present and No murmurs present (Cardio) RATE: tachycardic RHYTHM: regular rhythm HEART SOUNDS: S1 normal heart sound present and S2 normal heart sound present GI: COMMON NORMALS: Normal to inspection, nondistended, normoactive bowel sounds present, Soft to palpation and non-tender PALPATION: Yes Soft to palpation Extremity: COMMON NORMALS: no joint enlargement and no pedal edema Neuro: COMMON NORMALS: moves all extremities SENSORIUM/ORIENTATION: Yes lethargic Skin: COMMON NORMALS: no rashes or lesions noted GENERAL SKIN EXAM: no rashes or lesions noted OTHER: Tattoos Discharge Data Studies Completed and Pending Completed Studies During Hospitalization Category Date Time Status CT head wo con* [id number] Routine Cat Scan 09/07/22 10:27 Completed XR chest 1V portable [id number] Stat Exams 09/07/22 08:28 Completed Pending at discharge Category Date Time Status Amphetamine Confirmation, GC/M Routine Lab 09/07/22 10:01 Received Comprehensive Metabolic Panel AM LABS Lab 09/10/22 04:00 Ordered Magnesium AM LABS Lab 09/10/22 04:00 Ordered Phosphorus AM LABS Lab 09/10/22 04:00 Ordered Radiology Impressions Chest X-Ray 09/07/22 08:28 IMPRESSION: Unremarkable portable chest. Head CT 09/07/22 10:27 IMPRESSION: Negative head CT. Laboratory Results WBC 8.9 10^3/uL (4.0-10.0) 09/09/22 04:24 RBC 4.36 10^6/uL (4.1-5.3) 09/09/22 04:24 Hgb 12.9 g/dL (11.7-16.6) 09/09/22 04:24 Hct 39.7 % (42.0-52.0) L 09/09/22 04:24 MCV 91.1 fl (80-94) 09/09/22 04:24 MCH 29.6 pg (28.0-34.0) 09/09/22 04:24 MCHC 32.5 g/dL (30.0-36.0) 09/09/22 04:24 RDW 12.2 % (12.1-15.1) 09/09/22 04:24 Plt Count 227 10^3/cmm (130-400) 09/09/22 04:24 MPV 11.4 fL (7.4-10.4) H 09/09/22 04:24 Neut % (Auto) 73.9 % 09/09/22 04:24 Lymph % (Auto) 16.2 % 09/09/22 04:24 [place] % (Auto) 9.1 % 09/09/22 04:24 Eos % (Auto) 0.2 % 09/09/22 04:24 Baso % (Auto) 0.4 % 09/09/22 04:24 Neut # (Auto) 6.58 10^3/uL (1.8-7.7) 09/09/22 04:24 Lymph # (Auto) 1.4 10^3/uL (0.8-4.8) 09/09/22 04:24 [place] # (Auto) 0.8 10^3/uL (0.2-0.9) 09/09/22 04:24 Eos # (Auto) 0.0 10^3/uL (0.0-0.8) 09/09/22 04:24 Baso # (Auto) 0.0 10^3/uL (0.0-0.1) 09/09/22 04:24 Nucleated RBC % (auto) 0 % 09/09/22 04:24 Nucleated RBCs # 0.0 /100WBC 09/09/22 04:24 Specimen Type Arterial 09/07/22 08:34 Sample Site Brachial, left 09/07/22 08:34 ABG pH 7.09 (7.35-7.45) L* 09/07/22 08:34 ABG pCO2 8.8 mmHg (35-45) L* 09/07/22 08:34 ABG pO2 150.0 mmHg (80.0-100.0) H 09/07/22 08:34 ABG HCO3 2.6 mmol/L (22-26) L 09/07/22 08:34 ABG O2 Saturation 99.0 09/07/22 08:34 ABG Base Excess -24.8 mmol/L (-2.0-2.0) L 09/07/22 08:34 [place] Test N/a 09/07/22 08:34 A-a O2 Gradient Not Reportable 09/07/22 08:34 Hematocrit 41.7 % (42-52) L 09/07/22 08:34 Hgb O2 Saturation 97.2 % (95-100) 09/07/22 08:34 Carboxyhemoglobin 0.8 %THgb (0.4-20.1) 09/07/22 08:34 Methemoglobin 1.0 % (0.4-1.5) 09/07/22 08:34 Total Hemoglobin 13.6 g/dL (14-18) L 09/07/22 08:34 Sodium 122.0 mmol/L (131-143) L 09/07/22 08:34 Potassium 6.0 mmol/L (3.5-5.0) H 09/07/22 08:34 Glucose > 1080.0 mg/dL (70-115) H 09/07/22 08:34 Ionized Calcium 1.0 mmol/L (1.1-1.4) L 09/07/22 08:34 O2 Delivery Device Room air 09/07/22 08:34 FiO2 21.0 % 09/07/22 08:34 Mathematical Physicist ID [place] 09/07/22 08:34 Sodium 122 mmol/L (136-145) L 09/09/22 04:24 Potassium 3.5 mmol/L (3.5-5.1) 09/09/22 04:24 Chloride 88 mmol/L (98-107) L 09/09/22 04:24 Carbon Dioxide 27 mmol/L (22-29) 09/09/22 04:24 Anion Gap 10.5 (5-19) 09/09/22 04:24 BUN 10 mg/dL (6-20) 09/09/22 04:24 Creatinine 0.5 mg/dL (0.7-1.2) L 09/09/22 04:24 GFR Calculation 202.6 mL/min (90-130) H 09/09/22 04:24 Glucose 322 mg/dL (65-115) H 09/09/22 04:24 POC Glucose 253 mg/dL (70-110) H 09/09/22 11:17 Glucose 1 Hr Postprand Cancelled 09/07/22 11:03 Calculated Osmolality 265 mOsm/kg (285-295) L 09/09/22 04:24 Calcium 8.3 mg/dL (8.5-10.5) L 09/09/22 04:24 Phosphorus 2.2 mg/dL (2.5-4.5) L 09/09/22 04:24 Magnesium 1.6 mg/dL (1.7-2.3) L 09/09/22 04:24 Total Bilirubin 0.3 mg/dL (0.15-1.2) 09/09/22 04:24 AST 11 U/L (0-40) 09/09/22 04:24 ALT 17 U/L (0-41) 09/09/22 04:24 Alkaline Phosphatase 116 U/L (40-130) 09/09/22 04:24 Creatine Kinase 31 U/L (39-308) L 09/07/22 08:37 Total Protein 5.0 g/dL (6.6-8.7) L 09/09/22 04:24 Albumin 2.8 g/dL (3.5-5.2) L 09/09/22 04:24 Globulin 2.2 g/dL (1.3-4.6) 09/09/22 04:24 Urine Color Yellow (Yellow) 09/07/22 10:01 Urine Appearance Clear (CLEAR) 09/07/22 10:01 Urine pH 5 (5-7) 09/07/22 10:01 Ur Specific [place] 1.020 (1.005-1.030) 09/07/22 10:01 Urine Protein Neg (Negative) 09/07/22 10:01 Urine Glucose (UA) 4+ (Normal) H 09/07/22 10:01 Urine Ketones 2+ (Negative) H 09/07/22 10:01 Urine Blood Neg (Negative) 09/07/22 10:01 Urine Nitrate Negative (Negative) 09/07/22 10:01 Urine Bilirubin Neg (Negative) 09/07/22 10:01 Urine Urobilinogen Norm mg/dL (Negative) 09/07/22 10:01 Ur Leukocyte Esterase Negative (Negative) 09/07/22 10:01 Urine Opiates Screen Negative ng/mL (Negative) 09/07/22 10:01 Ur Barbiturates Screen Negative ng/mL (Negative) 09/07/22 10:01 Ur Phencyclidine Scrn Negative ng/mL (Negative) 09/07/22 10:01 Ur Amphetamines Screen Positive ng/mL (Negative) H 09/07/22 10:01 U Benzodiazepines Scrn Negative ng/mL (Negative) 09/07/22 10:01 Urine Cocaine Screen Negative ng/mL (Negative) 09/07/22 10:01 U Marijuana (THC) Screen Negative ng/mL (Negative) 09/07/22 10:01 Serum Ketones Positive (Negative) H 09/07/22 08:37 Vitals Last Vital Signs Temp 98.2 F 09/09/22 11:56 Pulse 107 H 09/09/22 11:56 Resp 20 H 09/09/22 11:56 BP 137/87 09/09/22 11:56 Pulse Ox 97 09/09/22 11:56 O2 Del Method 09/09/22 11:56 Discharge Plan Discharge Patient Disposition: Home Condition: Stable Prescriptions: New carvedilol 6.25 mg Tablet 6.25 mg PO BID 30 Days Qty: 60 0RF Continued (DME) blood-glucose meter [OneTouch Ultra2 Meter] Kit See Rx Instructions .Route Qty: 1 0RF Rx Instructions: To use TID to check blood sugar levels before taking insulin Magnesium (oxide/AA chelate) 300 mg Capsule 1 cap PO BID Novolog Flexpen U-100 Insulin 100 unit/mL (3 mL) insulin pen 10 unit SUBCUT TID Lantus Solostar U-100 Insulin 100 unit/mL (3 mL) insulin pen 10 unit SUBCUT QPM (DME) blood sugar diagnostic Strip See Rx Instructions .Route Qty: 300 3RF Rx Instructions: To use TID in onetouch meter to check blood sugar, 90 day supply Novolin R Flexpen 100 unit/mL (3 mL) insulin pen See Rx Instructions .ROUTE .COMPLEX Rx Instructions: subcutaneously per sliding scale potassium chloride 10 mEq tablet,ER particles/crystals 10 meq PO DAILY Qty: 5 0RF Levemir FlexTouch U-100 Insuln 100 unit/mL (3 mL) insulin pen 40 unit SUBCUT QPM Qty: 15 3RF lisinopril 20 mg tablet 20 mg PO DAILY Qty: 60 3RF Discontinued amlodipine 10 mg tablet 10 mg PO DAILY Qty: 90 2RF Discharge Orders: Discharge Order (Routine); Ordered 09/09/22 Ordered By: Jens River Referrals: Peace Brothers MD [Primary Care Provider] - 1 week (Please call Saturday morning to schedule hospital follow up appointment.) Elmer Jones MD [Physician] - 2 weeks Discharge Diet: Diabetic Discharge Activity: Resume usual activity and Increase activity as tolerated Patient Instructions: Carvedilol (By mouth), Diabetic Ketoacidosis (GEN), Opioid Safety Activity Restrictions/Additional Instructions: Please try to avoid using amphetamines as much as possible. Please continue to taking your insulins as before regularly. Please follow-up with endocrinology. Please take your antihypertensives as discussed in detail. Discharge Attestations Time Spent in Discharge Care*: greater than 30 min Specific Discharge Activities: educating patient, discussing with pcp/other providers, discussing with adult protective caseworker/social workers/dc planners, documenting/other paperwork and evaluating patient/reviewing data Status at Discharge: Cognitive status at discharge: cognitively intact , Behavioral status at discharge: cooperative , Functional status at discharge: independent ambulation , Overall status at discharge: patient is back to baseline Quality Metrics Clinical Quality Measures [ No reported AMI, CVA or VTE this stay] Coding Level of Care Code Acute Chg FW DC note Diagnoses DKA (diabetic ketoacidosis) E11.10 Acute encephalopathy G93.40 Amphetamine abuse F15.10 Hypertension I10
[2022-09-09 15:47] VITALS: BP 145/84; PULSE 92; RESP 18; TEMP 36.7; O2SAT 98
[2022-09-12 09:23] LABS: Amphetamine 370 ng/mL; Methamphetamine 2500 ng/mL; Methylenedioxyamphetamine negative; Methylenedioxyethylamphetamine negative; Methylenedioxymethamphetamine negative
--- NOTE | 2022-09-12 19:21 | PC.NURSE ---
Pt called ICU this evening to find out the names of the medications he was prescribed at discharge. He stated he lost his discharge papers. He has not been to pharmacy to get prescriptions yet per patient. Lisinopril and carvedilol were told as well as follow up appts with primary dr in 1 week and Acetaldehyde Converter Operator in 2 weeks as per Discharge orders. Pt was to make appts as he was discharged on Saturday
== END 2022-09-09 16:41 | disposition home or self-care (01) | DRG 637 ==
LOC: ER 09:51 → ICU 10:35 → MEDSURG 09-08 14:09
PROVIDERS: Internal Medicine; Admitting Provider Internal Medicine; Emergency Provider Family Medicine; PCP Family Medicine; Visit Provider Student in an Organized Health Care Education/Training Program
DX: E10.10 Type 1 diabetes mellitus with ketoacidosis without coma (principal); G93.41 Metabolic encephalopathy; N17.9 Acute kidney failure, unspecified; E87.1 Hypo-osmolality and hyponatremia; F17.210 Nicotine dependence, cigarettes, uncomplicated; F15.10 Other stimulant abuse, uncomplicated; E87.5 Hyperkalemia; T38.3X6A Underdosing of insulin and oral hypoglycemic [antidiabetic] drugs, initial encounter; Z91.128 Patient's intentional underdosing of medication regimen for other reason
CPT/HCPCS: 36415; 36416; 36600; 70450; 71045; 80048; 80051; 80053; 80306; 80324; 80359; 81003; 82009; 82330; 82550; 82805; 82962; 83735; 84100; 85025; 93005; 96365; 96366; 96372; 96375; 99285; C9113; J0360; J1650; J1815; J2405; J3475; J3490; J7030; J7050; J7799

== ENCOUNTER 2022-09-17 18:44 | Emergency (ER) | payer MEDICAID, SELFPAY ==
[2022-09-17 19:01] VITALS: BP 147/95; PULSE 140; RESP 15; TEMP 36.8; O2SAT 97; BMI 23.6
[2022-09-17 19:31] LABS: ABG PCO2 28.1 mmHg (35-45); ABG PH Result 7.38 (7.35-7.45); Arterial Blood Gas Hematocrit 54.5 % (42-52); Base Excess ABG -6.6 mmol/L (-2.0-2.0); Blood Gas Allen Test Pos; Blood Gas Operator Identificat WALCI; Blood Gas Sample Site Radial, left; Blood Gas Sample Type Arterial; HCO3 ABG 16.7 mmol/L (22-26); PO2 ABG 95.8 mmHg (80.0-100.0)
[2022-09-17 19:35] LABS: Glucose Point of Care 404 mg/dL (70-110)
[2022-09-17 19:37] LABS: Basophils % 0.4 %; Hematocrit 51.6 % (42.0-52.0); Hemoglobin 17.6 g/dL (11.7-16.6); Lymphocytes # 2.1 10^3/uL (0.8-4.8); Mean Corpuscular HGB Conc 34.1 g/dL (30.0-36.0); Mean Corpuscular Hemoglobin 29.6 pg (28.0-34.0); Mean Corpuscular Volume 86.9 fl (80-94); Mean Platelet Volume 9.8 fL (7.4-10.4); Monocytes # 0.6 10^3/uL (0.2-0.9); Monocytes % 5.8 %; Neutrophils # 8.18 10^3/uL (1.8-7.7); Neutrophils % 74.1 %; Nucleated Red Blood Cells % 0 %; Platelet Count 500 10^3/cmm (130-400); Red Blood Count 5.94 10^6/uL (4.1-5.3); Red Cell Distribution Width 12.4 % (12.1-15.1)
[2022-09-17] MEDS: sodium chloride 0.9% 1,000 ML 999 ML IV ×2 (19:40→20:13)
[2022-09-17 19:58] LABS: Ketone (Acetest) Serum Positive (Negative)
[2022-09-17] MEDS: insulin regular-human 100 units/1 mL 8 UNIT IVP (19:59)
[2022-09-17 20:00] VITALS: BP 149/114; PULSE 128; RESP 22; O2SAT 99
--- NOTE | 2022-09-17 20:03 | ED_ITS ---
HPI - General Adult General: Chief complaint: General Medical Stated complaint: HYPERGLYCEMIA Time Seen by Provider: 09/17/22 18:47 Source: patient and EMS Mode of arrival: EMS Limitations: no limitations History of Present Illness: 27-year-old male who has a history of type I diabetic patient has been noncompliant he has a history noncompliance he states that today he had checked his blood sugar was in the 400s he had some slight nausea denies any pain denies any worsening improving factors. Associated symptoms: Deny chest pain, dyspnea, headache(s), nausea, rash or vomiting Review of Systems Const: Denies: fever(s), chills, body aches or change in appetite Eyes: Denies: blurry vision or eye discomfort ENMT: Denies: throat pain or dental pain Card: Denies: chest pain Resp: Denies: dyspnea GI: Denies: abdominal pain, nausea, vomiting or diarrhea : Denies: dysuria Musc: Denies: neck pain or back pain Skin/Breast: Denies: rash Neuro: Denies: headache(s) Psych: Denies: depression Basim/Lymph: Denies: easy bruising All/Imm: Denies: urticaria PFSH ED PFSH: Medical History Acute hyperkalemia MICHAEL (acute kidney injury) Amphetamine abuse Diabetes type 1, uncontrolled History of DKA High anion gap metabolic acidosis Hyperkalemia Hypertension Lactic acidosis Leukocytosis Long-term insulin use Metabolic acidosis Pseudohyponatremia Psychiatric care Tachycardia Transaminitis Surgical History No history of previous surgery none known Family History Other Family history unknown Social History Smoking and tobacco status: current every day smoker cigarettes Packs smoked per day: 1 Alcohol intake: former Current occupational status: employed Physical Exam Const: COMMON NORMALS: patient oriented x3 HENMT: COMMON NORMALS: normocephalic and atraumatic HEAD & SCALP: normocephalic and atraumatic Eye: COMMON NORMALS: Equal, round and reactive pupils present and EOMs intact bilaterally PUPIL: Yes Equal, round and reactive pupils present Neck/C-Spine: COMMON NORMALS: full ROM and supple Chest: COMMONS NORMALS: normal inspection of the chest and normal palpation of entire chest wall Resp: COMMON NORMALS: normal respiratory effort, No retractions, No use of accessory muscles and clear to auscultation bilaterally AUSCULTATION: clear to auscultation bilaterally Cardio: COMMON NORMALS: regular rhythm and No murmurs present (Cardio) RATE: tachycardic RHYTHM: regular rhythm GI: COMMON NORMALS: Normal to inspection, nondistended, normoactive bowel sounds present, Soft to palpation, non-tender and no masses PALPATION: Yes Soft to palpation Extremity: COMMON NORMALS: normal to inspection and full ROM Neuro: COMMON NORMALS: patient oriented x3, moves all extremities and no focal motor deficits Psych: COMMON NORMALS: mental status grossly normal, Normal thought process present and cooperative THOUGHT PROCESS: Normal thought process present Skin: COMMON NORMALS: no rashes or lesions noted and no wounds GENERAL SKIN EXAM: no rashes or lesions noted Course Vital Signs: Vital signs: Vital Signs Temperature 98.2 F 09/17/22 19:01 Pulse Rate 120 H 09/17/22 22:00 Respiratory Rate 18 09/17/22 22:00 Blood Pressure 166/113 09/17/22 22:00 Pulse Oximetry 98 09/17/22 22:00 [facility] - General Adult Medical Decision Making Patient presents with hyperglycemia his blood sugar here is improved he did have slight anion gap on his initial electrolytes it is now close his pH is normal he is not in DKA he feels improved requesting discharge I feel he is stable for discharge at this time he is to follow-up with PCP and return if worsening. Lab Data 09/17/22 19:29 09/17/22 19: Laboratory Results WBC 11.0 10^3/uL (4.0-10.0) H 09/17/22: RBC 5.94 10^6/uL (4.1-5.3) H 09/17/22: Hgb 17.6 g/dL (11.7-16.6) H 09/17/22: Hct 51.6 % (42.0-52.0) 09/17/22: MCV 86.9 fl (80-94) 09/17/22 19: MCH 29.6 pg (28.0-34.0) 09/17/22: MCHC 34.1 g/dL (30.0-36.0) 09/17/22: RDW 12.4 % (12.1-15.1) 09/17/22: Plt Count 500 10^3/cmm (130-400) H 09/17/22: MPV 9.8 fL (7.4-10.4) 09/17/22: Neut % (Auto) 74.1 % 09/17/22: Lymph % (Auto) 19.0 % 09/17/22: [place] % (Auto) 5.8 % 09/17/22: Eos % (Auto) 0.0 % 09/17/22: Baso % (Auto) 0.4 % 09/17/22: Neut # (Auto) 8.18 10^3/uL (1.8-7.7) H 09/17/22: Lymph # (Auto) 2.1 10^3/uL (0.8-4.8) 09/17/22 19: [place] # (Auto) 0.6 10^3/uL (0.2-0.9) 09/17/22: Eos # (Auto) 0.0 10^3/uL (0.0-0.8) 09/17/22: Baso # (Auto) 0.0 10^3/uL (0.0-0.1) 09/17/22: Nucleated RBC % (auto) 0 % 09/17/22: Nucleated RBCs # 0.0 /100WBC 09/17/22: Specimen Type Arterial 09/17/22 19:20 Sample Site Radial, left 09/17/22 19:20 ABG pH 7.38 (7.35-7.45) 09/17/22: ABG pCO2 28.1 mmHg (35-45) L 09/17/22: ABG pO2 95.8 mmHg (80.0-100.0) 09/17/22: ABG HCO3 16.7 mmol/L (22-26) L 12/05/22 19:20 ABG Base Excess -6.6 mmol/L (-2.0-2.0) L 09/17/22 19:20 [place]re[place] Test Pos 09/17/22 19:20 Hematocrit 54.5 % (42-52) H 09/17/22 19:20 O2 Delivery Device None 09/17/22 19:20 FiO2 21.0 % 09/17/22 19:20 Collator Operator ID [place] 09/17/22 19:20 Sodium 132 mmol/L (136-145) L 09/17/22 21:36 Potassium 3.8 mmol/L (3.5-5.1) 09/17/22 21:36 Chloride 99 mmol/L (98-107) 09/17/22 21:36 Carbon Dioxide 20 mmol/L (22-29) L 09/17/22 21:36 Anion Gap 16.8 (5-19) 09/17/22 21:36 BUN 21 mg/dL (6-20) H 09/17/22 21:36 Creatinine 0.9 mg/dL (0.7-1.2) 09/17/22 21:36 GFR Calculation 102.8 mL/min (90-130) 09/17/22 21:36 Glucose 212 mg/dL (65-115) H 09/17/22 21:36 POC Glucose 283 mg/dL (70-110) H 09/17/22 20:48 Calculated Osmolality 283 mOsm/kg (285-295) L 09/17/22 21:36 Calcium 8.5 mg/dL (8.5-10.5) 09/17/22 21:36 Total Bilirubin 0.4 mg/dL (0.15-1.2) 09/17/22 19:29 AST 13 U/L (0-40) 09/17/22 19:29 ALT 36 U/L (0-41) 09/17/22 19:29 Alkaline Phosphatase 170 U/L (40-130) H 09/17/22 19:29 Total Protein 7.5 g/dL (6.6-8.7) 09/17/22 19:29 Albumin 4.1 g/dL (3.5-5.2) 09/17/22 19:29 Globulin 3.4 g/dL (1.3-4.6) 09/17/22 19:29 Serum Ketones Positive (Negative) H 09/17/22 19:29 Discharge Plan Discharge Patient Disposition: Home Clinical Impression: Hyperglycemia Condition: Stable Prescriptions: No Action (DME) blood-glucose meter [OneTouch Ultra2 Meter] Kit See Rx Instructions .Route Qty: 1 0RF Rx Instructions: To use TID to check blood sugar levels before taking insulin Magnesium (oxide/AA chelate) 300 mg Capsule 1 cap PO BID Novolog Flexpen U-100 Insulin 100 unit/mL (3 mL) insulin pen 10 unit SUBCUT TID Lantus Solostar U-100 Insulin 100 unit/mL (3 mL) insulin pen 10 unit SUBCUT QPM carvedilol 6.25 mg Tablet 6.25 mg PO BID 30 Days Qty: 60 0RF lisinopril 20 mg tablet 20 mg PO DAILY Qty: 60 3RF (DME) blood sugar diagnostic Strip See Rx Instructions .Route Qty: 300 3RF Rx Instructions: To use TID in onetouch meter to check blood sugar, 90 day supply Novolin R Flexpen 100 unit/mL (3 mL) insulin pen See Rx Instructions .ROUTE .COMPLEX Rx Instructions: subcutaneously per sliding scale potassium chloride 10 mEq tablet,ER particles/crystals 10 meq PO DAILY Qty: 5 0RF Levemir FlexTouch U-100 Insuln 100 unit/mL (3 mL) insulin pen 40 unit SUBCUT QPM Qty: 15 3RF Discharge Orders: Discharge ED (Routine); Ordered 09/17/22 Ordered By: Antolin Cerrato Referrals: Peace Brothers MD [Primary Care Provider] - 1-3 days Discharge Diet: Advance as tolerated Discharge Activity: Resume usual activity Patient Instructions: Diabetic Hyperglycemia (ED) Coding Level of Care Code ED Steam Station Supervisor for Chg Fwd Exam Comprehensive
[2022-09-17 20:09] LABS: Alanine Aminotransferase 36 U/L (0-41); Albumin Level 4.1 g/dL (3.5-5.2); Alkaline Phosphatase 170 U/L (40-130); Anion Gap 27.3 (5-19); Aspartate Amino Transferase 13 U/L (0-40); Blood Urea Nitrogen 26 mg/dL (6-20); Calcium 10.2 mg/dL (8.5-10.5); Carbon Dioxide 16 mmol/L (22-29); Chloride 89 mmol/L (98-107); Globulin 3.4 g/dL (1.3-4.6); Glomerular Filtration Rate 102.8 mL/min (90-130); Glucose 410 mg/dL (65-115); Osmolality Calculated 288 mOsm/kg (285-295); Potassium 4.3 mmol/L (3.5-5.1); Sodium 128 mmol/L (136-145); Total Bilirubin 0.4 mg/dL (0.15-1.2); Total Protein 7.5 g/dL (6.6-8.7)
[2022-09-17 20:52] LABS: Glucose Point of Care 283 mg/dL (70-110)
[2022-09-17 21:00] VITALS: BP 157/111; PULSE 111; RESP 22; O2SAT 98
[2022-09-17 21:58] LABS: Anion Gap 16.8 (5-19); Blood Urea Nitrogen 21 mg/dL (6-20); Calcium 8.5 mg/dL (8.5-10.5); Carbon Dioxide 20 mmol/L (22-29); Chloride 99 mmol/L (98-107); Glomerular Filtration Rate 102.8 mL/min (90-130); Glucose 212 mg/dL (65-115); Osmolality Calculated 283 mOsm/kg (285-295); Potassium 3.8 mmol/L (3.5-5.1); Sodium 132 mmol/L (136-145)
[2022-09-17 22:00] VITALS: BP 166/113; PULSE 120; RESP 18; O2SAT 98
[2022-09-17 23:10] VITALS: BP 152/108; PULSE 122; RESP 17; O2SAT 96
== END 2022-09-17 23:09 | disposition home or self-care (01) ==
PROVIDERS: Emergency Provider Emergency Medicine; PCP Family Medicine
DX: E11.65 Type 2 diabetes mellitus with hyperglycemia (principal); Z79.4 Long term (current) use of insulin; I10 Essential (primary) hypertension; F17.210 Nicotine dependence, cigarettes, uncomplicated
CPT/HCPCS: 36416; 36600; 80048; 80053; 82009; 82803; 82962; 85025; 96361; 96374; 99284; J1815; J7030

== ENCOUNTER 2022-10-11 13:45 | Inpatient (IN) | payer MEDICAID, SELFPAY ==
[2022-10-11] VITALS (38 sets, daily range): BP systolic 95–142; BP diastolic 56–99; PULSE 108–126; RESP 15–35; TEMP 36.4–37.2; O2SAT 92–100; BMI 20.7
--- NOTE | 2022-10-11 13:54 | XR_ITS ---
WS: [id number] Portable AP semiupright chest, 10/11/2022 Clinical Data: sob Comparison: Portable chest, 09/07/2022 Findings: No nodules, masses or effusions are seen. The heart is normal. The pulmonary vascularity is not increased. No pneumonia or pneumothorax is seen. Monitor leads are on the chest wall. XR/XR chest 1V portable [id number] Impression: Negative chest.
[2022-10-11 13:59] LABS: Glucose Point of Care > 600 mg/dL (70-110)
[2022-10-11 14:03] LABS: Basophils # 0.2 10^3/uL (0.0-0.1); Basophils % 0.6 %; Eosinophils % 0.1 %; Hematocrit 46.7 % (42.0-52.0); Hemoglobin 13.6 g/dL (11.7-16.6); Lymphocytes # 3.4 10^3/uL (0.8-4.8); Lymphocytes % 9.9 %; Mean Corpuscular HGB Conc 29.1 g/dL (30.0-36.0); Mean Corpuscular Hemoglobin 29.8 pg (28.0-34.0); Mean Corpuscular Volume 102.2 fl (80-94); Mean Platelet Volume 11.4 fL (7.4-10.4); Monocytes # 1.9 10^3/uL (0.2-0.9); Monocytes % 5.5 %; Neutrophils # 27.95 10^3/uL (1.8-7.7); Neutrophils % 81.5 %; Nucleated Red Blood Cells % 0.1 %; Platelet Count 391 10^3/cmm (130-400); Red Blood Count 4.57 10^6/uL (4.1-5.3); Red Cell Distribution Width 13.2 % (12.1-15.1)
[2022-10-11] MEDS: sodium chloride 0.9% 1,000 ML 999 ML IV ×2 (14:05→14:59)
[2022-10-11 14:07] LABS: Ketone (Acetest) Serum Positive (Negative)
[2022-10-11 14:11] LABS: White Blood Count 34.3 10^3/uL (4.0-10.0)
[2022-10-11 14:23] LABS: Alanine Aminotransferase 54 U/L (0-41); Albumin Level 3.4 g/dL (3.5-5.2); Alkaline Phosphatase 180 U/L (40-130); Aspartate Amino Transferase 22 U/L (0-40); Blood Urea Nitrogen 31 mg/dL (6-20); Calcium 8.9 mg/dL (8.5-10.5); Chloride 82 mmol/L (98-107); Globulin 2.2 g/dL (1.3-4.6); Glomerular Filtration Rate 40.9 mL/min (90-130); Magnesium 2.5 mg/dL (1.7-2.3); Sodium 125 mmol/L (136-145); Total Bilirubin 0.2 mg/dL (0.15-1.2); Total Protein 5.6 g/dL (6.6-8.7)
--- NOTE | 2022-10-11 14:27 | W.ED.AMS ---
HPI - Altered Mental Status General: Chief Complaint: Altered Mental Status Stated Complaint: DKA Time Seen by Provider: 10/11/22 13:46 History of Present Illness: Patient is brought in by EMS after his grandmother found him unresponsive on his bed. Patient is a history of type 1 diabetes. Upon arrival here the patient is tachycardic, tachypneic, and had a fruity odor to his breath. He has dry mucous membranes and poor perfusion peripherally. He mumbles in response to questions and does not appear to be oriented. Review of Systems General: Reports: ROS unobtainable due to mental status Const: Denies: fever(s) or body aches Eyes: Denies: change in vision or blurry vision ENMT: Denies: throat pain or odynophagia Card: Denies: chest pain or palpitations Resp: Denies: dyspnea or productive cough GI: Denies: abdominal pain, nausea or vomiting : Denies: flank pain or dysuria Musc: Denies: neck pain or back pain Skin/Breast: Denies: rash or pruritus Neuro: Reports: numbness in extremities and weakness in extremities; Denies: headache(s) Psych: Denies: anxiety or change in appetite Endo: Denies: polyuria or excessive sweating PFSH ED PFSH: Medical History Acute hyperkalemia MICHAEL (acute kidney injury) Amphetamine abuse Diabetes type 1, uncontrolled History of DKA High anion gap metabolic acidosis Hyperkalemia Hypertension Lactic acidosis Leukocytosis Long-term insulin use Metabolic acidosis Pseudohyponatremia Psychiatric care Tachycardia Transaminitis Surgical History No history of previous surgery none known Family History Other Family history unknown Social History Smoking and tobacco status: current every day smoker cigarettes Packs smoked per day: 1 Alcohol intake: former Current occupational status: employed Physical Exam Const: OTHER: Patient is obtunded HENMT: COMMON NORMALS: normocephalic and atraumatic HEAD & SCALP: normocephalic and atraumatic OTHER: Dry mucous membranes Eye: COMMON NORMALS: Equal, round and reactive pupils present and EOMs intact bilaterally PUPIL: Yes Equal, round and reactive pupils present Neck/C-Spine: COMMON NORMALS: full ROM and supple Resp: COMMON NORMALS: No retractions and No use of accessory muscles OTHER: Tachypnea, fruity odor to the breath Cardio: COMMON NORMALS: regular rhythm RHYTHM: regular rhythm OTHER: Tachycardia GI: OTHER: Soft nondistended, generalized mild tenderness to palpation Extremity: COMMON NORMALS: normal to inspection and full ROM Neuro: OTHER: Patient is obtunded Skin: OTHER: Multiple healing wounds to the backs of his hands Course Vital Signs: Vital signs: Vital Signs Temperature 97.6 F 10/11/22 13:46 Pulse Rate 118 H 10/11/22 13:46 Respiratory Rate 31 H 10/11/22 13:46 Blood Pressure 107/70 10/11/22 13:46 Pulse Oximetry 100 10/11/22 13:46 Oxygen Delivery Me thod 10/11/22 13:46 MDM - Altered Mental Status Medical Decision Making Patient is brought in by EMS after his grandmother found him unresponsive on his bed. Patient is a history of type 1 diabetes. Upon arrival here the patient is tachycardic, tachypneic, and had a fruity odor to his breath. He has dry mucous membranes and poor perfusion peripherally. He mumbles in response to questions and does not appear to be oriented. We will check labs, x-ray, give IV fluids, and reassess. on reassessment the pt is acidotic. Will start insulin drip, sodium bicarb, continue IV fluids. I discussed the case with the hospitalist, we will admit to the ICU for further work-up and treatment. Lab Data 10/11/22 13:56 10/11/22 13:56 Radiology Impressions Chest X-Ray 10/11/22 13:54 Impression: Negative chest. Laboratory Results WBC 34.3 10^3/uL (4.0-10.0) H* 10/11/22 13:56 RBC 4.57 10^6/uL (4.1-5.3) 10/11/22 13:56 Hgb 13.6 g/dL (11.7-16.6) 10/11/22 13:56 Hct 46.7 % (42.0-52.0) 10/11/22 13:56 MCV 102.2 fl (80-94) H 10/11/22 13:56 MCH 29.8 pg (28.0-34.0) 10/11/22 13:56 MCHC 29.1 g/dL (30.0-36.0) L 10/11/22 13:56 RDW 13.2 % (12.1-15.1) 10/11/22 13:56 Plt Count 391 10^3/cmm (130-400) 10/11/22 13:56 MPV 11.4 fL (7.4-10.4) H 10/11/22 13:56 Neut % (Auto) 81.5 % 10/11/22 13:56 Lymph % (Auto) 9.9 % 10/11/22 13:56 [place] % (Auto) 5.5 % 10/11/22 13:56 Eos % (Auto) 0.1 % 10/11/22 13:56 Baso % (Auto) 0.6 % 10/11/22 13:56 Neut # (Auto) 27.95 10^3/uL (1.8-7.7) H 10/11/22 13:56 Lymph # (Auto) 3.4 10^3/uL (0.8-4.8) 10/11/22 13:56 [place] # (Auto) 1.9 10^3/uL (0.2-0.9) H 10/11/22 13:56 Eos # (Auto) 0.0 10^3/uL (0.0-0.8) 10/11/22 13:56 Baso # (Auto) 0.2 10^3/uL (0.0-0.1) H 10/11/22 13:56 Nucleated RBC % (auto) 0.1 % 10/11/22 13:56 Nucleated RBCs # 0.0 /100WBC 10/11/22 13:56 Specimen Type Arterial 10/11/22 14:24 Sample Site Radial, right 10/11/22 14:24 ABG pH 6.91 (7.35-7.45) L* 10/11/22 14:24 ABG pCO2 < 15.4 mmHg (35-45) L* 10/11/22 14:24 ABG pO2 148.0 mmHg (80.0-100.0) H 10/11/22 14:24 [place]re[place] Test Pos 10/11/22 14:24 Hematocrit 41.9 % (42-52) L 10/11/22 14:24 O2 Delivery Device None 10/11/22 14:24 FiO2 21.0 % 10/11/22 14:24 Log Deck Tender ID Niesha 10/11/22 14:24 Sodium 125 mmol/L (136-145) L 10/11/22 13:56 Potassium 6.7 mmol/L (3.5-5.1) H* 10/11/22 13:56 Chloride 82 mmol/L (98-107) L 10/11/22 13:56 Carbon Dioxide 4 mmol/L (22-29) L* 10/11/22 13:56 Anion Gap 45.7 (5-19) H 10/11/22 13:56 BUN 31 mg/dL (6-20) H 10/11/22 13:56 Creatinine 2.0 mg/dL (0.7-1.2) H 10/11/22 13:56 GFR Calculation 40.9 mL/min (90-130) L 10/11/22 13:56 Glucose 1176 mg/dL (65-115) H* 10/11/22 13:56 POC Glucose > 600 mg/dL (70-110) H* 10/11/22 13:52 Calculated Osmolality 326 mOsm/kg (285-295) H 10/11/22 13:56 Lactate 7.0 mmol/L (0.5-2.2) H* 10/11/22 13:56 Calcium 8.9 mg/dL (8.5-10.5) 10/11/22 13:56 Magnesium 2.5 mg/dL (1.7-2.3) H 10/11/22 13:56 Total Bilirubin 0.2 mg/dL (0.15-1.2) 10/11/22 13:56 AST 22 U/L (0-40) 10/11/22 13:56 ALT 54 U/L (0-41) H 10/11/22 13:56 Alkaline Phosphatase 180 U/L (40-130) H 10/11/22 13:56 Total Protein 5.6 g/dL (6.6-8.7) L 10/11/22 13:56 Albumin 3.4 g/dL (3.5-5.2) L 10/11/22 13:56 Globulin 2.2 g/dL (1.3-4.6) 10/11/22 13:56 Salicylates < 0.3 mg/dL (3-10) L 10/11/22 13:56 Acetaminophen < 5.0 ug/mL (10-30) L 10/11/22 13:56 Ethyl Alcohol < 10 mg/dL (0-10) 10/11/22 13:56 Serum Ketones Positive (Negative) H 10/11/22 13:56 Critical Care Time Critical Care Time: Critical Care Time: Yes Total Critical Care Time: 75 Attestation: This case had a high probability of a clinically significant, sudden, or life threatening deterioration of this patient's condition which required my full and direct attention, intervention and personal management. Discharge Plan Discharge Patient Disposition: Admitted As Inpatient Clinical Impression: DKA (diabetic ketoacidosis) Condition: Stable Prescriptions: No Action (DME) blood-glucose meter [OneTouch Ultra2 Meter] Kit See Rx Instructions .Route Qty: 1 0RF Rx Instructions: To use TID to check blood sugar levels before taking insulin Magnesium (oxide/AA chelate) 300 mg Capsule 1 cap PO BID Novolog Flexpen U-100 Insulin 100 unit/mL (3 mL) insulin pen 10 unit SUBCUT TID Lantus Solostar U-100 Insulin 100 unit/mL (3 mL) insulin pen 10 unit SUBCUT QPM lisinopril 20 mg tablet 20 mg PO DAILY Qty: 60 3RF (DME) blood sugar diagnostic Strip See Rx Instructions .Route Qty: 300 3RF Rx Instructions: To use TID in onetouch meter to check blood sugar, 90 day supply Novolin R Flexpen 100 unit/mL (3 mL) insulin pen See Rx Instructions .ROUTE .COMPLEX Rx Instructions: subcutaneously per sliding scale potassium chloride 10 mEq tablet,ER particles/crystals 10 meq PO DAILY Qty: 5 0RF Levemir FlexTouch U-100 Insuln 100 unit/mL (3 mL) insulin pen 40 unit SUBCUT QPM Qty: 15 3RF Referrals: Peace Brothers MD [Primary Care Provider] - Coding Level of Care Code ED On Car Supervisor for Chg Fwd Exam Detailed
[2022-10-11 14:32] LABS: Anion Gap 45.7 (5-19); Osmolality Calculated 326 mOsm/kg (285-295)
[2022-10-11 14:35] LABS: Arterial Blood Gas Hematocrit 41.9 % (42-52); Blood Gas Allen Test Pos; Blood Gas Operator Identificat WALCI; Blood Gas Sample Site Radial, right; Blood Gas Sample Type Arterial
[2022-10-11 14:36] LABS: ABG PCO2 < 15.4 mmHg (35-45); ABG PH Result 6.91 (7.35-7.45)
[2022-10-11 14:37] LABS: Carbon Dioxide 4 mmol/L (22-29); Glucose 1176 mg/dL (65-115); Potassium 6.7 mmol/L (3.5-5.1)
[2022-10-11 14:38] LABS: Acetaminophen < 5.0 ug/mL (10-30); Alcohol Level < 10 mg/dL (0-10); Salicylate < 0.3 mg/dL (3-10)
--- NOTE | 2022-10-11 14:41 | PC.NURSE ---
notified dr. anne of lactic acid of 7.0, co2 of 4, glucose of 1176, and potassium of 6.7. he verbalized understanding no further orders.
--- NOTE | 2022-10-11 14:54 | PC.PHAR ---
PT UNABLE TO VERIFY MEDICATIONS DUE TO AMS - MEDICATIONS VERIFIED USING EXTERNAL MED LIST AND PHARMACY
[2022-10-11] MEDS: insulin regular-human 250 UNIT in sodium chloride 0.9% 250 ML 33.84 UNIT IV (15:16)
[2022-10-11] MEDS: sodium bicarbonate 50 MEQ in sodium chloride 0.45% 1,000 ML 100 MEQ IV (15:18)
[2022-10-11 15:53] LABS: Glucose Point of Care > 600 mg/dL (70-110)
[2022-10-11 15:53] LABS: Glucose Point of Care > 600 mg/dL (70-110)
[2022-10-11] MEDS: sodium chloride 0.9% 1,000 ML 150 ML IV (16:27)
[2022-10-11] MEDS: enoxaparin 40 mg/0.4 mL Syringe SUBCUT (16:27)
[2022-10-11 16:59] LABS: Blood Urea Nitrogen 31 mg/dL (6-20); Calcium 9.1 mg/dL (8.5-10.5); Chloride 91 mmol/L (98-107); Glomerular Filtration Rate 43.4 mL/min (90-130); Sodium 133 mmol/L (136-145)
[2022-10-11 17:06] LABS: Anion Gap 42.2 (5-19); Potassium 5.2 mmol/L (3.5-5.1)
[2022-10-11 17:07] LABS: Osmolality Calculated 330 mOsm/kg (285-295)
[2022-10-11 17:11] LABS: Glucose Point of Care > 600 mg/dL (70-110)
[2022-10-11 17:17] LABS: Carbon Dioxide 5 mmol/L (22-29); Glucose 953 mg/dL (65-115)
--- NOTE | 2022-10-11 17:35 | PM.HP ---
Providers/Chief Complaint Admitting Physician: Beatrice Chacon MD Primary Care Provider: Peace Brothers MD Chief Complaint: DKA History of Present Illness Jean Miller is a 27 year old male with a past medical history of diabetes mellitus, multiple admissions here in the past for DKA brought by EMS today after grandmother found him to be unresponsive on the bed. He is found to be in DKA again. He is currently altered, disoriented. ph 6.9/pco02 <15, po2 148, hco3 5. Glu 953 on arrival, lactate 7, cr 1.9. Review of Systems General: Reports: ROS unobtainable due to medical condition Medications/Allergies Home Medications Medication Instructions Recorded Confirmed Last Taken Type blood-glucose meter (OneTouch #1 ea 04/02/22 10/11/22 Unknown Rx Ultra2 Meter kit) blood sugar diagnostic #300 ea 05/12/22 10/11/22 Unknown Rx potassium chloride 10 mEq 10 meq PO DAILY #5 tabs 08/13/22 10/11/22 Unknown Rx tablet,extended release(part/cryst) insulin glargine 100 unit/mL (3 10 unit SUBCUT QPM 09/07/22 10/11/22 Unknown History mL) subcutaneous pen (Lantus Solostar U-100 Insulin) magnesium oxide-magnesium amino 1 cap PO BID 09/07/22 10/11/22 Unknown History acid chelate 300 mg capsule (Magnesium (oxide/AA chelate)) lisinopril 20 mg tablet 20 mg PO DAILY #60 tabs 09/09/22 10/11/22 Unknown Rx carvedilol 6.25 mg tablet 6.25 mg PO BID 10/11/22 10/11/22 Unknown History escitalopram oxalate 20 mg tablet 20 mg PO DAILY 10/11/22 10/11/22 Unknown History insulin aspart U-100 100 unit/mL 10 unit SUBCUT TID 10/11/22 10/11/22 Unknown History (3 mL) subcutaneous pen (Novolog Flexpen U-100 Insulin aspart) insulin detemir U-100 100 unit/mL 22 unit SUBCUT QPM 10/11/22 10/11/22 Unknown History (3 mL) subcutaneous pen (Levemir FlexTouch U-100 Insulin) Allergies Allergy/AdvReac Type Severity Reaction Status Date / Time No Known Allergies Allergy Verified 10/11/22 14:55 PFSH Acute PFSH: Medical History Acute hyperkalemia MICHAEL (acute kidney injury) Amphetamine abuse Diabetes type 1, uncontrolled History of DKA High anion gap metabolic acidosis Hyperkalemia Hypertension Lactic acidosis Leukocytosis Long-term insulin use Metabolic acidosis Pseudohyponatremia Psychiatric care Tachycardia Transaminitis Surgical History No history of previous surgery none known Family History Other Family history unknown Social History Smoking and tobacco status: current every day smoker cigarettes Packs smoked per day: 1 Alcohol intake: former Current occupational status: employed Vitals/I&O/Wt Last Vital Signs Temp 97.6 F 10/11/22 13:46 Pulse 117 H 10/11/22 16:00 Resp 22 H 10/11/22 16:00 BP 124/99 10/11/22 16:00 Pulse Ox 100 10/11/22 16:00 O2 Del Method 10/11/22 16:00 10/11/22 10/11/22 10/11/22 06:59 14:59 22:59 Intake Total 1000 / 1000 1000 / 2000 Balance 1000 / 1000 1000 / 2000 Weight last 48 hrs Weight 63.503 kg Physical Exam Narrative: General:, disoriented , lethargic HEENT: PERRLA, pupils bilaterally equal and reactive, pallors not present Chest: Normal vesicular breath sounds, no added sounds, equal good air entry bilaterally CVS: S1-S2 regular, no murmurs, no tachycardia, no gallops, no rubs Abdomen: Soft, nontender, no organomegaly, bowel sounds present Neuro: lethargic, disoriented Data 10/11/22 13:56 10/11/22 16:28 Micro: Microbiology 10/11/22 14:54 Blood Culture - Preliminary Blood SPECIMEN COLLECTED 10/11/22 14:47 Blood Culture - Preliminary Blood SPECIMEN COLLECTED A&P Assessment and plan (1) DKA (diabetic ketoacidosis): Diabetic ketoacidosis: Start patient on insulin drip as per DKA/HHS protocol with target blood sugars between 100-140 normal saline at 75 cc/h. We will switch to D5 NS once blood sugar less than 250. Monitor BMP every 6 hours. Once potassium less than 4 we will add 20 mg of potassium to IV fluids. Monitor saturations. Maintain over 90%. currently maintaining airway Transition to sliding scale and long-acting insulin once anion gap resolves. Attestations Medical Necessity Statement*: > 2midnight admission anticipated for DKA care, closing anion gapp Coding Level of Care Code Acute Riding Instructor for [facility] Fwd Diagnoses DKA (diabetic ketoacidosis) E11.10
[2022-10-11 17:38] LABS: Amphetamines Screen Urine Positive (Negative); Barbiturates Screen Urine Negative (Negative); Benzodiazepines Screen Urine Negative (Negative); Cocaine Screen Urine Negative (Negative); Opiate Screen Urine Negative (Negative); PCP Screen Urine Negative (Negative); THC Screen Urine Negative (Negative)
[2022-10-11 17:40] LABS: Add Urine Microscopic? YES; Bilirubin Urine Neg (Negative); Blood Urine Neg (Negative); Glucose Urine UA 4+ (Normal); Ketones Urine 3+ (Negative); Leukocyte Esterase Urine Negative (Negative); Nitrate Urine Negative (Negative); Protein Urine Trace (Negative); Urine Appearance Clear (CLEAR); Urine Color Yellow (Yellow); Urobilinogen Urine Norm (Negative); pH Urine 5 (5-7)
[2022-10-11 17:41] LABS: RBC Urine RARE /hpf (0-2); WBC Urine 0-4 /hpf (0-5)
[2022-10-11 17:42] LABS: Bacteria Urine TRACE /hpf; Mucus Urine 1+ /hpf; Squamous Epithelial Cell Urine 0-4 /hpf (0-5)
[2022-10-11 17:43] LABS: Hyaline Casts Urine 0-4 /lpf
[2022-10-11 18:46] LABS: ABG PH Result 7.29 (7.35-7.45); Arterial Blood Gas Hematocrit 44.2 % (42-52); Base Excess ABG -18.6 mmol/L (-2.0-2.0); Blood Gas Allen Test Pos; Blood Gas Operator Identificat MONRO; Blood Gas Sample Site Radial, left; Blood Gas Sample Type Arterial; HCO3 ABG 4.8 mmol/L (22-26); Oxygen Device ROOM AIR
[2022-10-11 18:46] LABS: Glucose Point of Care 525 mg/dL (70-110)
[2022-10-11 19:42] LABS: Glucose Point of Care 405 mg/dL (70-110)
[2022-10-11 20:45] LABS: Glucose Point of Care 163 mg/dL (70-110)
[2022-10-11 20:45] LABS: Glucose Point of Care 179 mg/dL (70-110)
--- NOTE | 2022-10-11 20:45 | PC.NURSE ---
Blood Glucose At 2034, patient's blood glucose level 179. No current maintenance fluid with dextrose ordered. Dr. Cr contacted and the following orders received: draw the 0915 bmp now, stop NS, decrease existing sodium bicarb drip from 100 to 50 ml/hr, and initiate D5 1/2NS at 125 ml/hr IV continuous. See MAR for details.
[2022-10-11] MEDS: dextrose 5%-sod chloride 0.45% 1,000 ML 125 ML IV (20:59)
[2022-10-11 21:36] LABS: Glucose Point of Care 120 mg/dL (70-110)
[2022-10-11 21:44] LABS: Anion Gap 19.3 (5-19); Blood Urea Nitrogen 23 mg/dL (6-20); Calcium 8.4 mg/dL (8.5-10.5); Carbon Dioxide 16 mmol/L (22-29); Chloride 111 mmol/L (98-107); Glucose 140 mg/dL (65-115); Osmolality Calculated 302 mOsm/kg (285-295); Potassium 3.3 mmol/L (3.5-5.1); Sodium 143 mmol/L (136-145)
--- NOTE | 2022-10-11 22:40 | PC.NURSE ---
Physician Communication At 2200, patient's anion gap 19.3 and his potassium level 3.3. Dr. Cr notified; telephone order received to hold bicarb drip and insulin drip, obtain a BMP at 0000, stop D5 1/2NS, initiate D5 1/2 NS with 20 meq kcl at 125 ml/hr, administer 20 meq KCL PO once now, and 40 meq KCL IV once at 25 ml/hr. While still in contact with Dr. Cr, secondary verification received to administer 20 meq kcl PO once, administer 40 meq kcl IV once for a total of 60 meq, and to initiate D5 1/2 NS with 20 meq KCL. No orders received for alternative insulin route for following D/c of insulin drip. Inquiry made to Dr. Cr regarding subq insulin. Verification received that no insulin should be administered prior to stopping insulin drip due to potassium level. See MAR for details.
[2022-10-11] MEDS: D5-NS 0.45% + KCL 20 mEq 20 MEQ/1,000 ML BAG 125 MEQ IV (22:41)
[2022-10-11] MEDS: lidocaine 1% 5 ML in potassium chloride premix 100 ML 25 ML IV (22:48)
[2022-10-11] MEDS: potassium chloride ER 20 mEq Tablet PO (22:51)
[2022-10-11 23:20] LABS: ABG PCO2 34.2 mmHg (35-45); ABG PH Result 7.38 (7.35-7.45); Arterial Blood Gas Hematocrit 39.7 % (42-52); Base Excess ABG -3.9 mmol/L (-2.0-2.0); Blood Gas Allen Test Pos; Blood Gas Operator Identificat JB; Blood Gas Sample Site Radial, right; Blood Gas Sample Type Arterial; HCO3 ABG 20.4 mmol/L (22-26); Oxygen Device ROOM AIR; PO2 ABG 91.4 mmHg (80.0-100.0)
[2022-10-11 23:22] LABS: Glucose Point of Care 105 mg/dL (70-110)
[2022-10-12] VITALS (20 sets, daily range): BP systolic 123–161; BP diastolic 76–105; PULSE 110–124; RESP 16–28; TEMP 36.9–37.6; O2SAT 95–99; BMI 19.0
[2022-10-12 00:13] LABS: Glucose Point of Care 216 mg/dL (70-110)
[2022-10-12 01:08] LABS: Glucose Point of Care 235 mg/dL (70-110)
[2022-10-12 01:10] LABS: Anion Gap 17.3 (5-19); Blood Urea Nitrogen 21 mg/dL (6-20); Calcium 8.6 mg/dL (8.5-10.5); Carbon Dioxide 17 mmol/L (22-29); Chloride 107 mmol/L (98-107); Glucose 192 mg/dL (65-115); Osmolality Calculated 292 mOsm/kg (285-295); Potassium 4.3 mmol/L (3.5-5.1); Sodium 137 mmol/L (136-145)
[2022-10-12] MEDS: potassium chloride ER 20 mEq Tablet 40 MEQ PO (02:09)
[2022-10-12 02:13] LABS: Glucose Point of Care 349 mg/dL (70-110)
--- NOTE | 2022-10-12 02:28 | PC.NURSE ---
Insulin Drip Patient's potassium level resulted at 4.3 while patient's blood sugar is increasing into the 230s. Dr. Cr contacted and order received to restart insulin drip per protocol. See MAR for details.
[2022-10-12 03:04] LABS: Glucose Point of Care 325 mg/dL (70-110)
[2022-10-12 04:06] LABS: Glucose Point of Care 281 mg/dL (70-110)
[2022-10-12 05:07] LABS: Glucose Point of Care 158 mg/dL (70-110)
[2022-10-12 05:37] LABS: Basophils % 0.2 %; Hematocrit 39.8 % (42.0-52.0); Hemoglobin 13.4 g/dL (11.7-16.6); Lymphocytes # 2.9 10^3/uL (0.8-4.8); Lymphocytes % 13.9 %; Mean Corpuscular Hemoglobin 29.5 pg (28.0-34.0); Mean Platelet Volume 10.8 fL (7.4-10.4); Monocytes # 1.2 10^3/uL (0.2-0.9); Monocytes % 5.5 %; Neutrophils # 16.68 10^3/uL (1.8-7.7); Neutrophils % 79.7 %; Nucleated Red Blood Cells % 0 %; Platelet Count 284 10^3/cmm (130-400); Red Blood Count 4.54 10^6/uL (4.1-5.3); Red Cell Distribution Width 13.2 % (12.1-15.1); White Blood Count 20.9 10^3/uL (4.0-10.0)
[2022-10-12 05:38] LABS: Mean Corpuscular HGB Conc 33.7 g/dL (30.0-36.0); Mean Corpuscular Volume 87.7 fl (80-94)
[2022-10-12 05:52] LABS: ABG PCO2 36.3 mmHg (35-45); Arterial Blood Gas Hematocrit 41.3 % (42-52); Base Excess ABG -1.6 mmol/L (-2.0-2.0); Blood Gas Allen Test Pos; Blood Gas Operator Identificat JB; Blood Gas Sample Site Radial, right; Blood Gas Sample Type Arterial; HCO3 ABG 22.7 mmol/L (22-26); Oxygen Device ROOM AIR; PO2 ABG 58.4 mmHg (80.0-100.0)
[2022-10-12 05:54] LABS: Anion Gap 15.1 (5-19); Blood Urea Nitrogen 16 mg/dL (6-20); Calcium 8.5 mg/dL (8.5-10.5); Carbon Dioxide 20 mmol/L (22-29); Chloride 106 mmol/L (98-107); Glomerular Filtration Rate 117.8 mL/min (90-130); Glucose 167 mg/dL (65-115); Osmolality Calculated 289 mOsm/kg (285-295); Potassium 4.1 mmol/L (3.5-5.1); Sodium 137 mmol/L (136-145)
[2022-10-12 06:10] LABS: Glucose Point of Care 117 mg/dL (70-110)
[2022-10-12] MEDS: D5-NS 0.45% + KCL 20 mEq 20 MEQ/1,000 ML BAG 125 MEQ IV (06:22)
[2022-10-12] MEDS: potassium chloride ER 20 mEq Tablet PO (06:22)
[2022-10-12 07:22] LABS: Glucose Point of Care 113 mg/dL (70-110)
[2022-10-12] MEDS: pantoprazole 40 mg SDV IVP (08:05)
[2022-10-12 08:08] LABS: Anion Gap 12.6 (5-19); Blood Urea Nitrogen 15 mg/dL (6-20); Calcium 8.5 mg/dL (8.5-10.5); Carbon Dioxide 22 mmol/L (22-29); Chloride 105 mmol/L (98-107); Glomerular Filtration Rate 137.4 mL/min (90-130); Glucose 90 mg/dL (65-115); Osmolality Calculated 280 mOsm/kg (285-295); Potassium 4.6 mmol/L (3.5-5.1); Sodium 135 mmol/L (136-145)
[2022-10-12 09:15] LABS: Glucose Point of Care 95 mg/dL (70-110)
[2022-10-12] MEDS: insulin glargine 100 units/1 mL 10 UNIT SUBCUT (10:23)
[2022-10-12 10:25] LABS: Glucose Point of Care 88 mg/dL (70-110)
--- NOTE | 2022-10-12 10:30 | PC.CHAP ---
Pastoral Care Encounter/Spiritual Assessment Type of Contact [] Declined search engine optimization consultant visit [] Patient/Family/Request visit [] Outpatient visit [] Follow-up visit [] Physician referral [] Code/Alert [x] Routine visit [] Staff referral [] Actively dying [x] Patient sleeping [] Family support [] [] Out of room [] Palliative care [] [] Receiving care in room [] Pre-surgical visit [] Trauma [] Long length of stay [] ICU visit [] Other: Relational/Emotional Strength [] Patient feels connected with others/family/visitors/staff [] Distress [] Loneliness/isolation [] Abandonment Spirituality of Patient [] Person of Lea [] Attends Pentecostalism of their [place]a [] Believes in Prayer [] Reads Bible or Evangelical materials [] There are Spiritual issues to be addressed Press Loader Interventions [] Prayer [] Active listening [] Non-anxious presence [] Spiritual/emotional support [] Crisis/trauma care [] Spiritual counseling [] Bereavement support [] Provided bereavement packet [] Provided Bible/devotional materials [] Provided toy/stuffed animal, coloring book to patient or family member [] Provided Communion [] Anointing/[place] [] Salvation [] Completed spiritual assessment [] Other: Impact on Illness or Injury [] Angry [] Fearful [] Anxious [] Often cries [] Exhaustion [] Unable to work [] Unable to attend sikh [] Unable to walk/stand [] Unable to read [] Unable to drive [] Unable to eat/drink [] Unable to sleep [] Unable to be with family [] Patient intubated [] Other: Summary Time spent with patient
[2022-10-12 11:37] LABS: Glucose Point of Care 228 mg/dL (70-110)
[2022-10-12] MEDS: insulin lispro 100 unit/1 mL SUBCUT (11:38)
--- NOTE | 2022-10-12 12:23 | PM.DCS ---
Discharge Providers Date of Admission: 10/11/22 15:43 Date of Discharge: October 12, 2022 Attending Provider at Admission: Beatrice Chacon MD Attending Provider at Discharge: Beatrice Chacon MD Primary Care Provider: Peace Brothers MD Diagnoses at Discharge Discharge Diagnosis (1) DKA (diabetic ketoacidosis): Status: Acute Reason for Visit Reason for Visit: DKA Hospital Course Hospital Course 27-year-old gentleman with history of DM1, recurrent DKA, presented to ER due to malaise, nausea, several episodes of vomiting, in ER found to have glucose was too high to read on glucometer, + ketones, HAGMA from DKA. evaluation and management of diabetic ketoacidosis.? Urine drug screen on admission was positive for methamphetamines.? He was started on treatment as per DKA protocol in ICU.? He responded well to the treatment and anion gap closed along with resolution of anion gap acidosis. He is being discharged in medically stable condition.He is counseled in detail to continue using his insulins as before and to follow-up with endocrinology. counseled in detail to avoid amphetamines?and DO NOT skip any insulin dosing Physical Exam Narrative: General: No acute distress, AO x3 HEENT: PERRLA, pupils bilaterally equal and reactive, pallors not present Chest: Normal vesicular breath sounds, no added sounds, equal good air entry bilaterally CVS: S1-S2 regular, no murmurs, no tachycardia, no gallops, no rubs Abdomen: Soft, nontender, no organomegaly, bowel sounds present Neuro: No focal deficits, no facial deformity, AO x3, power 5/5 in all limbs Discharge Data Studies Completed and Pending Completed Studies During Hospitalization Category Date Time Status XR chest 1V portable [id number] Stat Exams 10/11/22 13:54 Completed Pending at discharge Category Date Time Status Arterial Blood Gas W/O Coox Stat Lab 10/11/22 14:24 Results Blood Culture Stat Lab 10/11/22 14:54 Results Radiology Impressions Chest X-Ray 10/11/22 13:54 Impression: Negative chest. Laboratory Results WBC 20.9 10^3/uL (4.0-10.0) H 10/12/22 04:58 RBC 4.54 10^6/uL (4.1-5.3) 10/12/22 04:58 Hgb 13.4 g/dL (11.7-16.6) 10/12/22 04:58 Hct 39.8 % (42.0-52.0) L 10/12/22 04:58 MCV 87.7 fl (80-94) D 10/12/22 04:58 MCH 29.5 pg (28.0-34.0) 10/12/22 04:58 MCHC 33.7 g/dL (30.0-36.0) D 10/12/22 04:58 RDW 13.2 % (12.1-15.1) 10/12/22 04:58 Plt Count 284 10^3/cmm (130-400) 10/12/22 04:58 MPV 10.8 fL (7.4-10.4) H 10/12/22 04:58 Neut % (Auto) 79.7 % 10/12/22 04:58 Lymph % (Auto) 13.9 % 10/12/22 04:58 [place] % (Auto) 5.5 % 10/12/22 04:58 Eos % (Auto) 0.0 % 10/12/22 04:58 Baso % (Auto) 0.2 % 10/12/22 04:58 Neut # (Auto) 16.68 10^3/uL (1.8-7.7) H 10/12/22 04:58 Lymph # (Auto) 2.9 10^3/uL (0.8-4.8) 10/12/22 04:58 [place] # (Auto) 1.2 10^3/uL (0.2-0.9) H 10/12/22 04:58 Eos # (Auto) 0.0 10^3/uL (0.0-0.8) 10/12/22 04:58 Baso # (Auto) 0.0 10^3/uL (0.0-0.1) 10/12/22 04:58 Nucleated RBC % (auto) 0 % 10/12/22 04:58 Nucleated RBCs # 0.0 /100WBC 10/12/22 04:58 Specimen Type Arterial 10/12/22 05:36 Sample Site Radial, right 10/12/22 05:36 ABG pH 7.40 (7.35-7.45) 10/12/22 05:36 ABG pCO2 36.3 mmHg (35-45) 10/12/22 05:36 ABG pO2 58.4 mmHg (80.0-100.0) L 10/12/22 05:36 ABG HCO3 22.7 mmol/L (22-26) 10/12/22 05:36 ABG Base Excess -1.6 mmol/L (-2.0-2.0) 10/12/22 05:36 Bereket Test Pos 10/12/22 05:36 Hematocrit 41.3 % (42-52) L 10/12/22 05:36 O2 Delivery Device Room air 10/12/22 05:36 FiO2 21.0 % 10/12/22 05:36 De Icer Finisher ID Jesus Alberto 10/12/22 05:36 Sodium 135 mmol/L (136-145) L 10/12/22 07:40 Potassium 4.6 mmol/L (3.5-5.1) 10/12/22 07:40 Chloride 105 mmol/L (98-107) 10/12/22 07:40 Carbon Dioxide 22 mmol/L (22-29) 10/12/22 07:40 Anion Gap 12.6 (5-19) 10/12/22 07:40 BUN 15 mg/dL (6-20) 10/12/22 07:40 Creatinine 0.7 mg/dL (0.7-1.2) 10/12/22 07:40 GFR Calculation 137.4 mL/min (90-130) H 10/12/22 07:40 Glucose 90 mg/dL (65-115) 10/12/22 07:40 POC Glucose 228 mg/dL (70-110) H 10/12/22 11:33 Calculated Osmolality 280 mOsm/kg (285-295) L 10/12/22 07:40 Lactate 7.0 mmol/L (0.5-2.2) H* 10/11/22 13:56 Calcium 8.5 mg/dL (8.5-10.5) 10/12/22 07:40 Magnesium 2.5 mg/dL (1.7-2.3) H 10/11/22 13:56 Total Bilirubin 0.2 mg/dL (0.15-1.2) 10/11/22 13:56 AST 22 U/L (0-40) 10/11/22 13:56 ALT 54 U/L (0-41) H 10/11/22 13:56 Alkaline Phosphatase 180 U/L (40-130) H 10/11/22 13:56 Total Protein 5.6 g/dL (6.6-8.7) L 10/11/22 13:56 Albumin 3.4 g/dL (3.5-5.2) L 10/11/22 13:56 Globulin 2.2 g/dL (1.3-4.6) 10/11/22 13:56 Urine Color Yellow (Yellow) 10/11/22 16:38 Urine Appearance Clear (CLEAR) 10/11/22 16:38 Urine pH 5 (5-7) 10/11/22 16:38 Ur Specific Caraway 1.020 (1.005-1.030) 10/11/22 16:38 Urine Protein Trace (Negative) 10/11/22 16:38 Urine Glucose (UA) 4+ (Normal) H 10/11/22 16:38 Urine Ketones 3+ (Negative) H 10/11/22 16:38 Urine Blood Neg (Negative) 10/11/22 16:38 Urine Nitrate Negative (Negative) 10/11/22 16:38 Urine Bilirubin Neg (Negative) 10/11/22 16:38 Urine Urobilinogen Norm mg/dL (Negative) 10/11/22 16:38 Ur Leukocyte Esterase Negative (Negative) 10/11/22 16:38 Urine RBC Rare /hpf (0-2) 10/11/22 16:38 Urine WBC 0-4 /hpf (0-5) H 10/11/22 16:38 Ur Squamous Epith Cells 0-4 /hpf (0-5) H 10/11/22 16:38 Amorphous Sediment Not Reportable 10/11/22 16:38 Urine Bacteria Trace /hpf (NONE) 10/11/22 16:38 Hyaline Casts 0-4 /lpf H 10/11/22 16:38 Urine Mucus 1+ /hpf 10/11/22 16:38 Salicylates < 0.3 mg/dL (3-10) L 10/11/22 13:56 Urine Opiates Screen Negative ng/mL (Negative) 10/11/22 16:38 Acetaminophen < 5.0 ug/mL (10-30) L 10/11/22 13:56 Ur Barbiturates Screen Negative ng/mL (Negative) 10/11/22 16:38 Ur Phencyclidine Scrn Negative ng/mL (Negative) 10/11/22 16:38 Ur Amphetamines Screen Positive ng/mL (Negative) H 10/11/22 16:38 U Benzodiazepines Scrn Negative ng/mL (Negative) 10/11/22 16:38 Urine Cocaine Screen Negative ng/mL (Negative) 10/11/22 16:38 U Marijuana (THC) Screen Negative ng/mL (Negative) 10/11/22 16:38 Ethyl Alcohol < 10 mg/dL (0-10) 10/11/22 13:56 Serum Ketones Positive (Negative) H 10/11/22 13:56 Vitals Last Vital Signs Temp 98.4 F 10/12/22 09:24 Pulse 110 H 10/12/22 11:24 Resp 18 10/12/22 11:24 BP 139/100 10/12/22 11:24 Pulse Ox 98 10/12/22 11:24 O2 Del Method 10/12/22 11:24 Discharge Plan Discharge Patient Disposition: Home Condition: Stable Prescriptions: Continued (DME) blood-glucose meter [OneTouch Ultra2 Meter] Kit See Rx Instructions .Route Qty: 1 0RF Rx Instructions: To use TID to check blood sugar levels before taking insulin Magnesium (oxide/AA chelate) 300 mg Capsule 1 cap PO BID lisinopril 20 mg tablet 20 mg PO DAILY Qty: 60 3RF (DME) blood sugar diagnostic Strip See Rx Instructions .Route Qty: 300 3RF Rx Instructions: To use TID in onetouch meter to check blood sugar, 90 day supply potassium chloride 10 mEq tablet,ER particles/crystals 10 meq PO DAILY Qty: 5 0RF carvedilol 6.25 mg tablet 6.25 mg PO BID Novolog Flexpen U-100 Insulin 100 unit/mL (3 mL) insulin pen 10 unit SUBCUT TID Levemir FlexTouch U-100 Insuln 100 unit/mL (3 mL) insulin pen 22 unit SUBCUT QPM escitalopram oxalate 20 mg tablet 20 mg PO DAILY Discontinued insulin glargine [Lantus Solostar U-100 Insulin] 100 unit/mL (3 mL) insulin pen 10 unit SUBCUT QPM Discharge Orders: Discharge Order (Routine); Ordered 10/12/22 Ordered By: Beatrice Chacon Referrals: Peace Brothers MD [Primary Care Provider] - Elmer Jones MD [Physician] - 7-10 days Discharge Diet: Diabetic Discharge Activity: Resume usual activity Patient Instructions: Opioid Safety Discharge Attestations Time Spent in Discharge Care*: greater than 30 min Status at Discharge: Cognitive status at discharge: cognitively intact, Behavioral status at discharge: cooperative, Quality Metrics Clinical Quality Measures [ No reported AMI, CVA or VTE this stay] Coding Level of Care Code Acute [facility] note Diagnoses DKA (diabetic ketoacidosis) E11.10
[2022-10-12 15:38] LABS: Glucose Point of Care 250 mg/dL (70-110)
[2022-10-12 16:12] LABS: Blood Gas CCRB Time 1440
== END 2022-10-12 17:13 | disposition home or self-care (01) | DRG 639 ==
LOC: ER 14:45 → ICU 16:21
PROVIDERS: Family Medicine; Admitting Provider Student in an Organized Health Care Education/Training Program; Emergency Provider Emergency Medicine; PCP Family Medicine; Visit Provider Student in an Organized Health Care Education/Training Program
DX: E10.10 Type 1 diabetes mellitus with ketoacidosis without coma (principal); F15.10 Other stimulant abuse, uncomplicated; I10 Essential (primary) hypertension; F17.210 Nicotine dependence, cigarettes, uncomplicated
CPT/HCPCS: 36415; 36416; 36600; 71045; 80048; 80053; 80306; 80307; 81001; 82009; 82803; 82962; 83605; 83735; 85025; 87040; 96365; 96367; 96372; 96375; 99285; C9113; J1650; J1815; J3480; J7030; J7050; J7799

== ENCOUNTER 2022-11-20 13:13 | Observation (INO) | payer MEDICAID, SELFPAY ==
[2022-11-20] VITALS (40 sets, daily range): BP systolic 132–174; BP diastolic 100–117; PULSE 103–106; RESP 21–30; TEMP 36.6; O2SAT 97–100; BMI 22.8
--- NOTE | 2022-11-20 13:13 | W.ED.GENADLT ---
HPI - General Adult General: Chief complaint: General Medical Stated complaint: diabetic emergency Time Seen by Provider: 11/20/22 13:13 Limitations: altered mental status History of Present Illness: Mr Miller is a 27-year-old insulin-dependent diabetic presenting to the emergency department for diabetic issues. Apparently blood sugar was high at home and he has had nausea and vomiting. Patient is quite somnolent and specifics of history are somewhat limited. He reports compliance with his medications. Intensity symptoms is moderate to severe. No other specific changes in health, exacerbating, or alleviating factors identified. Review of Systems General: Reports: ROS unobtainable due to mental status PFSH ED PFSH: Medical History Acute hyperkalemia MICHAEL (acute kidney injury) Amphetamine abuse Diabetes type 1, uncontrolled History of DKA High anion gap metabolic acidosis Hyperkalemia Hypertension Lactic acidosis Leukocytosis Long-term insulin use Metabolic acidosis Pseudohyponatremia Psychiatric care Tachycardia Transaminitis Surgical History No history of previous surgery none known Family History Other Family history unknown Social History Smoking and tobacco status: current every day smoker cigarettes Packs smoked per day: 1 Alcohol intake: former Current occupational status: employed Physical Exam Const: GENERAL APPEARANCE: well developed and ill appearing OTHER: Patient quite somnolent HENMT: COMMON NORMALS: normocephalic and atraumatic HEAD & SCALP: normocephalic and atraumatic OTHER: Dry mucous membranes Eye: COMMON NORMALS: conjunctivae normal CONJUNCTIVA: Yes conjunctivae normal SCLERA: sclerae normal Neck/C-Spine: COMMON NORMALS: supple GENERAL: Yes trachea midline Resp: COMMON NORMALS: normal respiratory effort and clear to auscultation bilaterally EFFORT & INSPECTION: Yes tachypneic AUSCULTATION: clear to auscultation bilaterally OTHER: Kussmaul respirations Cardio: COMMON NORMALS: regular rhythm RATE: tachycardic RHYTHM: regular rhythm GI: COMMON NORMALS: Soft to palpation PALPATION: Yes Soft to palpation and No Tenderness to palpation present (GI) Extremity: GENERAL: Yes normal exam except as noted and No edema Neuro: COMMON NORMALS: moves all extremities SENSORIUM/ORIENTATION: No Orientation impaired OTHER: Patient is quite somnolent requiring repeated stimulation to answer questions though no obvious focal neurologic deficits on exam Course Vital Signs: Vital signs: Vital Signs Temperature 98.0 F 11/21/22 08:00 Pulse Rate 111 H 11/21/22 16:04 Respiratory Rate 17 11/21/22 14:00 Blood Pressure 145/90 11/21/22 14:00 Pulse Oximetry 98 11/21/22 14:00 Oxygen Delivery Me thod 11/21/22 03:14 [facility] - General Adult Medical Decision Making 27-year-old gentleman with history of type 1 diabetes and recurrent episodes of DKA presenting to the emergency department due to generalized illness. Patient appears encephalopathic however there are no focal neurologic deficits and patient does awaken to repeated stimuli with clear speech and appropriate responses. Clinical presentation is consistent with DKA. EKG notable for sinus tachycardia, normal axis and intervals, mild peaking of T waves. Labs notable for mild leukocytosis, normal hemoglobin and platelet count. Metabolic panel with hyponatremia, hyperkalemia, bicarb 7, anion gap 40.5, glucose 657. On ABG pH 7.16. Ketones are positive. 2 L of normal saline ordered. Insulin drip ordered. Etiology of patient's symptoms is DKA in the context of type 1 diabetes. The results of ED evaluation were discussed with the patient including plan for admission due to requirement for level of care not available if discharged to prevent significant worsening/deterioration. Patient agreeable with plan. Discussed with hospitalist service who was agreeable to admit patient. Medical Records I reviewed the patient's medical records. Lab Data I reviewed the patient's lab results. 11/20/22 13:27 11/20/22 13:27 Radiology Impressions Chest X-Ray 11/20/22 14:22 IMPRESSION: No pathologic findings. Laboratory Results WBC 11.9 10^3/uL (4.0-10.0) H 11/20/22 13:27 RBC 4.71 10^6/uL (4.1-5.3) 11/20/22 13:27 Hgb 13.8 g/dL (11.7-16.6) 11/20/22 13:27 Hct 43.0 % (42.0-52.0) 11/20/22 13:27 MCV 91.3 fl (80-94) 11/20/22 13:27 MCH 29.3 pg (28.0-34.0) 11/20/22 13:27 MCHC 32.1 g/dL (30.0-36.0) 11/20/22 13:27 RDW 12.9 % (12.1-15.1) 11/20/22 13:27 Plt Count 394 10^3/cmm (130-400) 11/20/22 13:27 MPV 11.4 fL (7.4-10.4) H 11/20/22 13:27 Neut % (Auto) 87.9 % 11/20/22 13:27 Lymph % (Auto) 8.3 % 11/20/22 13:27 [place] % (Auto) 2.6 % 11/20/22 13:27 Eos % (Auto) 0.0 % 11/20/22 13:27 Baso % (Auto) 0.6 % 11/20/22 13:27 Neut # (Auto) 10.43 10^3/uL (1.8-7.7) H 11/20/22 13:27 Lymph # (Auto) 1.0 10^3/uL (0.8-4.8) 11/20/22 13:27 Star[place] # (Auto) 0.3 10^3/uL (0.2-0.9) 11/20/22 13:27 Eos # (Auto) 0.0 10^3/uL (0.0-0.8) 11/20/22 13:27 Baso # (Auto) 0.1 10^3/uL (0.0-0.1) 11/20/22 13:27 Nucleated RBC % (auto) 0 % 11/20/22 13:27 Nucleated RBCs # 0.0 /100WBC 11/20/22 13:27 Specimen Type Arterial 11/20/22 14:04 Sample Site Radial, right 11/20/22 14:04 ABG pH 7.16 (7.35-7.45) L* 11/20/22 14:04 ABG pCO2 < 15.4 mmHg (35-45) L* 11/20/22 14:04 ABG pO2 79.1 mmHg (80.0-100.0) L 11/20/22 14:04 ABG HCO3 Not Reportable 11/20/22 14:04 ABG Base Excess Not Reportable 11/20/22 14:04 Bereket Test Pos 11/20/22 14:04 Hematocrit 43.6 % (42-52) 11/20/22 14:04 O2 Delivery Device Room air 11/20/22 14:04 FiO2 21.0 % 11/20/22 14:04 Computational Chemist ID [email or web address] 11/20/22 14:04 Blood Gas Notified Time 1420 11/20/22 14:04 Sodium 136 mmol/L (136-145) 11/20/22 21:15 Potassium 4.3 mmol/L (3.5-5.1) 11/20/22 21:15 Chloride 106 mmol/L (98-107) 11/20/22 21:15 Carbon Dioxide 14 mmol/L (22-29) L 11/20/22 21:15 Anion Gap 20.3 (5-19) H 11/20/22 21:15 BUN 16 mg/dL (6-20) 11/20/22 21:15 Creatinine 0.8 mg/dL (0.7-1.2) 11/20/22 21:15 GFR Calculation 117.8 mL/min (90-130) 11/20/22 21:15 Glucose 102 mg/dL (65-115) 11/20/22 21:15 POC Glucose 112 mg/dL (70-110) H 11/20/22 21:31 Estimat Average Glucose 280 11/20/22 13:27 Hemoglobin A1c 11.4 % (4.0-6.0) H 11/20/22 13:27 Calculated Osmolality 283 mOsm/kg (285-295) L 11/20/22 21:15 Lactate 1.9 mmol/L (0.5-2.2) 11/20/22 13:27 Calcium 8.6 mg/dL (8.5-10.5) 11/20/22 21:15 Magnesium 2.4 mg/dL (1.7-2.3) H 11/20/22 13:27 Total Bilirubin 0.4 mg/dL (0.15-1.2) 11/20/22 13:27 AST 26 U/L (0-40) 11/20/22 13:27 ALT 41 U/L (0-41) 11/20/22 13:27 Alkaline Phosphatase 206 U/L (40-130) H 11/20/22 13:27 Total Protein 6.6 g/dL (6.6-8.7) 11/20/22 13:27 Albumin 4.4 g/dL (3.5-5.2) 11/20/22 13:27 Globulin 2.2 g/dL (1.3-4.6) 11/20/22 13:27 Serum Ketones Positive (Negative) H 11/20/22 13:27 Influenza Type A Ag negative (Negative) 11/20/22 14:30 Influenza Type B Ag negative (Negative) 11/20/22 14:30 SARS-CoV-2 Ag (Rapid) negative (Negative) 11/20/22 14:30 Critical Care Time Critical Care Time: Critical Care Time: Yes Total Critical Care Time: 55 Attestation: Due to a high probability of clinically significant, possibly life threatening deterioration, the patient required my highest level of attention and preparedness to intervene emergently and I personally spent this critical care time directly and personally managing the patient. This critical care time included obtaining a history; examining the patient; pulse oximetry; ordering and review of laboratory and imaging studies; arranging urgent treatment with development of a management plan; evaluation of patient's response to treatment; frequent reassessment; and, discussions with other providers as applicable. It was exclusive of separately billable procedures. Primary system involved is metabolic Discharge Plan Discharge Patient Disposition: Admitted As Inpatient Admit Provider: Daniel Mosley Clinical Impression: DKA (diabetic ketoacidosis), Acute encephalopathy Condition: Stable Coding Level of Care Code ED Risk Control Consultant for Jazmín Agosto
--- NOTE | 2022-11-20 13:19 | ECG_ITS ---
[facility] Test Date: 2022-11-20 Pat Name: Jean Miller Department: Room: Gender: Male Hog Ribber: : 1995 Requested By: Garo Frausto Order Number: [id number] Alberto MD: Aime Calle M.D. Measurements Intervals [place] Rate: 110 P: 81 MA: 132 QRS: 75 QRSD: 87 T: 77 QT: 330 QTc: 447 Interpretive Statements SINUS TACHYCARDIA POSSIBLE RIGHT ATRIAL ENLARGEMENT [0.25mV P-WAVE] POSSIBLE LEFT ATRIAL ENLARGEMENT [-0.1mV P-WAVE IN V1/V2] Compared to ECG 09/07/2022 08:28:03 No significant changes Electronically Signed On 11-20-2022 18:11:39 CHICLE GRINDER FEEDER by Aime Calle M.D. [id number]
[2022-11-20] MEDS: sodium chloride 0.9% 1,000 ML 999 ML IV ×2 (13:33→14:43)
[2022-11-20] MEDS: ondansetron 2 mg/ML SDV 2 mL 4 MG IVP (13:33)
[2022-11-20 13:35] LABS: Basophils # 0.1 10^3/uL (0.0-0.1); Basophils % 0.6 %; Hemoglobin 13.8 g/dL (11.7-16.6); Lymphocytes % 8.3 %; Mean Corpuscular HGB Conc 32.1 g/dL (30.0-36.0); Mean Corpuscular Hemoglobin 29.3 pg (28.0-34.0); Mean Corpuscular Volume 91.3 fl (80-94); Mean Platelet Volume 11.4 fL (7.4-10.4); Monocytes # 0.3 10^3/uL (0.2-0.9); Monocytes % 2.6 %; Neutrophils # 10.43 10^3/uL (1.8-7.7); Neutrophils % 87.9 %; Nucleated Red Blood Cells % 0 %; Platelet Count 394 10^3/cmm (130-400); Red Blood Count 4.71 10^6/uL (4.1-5.3); Red Cell Distribution Width 12.9 % (12.1-15.1); White Blood Count 11.9 10^3/uL (4.0-10.0)
[2022-11-20 13:59] LABS: Alanine Aminotransferase 41 U/L (0-41); Albumin Level 4.4 g/dL (3.5-5.2); Alkaline Phosphatase 206 U/L (40-130); Anion Gap 40.5 (5-19); Aspartate Amino Transferase 26 U/L (0-40); Blood Urea Nitrogen 19 mg/dL (6-20); Calcium 9.5 mg/dL (8.5-10.5); Chloride 82 mmol/L (98-107); Globulin 2.2 g/dL (1.3-4.6); Glomerular Filtration Rate 81.6 mL/min (90-130); Lactate (Lactic Acid level) 1.9 mmol/L (0.5-2.2); Magnesium 2.4 mg/dL (1.7-2.3); Osmolality Calculated 291 mOsm/kg (285-295); Potassium 5.5 mmol/L (3.5-5.1); Sodium 124 mmol/L (136-145); Total Bilirubin 0.4 mg/dL (0.15-1.2); Total Protein 6.6 g/dL (6.6-8.7)
[2022-11-20 14:06] LABS: Carbon Dioxide 7 mmol/L (22-29); Glucose 657 mg/dL (65-115)
[2022-11-20 14:10] LABS: Ketone (Acetest) Serum Positive (Negative)
[2022-11-20 14:16] LABS: Arterial Blood Gas Hematocrit 43.6 % (42-52); Blood Gas Allen Test Pos; Blood Gas Operator Identificat glc; Blood Gas Sample Site Radial, right; Blood Gas Sample Type Arterial; Oxygen Device ROOM AIR; PO2 ABG 79.1 mmHg (80.0-100.0)
[2022-11-20 14:18] LABS: ABG PCO2 < 15.4 mmHg (35-45); ABG PH Result 7.16 (7.35-7.45)
[2022-11-20 14:19] LABS: Blood Gas CCRB Time 1420
--- NOTE | 2022-11-20 14:22 | XRR_ITS ---
PROCEDURE INFORMATION: Exam: XR Chest Exam date and time: 11/20/2022 2:37 PM Age: 27 years old Clinical indication: Other: AMS TECHNIQUE: Imaging protocol: Radiologic exam of the chest. Views: 1 view. COMPARISON: CR XR chest 1V portable [id number] 10/11/2022 1:59 PM FINDINGS: Lungs: Lungs are clear. Pleural spaces: There is no pleural effusion or pneumothorax. Heart/Mediastinum: Cardiomediastinal contours are unremarkable. Bones/joints: Bones are unremarkable. XR/XR chest 1V portable [id number] IMPRESSION: No pathologic findings.
[2022-11-20] MEDS: insulin regular-human 250 UNIT in sodium chloride 0.9% 250 ML 18.09 UNIT IV (14:27)
[2022-11-20 14:59] LABS: Influenza A by IFA negative (Negative); Influenza B by IFA negative (Negative)
[2022-11-20 15:01] LABS: SARS Covid-2 Antigen negative (Negative)
--- NOTE | 2022-11-20 15:20 | PM.HP ---
Providers/Chief Complaint Primary Care Provider: Peace Brothers MD Chief Complaint: diabetic emergency History of Present Illness Jean Miller is a 27 year old male who presented to hospital with recurrent nausea vomiting, patient is stating that his blood sugar has been running high, because of worsening of his symptoms fatigue and lethargy he decided to come to the hospital. In the ER he was diagnosed with severe DKA with metabolic acidosis. Patient is stating that he probably missed a couple doses of his insulin that aggravated his symptoms of nausea and vomiting. He is not giving detailed answers. Drowsy and lethargic. Review of Systems Const: Denies: fever(s) Eyes: Denies: change in vision ENMT: Denies: throat pain Card: Denies: chest pain Resp: Denies: dyspnea GI: Reports: nausea and vomiting : Denies: flank pain Musc: Denies: neck pain Skin/Breast: Denies: rash Neuro: Reports: behavioral changes; Denies: headache(s) Psych: Reports: depression; Denies: anxiety Endo: Denies: polyuria Basim/Lymph: Denies: easy bruising All/Imm: Denies: urticaria Medications/Allergies Home Medications Medication Instructions Recorded Confirmed Last Taken Type blood-glucose meter (OneTouch #1 ea 04/02/22 11/20/22 Unknown Rx Ultra2 Meter kit) blood sugar diagnostic #300 ea 05/12/22 11/20/22 Unknown Rx potassium chloride 10 mEq 10 meq PO DAILY #5 tabs 08/13/22 11/20/22 Unknown Rx tablet,extended release(part/cryst) magnesium oxide-magnesium amino 1 cap PO BID 09/07/22 11/20/22 Unknown History acid chelate 300 mg capsule (Magnesium (oxide/AA chelate)) lisinopril 20 mg tablet 20 mg PO DAILY #60 tabs 09/09/22 11/20/22 Unknown Rx carvedilol 6.25 mg tablet 6.25 mg PO BID 10/11/22 11/20/22 Unknown History escitalopram oxalate 20 mg tablet 20 mg PO DAILY 10/11/22 11/20/22 Unknown History insulin aspart U-100 100 unit/mL 10 unit (0.1 mL) SUBCUT TID #15 mL 11/09/22 11/20/22 Unknown Rx (3 mL) subcutaneous pen (Novolog FlexPen U-100 Insulin aspart) insulin detemir U-100 100 unit/mL 22 unit (0.22 mL) SUBCUT QPM #15 mL 11/09/22 11/20/22 Unknown Rx (3 mL) subcutaneous pen (Levemir FlexTouch U-100 Insulin) Allergies Allergy/AdvReac Type Severity Reaction Status Date / Time No Known Allergies Allergy Verified 11/20/22 13:24 PFSH Acute PFSH: Medical History Acute hyperkalemia MICHAEL (acute kidney injury) Amphetamine abuse Diabetes type 1, uncontrolled History of DKA High anion gap metabolic acidosis Hyperkalemia Hypertension Lactic acidosis Leukocytosis Long-term insulin use Metabolic acidosis Pseudohyponatremia Psychiatric care Tachycardia Transaminitis Surgical History No history of previous surgery none known Family History Other Family history unknown Social History Smoking and tobacco status: current every day smoker cigarettes Packs smoked per day: 1 Alcohol intake: former Current occupational status: employed Vitals/I&O/Wt Last Vital Signs Temp 97.9 F 11/20/22 13:15 Pulse 106 H 11/20/22 13:15 Resp 30 H 11/20/22 13:15 BP 174/112 11/20/22 14:45 Pulse Ox 100 11/20/22 14:45 O2 Del Method 11/20/22 13:15 11/20/22 11/20/22 11/20/22 06:59 14:59 22:59 Intake Total 1000 / 1000 Balance 1000 / 1000 Weight last 48 hrs Weight 70.307 kg Physical Exam Narrative: Young male S1, S2 Looks dehydrated Abdomen soft Nonfocal neuro exam Cooperative, fatigued and lethargic GCS 15 Awake and alert Able to protect airway No active emesis Data 11/20/22 13:27 11/20/22 13:27 Micro: Microbiology 11/20/22 13:43 Blood Culture - Preliminary Blood SPECIMEN COLLECTED 11/20/22 13:35 Blood Culture - Preliminary Blood SPECIMEN COLLECTED A&P Assessment and plan (1) DKA (diabetic ketoacidosis): (2) Hypertension: (3) Acute encephalopathy: (4) Amphetamine abuse: Plan Severe DKA secondary to noncompliance Severe acidosis Severe DKA with metabolic acidosis Start bicarb drip Insulin drip BMP every 4 hours I have reviewed his CBC and BMP, potassium is 5.2, will start with normal saline at 100 mill per hour along bicarb drip I will follow-up with BMP every 4 hours, once blood glucose is below 250 we will add D5 normal saline with potassium if it is less than 5 Check A1c level N.p.o. until anion gap closes Will inform liquid waste treatment plant operator Full code We will start consistent carb diet after anion gap closes Admit to ICU Polysubstance abuse, U tox positive for amphetamine, Metabolic encephalopathy related to amphetamine and dehydration related to DKA and vomiting No signs of stroke Attestations Medical Necessity Statement*: Admit to ICU anticipating more than 2 midnights Coding Level of Care Code 73944 High MDM includes risk/complexity, reviewing previous or external records, reviewing test results, ordering lab/other test(s) and discussion of management or test(s) w/ other healthcare professional (Updated liquid waste treatment plant operator) Diagnoses DKA (diabetic ketoacidosis) E11.10 Hypertension I10 Acute encephalopathy G93.40 Amphetamine abuse F15.10
--- NOTE | 2022-11-20 15:38 | PC.NURSE ---
Spoke w/ Jett, BG goal is 250, and recheck q1hr until goal reached.
[2022-11-20 15:51] LABS: Estmated Average Glucose 280; Hemoglobin A1C 11.4 % (4.0-6.0)
--- NOTE | 2022-11-20 17:35 | PC.NURSE ---
Elizabet Collins, pt mother called.
--- NOTE | 2022-11-20 17:39 | PC.NURSE ---
Pt mother called expressing concerns of pt no longer participating in ADL's. Pt mother requested consult to therapeutic services.
[2022-11-20 17:50] LABS: Glucose Point of Care 500 mg/dL (70-110)
[2022-11-20 17:50] LABS: Glucose Point of Care 329 mg/dL (70-110)
[2022-11-20 17:50] LABS: Glucose Point of Care > 600 mg/dL (70-110)
[2022-11-20 17:50] LABS: Glucose Point of Care 249 mg/dL (70-110)
[2022-11-20 18:13] LABS: Blood Urea Nitrogen 18 mg/dL (6-20); Calcium 9.1 mg/dL (8.5-10.5); Chloride 100 mmol/L (98-107); Glomerular Filtration Rate 117.8 mL/min (90-130); Glucose 253 mg/dL (65-115); Osmolality Calculated 294 mOsm/kg (285-295); Sodium 137 mmol/L (136-145)
[2022-11-20 18:15] LABS: Carbon Dioxide 5 mmol/L (22-29)
[2022-11-20] MEDS: D5-NS 0.45% + KCL 20 mEq 20 MEQ/1,000 ML BAG 125 MEQ IV (18:25)
[2022-11-20 18:32] LABS: Glucose Point of Care 204 mg/dL (70-110)
[2022-11-20 19:34] LABS: Glucose Point of Care 158 mg/dL (70-110)
[2022-11-20 20:31] LABS: Glucose Point of Care 116 mg/dL (70-110)
[2022-11-20 21:43] LABS: Anion Gap 20.3 (5-19); Blood Urea Nitrogen 16 mg/dL (6-20); Calcium 8.6 mg/dL (8.5-10.5); Carbon Dioxide 14 mmol/L (22-29); Chloride 106 mmol/L (98-107); Glomerular Filtration Rate 117.8 mL/min (90-130); Glucose 102 mg/dL (65-115); Osmolality Calculated 283 mOsm/kg (285-295); Potassium 4.3 mmol/L (3.5-5.1); Sodium 136 mmol/L (136-145)
[2022-11-20 22:41] LABS: Add Urine Microscopic? NO; Charge for UA Resulting for Rev
[2022-11-20 22:52] LABS: Amphetamines Screen Urine Positive (Negative); Barbiturates Screen Urine Negative (Negative); Benzodiazepines Screen Urine Negative (Negative); Cocaine Screen Urine Negative (Negative); Opiate Screen Urine Negative (Negative); PCP Screen Urine Negative (Negative); THC Screen Urine Negative (Negative)
[2022-11-20 22:59] LABS: Bilirubin Urine Neg (Negative); Blood Urine Neg (Negative); Glucose Urine UA 4+ (Normal); Ketones Urine 3+ (Negative); Leukocyte Esterase Urine Negative (Negative); Nitrate Urine Negative (Negative); Protein Urine Neg (Negative); Specific Gravity, Urine 1.025 (1.005-1.030); Urine Appearance Clear (CLEAR); Urine Color Yellow (Yellow); Urobilinogen Urine Norm (Negative); pH Urine 5 (5-7)
[2022-11-20 23:37] LABS: Glucose Point of Care 117 mg/dL (70-110)
[2022-11-20 23:45] LABS: Glucose Point of Care 160 mg/dL (70-110)
[2022-11-21] VITALS (18 sets, daily range): BP systolic 112–177; BP diastolic 68–129; PULSE 101–118; RESP 12–21; TEMP 36.7–36.8; O2SAT 97–100; BMI 22.3
[2022-11-21 00:29] LABS: Glucose Point of Care 151 mg/dL (70-110)
[2022-11-21 01:14] LABS: Anion Gap 17.2 (5-19); Blood Urea Nitrogen 15 mg/dL (6-20); Calcium 8.4 mg/dL (8.5-10.5); Carbon Dioxide 20 mmol/L (22-29); Chloride 105 mmol/L (98-107); Glomerular Filtration Rate 102.8 mL/min (90-130); Glucose 169 mg/dL (65-115); Osmolality Calculated 291 mOsm/kg (285-295); Potassium 4.2 mmol/L (3.5-5.1); Sodium 138 mmol/L (136-145)
[2022-11-21] MEDS: D5-NS 0.45% + KCL 20 mEq 20 MEQ/1,000 ML BAG 125 MEQ IV (02:33)
[2022-11-21 02:38] LABS: Glucose Point of Care 140 mg/dL (70-110)
[2022-11-21 02:38] LABS: Glucose Point of Care 135 mg/dL (70-110)
[2022-11-21 03:43] LABS: Glucose Point of Care 148 mg/dL (70-110)
[2022-11-21 04:27] LABS: ABG PCO2 39.2 mmHg (35-45); ABG PH Result 7.31 (7.35-7.45); Arterial Blood Gas Hematocrit 42.6 % (42-52); Base Excess ABG -5.9 mmol/L (-2.0-2.0); Blood Gas Allen Test Pos; Blood Gas Operator Identificat JB; Blood Gas Sample Site Radial, right; Blood Gas Sample Type Arterial; HCO3 ABG 19.9 mmol/L (22-26); Oxygen Device ROOM AIR; PO2 ABG 96.7 mmHg (80.0-100.0)
[2022-11-21 04:32] LABS: Glucose Point of Care 125 mg/dL (70-110)
[2022-11-21 05:02] LABS: Basophils # 0.1 10^3/uL (0.0-0.1); Basophils % 0.6 %; Eosinophils % 0.1 %; Hematocrit 39.9 % (42.0-52.0); Hemoglobin 12.9 g/dL (11.7-16.6); Lymphocytes % 21.5 %; Mean Corpuscular HGB Conc 32.3 g/dL (30.0-36.0); Mean Corpuscular Volume 89.7 fl (80-94); Mean Platelet Volume 10.8 fL (7.4-10.4); Monocytes % 6.8 %; Neutrophils # 9.82 10^3/uL (1.8-7.7); Neutrophils % 70.6 %; Nucleated Red Blood Cells % 0 %; Platelet Count 368 10^3/cmm (130-400); Red Blood Count 4.45 10^6/uL (4.1-5.3); Red Cell Distribution Width 13.4 % (12.1-15.1); White Blood Count 13.9 10^3/uL (4.0-10.0)
[2022-11-21 05:27] LABS: Blood Urea Nitrogen 14 mg/dL (6-20); Calcium 8.3 mg/dL (8.5-10.5); Carbon Dioxide 18 mmol/L (22-29); Chloride 104 mmol/L (98-107); Glomerular Filtration Rate 102.8 mL/min (90-130); Glucose 136 mg/dL (65-115); Magnesium 1.7 mg/dL (1.7-2.3); Osmolality Calculated 283 mOsm/kg (285-295); Sodium 135 mmol/L (136-145)
[2022-11-21 05:36] LABS: Glucose Point of Care 169 mg/dL (70-110)
[2022-11-21 06:40] LABS: Glucose Point of Care 162 mg/dL (70-110)
[2022-11-21 07:36] LABS: Glucose Point of Care 127 mg/dL (70-110)
[2022-11-21] MEDS: insulin glargine 100 units/1 mL 30 UNIT SUBCUT (08:18)
[2022-11-21] MEDS: lisinopril 20 mg Tablet PO (08:18)
[2022-11-21 08:41] LABS: Glucose Point of Care 149 mg/dL (70-110)
--- NOTE | 2022-11-21 08:50 | P.DS_ITS ---
Discharge Providers Date of Admission: 11/20/22 22:21 Date of Discharge: November 21, 2022 Attending Provider at Admission: Daniel Mosley MD Attending Provider at Discharge: Daniel Mosley MD Primary Care Provider: Peace Brothers MD Diagnoses at Discharge Discharge Diagnosis (1) DKA (diabetic ketoacidosis): Status: Acute (2) Hypertension: Status: Acute (3) Acute encephalopathy: Status: Acute (4) Amphetamine abuse: Status: Acute Reason for Visit Reason for Visit: diabetic emergency Hospital Course Hospital Course 27-year male who was admitted for severe DKA management secondary to noncompliance, polysubstance abuse positive for methamphetamine, he was started on bicarb drip because of severe acidosis, DKA resolved within 16 to 18 hours in the ICU, patient takes Lantus 30 units, follows up with Dr. Jones outpatient, smokes 1 pack/day, he works for [employer], he has remained hypertensive, abdominal pain has subsided. Hydration status is improving, hemoglobin A1c is above 10 Physical Exam Narrative: Lethargic and fatigued Thin lean young male Answers appropriately Hyperemic conjunctive a without any infection Hypertensive No signs of fever No sign meningitis Abdomen soft Lower extremity no edema Discharge Data Studies Completed and Pending Completed Studies During Hospitalization Category Date Time Status XR chest 1V portable [id number] Stat Exams 11/20/22 14:22 Completed Pending at discharge Category Date Time Status Blood Culture Stat Lab 11/20/22 13:43 Results Radiology Impressions Chest X-Ray 11/20/22 14:22 IMPRESSION: No pathologic findings. Laboratory Results WBC 13.9 10^3/uL (4.0-10.0) H 11/21/22 04:52 RBC 4.45 10^6/uL (4.1-5.3) 11/21/22 04:52 Hgb 12.9 g/dL (11.7-16.6) 11/21/22 04:52 Hct 39.9 % (42.0-52.0) L 11/21/22 04:52 MCV 89.7 fl (80-94) 11/21/22 04:52 MCH 29.0 pg (28.0-34.0) 11/21/22 04:52 MCHC 32.3 g/dL (30.0-36.0) 11/21/22 04:52 RDW 13.4 % (12.1-15.1) 11/21/22 04:52 Plt Count 368 10^3/cmm (130-400) 11/21/22 04:52 MPV 10.8 fL (7.4-10.4) H 11/21/22 04:52 Neut % (Auto) 70.6 % 11/21/22 04:52 Lymph % (Auto) 21.5 % 11/21/22 04:52 [place] % (Auto) 6.8 % 11/21/22 04:52 Eos % (Auto) 0.1 % 11/21/22 04:52 Baso % (Auto) 0.6 % 11/21/22 04:52 Neut # (Auto) 9.82 10^3/uL (1.8-7.7) H 11/21/22 04:52 Lymph # (Auto) 3.0 10^3/uL (0.8-4.8) 11/21/22 04:52 [place] # (Auto) 1.0 10^3/uL (0.2-0.9) H 11/21/22 04:52 Eos # (Auto) 0.0 10^3/uL (0.0-0.8) 11/21/22 04:52 Baso # (Auto) 0.1 10^3/uL (0.0-0.1) 11/21/22 04:52 Nucleated RBC % (auto) 0 % 11/21/22 04:52 Nucleated RBCs # 0.0 /100WBC 11/21/22 04:52 Specimen Type Arterial 11/21/22 04:06 Sample Site Radial, right 11/21/22 04:06 ABG pH 7.31 (7.35-7.45) L 11/21/22 04:06 ABG pCO2 39.2 mmHg (35-45) 11/21/22 04:06 ABG pO2 96.7 mmHg (80.0-100.0) 11/21/22 04:06 ABG HCO3 19.9 mmol/L (22-26) L 11/21/22 04:06 ABG Base Excess -5.9 mmol/L (-2.0-2.0) L 11/21/22 04:06 Bereket Test Pos 11/21/22 04:06 Hematocrit 42.6 % (42-52) 11/21/22 04:06 O2 Delivery Device Room air 11/21/22 04:06 FiO2 21.0 % 11/20/22 14:04 Environmental Conservation Officer ID Jesus Alberto 11/21/22 04:06 Blood Gas Notified Time 1420 11/20/22 14:04 Sodium 135 mmol/L (136-145) L 11/21/22 04:52 Potassium 4.0 mmol/L (3.5-5.1) 11/21/22 04:52 Chloride 104 mmol/L (98-107) 11/21/22 04:52 Carbon Dioxide 18 mmol/L (22-29) L 11/21/22 04:52 Anion Gap 17.0 (5-19) 11/21/22 04:52 BUN 14 mg/dL (6-20) 11/21/22 04:52 Creatinine 0.9 mg/dL (0.7-1.2) 11/21/22 04:52 GFR Calculation 102.8 mL/min (90-130) 11/21/22 04:52 Glucose 136 mg/dL (65-115) H 11/21/22 04:52 POC Glucose 149 mg/dL (70-110) H 11/21/22 08:28 Estimat Average Glucose 280 11/20/22 13:27 Hemoglobin A1c 11.4 % (4.0-6.0) H 11/20/22 13:27 Calculated Osmolality 283 mOsm/kg (285-295) L 11/21/22 04:52 Lactate 1.9 mmol/L (0.5-2.2) 11/20/22 13:27 Calcium 8.3 mg/dL (8.5-10.5) L 11/21/22 04:52 Magnesium 1.7 mg/dL (1.7-2.3) 11/21/22 04:52 Total Bilirubin 0.4 mg/dL (0.15-1.2) 11/20/22 13:27 AST 26 U/L (0-40) 11/20/22 13:27 ALT 41 U/L (0-41) 11/20/22 13:27 Alkaline Phosphatase 206 U/L (40-130) H 11/20/22 13:27 Total Protein 6.6 g/dL (6.6-8.7) 11/20/22 13:27 Albumin 4.4 g/dL (3.5-5.2) 11/20/22 13:27 Globulin 2.2 g/dL (1.3-4.6) 11/20/22 13:27 Urine Color Yellow (Yellow) 11/20/22 22:30 Urine Appearance Clear (CLEAR) 11/20/22 22:30 Urine pH 5 (5-7) 11/20/22 22:30 Ur Specific [place] 1.025 (1.005-1.030) 11/20/22 22:30 Urine Protein Neg (Negative) 11/20/22 22:30 Urine Glucose (UA) 4+ (Normal) H 11/20/22 22:30 Urine Ketones 3+ (Negative) H 11/20/22 22:30 Urine Blood Neg (Negative) 11/20/22 22:30 Urine Nitrate Negative (Negative) 11/20/22 22:30 Urine Bilirubin Neg (Negative) 11/20/22 22:30 Urine Urobilinogen Norm mg/dL (Negative) 11/20/22 22:30 Ur Leukocyte Esterase Negative (Negative) 11/20/22 22:30 Urine Opiates Screen Negative ng/mL (Negative) 11/20/22 22:30 Ur Barbiturates Screen Negative ng/mL (Negative) 11/20/22 22:30 Ur Phencyclidine Scrn Negative ng/mL (Negative) 11/20/22 22:30 Ur Amphetamines Screen Positive ng/mL (Negative) H 11/20/22 22:30 U Benzodiazepines Scrn Negative ng/mL (Negative) 11/20/22 22:30 Urine Cocaine Screen Negative ng/mL (Negative) 11/20/22 22:30 U Marijuana (THC) Screen Negative ng/mL (Negative) 11/20/22 22:30 Serum Ketones Positive (Negative) H 11/20/22 13:27 Influenza Type A Ag negative (Negative) 11/20/22 14:30 Influenza Type B Ag negative (Negative) 11/20/22 14:30 SARS-CoV-2 Ag (Rapid) negative (Negative) 11/20/22 14:30 Vitals Last Vital Signs Temp 98.0 F 11/21/22 08:00 Pulse 103 H 11/21/22 08:00 Resp 12 11/21/22 08:00 BP 141/109 11/21/22 08:00 Pulse Ox 98 11/21/22 08:00 O2 Del Method 11/21/22 03:14 Discharge Plan Discharge Patient Disposition: Home Condition: Stable Prescriptions: Continued (DME) blood-glucose meter [OneTouch Ultra2 Meter] Kit See Rx Instructions .Route Qty: 1 0RF Rx Instructions: To use TID to check blood sugar levels before taking insulin Novolog FlexPen U-100 Insulin 100 unit/mL (3 mL) insulin pen 10 unit SUBCUT TID Qty: 15 0RF Magnesium (oxide/AA chelate) 300 mg Capsule 1 cap PO BID lisinopril 20 mg tablet 20 mg PO DAILY Qty: 60 3RF (DME) blood sugar diagnostic Strip See Rx Instructions .Route Qty: 300 3RF Rx Instructions: To use TID in onetouch meter to check blood sugar, 90 day supply potassium chloride 10 mEq tablet,ER particles/crystals 10 meq PO DAILY Qty: 5 0RF carvedilol 6.25 mg tablet 6.25 mg PO BID escitalopram oxalate 20 mg tablet 20 mg PO DAILY Changed Levemir FlexTouch U-100 Insuln 100 unit/mL (3 mL) insulin pen 30 unit SUBCUT QPM Qty: 15 3RF Discharge Orders: Discharge Order (Routine); Ordered 11/21/22 Ordered By: Daniel Mosley Referrals: Peace Brothers MD [Primary Care Provider] - Patient Instructions: Opioid Safety Discharge Attestations Time Spent in Discharge Care*: less than 30 min Status at Discharge: Cognitive status at discharge: cognitively intact , Behavioral status at discharge: cooperative , Quality Metrics Clinical Quality Measures [ No reported AMI, CVA or VTE this stay] Coding Level of Care Code Acute Code for Chg Fwd Diagnoses DKA (diabetic ketoacidosis) E11.10 Hypertension I10 Acute encephalopathy G93.40 Amphetamine abuse F15.10
[2022-11-21] MEDS: dextrose 5%-ns + KCl 40 40 MEQ/1,000 ML BAG 100 MEQ IV (08:55)
[2022-11-21 08:56] LABS: Glucose Point of Care 112 mg/dL (70-110)
[2022-11-21 09:43] LABS: Glucose Point of Care 161 mg/dL (70-110)
[2022-11-21 10:51] LABS: Glucose Point of Care 333 mg/dL (70-110)
[2022-11-21 11:13] LABS: Glucose Point of Care 299 mg/dL (70-110)
[2022-11-21] MEDS: insulin lispro 100 unit/1 mL SUBCUT (11:14)
[2022-11-21 12:30] LABS: Glucose Point of Care 198 mg/dL (70-110)
[2022-11-21] MEDS: sodium chloride 0.9% 1,000 ML 100 ML IV (13:17)
[2022-11-21 15:28] LABS: Glucose Point of Care 217 mg/dL (70-110)
--- NOTE | 2022-11-21 15:59 | PC.NURSE ---
Discharge instructions given per physician's orders. IV removed, catheter intact. Pressure dressing applied, patient tolerated well. Medications sent to patient preferred pharmacy. This nurse wheeled patient to POV, family member picked patient up from facility. Belongings sent home with patient.
== END 2022-11-21 15:50 | disposition home or self-care (01) ==
LOC: ER 15:15 → ICU 21:56
PROVIDERS: Admitting Provider Internal Medicine; Emergency Provider Emergency Medicine; PCP Family Medicine; Visit Provider Internal Medicine
DX: E11.10 Type 2 diabetes mellitus with ketoacidosis without coma (principal); I10 Essential (primary) hypertension; G93.40 Encephalopathy, unspecified; F15.10 Other stimulant abuse, uncomplicated; Z91.199 Patient's noncompliance with other medical treatment and regimen due to unspecified reason; Z79.4 Long term (current) use of insulin; F17.210 Nicotine dependence, cigarettes, uncomplicated
CPT/HCPCS: 36415; 36416; 36600; 71045; 80048; 80053; 80306; 81003; 82009; 82803; 82962; 83036; 83605; 83735; 85025; 87040; 87426; 87804; 93005; 96365; 96366; 96372; 96374; 96375; 99285; A9270; G0378; J1815; J2405; J7030; J7050

== ENCOUNTER 2022-12-11 18:03 | Inpatient (IN) | payer MEDICAID, SELFPAY ==
[2022-12-11] VITALS (40 sets, daily range): BP systolic 105–157; BP diastolic 68–121; PULSE 123–148; RESP 16–28; TEMP 36.8–37.4; O2SAT 94–100
--- NOTE | 2022-12-11 18:11 | XRR_ITS ---
PROCEDURE INFORMATION: Exam: XR Chest Exam date and time: 12/11/2022 6:25 PM Age: 27 years old Clinical indication: Other: Weakness, hyperglycemia, nausea; Additional info: [place] TECHNIQUE: Imaging protocol: Radiologic exam of the chest. Views: 1 view. COMPARISON: CR XR chest 1V portable [id number] 11/20/2022 2:37 PM FINDINGS: Lungs: Unremarkable. No consolidation. Pleural spaces: Unremarkable. No pleural effusion. No pneumothorax. Heart/Mediastinum: Unremarkable. No cardiomegaly. Bones/joints: Unremarkable. XR/XR chest 1V portable [id number] IMPRESSION: No acute findings.
--- NOTE | 2022-12-11 18:12 | ECG_ITS ---
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 Measurements Intervals [place] Rate: 130 P: 73 LA: 143 QRS: 42 QRSD: 88 T: 72 QT: 291 QTc: 429 Interpretive Statements SINUS TACHYCARDIA SEPTAL MYOCARDIAL INFARCTION , OF INDETERMINATE AGE [40+ ms Q WAVE IN V1/V2] Compared to ECG 11/20/2022 13:54:49 Myocardial infarct finding now present Electronically Signed On 12-12-2022 14:19:34 LINING MARKER by Bishnu Dennis M.D. [id number]
[2022-12-11] MEDS: sodium chloride 0.9% 1,000 ML 999 ML IV ×2 (18:24→19:43)
[2022-12-11 18:32] LABS: Basophils # 0.1 10^3/uL (0.0-0.1); Basophils % 0.4 %; Hematocrit 49.4 % (42.0-52.0); Hemoglobin 15.9 g/dL (11.7-16.6); Lymphocytes # 1.3 10^3/uL (0.8-4.8); Lymphocytes % 6.3 %; Mean Corpuscular HGB Conc 32.2 g/dL (30.0-36.0); Mean Corpuscular Hemoglobin 29.1 pg (28.0-34.0); Mean Corpuscular Volume 90.5 fl (80-94); Mean Platelet Volume 11.3 fL (7.4-10.4); Monocytes # 0.8 10^3/uL (0.2-0.9); Monocytes % 3.8 %; Neutrophils % 88.5 %; Nucleated Red Blood Cells % 0 %; Platelet Count 462 10^3/cmm (130-400); Red Blood Count 5.46 10^6/uL (4.1-5.3); Red Cell Distribution Width 12.8 % (12.1-15.1); White Blood Count 20.1 10^3/uL (4.0-10.0)
[2022-12-11 18:36] LABS: Glucose Point of Care > 600 mg/dL (70-110)
[2022-12-11 18:52] LABS: Ketone (Acetest) Serum Positive (Negative)
[2022-12-11 18:54] LABS: Base Excess VBG -17.8 mmol/L (-3.0-3.0); Blood Gas Operator Identificat WALCI; Blood Gas Sample Site Not specified; Blood Gas Sample Type Venous; HCO3 VBG 8.3 mmol/L (24-28); PCO2 VBG 21.9 mmHg (41-51); PO2 VBG 77.9 mmHg (25-40); Venous Blood Gas Hematocrit 51.8 % (42-52); pH VBG 7.19 (7.32-7.42)
--- NOTE | 2022-12-11 18:56 | W.ED.GENADLT ---
HPI - General Adult General: Chief complaint: General Medical Stated complaint: HYPERGLYCEMIA Time Seen by Provider: 12/11/22 18:10 Source: EMS Mode of arrival: EMS Limitations: no limitations History of Present Illness: 27-year-old male who is a type I diabetic who has been seen here multiple times for noncompliance and in DKA states that he is forgot to take his insulin over the last 2 to 3 days and states he is feeling ill today he has had vomiting he states he has been feeling weak and dizzy he is tachycardic tachypneic here his blood sugars have been reading over 600 Associated symptoms: Reports nausea and vomiting; Deny chest pain, dyspnea, headache(s) or rash Review of Systems Const: Denies: fever(s), chills, body aches or change in appetite Eyes: Denies: blurry vision or eye discomfort ENMT: Denies: throat pain or dental pain Card: Denies: chest pain Resp: Denies: dyspnea GI: Reports: nausea and vomiting : Denies: dysuria Musc: Denies: neck pain or back pain Skin/Breast: Denies: rash Neuro: Denies: headache(s) Psych: Denies: depression Basim/Lymph: Denies: easy bruising All/Imm: Denies: urticaria PFSH ED PFSH: Medical History Acute encephalopathy Acute hyperkalemia MICHAEL (acute kidney injury) Amphetamine abuse Diabetes type 1, uncontrolled History of DKA DKA (diabetic ketoacidosis) High anion gap metabolic acidosis Hyperkalemia Hypertension Lactic acidosis Leukocytosis Long-term insulin use Metabolic acidosis Pseudohyponatremia Psychiatric care Tachycardia Transaminitis Surgical History No history of previous surgery none known Family History Other Family history unknown Social History Smoking and tobacco status: current every day smoker cigarettes Packs smoked per day: 1 Alcohol intake: former Current occupational status: employed Physical Exam Const: COMMON NORMALS: patient oriented x3 GENERAL APPEARANCE: ill appearing HENMT: COMMON NORMALS: normocephalic and atraumatic HEAD & SCALP: normocephalic and atraumatic Eye: COMMON NORMALS: Equal, round and reactive pupils present and EOMs intact bilaterally PUPIL: Yes Equal, round and reactive pupils present Neck/C-Spine: COMMON NORMALS: full ROM and supple Chest: COMMONS NORMALS: normal inspection of the chest and normal palpation of entire chest wall Resp: COMMON NORMALS: normal respiratory effort, No retractions, No use of accessory muscles and clear to auscultation bilaterally AUSCULTATION: clear to auscultation bilaterally Cardio: COMMON NORMALS: No murmurs present (Cardio) RATE: tachycardic GI: COMMON NORMALS: Normal to inspection, nondistended, normoactive bowel sounds present, Soft to palpation, non-tender and no masses PALPATION: Yes Soft to palpation Extremity: COMMON NORMALS: normal to inspection and full ROM Neuro: COMMON NORMALS: patient oriented x3, moves all extremities and no focal motor deficits Psych: COMMON NORMALS: mental status grossly normal, Normal thought process present and cooperative THOUGHT PROCESS: Normal thought process present Skin: COMMON NORMALS: no rashes or lesions noted and no wounds GENERAL SKIN EXAM: no rashes or lesions noted Course Vital Signs: Vital signs: Vital Signs Temperature 98.2 F 12/11/22 18:08 Pulse Rate 123 H 12/11/22 18:50 Respiratory Rate 18 12/11/22 18:50 Blood Pressure 150/94 12/11/22 18:50 Pulse Oximetry 100 12/11/22 18:50 Oxygen Delivery Me thod 12/11/22 18:27 MDM - General Adult Medical Decision Making Patient presents here in DKA with a anion gap metabolic acidosis he is noncompliant on his insulin likely cause of his DKA I spoke to the hospitalist will admit the ICU. Lab Data 12/11/22 18:25 12/11/22 18:25 Laboratory Results WBC 20.1 10^3/uL (4.0-10.0) H 12/11/22 18:25 RBC 5.46 10^6/uL (4.1-5.3) H 12/11/22 18:25 Hgb 15.9 g/dL (11.7-16.6) 12/11/22 18:25 Hct 49.4 % (42.0-52.0) 12/11/22 18:25 MCV 90.5 fl (80-94) 12/11/22 18:25 MCH 29.1 pg (28.0-34.0) 12/11/22 18:25 MCHC 32.2 g/dL (30.0-36.0) 12/11/22 18:25 RDW 12.8 % (12.1-15.1) 12/11/22 18:25 Plt Count 462 10^3/cmm (130-400) H 12/11/22 18:25 MPV 11.3 fL (7.4-10.4) H 12/11/22 18:25 Neut % (Auto) 88.5 % 12/11/22 18:25 Lymph % (Auto) 6.3 % 12/11/22 18:25 [place] % (Auto) 3.8 % 12/11/22 18:25 Eos % (Auto) 0.0 % 12/11/22 18:25 Baso % (Auto) 0.4 % 12/11/22 18:25 Neut # (Auto) 17.80 10^3/uL (1.8-7.7) H 12/11/22 18:25 Lymph # (Auto) 1.3 10^3/uL (0.8-4.8) 12/11/22 18:25 [place] # (Auto) 0.8 10^3/uL (0.2-0.9) 12/11/22 18:25 Eos # (Auto) 0.0 10^3/uL (0.0-0.8) 12/11/22 18:25 Baso # (Auto) 0.1 10^3/uL (0.0-0.1) 12/11/22 18:25 Nucleated RBC % (auto) 0 % 12/11/22 18: Nucleated RBCs # 0.0 /100WBC 12/11/22 18:25 Specimen Type Venous 12/11/22 18:41 Sample Site Not specified 12/11/22 18:41 Bereket Test N/a 12/11/22 18:41 VBG pH 7.19 (7.32-7.42) L 12/11/22 18:41 VBG pCO2 21.9 mmHg (41-51) L 12/11/22 18:41 VBG pO2 77.9 mmHg (25-40) H 12/11/22 18:41 VBG HCO3 8.3 mmol/L (24-28) L 12/11/22 18:41 VBG Base Excess -17.8 mmol/L (-3.0-3.0) L 12/11/22 18:41 VBG Hematocrit 51.8 % (42-52) 12/11/22 18:41 O2 Delivery Device None 12/11/22 18:41 Armored Vehicle Officer ID [place] 12/11/22 18:41 Sodium 120 mmol/L (136-145) L 12/11/22 18:25 Potassium 5.8 mmol/L (3.5-5.1) H 12/11/22 18:25 Chloride 69 mmol/L (98-107) L 12/11/22 18:25 Carbon Dioxide 8 mmol/L (22-29) L* 12/11/22 18:25 Anion Gap 48.8 (5-19) H 12/11/22 18:25 BUN 35 mg/dL (6-20) H 12/11/22 18:25 Creatinine 1.6 mg/dL (0.7-1.2) H 12/11/22 18:25 GFR Calculation 52.9 mL/min (90-130) L 12/11/22 18:25 Glucose 1089 mg/dL (65-115) H* 12/11/22 18:25 POC Glucose > 600 mg/dL (70-110) H* 12/11/22 18:33 Calculated Osmolality 313 mOsm/kg (285-295) H 12/11/22 18:25 Calcium 9.5 mg/dL (8.5-10.5) 12/11/22 18:25 Magnesium 2.5 mg/dL (1.7-2.3) H 12/11/22 18:25 Total Bilirubin 0.7 mg/dL (0.15-1.2) 12/11/22 18:25 AST 20 U/L (0-40) 12/11/22 18:25 ALT 56 U/L (0-41) H 12/11/22 18:25 Alkaline Phosphatase 192 U/L (40-130) H 12/11/22 18:25 Total Protein 6.8 g/dL (6.6-8.7) 12/11/22 18:25 Albumin 4.3 g/dL (3.5-5.2) 12/11/22 18:25 Globulin 2.5 g/dL (1.3-4.6) 12/11/22 18:25 Serum Ketones Positive (Negative) H 12/11/22 18:25 Critical Care Time Critical Care Time: Critical Care Time: Yes Total Critical Care Time: 45 Attestation: The high probability of a clinically significant, sudden or life threatening deterioration of the patient's endocrine system(s) required my full and direct attention, intervention and personal management. The critical care time is as shown. This time is in addition to time spent performing any reported procedures but includes the following: [x] Data and vital sign review and interpretation [x] Patient assessment, examination and intervention [x] Documentation [x] Medication orders and management Discharge Plan Discharge Patient Disposition: Admitted As Inpatient Clinical Impression: DKA (diabetic ketoacidosis) Condition: Stable Coding Level of Care Code ED Physical Therapy Supervisor for Jazmín Agosto
[2022-12-11 18:59] LABS: Alanine Aminotransferase 56 U/L (0-41); Albumin Level 4.3 g/dL (3.5-5.2); Alkaline Phosphatase 192 U/L (40-130); Anion Gap 48.8 (5-19); Aspartate Amino Transferase 20 U/L (0-40); Blood Urea Nitrogen 35 mg/dL (6-20); Calcium 9.5 mg/dL (8.5-10.5); Chloride 69 mmol/L (98-107); Globulin 2.5 g/dL (1.3-4.6); Glomerular Filtration Rate 52.9 mL/min (90-130); Magnesium 2.5 mg/dL (1.7-2.3); Potassium 5.8 mmol/L (3.5-5.1); Sodium 120 mmol/L (136-145); Total Bilirubin 0.7 mg/dL (0.15-1.2); Total Protein 6.8 g/dL (6.6-8.7)
--- NOTE | 2022-12-11 19:00 | PC.NURSE ---
Report from JENNIFER Garcia. Pt sleeping. Wakes to verbal command. Very slow to respond, but responds appropriately. Vital signs recorded. Ice chips provided per admitting doctor approval.
[2022-12-11 19:08] LABS: Osmolality Calculated 313 mOsm/kg (285-295)
[2022-12-11 19:12] LABS: Carbon Dioxide 8 mmol/L (22-29); Glucose 1089 mg/dL (65-115)
--- NOTE | 2022-12-11 19:35 | P.HP_ITS ---
Providers/Chief Complaint Admitting Physician: Ford Carvajal MD, hospitalist Primary Care Provider: Peace Brothers MD Chief Complaint: HYPERGLYCEMIA History of Present Illness Jean Miller is a 27 year old male who presents to the hospital with history of vomiting for the last day. He reports he is still using methamphetamine. He believes he is in DKA. Sugar was over thousand when he arrived in the ER. He denies any recent illness, cough, fever. He reports no blood in his emesis. He has had no diarrhea. He reports he has insulin at home, just did not take it. He has had multiple previous hospitalizations for DKA. When asked if he would want any rehabilitation services for methamphetamine he refuses. Review of Systems General: Reports: 10 or more systems reviewed and unremarkable except in HPI and below Const: Denies: fever(s) or chills Card: Denies: chest pain Resp: Denies: dyspnea GI: Reports: nausea and vomiting; Denies: hematochezia or melena Psych: Denies: anxiety or depression Medications/Allergies Home Medications Medication Instructions Recorded Confirmed Last Taken Type blood-glucose meter (OneTouch #1 ea 04/02/22 11/22/22 Unknown Rx Ultra2 Meter kit) blood sugar diagnostic #300 ea 05/12/22 11/22/22 Unknown Rx potassium chloride 10 mEq 10 meq PO DAILY #5 tabs 08/13/22 11/22/22 Unknown Rx tablet,extended release(part/cryst) magnesium oxide-magnesium amino 1 cap PO BID 09/07/22 11/22/22 Unknown History acid chelate 300 mg capsule (Magnesium (oxide/AA chelate)) lisinopril 20 mg tablet 20 mg PO DAILY #60 tabs 09/09/22 11/22/22 Unknown Rx carvedilol 6.25 mg tablet 6.25 mg PO BID 10/11/22 11/22/22 Unknown History escitalopram oxalate 20 mg tablet 20 mg PO DAILY 10/11/22 11/22/22 Unknown History insulin aspart U-100 100 unit/mL 10 unit (0.1 mL) SUBCUT TID #15 mL 11/09/22 11/22/22 Unknown Rx (3 mL) subcutaneous pen (Novolog FlexPen U-100 Insulin aspart) insulin detemir U-100 100 unit/mL 30 unit (0.3 mL) SUBCUT QPM #15 mL 11/21/22 11/22/22 Unknown Rx (3 mL) subcutaneous pen (Levemir FlexTouch U-100 Insulin) Allergies Allergy/AdvReac Type Severity Reaction Status Date / Time No Known Allergies Allergy Verified 11/20/22 13:24 PFSH Acute PFSH: Medical History Acute encephalopathy Acute hyperkalemia MICHAEL (acute kidney injury) Amphetamine abuse Diabetes type 1, uncontrolled History of DKA DKA (diabetic ketoacidosis) High anion gap metabolic acidosis Hyperkalemia Hypertension Lactic acidosis Leukocytosis Long-term insulin use Metabolic acidosis Pseudohyponatremia Psychiatric care Tachycardia Transaminitis Surgical History No history of previous surgery none known Family History Other Family history unknown Social History Smoking and tobacco status: current every day smoker cigarettes Packs smoked per day: 1 Alcohol intake: former Current occupational status: employed Vitals/I&O/Wt Last Vital Signs Temp 98.2 F 12/11/22 18:08 Pulse 123 H 12/11/22 18:50 Resp 18 12/11/22 18:50 BP 150/94 12/11/22 18:50 Pulse Ox 100 12/11/22 18:50 O2 Del Method 12/11/22 18:27 Weight last 48 hrs Weight 58.967 kg Physical Exam Narrative: General exam is responsive and poor dentition Neck is supple no lymphadenopathy thyromegaly Cardiovascular tachycardic, regular, no murmur Lungs clear no wheezing or crackles Abdomen is soft scaphoid with positive bowel sounds. No obvious organomegaly exam is deferred skin no rash Neuro no obvious focal deficits. Data 12/11/22 18:25 12/11/22 18:25 Other Labs: Venous blood gas demonstrates pH 7.19, PCO2 of 71, PO2 of 78, making me wonder if it is venous. Magnesium is 2.5 Calcium 9.5 LFTs with slight elevation of ALT at 56 and alk phos of 192 Lipase was not checked Urinalysis not checked Serum ketones positive Chest x-ray which I reviewed shows no infiltrate EKG demonstrates sinus tachycardia, normal axis. Some nonspecific ST-T wave changes are noted laterally A&P Assessment and plan (1) DKA (diabetic ketoacidosis): Patient presents with severe DKA, with markedly elevated anion gap Glucose is markedly elevated over thousand, and has pseudohyponatremia Secondary to acidosis he is markedly hyperkalemic, which should correct just with hydration Continue fluid boluses. ER has given him 1 L. We will give him another liter and then running at 175 cc an hour Continue high-dose fluids, with review for more boluses, until blood sugar gradually comes down to 250 or less 1 we will start D5 half-normal saline with 20 mill equivalents of potassium per liter if potassium is within normal limits at that time. Insulin drip Serial electrolytes including magnesium and phosphorus Currently although white blood cell count is elevated infection is not suspected. Await urinalysis which has been ordered Protonix for GI prophylaxis currently secondary to repetitive vomiting Med list will need reconciled with secondary to acute DKA will not be providing medications currently, especially his potassium and lisinopril considering acute kidney injury (2) MICHAEL (acute kidney injury): Await urinalysis Likely secondary to dehydration and DKA Avoid renal toxic medication Monitor closely for improvement with BMP in the morning Hold lisinopril and potassium currently, if he was using it. Medicine list has yet to be reconciled. (3) Transaminitis: Check hepatitis panel (4) Subclinical hyperthyroidism: Check TSH Plan Methamphetamine use. He does not want any rehabilitation resources at this time. Other medical problems as outlined in past medical history Full code SCDs for DVT prophylaxis as well as Lovenox Attestations Medical Necessity Statement*: Will need greater than 2 midnight stay secondary to severe DKA with acute kidney injury Coding Level of Care Code Critical Care >/= 30 minutes Critical care time (in minutes): 43 The high probability of a clinically significant, sudden or life threatening deterioration, as referenced in this documentation, required my full and direct attention, intervention and personal management. The critical care time shown is in addition to time spent performing any reported separately billable procedures and includes the following: [x] Data and vital sign review and interpretation [x ] Patient assessment, examination and intervention [x] Medication orders and management [x] Patient/Family updates as able [x] Care Coordination and Documentation. Diagnoses DKA (diabetic ketoacidosis) E11.10 MICHAEL (acute kidney injury) N17.9 Transaminitis R74.01 Subclinical hyperthyroidism E05.90
[2022-12-11] MEDS: insulin regular-human 250 UNIT in sodium chloride 0.9% 250 ML 30.8 UNIT IV (19:44)
[2022-12-11 20:33] LABS: Add Urine Microscopic? NO; Charge for UA Resulting for Rev
[2022-12-11 20:47] LABS: Bilirubin Urine Neg (Negative); Blood Urine Neg (Negative); Glucose Urine UA 4+ (Normal); Ketones Urine 3+ (Negative); Leukocyte Esterase Urine Negative (Negative); Nitrate Urine Negative (Negative); Protein Urine Neg (Negative); Specific Gravity, Urine 1.015 (1.005-1.030); Urine Appearance Clear (CLEAR); Urine Color Yellow (Yellow); Urobilinogen Urine Norm (Negative); pH Urine 5 (5-7)
[2022-12-11 20:47] LABS: Hepatitis A Antibody IgM Non-Reactive (Nonreactive); Hepatitis B Core IgM Non-Reactive (Nonreactive); Hepatitis B Surface Antigen Non-Reactive (Nonreactive); Hepatitis C Virus Antibody Non-Reactive (Nonreactive)
[2022-12-11 21:06] LABS: Glucose Point of Care 539 mg/dL (70-110)
[2022-12-11] MEDS: sodium chloride 0.9% 1,000 ML 175 ML IV (21:25)
[2022-12-11] MEDS: enoxaparin 40 mg/0.4 mL Syringe SUBCUT (21:25)
[2022-12-11 21:54] LABS: Anion Gap 34.7 (5-19); Blood Urea Nitrogen 29 mg/dL (6-20); Carbon Dioxide 12 mmol/L (22-29); Chloride 89 mmol/L (98-107); Glucose 481 mg/dL (65-115); Osmolality Calculated 301 mOsm/kg (285-295); Phosphorus 4.2 mg/dL (2.5-4.5); Potassium 3.7 mmol/L (3.5-5.1); Sodium 132 mmol/L (136-145)
[2022-12-11 21:55] LABS: Magnesium 2.4 mg/dL (1.7-2.3)
[2022-12-11 22:05] LABS: Glucose Point of Care 347 mg/dL (70-110)
[2022-12-11] MEDS: sodium chlor 0.9% + KCl 20 mEq 20 MEQ/1,000 ML BAG 175 MEQ IV (22:43)
[2022-12-11 23:12] LABS: Glucose Point of Care 204 mg/dL (70-110)
[2022-12-11] MEDS: D5-NS 0.45% + KCL 20 mEq 20 MEQ/1,000 ML BAG 150 MEQ IV (23:17)
[2022-12-12] VITALS (178 sets, daily range): BP systolic 86–161; BP diastolic 53–112; PULSE 77–137; RESP 6–31; TEMP 36.9–37.2; O2SAT 91–100; BMI 19.2
[2022-12-12 00:39] LABS: Glucose Point of Care 151 mg/dL (70-110)
[2022-12-12 01:06] LABS: Glucose Point of Care 107 mg/dL (70-110)
[2022-12-12 01:45] LABS: Glucose Point of Care 105 mg/dL (70-110)
[2022-12-12 02:23] LABS: Basophils # 0.1 10^3/uL (0.0-0.1); Basophils % 0.3 %; Hematocrit 43.1 % (42.0-52.0); Hemoglobin 15.1 g/dL (11.7-16.6); Lymphocytes # 3.6 10^3/uL (0.8-4.8); Lymphocytes % 17.5 %; Mean Corpuscular Hemoglobin 29.8 pg (28.0-34.0); Mean Platelet Volume 10.7 fL (7.4-10.4); Monocytes # 2.3 10^3/uL (0.2-0.9); Monocytes % 11.5 %; Neutrophils # 14.24 10^3/uL (1.8-7.7); Neutrophils % 70.1 %; Nucleated Red Blood Cells % 0 %; Platelet Count 410 10^3/cmm (130-400); Red Blood Count 5.07 10^6/uL (4.1-5.3); Red Cell Distribution Width 12.9 % (12.1-15.1); White Blood Count 20.3 10^3/uL (4.0-10.0)
[2022-12-12 02:46] LABS: Alanine Aminotransferase 47 U/L (0-41); Albumin Level 3.7 g/dL (3.5-5.2); Alkaline Phosphatase 133 U/L (40-130); Anion Gap 16.6 (5-19); Aspartate Amino Transferase 15 U/L (0-40); Blood Urea Nitrogen 30 mg/dL (6-20); Carbon Dioxide 25 mmol/L (22-29); Chloride 98 mmol/L (98-107); Globulin 2.4 g/dL (1.3-4.6); Glomerular Filtration Rate 81.6 mL/min (90-130); Glucose 109 mg/dL (65-115); Magnesium 2.2 mg/dL (1.7-2.3); Osmolality Calculated 289 mOsm/kg (285-295); Potassium 3.6 mmol/L (3.5-5.1); Sodium 136 mmol/L (136-145); Total Bilirubin 0.4 mg/dL (0.15-1.2); Total Protein 6.1 g/dL (6.6-8.7)
[2022-12-12 03:20] LABS: Glucose Point of Care 84 mg/dL (70-110)
[2022-12-12 03:36] LABS: Glucose Point of Care 90 mg/dL (70-110)
--- NOTE | 2022-12-12 03:39 | PC.NURSE ---
Reported blood sugar of [address] Carvajal. Reviewed labs results and current medications. Orders to increase IVF to 175ml/hr until D10 drip is available.
[2022-12-12] MEDS: dextrose 5%-ns + KCl 20 20 MEQ/1,000 ML BAG 75 MEQ IV (03:53)
[2022-12-12] MEDS: dextrose 10% 1,000 ML 75 ML IV (04:01)
[2022-12-12 04:29] LABS: Glucose Point of Care 101 mg/dL (70-110)
[2022-12-12 05:07] LABS: Glucose Point of Care 103 mg/dL (70-110)
[2022-12-12 05:57] LABS: Glucose Point of Care 110 mg/dL (70-110)
[2022-12-12 06:28] LABS: Blood Urea Nitrogen 25 mg/dL (6-20); Calcium 8.6 mg/dL (8.5-10.5); Carbon Dioxide 25 mmol/L (22-29); Chloride 100 mmol/L (98-107); Glomerular Filtration Rate 102.8 mL/min (90-130); Glucose 115 mg/dL (65-115); Magnesium 2.1 mg/dL (1.7-2.3); Osmolality Calculated 287 mOsm/kg (285-295); Sodium 136 mmol/L (136-145)
[2022-12-12 07:30] LABS: Glucose Point of Care 120 mg/dL (70-110)
--- NOTE | 2022-12-12 07:59 | PC.PHAR ---
PT STS HE NO LONGER TAKES LISINOPRIL 20 MG LAST FILLED 09/10/22 30DS, MAGNESIUM OR POTASSIUM 10 MEQ
[2022-12-12 08:36] LABS: Glucose Point of Care 119 mg/dL (70-110)
[2022-12-12] MEDS: insulin glargine 100 units/1 mL 30 UNIT SUBCUT (09:15)
[2022-12-12] MEDS: sodium chlor 0.45% +KCl 20 mEq 20 MEQ/1,000 ML BAG 100 MEQ IV (10:45)
[2022-12-12] MEDS: pantoprazole 40 mg SDV IVP (10:45)
--- NOTE | 2022-12-12 10:49 | PC.CHAP ---
Pastoral Care Encounter/Spiritual Assessment Type of Contact [] Declined neck band operator visit [] Patient/Family/Request visit [] Outpatient visit [] Follow-up visit [] Physician referral [] Code/Alert [x] Routine visit [] Staff referral [] Actively dying [x] Patient sleeping [] Family support [] [] Out of room [] Palliative care [] [] Receiving care in room [] Pre-surgical visit [] Trauma [] Long length of stay [x] ICU visit [] Other: Relational/Emotional Strength [] Patient feels connected with others/family/visitors/staff [] Distress [] Loneliness/isolation [] Abandonment Spirituality of Patient [] Person of Lea [] Attends Islam of their Lea [] Believes in Prayer [] Reads Bible or Buddhist materials [] There are Spiritual issues to be addressed Pumper Gauger Interventions [x] Prayer [] Active listening [] Non-anxious presence [] Spiritual/emotional support [] Crisis/trauma care [] Spiritual counseling [] Bereavement support [] Provided bereavement packet [] Provided Bible/devotional materials [] Provided toy/stuffed animal, coloring book to patient or family member [] Provided Communion [] Anointing/Goodman [] Salvation [x] Completed spiritual assessment [] Other: Impact on Illness or Injury [] Angry [] Fearful [] Anxious [] Often cries [] Exhaustion [] Unable to work [] Unable to attend jewish [] Unable to walk/stand [] Unable to read [] Unable to drive [] Unable to eat/drink [] Unable to sleep [] Unable to be with family [] Patient intubated [] Other: Summary Time spent with patient
[2022-12-12 12:03] LABS: Glucose Point of Care 233 mg/dL (70-110)
[2022-12-12] MEDS: insulin lispro 100 unit/1 mL SUBCUT (12:04)
[2022-12-12 13:15] LABS: Blood Urea Nitrogen 21 mg/dL (6-20); Calcium 8.5 mg/dL (8.5-10.5); Carbon Dioxide 23 mmol/L (22-29); Chloride 95 mmol/L (98-107); Glomerular Filtration Rate 102.8 mL/min (90-130); Glucose 259 mg/dL (65-115); Osmolality Calculated 282 mOsm/kg (285-295); Sodium 130 mmol/L (136-145)
--- NOTE | 2022-12-12 13:38 | PM.DCS ---
Discharge Providers Date of Admission: 12/11/22 21:06 Date of Discharge: December 12, 2022 Attending Provider at Admission: Ford Carvajal MD Attending Provider at Discharge: Iftikhar Soriano Primary Care Provider: Peace Brothers MD Diagnoses at Discharge Discharge Diagnosis (1) DKA (diabetic ketoacidosis): Status: Acute (2) MICHAEL (acute kidney injury): Status: Acute (3) Transaminitis: Status: Acute (4) Subclinical hyperthyroidism: Status: Acute Reason for Visit Reason for Visit: HYPERGLYCEMIA Hospital Course Hospital Course 27-year-old gentleman with history of diabetes, methamphetamine use disorder, was admitted for assessment management after presenting with vomiting, hyperglycemia, found to be in DKA, acute kidney injury creatinine of 1.6, sodium 120, potassium 5.8. Glucose 1089. Using methamphetamine, declined offer for help with arrangement of rehabilitation services. He did not take insulin. Discussed with him importance of stopping methamphetamine use, discussed potential disabling or life-threatening complications. Additionally discussed potentially severe, possibly disabling or life-threatening complications of DKA. Importance of continued insulin use. He verbalized understanding. Intense to resume using insulin appropriately. His MICHAEL improved with fluid challenge. DKA resolved, anion gap closed, bicarb improved, glucose with improvement. Was transitioned to subcutaneous insulin. Tolerating oral intake. Reports that he is feeling better and back to his usual self. Will request follow-up also with endocrinology. Noted also mild transaminitis is improving/resolving. Acute hepatitis panel was nonreactive. Sinus tachycardia, [place] ptosis thought to be secondary to DKA. Did have assessment additionally with chest x-ray, UA which were without suggestion of infection. He denies any nausea vomiting, other GI symptoms, or any other symptoms that may be suggestive of acute infection and with treatment of DKA tachycardia is improving. She does also have beta-zahra at home for management of hypertension, not clear that he has been taking his other medications as well. Encouraged to resume medications. Physical Exam Const: COMMON NORMALS: patient oriented x3 and alert GENERAL APPEARANCE: cooperative ORIENTATION/CONSCIOUSNESS: Yes awake HENMT: COMMON NORMALS: oropharynx normal Neck/C-Spine: COMMON NORMALS: no JVD Resp: COMMON NORMALS: normal respiratory effort and clear to auscultation bilaterally AUSCULTATION: clear to auscultation bilaterally Cardio: COMMON NORMALS: no JVD, regular rhythm, S1 normal heart sound present, S2 normal heart sound present and No murmurs present (Cardio) RHYTHM: regular rhythm HEART SOUNDS: S1 normal heart sound present and S2 normal heart sound present GI: COMMON NORMALS: Normal to inspection, nondistended, normoactive bowel sounds present, Soft to palpation and non-tender PALPATION: Yes Soft to palpation Extremity: COMMON NORMALS: no joint enlargement and no pedal edema Neuro: COMMON NORMALS: patient oriented x3 and moves all extremities SENSORIUM/ORIENTATION: Yes alert Skin: COMMON NORMALS: no rashes or lesions noted GENERAL SKIN EXAM: no rashes or lesions noted Discharge Data Studies Completed and Pending Completed Studies During Hospitalization Category Date Time Status XR chest 1V portable [id number] Stat Exams 12/11/22 18:11 Completed Radiology Impressions Chest X-Ray 12/11/22 18:11 IMPRESSION: No acute findings. Laboratory Results WBC 20.3 10^3/uL (4.0-10.0) H 12/12/22 01:38 RBC 5.07 10^6/uL (4.1-5.3) 12/12/22 01:38 Hgb 15.1 g/dL (11.7-16.6) 12/12/22 01:38 Hct 43.1 % (42.0-52.0) 12/12/22 01:38 MCV 85.0 fl (80-94) D 12/12/22 01:38 MCH 29.8 pg (28.0-34.0) 12/12/22 01:38 MCHC 35.0 g/dL (30.0-36.0) D 12/12/22 01:38 RDW 12.9 % (12.1-15.1) 12/12/22 01:38 Plt Count 410 10^3/cmm (130-400) H 12/12/22 01:38 MPV 10.7 fL (7.4-10.4) H 12/12/22 01:38 Neut % (Auto) 70.1 % 12/12/22 01:38 Lymph % (Auto) 17.5 % 12/12/22 01:38 [place] % (Auto) 11.5 % 12/12/22 01:38 Eos % (Auto) 0.0 % 12/12/22 01:38 Baso % (Auto) 0.3 % 12/12/22 01:38 Neut # (Auto) 14.24 10^3/uL (1.8-7.7) H 12/12/22 01:38 Lymph # (Auto) 3.6 10^3/uL (0.8-4.8) 12/12/22 01:38 [place] # (Auto) 2.3 10^3/uL (0.2-0.9) H 12/12/22 01:38 Eos # (Auto) 0.0 10^3/uL (0.0-0.8) 12/12/22 01:38 Baso # (Auto) 0.1 10^3/uL (0.0-0.1) 12/12/22 01:38 Nucleated RBC % (auto) 0 % 12/12/22 01:38 Nucleated RBCs # 0.0 /100WBC 12/12/22 01:38 Specimen Type Venous 12/11/22 18:41 Sample Site Not specified 12/11/22 18:41 Bereket Test N/a 12/11/22 18:41 VBG pH 7.19 (7.32-7.42) L 12/11/22 18:41 VBG pCO2 21.9 mmHg (41-51) L 12/11/22 18:41 VBG pO2 77.9 mmHg (25-40) H 12/11/22 18:41 VBG HCO3 8.3 mmol/L (24-28) L 12/11/22 18:41 VBG Base Excess -17.8 mmol/L (-3.0-3.0) L 12/11/22 18:41 VBG Hematocrit 51.8 % (42-52) 12/11/22 18:41 O2 Delivery Device None 12/11/22 18:41 [employer] We[employer] Sergeant ID [place] 12/11/22 18:41 Sodium 130 mmol/L (136-145) L 12/12/22 12:45 Potassium 4.0 mmol/L (3.5-5.1) 12/12/22 12:45 Chloride 95 mmol/L (98-107) L 12/12/22 12:45 Carbon Dioxide 23 mmol/L (22-29) 12/12/22 12:45 Anion Gap 16.0 (5-19) 12/12/22 12:45 BUN 21 mg/dL (6-20) H 12/12/22 12:45 Creatinine 0.9 mg/dL (0.7-1.2) 12/12/22 12:45 GFR Calculation 102.8 mL/min (90-130) 12/12/22 12:45 Glucose 259 mg/dL (65-115) H 12/12/22 12:45 POC Glucose 233 mg/dL (70-110) H 12/12/22 12:00 Calculated Osmolality 282 mOsm/kg (285-295) L 12/12/22 12:45 Calcium 8.5 mg/dL (8.5-10.5) 12/12/22 12:45 Phosphorus 5.0 mg/dL (2.5-4.5) H 12/12/22 05:48 Magnesium 2.1 mg/dL (1.7-2.3) 12/12/22 05:48 Total Bilirubin 0.4 mg/dL (0.15-1.2) 12/12/22 01:38 AST 15 U/L (0-40) 12/12/22 01:38 ALT 47 U/L (0-41) H 12/12/22 01:38 Alkaline Phosphatase 133 U/L (40-130) H 12/12/22 01:38 Total Protein 6.1 g/dL (6.6-8.7) L 12/12/22 01:38 Albumin 3.7 g/dL (3.5-5.2) 12/12/22 01:38 Globulin 2.4 g/dL (1.3-4.6) 12/12/22 01:38 TSH 0.60 uIU/mL (0.27-4.20) 12/11/22 18:25 Urine Color Yellow (Yellow) 12/11/22 20:08 Urine Appearance Clear (CLEAR) 12/11/22 20:08 Urine pH 5 (5-7) 12/11/22 20:08 Ur Specific [place] 1.015 (1.005-1.030) 12/11/22 20:08 Urine Protein Neg (Negative) 12/11/22 20:08 Urine Glucose (UA) 4+ (Normal) H 12/11/22 20:08 Urine Ketones 3+ (Negative) H 12/11/22 20:08 Urine Blood Neg (Negative) 12/11/22 20:08 Urine Nitrate Negative (Negative) 12/11/22 20:08 Urine Bilirubin Neg (Negative) 12/11/22 20:08 Urine Urobilinogen Norm mg/dL (Negative) 12/11/22 20:08 Ur Leukocyte Esterase Negative (Negative) 12/11/22 20:08 Serum Ketones Positive (Negative) H 12/11/22 18:25 Hepatitis A IgM Ab Non-reactive (Nonreactive) 12/11/22 18:25 Hep Bs Antigen Non-reactive (Nonreactive) 12/11/22 18:25 Hep B Core IgM Ab Non-reactive (Nonreactive) 12/11/22 18:25 Hepatitis C Antibody Non-reactive (Nonreactive) 12/11/22 18:25 Vitals Last Vital Signs Temp 98.5 F 12/12/22 09:45 Pulse 112 H 12/12/22 11:45 Resp 19 H 12/12/22 11:45 BP 160/112 12/12/22 11:45 Pulse Ox 99 12/12/22 11:45 O2 Del Method 12/12/22 09:45 Discharge Plan Discharge Patient Disposition: Home Condition: Stable Prescriptions: Continued (DME) blood-glucose meter [OneTouch Ultra2 Meter] Kit See Rx Instructions .Route Qty: 1 0RF Rx Instructions: To use TID to check blood sugar levels before taking insulin Novolog FlexPen U-100 Insulin 100 unit/mL (3 mL) insulin pen 10 unit SUBCUT TID Qty: 15 0RF Levemir FlexTouch U-100 Insuln 100 unit/mL (3 mL) insulin pen 30 unit SUBCUT QPM Qty: 15 3RF (DME) blood sugar diagnostic Strip See Rx Instructions .Route Qty: 300 3RF Rx Instructions: To use TID in onetouch meter to check blood sugar, 90 day supply carvedilol 6.25 mg tablet 6.25 mg PO BID escitalopram oxalate 20 mg tablet 20 mg PO DAILY Discharge Orders: Discharge Order (Routine); Ordered 12/12/22 Ordered By: Iftikhar Soriano Referrals: Peace Brothers MD [Primary Care Provider] - 4-7 days Elmer Jones MD [Physician] - 2 weeks Discharge Diet: Diabetic Patient Instructions: Diabetic Ketoacidosis (GEN), Methamphetamine Use Disorder (GEN) Activity Restrictions/Additional Instructions: Please stop amphetamine use, further use will lead to complications with possible heart attack, stroke, or other severely disabling or life-threatening complications. Make sure not to use any insulin doses as DKA is a potentially life-threatening condition with risks of severe or disabling comorbidities including heart attack, life-threatening blood clots, organ failure and other. Continue your medications at home including blood pressure medicines. Monitor blood pressures at least twice daily and record values to bring to your appointment. Uncontrolled hypertension can elevate your risk of stroke, heart attack, and other complications. Discharge Attestations Time Spent in Discharge Care*: greater than 30 min Status at Discharge: Cognitive status at discharge: cognitively intact, Behavioral status at discharge: cooperative, Quality Metrics Clinical Quality Measures [ No reported AMI, CVA or VTE this stay] Coding Level of Care Code Acute Code for Chg Fwd Diagnoses DKA (diabetic ketoacidosis) E11.10 MICHAEL (acute kidney injury) N17.9 Transaminitis R74.01 Subclinical hyperthyroidism E05.90
[2022-12-12 21:18] LABS: Glucose Point of Care > 600 mg/dL (70-110)
[2022-12-12 21:18] LABS: Glucose Point of Care > 600 mg/dL (70-110)
[2022-12-12 21:18] LABS: Glucose Point of Care > 600 mg/dL (70-110)
== END 2022-12-12 17:00 | disposition home or self-care (01) | DRG 638 ==
LOC: ER 19:17 → ICU 20:47
PROVIDERS: Admitting Provider Internal Medicine; Emergency Provider Emergency Medicine; PCP Family Medicine; Visit Provider Internal Medicine
DX: E10.10 Type 1 diabetes mellitus with ketoacidosis without coma (principal); N17.9 Acute kidney failure, unspecified; T38.3X6A Underdosing of insulin and oral hypoglycemic [antidiabetic] drugs, initial encounter; E87.5 Hyperkalemia; E86.0 Dehydration; R00.0 Tachycardia, unspecified; I10 Essential (primary) hypertension; R74.01 Elevation of levels of liver transaminase levels; E05.90 Thyrotoxicosis, unspecified without thyrotoxic crisis or storm; F15.90 Other stimulant use, unspecified, uncomplicated; F17.210 Nicotine dependence, cigarettes, uncomplicated; Z79.4 Long term (current) use of insulin
CPT/HCPCS: 36415; 36416; 71045; 80048; 80053; 80074; 81003; 82009; 82803; 82962; 83735; 84100; 84443; 85025; 93005; 96365; 96366; 96372; 96375; 99291; C9113; J1650; J1815; J3480; J7030; J7050

== ENCOUNTER 2022-12-25 09:19 | Inpatient (IN) | payer MEDICAID, SELFPAY ==
[2022-12-25] VITALS (66 sets, daily range): BP systolic 91–167; BP diastolic 56–98; PULSE 96–132; RESP 13–32; TEMP 33–37.1; O2SAT 85–100
[2022-12-25 09:33] LABS: Glucose Point of Care > 600 mg/dL (70-110)
--- NOTE | 2022-12-25 09:34 | XRR_ITS ---
PROCEDURE INFORMATION: Exam: XR Chest Exam date and time: 12/25/2022 9:59 AM Age: 27 years old Clinical indication: Dyspnea TECHNIQUE: Imaging protocol: Radiologic exam of the chest. Views: 1 view. COMPARISON: CR (CHEST, ) 12/11/2022 6:25 PM FINDINGS: Lungs: The lung parenchyma is clear. Pleural spaces: No pneumothorax. No pleural effusion. Heart/Mediastinum: The cardiomediastinal silhouette is within normal limits. Bones/joints: Unremarkable. XR/XR chest 1V portable [id number] IMPRESSION: No acute cardiopulmonary abnormality.
--- NOTE | 2022-12-25 09:37 | W.ED.GENADLT ---
HPI - General Adult General: Chief complaint: General Medical Stated complaint: HYPOGLYCEMIA Time Seen by Provider: 12/25/22 09:20 Source: EMS Mode of arrival: EMS History of Present Illness: 27-year-old male presents to the emergency room with elevated blood sugars he is poorly responsive. 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 He grimaces with stimulation but gives no verbal response. Respiratory rates in the low 30s. He is unattended no family present at the time initially seen him. He has a known history of diabetes mellitus and has been admitted multiple times for DKA. Blood sugar at the bedside reads greater than 600. Onset (ago): day(s) Review of Systems General: Reports: ROS unobtainable due to mental status PFSH ED PFSH: Medical History Amphetamine abuse Diabetes type 1, uncontrolled History of DKA History of thyroid nodule right complex nodule, FNA showed benign 03/2022 Hypertension Hyperthyroidism subclinical Long-term insulin use Psychiatric care Transaminitis Surgical History No history of previous surgery none known Family History Other Family history unknown Social History Smoking and tobacco status: current every day smoker cigarettes Packs smoked per day: 1 Alcohol intake: former Substance/Drug Use: current Substance/Drug use type: Methamphetamine Physical Exam Const: GENERAL APPEARANCE: lethargic ORIENTATION/CONSCIOUSNESS: Yes patient obtunded and Yes lethargic HENMT: COMMON NORMALS: normocephalic and atraumatic HEAD & SCALP: normocephalic and atraumatic Resp: COMMON NORMALS: No retractions, No use of accessory muscles and clear to auscultation bilaterally EFFORT & INSPECTION: Yes tachypneic AUSCULTATION: clear to auscultation bilaterally Cardio: COMMON NORMALS: regular rhythm and No murmurs present (Cardio) RATE: tachycardic RHYTHM: regular rhythm GI: COMMON NORMALS: Soft to palpation and No hepatosplenomegaly present AUSCULTATION: Yes normoactive bowel sounds PALPATION: Yes Soft to palpation, No Tenderness to palpation present (GI), No Guarding due to palpation present (GI) and Yes No hepatosplenomegaly present Extremity: COMMON NORMALS: normal to inspection, capillary refill normal, no clubbing, cyanosis or edema, no calf tenderness and no pedal edema Neuro: SENSORIUM/ORIENTATION: Yes lethargic Skin: COMMON NORMALS: no rashes or lesions noted GENERAL SKIN EXAM: no rashes or lesions noted Course Vital Signs: Vital signs: Vital Signs Temperature 98.8 F 12/26/22 04:00 Pulse Rate 116 H 12/26/22 06:00 Respiratory Rate 18 12/26/22 06:00 Blood Pressure 136/97 12/26/22 06:00 Pulse Oximetry 97 12/26/22 06:00 Oxygen Delivery Me thod 12/26/22 04:00 Oxygen Flow Rate 2 12/25/22 09:58 [facility] - General Adult Medical Decision Making Acute DKA with severe acidosis pH is below 7. IV fluids. His initial potassium is only 5.5 which will high with the amount of fluids he is going to need for resuscitation likely already reflects a true deficit. We will start potassium supplementation now. After fluids initially given patient given insulin and started on insulin drip as well as given bicarb. Discussed with hospitalist orders written. Patient hypothermic on arrival unable to get much for history initially no known exposure to cold. Once patient became more responsive he still could not give an explanation of how he became so significantly hypothermic. Warming started. Medical Records I reviewed the patient's medical records. Lab Data I reviewed the patient's lab results. 12/26/22 04:03 12/26/22 04:03 Radiology Impressions Chest X-Ray 12/25/22 09:34 IMPRESSION: No acute cardiopulmonary abnormality. Laboratory Results WBC 40.0 10^3/uL (4.0-10.0) H* 12/25/22 09:38 RBC 4.35 10^6/uL (4.1-5.3) 12/25/22 09:38 Hgb 13.0 g/dL (11.7-16.6) 12/25/22 09:38 Hct 44.6 % (42.0-52.0) 12/25/22 09:38 MCV 102.5 fl (80-94) H 12/25/22 09:38 MCH 29.9 pg (28.0-34.0) 12/25/22 09:38 MCHC 29.1 g/dL (30.0-36.0) L 12/25/22 09:38 RDW 12.9 % (12.1-15.1) 12/25/22 09:38 Plt Count 459 10^3/cmm (130-400) H 12/25/22 09:38 MPV 11.1 fL (7.4-10.4) H 12/25/22 09:38 Neut % (Auto) 85.4 % 12/25/22 09:38 Lymph % (Auto) 7.6 % 12/25/22 09:38 [place] % (Auto) 4.9 % 12/25/22 09:38 Eos % (Auto) 0.0 % 12/25/22 09:38 Baso % (Auto) 0.4 % 12/25/22 09:38 Neut # (Auto) 34.14 10^3/uL (1.8-7.7) H 12/25/22 09:38 Lymph # (Auto) 3.1 10^3/uL (0.8-4.8) 12/25/22 09:38 [place] # (Auto) 2.0 10^3/uL (0.2-0.9) H 12/25/22 09:38 Eos # (Auto) 0.0 10^3/uL (0.0-0.8) 12/25/22 09:38 Baso # (Auto) 0.2 10^3/uL (0.0-0.1) H 12/25/22 09:38 Nucleated RBC % (auto) 0 % 12/25/22 09:38 Nucleated RBCs # 0.0 /100WBC 12/25/22 09:38 Specimen Type Arterial 12/25/22 11:14 Sample Site Brachial, right 12/25/22 11:14 ABG pH 6.85 (7.35-7.45) L* 12/25/22 11:14 ABG pCO2 9.1 mmHg (35-45) L* 12/25/22 11:14 ABG pO2 158.0 mmHg (80.0-100.0) H 12/25/22 11:14 ABG HCO3 1.6 mmol/L (22-26) L 12/25/22 11:14 ABG O2 Saturation 98.8 12/25/22 11:14 ABG Base Excess -30.7 mmol/L (-2.0-2.0) L 12/25/22 11:14 Bere[place] Test Pos 12/25/22 11:14 A-a O2 Gradient Not Reportable 12/25/22 11:14 Hematocrit 40.1 % (42-52) L 12/25/22 11:14 Hgb O2 Saturation 96.8 % (95-100) 12/25/22 11:14 Carboxyhemoglobin 1.0 %THgb (0.4-20.1) 12/25/22 11:14 Methemoglobin 1.0 % (0.4-1.5) 12/25/22 11:14 Total Hemoglobin 13.1 g/dL (14-18) L 12/25/22 11:14 Sodium 125.0 mmol/L (131-143) L 12/25/22 11:14 Potassium 4.4 mmol/L (3.5-5.0) 12/25/22 11:14 Glucose 883.0 mg/dL (70-115) H 12/25/22 11:14 Ionized Calcium 1.1 mmol/L (1.1-1.4) 12/25/22 11:14 O2 Delivery Device None 12/25/22 11:14 FiO2 2.0 % 12/25/22 09:45 Social Services Aide ID [email or web address] 12/25/22 11:14 Sodium Cancelled 12/25/22 11:52 Potassium Cancelled 12/25/22 11:52 Chloride Cancelled 12/25/22 11:52 Carbon Dioxide Cancelled 12/25/22 11:52 Anion Gap Cancelled 12/25/22 11:52 BUN Cancelled 12/25/22 11:52 Creatinine Cancelled 12/25/22 11:52 GFR Calculation Cancelled 12/25/22 11:52 Glucose Cancelled 12/25/22 11:52 POC Glucose > 600 mg/dL (70-110) H* 12/25/22 11:11 Calculated Osmolality Cancelled 12/25/22 11:52 Calcium Cancelled 12/25/22 11:52 Phosphorus 8.7 mg/dL (2.5-4.5) H* 12/25/22 09:38 Magnesium 2.4 mg/dL (1.7-2.3) H 12/25/22 09:38 Total Bilirubin 0.3 mg/dL (0.15-1.2) 12/25/22 09:38 AST 26 U/L (0-40) 12/25/22 09:38 ALT 71 U/L (0-41) H 12/25/22 09:38 Alkaline Phosphatase 174 U/L (40-130) H 12/25/22 09:38 Creatine Kinase 38 U/L (39-308) L 12/25/22 09:38 Total Protein 5.4 g/dL (6.6-8.7) L 12/25/22 09:38 Albumin 3.3 g/dL (3.5-5.2) L 12/25/22 09:38 Globulin 2.1 g/dL (1.3-4.6) 12/25/22 09:38 Lipase 11 U/L (13-60) L 12/25/22 09:38 Vitamin B12 437 pg/mL (232-1245) 12/25/22 09:38 Random Cortisol 51.94 ug/dL (2.47-19.5) H 12/25/22 09:38 Urine Color Light yellow (Yellow) 12/25/22 10:11 Urine Appearance Clear (CLEAR) 12/25/22 10:11 Urine pH 5 (5-7) 12/25/22 10:11 Ur Specific [place] 1.015 (1.005-1.030) 12/25/22 10:11 Urine Protein Neg (Negative) 12/25/22 10:11 Urine Glucose (UA) 4+ (Normal) H 12/25/22 10:11 Urine Ketones 3+ (Negative) H 12/25/22 10:11 Urine Blood Trace (Negative) H 12/25/22 10:11 Urine Nitrate Negative (Negative) 12/25/22 10:11 Urine Bilirubin Neg (Negative) 12/25/22 10:11 Urine Urobilinogen Neg mg/dL (Negative) 12/25/22 10:11 Ur Leukocyte Esterase Negative (Negative) 12/25/22 10:11 Urine RBC Rare /hpf (0-2) 12/25/22 10:11 Urine WBC None /hpf (0-5) 12/25/22 10:11 Ur Squamous Epith Cells None /hpf (0-5) 12/25/22 10:11 Amorphous Sediment Not Reportable 12/25/22 10:11 Urine Bacteria None /hpf (NONE) 12/25/22 10:11 Urine Opiates Screen Negative ng/mL (Negative) 12/25/22 10:11 Ur Barbiturates Screen Negative ng/mL (Negative) 12/25/22 10:11 Ur Phencyclidine Scrn Negative ng/mL (Negative) 12/25/22 10:11 Ur Amphetamines Screen Negative ng/mL (Negative) 12/25/22 10:11 U Benzodiazepines Scrn Negative ng/mL (Negative) 12/25/22 10:11 Urine Cocaine Screen Negative ng/mL (Negative) 12/25/22 10:11 U Marijuana (THC) Screen Negative ng/mL (Negative) 12/25/22 10:11 Serum Ketones Positive (Negative) H 12/25/22 09:38 Critical Care Time Critical Care Time: Critical Care Time: Yes Total Critical Care Time: 45 Attestation: The high probability of a clinically significant, sudden or life threatening deterioration of the patient's metabolic/endocrine/renal system(s) required my full and direct attention, intervention and personal management. The critical care time is as shown. This time is in addition to time spent performing any reported procedures but includes the following: [x] Data and vital sign review and interpretation [x] Patient assessment, examination and intervention [x] Documentation [x] Medication orders and management Discharge Plan Discharge Patient Disposition: Admitted As Inpatient Admit Provider: Kari Barboza Clinical Impression: Diabetic ketoacidosis, Diabetes type 1, uncontrolled, Hypothermia not due to cold exposure, Transaminitis Condition: Stable Coding Level of Care Code ED Hotel Houseman for Jazmín Agosto
[2022-12-25] MEDS: ondansetron 2 mg/ML SDV 2 mL 4 MG IVP (09:38)
--- NOTE | 2022-12-25 09:40 | ECG_ITS ---
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
[2022-12-25] MEDS: sodium chloride 0.9% 1,000 ML 999 ML IV ×5 (09:44→11:29)
[2022-12-25 09:46] LABS: Basophils # 0.2 10^3/uL (0.0-0.1); Basophils % 0.4 %; Hematocrit 44.6 % (42.0-52.0); Lymphocytes # 3.1 10^3/uL (0.8-4.8); Lymphocytes % 7.6 %; Mean Corpuscular HGB Conc 29.1 g/dL (30.0-36.0); Mean Corpuscular Hemoglobin 29.9 pg (28.0-34.0); Mean Corpuscular Volume 102.5 fl (80-94); Mean Platelet Volume 11.1 fL (7.4-10.4); Monocytes % 4.9 %; Neutrophils # 34.14 10^3/uL (1.8-7.7); Neutrophils % 85.4 %; Nucleated Red Blood Cells % 0 %; Platelet Count 459 10^3/cmm (130-400); Red Blood Count 4.35 10^6/uL (4.1-5.3); Red Cell Distribution Width 12.9 % (12.1-15.1)
[2022-12-25 09:56] LABS: Arterial Blood Gas Hematocrit 39.2 % (42-52); Base Excess ABG -29.6 mmol/L (-2.0-2.0); Blood Gas Allen Test Pos; Blood Gas Sample Site Brachial, right; Blood Gas Sample Type Arterial; Carboxyhemoglobin 0.9 %THgb (0.4-20.1); HCO3 ABG 1.6 mmol/L (22-26); HGB O2 Sat 97.1 % (95-100); Ionized Calcium Level - ABG 1.2 mmol/L (1.1-1.4); Methemoglobin 1.1 % (0.4-1.5); Oxygen Device NC; Oxygen Saturation ABG 99.2; Potassium Level - ABG 5.5 mmol/L (3.5-5.0); Total Hemoglobin 12.8 g/dL (14-18)
[2022-12-25 09:57] LABS: ABG PCO2 7.8 mmHg (35-45); ABG PH Result 6.91 (7.35-7.45)
[2022-12-25 10:03] LABS: Alanine Aminotransferase 71 U/L (0-41); Albumin Level 3.3 g/dL (3.5-5.2); Alkaline Phosphatase 174 U/L (40-130); Anion Gap 45.1 (5-19); Aspartate Amino Transferase 26 U/L (0-40); Blood Urea Nitrogen 28 mg/dL (6-20); Calcium 8.3 mg/dL (8.5-10.5); Chloride 75 mmol/L (98-107); Creatine Phosphokinase 38 U/L (39-308); Globulin 2.1 g/dL (1.3-4.6); Glomerular Filtration Rate 49.4 mL/min (90-130); Lipase 11 U/L (13-60); Magnesium 2.4 mg/dL (1.7-2.3); Potassium 6.1 mmol/L (3.5-5.1); Total Bilirubin 0.3 mg/dL (0.15-1.2); Total Protein 5.4 g/dL (6.6-8.7)
[2022-12-25 10:12] LABS: Osmolality Calculated 306 mOsm/kg (285-295)
--- NOTE | 2022-12-25 10:12 | PC.PHAR ---
pt unable to verify medications-called pts contacts caryl wyatt [phone] states she use to help the pt with his meds but is no longer with the pt-called pts other contact marion alva [phone] not accepting calls-carvedilol 6.25mg bid last filled 09/10/22 30d/s,lexapro 20mg daily last filled 09/21/22 30d/s,and lisinopril 20mg daily filled 09/13/22 30d/s-
[2022-12-25 10:13] LABS: Ketone (Acetest) Serum Positive (Negative)
[2022-12-25 10:33] LABS: Carbon Dioxide 3 mmol/L (22-29); Glucose 1122 mg/dL (65-115); Phosphorus 8.7 mg/dL (2.5-4.5); Sodium 117 mmol/L (136-145)
[2022-12-25] MEDS: insulin regular-human 100 units/1 mL 10 UNIT IVP (10:37)
[2022-12-25] MEDS: insulin regular-human 250 UNIT in sodium chloride 0.9% 250 ML 29.29 UNIT IV (10:38)
[2022-12-25] MEDS: potassium chloride premix 100 ML 25 MEQ IV (10:39)
[2022-12-25 10:46] LABS: Amphetamines Screen Urine Negative (Negative); Barbiturates Screen Urine Negative (Negative); Benzodiazepines Screen Urine Negative (Negative); Cocaine Screen Urine Negative (Negative); Opiate Screen Urine Negative (Negative); PCP Screen Urine Negative (Negative); THC Screen Urine Negative (Negative)
[2022-12-25 10:51] LABS: Add Urine Microscopic? YES; Bilirubin Urine Neg (Negative); Blood Urine Trace (Negative); Glucose Urine UA 4+ (Normal); Ketones Urine 3+ (Negative); Leukocyte Esterase Urine Negative (Negative); Nitrate Urine Negative (Negative); Protein Urine Neg (Negative); Specific Gravity, Urine 1.015 (1.005-1.030); Urine Appearance Clear (CLEAR); Urine Color Light yellow (Yellow); Urobilinogen Urine Neg (Negative); pH Urine 5 (5-7)
[2022-12-25 10:52] LABS: Add Urine Culture? No; RBC Urine RARE /hpf (0-2)
[2022-12-25 11:25] LABS: Arterial Blood Gas Hematocrit 40.1 % (42-52); Base Excess ABG -30.7 mmol/L (-2.0-2.0); Blood Gas Allen Test Pos; Blood Gas Sample Site Brachial, right; Blood Gas Sample Type Arterial; HCO3 ABG 1.6 mmol/L (22-26); HGB O2 Sat 96.8 % (95-100); Ionized Calcium Level - ABG 1.1 mmol/L (1.1-1.4); Oxygen Saturation ABG 98.8; Potassium Level - ABG 4.4 mmol/L (3.5-5.0); Total Hemoglobin 13.1 g/dL (14-18)
[2022-12-25 11:26] LABS: ABG PCO2 9.1 mmHg (35-45); ABG PH Result 6.85 (7.35-7.45)
--- NOTE | 2022-12-25 11:54 | P.HP_ITS ---
Providers/Chief Complaint Admitting Physician: Kari Barboza MD Primary Care Provider: Peace Brothers MD Chief Complaint: Hyperglycemia History of Present Illness Jean Miller is a 27 year old male with a known history of type 1 diabetes mellitus and previous admissions of diabetic ketoacidosis. Last discharge occurred on December 12 of this year. He presented to the emergency room via EMS from home with mental status change and concern for DKA. Initial blood sugars were greater than 1000. Initial pH was 6.91. He was immediately started on IV fluids and insulin. Also noted at the time of admission was that patient was hypothermic with initial rectal temperature after some preliminary warming at 91.4. Patient was not found outside in the cold and no report of other cold exposure. Patient himself denies any fevers. He has had some nausea but no vomiting. Denies any abdominal pain. He has had some loose nonbloody stools recently, reporting several a day. No headache, earache, sore throat or significant cough nor respiratory symptoms. Denies any open or concerning sores. Denies any dysuria or penile discharge. Has not been on any recent antibiotics that he recalls. Denies IVDA. In the emergency room he received a total of approximately 4 L of fluids as well as some potassium replacement in addition to initiation of insulin therapy. Hospitalist were contacted for admission to the ICU. Current history is limited due to current clinical condition but patient was consistent in answers provided to repeat questioning. Review of Systems General: Reports: Other (ROS as per HPI or as otherwise noted here) Medications/Allergies Home Medications Medication Instructions Recorded Confirmed Last Taken Type blood-glucose meter (OneTouch #1 ea 04/02/22 12/25/22 Unknown Rx Ultra2 Meter kit) blood sugar diagnostic #300 ea 05/12/22 12/25/22 Unknown Rx insulin aspart U-100 100 unit/mL 10 unit (0.1 mL) SUBCUT TID #15 mL 11/09/22 12/25/22 Unknown Rx (3 mL) subcutaneous pen (Novolog FlexPen U-100 Insulin aspart) insulin detemir U-100 100 unit/mL 30 unit (0.3 mL) SUBCUT QPM #15 mL 11/21/22 12/25/22 Unknown Rx (3 mL) subcutaneous pen (Levemir FlexTouch U-100 Insulin) Allergies Allergy/AdvReac Type Severity Reaction Status Date / Time No Known Allergies Allergy Verified 12/25/22 09:43 PFSH Acute PFSH: Medical History (Updated 12/25/22 @ 15:26 by Kari Barboza MD) Amphetamine abuse Diabetes type 1, uncontrolled History of DKA History of thyroid nodule right complex nodule, FNA showed benign 03/2022 Hypertension Hyperthyroidism subclinical Long-term insulin use Psychiatric care Transaminitis Surgical History No history of previous surgery none known Family History Other Family history unknown Social History (Updated 12/25/22 @ 15:13 by Kari Barboza MD) Smoking and tobacco status: current every day smoker cigarettes Packs smoked per day: 1 Alcohol intake: former Substance/Drug Use: current Substance/Drug use type: Methamphetamine Vitals/I&O/Wt Last Vital Signs Temp 91.4 F L 12/25/22 10:16 Pulse 100 12/25/22 10:05 Resp 32 H 12/25/22 09:58 BP 121/92 12/25/22 10:40 Pulse Ox 100 12/25/22 10:40 O2 Del Method 12/25/22 10:10 O2 Flow Rate 2 12/25/22 09:58 12/24/22 12/25/22 12/25/22 22:59 06:59 14:59 Intake Total 3000 / 3000 Balance 3000 / 3000 Weight last 48 hrs Weight 65.771 kg Physical Exam Narrative: Patient is lethargic but arousable. Will answer simple questions and follows commands. He is quite ill-appearing. Pupils are reactive but sluggish. Oral mucosa are severely dry and lips are cracked. Poor dentition are noted but no dental abscess is appreciated at this time. Tympanic membranes with good light reflex bilaterally, no external otitis identified. Neck is supple without lymphadenopathy. Cardiovascular exam reveals a tachycardic but regular rhythm. No murmurs. Lungs are remarkable for tachypnea and Kussmal breathing pattern but clear. Abdomen is soft without any areas of tenderness. No flank pain. Hypoactive bowel sounds. Skin is dry. No sores or lesions to the bottom of the feet. Capillary refill is around 3 seconds. Pulses are 2+ x4. Moves all extremities, face is symmetric. Speech understandable. Data 12/25/22 09:38 12/25/22 09:38 Other Labs: Radiology Impressions Chest X-Ray 12/25/22 09:34 IMPRESSION: No acute cardiopulmonary abnormality. Laboratory Results 12/25/22 09:45 ABG pH 6.91 L* ABG pCO2 7.8 L* ABG pO2 173.0 H ABG HCO3 1.6 L Total Hemoglobin 12.8 L Sodium 117.0 L Potassium 5.5 H Glucose 1036.0 H WBC 40.0 10^3/uL (4.0-10.0) H* 12/25/22 09:38 RBC 4.35 10^6/uL (4.1-5.3) 12/25/22 09:38 Hgb 13.0 g/dL (11.7-16.6) 12/25/22 09:38 Hct 44.6 % (42.0-52.0) 12/25/22 09:38 MCV 102.5 fl (80-94) H 12/25/22 09:38 MCH 29.9 pg (28.0-34.0) 12/25/22 09:38 MCHC 29.1 g/dL (30.0-36.0) L 12/25/22 09:38 RDW 12.9 % (12.1-15.1) 12/25/22 09:38 Plt Count 459 10^3/cmm (130-400) H 12/25/22 09:38 MPV 11.1 fL (7.4-10.4) H 12/25/22 09:38 Neut % (Auto) 85.4 % 12/25/22 09:38 Lymph % (Auto) 7.6 % 12/25/22 09:38 [place] % (Auto) 4.9 % 12/25/22 09:38 Eos % (Auto) 0.0 % 12/25/22 09:38 Baso % (Auto) 0.4 % 12/25/22 09:38 Neut # (Auto) 34.14 10^3/uL (1.8-7.7) H 12/25/22 09:38 Lymph # (Auto) 3.1 10^3/uL (0.8-4.8) 12/25/22 09:38 [place] # (Auto) 2.0 10^3/uL (0.2-0.9) H 12/25/22 09:38 Eos # (Auto) 0.0 10^3/uL (0.0-0.8) 12/25/22 09:38 Baso # (Auto) 0.2 10^3/uL (0.0-0.1) H 12/25/22 09:38 Nucleated RBC % (auto) 0 % 12/25/22 09:38 Nucleated RBCs # 0.0 /100WBC 12/25/22 09:38 Specimen Type Arterial 12/25/22 11:14 Sample Site Brachial, right 12/25/22 11:14 ABG pH 6.85 (7.35-7.45) L* 12/25/22 11:14 ABG pCO2 9.1 mmHg (35-45) L* 12/25/22 11:14 ABG pO2 158.0 mmHg (80.0-100.0) H 12/25/22 11:14 ABG HCO3 1.6 mmol/L (22-26) L 12/25/22 11:14 ABG O2 Saturation 98.8 12/25/22 11:14 ABG Base Excess -30.7 mmol/L (-2.0-2.0) L 12/25/22 11:14 [place] Test Pos 12/25/22 11:14 A-a O2 Gradient Not Reportable 12/25/22 11:14 Hematocrit 40.1 % (42-52) L 12/25/22 11:14 Hgb O2 Saturation 96.8 % (95-100) 12/25/22 11:14 Carboxyhemoglobin 1.0 %THgb (0.4-20.1) 12/25/22 11:14 Methemoglobin 1.0 % (0.4-1.5) 12/25/22 11:14 Total Hemoglobin 13.1 g/dL (14-18) L 12/25/22 11:14 Sodium 125.0 mmol/L (131-143) L 12/25/22 11:14 Potassium 4.4 mmol/L (3.5-5.0) 12/25/22 11:14 Glucose 883.0 mg/dL (70-115) H 12/25/22 11:14 Ionized Calcium 1.1 mmol/L (1.1-1.4) 12/25/22 11:14 O2 Delivery Device None 12/25/22 11:14 FiO2 2.0 % 12/25/22 09:45 Pension Consultant ID [email or web address] 12/25/22 11:14 Sodium 117 mmol/L (136-145) L* 12/25/22 09:38 Potassium 6.1 mmol/L (3.5-5.1) H 12/25/22 09:38 Chloride 75 mmol/L (98-107) L 12/25/22 09:38 Carbon Dioxide 3 mmol/L (22-29) L* 12/25/22 09:38 Anion Gap 45.1 (5-19) H 12/25/22 09:38 BUN 28 mg/dL (6-20) H 12/25/22 09:38 Creatinine 1.7 mg/dL (0.7-1.2) H 12/25/22 09:38 GFR Calculation 49.4 mL/min (90-130) L 12/25/22 09:38 Glucose 1122 mg/dL (65-115) H* 12/25/22 09:38 POC Glucose > 600 mg/dL (70-110) H* 12/25/22 09:29 Calculated Osmolality 306 mOsm/kg (285-295) H 12/25/22 09:38 Calcium 8.3 mg/dL (8.5-10.5) L 12/25/22 09:38 Phosphorus 8.7 mg/dL (2.5-4.5) H* 12/25/22 09:38 Magnesium 2.4 mg/dL (1.7-2.3) H 12/25/22 09:38 Total Bilirubin 0.3 mg/dL (0.15-1.2) 12/25/22 09:38 AST 26 U/L (0-40) 12/25/22 09:38 ALT 71 U/L (0-41) H 12/25/22 09:38 Alkaline Phosphatase 174 U/L (40-130) H 12/25/22 09:38 Creatine Kinase 38 U/L (39-308) L 12/25/22 09:38 Total Protein 5.4 g/dL (6.6-8.7) L 12/25/22 09:38 Albumin 3.3 g/dL (3.5-5.2) L 12/25/22 09:38 Globulin 2.1 g/dL (1.3-4.6) 12/25/22 09:38 Lipase 11 U/L (13-60) L 12/25/22 09:38 Urine Color Light yellow (Yellow) 12/25/22 10:11 Urine Appearance Clear (CLEAR) 12/25/22 10:11 Urine pH 5 (5-7) 12/25/22 10:11 Ur Specific [place] 1.015 (1.005-1.030) 12/25/22 10:11 Urine Protein Neg (Negative) 12/25/22 10:11 Urine Glucose (UA) 4+ (Normal) H 12/25/22 10:11 Urine Ketones 3+ (Negative) H 12/25/22 10:11 Urine Blood Trace (Negative) H 12/25/22 10:11 Urine Nitrate Negative (Negative) 12/25/22 10:11 Urine Bilirubin Neg (Negative) 12/25/22 10:11 Urine Urobilinogen Neg mg/dL (Negative) 12/25/22 10:11 Ur Leukocyte Esterase Negative (Negative) 12/25/22 10:11 Urine RBC Rare /hpf (0-2) 12/25/22 10:11 Urine WBC None /hpf (0-5) 12/25/22 10:11 Ur Squamous Epith Cells None /hpf (0-5) 12/25/22 10:11 Amorphous Sediment Not Reportable 12/25/22 10:11 Urine Bacteria None /hpf (NONE) 12/25/22 10:11 Urine Opiates Screen Negative ng/mL (Negative) 12/25/22 10:11 Ur Barbiturates Screen Negative ng/mL (Negative) 12/25/22 10:11 Ur Phencyclidine Scrn Negative ng/mL (Negative) 12/25/22 10:11 Ur Amphetamines Screen Negative ng/mL (Negative) 12/25/22 10:11 U Benzodiazepines Scrn Negative ng/mL (Negative) 12/25/22 10:11 Urine Cocaine Screen Negative ng/mL (Negative) 12/25/22 10:11 U Marijuana (THC) Screen Negative ng/mL (Negative) 12/25/22 10:11 Serum Ketones Positive (Negative) H 12/25/22 09:38 A&P Assessment and plan (1) Diabetic ketoacidosis: Severe DKA patient with type 1 diabetes mellitus and prior episodes of DKA. He was not verbally responsive at presentation, only grimacing stimulation, consistent with at least early coma. Initial blood sugars greater than 1000, pH 6.9 (with subsequent drop to 6.85), HCO3 1.6, anion gap 45. Has associated hyperkalemia, hyperphosphatemia, dehydration and associated impaired renal function, pseudohyponatremia, leukocytosis, normal lipase, ketosis, lethargy, tachycardia, nausea. A1c 11.7 in November 2022. Slowly showing signs of imp rovement. (2) Hypothermia not due to cold exposure: Initial rectal temperature after some early external rewarming was 91.4. Patient denies on repeated questioning being outside in the cold. He came from home with no indication that there was no heat reported. Urine drug screen is unremarkable currently including for amphetamines which he states he has used within the last few days. He may have ingested something else that could impair thermoregulation. He does have a history of hyperthyroidism but TSH was at the low range of normal in November. No clear foci of infection is identified. While tachycardic, normal blood pressures. No report of fevers. He does have leukocytosis with left shift which is not unusual in the setting of acute DKA. He has poor dentition and reports some diarrhea without any abdominal pain. Nausea without vomiting. Denies IV drug use. Denies alcohol or ethanol use. Normal carboxyhemaglobin on intial ABG. Beyond findings expected with DKA, neurological exam unrevealing. Hypoalbumenmia and probably at least mild malnutrition present on admission. Dysregulation may be from diabetes but has not been noted previously on review of prior records. (3) Hyperthyroidism: Subclinical, TSH as low as 0.14 in mid 2021, benign right sided thyroid nodule by FNA in 03/2022, TSH 0.60 in November 2022, has seen Dr Jones in the past but does not see regularly. (4) Transaminitis: Non reactive hepatitis panel in November 2022, limited to ALT elevation with mild elevation in alkaline phosphatase. (5) Amphetamine abuse: Regular use, not currently interested in rehabilitation. (6) Nicotine dependence, cigarettes, uncomplicated: Plan Inpatient admission ICU care Continue insulin drip titration is indicated with every hour Accu-Cheks versus serum glucose when not readable Continue hydration, is status post 4 to 5 L IV fluid prior to arrival to the ICU Has had urine output Given worsening acidemia, bicarb has been ordered Continue potassium Serial labs every 4 hours tonight with adjustments to fluids and electrolyte replacement as needed Sips and chips until blood sugars and other labs are more improved and he is more alert Hemoglobin A1c Secondary to degree of hypothermia, will check random cortisol level, vitamin B12 and repeat TSH Bear hugger until temperature is improved Blood cultures Empiric Zosyn GI prophylaxis DVT prophylaxis Nicotine replacement if needed Monitor for acute clinical change Supportive care otherwise Plans reviewed with nursing staff, discussed with respiratory, lab and pharmacy Findings, concerns and plans were discussed with patient and he was given an op portunity to ask questions which primarily included when he could add some ice chips. Anticipate discharge home with follow-up to primary care provider, possibly with endocrinology and again reinforcement of importance of regular utilization of insulin regimen to decrease risk of recurrent DKA and subsequent long-term complications from diabetes. Full code Attestations Medical Necessity Statement*: Anticipated stay greater than two midnights inpatient presenting with severe DKA as described above. Presenting blood sugars were greater than 1000 and pH less than 7. At high risk of progressive clinical decline up to and including the possibility of without aggressive clinical management as described. Coding Level of Care Code Critical Care >/= 30 minutes Critical care time (in minutes): 95 The high probability of a clinically significant, sudden or life threatening deterioration, as referenced in this documentation, required my full and direct attention, intervention and personal management. The critical care time shown is in addition to time spent performing any reported separately billable procedures and includes the following: [x] Data and vital sign review and interpretation [x ] Patient assessment, examination and intervention [x] Medication orders and management [x] Patient/Family updates as able [x] Care Coordination and Documentation. Diagnoses Diabetic ketoacidosis E11.10 Hypothermia not due to cold exposure R68.0 Hyperthyroidism E05.90 Transaminitis R74.01 Amphetamine abuse F15.10 Nicotine dependence, cigarettes, uncomplicated F17.210
[2022-12-25] MEDS: sodium bicarbonate 8.4% 1 mEq/mL 50mL Syr 50 MEQ IVP (12:21)
--- NOTE | 2022-12-25 12:42 | PC.NURSE ---
PT HAS VOIDED 2L OF URINE
[2022-12-25 13:09] LABS: Glucose Point of Care > 600 mg/dL (70-110)
[2022-12-25] MEDS: enoxaparin 40 mg/0.4 mL Syringe SUBCUT (13:33)
[2022-12-25] MEDS: pantoprazole 40 mg SDV IVP (13:33)
[2022-12-25] MEDS: piperacillin-tazobactam 3.375 GM in sodium chloride 0.9% (plus) 50 ML IV ×2 (14:22→20:35)
[2022-12-25 14:23] LABS: Cortisol Random 51.94 ug/dL (2.47-19.5)
[2022-12-25 14:24] LABS: Blood Urea Nitrogen 24 mg/dL (6-20); Calcium 7.9 mg/dL (8.5-10.5); Chloride 95 mmol/L (98-107); Glomerular Filtration Rate 73.8 mL/min (90-130); Osmolality Calculated 305 mOsm/kg (285-295); Sodium 132 mmol/L (136-145)
[2022-12-25 14:25] LABS: Anion Gap 36.8 (5-19); Potassium 4.8 mmol/L (3.5-5.1)
[2022-12-25 14:27] LABS: Carbon Dioxide 5 mmol/L (22-29); Glucose 575 mg/dL (65-115)
[2022-12-25 15:36] LABS: Vitamin B12 437 pg/mL (232-1245)
[2022-12-25 16:22] LABS: Glucose Point of Care 222 mg/dL (70-110)
[2022-12-25] MEDS: dextrose 5% 1,000 ML 100 ML IV (16:50)
[2022-12-25 17:49] LABS: Glucose Point of Care 117 mg/dL (70-110)
[2022-12-25 17:55] LABS: ABG PCO2 32.7 mmHg (35-45); ABG PH Result 7.36 (7.35-7.45); Blood Gas Allen Test Pos; Blood Gas Operator Identificat MONRO; Blood Gas Sample Site Radial, right; Blood Gas Sample Type Arterial; Carboxyhemoglobin 0.9 %THgb (0.4-20.1); HCO3 ABG 18.5 mmol/L (22-26); HGB O2 Sat 97.3 % (95-100); Ionized Calcium Level - ABG 1.2 mmol/L (1.1-1.4); Methemoglobin 0.3 % (0.4-1.5); Oxygen Device ROOM AIR; Oxygen Saturation ABG 98.6; PO2 ABG 86.9 mmHg (80.0-100.0); Potassium Level - ABG 3.7 mmol/L (3.5-5.0); Total Hemoglobin 12.7 g/dL (14-18)
[2022-12-25 18:40] LABS: Anion Gap 13.8 (5-19); Blood Urea Nitrogen 17 mg/dL (6-20); Calcium 7.9 mg/dL (8.5-10.5); Carbon Dioxide 19 mmol/L (22-29); Chloride 107 mmol/L (98-107); Glomerular Filtration Rate 117.8 mL/min (90-130); Glucose 108 mg/dL (65-115); Magnesium 1.8 mg/dL (1.7-2.3); Osmolality Calculated 284 mOsm/kg (285-295); Phosphorus 1.5 mg/dL (2.5-4.5); Potassium 3.8 mmol/L (3.5-5.1); Sodium 136 mmol/L (136-145)
--- NOTE | 2022-12-25 19:04 | PC.NURSE ---
this nurse notified Dr. Barboza anion gap is closed, orders received per MAR
[2022-12-25] MEDS: D5-NS 0.45% + KCL 20 mEq 20 MEQ/1,000 ML BAG 100 MEQ IV (19:34)
[2022-12-25 19:45] LABS: Glucose Point of Care 72 mg/dL (70-110)
[2022-12-25] MEDS: potassium phosphate (mEq K) 40 MEQ in sodium chloride 0.9% (100 ml) 100 ML 27.25 MEQ IV (20:36)
[2022-12-25 21:05] LABS: Glucose Point of Care 97 mg/dL (70-110)
[2022-12-25 21:39] LABS: Glucose Point of Care 90 mg/dL (70-110)
--- NOTE | 2022-12-25 21:46 | PC.NURSE ---
Contacted Hospitalist Dr. Soriano at 1957 regarding patient blood glucose and orders. Checked patients blood glucose at 1930 and glucose was 72. Orders were received by day shift RN to d/c bicard drip, give 20u lantus at 1999 then d/c insulin drip and dextrose at 2100 and labs at 2200. Informed hospitalist ETHANOL OPERATOR. New orders to give potassium phosphate, increase dextrose with 1/2 NS + KCL from 100ml/hr to 150ml/hr, new targets of 150 (low) and 200 (high), hold lantus and sliding scale until glucose is up and hospitalist approves to give. Updating Dr. Soriano via volte and telephone as ordered.
[2022-12-25 22:33] LABS: Glucose Point of Care 107 mg/dL (70-110)
[2022-12-25 22:53] LABS: Anion Gap 15.2 (5-19); Blood Urea Nitrogen 14 mg/dL (6-20); Calcium 7.5 mg/dL (8.5-10.5); Carbon Dioxide 19 mmol/L (22-29); Chloride 106 mmol/L (98-107); Glomerular Filtration Rate 137.4 mL/min (90-130); Glucose 114 mg/dL (65-115); Magnesium 1.7 mg/dL (1.7-2.3); Osmolality Calculated 283 mOsm/kg (285-295); Phosphorus 3.3 mg/dL (2.5-4.5); Potassium 4.2 mmol/L (3.5-5.1); Sodium 136 mmol/L (136-145)
[2022-12-25] MEDS: insulin glargine 100 units/1 mL 15 UNIT SUBCUT (23:32)
--- NOTE | 2022-12-25 23:48 | PC.NURSE ---
2330- Order from Dr. Soriano to give 15 units Lantus. Cut off insulin drip and fluids 45 minutes after lantus administration. Order to not check sliding scale until 0800 on 12/26/22.
[2022-12-26] VITALS (13 sets, daily range): BP systolic 132–153; BP diastolic 87–108; PULSE 100–125; RESP 14–25; TEMP 37.1–37.2; O2SAT 96–99; BMI 19.8
[2022-12-26] MEDS: piperacillin-tazobactam 3.375 GM in sodium chloride 0.9% (plus) 50 ML IV ×2 (04:35→13:47)
[2022-12-26 04:39] LABS: Basophils % 0.2 %; Hematocrit 37.9 % (42.0-52.0); Hemoglobin 12.4 g/dL (11.7-16.6); Lymphocytes # 2.2 10^3/uL (0.8-4.8); Mean Corpuscular HGB Conc 32.7 g/dL (30.0-36.0); Mean Corpuscular Volume 88.8 fl (80-94); Monocytes # 0.9 10^3/uL (0.2-0.9); Monocytes % 4.4 %; Neutrophils # 16.64 10^3/uL (1.8-7.7); Neutrophils % 83.7 %; Nucleated Red Blood Cells % 0 %; Platelet Count 312 10^3/cmm (130-400); Red Blood Count 4.27 10^6/uL (4.1-5.3); Red Cell Distribution Width 13.1 % (12.1-15.1); White Blood Count 19.9 10^3/uL (4.0-10.0)
[2022-12-26 04:41] LABS: INR 1.11 (0.8-1.2)
[2022-12-26 04:54] LABS: Alanine Aminotransferase 57 U/L (0-41); Albumin Level 2.9 g/dL (3.5-5.2); Alkaline Phosphatase 102 U/L (40-130); Anion Gap 20.5 (5-19); Aspartate Amino Transferase 21 U/L (0-40); Blood Urea Nitrogen 14 mg/dL (6-20); Calcium 7.8 mg/dL (8.5-10.5); Carbon Dioxide 17 mmol/L (22-29); Chloride 99 mmol/L (98-107); Globulin 1.8 g/dL (1.3-4.6); Glomerular Filtration Rate 117.8 mL/min (90-130); Glucose 347 mg/dL (65-115); Magnesium 1.7 mg/dL (1.7-2.3); Osmolality Calculated 288 mOsm/kg (285-295); Phosphorus 2.4 mg/dL (2.5-4.5); Potassium 4.5 mmol/L (3.5-5.1); Sodium 132 mmol/L (136-145); Thyroid Stimulating Hormone 0.25 uIU/mL (0.27-4.20); Total Bilirubin 0.3 mg/dL (0.15-1.2); Total Protein 4.7 g/dL (6.6-8.7)
[2022-12-26 06:22] LABS: Estmated Average Glucose 283; Hemoglobin A1C 11.5 % (4.0-6.0)
[2022-12-26 07:03] LABS: Glucose Point of Care > 600 mg/dL (70-110)
[2022-12-26 07:37] LABS: Glucose Point of Care 284 mg/dL (70-110)
[2022-12-26] MEDS: insulin lispro 100 unit/1 mL SUBCUT ×2 (08:00→10:55)
[2022-12-26 10:35] LABS: Anion Gap 15.6 (5-19); Blood Urea Nitrogen 11 mg/dL (6-20); Calcium 8.3 mg/dL (8.5-10.5); Carbon Dioxide 20 mmol/L (22-29); Chloride 100 mmol/L (98-107); Glomerular Filtration Rate 117.8 mL/min (90-130); Glucose 172 mg/dL (65-115); Osmolality Calculated 277 mOsm/kg (285-295); Potassium 3.6 mmol/L (3.5-5.1); Sodium 132 mmol/L (136-145)
[2022-12-26 10:51] LABS: Glucose Point of Care 150 mg/dL (70-110)
[2022-12-26] MEDS: sodium chloride 0.9% 1,000 ML 100 ML IV (10:54)
--- NOTE | 2022-12-26 12:12 | PM.PN ---
Subjective Subjective: seen this am gap was opened again lantus 15 was given yesterday awaiting next bmp pt states he forgot his insulin dose. prior to missing the dose, he was fine and has no issues Vitals/I&O/Wt Last Vital Signs Temp 98.8 F 12/26/22 04:00 Pulse 120 H 12/26/22 10:00 Resp 21 H 12/26/22 10:00 BP 138/99 12/26/22 10:00 Pulse Ox 97 12/26/22 10:00 O2 Del Method 12/26/22 04:00 O2 Flow Rate 2 12/25/22 09:58 12/25/22 12/26/22 12/26/22 22:59 06:59 14:59 Intake Total 1329.473 / 4376.825 455.425 / 4832.250 Output Total 1999 Balance 1329.473 / 2376.825 455.425 / 2832.250 Weight last 48 hrs Weight 60.895 kg Weight 65.771 kg Physical Exam Narrative: Lethargic and fatigued Thin lean young male Answers appropriately No signs of fever normal s1, s2 Abdomen soft, non tender Lower extremity no edema Data 12/26/22 04:03 12/26/22 10:04 Micro: Microbiology 12/25/22 18:12 Blood Culture - Preliminary Blood SPECIMEN COLLECTED 12/25/22 13:36 Blood Culture - Preliminary Blood SPECIMEN COLLECTED A&P Assessment and plan (1) Diabetic ketoacidosis: Severe DKA patient with type 1 diabetes mellitus and prior episodes of DKA. Gap open still follow bmp will bridge to lantus when appropriate (2) Hypothermia not due to cold exposure: rectal temp on admit was 91.3 temp normal today 98.8 (3) Hyperthyroidism: Subclinical, TSH as low as 0.14 in mid 2021, benign right sided thyroid nodule by FNA in 03/2022, TSH 0.60 in November 2022, has seen Dr Jones in the past but does not see regularly. (4) Transaminitis: Non reactive hepatitis panel in November 2022, limited to ALT elevation with mild elevation in alkaline phosphatase. (5) Amphetamine abuse: Regular use, not currently interested in rehabilitation. (6) Nicotine dependence, cigarettes, uncomplicated: Plan Serial labs every 4 hours tonight with adjustments to fluids and electrolyte replacement as needed Hemoglobin A1c Secondary to degree of hypothermia, will check random cortisol level: 48, vitamin B12 and repeat TSH: 025 Blood cultures Empiric Zosyn GI prophylaxis DVT prophylaxis Nicotine replacement if needed Monitor for acute clinical change Supportive care otherwise Anticipate discharge home with follow-up to primary care provider, possibly with endocrinology and again reinforcement of importance of regular utilization of insulin regimen to decrease risk of recurrent DKA and subsequent long-term complications from diabetes. Full code Attestations Medical Necessity Statement*: continue icu level care Diagnoses Diabetic ketoacidosis E11.10 Hypothermia not due to cold exposure R68.0 Hyperthyroidism E05.90 Transaminitis R74.01 Amphetamine abuse F15.10 Nicotine dependence, cigarettes, uncomplicated F17.210
[2022-12-26] MEDS: insulin glargine 100 units/1 mL 30 UNIT SUBCUT (13:45)
[2022-12-26] MEDS: enoxaparin 40 mg/0.4 mL Syringe SUBCUT (13:48)
--- NOTE | 2022-12-26 15:14 | PM.DCS ---
Discharge Providers Date of Admission: 12/25/22 12:17 Date of Discharge: December 26, 2022 Attending Provider at Admission: Kari Barboza MD Attending Provider at Discharge: Leila Morales MD Primary Care Provider: Peace Brothers MD Diagnoses at Discharge Discharge Diagnosis (1) Diabetic ketoacidosis: Status: Resolved (2) Hypothermia not due to cold exposure: Status: Resolved (3) Hyperthyroidism: Status: Chronic Permanent problem details: subclinical (4) Transaminitis: Status: Chronic (5) Amphetamine abuse: Status: Resolved (6) Nicotine dependence, cigarettes, uncomplicated: Status: Chronic Reason for Visit Reason for Visit: Hyperglycemia Brief History: As per Dr. Barboza Jean Miller is a 27 year old male with a known history of type 1 diabetes mellitus and previous admissions of diabetic ketoacidosis.? Last discharge occurred on December 12 of this year.? He presented to the emergency room via EMS from home with mental status change and concern for DKA.? Initial blood sugars were greater than 1000.? Initial pH was 6.91.? He was immediately started on IV fluids and insulin.? Also noted at the time of admission was that patient was hypothermic with initial rectal temperature after some preliminary warming at 91.4.? Patient was not found outside in the cold and no report of other cold exposure.? Patient himself denies any fevers.? He has had some nausea but no vomiting.? Denies any abdominal pain.? He has had some loose nonbloody stools recently, reporting several a day.? No headache, earache, sore throat or significant cough nor respiratory symptoms.? Denies any open or concerning sores.? Denies any dysuria or penile discharge.? Has not been on any recent antibiotics that he recalls. Denies IVDA.? In the emergency room he received a total of approximately 4 L of fluids as well as some potassium replacement in addition to initiation of insulin therapy.? Hospitalist were contacted for admission to the ICU.? Current history is limited due to current clinical condition but patient was consistent in answers provided to repeat questioning. Hospital Course Hospital Course Admitted for DKA. Got better Says he missed few doses of his long acting insulin Discharged home. Stated that if not discharged will sign out AMA> Leukocytosis most likely 2/2 to leukmoid reaction. He had stop following up with endocine. Encouraged him to follow up. Appointment referral given. Physical Exam Narrative: awake alert oriented says he would like to go home otherwise will sign out AMA He has all his scripts and does not need any refills lungs clear, abdomen soft non tender Discharge Data Studies Completed and Pending Completed Studies During Hospitalization Category Date Time Status XR chest 1V portable [id number] Stat Exams 12/25/22 09:34 Completed Pending at discharge Category Date Time Status Blood Culture Stat Lab 12/25/22 18:12 Results Radiology Impressions Chest X-Ray 12/25/22 09:34 IMPRESSION: No acute cardiopulmonary abnormality. Laboratory Results WBC 19.9 10^3/uL (4.0-10.0) H 12/26/22 04:03 RBC 4.27 10^6/uL (4.1-5.3) 12/26/22 04:03 Hgb 12.4 g/dL (11.7-16.6) 12/26/22 04:03 Hct 37.9 % (42.0-52.0) L 12/26/22 04:03 MCV 88.8 fl (80-94) D 12/26/22 04:03 MCH 29.0 pg (28.0-34.0) 12/26/22 04:03 MCHC 32.7 g/dL (30.0-36.0) D 12/26/22 04:03 RDW 13.1 % (12.1-15.1) 12/26/22 04:03 Plt Count 312 10^3/cmm (130-400) D 12/26/22 04:03 MPV 11.0 fL (7.4-10.4) H 12/26/22 04:03 Neut % (Auto) 83.7 % 12/26/22 04:03 Lymph % (Auto) 11.0 % 12/26/22 04:03 [place] % (Auto) 4.4 % 12/26/22 04:03 Eos % (Auto) 0.0 % 12/26/22 04:03 Baso % (Auto) 0.2 % 12/26/22 04:03 Neut # (Auto) 16.64 10^3/uL (1.8-7.7) H 12/26/22 04:03 Lymph # (Auto) 2.2 10^3/uL (0.8-4.8) 12/26/22 04:03 [place] # (Auto) 0.9 10^3/uL (0.2-0.9) 12/26/22 04:03 Eos # (Auto) 0.0 10^3/uL (0.0-0.8) 12/26/22 04:03 Baso # (Auto) 0.0 10^3/uL (0.0-0.1) 12/26/22 04:03 Nucleated RBC % (auto) 0 % 12/26/22 04:03 Nucleated RBCs # 0.0 /100WBC 12/26/22 04:03 PT 14.60 SECONDS (12.1-14.9) 12/26/22 04:03 INR 1.11 (0.8-1.2) 12/26/22 04:03 Specimen Type Arterial 12/25/22 17:43 Sample Site Radial, right 12/25/22 17:43 ABG pH 7.36 (7.35-7.45) 12/25/22 17:43 ABG pCO2 32.7 mmHg (35-45) L 12/25/22 17:43 ABG pO2 86.9 mmHg (80.0-100.0) 12/25/22 17:43 ABG HCO3 18.5 mmol/L (22-26) L 12/25/22 17:43 ABG O2 Saturation 98.6 12/25/22 17:43 ABG Base Excess -6.0 mmol/L (-2.0-2.0) L 12/25/22 17:43 [place] Test Pos 12/25/22 17:43 A-a O2 Gradient 3.0 mmHg (5-10) L 12/25/22 17:43 Hematocrit 39.0 % (42-52) L 12/25/22 17:43 Hgb O2 Saturation 97.3 % (95-100) 12/25/22 17:43 Carboxyhemoglobin 0.9 %THgb (0.4-20.1) 12/25/22 17:43 Methemoglobin 0.3 % (0.4-1.5) L 12/25/22 17:43 Total Hemoglobin 12.7 g/dL (14-18) L 12/25/22 17:43 Sodium 136.0 mmol/L (131-143) 12/25/22 17:43 Potassium 3.7 mmol/L (3.5-5.0) 12/25/22 17:43 Glucose 109.0 mg/dL (70-115) 12/25/22 17:43 Ionized Calcium 1.2 mmol/L (1.1-1.4) 12/25/22 17:43 O2 Delivery Device Room air 12/25/22 17:43 FiO2 21.0 % 12/25/22 17:43 Area Sales Manager ID [place] 12/25/22 17:43 Sodium 132 mmol/L (136-145) L 12/26/22 10:04 Potassium 3.6 mmol/L (3.5-5.1) 12/26/22 10:04 Chloride 100 mmol/L (98-107) 12/26/22 10:04 Carbon Dioxide 20 mmol/L (22-29) L 12/26/22 10:04 Anion Gap 15.6 (5-19) 12/26/22 10:04 BUN 11 mg/dL (6-20) 12/26/22 10:04 Creatinine 0.8 mg/dL (0.7-1.2) 12/26/22 10:04 GFR Calculation 117.8 mL/min (90-130) 12/26/22 10:04 Glucose 172 mg/dL (65-115) H 12/26/22 10:04 POC Glucose 150 mg/dL (70-110) H 12/26/22 10:48 Estimat Average Glucose 283 12/26/22 04:03 Hemoglobin A1c 11.5 % (4.0-6.0) H 12/26/22 04:03 Calculated Osmolality 277 mOsm/kg (285-295) L 12/26/22 10:04 Calcium 8.3 mg/dL (8.5-10.5) L 12/26/22 10:04 Phosphorus 2.4 mg/dL (2.5-4.5) L 12/26/22 04:03 Magnesium 1.7 mg/dL (1.7-2.3) 12/26/22 04:03 Total Bilirubin 0.3 mg/dL (0.15-1.2) 12/26/22 04:03 AST 21 U/L (0-40) 12/26/22 04:03 ALT 57 U/L (0-41) H 12/26/22 04:03 Alkaline Phosphatase 102 U/L (40-130) 12/26/22 04:03 Creatine Kinase 38 U/L (39-308) L 12/25/22 09:38 Total Protein 4.7 g/dL (6.6-8.7) L 12/26/22 04:03 Albumin 2.9 g/dL (3.5-5.2) L 12/26/22 04:03 Globulin 1.8 g/dL (1.3-4.6) 12/26/22 04:03 Lipase 11 U/L (13-60) L 12/25/22 09:38 Vitamin B12 Cancelled 12/25/22 13:36 TSH 0.25 uIU/mL (0.27-4.20) L 12/26/22 04:03 Random Cortisol 51.94 ug/dL (2.47-19.5) H 12/25/22 09:38 Urine Color Light yellow (Yellow) 12/25/22 10:11 Urine Appearance Clear (CLEAR) 12/25/22 10:11 Urine pH 5 (5-7) 12/25/22 10:11 Ur Specific [place] 1.015 (1.005-1.030) 12/25/22 10:11 Urine Protein Neg (Negative) 12/25/22 10:11 Urine Glucose (UA) 4+ (Normal) H 12/25/22 10:11 Urine Ketones 3+ (Negative) H 12/25/22 10:11 Urine Blood Trace (Negative) H 12/25/22 10:11 Urine Nitrate Negative (Negative) 12/25/22 10:11 Urine Bilirubin Neg (Negative) 12/25/22 10:11 Urine Urobilinogen Neg mg/dL (Negative) 12/25/22 10:11 Ur Leukocyte Esterase Negative (Negative) 12/25/22 10:11 Urine RBC Rare /hpf (0-2) 12/25/22 10:11 Urine WBC None /hpf (0-5) 12/25/22 10:11 Ur Squamous Epith Cells None /hpf (0-5) 12/25/22 10:11 Amorphous Sediment Not Reportable 12/25/22 10:11 Urine Bacteria None /hpf (NONE) 12/25/22 10:11 Urine Opiates Screen Negative ng/mL (Negative) 12/25/22 10:11 Ur Barbiturates Screen Negative ng/mL (Negative) 12/25/22 10:11 Ur Phencyclidine Scrn Negative ng/mL (Negative) 12/25/22 10:11 Ur Amphetamines Screen Negative ng/mL (Negative) 12/25/22 10:11 U Benzodiazepines Scrn Negative ng/mL (Negative) 12/25/22 10:11 Urine Cocaine Screen Negative ng/mL (Negative) 12/25/22 10:11 U Marijuana (THC) Screen Negative ng/mL (Negative) 12/25/22 10:11 Serum Ketones Positive (Negative) H 12/25/22 09:38 Vitals Last Vital Signs Temp 98.8 F 12/26/22 04:00 Pulse 100 12/26/22 14:37 Resp 21 H 12/26/22 10:00 BP 151/106 12/26/22 14:37 Pulse Ox 98 12/26/22 14:37 O2 Del Method 12/26/22 14:37 O2 Flow Rate 2 12/25/22 09:58 Discharge Plan Discharge Patient Disposition: Home Condition: Stable Prescriptions: Continued (DME) blood-glucose meter [OneTouch Ultra2 Meter] Kit See Rx Instructions .Route Qty: 1 0RF Rx Instructions: To use TID to check blood sugar levels before taking insulin Novolog FlexPen U-100 Insulin 100 unit/mL (3 mL) insulin pen 10 unit SUBCUT TID Qty: 15 0RF Levemir FlexTouch U-100 Insuln 100 unit/mL (3 mL) insulin pen 30 unit SUBCUT QPM Qty: 15 3RF (DME) blood sugar diagnostic Strip See Rx Instructions .Route Qty: 300 3RF Rx Instructions: To use TID in onetouch meter to check blood sugar, 90 day supply Discharge Orders: Discharge Order (Routine); Ordered 12/26/22 Ordered By: Leila Morales Referrals: Peace Brothers MD [Primary Care Provider] - 4-7 days Elmer Jones MD [Physician] - 4-7 days (01/03/23 @ 1:30 pm) Discharge Diet: Diabetic Discharge Activity: Resume usual activity Patient Instructions: Opioid Safety Activity Restrictions/Additional Instructions: Please ensure compliance to insulin use and follow up with endocrinology as advised Return to ER if you have worsening of symptoms or development of new symptoms. Discharge Attestations Time Spent in Discharge Care*: less than 30 min Status at Discharge: Cognitive status at discharge: cognitively intact, Behavioral status at discharge: cooperative, Quality Metrics Clinical Quality Measures [ No reported AMI, CVA or VTE this stay] Coding Level of Care Code Acute Code for Chg Fwd Diagnoses Diabetic ketoacidosis E11.10 Hypothermia not due to cold exposure R68.0 Hyperthyroidism E05.90 Transaminitis R74.01 Amphetamine abuse F15.10 Nicotine dependence, cigarettes, uncomplicated F17.210
--- NOTE | 2022-12-26 15:59 | PC.NURSE ---
Patient expressed desire to be D/C or leave AMA. Dr. Morales was notified. D/C orders received. All D/C instructions educated to patient, patient stated he did not need any meds or scripts called in. Patient does not have a PCP
== END 2022-12-26 16:44 | disposition home or self-care (01) | DRG 639 ==
LOC: ER 11:56 → ICU 12:18
PROVIDERS: Admitting Provider Hospitalist; Emergency Provider Family Medicine; PCP Family Medicine; Visit Provider Internal Medicine
DX: E10.11 Type 1 diabetes mellitus with ketoacidosis with coma (principal); R68.0 Hypothermia, not associated with low environmental temperature; T38.3X6A Underdosing of insulin and oral hypoglycemic [antidiabetic] drugs, initial encounter; Z91.138 Patient's unintentional underdosing of medication regimen for other reason; E05.90 Thyrotoxicosis, unspecified without thyrotoxic crisis or storm; F15.10 Other stimulant abuse, uncomplicated; F17.210 Nicotine dependence, cigarettes, uncomplicated; E87.5 Hyperkalemia; E83.39 Other disorders of phosphorus metabolism; E86.0 Dehydration; D72.829 Elevated white blood cell count, unspecified; N28.9 Disorder of kidney and ureter, unspecified; R74.01 Elevation of levels of liver transaminase levels; R00.0 Tachycardia, unspecified; Z79.4 Long term (current) use of insulin
CPT/HCPCS: 36415; 36416; 36600; 71045; 80048; 80051; 80053; 80306; 81001; 82009; 82330; 82533; 82550; 82607; 82805; 82962; 83036; 83690; 83735; 84100; 84443; 85025; 85610; 87040; 93005; 96365; 96366; 96367; 96372; 96375; 96376; 99285; A9270; C9113; J1650; J1815; J2405; J2543; J3480; J7030; J7050; J7070

== ENCOUNTER 2023-02-05 17:03 | Observation (INO) | payer MEDICAID, SELFPAY ==
[2023-02-05] VITALS (56 sets, daily range): BP systolic 96–153; BP diastolic 67–114; PULSE 110–141; RESP 15–35; TEMP 34.4; O2SAT 98–100
[2023-02-05 17:21] LABS: ABG PCO2 8.1 mmHg (35-45); ABG PH Result 7.04 (7.35-7.45); Arterial Blood Gas Hematocrit 45.3 % (42-52); Base Excess ABG -26.2 mmol/L (-2.0-2.0); Blood Gas Allen Test Pos; Blood Gas LPM 1.5 %; Blood Gas Operator Identificat WALCI; Blood Gas Sample Site Radial, right; Blood Gas Sample Type Arterial; HCO3 ABG 2.2 mmol/L (22-26); Oxygen Device NC
--- NOTE | 2023-02-05 17:26 | ED_ITS ---
HPI - Recheck/Abnormal Lab/Rx General: Chief Complaint: Recheck/Abnormal Lab/Rx Stated Complaint: hyperglycemia Time Seen by Provider: 02/05/23 17:06 Source: patient and EMS Mode of arrival: EMS Limitations: no limitations History of Present Illness: 28-year-old male is a type I diabetic states he has not used his insulin over a day he has had history of DKA in the past and he has been noncompliant with his insulin patient here as he was more breathing states he has been nauseous he has not felt very tired his blood sugars been running high he denies any fevers denies any worsening proving factors. Review of Systems Const: Denies: fever(s), chills, body aches or change in appetite Eyes: Denies: blurry vision or eye discomfort ENMT: Denies: throat pain or dental pain Card: Denies: chest pain Resp: Denies: dyspnea GI: Reports: nausea; Denies: abdominal pain, vomiting or diarrhea : Denies: dysuria Musc: Denies: neck pain or back pain Endo: Reports: polydipsia Basim/Lymph: Denies: easy bruising All/Imm: Denies: urticaria PFSH ED PFSH: Medical History Amphetamine abuse Diabetes type 1, uncontrolled History of DKA History of thyroid nodule right complex nodule, FNA showed benign 03/2022 Hypertension Hyperthyroidism subclinical Long-term insulin use Psychiatric care Transaminitis Surgical History No history of previous surgery none known Family History Other Family history unknown Social History Smoking and tobacco status: current every day smoker cigarettes Packs smoked per day: 1 Alcohol intake: former Substance/Drug Use: current Physical Exam Const: COMMON NORMALS: patient oriented x3 GENERAL APPEARANCE: in distress and ill appearing HENMT: COMMON NORMALS: normocephalic and atraumatic HEAD & SCALP: normocephalic and atraumatic Eye: COMMON NORMALS: Equal, round and reactive pupils present and conjunctivae normal CONJUNCTIVA: Yes conjunctivae normal PUPIL: Yes Equal, round and reactive pupils present Neck/C-Spine: COMMON NORMALS: full ROM and supple Chest: COMMONS NORMALS: normal inspection of the chest and normal palpation of entire chest wall Resp: COMMON NORMALS: No retractions, No use of accessory muscles and clear to auscultation bilaterally EFFORT & INSPECTION: Yes tachypneic AUSCULTATION: clear to auscultation bilaterally Cardio: COMMON NORMALS: regular rhythm and No murmurs present (Cardio) RATE: tachycardic RHYTHM: regular rhythm GI: COMMON NORMALS: Normal to inspection, nondistended, normoactive bowel sounds present, Soft to palpation, non-tender and no masses PALPATION: Yes Soft to palpation Extremity: COMMON NORMALS: normal to inspection and full ROM Neuro: COMMON NORMALS: patient oriented x3, moves all extremities and no focal motor deficits Psych: COMMON NORMALS: mental status grossly normal, Normal thought process present and cooperative THOUGHT PROCESS: Normal thought process present Skin: COMMON NORMALS: no rashes or lesions noted and no wounds GENERAL SKIN EXAM: no rashes or lesions noted Course Vital Signs: Vital signs: Vital Signs Pulse Rate 121 H 02/05/23 17:43 Respiratory Rate 32 H 02/05/23 17:43 Blood Pressure 96/75 02/05/23 17:43 Pulse Oximetry 99 02/05/23 17:43 Oxygen Delivery Me thod Nasal Cannula 02/05/23 18:37 Oxygen Flow Rate 2 02/05/23 17:43 MDM - Recheck/Abnormal Lab/Rx Medical Decision Making Patient presents here with DKA likely due to noncompliance on his insulin patient started on insulin drip here along with bicarb I spoke to the hospitalist will admit the ICU at this time. Medical Records I reviewed the patient's medical records. Lab Data 02/05/23 17:30 02/05/23 17:30 Laboratory Results WBC 25.1 10^3/uL (4.0-10.0) H 02/05/23 17:30 RBC 4.95 10^6/uL (4.1-5.3) 02/05/23 17:30 Hgb 14.4 g/dL (11.7-16.6) 02/05/23 17:30 Hct 46.9 % (42.0-52.0) 02/05/23 17:30 MCV 94.7 fl (80-94) H 02/05/23 17: MCH 29.1 pg (28.0-34.0) 02/05/23 17: MCHC 30.7 g/dL (30.0-36.0) 02/05/23 17: RDW 12.9 % (12.1-15.1) 02/05/23 17:30 Plt Count 418 10^3/cmm (130-400) H 02/05/23 17:30 MPV 11.8 fL (7.4-10.4) H 02/05/23 17:30 Neut % (Auto) 81.3 % 02/05/23 17: Lymph % (Auto) 9.4 % 02/05/23 17: [place] % (Auto) 6.1 % 02/05/23 17: Eos % (Auto) 0.1 % 02/05/23: Baso % (Auto) 0.5 % 02/05/23: Neut # (Auto) 20.39 10^3/uL (1.8-7.7) H 02/05/23 17:30 Lymph # (Auto) 2.4 10^3/uL (0.8-4.8) 02/05/23 17: [place] # (Auto) 1.5 10^3/uL (0.2-0.9) H 02/05/23 17:30 Eos # (Auto) 0.0 10^3/uL (0.0-0.8) 02/05/23: Baso # (Auto) 0.1 10^3/uL (0.0-0.1) 02/05/23: Nucleated RBC % (auto) 0 % 02/05/23: Nucleated RBCs # 0.0 /100WBC 02/05/23 17:30 Specimen Type Arterial 02/05/23 17:10 Sample Site Radial, right 02/05/23 17:10 ABG pH 7.04 (7.35-7.45) L* 02/05/23 17:10 ABG pCO2 8.1 mmHg (35-45) L* 02/05/23 17:10 ABG pO2 148.0 mmHg (80.0-100.0) H 02/05/23 17:10 ABG HCO3 2.2 mmol/L (22-26) L 02/05/23 17:10 ABG Base Excess -26.2 mmol/L (-2.0-2.0) L 02/05/23 17:10 [place] Test Pos 02/05/23 17:10 Hematocrit 45.3 % (42-52) 02/05/23 17:10 O2 Delivery Device Nc 02/05/23 17:10 O2 Liters/Min 1.5 % 02/05/23 17:10 Electronic Warfare Specialist ID [place] 02/05/23 17:10 Sodium 117 mmol/L (136-145) L* 02/05/23 17:30 Potassium 7.0 mmol/L (3.5-5.1) H* 02/05/23 17:30 Chloride 68 mmol/L (98-107) L 02/05/23 17:30 Carbon Dioxide 2 mmol/L (22-29) L* 02/05/23 17:30 Anion Gap 54.0 (5-19) H 02/05/23 17:30 BUN 36 mg/dL (6-20) H 02/05/23 17:30 Creatinine 1.9 mg/dL (0.7-1.2) H 02/05/23 17:30 GFR Calculation 43.1 mL/min (90-130) L 02/05/23 17:30 Glucose 1031 mg/dL (65-115) H* 02/05/23 17:30 POC Glucose > 600 mg/dL (70-110) H* 02/05/23 17:28 Calculated Osmolality 304 mOsm/kg (285-295) H 02/05/23 17:30 Calcium 8.5 mg/dL (8.5-10.5) 02/05/23 17:30 Phosphorus 9.9 mg/dL (2.5-4.5) H* 02/05/23 17:30 Magnesium 2.5 mg/dL (1.7-2.3) H 02/05/23 17:30 Total Bilirubin 0.4 mg/dL (0.15-1.2) 02/05/23 17:30 AST 15 U/L (0-40) 02/05/23 17:30 ALT 25 U/L (0-41) 02/05/23 17:30 Alkaline Phosphatase 151 U/L (40-130) H 02/05/23 17:30 Total Protein 6.2 g/dL (6.6-8.7) L 02/05/23 17:30 Albumin 3.8 g/dL (3.5-5.2) 02/05/23 17:30 Globulin 2.4 g/dL (1.3-4.6) 02/05/23 17:30 Serum Ketones Positive (Negative) H 02/05/23 17:30 Critical Care Time Critical Care Time: Critical Care Time: Yes Total Critical Care Time: 45 Attestation: The high probability of a clinically significant, sudden or life threatening deterioration of the patient's endocrine system(s) required my full and direct attention, intervention and personal management. The critical care time is as shown. This time is in addition to time spent performing any reported procedures but includes the following: [x] Data and vital sign review and interpretation [x] Patient assessment, examination and intervention [x] Documentation [x] Medication orders and management Discharge Plan Discharge Patient Disposition: Admitted As Inpatient Admit Provider: Daniel Mosley Clinical Impression: DKA (diabetic ketoacidosis) Condition: Stable Coding Level of Care Code ED Quality Assurance Tester for Jazmín Agosto
[2023-02-05 17:31] LABS: Glucose Point of Care > 600 mg/dL (70-110)
[2023-02-05 17:47] LABS: Basophils # 0.1 10^3/uL (0.0-0.1); Basophils % 0.5 %; Eosinophils % 0.1 %; Hematocrit 46.9 % (42.0-52.0); Hemoglobin 14.4 g/dL (11.7-16.6); Lymphocytes # 2.4 10^3/uL (0.8-4.8); Lymphocytes % 9.4 %; Mean Corpuscular HGB Conc 30.7 g/dL (30.0-36.0); Mean Corpuscular Hemoglobin 29.1 pg (28.0-34.0); Mean Corpuscular Volume 94.7 fl (80-94); Mean Platelet Volume 11.8 fL (7.4-10.4); Monocytes # 1.5 10^3/uL (0.2-0.9); Monocytes % 6.1 %; Neutrophils # 20.39 10^3/uL (1.8-7.7); Neutrophils % 81.3 %; Nucleated Red Blood Cells % 0 %; Platelet Count 418 10^3/cmm (130-400); Red Blood Count 4.95 10^6/uL (4.1-5.3); Red Cell Distribution Width 12.9 % (12.1-15.1); White Blood Count 25.1 10^3/uL (4.0-10.0)
[2023-02-05 18:08] LABS: Ketone (Acetest) Serum Positive (Negative)
[2023-02-05 18:21] LABS: Alanine Aminotransferase 25 U/L (0-41); Albumin Level 3.8 g/dL (3.5-5.2); Alkaline Phosphatase 151 U/L (40-130); Aspartate Amino Transferase 15 U/L (0-40); Blood Urea Nitrogen 36 mg/dL (6-20); Calcium 8.5 mg/dL (8.5-10.5); Chloride 68 mmol/L (98-107); Globulin 2.4 g/dL (1.3-4.6); Glomerular Filtration Rate 43.1 mL/min (90-130); Magnesium 2.5 mg/dL (1.7-2.3); Total Bilirubin 0.4 mg/dL (0.15-1.2); Total Protein 6.2 g/dL (6.6-8.7)
[2023-02-05 18:31] LABS: Osmolality Calculated 304 mOsm/kg (285-295)
[2023-02-05] MEDS: sodium bicarbonate 50 MEQ in sodium chloride 0.45% 1,000 ML 100 MEQ IV (18:38)
[2023-02-05] MEDS: insulin regular-human 250 UNIT in sodium chloride 0.9% 250 ML 18 UNIT IV (18:38)
--- NOTE | 2023-02-05 18:41 | PM.HP ---
Providers/Chief Complaint Admitting Physician: Daniel Mosley MD Chief Complaint: hyperglycemia History of Present Illness Jean iMller is a 28 year old male with history of insulin-dependent diabetes, recurrent admissions for DKA, noncompliance, presented with chief complaint of not feeling well, lethargy and somnolence. Patient has not taken insulin for last 2 days. In the ER he has been diagnosed with severe DKA. Patient is stating that he ran out of insulin at his friend's home however he does have enough supply for insulin and his home. Review of Systems Const: Denies: fever(s) Eyes: Denies: change in vision ENMT: Denies: throat pain Card: Denies: chest pain Resp: Reports: dyspnea GI: Reports: nausea and vomiting : Denies: flank pain Musc: Denies: neck pain Skin/Breast: Denies: rash Neuro: Reports: dizziness and confusion Medications/Allergies Home Medications Medication Instructions Recorded Confirmed Last Taken Type blood-glucose meter (OneTouch #1 ea 04/02/22 02/06/23 Unknown Rx Ultra2 Meter kit) blood sugar diagnostic #300 ea 05/12/22 02/06/23 Unknown Rx insulin aspart U-100 100 unit/mL 10 unit (0.1 mL) SUBCUT TID #15 mL 11/09/22 02/06/23 Unknown Rx (3 mL) subcutaneous pen (Novolog FlexPen U-100 Insulin aspart) insulin detemir U-100 100 unit/mL 30 unit (0.3 mL) SUBCUT QPM #15 mL 11/21/22 02/06/23 Unknown Rx (3 mL) subcutaneous pen (Levemir FlexTouch U-100 Insulin) Allergies Allergy/AdvReac Type Severity Reaction Status Date / Time No Known Allergies Allergy Verified 02/06/23 08:51 PFSH Acute PFSH: Medical History Amphetamine abuse Diabetes type 1, uncontrolled History of DKA History of thyroid nodule right complex nodule, FNA showed benign 03/2022 Hypertension Hyperthyroidism subclinical Long-term insulin use Psychiatric care Transaminitis Surgical History No history of previous surgery none known Family History Other Family history unknown Social History Smoking and tobacco status: current every day smoker cigarettes Packs smoked per day: 1 Alcohol intake: former Substance/Drug Use: current Vitals/I&O/Wt Last Vital Signs Pulse 121 H 02/05/23 17:43 Resp 32 H 02/05/23 17:43 BP 96/75 02/05/23 17:43 Pulse Ox 99 02/05/23 17:43 O2 Del Method Nasal Cannula 02/05/23 17:43 O2 Flow Rate 2 02/05/23 17:43 Weight last 48 hrs Weight 58.967 kg Physical Exam Narrative: Young male Somnolent Tachypneic and tachycardic Dehydrated Abdomen soft S1, S2 Currently on 2LNC Nonfocal neuro exam Data 02/06/23 03:56 02/06/23 03:56 A&P Assessment and plan (1) Diabetes type 1, uncontrolled: (2) Long-term insulin use: (3) Nicotine dependence, cigarettes, uncomplicated: (4) DKA (diabetic ketoacidosis): (5) Acute kidney injury: (6) MICHAEL (acute kidney injury): (7) Hyperkalemia: Plan Severe DKA Metabolic acidosis related to ketones Start insulin drip N.p.o. Start bicarb drip with D5 Target blood glucose 1 4-180mg I would only stop insulin if potassium is less than 3.5. Once blood glucose is less than 250 we will start D5 along insulin Check BMP every 4 hours I will let him eat once anion gap closes Check drug screen High anion gap metabolic acidosis Hyperkalemia: Avoid potassium supplements in the IV fluids MICHAEL related to dehydration, anticipating improvement with fluid hydration Check magnesium and phosphorus level Pseudohyponatremia related to hyperglycemia: Continue normal saline with insulin for now without potassium supplement Full code N.p.o. Admit to ICU Attestations Medical Necessity Statement*: Anticipating discharge within 48 hours Diagnoses Diabetes type 1, uncontrolled E10.65 Long-term insulin use Z79.4 Nicotine dependence, cigarettes, uncomplicated F17.210 DKA (diabetic ketoacidosis) E11.10 Acute kidney injury N17.9 Hyperkalemia E87.5
[2023-02-05 18:42] LABS: Carbon Dioxide 2 mmol/L (22-29); Glucose 1031 mg/dL (65-115); Phosphorus 9.9 mg/dL (2.5-4.5); Sodium 117 mmol/L (136-145)
[2023-02-05] MEDS: sodium chloride 0.9% 1,000 ML 999 ML IV ×3 (19:12→21:30)
[2023-02-05 19:34] LABS: Procalcitonin 0.39 ng/mL (0-0.5)
[2023-02-05 19:54] LABS: Glucose Point of Care > 600 mg/dL (70-110)
[2023-02-05] MEDS: sodium bicarbonate 150 MEQ in dextrose 5% 1,000 ML 100 MEQ IV (19:54)
[2023-02-05 19:59] LABS: Add Urine Microscopic? NO; Charge for UA Resulting for Rev
[2023-02-05] MEDS: enoxaparin 40 mg/0.4 mL Syringe SUBCUT (19:59)
[2023-02-05 20:06] LABS: Bilirubin Urine Neg (Negative); Blood Urine Neg (Negative); Glucose Urine UA 4+ (Normal); Ketones Urine 2+ (Negative); Leukocyte Esterase Urine Negative (Negative); Nitrate Urine Negative (Negative); Protein Urine Neg (Negative); Urine Appearance Clear (CLEAR); Urine Color Yellow (Yellow); Urobilinogen Urine Neg (Negative); pH Urine 5 (5-7)
[2023-02-05 20:24] LABS: Anion Gap 47.1 (5-19); Blood Urea Nitrogen 38 mg/dL (6-20); Calcium 7.8 mg/dL (8.5-10.5); Chloride 76 mmol/L (98-107); Glomerular Filtration Rate 45.8 mL/min (90-130); Potassium 5.1 mmol/L (3.5-5.1); Sodium 121 mmol/L (136-145)
[2023-02-05 20:27] LABS: Carbon Dioxide 3 mmol/L (22-29)
[2023-02-05 20:33] LABS: Osmolality Calculated 303 mOsm/kg (285-295)
[2023-02-05 20:41] LABS: Glucose 851 mg/dL (65-115)
[2023-02-05] MEDS: sodium bicarbonate 8.4% 1 mEq/mL 50mL Syr 50 MEQ IVP ×2 (20:57)
[2023-02-05 21:02] LABS: Amphetamines Screen Urine Negative (Negative); Barbiturates Screen Urine Negative (Negative); Benzodiazepines Screen Urine Negative (Negative); Cocaine Screen Urine Negative (Negative); Opiate Screen Urine Negative (Negative); PCP Screen Urine Negative (Negative); THC Screen Urine Negative (Negative)
[2023-02-05 22:04] LABS: Estmated Average Glucose 280; Hemoglobin A1C 11.4 % (4.0-6.0)
[2023-02-05] MEDS: sodium chloride 0.9% 1,000 ML 200 ML IV (22:37)
--- NOTE | 2023-02-05 22:50 | PC.NURSE ---
Dr. Morales received critical labs on patient.
[2023-02-05 23:06] LABS: Glucose Point of Care 576 mg/dL (70-110)
[2023-02-05 23:06] LABS: Glucose Point of Care 354 mg/dL (70-110)
[2023-02-06] VITALS (77 sets, daily range): BP systolic 123–161; BP diastolic 75–103; PULSE 98–138; RESP 7–28; TEMP 36.9–37.5; O2SAT 93–100
[2023-02-06 00:06] LABS: Glucose Point of Care 225 mg/dL (70-110)
[2023-02-06] MEDS: dextrose 5%-sod chloride 0.9% 1,000 ML 200 ML IV (00:36)
[2023-02-06 01:02] LABS: Anion Gap 25.6 (5-19); Blood Urea Nitrogen 28 mg/dL (6-20); Calcium 7.5 mg/dL (8.5-10.5); Carbon Dioxide 17 mmol/L (22-29); Chloride 96 mmol/L (98-107); Glomerular Filtration Rate 73.2 mL/min (90-130); Glucose 207 mg/dL (65-115); Osmolality Calculated 292 mOsm/kg (285-295); Potassium 3.6 mmol/L (3.5-5.1); Sodium 135 mmol/L (136-145)
[2023-02-06 01:07] LABS: Glucose Point of Care 188 mg/dL (70-110)
--- NOTE | 2023-02-06 01:14 | XRR_ITS ---
PROCEDURE INFORMATION: Exam: XR Chest Exam date and time: 02/06/2023 12:19 AM Age: 28 years old Clinical indication: Abnormal findings; Abnormal diagnostic tests; Abnormal ekg; Patient HX: Wbc of 25k; Additional info: Baseline TECHNIQUE: Imaging protocol: Radiologic exam of the chest. Views: 1 view. COMPARISON: CR XR chest 1V portable [id number] 12/25/2022 9:59 AM FINDINGS: Lungs: Mildly hyperaerated lungs consistent with deep inspiratory effort vs reactive airway disease vs mild COPD . Bilateral peribronchial thicking and/or mild increased perihilar linear markings suggesting bronchitis and/or viral pneumonitis and/or reactive airway disease. Pleural spaces: Unremarkable. No pleural effusion. No pneumothorax. Heart/Mediastinum: Unremarkable. No cardiomegaly. Bones/joints: Unremarkable. XR/XR chest 1V portable [id number] IMPRESSION: 1. Mildly hyperaerated lungs consistent with deep inspiratory effort vs reactive airway disease vs mild COPD . 2. Bilateral peribronchial thicking and/or mild increased perihilar linear markings suggesting bronchitis and/or viral pneumonitis and/or reactive airway disease.
[2023-02-06] MEDS: potassium chloride ER 20 mEq Tablet PO (01:26)
[2023-02-06] MEDS: dextrose 5%-ns + KCl 20 20 MEQ/1,000 ML BAG 150 MEQ IV (01:26)
[2023-02-06 02:04] LABS: Glucose Point of Care 155 mg/dL (70-110)
[2023-02-06 02:59] LABS: Glucose Point of Care 145 mg/dL (70-110)
[2023-02-06 03:57] LABS: Glucose Point of Care 129 mg/dL (70-110)
[2023-02-06 04:12] LABS: Basophils % 0.2 %; Hematocrit 34.4 % (42.0-52.0); Hemoglobin 12.1 g/dL (11.7-16.6); Lymphocytes # 2.2 10^3/uL (0.8-4.8); Lymphocytes % 12.6 %; Mean Corpuscular HGB Conc 35.2 g/dL (30.0-36.0); Mean Corpuscular Hemoglobin 29.4 pg (28.0-34.0); Mean Corpuscular Volume 83.7 fl (80-94); Mean Platelet Volume 10.6 fL (7.4-10.4); Monocytes # 1.7 10^3/uL (0.2-0.9); Neutrophils # 13.19 10^3/uL (1.8-7.7); Neutrophils % 76.3 %; Nucleated Red Blood Cells % 0 %; Platelet Count 268 10^3/cmm (130-400); Red Blood Count 4.11 10^6/uL (4.1-5.3); Red Cell Distribution Width 12.4 % (12.1-15.1); White Blood Count 17.3 10^3/uL (4.0-10.0)
[2023-02-06 04:30] LABS: Anion Gap 13.5 (5-19); Blood Urea Nitrogen 23 mg/dL (6-20); Calcium 7.5 mg/dL (8.5-10.5); Carbon Dioxide 24 mmol/L (22-29); Chloride 101 mmol/L (98-107); Glucose 125 mg/dL (65-115); Magnesium 1.6 mg/dL (1.7-2.3); Osmolality Calculated 285 mOsm/kg (285-295); Potassium 3.5 mmol/L (3.5-5.1); Sodium 135 mmol/L (136-145)
[2023-02-06 04:55] LABS: Phosphorus 2.1 mg/dL (2.5-4.5)
[2023-02-06 05:13] LABS: Glucose Point of Care 120 mg/dL (70-110)
[2023-02-06] MEDS: lidocaine 1% 5 ML in potassium chloride premix 100 ML 26.25 ML IV (05:13)
[2023-02-06] MEDS: sodium chloride 0.9% 1,000 ML 125 ML IV (05:14)
[2023-02-06] MEDS: insulin glargine 100 units/1 mL 30 UNIT SUBCUT (05:15)
--- NOTE | 2023-02-06 05:49 | PM.DCS ---
Discharge Providers Date of Admission: 02/05/23 18:04 Date of Discharge: February 06, 2023 Attending Provider at Admission: Daniel Mosley MD Attending Provider at Discharge: Daniel Mosley MD Reason for Visit Reason for Visit: hyperglycemia Hospital Course Hospital Course 28-year-old male who has had multiple admissions in the hospital for management of DKA, patient is noncompliant with his insulin, patient missed couple dose of insulin at home and presented to the ER with [place]maul breathing, tachypnea tachycardia and dehydration, he was diagnosed with severe DKA, he was managed in ICU with bicarb drip, insulin, he was given IV fluid boluses, overnight his anion gap closed, he was allowed to eat, his hemoglobin A1c is around 11.4, MICHAEL, hyperkalemia resolved. Pseudohyponatremia related to hyperglycemia resolved as well. Patient is stating he has have enough supply of insulin at home, I counseled him to increase his Levemir dose from 30 units to at least 33 to 35 units because he is stating that his blood sugar varies between 180-200mg. for sinus tachycardia I have asked ICU nurse to give him 500 mL bolus before his discharge. Physical Exam Narrative: Awake and alert GCS 15 Signs of dehydration improving Doing well on room air S1, S2 No active chest pain No tachypnea Sinus tachycardia noted Discharge Data Studies Completed and Pending Completed Studies During Hospitalization Category Date Time Status XR chest 1V portable [id number] Routine Exams 02/06/23 01:14 Completed Pending at discharge Category Date Time Status BMP [Basic Metabolic Panel] Q4H Lab 02/06/23 08:04 Ordered BMP [Basic Metabolic Panel] Q4H Lab 02/06/23 12:04 Ordered BMP [Basic Metabolic Panel] Q4H Lab 02/06/23 16:04 Ordered BMP [Basic Metabolic Panel] Q4H Lab 02/06/23 20:04 Ordered BMP [Basic Metabolic Panel] Q4H Lab 02/07/23 00:04 Ordered BMP [Basic Metabolic Panel] Q4H Lab 02/07/23 04:04 Ordered BMP [Basic Metabolic Panel] Q4H Lab 02/07/23 08:04 Ordered Blood Culture Stat Lab 02/06/23 01:31 Results Sputum Culture and Gram Stain Stat Lab 02/06/23 00:32 Uncollected Urine Culture Stat Lab 02/06/23 00:32 Received Radiology Impressions Chest X-Ray 02/06/23 01:14 IMPRESSION: 1. Mildly hyperaerated lungs consistent with deep inspiratory effort vs reactive airway disease vs mild COPD . 2. Bilateral peribronchial thicking and/or mild increased perihilar linear markings suggesting bronchitis and/or viral pneumonitis and/or reactive airway disease. Laboratory Results WBC 17.3 10^3/uL (4.0-10.0) H 02/06/23 03:56 RBC 4.11 10^6/uL (4.1-5.3) 02/06/23 03:56 Hgb 12.1 g/dL (11.7-16.6) 02/06/23 03:56 Hct 34.4 % (42.0-52.0) L 02/06/23 03:56 MCV 83.7 fl (80-94) D 02/06/23 03:56 MCH 29.4 pg (28.0-34.0) 02/06/23 03:56 MCHC 35.2 g/dL (30.0-36.0) D 02/06/23 03:56 RDW 12.4 % (12.1-15.1) 02/06/23 03:56 Plt Count 268 10^3/cmm (130-400) D 02/06/23 03:56 MPV 10.6 fL (7.4-10.4) H 02/06/23 03:56 Neut % (Auto) 76.3 % 02/06/23 03:56 Lymph % (Auto) 12.6 % 02/06/23 03:56 [place] % (Auto) 10.0 % 02/06/23 03:56 Eos % (Auto) 0.0 % 02/06/23 03:56 Baso % (Auto) 0.2 % 02/06/23 03:56 Neut # (Auto) 13.19 10^3/uL (1.8-7.7) H 02/06/23 03:56 Lymph # (Auto) 2.2 10^3/uL (0.8-4.8) 02/06/23 03:56 [place] # (Auto) 1.7 10^3/uL (0.2-0.9) H 02/06/23 03:56 Eos # (Auto) 0.0 10^3/uL (0.0-0.8) 02/06/23 03:56 Baso # (Auto) 0.0 10^3/uL (0.0-0.1) 02/06/23 03:56 Nucleated RBC % (auto) 0 % 02/06/23 03:56 Nucleated RBCs # 0.0 /100WBC 02/06/23 03:56 Specimen Type Arterial 02/05/23 17:10 Sample Site Radial, right 02/05/23 17:10 ABG pH 7.04 (7.35-7.45) L* 02/05/23 17:10 ABG pCO2 8.1 mmHg (35-45) L* 02/05/23 17:10 ABG pO2 148.0 mmHg (80.0-100.0) H 02/05/23 17:10 ABG HCO3 2.2 mmol/L (22-26) L 02/05/23 17:10 ABG Base Excess -26.2 mmol/L (-2.0-2.0) L 02/05/23 17:10 Bere[place] Test Pos 02/05/23 17:10 Hematocrit 45.3 % (42-52) 02/05/23 17:10 O2 Delivery Device Nc 02/05/23 17:10 O2 Liters/Min 1.5 % 02/05/23 17:10 Oil Spraying Machine Operator ID [place] 02/05/23 17:10 Sodium 135 mmol/L (136-145) L 02/06/23 03:56 Potassium 3.5 mmol/L (3.5-5.1) 02/06/23 03:56 Chloride 101 mmol/L (98-107) 02/06/23 03:56 Carbon Dioxide 24 mmol/L (22-29) 02/06/23 03:56 Anion Gap 13.5 (5-19) 02/06/23 03:56 BUN 23 mg/dL (6-20) H 02/06/23 03:56 Creatinine 0.9 mg/dL (0.7-1.2) 02/06/23 03:56 GFR Calculation 102.0 mL/min (90-130) 02/06/23 03:56 Glucose 125 mg/dL (65-115) H 02/06/23 03:56 POC Glucose 120 mg/dL (70-110) H 02/06/23 05:09 Estimat Average Glucose 280 02/05/23 17:30 Hemoglobin A1c 11.4 % (4.0-6.0) H 02/05/23 17:30 Calculated Osmolality 285 mOsm/kg (285-295) 02/06/23 03:56 Calcium 7.5 mg/dL (8.5-10.5) L 02/06/23 03:56 Phosphorus 2.1 mg/dL (2.5-4.5) L D 02/06/23 03:56 Magnesium 1.6 mg/dL (1.7-2.3) L 02/06/23 03:56 Total Bilirubin 0.4 mg/dL (0.15-1.2) 02/05/23 17:30 AST 15 U/L (0-40) 02/05/23 17:30 ALT 25 U/L (0-41) 02/05/23 17:30 Alkaline Phosphatase 151 U/L (40-130) H 02/05/23 17:30 C-Reactive Protein 4.0 mg/L (0.0-4.9) 02/06/23 03:56 Total Protein 6.2 g/dL (6.6-8.7) L 02/05/23 17:30 Albumin 3.8 g/dL (3.5-5.2) 02/05/23 17:30 Globulin 2.4 g/dL (1.3-4.6) 02/05/23 17:30 Procalcitonin 0.39 ng/mL (0-0.5) 02/05/23 17:30 Urine Color Yellow (Yellow) 02/05/23 19:36 Urine Appearance Clear (CLEAR) 02/05/23 19:36 Urine pH 5 (5-7) 02/05/23 19:36 Ur Specific [place] 1.020 (1.005-1.030) 02/05/23 19:36 Urine Protein Neg (Negative) 02/05/23 19:36 Urine Glucose (UA) 4+ (Normal) H 02/05/23 19:36 Urine Ketones 2+ (Negative) H 02/05/23 19:36 Urine Blood Neg (Negative) 02/05/23 19:36 Urine Nitrate Negative (Negative) 02/05/23 19:36 Urine Bilirubin Neg (Negative) 02/05/23 19:36 Urine Urobilinogen Neg mg/dL (Negative) 02/05/23 19:36 Ur Leukocyte Esterase Negative (Negative) 02/05/23 19:36 Urine Opiates Screen Negative ng/mL (Negative) 02/05/23 19:36 Ur Barbiturates Screen Negative ng/mL (Negative) 02/05/23 19:36 Ur Phencyclidine Scrn Negative ng/mL (Negative) 02/05/23 19:36 Ur Amphetamines Screen Negative ng/mL (Negative) 02/05/23 19:36 U Benzodiazepines Scrn Negative ng/mL (Negative) 02/05/23 19:36 Urine Cocaine Screen Negative ng/mL (Negative) 02/05/23 19:36 U Marijuana (THC) Screen Negative ng/mL (Negative) 02/05/23 19:36 Serum Ketones Positive (Negative) H 02/05/23 17:30 Vitals Last Vital Signs Temp 98.6 F 02/06/23 02:50 Pulse 116 H 02/06/23 05:30 Resp 11 L 02/06/23 05:30 BP 146/97 02/06/23 05:30 Pulse Ox 98 02/06/23 05:30 O2 Del Method Nasal Cannula 02/05/23 18:37 O2 Flow Rate 2 02/05/23 17:43 Discharge Plan Discharge Patient Disposition: Home Condition: Stable Prescriptions: New magnesium 200 mg tablet 200 mg PO BID Qty: 10 0RF Phospha 250 Neutral 250 mg tablet 1 tab PO DAILY Qty: 7 0RF Continued (DME) blood-glucose meter [OneTouch Ultra2 Meter] Kit See Rx Instructions .Route Qty: 1 0RF Rx Instructions: To use TID to check blood sugar levels before taking insulin Novolog FlexPen U-100 Insulin 100 unit/mL (3 mL) insulin pen 10 unit SUBCUT TID Qty: 15 0RF (DME) blood sugar diagnostic Strip See Rx Instructions .Route Qty: 300 3RF Rx Instructions: To use TID in onetouch meter to check blood sugar, 90 day supply Changed Levemir FlexTouch U-100 Insuln 100 unit/mL (3 mL) insulin pen 35 unit SUBCUT QPM Qty: 15 3RF Discharge Orders: Discharge Order (Routine); Ordered 02/06/23 Ordered By: Daniel Mosley Patient Instructions: Opioid Safety Discharge Attestations Time Spent in Discharge Care*: greater than 30 min Status at Discharge: Cognitive status at discharge: cognitively intact, Behavioral status at discharge: cooperative, Quality Metrics Clinical Quality Measures [ No reported AMI, CVA or VTE this stay] Coding Level of Care Code Acute Code for Chg Fwd Diagnoses
[2023-02-06 06:04] LABS: Glucose Point of Care 111 mg/dL (70-110)
[2023-02-06 07:18] LABS: Glucose Point of Care 164 mg/dL (70-110)
[2023-02-06] MEDS: insulin lispro 100 unit/1 mL SUBCUT ×2 (08:16→12:45)
[2023-02-06 12:42] LABS: Glucose Point of Care 287 mg/dL (70-110)
--- NOTE | 2023-02-06 13:44 | PC.NURSE ---
Discharge instructions given to patient, verbal understanding. IVs removed. Patient asked nurse to call a friend Marcelino for a ride, no answer. Patient asked nurse to call Cesia for a ride. Patient and belongings taken to private vehicle driven by Cesia via wheel chair by this nurse. Patient has prescriptions in hand.
== END 2023-02-06 13:45 | disposition home or self-care (01) ==
LOC: ER 17:28 → ICU 18:44
PROVIDERS: Internal Medicine; Admitting Provider Internal Medicine; Emergency Provider Emergency Medicine; Visit Provider Internal Medicine
DX: E10.10 Type 1 diabetes mellitus with ketoacidosis without coma (principal); I10 Essential (primary) hypertension; N17.9 Acute kidney failure, unspecified; E86.0 Dehydration; E87.5 Hyperkalemia; F17.210 Nicotine dependence, cigarettes, uncomplicated; Z91.148 Patient's other noncompliance with medication regimen for other reason
CPT/HCPCS: 36415; 36416; 36600; 71045; 80048; 80053; 80306; 81003; 82009; 82803; 82962; 83036; 83735; 84100; 84145; 85025; 86140; 87040; 87086; 96365; 96366; 96367; 96372; 96375; 99285; G0378; J1650; J1815; J3480; J7030; J7042; J7050; J7070

== ENCOUNTER 2023-03-11 21:41 | Observation (INO) | payer MEDICAID, SELFPAY ==
[2023-03-11 21:44] VITALS: BMI 18.6
--- NOTE | 2023-03-11 21:44 | ED_ITS ---
HPI - General Adult General: Chief complaint: Nausea/Vomiting/Diarrhea Stated complaint: high BG Time Seen by Provider: 03/11/23 21:44 History of Present Illness: Mr. Miller is a 28-year-old gentleman with significant past medical history of type 1 diabetes with frequent episodes of uncontrolled blood sugars presenting to the emergency department for hyperglycemia associated with generalized malaise with nausea and vomiting. He is accompanied by law enforcement. He reports unexpectedly being in snf and running out of his medication starting yesterday. He has had recurrent episodes of nausea and vomiting associated with some abdominal cramping and diarrhea. Intensity of symptoms is moderate to severe. Course has worsened. No other specific changes in health, exacerbati ng, or alleviating factors identified. Onset (ago): day(s) Severity: moderate Pain Consistency: constant Exacerbating factors: eating Review of Systems General: Reports: 10 or more systems reviewed and unremarkable except in HPI and below PFSH ED PFSH: Medical History (Updated 03/15/23 @ 11:19 by Grecia Campbell) Amphetamine abuse Diabetes type 1, uncontrolled History of DKA DKA (diabetic ketoacidosis) History of thyroid nodule right complex nodule, FNA showed benign 03/2022 Hypertension Hyperthyroidism subclinical Long-term insulin use Transaminitis Surgical History No history of previous surgery none known Family History Other Family history unknown Social History Smoking and tobacco status: current every day smoker cigarettes Packs smoked per day: 1 Alcohol intake: former Substance/Drug Use: current Physical Exam Const: COMMON NORMALS: alert GENERAL APPEARANCE: cooperative and well developed HENMT: COMMON NORMALS: normocephalic and atraumatic HEAD & SCALP: normocephalic and atraumatic OTHER: Dry mucous membranes Eye: COMMON NORMALS: conjunctivae normal CONJUNCTIVA: Yes conjunctivae normal SCLERA: sclerae normal Neck/C-Spine: COMMON NORMALS: supple GENERAL: Yes trachea midline Resp: COMMON NORMALS: clear to auscultation bilaterally EFFORT & INSPECTION: Yes able to speak in complete sentences and Yes tachypneic AUSCULTATION: clear to auscultation bilaterally Cardio: COMMON NORMALS: regular rhythm RATE: tachycardic RHYTHM: regular rhythm GI: COMMON NORMALS: Soft to palpation PALPATION: Yes Soft to palpation, Yes Tenderness to palpation present (GI), No Guarding due to palpation present (GI) and No Rigid due to palpation Extremity: GENERAL: Yes normal exam except as noted and No edema Neuro: COMMON NORMALS: moves all extremities SENSORIUM/ORIENTATION: Yes alert and No Orientation impaired Psych: COMMON NORMALS: mental status grossly normal and Normal thought process present THOUGHT PROCESS: Normal thought process present Course Vital Signs: Vital signs: Vital Signs Temperature 98.7 F 03/12/23 11:01 Pulse Rate 104 H 03/12/23 11:01 Respiratory Rate 15 03/12/23 11:01 Blood Pressure 142/103 03/12/23 01:00 Pulse Oximetry 99 03/12/23 11:01 Oxygen Delivery Me thod Room Air 03/12/23 00:07 MDM - General Adult Medical Decision Making 28-year-old diabetic gentleman with history of hospitalization for DKA presenting with concern over DKA. Patient reports that he has been out of his insulin and unexpectedly in snf. Exam as above, dry mucous membranes and somewhat ill in appearance. No evidence of acute surgical abdomen. Labs notable for leukocytosis, normal hemoglobin and platelet count. Metabolic panel consistent with ketoacidosis with initial hyperkalemia, acidemia noted on VBG as patient had declined ABG. Given provided clinical history and exam no occasion for imaging studies at this time. Patient treated with antiemetic, IV fluids, started on insulin drip. Mostly etiology of symptoms is diabetic ketoacidosis. The results of ED evaluation were discussed with the patient including plan for admission due to requirement for level of care not available if discharged to prevent significant worsening/deterioration. Patient agreeable with plan. Discussed with hospitalist service who was agreeable to admit patient. Medical Records I reviewed the patient's medical records. Lab Data I reviewed the patient's lab results. 03/12/23 03:22 03/12/23 09:43 Laboratory Results WBC 13.1 10^3/uL (4.0-10.0) H 03/11/23 21:58 RBC 4.94 10^6/uL (4.1-5.3) 03/11/23 21:58 Hgb 14.7 g/dL (11.7-16.6) 03/11/23 21:58 Hct 45.7 % (42.0-52.0) 03/11/23 21:58 MCV 92.5 fl (80-94) 03/11/23 21:58 MCH 29.8 pg (28.0-34.0) 03/11/23 21:58 MCHC 32.2 g/dL (30.0-36.0) 03/11/23 21:58 RDW 12.9 % (12.1-15.1) 03/11/23 21:58 Plt Count 344 10^3/cmm (130-400) 03/11/23 21:58 MPV 11.3 fL (7.4-10.4) H 03/11/23 21:58 Neut % (Auto) 85.4 % 03/11/23 21:58 Lymph % (Auto) 9.6 % 03/11/23 21:58 [place] % (Auto) 3.8 % 03/11/23 21:58 Eos % (Auto) 0.0 % 03/11/23 21:58 Baso % (Auto) 0.4 % 03/11/23 21:58 Neut # (Auto) 11.21 10^3/uL (1.8-7.7) H 03/11/23 21:58 Lymph # (Auto) 1.3 10^3/uL (0.8-4.8) 03/11/23 21:58 [place] # (Auto) 0.5 10^3/uL (0.2-0.9) 03/11/23 21:58 Eos # (Auto) 0.0 10^3/uL (0.0-0.8) 03/11/23 21:58 Baso # (Auto) 0.1 10^3/uL (0.0-0.1) 03/11/23 21:58 Nucleated RBC % (auto) 0 % 03/11/23 21:58 Nucleated RBCs # 0.0 /100WBC 03/11/23 21:58 Specimen Type Venous 03/11/23 22:08 Sample Site Not specified 03/11/23 22:08 [place] Test N/a 03/11/23 22:08 VBG pH 7.19 (7.32-7.42) L 03/11/23 22:08 VBG pCO2 22.7 mmHg (41-51) L 03/11/23 22:08 VBG pO2 41.8 mmHg (25-40) H 03/11/23 22:08 VBG HCO3 8.6 mmol/L (24-28) L 03/11/23 22:08 VBG Base Excess -17.7 mmol/L (-3.0-3.0) L 03/11/23 22:08 VBG Hematocrit 47.6 % (42-52) 03/11/23 22:08 O2 Delivery Device None 03/11/23 22:08 FiO2 21.0 % 03/11/23 22:08 [employer] ID Betty 03/11/23 22:08 Sodium 126 mmol/L (136-145) L 03/12/23 00:10 Potassium 4.3 mmol/L (3.5-5.1) 03/12/23 00:10 Chloride 89 mmol/L (98-107) L 03/12/23 00:10 Carbon Dioxide 6 mmol/L (22-29) L* 03/12/23 00:10 Anion Gap 35.3 (5-19) H 03/12/23 00:10 BUN 25 mg/dL (6-20) H 03/12/23 00:10 Creatinine 1.1 mg/dL (0.7-1.2) 03/12/23 00:10 GFR Calculation 80.9 mL/min (90-130) L 03/12/23 00:10 Glucose 540 mg/dL (65-115) H* 03/12/23 00:10 POC Glucose > 600 mg/dL (70-110) H* 03/12/23 00:23 Calculated Osmolality 291 mOsm/kg (285-295) 03/12/23 00:10 Calcium 8.8 mg/dL (8.5-10.5) 03/12/23 00:10 Magnesium 2.2 mg/dL (1.7-2.3) 03/11/23 21:58 Total Bilirubin 0.8 mg/dL (0.15-1.2) 03/11/23 21:58 AST 60 U/L (0-40) H 03/11/23 21:58 ALT 73 U/L (0-41) H 03/11/23 21:58 Alkaline Phosphatase 189 U/L (40-130) H 03/11/23 21:58 Total Protein 6.6 g/dL (6.6-8.7) 03/11/23 21:58 Albumin 4.1 g/dL (3.5-5.2) 03/11/23 21:58 Globulin 2.5 g/dL (1.3-4.6) 03/11/23 21:58 Urine Color Yellow (Yellow) 03/11/23 22:35 Urine Appearance Clear (CLEAR) 03/11/23 22:35 Urine pH 5 (5-7) 03/11/23 22:35 Ur Specific [place] 1.015 (1.005-1.030) 03/11/23 22:35 Urine Protein Neg (Negative) 03/11/23 22:35 Urine Glucose (UA) 4+ (Normal) H 03/11/23 22:35 Urine Ketones 3+ (Negative) H 03/11/23 22:35 Urine Blood Neg (Negative) 03/11/23 22:35 Urine Nitrate Negative (Negative) 03/11/23 22:35 Urine Bilirubin Neg (Negative) 03/11/23 22:35 Urine Urobilinogen Norm mg/dL (Negative) 03/11/23 22:35 Ur Leukocyte Esterase Negative (Negative) 03/11/23 22:35 Serum Ketones Positive (Negative) H 03/11/23 21:58 Critical Care Time Critical Care Time: Critical Care Time: Yes Total Critical Care Time: 55 Attestation: Due to a high probability of clinically significant, possibly life threatening deterioration, the patient required my highest level of attention and preparedness to intervene emergently and I personally spent this critical care time directly and personally managing the patient. This critical care time incl uded obtaining a history; examining the patient; pulse oximetry; ordering and review of laboratory and imaging studies; arranging urgent treatment with development of a management plan; evaluation of patient's response to treatment; frequent reassessment; and, discussions with other providers as applicable. It was exclusive of separately billable procedures. Primary system involved is endocrine/metabolic Discharge Plan Discharge Patient Disposition: Admitted As Inpatient Admit Provider: Beatrice Chacon Clinical Impression: Diabetes type 1, uncontrolled, DKA (diabetic ketoacidosis) Condition: Stable Coding Level of Care Code ED Director Of Development And Marketing for [facility] Surendra
[2023-03-11 21:45] VITALS: BP 146/94; PULSE 124; RESP 22; TEMP 36.6; O2SAT 100
[2023-03-11 21:50] LABS: Glucose Point of Care > 600 mg/dL (70-110)
[2023-03-11] MEDS: sodium chloride 0.9% 1,000 ML 999 ML IV ×2 (22:06→22:48)
[2023-03-11] MEDS: ondansetron 2 mg/ML SDV 2 mL 4 MG IVP (22:06)
[2023-03-11 22:11] LABS: Base Excess VBG -17.7 mmol/L (-3.0-3.0); Blood Gas Sample Type Venous; HCO3 VBG 8.6 mmol/L (24-28); PCO2 VBG 22.7 mmHg (41-51); PO2 VBG 41.8 mmHg (25-40); Venous Blood Gas Hematocrit 47.6 % (42-52); pH VBG 7.19 (7.32-7.42)
[2023-03-11 22:12] LABS: Basophils # 0.1 10^3/uL (0.0-0.1); Basophils % 0.4 %; Hematocrit 45.7 % (42.0-52.0); Hemoglobin 14.7 g/dL (11.7-16.6); Lymphocytes # 1.3 10^3/uL (0.8-4.8); Lymphocytes % 9.6 %; Mean Corpuscular HGB Conc 32.2 g/dL (30.0-36.0); Mean Corpuscular Hemoglobin 29.8 pg (28.0-34.0); Mean Corpuscular Volume 92.5 fl (80-94); Mean Platelet Volume 11.3 fL (7.4-10.4); Monocytes # 0.5 10^3/uL (0.2-0.9); Monocytes % 3.8 %; Neutrophils # 11.21 10^3/uL (1.8-7.7); Neutrophils % 85.4 %; Nucleated Red Blood Cells % 0 %; Platelet Count 344 10^3/cmm (130-400); Red Blood Count 4.94 10^6/uL (4.1-5.3); Red Cell Distribution Width 12.9 % (12.1-15.1); White Blood Count 13.1 10^3/uL (4.0-10.0)
[2023-03-11 22:15] VITALS: BP 143/94; PULSE 122; RESP 24; O2SAT 99
[2023-03-11 22:19] LABS: Ketone (Acetest) Serum Positive (Negative)
[2023-03-11 22:31] LABS: Alanine Aminotransferase 73 U/L (0-41); Albumin Level 4.1 g/dL (3.5-5.2); Alkaline Phosphatase 189 U/L (40-130); Anion Gap 41.9 (5-19); Aspartate Amino Transferase 60 U/L (0-40); Blood Urea Nitrogen 24 mg/dL (6-20); Calcium 9.1 mg/dL (8.5-10.5); Chloride 77 mmol/L (98-107); Globulin 2.5 g/dL (1.3-4.6); Glomerular Filtration Rate 80.9 mL/min (90-130); Magnesium 2.2 mg/dL (1.7-2.3); Potassium 5.9 mmol/L (3.5-5.1); Sodium 121 mmol/L (136-145); Total Bilirubin 0.8 mg/dL (0.15-1.2); Total Protein 6.6 g/dL (6.6-8.7)
[2023-03-11 22:41] LABS: Osmolality Calculated 300 mOsm/kg (285-295)
[2023-03-11 22:45] VITALS: BP 132/83; PULSE 123; RESP 26; O2SAT 100
[2023-03-11 22:49] LABS: Carbon Dioxide 8 mmol/L (22-29); Glucose 895 mg/dL (65-115)
[2023-03-11 22:57] LABS: Add Urine Microscopic? NO; Charge for UA Resulting for Rev
[2023-03-11 22:59] LABS: Bilirubin Urine Neg (Negative); Blood Urine Neg (Negative); Glucose Urine UA 4+ (Normal); Ketones Urine 3+ (Negative); Leukocyte Esterase Urine Negative (Negative); Nitrate Urine Negative (Negative); Protein Urine Neg (Negative); Specific Gravity, Urine 1.015 (1.005-1.030); Urine Appearance Clear (CLEAR); Urine Color Yellow (Yellow); Urobilinogen Urine Norm (Negative); pH Urine 5 (5-7)
[2023-03-11] MEDS: metoclopramide 5 mg/mL SDV 2 mL 10 MG IVP (23:01)
[2023-03-11] MEDS: insulin regular-human 250 UNIT in sodium chloride 0.9% 250 ML 25 UNIT IV (23:16)
[2023-03-11 23:45] VITALS: BP 126/82; PULSE 123; RESP 24; O2SAT 100
[2023-03-12] VITALS (19 sets, daily range): BP systolic 142–152; BP diastolic 96–105; PULSE 104–132; RESP 15–22; TEMP 37.1; O2SAT 99–100
[2023-03-12 00:26] LABS: Glucose Point of Care > 600 mg/dL (70-110)
[2023-03-12 00:26] LABS: Glucose Point of Care > 600 mg/dL (70-110)
--- NOTE | 2023-03-12 00:39 | PM.HP ---
Providers/Chief Complaint Admitting Physician: Beatrice Chacon MD Chief Complaint: high BG History of Present Illness Jean Miller is a 28 year old male with a past medical history of diabetes mellitus, multiple admissions here in the past for DKA came in today with generalized malaise with nausea and vomiting. He is accompanied by police today, reports he could not use insulin over past 24 hrs as he was in long term. Labs consistent with DKA with blood sugar > 900 , AG 40, positive serum ketones, low bicarb, hyperkalemia, hyponatremia. Review of Systems General: Reports: 10 or more systems reviewed and unremarkable except in HPI and below Const: Denies: fever(s), chills or body aches Eyes: Denies: change in vision, blurry vision or photophobia ENMT: Reports: hoarseness; Denies: throat pain, enlarged tonsils, odynophagia or nasal congestion Card: Denies: chest pain, palpitations, irregular heart rhythm, edema, swelling of feet/ankles, lightheadedness, pre-syncope, dyspnea on exertion or orthopnea Resp: Denies: dyspnea, productive cough, non-productive cough, wheezing, stridor, pain on inspiration, change in phlegm color, hemoptysis or chest congestion GI: Denies: abdominal pain, nausea, vomiting, hematemesis, coffee ground emesis, dysphagia, heartburn, diarrhea, constipation, GI cramping, change in stool character, hematochezia or melena : Denies: flank pain, dysuria, urinary frequency, urinary urgency, urinary hesitancy or hematuria Musc: Denies: neck pain, back pain, extremity pain, joint swelling, joint warmth or deformity Neuro: Denies: headache(s), numbness in extremities, weakness in extremities, sensory changes, difficulty walking, frequent falls, dizziness, vertigo, behavioral changes, Slurred speech present or seizure-like activity Psych: Denies: anxiety, depression, suicidal ideation or homicidal ideation Endo: Denies: polyuria, polydipsia, tired all the time, cold intolerance or hot flashes Basim/Lymph: Denies: easy bruising or easy bleeding Medications/Allergies Home Medications Medication Instructions Recorded Confirmed Last Taken Type blood-glucose meter (OneTouch #1 ea 04/02/22 02/06/23 Unknown Rx Ultra2 Meter kit) blood sugar diagnostic #300 ea 05/12/22 02/06/23 Unknown Rx insulin aspart U-100 100 unit/mL 10 unit (0.1 mL) SUBCUT TID #15 mL 11/09/22 02/06/23 Unknown Rx (3 mL) subcutaneous pen (Novolog FlexPen U-100 Insulin aspart) insulin detemir U-100 100 unit/mL 35 unit (0.35 mL) SUBCUT QPM #15 mL 02/06/23 02/06/23 Unknown Rx (3 mL) subcutaneous pen (Levemir FlexTouch U-100 Insulin) magnesium 200 mg tablet 200 mg PO BID #10 tabs 02/06/23 Unknown Rx sodium di- and 1 tab PO DAILY #7 tabs 02/06/23 Unknown Rx monophosphate-potassium phos monobasic 250 mg tablet (Phospha Neutral) Allergies Allergy/AdvReac Type Severity Reaction Status Date / Time No Known Allergies Allergy Verified 02/06/23 08:51 PFSH Acute PFSH: Medical History Amphetamine abuse Diabetes type 1, uncontrolled History of DKA History of thyroid nodule right complex nodule, FNA showed benign 03/2022 Hypertension Hyperthyroidism subclinical Long-term insulin use Psychiatric care Transaminitis Surgical History No history of previous surgery none known Family History Other Family history unknown Social History Smoking and tobacco status: current every day smoker cigarettes Packs smoked per day: 1 Alcohol intake: former Substance/Drug Use: current Vitals/I&O/Wt Last Vital Signs Temp 97.9 F 03/11/23 21:45 Pulse 131 H 03/12/23 00:37 Resp 22 H 03/12/23 00:37 BP 152/105 03/12/23 00:37 Pulse Ox 100 03/12/23 00:37 O2 Del Method Room Air 03/12/23 00:07 03/11/23 03/11/23 03/12/23 14:59 22:59 06:59 Intake Total 1000 / 1000 1000 / 1999 Balance 1000 / 1000 1000 / 1999 Weight last 48 hrs Weight 58.967 kg Physical Exam Narrative: General: No acute distress, AO x3 HEENT: PERRLA, pupils bilaterally equal and reactive, pallors not present Chest: Normal vesicular breath sounds, no added sounds, equal good air entry bilaterally CVS: S1-S2 regular, no murmurs, no tachycardia, no gallops, no rubs Abdomen: Soft, nontender, no organomegaly, bowel sounds present Neuro: No focal deficits, no facial deformity, AO x3, power 5/5 in all limbs Data 03/11/23 21:58 03/12/23 00:10 Micro: Microbiology 03/11/23 22:12 Blood Culture - Preliminary Blood SPECIMEN COLLECTED 03/11/23 21:58 Blood Culture - Preliminary Blood SPECIMEN COLLECTED A&P Assessment and plan (1) DKA (diabetic ketoacidosis): Diabetic ketoacidosis: Start patient on insulin drip as per DKA/HHS protocol with target blood sugars between 90-120 ?normal saline at 150 cc/h. We will switch to D5 NS once blood sugar less than 250. check FS every hour while on drip Monitor BMP every 6 hours.? Once potassium less than 4 we will add 20 mg of potassium to IV fluids. Transition to sliding scale and long-acting insulin once anion gap closes. Attestations Medical Necessity Statement*: > 2midnight admission is anticipated for DKA management Coding Level of Care Code Acute Code for [facility] Diagnoses DKA (diabetic ketoacidosis) E11.10
[2023-03-12] MEDS: sodium chloride 0.9% 1,000 ML 150 ML IV (01:13)
[2023-03-12 01:39] LABS: Anion Gap 35.3 (5-19); Blood Urea Nitrogen 25 mg/dL (6-20); Calcium 8.8 mg/dL (8.5-10.5); Chloride 89 mmol/L (98-107); Glomerular Filtration Rate 80.9 mL/min (90-130); Osmolality Calculated 291 mOsm/kg (285-295); Potassium 4.3 mmol/L (3.5-5.1); Sodium 126 mmol/L (136-145)
[2023-03-12 01:46] LABS: Carbon Dioxide 6 mmol/L (22-29); Glucose 540 mg/dL (65-115)
[2023-03-12 02:23] LABS: Glucose Point of Care 375 mg/dL (70-110)
--- NOTE | 2023-03-12 03:04 | ECG_ITS ---
[facility] Test Date: 2023-03-12 Pat Name: Jean Miller Department: Room: ICU07 Gender: Male Sales Account Specialist: : 1995 Requested By: Beatrice Chacon Order Number: [id number] Remy MD: Aracelis Jauregui M.D. Measurements Intervals [place] Rate: 127 P: 153 ME: 141 QRS: 142 QRSD: 85 T: 152 QT: 333 QTc: 486 Interpretive Statements ECTOPIC ATRIAL TACHYCARDIA LEFT POSTERIOR FASCICULAR BLOCK [QRS AXIS > 109, INFERIOR Q] MODERATE ST DEPRESSION [0.05+ mV ST DEPRESSION] LIMB LEAD REVERSAL (interpretation assuming no reversal) Compared to ECG 12/25/2022 09:40:33 Left posterior fascicular block now present ST (T wave) deviation now present Sinus tachycardia no longer present Electronically Signed On 03-12-2023 8:25:56 CDT by Aracelis Jauregui M.D. [email or web address]
[2023-03-12 03:23] LABS: Glucose Point of Care 242 mg/dL (70-110)
[2023-03-12 03:50] LABS: Basophils # 0.1 10^3/uL (0.0-0.1); Basophils % 0.3 %; Hemoglobin 13.7 g/dL (11.7-16.6); Lymphocytes # 2.9 10^3/uL (0.8-4.8); Lymphocytes % 12.6 %; Mean Corpuscular HGB Conc 34.3 g/dL (30.0-36.0); Mean Corpuscular Volume 87.5 fl (80-94); Mean Platelet Volume 10.7 fL (7.4-10.4); Monocytes # 1.4 10^3/uL (0.2-0.9); Monocytes % 6.2 %; Neutrophils # 18.21 10^3/uL (1.8-7.7); Neutrophils % 80.1 %; Nucleated Red Blood Cells % 0 %; Platelet Count 293 10^3/cmm (130-400); Red Blood Count 4.57 10^6/uL (4.1-5.3); Red Cell Distribution Width 12.6 % (12.1-15.1); White Blood Count 22.8 10^3/uL (4.0-10.0)
[2023-03-12] MEDS: dextrose 5%-sod chloride 0.9% 1,000 ML 125 ML IV (04:03)
[2023-03-12 04:12] LABS: Alanine Aminotransferase 60 U/L (0-41); Albumin Level 3.5 g/dL (3.5-5.2); Alkaline Phosphatase 130 U/L (40-130); Aspartate Amino Transferase 34 U/L (0-40); Blood Urea Nitrogen 19 mg/dL (6-20); Calcium 8.6 mg/dL (8.5-10.5); Carbon Dioxide 13 mmol/L (22-29); Chloride 96 mmol/L (98-107); Creatinine Clr Calc Pharmacy 103.7382; Glucose 244 mg/dL (65-115); Osmolality Calculated 280 mOsm/kg (285-295); Sodium 130 mmol/L (136-145); Total Bilirubin 0.3 mg/dL (0.15-1.2); Total Protein 5.5 g/dL (6.6-8.7)
[2023-03-12 04:25] LABS: Glucose Point of Care 198 mg/dL (70-110)
[2023-03-12 05:17] LABS: Glucose Point of Care 182 mg/dL (70-110)
[2023-03-12 06:04] LABS: Glucose Point of Care 156 mg/dL (70-110)
[2023-03-12 08:08] LABS: Glucose Point of Care 124 mg/dL (70-110)
[2023-03-12 09:09] LABS: Glucose Point of Care 99 mg/dL (70-110)
--- NOTE | 2023-03-12 10:00 | PC.NURSE ---
[place] out on medical leave. Pt no longer in custody of [facility].
[2023-03-12 10:04] LABS: Glucose Point of Care 88 mg/dL (70-110)
[2023-03-12 10:11] LABS: Blood Gas Sample Site NOT SPECIFIED
[2023-03-12 10:11] LABS: Anion Gap 12.7 (5-19); Blood Urea Nitrogen 16 mg/dL (6-20); Calcium 7.6 mg/dL (8.5-10.5); Carbon Dioxide 20 mmol/L (22-29); Chloride 105 mmol/L (98-107); Glomerular Filtration Rate 136.3 mL/min (90-130); Glucose 81 mg/dL (65-115); Osmolality Calculated 278 mOsm/kg (285-295); Potassium 3.7 mmol/L (3.5-5.1); Sodium 134 mmol/L (136-145)
--- NOTE | 2023-03-12 10:42 | P.DS_ITS ---
Discharge Providers Date of Admission: 03/12/23 00:29 Date of Discharge: March 12, 2023 Attending Provider at Admission: Beatrice Chacon MD Attending Provider at Discharge: Daniel Mosley MD Diagnoses at Discharge Discharge Diagnosis (1) DKA (diabetic ketoacidosis): Status: Acute Reason for Visit Reason for Visit: high BG Hospital Course Hospital Course 28-year-old male who missed his insulin dose for 1 day because he was incarcerated for possession of illegal drugs, came in to the ER with recurrent nausea vomiting he was diagnosed with DKA, his DKA resolved 03/12 at 11 AM, patient was wanting to leave AMA, I was in the midst of adding Lantus 30 units and allowing him to eat his recent BMP shows closure of anion gap. He does have insulin refills at home Physical Exam Narrative: Awake and alert Signs of dehydration improved Abdomen soft No active emesis S1, S2 Nonfocal neuro exam GCS 15 Discharge Data Studies Completed and Pending Pending at discharge Category Date Time Status Blood Culture Stat Lab 03/11/23 22:12 Results Comprehensive Metabolic Panel Q6 Lab 03/12/23 16:00 Ordered Comprehensive Metabolic Panel Q6 Lab 03/12/23 22:00 Ordered Comprehensive Metabolic Panel Q6 Lab 03/13/23 04:00 Ordered Laboratory Results WBC 22.8 10^3/uL (4.0-10.0) H 03/12/23 03:22 RBC 4.57 10^6/uL (4.1-5.3) 03/12/23 03:22 Hgb 13.7 g/dL (11.7-16.6) 03/12/23 03:22 Hct 40.0 % (42.0-52.0) L 03/12/23 03:22 MCV 87.5 fl (80-94) D 03/12/23 03:22 MCH 30.0 pg (28.0-34.0) 03/12/23 03:22 MCHC 34.3 g/dL (30.0-36.0) D 03/12/23 03:22 RDW 12.6 % (12.1-15.1) 03/12/23 03:22 Plt Count 293 10^3/cmm (130-400) 03/12/23 03:22 MPV 10.7 fL (7.4-10.4) H 03/12/23 03:22 Neut % (Auto) 80.1 % 03/12/23 03:22 Lymph % (Auto) 12.6 % 03/12/23 03:22 Franklin % (Auto) 6.2 % 03/12/23 03:22 Eos % (Auto) 0.0 % 03/12/23 03:22 Baso % (Auto) 0.3 % 03/12/23 03:22 Neut # (Auto) 18.21 10^3/uL (1.8-7.7) H 03/12/23 03:22 Lymph # (Auto) 2.9 10^3/uL (0.8-4.8) 03/12/23 03:22 Franklin # (Auto) 1.4 10^3/uL (0.2-0.9) H 03/12/23 03:22 Eos # (Auto) 0.0 10^3/uL (0.0-0.8) 03/12/23 03:22 Baso # (Auto) 0.1 10^3/uL (0.0-0.1) 03/12/23 03:22 Nucleated RBC % (auto) 0 % 03/12/23 03:22 Nucleated RBCs # 0.0 /100WBC 03/12/23 03:22 Specimen Type Venous 03/11/23 22:08 Sample Site Not specified 03/11/23 22:08 Bereket Test N/a 03/11/23 22:08 VBG pH 7.19 (7.32-7.42) L 03/11/23 22:08 VBG pCO2 22.7 mmHg (41-51) L 03/11/23 22:08 VBG pO2 41.8 mmHg (25-40) H 03/11/23 22:08 VBG HCO3 8.6 mmol/L (24-28) L 03/11/23 22:08 VBG Base Excess -17.7 mmol/L (-3.0-3.0) L 03/11/23 22:08 VBG Hematocrit 47.6 % (42-52) 03/11/23 22:08 O2 Delivery Device None 03/11/23 22:08 FiO2 21.0 % 03/11/23 22:08 Appetizer Packer ID Alewe 03/11/23 22:08 Sodium 134 mmol/L (136-145) L 03/12/23 09:43 Potassium 3.7 mmol/L (3.5-5.1) 03/12/23 09:43 Chloride 105 mmol/L (98-107) 03/12/23 09:43 Carbon Dioxide 20 mmol/L (22-29) L 03/12/23 09:43 Anion Gap 12.7 (5-19) 03/12/23 09:43 BUN 16 mg/dL (6-20) 03/12/23 09:43 Creatinine 0.7 mg/dL (0.7-1.2) 03/12/23 09:43 GFR Calculation 136.3 mL/min (90-130) H 03/12/23 09:43 Glucose 81 mg/dL (65-115) 03/12/23 09:43 POC Glucose 88 mg/dL (70-110) 03/12/23 10:02 Calculated Osmolality 278 mOsm/kg (285-295) L 03/12/23 09:43 Calcium 7.6 mg/dL (8.5-10.5) L 03/12/23 09:43 Magnesium 2.0 mg/dL (1.7-2.3) 03/12/23 03:22 Total Bilirubin 0.3 mg/dL (0.15-1.2) 03/12/23 03:22 AST 34 U/L (0-40) 03/12/23 03:22 ALT 60 U/L (0-41) H 03/12/23 03:22 Alkaline Phosphatase 130 U/L (40-130) 03/12/23 03:22 Total Protein 5.5 g/dL (6.6-8.7) L 03/12/23 03:22 Albumin 3.5 g/dL (3.5-5.2) 03/12/23 03:22 Globulin 2.0 g/dL (1.3-4.6) 03/12/23 03:22 Urine Color Yellow (Yellow) 03/11/23 22:35 Urine Appearance Clear (CLEAR) 03/11/23 22:35 Urine pH 5 (5-7) 03/11/23 22:35 Ur Specific [place] 1.015 (1.005-1.030) 03/11/23 22:35 Urine Protein Neg (Negative) 03/11/23 22:35 Urine Glucose (UA) 4+ (Normal) H 03/11/23 22:35 Urine Ketones 3+ (Negative) H 03/11/23 22:35 Urine Blood Neg (Negative) 03/11/23 22:35 Urine Nitrate Negative (Negative) 03/11/23 22:35 Urine Bilirubin Neg (Negative) 03/11/23 22:35 Urine Urobilinogen Norm mg/dL (Negative) 03/11/23 22:35 Ur Leukocyte Esterase Negative (Negative) 03/11/23 22:35 Serum Ketones Positive (Negative) H 03/11/23 21:58 Vitals Last Vital Signs Temp 98.7 F 03/12/23 08:00 Pulse 104 H 03/12/23 08:00 Resp 15 03/12/23 08:00 BP 142/103 03/12/23 01:00 Pulse Ox 99 03/12/23 08:00 O2 Del Method Room Air 03/12/23 00:07 Discharge Plan Discharge Patient Disposition: Home Condition: Stable Prescriptions: Continued (DME) blood-glucose meter [OneTouch Ultra2 Meter] Kit See Rx Instructions .Route Qty: 1 0RF Rx Instructions: To use TID to check blood sugar levels before taking insulin (DME) blood sugar diagnostic Strip See Rx Instructions .Route Qty: 300 3RF Rx Instructions: To use TID in onetouch meter to check blood sugar, 90 day supply Novolog FlexPen U-100 Insulin 100 unit/mL (3 mL) insulin pen 10 unit SUBCUT TID Qty: 15 3RF Changed Levemir FlexTouch U-100 Insuln 100 unit/mL (3 mL) insulin pen 30 unit SUBCUT QPM Qty: 3 3RF Discharge Orders: Discharge Order (Routine); Ordered 03/12/23 Ordered By: Daniel Mosley Patient Instructions: Opioid Safety Discharge Attestations Time Spent in Discharge Care*: greater than 30 min Status at Discharge: Cognitive status at discharge: cognitively intact , Behavioral status at discharge: cooperative , Quality Metrics Clinical Quality Measures [ No reported AMI, CVA or VTE this stay] Coding Level of Care Code Acute Code for Chg Fwd Diagnoses DKA (diabetic ketoacidosis) E11.10
--- NOTE | 2023-03-12 10:51 | PC.NURSE ---
Discharge Pt signed discharge paperwork. Denied having any questions or concerns with instructions. IV's removed.
--- NOTE | 2023-03-12 10:56 | PC.NURSE ---
Shan Torrez called for pt to be picked up in front of the [facility].
== END 2023-03-12 11:04 | disposition home or self-care (01) ==
LOC: ER 23:05 → ICU 23:41
PROVIDERS: Admitting Provider Student in an Organized Health Care Education/Training Program; Emergency Provider Emergency Medicine; PCP Family Medicine; Visit Provider Internal Medicine
DX: E10.10 Type 1 diabetes mellitus with ketoacidosis without coma (principal); F15.10 Other stimulant abuse, uncomplicated; I10 Essential (primary) hypertension; E05.90 Thyrotoxicosis, unspecified without thyrotoxic crisis or storm; F17.210 Nicotine dependence, cigarettes, uncomplicated; T38.3X6A Underdosing of insulin and oral hypoglycemic [antidiabetic] drugs, initial encounter; Z91.138 Patient's unintentional underdosing of medication regimen for other reason; E87.5 Hyperkalemia; E87.1 Hypo-osmolality and hyponatremia
CPT/HCPCS: 36415; 36416; 80048; 80053; 81003; 82009; 82803; 82962; 83735; 85025; 87040; 93005; 96361; 96365; 96375; 96376; 99285; G0378; J1815; J2405; J2765; J7030; J7042; J7050

== ENCOUNTER 2023-06-18 06:13 | Inpatient (IN) | payer MEDICAID, SELFPAY ==
[2023-06-18] VITALS (157 sets, daily range): BP systolic 91–160; BP diastolic 59–96; PULSE 112–128; RESP 8–32; TEMP 36.4–37.4; O2SAT 90–100
--- NOTE | 2023-06-18 06:18 | XRR_ITS ---
PROCEDURE INFORMATION: Exam: XR Chest Exam date and time: 06/18/2023 6:23 AM Age: 28 years old Clinical indication: Cough and dyspnea; Additional info: Dyspnea/cough.No history of trauma or recent surgery is provided. TECHNIQUE: Imaging protocol: Radiologic exam of the chest. 2image(s) are provided. Views: 1 view. COMPARISON: CR (CHEST, ) 02/06/2023 12:19 AM FINDINGS: Lungs: There is improved lung volume and aeration.No lobar consolidation is appreciated. The lung volumes are slightly increased overall which may be effort related versus minimal air trapping. Pleural spaces: No pneumothorax or pleural effusion is appreciated. Heart/Mediastinum: The cardiomediastinal silhouette is normal. No cardiac decompensation is appreciated. Diaphragm: The hemidiaphragms are symmetric. Bones/joints: Osseous alignment is maintained.No interval displaced fracture or dislocation is appreciated. There is some costochondral thickening which may represent averaging versus previous injury anteriorly on the right similar overall. Soft tissues: No radiopaque foreign body or subcutaneous emphysema is appreciated. Other findings: No other significant interval changes are appreciated. XR/XR chest 1V portable [id number] IMPRESSION: No lobar consolidation is appreciated.No interval acute cardiopulmonary changes are appreciated.
--- NOTE | 2023-06-18 06:24 | ED_ITS ---
HPI - General Adult General: Chief complaint: General Medical Stated complaint: hyperglycemia Time Seen by Provider: 06/18/23 06:17 Source: patient and EMS Mode of arrival: EMS Limitations: altered mental status History of Present Illness: 28-year-old male who presents to the emergency room via EMS. Blood sugar read as high at home. He is poorly responsive. He is a known type I diabetic has had several previous admissions for DKA. He is tachypneic and tachycardic on arrival. He will open his eyes to verbal stimuli but does not respond. Onset (ago): unknown Severity: severe Review of Systems General: Reports: ROS unobtainable due to medical condition PFS ED PFSH: Medical History Amphetamine abuse Diabetes type 1, uncontrolled History of DKA DKA (diabetic ketoacidosis) History of thyroid nodule right complex nodule, FNA showed benign 03/2022 Hypertension Hyperthyroidism subclinical Long-term insulin use Transaminitis Surgical History No history of previous surgery none known Family History Other Family history unknown Social History Smoking and tobacco status: current every day smoker cigarettes Packs smoked per day: 1 Alcohol intake: former Substance/Drug Use: current Physical Exam HENMT: COMMON NORMALS: normocephalic, atraumatic and hearing grossly normal bilaterally HEAD & SCALP: normocephalic and atraumatic Resp: COMMON NORMALS: No retractions, No use of accessory muscles and clear to auscultation bilaterally EFFORT & INSPECTION: Yes abnormal respiratory pattern Kussmaul breathing and Yes tachypneic AUSCULTATION: clear to auscultation bilaterally Cardio: COMMON NORMALS: regular rhythm and No murmurs present (Cardio) RATE: tachycardic RHYTHM: regular rhythm GI: COMMON NORMALS: Soft to palpation and No hepatosplenomegaly present AUSCULTATION: Yes normoactive bowel sounds PALPATION: Yes Soft to palpation, No Tenderness to palpation present (GI), No Guarding due to palpation present (GI) and Yes No hepatosplenomegaly present Extremity: COMMON NORMALS: normal to inspection, capillary refill normal, no clubbing, cyanosis or edema, no calf tenderness and no pedal edema Skin: COMMON NORMALS: no rashes or lesions noted GENERAL SKIN EXAM: no rashes or lesions noted Course Vital Signs: Vital signs: Vital Signs Temperature 97.5 F L 06/18/23 06:14 Pulse Rate 114 H 06/18/23 06:49 Respiratory Rate 26 H 06/18/23 06:49 Blood Pressure 91/60 06/18/23 06:49 Pulse Oximetry 100 06/18/23 06:49 Oxygen Delivery Me thod Room Air 06/18/23 06:49 MDM - General Adult Medical Decision Making Poorly controlled diabetes mellitus due to noncompliance. Patient has severe DKA discussed with Dr. Forman will admit to ICU IV fluids and insulin ordered. Medical Records I reviewed the patient's medical records. Lab Data I reviewed the patient's lab results. 06/18/23 06:23 06/18/23 06:23 Laboratory Results WBC 31.24 10^3/uL (3.29-11.43) H* 06/18/23 06:23 RBC 5.22 10^6/uL (3.85-5.65) 06/18/23 06:23 Hgb 15.50 g/dL (11.27-16.99) 06/18/23 06:23 Hct 51.5 % (37-53) 06/18/23 06:23 MCV 98.7 fl (82-101) 06/18/23 06:23 MCH 29.7 pg (27-33) 06/18/23 06:23 MCHC 30.1 g/dL (30-55) 06/18/23 06:23 RDW 12.2 % (12.1-15.1) 06/18/23 06:23 Plt Count 423 10^3/cmm (157-399) H 06/18/23 06:23 MPV 11.7 fL (7.4-10.4) H 06/18/23 06:23 Neut % (Auto) 83.3 % 06/18/23 06:23 Lymph % (Auto) 7.9 % 06/18/23 06:23 Storey % (Auto) 6.9 % 06/18/23 06:23 Eos % (Auto) 0.0 % 06/18/23 06: Baso % (Auto) 0.6 % 06/18/23 06:23 Neut # (Auto) 25.97 10^3/uL (1.8-7.7) H 06/18/23 06:23 Lymph # (Auto) 2.5 10^3/uL (0.8-4.8) 06/18/23 06:23 Storey # (Auto) 2.2 10^3/uL (0.2-0.9) H 06/18/23 06:23 Eos # (Auto) 0.0 10^3/uL (0.0-0.8) 06/18/23 06:23 Baso # (Auto) 0.2 10^3/uL (0.0-0.1) H 06/18/23 06:23 Nucleated RBC % (auto) 0 % 06/18/23 06: Nucleated RBCs # 0.0 /100WBC 06/18/23 06:23 Specimen Type Arterial 06/18/23 06:25 Sample Site Brachial, right 06/18/23 06:25 ABG pH 7.00 (7.35-7.45) L* 06/18/23 06:25 ABG pCO2 12.8 mmHg (35-45) L* 06/18/23 06:25 ABG pO2 77.2 mmHg (80.0-100.0) L 06/18/23 06:25 ABG HCO3 3.1 mmol/L (22-26) L 06/18/23 06:25 ABG O2 Saturation 89.8 06/18/23 06:25 ABG Base Excess -26.4 mmol/L (-2.0-2.0) L 06/18/23 06:25 Bereket Test N/a 06/18/23 06:25 A-a O2 Gradient 7.0 mmHg (5-10) 06/18/23 06:25 Hematocrit 41.7 % (42-52) L 06/18/23 06:25 Hgb O2 Saturation 87.9 % (95-100) L 06/18/23 06:25 Carboxyhemoglobin 1.5 %THgb (0.4-20.1) 06/18/23 06:25 Methemoglobin 0.7 % (0.4-1.5) 06/18/23 06:25 Total Hemoglobin 13.6 g/dL (14-18) L 06/18/23 06:25 Sodium 116.0 mmol/L (131-143) L 06/18/23 06:25 Potassium 7.3 mmol/L (3.5-5.0) H 06/18/23 06:25 Glucose > 1080.0 mg/dL (70-115) H 06/18/23 06:25 Ionized Calcium 1.1 mmol/L (1.1-1.4) 06/18/23 06:25 O2 Delivery Device Room air 06/18/23 06:25 FiO2 21.0 % 06/18/23 06:25 Medical Translator ID Jesus Alberto 06/18/23 06:25 Sodium 116 mmol/L (136-145) L* 06/18/23 06:23 Potassium 7.9 mmol/L (3.5-5.1) H* 06/18/23 06:23 Chloride 67 mmol/L (98-107) L 06/18/23 06:23 Carbon Dioxide 4 mmol/L (22-29) L* 06/18/23 06:23 Anion Gap 52.9 (5-19) H 06/18/23 06:23 BUN 44 mg/dL (6-20) H 06/18/23 06:23 Creatinine 2.7 mg/dL (0.7-1.2) H 06/18/23 06:23 GFR Calculation 28.7 mL/min (90-130) L 06/18/23 06:23 Glucose 1403 mg/dL (65-115) H* 06/18/23 06:23 POC Glucose > 600 mg/dL (70-110) H* 06/18/23 06:38 Calculated Osmolality 326 mOsm/kg (285-295) H 06/18/23 06:23 Calcium 9.5 mg/dL (8.5-10.5) 06/18/23 06:23 Phosphorus 13.1 mg/dL (2.5-4.5) H* 06/18/23 06:23 Magnesium 2.7 mg/dL (1.7-2.3) H 06/18/23 06:23 Total Bilirubin 0.4 mg/dL (0.15-1.2) 06/18/23 06:23 AST 25 U/L (0-40) 06/18/23 06:23 ALT 62 U/L (0-41) H 06/18/23 06:23 Alkaline Phosphatase 176 U/L (40-130) H 06/18/23 06:23 Total Protein 7.1 g/dL (6.6-8.7) 06/18/23 06:23 Albumin 4.5 g/dL (3.5-5.2) 06/18/23 06:23 Globulin 2.6 g/dL (1.3-4.6) 06/18/23 06:23 Lipase 11 U/L (13-60) L 06/18/23 06:23 Serum Ketones Positive (Negative) H 06/18/23 06:23 Discharge Plan Discharge Patient Disposition: Admitted As Inpatient Clinical Impression: Diabetic ketoacidosis associated with type 1 diabetes mellitus, Type 1 diabetes mellitus, uncontrolled Condition: Stable Coding Level of Care Code ED Engraver Block for Jazmín Agosto
--- NOTE | 2023-06-18 06:25 | ECG_ITS ---
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 Measurements Intervals Cranks Rate: 230 P: 0 TN: 0 QRS: -42 QRSD: 161 T: 0 QT: 155 QTc: 303 Interpretive Statements UNCERTAIN IRREGULAR RHYTHM LEFT AXIS DEVIATION [QRS AXIS < -30] INTRAVENTRICULAR CONDUCTION DELAY [130+ ms QRS DURATION] Compared to ECG 03/12/2023 03:04:12 Left-axis deviation now present Intraventricular conduction delay now present Left posterior fascicular block no longer present ST (T wave) deviation no longer present Electronically Signed On 06-18-2023 16:21:07 CDT by Aime Calle M.D. [email or web address]
[2023-06-18 06:31] LABS: Basophils # 0.2 10^3/uL (0.0-0.1); Basophils % 0.6 %; Hematocrit 51.5 % (37-53); Lymphocytes # 2.5 10^3/uL (0.8-4.8); Lymphocytes % 7.9 %; Mean Corpuscular HGB Conc 30.1 g/dL (30-55); Mean Corpuscular Hemoglobin 29.7 pg (27-33); Mean Corpuscular Volume 98.7 fl (82-101); Mean Platelet Volume 11.7 fL (7.4-10.4); Monocytes # 2.2 10^3/uL (0.2-0.9); Monocytes % 6.9 %; Neutrophils # 25.97 10^3/uL (1.8-7.7); Neutrophils % 83.3 %; Nucleated Red Blood Cells % 0 %; Platelet Count 423 10^3/cmm (157-399); Red Blood Count 5.22 10^6/uL (3.85-5.65); Red Cell Distribution Width 12.2 % (12.1-15.1)
[2023-06-18] MEDS: sodium chloride 0.9% 1,000 ML 999 ML IV ×4 (06:31→08:00)
[2023-06-18] MEDS: ondansetron 2 mg/ML SDV 2 mL 4 MG IVP (06:32)
[2023-06-18 06:40] LABS: Arterial Blood Gas Hematocrit 41.7 % (42-52); Base Excess ABG -26.4 mmol/L (-2.0-2.0); Blood Gas Operator Identificat JB; Blood Gas Sample Site Brachial, right; Blood Gas Sample Type Arterial; Carboxyhemoglobin 1.5 %THgb (0.4-20.1); Glucose Level-ABG > 1080.0 mg/dL (70-115); HCO3 ABG 3.1 mmol/L (22-26); HGB O2 Sat 87.9 % (95-100); Ionized Calcium Level - ABG 1.1 mmol/L (1.1-1.4); Methemoglobin 0.7 % (0.4-1.5); Oxygen Device ROOM AIR; Oxygen Saturation ABG 89.8; PO2 ABG 77.2 mmHg (80.0-100.0); Potassium Level - ABG 7.3 mmol/L (3.5-5.0); Total Hemoglobin 13.6 g/dL (14-18)
[2023-06-18 06:42] LABS: Glucose Point of Care > 600 mg/dL (70-110)
[2023-06-18 06:42] LABS: ABG PCO2 12.8 mmHg (35-45)
[2023-06-18 06:46] LABS: Ketone (Acetest) Serum Positive (Negative)
--- NOTE | 2023-06-18 06:48 | PC.NURSE ---
RN into room to place solorzano catheter as ordered. Pt refused catheter. Pt is able to state name, , and place. Pt was awake with eyes open during this. Pt stated, you will not put that catheter in me or I will leave right now. MD notified of refusal. Urinal given to pt and pt instructed to urinate into jug. Attempting to urinate at this time.
[2023-06-18 06:52] LABS: Alanine Aminotransferase 62 U/L (0-41); Albumin Level 4.5 g/dL (3.5-5.2); Alkaline Phosphatase 176 U/L (40-130); Aspartate Amino Transferase 25 U/L (0-40); Blood Urea Nitrogen 44 mg/dL (6-20); Calcium 9.5 mg/dL (8.5-10.5); Chloride 67 mmol/L (98-107); Globulin 2.6 g/dL (1.3-4.6); Glomerular Filtration Rate 28.7 mL/min (90-130); Lipase 11 U/L (13-60); Magnesium 2.7 mg/dL (1.7-2.3); Total Bilirubin 0.4 mg/dL (0.15-1.2); Total Protein 7.1 g/dL (6.6-8.7)
[2023-06-18] MEDS: insulin regular-human 100 units/1 mL 15 UNIT IVP (06:58)
[2023-06-18 07:00] LABS: Osmolality Calculated 326 mOsm/kg (285-295)
[2023-06-18 07:03] LABS: White Blood Count 31.24 10^3/uL (3.29-11.43)
[2023-06-18 07:04] LABS: Anion Gap 52.9 (5-19); Carbon Dioxide 4 mmol/L (22-29); Glucose 1403 mg/dL (65-115); Potassium 7.9 mmol/L (3.5-5.1); Sodium 116 mmol/L (136-145)
--- NOTE | 2023-06-18 07:21 | P.HP_ITS ---
Providers/Chief Complaint Admitting Physician: Ford Carvajal MD Primary Care Provider: Adi Castellon MD Chief Complaint: hyperglycemia History of Present Illness Jean Miller is a 28 year old male presenting to the emergency department with tachypnea, tachycardia, nausea and vomiting. He was found to have DKA in the emergency department. He has had multiple admissions for the same. He has history of methamphetamine use as well. I am not able to get much other history from him. He will come alert, answers questions slowly, and then shut his eyes and go back to sleep. I was able to get from him that he has not had any fever, and not been around anybody that has been ill. Review of Systems General: Reports: 10 or more systems reviewed and unremarkable except in HPI and below and ROS unobtainable due to medical condition (Lethargic currently) Medications/Allergies Home Medications Medication Instructions Recorded Confirmed Last Taken Type blood-glucose meter (OneTouch #1 ea 04/02/22 06/18/23 Unknown Rx Ultra2 Meter kit) blood sugar diagnostic #300 ea 05/12/22 06/18/23 Unknown Rx insulin aspart U-100 100 unit/mL 10 unit (0.1 mL) SUBCUT TID #15 mL 03/12/23 06/18/23 Unknown Rx (3 mL) subcutaneous pen (Novolog FlexPen U-100 Insulin aspart) insulin detemir U-100 100 unit/mL 30 unit (0.3 mL) SUBCUT QPM #3 mL 03/12/23 06/18/23 Unknown Rx (3 mL) subcutaneous pen (Levemir FlexTouch U-100 Insulin) Allergies Allergy/AdvReac Type Severity Reaction Status Date / Time No Known Allergies Allergy Verified 06/18/23 06:25 PFSH Acute PFSH: Medical History (Updated 06/18/23 @ 07:27 by Ford Carvajal MD) Amphetamine abuse Diabetes type 1, uncontrolled History of DKA DKA (diabetic ketoacidosis) History of thyroid nodule right complex nodule, FNA showed benign 03/2022 Hypertension Hyperthyroidism subclinical Long-term insulin use Transaminitis Surgical History No history of previous surgery none known Family History Other Family history unknown Social History Smoking and tobacco status: current every day smoker cigarettes Packs smoked per day: 1 Alcohol intake: former Substance/Drug Use: current Vitals/I&O/Wt Last Vital Signs Temp 97.5 F L 06/18/23 06:14 Pulse 114 H 06/18/23 06:49 Resp 26 H 06/18/23 06:49 BP 91/60 06/18/23 06:49 Pulse Ox 100 06/18/23 06:49 O2 Del Method Room Air 06/18/23 06:49 Weight last 48 hrs Weight 63.503 kg Physical Exam Narrative: General exam is a lethargic white male, who will come alert to answer few que stions. Tachypnea noted. HEENT: Atraumatic normocephalic. Pupils equally round. Oropharynx dry with some caked mucus/blood on the corners of his mouth Neck is supple Cardiovascular tachycardic, regular, no murmur Lungs clear. No wheezing or crackles Abdomen is soft. No obvious organomegaly exam is deferred Extremities no cyanosis clubbing or edema, cap refill brisk Skin no rash Neuro: No obvious focal deficits. Data 06/18/23 06:23 06/18/23 06:23 Other Labs: EKG demonstrates sinus tachycardia, left axis deviation, nonspecific ST-T wave changes. Some peaked T waves are noted. This is on my review. ABG demonstrates pH 7.0, PCO2 12.8, PO2 of 77 on room air LFTs demonstrate elevation of ALT at 62, alk phos of 176. Bilirubin and AST were normal. Magnesium 2.7, calcium 9.5, albumin 4.5, lipase 11. Serum ketones positive Urine drug screen, urinalysis pending Chest x-ray no infiltrate by my read A&P Assessment and plan (1) DKA (diabetic ketoacidosis): Patient presents with acute severe DKA with glucose greater than 1000 He has been rehydrated in the emergency department with 4 L of fluid IV bolus He will transition to an insulin drip per protocol, following his insulin bolus it was given an ambulance as well as the ER Continue to monitor his sugar hourly, and provide hydration When sugar less than 250 start D5 half-normal saline Close follow-up of electrolytes with repeat BMP around 9 AM, 3 hours from previous Etiology of this is not known currently but suspected that he did not take his insulin. We will continue to follow closely. CBC, BMP in the morning (2) Acute encephalopathy: Patient presents with acute encephalopathy secondary to metabolic causes, DKA versus hyperglycemia Monitor for improvement (3) Acute hyperkalemia: Secondary to severe acidosis Continue hydration, recheck potassium in 3 hours (4) Acute kidney injury: Hydration Creatinine will be repeated daily Plan Transaminitis. Monitor liver function test returned to normal. He has had multiple hepatitis panels in the past that were negative. Consider repeating this should enzymes stay elevated Other medical problems as outlined in his past medical history. Await urine drug screen secondary to past history of methamphetamine use and urinalysis. History of abnormal thyroid testing. Repeat today. Full code Lovenox for DVT prophylaxis Attestations Medical Necessity Statement*: Will need greater than 2 midnight stay for evaluation and treatment of severe metabolic acidosis related to DKA Critical Care Time: The high probability of a clinically significant, sudden or life threatening deterioration of the patient's [neurologic, endocrine, metabolic, renal] system(s) required my full and direct attention, intervention and personal management. The critical care time is as shown. This time is in addition to time spent performing any reported procedures but includes the following: [x] Data and vital sign review and interpretation [x] Patient assessment, examination and intervention [x] Documentation [x] Medication orders and management Critical Care Time (min): 50 Coding Level of Care Code Critical Care >/= 30 minutes Critical care time (in minutes): 50 The high probability of a clinically significant, sudden or life threatening deterioration, as referenced in this documentation, required my full and direct attention, intervention and personal management. The critical care time shown is in addition to time spent performing any reported separately billable procedures and includes the following: [x] Data and vital sign review and interpretation [x ] Patient assessment, examination and intervention [x] Medication orders and management [x] Patient/Family updates as able [x] Care Coordination and Documentation. Diagnoses DKA (diabetic ketoacidosis) E11.10 Acute encephalopathy G93.40 Acute hyperkalemia E87.5 Acute kidney injury N17.9
[2023-06-18 07:27] LABS: Phosphorus 13.1 mg/dL (2.5-4.5)
[2023-06-18 07:50] LABS: Glucose Point of Care > 600 mg/dL (70-110)
[2023-06-18 08:00] LABS: Free T4 Free Thyroxine 1.37 ng/dL (0.82-1.77); T3 Free 2.1 PG/ML (2.0-4.4); Thyroid Stimulating Hormone 0.79 uIU/mL (0.27-4.20)
--- NOTE | 2023-06-18 08:03 | PC.NURSE ---
Checked patients blood glucose at 0732 and it read HI . I reported it to Dr. Ca and Dr. Carvajal
[2023-06-18 09:11] LABS: Glucose Point of Care > 600 mg/dL (70-110)
[2023-06-18] MEDS: insulin regular-human 250 UNIT in sodium chloride 0.9% 250 ML 6.06 UNIT IV (09:23)
[2023-06-18] MEDS: sodium chloride 0.9% 1,000 ML 200 ML IV (09:25)
[2023-06-18] MEDS: pantoprazole 40 mg SDV IVP (09:55)
--- NOTE | 2023-06-18 10:03 | PC.NURSE ---
Admit Pt brought to unit via gurney by ER staff. Pt is very tired, he will answer questions and then go immediately back to sleep. IV's to left hand and right AC patent and flush well. Insulin has been initiated once coming to the unit. Pt does have belongings including shorts, tshirt, black athletic pants and a red vape. Clothing placed in closet at bedside and vape labeled and placed in the pyxis.
[2023-06-18 10:17] LABS: Add Urine Microscopic? NO; Charge for UA Resulting for Rev
[2023-06-18 10:19] LABS: Glucose Point of Care > 600 mg/dL (70-110)
--- NOTE | 2023-06-18 10:37 | PC.NURSE ---
Blood sugar- 10am BG check shows hi' on glucometer, indicating it is greater than 600. Blood for a BMP was also drawn at time of BG check so an accurate BG can be obtained from lab. NUrse increased insulin per protocol and alerted DR Carvajal. Per protocol there is also supposed to be a Bolus as well, radha ordered not to give the bolus at this time and to contact him once Lab glucose results and he will determine the need for a bolus then.
[2023-06-18 10:38] LABS: Bilirubin Urine Neg (Negative); Blood Urine Neg (Negative); Glucose Urine UA 4+ (Normal); Ketones Urine 3+ (Negative); Leukocyte Esterase Urine Negative (Negative); Nitrate Urine Negative (Negative); Protein Urine Neg (Negative); Specific Gravity, Urine 1.015 (1.005-1.030); Urine Appearance Clear (CLEAR); Urine Color Yellow (Yellow); Urobilinogen Urine Norm (Negative); pH Urine 5 (5-7)
--- NOTE | 2023-06-18 10:40 | PC.NURSE ---
Received patient from ER staff at 0921. HR: 116, BP: 114/81, RR: 19, SPO2: 100% on room air, Temp: 97.8. Patient is lethargic, when asked orientation questions his responses are mumbled and not understandable. Patient was able to follow direction and trasnferred himself from ER gurney to ICU bed. Insulin started per protocol.
[2023-06-18 10:42] LABS: Anion Gap 35.1 (5-19); Blood Urea Nitrogen 36 mg/dL (6-20); Calcium 7.9 mg/dL (8.5-10.5); Chloride 96 mmol/L (98-107); Glomerular Filtration Rate 43.1 mL/min (90-130); Osmolality Calculated 319 mOsm/kg (285-295); Potassium 4.1 mmol/L (3.5-5.1); Sodium 134 mmol/L (136-145)
[2023-06-18 10:45] LABS: Amphetamines Screen Urine Positive (Negative); Barbiturates Screen Urine Negative (Negative); Benzodiazepines Screen Urine Negative (Negative); Cocaine Screen Urine Negative (Negative); Opiate Screen Urine Negative (Negative); PCP Screen Urine Negative (Negative); THC Screen Urine Negative (Negative)
[2023-06-18 10:47] LABS: Carbon Dioxide 7 mmol/L (22-29); Creatinine Clr Calc Pharmacy 57.6677; Glucose 691 mg/dL (65-115)
[2023-06-18] MEDS: sodium chlor 0.9% + KCl 20 mEq 20 MEQ/1,000 ML BAG 175 MEQ IV (11:11)
[2023-06-18 11:17] LABS: Glucose Point of Care 464 mg/dL (70-110)
[2023-06-18 12:19] LABS: Glucose Point of Care 321 mg/dL (70-110)
[2023-06-18 13:10] LABS: Glucose Point of Care 278 mg/dL (70-110)
[2023-06-18] MEDS: D5-NS 0.45% + KCL 20 mEq 20 MEQ/1,000 ML BAG 125 MEQ IV ×2 (14:31→21:22)
[2023-06-18 14:35] LABS: Glucose Point of Care 144 mg/dL (70-110)
[2023-06-18 14:44] LABS: Blood Urea Nitrogen 30 mg/dL (6-20); Calcium 8.6 mg/dL (8.5-10.5); Carbon Dioxide 19 mmol/L (22-29); Chloride 108 mmol/L (98-107); Glomerular Filtration Rate 66.7 mL/min (90-130); Glucose 148 mg/dL (65-115); Osmolality Calculated 301 mOsm/kg (285-295); Sodium 141 mmol/L (136-145)
[2023-06-18 15:17] LABS: Glucose Point of Care 113 mg/dL (70-110)
[2023-06-18 15:17] LABS: Glucose Point of Care 142 mg/dL (70-110)
[2023-06-18 16:09] LABS: Glucose Point of Care 175 mg/dL (70-110)
--- NOTE | 2023-06-18 16:59 | PC.NURSE ---
Blood sugar quickly dropped while receiving insulin. Insulin reduced to 1 unit/hr and started D5 1/2 NS+[address] Carvajal advised to allow BG to rise back up to the 300-350 range. After BG is within that range, increase insulin to 2 units/hr and then again follow insulin protocol.
--- NOTE | 2023-06-18 17:43 | PC.NURSE ---
Shift Summary: uneventful shift. Patient rested in bed throughout the day. still on insulin drip. Though still lethargic, patient's mental status has improved and he is oriented to person, place, time and situation.
[2023-06-18 18:06] LABS: Glucose Point of Care 263 mg/dL (70-110)
[2023-06-18 18:10] LABS: Glucose Point of Care 247 mg/dL (70-110)
[2023-06-18 18:43] LABS: Anion Gap 20.4 (5-19); Blood Urea Nitrogen 27 mg/dL (6-20); Calcium 7.9 mg/dL (8.5-10.5); Carbon Dioxide 17 mmol/L (22-29); Chloride 105 mmol/L (98-107); Creatinine Clr Calc Pharmacy 91.3071; Glomerular Filtration Rate 73.2 mL/min (90-130); Glucose 275 mg/dL (65-115); Osmolality Calculated 301 mOsm/kg (285-295); Potassium 4.4 mmol/L (3.5-5.1); Sodium 138 mmol/L (136-145)
[2023-06-18 19:11] LABS: Glucose Point of Care 285 mg/dL (70-110)
[2023-06-18 20:04] LABS: Glucose Point of Care 323 mg/dL (70-110)
[2023-06-18] MEDS: enoxaparin 40 mg/0.4 mL Syringe SUBCUT (21:06)
[2023-06-18 21:08] LABS: Glucose Point of Care 323 mg/dL (70-110)
[2023-06-18 22:16] LABS: Glucose Point of Care 264 mg/dL (70-110)
[2023-06-18 23:06] LABS: Glucose Point of Care 182 mg/dL (70-110)
[2023-06-18 23:53] LABS: Glucose Point of Care 167 mg/dL (70-110)
[2023-06-19] VITALS (94 sets, daily range): BP systolic 114–164; BP diastolic 84–113; PULSE 104–126; RESP 6–27; TEMP 36.4–36.9; O2SAT 95–100
[2023-06-19 00:35] LABS: Blood Urea Nitrogen 21 mg/dL (6-20); Calcium 8.4 mg/dL (8.5-10.5); Carbon Dioxide 22 mmol/L (22-29); Chloride 105 mmol/L (98-107); Glucose 175 mg/dL (65-115); Osmolality Calculated 293 mOsm/kg (285-295); Sodium 138 mmol/L (136-145)
[2023-06-19 01:05] LABS: Glucose Point of Care 220 mg/dL (70-110)
--- NOTE | 2023-06-19 01:50 | PC.NURSE ---
Hospitalist notified regarding corrected DKA labs. Instructed to hold off from bridging patient and continue to monitor BG. Insulin drip currently off per protocol. Will continue to monitor sugars due to D5 running @125
[2023-06-19 02:07] LABS: Glucose Point of Care 326 mg/dL (70-110)
[2023-06-19 03:09] LABS: Glucose Point of Care 354 mg/dL (70-110)
[2023-06-19 04:13] LABS: Glucose Point of Care 307 mg/dL (70-110)
[2023-06-19 05:05] LABS: Basophils # 0.1 10^3/uL (0.0-0.1); Basophils % 0.5 %; Eosinophils % 0.1 %; Lymphocytes # 2.8 10^3/uL (0.8-4.8); Lymphocytes % 14.7 %; Mean Corpuscular HGB Conc 33.3 g/dL (30-55); Mean Corpuscular Hemoglobin 29.5 pg (27-33); Mean Corpuscular Volume 88.7 fl (82-101); Mean Platelet Volume 10.9 fL (7.4-10.4); Monocytes % 5.4 %; Neutrophils # 14.79 10^3/uL (1.8-7.7); Neutrophils % 78.4 %; Nucleated Red Blood Cells % 0 %; Platelet Count 278 10^3/cmm (157-399); Red Blood Count 4.51 10^6/uL (3.85-5.65); Red Cell Distribution Width 12.5 % (12.1-15.1); White Blood Count 18.84 10^3/uL (3.29-11.43)
[2023-06-19 05:18] LABS: Glucose Point of Care 218 mg/dL (70-110)
[2023-06-19] MEDS: D5-NS 0.45% + KCL 20 mEq 20 MEQ/1,000 ML BAG 125 MEQ IV (05:19)
[2023-06-19 05:30] LABS: Alanine Aminotransferase 37 U/L (0-41); Albumin Level 3.5 g/dL (3.5-5.2); Alkaline Phosphatase 100 U/L (40-130); Anion Gap 15.1 (5-19); Aspartate Amino Transferase 13 U/L (0-40); Blood Urea Nitrogen 19 mg/dL (6-20); Calcium 8.6 mg/dL (8.5-10.5); Carbon Dioxide 22 mmol/L (22-29); Chloride 103 mmol/L (98-107); Globulin 1.8 g/dL (1.3-4.6); Glucose 257 mg/dL (65-115); Magnesium 1.7 mg/dL (1.7-2.3); Osmolality Calculated 293 mOsm/kg (285-295); Potassium 4.1 mmol/L (3.5-5.1); Sodium 136 mmol/L (136-145); Total Bilirubin 0.3 mg/dL (0.15-1.2); Total Protein 5.3 g/dL (6.6-8.7)
[2023-06-19 06:12] LABS: Glucose Point of Care 134 mg/dL (70-110)
[2023-06-19] MEDS: insulin glargine 100 units/1 mL 20 UNIT SUBCUT ×2 (08:27→21:00)
[2023-06-19] MEDS: pantoprazole 40 mg SDV IVP (08:40)
[2023-06-19] MEDS: sodium chlor 0.9% + KCl 20 mEq 20 MEQ/1,000 ML BAG 125 MEQ IV ×2 (08:41→18:12)
[2023-06-19] MEDS: insulin lispro 100 unit/1 mL SUBCUT ×3 (11:26→20:59)
--- NOTE | 2023-06-19 12:39 | P.PN_ITS ---
Subjective Subjective: Awakens easily. Still very tired. I have seen him several times today and transition him to long-acting insulin. He is able to eat a little bit. Medications: Reviewed: Yes Vitals/I&O/Wt Last Vital Signs Temp 97.9 F 06/18/23 20:50 Pulse 107 H 06/19/23 08:00 Resp 14 06/19/23 08:00 BP 141/89 06/19/23 08:00 Pulse Ox 99 06/19/23 08:00 O2 Del Method Room Air 06/18/23 19:00 06/18/23 06/19/23 06/19/23 22:59 06:59 14:59 Intake Total 1868.273 / 4931.151 1017.657 / 5948.808 1147.376 / 1147.376 Output Total 850 / 1800 900 / 2700 Balance 1018.273 / 3131.151 117.657 / 3248.808 1147.376 / 1147.376 Weight last 48 hrs Weight 65.317 kg Weight 63.503 kg Physical Exam Narrative: General exam Sleepy but arouses Neck is supple Cardiovascular slight tachycardia, regular, no murmur Lungs clear. No wheezing or crackles Abdomen is soft. No obvious organomegaly exam is deferred Extremities no cyanosis clubbing or edema, cap refill brisk Data 06/19/23 04:19 06/19/23 04:19 A&P Assessment and plan (1) DKA (diabetic ketoacidosis): Patient presents with acute severe DKA with glucose greater than 1000 He has been rehydrated in the emergency department with 4 L of fluid IV bolus Anion gap has resolved. Transition to long-acting insulin. Check BMP this afternoon to make sure no gap recurs. If no recurrence of gap, transfer to floor. He is not yet ready to go home. He is not eating and drinking quite as well as I would like him there is likely high likelihood of recurrence especially with his history of drug use. CBC, CMP, magnesium in the morning (2) Acute encephalopathy: Improved (3) Acute hyperkalemia: Resolved (4) Acute kidney injury: Resolved Plan Transaminitis. Resolved Methamphetamine use. Refuses rehabilitation History of abnormal thyroid testing. Thyroid testing normal this hospitaliza tion Full code Lovenox for DVT prophylaxis Attestations Medical Necessity Statement*: Needs continued hospitalization for close monitoring with transition to long- acting insulin from insulin drip Diagnoses DKA (diabetic ketoacidosis) E11.10 Acute encephalopathy G93.40 Acute hyperkalemia E87.5 Acute kidney injury N17.9 Time Spent (min) 47
[2023-06-19 13:51] LABS: Blood Urea Nitrogen 14 mg/dL (6-20); Calcium 8.5 mg/dL (8.5-10.5); Carbon Dioxide 21 mmol/L (22-29); Chloride 101 mmol/L (98-107); Creatinine Clr Calc Pharmacy 123.0194; Glucose 291 mg/dL (65-115); Magnesium 1.8 mg/dL (1.7-2.3); Osmolality Calculated 291 mOsm/kg (285-295); Sodium 135 mmol/L (136-145)
[2023-06-19 13:52] LABS: Anion Gap 17.3 (5-19); Potassium 4.3 mmol/L (3.5-5.1)
[2023-06-19 16:16] LABS: Glucose Point of Care 340 mg/dL (70-110)
[2023-06-19] MEDS: enoxaparin 40 mg/0.4 mL Syringe SUBCUT (19:47)
[2023-06-19 20:59] LABS: Glucose Point of Care 225 mg/dL (70-110)
[2023-06-20] MEDS: sodium chlor 0.9% + KCl 20 mEq 20 MEQ/1,000 ML BAG 125 MEQ IV (02:08)
[2023-06-20 03:48] VITALS: BP 155/102; PULSE 96; RESP 17; TEMP 36.7; O2SAT 97
[2023-06-20 04:02] VITALS: BP 155/90
[2023-06-20 05:33] LABS: Basophils % 0.5 %; Eosinophils # 0.1 10^3/uL (0.0-0.8); Eosinophils % 0.6 %; Hematocrit 37.2 % (37-53); Lymphocytes # 2.1 10^3/uL (0.8-4.8); Lymphocytes % 25.6 %; Mean Corpuscular HGB Conc 33.1 g/dL (30-55); Mean Corpuscular Hemoglobin 29.2 pg (27-33); Mean Corpuscular Volume 88.4 fl (82-101); Mean Platelet Volume 10.6 fL (7.4-10.4); Monocytes # 0.7 10^3/uL (0.2-0.9); Monocytes % 8.4 %; Neutrophils # 5.19 10^3/uL (1.8-7.7); Neutrophils % 64.7 %; Nucleated Red Blood Cells % 0 %; Platelet Count 222 10^3/cmm (157-399); Red Blood Count 4.21 10^6/uL (3.85-5.65); Red Cell Distribution Width 12.2 % (12.1-15.1); White Blood Count 8.02 10^3/uL (3.29-11.43)
[2023-06-20 05:53] LABS: Alanine Aminotransferase 29 U/L (0-41); Albumin Level 3.2 g/dL (3.5-5.2); Alkaline Phosphatase 103 U/L (40-130); Anion Gap 10.9 (5-19); Aspartate Amino Transferase 16 U/L (0-40); Blood Urea Nitrogen 12 mg/dL (6-20); Calcium 8.5 mg/dL (8.5-10.5); Carbon Dioxide 28 mmol/L (22-29); Chloride 100 mmol/L (98-107); Globulin 1.9 g/dL (1.3-4.6); Glomerular Filtration Rate 162.9 mL/min (90-130); Glucose 187 mg/dL (65-115); Magnesium 1.8 mg/dL (1.7-2.3); Osmolality Calculated 285 mOsm/kg (285-295); Potassium 3.9 mmol/L (3.5-5.1); Sodium 135 mmol/L (136-145); Total Bilirubin 0.3 mg/dL (0.15-1.2); Total Protein 5.1 g/dL (6.6-8.7)
[2023-06-20 06:00] VITALS: PULSE 89
[2023-06-20 06:30] VITALS: BMI 20.4
[2023-06-20 06:38] LABS: Glucose Point of Care 171 mg/dL (70-110)
[2023-06-20 07:18] VITALS: BP 166/107; PULSE 86; RESP 16; O2SAT 97
--- NOTE | 2023-06-20 07:49 | PM.DCS ---
Discharge Providers Date of Admission: 06/18/23 08:04 Date of Discharge: June 20, 2023 Attending Provider at Admission: Ford Carvajal MD Attending Provider at Discharge: Ford Carvajal MD Primary Care Provider: Adi Castellon MD Diagnoses at Discharge Discharge Diagnosis (1) DKA (diabetic ketoacidosis): Status: Acute (2) Acute encephalopathy: Status: Acute (3) Acute hyperkalemia: Status: Acute (4) Acute kidney injury: Status: Acute Reason for Visit Reason for Visit: hyperglycemia Hospital Course Hospital Course Max is a 28-year-old white male with type 1 diabetes who presented to the hospital with nausea and vomiting. He was found to be in DKA. Urine drug screen was positive for methamphetamine. Patient was encephalopathic on admission, but there was concern he had not taken his insulin while using methamphetamine. He was admitted to the ICU after appropriate hydration and placed on an insulin drip with close electrolyte monitoring. Over the course of his hospital stay he improved greatly. By June 19 his anion gap was reduced significantly and he was changed to long-acting insulin. He was however still lethargic/encephalopathic so therefore was not discharged. He was transferred to the regular floor and continue to be monitored until June 20. At that time he was alert, oriented, ambulatory. His anion gap was 10.9. It was thought he could be discharged home. He was offered rehabilitation which he refused. He will be given numbers for outpatient rehab and renal resources should he change his mind. I discussed with him that his quality of life, will continue to decrease with his drug use and this may ultimately cost him his life. He was given opportunity ask questions, and agreed with the plan. He will see his primary care provider in 3 to 5 days. Physical Exam Narrative: General exam is no distress Neck is supple Cardiovascular regular rate and rhythm, no murmur Lungs clear Abdomen soft, positive bowel sounds Extremities no sinus clubbing edema Neuro no focal deficits, alert and oriented x3, decisional Discharge Data Studies Completed and Pending Completed Studies During Hospitalization Category Date Time Status XR chest 1V portable [id number] Stat Exams 06/18/23 06:18 Completed Radiology Impressions Chest X-Ray 06/18/23 06:18 IMPRESSION: No lobar consolidation is appreciated.No interval acute cardiopulmonary changes are appreciated. Laboratory Results WBC 8.02 10^3/uL (3.29-11.43) 06/20/23 05:07 RBC 4.21 10^6/uL (3.85-5.65) 06/20/23 05:07 Hgb 12.30 g/dL (11.27-16.99) 06/20/23 05:07 Hct 37.2 % (37-53) 06/20/23 05:07 MCV 88.4 fl (82-101) 06/20/23 05:07 MCH 29.2 pg (27-33) 06/20/23 05:07 MCHC 33.1 g/dL (30-55) 06/20/23 05:07 RDW 12.2 % (12.1-15.1) 06/20/23 05:07 Plt Count 222 10^3/cmm (157-399) 06/20/23 05:07 MPV 10.6 fL (7.4-10.4) H 06/20/23 05:07 Neut % (Auto) 64.7 % 06/20/23 05:07 Lymph % (Auto) 25.6 % 06/20/23 05:07 [place] % (Auto) 8.4 % 06/20/23 05:07 Eos % (Auto) 0.6 % 06/20/23 05:07 Baso % (Auto) 0.5 % 06/20/23 05:07 Neut # (Auto) 5.19 10^3/uL (1.8-7.7) 06/20/23 05:07 Lymph # (Auto) 2.1 10^3/uL (0.8-4.8) 06/20/23 05:07 [place] # (Auto) 0.7 10^3/uL (0.2-0.9) 06/20/23 05:07 Eos # (Auto) 0.1 10^3/uL (0.0-0.8) 06/20/23 05:07 Baso # (Auto) 0.0 10^3/uL (0.0-0.1) 06/20/23 05:07 Nucleated RBC % (auto) 0 % 06/20/23 05:07 Nucleated RBCs # 0.0 /100WBC 06/20/23 05:07 Specimen Type Arterial 06/18/23 06:25 Sample Site Brachial, right 06/18/23 06:25 ABG pH 7.00 (7.35-7.45) L* 06/18/23 06:25 ABG pCO2 12.8 mmHg (35-45) L* 06/18/23 06:25 ABG pO2 77.2 mmHg (80.0-100.0) L 06/18/23 06:25 ABG HCO3 3.1 mmol/L (22-26) L 06/18/23 06:25 ABG O2 Saturation 89.8 06/18/23 06:25 ABG Base Excess -26.4 mmol/L (-2.0-2.0) L 06/18/23 06:25 [place] Test N/a 06/18/23 06:25 A-a O2 Gradient 7.0 mmHg (5-10) 06/18/23 06:25 Hematocrit 41.7 % (42-52) L 06/18/23 06:25 Hgb O2 Saturation 87.9 % (95-100) L 06/18/23 06:25 Carboxyhemoglobin 1.5 %THgb (0.4-20.1) 06/18/23 06:25 Methemoglobin 0.7 % (0.4-1.5) 06/18/23 06:25 Total Hemoglobin 13.6 g/dL (14-18) L 06/18/23 06:25 Sodium 116.0 mmol/L (131-143) L 06/18/23 06:25 Potassium 7.3 mmol/L (3.5-5.0) H 06/18/23 06:25 Glucose > 1080.0 mg/dL (70-115) H 06/18/23 06:25 Ionized Calcium 1.1 mmol/L (1.1-1.4) 06/18/23 06:25 O2 Delivery Device Room air 06/18/23 06:25 FiO2 21.0 % 06/18/23 06:25 Corrugated Sheet Material Sheeter ID Jesus Alberto 06/18/23 06:25 Sodium 135 mmol/L (136-145) L 06/20/23 05:07 Potassium 3.9 mmol/L (3.5-5.1) 06/20/23 05:07 Chloride 100 mmol/L (98-107) 06/20/23 05:07 Carbon Dioxide 28 mmol/L (22-29) 06/20/23 05:07 Anion Gap 10.9 (5-19) 06/20/23 05:07 BUN 12 mg/dL (6-20) 06/20/23 05:07 Creatinine 0.6 mg/dL (0.7-1.2) L 06/20/23 05:07 GFR Calculation 162.9 mL/min (90-130) H 06/20/23 05:07 Glucose 187 mg/dL (65-115) H 06/20/23 05:07 POC Glucose 171 mg/dL (70-110) H 06/20/23 06:28 Calculated Osmolality 285 mOsm/kg (285-295) 06/20/23 05:07 Calcium 8.5 mg/dL (8.5-10.5) 06/20/23 05:07 Phosphorus 4.0 mg/dL (2.5-4.5) D 06/18/23 17:37 Magnesium 1.8 mg/dL (1.7-2.3) 06/20/23 05:07 Total Bilirubin 0.3 mg/dL (0.15-1.2) 06/20/23 05:07 AST 16 U/L (0-40) 06/20/23 05:07 ALT 29 U/L (0-41) 06/20/23 05:07 Alkaline Phosphatase 103 U/L (40-130) 06/20/23 05:07 Total Protein 5.1 g/dL (6.6-8.7) L 06/20/23 05:07 Albumin 3.2 g/dL (3.5-5.2) L 06/20/23 05:07 Globulin 1.9 g/dL (1.3-4.6) 06/20/23 05:07 Lipase 11 U/L (13-60) L 06/18/23 06:23 TSH 0.79 uIU/mL (0.27-4.20) 06/18/23 06:23 Free T4 1.37 ng/dL (0.82-1.77) 06/18/23 06:23 Free T3 2.1 PG/ML (2.0-4.4) 06/18/23 06:23 Urine Color Yellow (Yellow) 06/18/23 09:08 Urine Appearance Clear (CLEAR) 06/18/23 09:08 Urine pH 5 (5-7) 06/18/23 09:08 Ur Specific [place] 1.015 (1.005-1.030) 06/18/23 09:08 Urine Protein Neg (Negative) 06/18/23 09:08 Urine Glucose (UA) 4+ (Normal) H 06/18/23 09:08 Urine Ketones 3+ (Negative) H 06/18/23 09:08 Urine Blood Neg (Negative) 06/18/23 09:08 Urine Nitrate Negative (Negative) 06/18/23 09:08 Urine Bilirubin Neg (Negative) 06/18/23 09:08 Urine Urobilinogen Norm mg/dL (Negative) 06/18/23 09:08 Ur Leukocyte Esterase Negative (Negative) 06/18/23 09:08 Urine Opiates Screen Negative ng/mL (Negative) 06/18/23 09:08 Ur Barbiturates Screen Negative ng/mL (Negative) 06/18/23 09:08 Ur Phencyclidine Scrn Negative ng/mL (Negative) 06/18/23 09:08 Ur Amphetamines Screen Positive ng/mL (Negative) H 06/18/23 09:08 U Benzodiazepines Scrn Negative ng/mL (Negative) 06/18/23 09:08 Urine Cocaine Screen Negative ng/mL (Negative) 06/18/23 09:08 U Marijuana (THC) Screen Negative ng/mL (Negative) 06/18/23 09:08 Serum Ketones Positive (Negative) H 06/18/23 06:23 Vitals Last Vital Signs Temp 98.1 F 06/20/23 03:48 Pulse 86 06/20/23 07:18 Resp 16 06/20/23 07:18 BP 166/107 06/20/23 07:18 Pulse Ox 97 06/20/23 07:18 O2 Del Method Room Air 06/20/23 07:18 Discharge Plan Discharge Patient Disposition: Home Condition: Stable Prescriptions: Continued (DME) blood-glucose meter [OneTouch Ultra2 Meter] Kit See Rx Instructions .Route Qty: 1 0RF Rx Instructions: To use TID to check blood sugar levels before taking insulin (DME) blood sugar diagnostic Strip See Rx Instructions .Route Qty: 300 3RF Rx Instructions: To use TID in onetouch meter to check blood sugar, 90 day supply insulin aspart U-100 [Novolog FlexPen U-100 Insulin] 100 unit/mL (3 mL) insulin pen 10 unit SUBCUT TID Qty: 15 3RF Levemir FlexTouch U100 Insulin 100 unit/mL (3 mL) insulin pen 30 unit SUBCUT QPM Qty: 3 3RF Discharge Orders: Discharge Order (Routine); Ordered 06/20/23 Ordered By: Ford Carvajal Referrals: Adi Castellon MD [Primary Care Provider] - 4-7 days Discharge Diet: Diabetic Discharge Activity: Increase activity as tolerated Patient Instructions: Opioid Safety Activity Restrictions/Additional Instructions: Do not use any drugs. Take insulin as prescribed. Follow-up with your primary care provider 3 to 5 days. Please give him contact numbers for rehabilitation, outpatient, should he change his mind and pursue this. Discharge Attestations Time Spent in Discharge Care*: greater than 30 min Status at Discharge: Cognitive status at discharge: cognitively intact, Behavioral status at discharge: cooperative, Quality Metrics Clinical Quality Measures [ No reported AMI, CVA or VTE this stay] Coding Level of Care Code 86732 Total time (in minutes) for Discharge: 36 Diagnoses DKA (diabetic ketoacidosis) E11.10 Acute encephalopathy G93.40 Acute hyperkalemia E87.5 Acute kidney injury N17.9
[2023-06-20 08:05] LABS: Glucose Point of Care 358 mg/dL (70-110)
[2023-06-20] MEDS: insulin lispro 100 unit/1 mL SUBCUT ×2 (08:46→11:57)
[2023-06-20] MEDS: insulin glargine 100 units/1 mL 10 UNIT SUBCUT (08:46)
[2023-06-20] MEDS: pantoprazole DR 40 mg Tablet PO (08:46)
[2023-06-20 10:56] LABS: Glucose Point of Care 288 mg/dL (70-110)
--- NOTE | 2023-06-20 10:56 | PC.CHAP ---
Pastoral Care Encounter/Spiritual Assessment Type of Contact [x] Declined staff nuclear medicine technologist visit [] Patient/Family/Request visit [] Outpatient visit [] Follow-up visit [] Physician referral [] Code/Alert [] Routine visit [] Staff referral [] Actively dying [] Patient sleeping [] Family support [] [] Out of room [] Palliative care [] [] Receiving care in room [] Pre-surgical visit [] Trauma [] Long length of stay [] ICU visit [] Other: Relational/Emotional Strength [] Patient feels connected with others/family/visitors/staff [] Distress [] Loneliness/isolation [] Abandonment Spirituality of Patient [] Person of Lea [] Attends Jehovah'S Witness of their Lea [] Believes in Prayer [] Reads Bible or Sikh materials [] There are Spiritual issues to be addressed 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 Interventions [] Prayer [] Active listening [] Non-anxious presence [] Spiritual/emotional support [] Crisis/trauma care [] Spiritual counseling [] Bereavement support [] Provided bereavement packet [] Provided Bible/devotional materials [] Provided toy/stuffed animal, coloring book to patient or family member [] Provided Communion [] Anointing/[place] [] Salvation [] Completed spiritual assessment [] Other: Impact on Illness or Injury [] Angry [] Fearful [] Anxious [] Often cries [] Exhaustion [] Unable to work [] Unable to attend anabaptist [] Unable to walk/stand [] Unable to read [] Unable to drive [] Unable to eat/drink [] Unable to sleep [] Unable to be with family [] Patient intubated [] Other: Summary Declined staff nuclear medicine technologist visit Time spent with patient 5mins
[2023-06-20 11:22] VITALS: BP 143/98; PULSE 93; RESP 18; TEMP 36.7; O2SAT 99
[2023-06-20 13:56] VITALS: BP 143/98; PULSE 93; RESP 18; TEMP 36.7; O2SAT 99
== END 2023-06-20 13:40 | disposition hospice, inpatient (51) | DRG 637 ==
LOC: ER 07:39 → ICU 08:04 → MEDSURG 06-19 15:26
PROVIDERS: Admitting Provider Internal Medicine; Emergency Provider Family Medicine; PCP Family Medicine; Visit Provider Internal Medicine
DX: E10.10 Type 1 diabetes mellitus with ketoacidosis without coma (principal); G93.41 Metabolic encephalopathy; N17.9 Acute kidney failure, unspecified; F15.10 Other stimulant abuse, uncomplicated; I10 Essential (primary) hypertension; E05.90 Thyrotoxicosis, unspecified without thyrotoxic crisis or storm; F17.210 Nicotine dependence, cigarettes, uncomplicated; E87.5 Hyperkalemia
CPT/HCPCS: 36415; 36416; 71045; 80048; 80051; 80053; 80306; 81003; 82009; 82330; 82805; 82962; 83690; 83735; 84100; 84439; 84443; 84481; 85025; 93005; 96365; 96372; 96375; 96376; 99285; C9113; J1650; J1815; J2405; J3480; J7030; J7050

== ENCOUNTER 2023-07-25 16:46 | Inpatient (IN) | payer MEDICAID, SELFPAY ==
[2023-07-25] VITALS (27 sets, daily range): BP systolic 109–165; BP diastolic 78–106; PULSE 107–129; RESP 14–34; TEMP 35.8–36.7; O2SAT 98–100
[2023-07-25] MEDS: sodium chloride 0.9% 1,000 ML 999 ML IV ×4 (17:03→18:40)
--- NOTE | 2023-07-25 17:03 | XRR_ITS ---
PROCEDURE INFORMATION: Exam: XR Chest Exam date and time: 07/25/2023 5:37 PM Age: 28 years old Clinical indication: Cough and dyspnea and other: Chest pain; Other: U/n; Patient HX: SOB; Additional info: Dyspnea/cough TECHNIQUE: Imaging protocol: Radiologic exam of the chest. Views: 1 view. COMPARISON: CR XR chest 1V portable [id number] 06/18/2023 6:23 AM FINDINGS: Lungs: Unremarkable. No consolidation. Pleural spaces: Unremarkable. No pleural effusion. No pneumothorax. Heart/Mediastinum: Unremarkable. No cardiomegaly. Bones/joints: Unremarkable. XR/XR chest 1V portable [id number] IMPRESSION: No acute findings.
--- NOTE | 2023-07-25 17:04 | P.HP_ITS ---
Providers/Chief Complaint Primary Care Provider: Adi Castellon MD Chief Complaint: DKA History of Present Illness Jena Miller is a 28 year old male who close history of type 1 diabetes, recurrent DKA admissions. Presented with chief complaint abdominal pain nausea and vomiting along diarrhea. He has missed his insulin, he is endorsing to use of methamphetamine. In the ER he was diagnosed with severe DKA, he was transferred to ICU he was started on bicarb drip for severe metabolic acidosis along insulin drip and IV fluids. Electrolytes were replenished. Review of Systems ENMT: Denies: throat pain Card: Denies: chest pain Resp: Denies: dyspnea GI: Denies: abdominal pain Musc: Denies: neck pain Skin/Breast: Denies: rash Medications/Allergies Home Medications Medication Instructions Recorded Confirmed Last Taken Type blood-glucose meter (OneTouch #1 ea 04/02/22 06/18/23 Unknown Rx Ultra2 Meter kit) blood sugar diagnostic #300 ea 05/12/22 06/18/23 Unknown Rx insulin aspart U-100 100 unit/mL 10 unit (0.1 mL) SUBCUT TID #15 mL 03/12/23 06/18/23 Unknown Rx (3 mL) subcutaneous pen (Novolog FlexPen U-100 Insulin aspart) insulin detemir U-100 100 unit/mL 30 unit (0.3 mL) SUBCUT QPM #3 mL 03/12/23 06/18/23 Unknown Rx (3 mL) subcutaneous pen (Levemir FlexTouch U-100 Insulin) Allergies Allergy/AdvReac Type Severity Reaction Status Date / Time No Known Allergies Allergy Verified 07/25/23 16:55 PFSH Acute 2 PFSH: Medical History Amphetamine abuse Diabetes type 1, uncontrolled History of DKA DKA (diabetic ketoacidosis) History of thyroid nodule right complex nodule, FNA showed benign 03/2022 Hypertension Hyperthyroidism subclinical Long-term insulin use Transaminitis Surgical History No history of previous surgery none known Family History Other Family history unknown Social History Smoking and tobacco/nicotine status: current every day tobacco/nicotine user cigarettes Packs smoked per day: 1 Alcohol intake: former Substance/Drug Use: current Vitals/I&O/Wt Last Vital Signs Pulse 110 H 07/25/23 16:51 Resp 34 H 07/25/23 16:51 BP 133/94 07/25/23 16:51 Pulse Ox 100 07/25/23 16:51 O2 Del Method Room Air 07/25/23 16:51 Weight last 48 hrs Weight 68.039 kg Physical Exam Narrative: Awake and alert Fatigue lethargic GCS 15 Nonfocal neuro exam S1, S2 sinus tachycardia Abdomen soft Clinically looks dehydrated Data 07/26/23 03:57 07/26/23 03:57 A&P Assessment and plan (1) Type 1 diabetes mellitus, uncontrolled: (2) DKA (diabetic ketoacidosis): (3) Polysubstance abuse: (4) Metabolic acidosis: (5) Hypokalemia: Plan Noncompliant type I diabetic DKA Severe acidosis Start bicarb drip Start normal saline Hyperkalemia: Treat with IV insulin Keep patient n.p.o. Admit to ICU Continue metoprolol and lisinopril for hypertension and tachycardia Polysubstance abuse with methamphetamine Patient takes Lantus 35 units along sliding scale DVT prophylaxis heparin Pseudohyponatremia corrected sodium is 135 Attestations Medical Necessity Statement*: Anticipating more than 2 midnights for management of DKA Diagnoses Type 1 diabetes mellitus, uncontrolled DKA (diabetic ketoacidosis) E11.10 Polysubstance abuse F19.10 Metabolic acidosis E87.20 Hypokalemia E87.6
--- NOTE | 2023-07-25 17:05 | W.ED.GENADLT ---
HPI - General Adult General: Chief complaint: General Medical Stated complaint: DKA Source: patient Mode of arrival: ambulatory History of Present Illness: 28-year-old male well-known to our services returns to the emergency room he is a type I diabetic. He was hospitalized 1 week ago for DKA. He states his blood sugars have been getting out of control throughout the day he thought he Missed his insulin last night. He was given 500 normal saline prior to arrival he has had nausea and vomiting throughout the day today. He denies cough dysuria urgency or frequency or or abdominal pain initially has had some cramping as he has been vomiting more and this is progressed. Onset (ago): minute(s) Relieving factors: none Exacerbating factors: none Associated symptoms: Reports confusion, decreased appetite, malaise, nausea and vomiting; Deny chest pain, cough, diaphoresis, dyspnea, fevers/chills, headache(s), rash, palpitations, seizures, short of breath, syncope or weakness Treatments prior to arrival: none Review of Systems Const: Reports: malaise; Denies: diaphoresis Card: Denies: chest pain, palpitations or syncope Resp: Denies: dyspnea GI: Reports: nausea and vomiting : Denies: dysuria, urinary frequency or urinary urgency Musc: Denies: neck pain or back pain Skin/Breast: Denies: rash Neuro: Reports: confusion; Denies: headache(s) [facility] ED PFSH: Medical History Amphetamine abuse Diabetes type 1, uncontrolled History of DKA DKA (diabetic ketoacidosis) History of thyroid nodule right complex nodule, FNA showed benign 03/2022 Hypertension Hyperthyroidism subclinical Long-term insulin use Transaminitis Surgical History No history of previous surgery none known Family History Other Family history unknown Social History Smoking and tobacco/nicotine status: current every day tobacco/nicotine user cigarettes Packs smoked per day: 1 Alcohol intake: former Substance/Drug Use: current Physical Exam Const: EXAM LIMITATIONS: altered mental status GENERAL APPEARANCE: cooperative and comfortable ORIENTATION/CONSCIOUSNESS: Yes awake HENMT: COMMON NORMALS: normocephalic, atraumatic and hearing grossly normal bilaterally HEAD & SCALP: normocephalic and atraumatic Resp: COMMON NORMALS: normal respiratory effort, No retractions, No use of accessory muscles and clear to auscultation bilaterally AUSCULTATION: clear to auscultation bilaterally Cardio: COMMON NORMALS: regular rate, regular rhythm and No murmurs present (Cardio) RATE: regular rate RHYTHM: regular rhythm GI: COMMON NORMALS: No hepatosplenomegaly present AUSCULTATION: Yes normoactive bowel sounds PALPATION: Yes Tenderness to palpation present (GI) (Diffusely tender nonspecific), No Guarding due to palpation present (GI) and Yes No hepatosplenomegaly present Extremity: COMMON NORMALS: normal to inspection, capillary refill normal, no clubbing, cyanosis or edema, no calf tenderness and no pedal edema Skin: COMMON NORMALS: no rashes or lesions noted GENERAL SKIN EXAM: no rashes or lesions noted Course Vital Signs: Vital signs: Vital Signs Pulse Rate 110 H 07/25/23 16:51 Respiratory Rate 34 H 07/25/23 16:51 Blood Pressure 133/94 07/25/23 16:51 Pulse Oximetry 100 07/25/23 16:51 Oxygen Delivery Me thod Room Air 07/25/23 16:51 MDM - General Adult Medical Decision Making Dr. Mosley is at the bedside admit to ICU initial labs and fluid orders started Dr. Mosley will initiate the insulin drip. Medical Records I reviewed the patient's medical records. Lab Data I reviewed the patient's lab results. Laboratory Results POC Glucose > 600 mg/dL (70-110) H* 07/25/23 16:55 XR interpretation done by ED provider, pending radiology final review Discharge Plan Discharge Patient Disposition: Admitted As Inpatient Clinical Impression: DKA (diabetic ketoacidosis), Type 1 diabetes mellitus, uncontrolled Condition: Stable Prescriptions: No Action (DME) blood-glucose meter [OneTouch Ultra2 Meter] Kit See Rx Instructions .Route Qty: 1 0RF Rx Instructions: To use TID to check blood sugar levels before taking insulin (DME) blood sugar diagnostic Strip See Rx Instructions .Route Qty: 300 3RF Rx Instructions: To use TID in onetouch meter to check blood sugar, 90 day supply insulin aspart U-100 [Novolog FlexPen U-100 Insulin] 100 unit/mL (3 mL) insulin pen 10 unit SUBCUT TID Qty: 15 3RF Levemir FlexTouch U100 Insulin 100 unit/mL (3 mL) insulin pen 30 unit SUBCUT QPM Qty: 3 3RF Referrals: Adi Castellon MD [Primary Care Provider] - Coding Level of Care Code ED Property Site Manager for Billg Surendra
[2023-07-25 17:07] LABS: Glucose Point of Care > 600 mg/dL (70-110)
[2023-07-25] MEDS: ondansetron 2 mg/ML SDV 2 mL 4 MG IVP (17:12)
[2023-07-25] MEDS: heparin 5,000 unit/mL INJ 1 mL 5000 UNIT SUBCUT (17:21)
[2023-07-25 17:24] LABS: ABG PH Result 7.02 (7.35-7.45); Arterial Blood Gas Hematocrit 43.4 % (42-52); Base Excess ABG -26.9 mmol/L (-2.0-2.0); Blood Gas Operator Identificat AMH; Blood Gas Sample Site Brachial, right; Blood Gas Sample Type Arterial; Carboxyhemoglobin 1.4 %THgb (0.4-20.1); HGB O2 Sat 97.2 % (95-100); Ionized Calcium Level - ABG 1.2 mmol/L (1.1-1.4); Methemoglobin 0.7 % (0.4-1.5); Oxygen Device ROOM AIR; Oxygen Saturation ABG 99.3; Potassium Level - ABG 6.2 mmol/L (3.5-5.0); Total Hemoglobin 14.2 g/dL (14-18)
[2023-07-25 17:25] LABS: ABG PCO2 7.8 mmHg (35-45)
[2023-07-25] MEDS: sodium bicarbonate 150 MEQ in dextrose 5% 1,000 ML 100 MEQ IV (17:36)
[2023-07-25] MEDS: potassium phosphate (mEq K) 40 MEQ in sodium chloride 0.9% (100 ml) 100 ML 27.27 MEQ IV (17:42)
[2023-07-25 17:48] LABS: Basophils # 0.1 10^3/uL (0.0-0.1); Basophils % 0.9 %; Hematocrit 51.3 % (37-53); Lymphocytes # 1.9 10^3/uL (0.8-4.8); Lymphocytes % 11.9 %; Mean Corpuscular HGB Conc 31.6 g/dL (30-55); Mean Corpuscular Hemoglobin 28.6 pg (27-33); Mean Corpuscular Volume 90.5 fl (82-101); Mean Platelet Volume 12.1 fL (7.4-10.4); Monocytes # 0.7 10^3/uL (0.2-0.9); Monocytes % 4.3 %; Neutrophils # 13.43 10^3/uL (1.8-7.7); Nucleated Red Blood Cells % 0 %; Platelet Count 440 10^3/cmm (157-399); Red Blood Count 5.67 10^6/uL (3.85-5.65); Red Cell Distribution Width 12.3 % (12.1-15.1); White Blood Count 16.35 10^3/uL (3.29-11.43)
--- NOTE | 2023-07-25 17:49 | ECG_ITS ---
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 Measurements Intervals Ong Rate: 111 P: 79 IN: 176 QRS: 62 QRSD: 90 T: 69 QT: 326 QTc: 444 Interpretive Statements SINUS TACHYCARDIA POSSIBLE RIGHT ATRIAL ENLARGEMENT [0.25mV P-WAVE] POSSIBLE LEFT ATRIAL ENLARGEMENT [-0.1mV P-WAVE IN V1/V2] SEPTAL MYOCARDIAL INFARCTION , PROBABLY OLD [40+ ms Q WAVE IN V1/V2] Compared to ECG 06/18/2023 06:25:03 Myocardial infarct finding now present Left-axis deviation no longer present Intraventricular conduction delay no longer present Electronically Signed On 07-25-2023 21:39:56 CDT by Bishnu Dennis M.D. [id number] f
[2023-07-25] MEDS: insulin regular-human 250 UNIT in sodium chloride 0.9% 250 ML 6.57 UNIT IV (17:53)
[2023-07-25 18:04] LABS: Ketone (Acetest) Serum Positive (Negative)
[2023-07-25 18:07] LABS: Alanine Aminotransferase 29 U/L (0-41); Albumin Level 4.8 g/dL (3.5-5.2); Alkaline Phosphatase 195 U/L (40-130); Aspartate Amino Transferase 17 U/L (0-40); Blood Urea Nitrogen 32 mg/dL (6-20); Calcium 9.5 mg/dL (8.5-10.5); Chloride 80 mmol/L (98-107); Creatine Phosphokinase 40 U/L (39-308); Globulin 2.7 g/dL (1.3-4.6); Lipase 14 U/L (13-60); Magnesium 2.8 mg/dL (1.7-2.3); Sodium 124 mmol/L (136-145); Total Bilirubin 0.5 mg/dL (0.15-1.2); Total Protein 7.5 g/dL (6.6-8.7)
[2023-07-25 18:11] LABS: Add Urine Microscopic? NO; Charge for UA Resulting for Rev
[2023-07-25 18:17] LABS: Osmolality Calculated 308 mOsm/kg (285-295)
[2023-07-25 18:22] LABS: Carbon Dioxide 5 mmol/L (22-29); Glucose 867 mg/dL (65-115)
[2023-07-25 18:35] LABS: Bilirubin Urine Neg (Negative); Blood Urine Neg (Negative); Glucose Urine UA 4+ (Normal); Ketones Urine 2+ (Negative); Leukocyte Esterase Urine Negative (Negative); Nitrate Urine Negative (Negative); Protein Urine Neg (Negative); Urine Appearance Clear (CLEAR); Urine Color Yellow (Yellow); Urobilinogen Urine Norm (Negative); pH Urine 5 (5-7)
[2023-07-25 18:46] LABS: Amphetamines Screen Urine Positive (Negative); Barbiturates Screen Urine Negative (Negative); Benzodiazepines Screen Urine Negative (Negative); Cocaine Screen Urine Negative (Negative); Opiate Screen Urine Negative (Negative); PCP Screen Urine Negative (Negative); THC Screen Urine Negative (Negative)
--- NOTE | 2023-07-25 18:46 | PC.NURSE ---
Glucometer unable to read glucose, alarms HI .
[2023-07-25 18:51] LABS: Glucose Point of Care > 600 mg/dL (70-110)
--- NOTE | 2023-07-25 19:10 | PC.NURSE ---
Addendum entered by Israel Farley RN 07/25/23 20:00: This nurse witnessed insulin bolus given and the change of insulin drip. Original Note: Dr. Hartley notified. Patient lab results showed blood glucose to be over 800mg/dl, per protocol bolus given, 0.27N13wp for a 3.4unit bolus given from pump with Israel RODRIGUEZ as witness. Insulin drip increased by 9units per hour per protocol.
[2023-07-25 19:55] LABS: Glucose Point of Care 483 mg/dL (70-110)
--- NOTE | 2023-07-25 20:01 | PC.NURSE ---
Patient's temperature was checked and it was 96.4. Bear hugger was placed on patient.
--- NOTE | 2023-07-25 20:06 | PC.NURSE ---
Patient's BG was 867 by blood draw. Day shift nurse followed protocol and gave bolus and increased insulin drip rate. This nurse checked patient's BG and it was 483. Dr. Hartley was contacted because of significant drop of blood sugar and she ordered to not increase drip and to wait 1 more hour and re check BG.
[2023-07-25 20:14] LABS: Estmated Average Glucose 295; Hemoglobin A1C 11.9 % (4.0-6.0)
[2023-07-25 20:18] LABS: Glucose 666 mg/dL (65-115)
[2023-07-25 21:18] LABS: Glucose Point of Care 314 mg/dL (70-110)
[2023-07-25] MEDS: metoprolol tartrate 25 mg Tablet PO (21:21)
[2023-07-25 22:17] LABS: Glucose Point of Care 281 mg/dL (70-110)
[2023-07-25 22:34] LABS: Anion Gap 30.3 (5-19); Blood Urea Nitrogen 26 mg/dL (6-20); Calcium 7.9 mg/dL (8.5-10.5); Chloride 103 mmol/L (98-107); Creatinine Clr Calc Pharmacy 93.7011; Glomerular Filtration Rate 73.2 mL/min (90-130); Glucose 358 mg/dL (65-115); Osmolality Calculated 303 mOsm/kg (285-295); Potassium 4.3 mmol/L (3.5-5.1); Sodium 137 mmol/L (136-145)
[2023-07-25 22:36] LABS: Carbon Dioxide 8 mmol/L (22-29)
[2023-07-25] MEDS: metoprolol tartrate 25 mg Tablet 12.5 MG PO (22:54)
[2023-07-25 23:19] LABS: Glucose Point of Care 252 mg/dL (70-110)
[2023-07-25] MEDS: dextrose 5%-sod chloride 0.45% 1,000 ML 75 ML IV (23:25)
[2023-07-26] VITALS (50 sets, daily range): BP systolic 105–150; BP diastolic 79–112; PULSE 86–118; RESP 10–23; TEMP 37; O2SAT 87–100
[2023-07-26 00:21] LABS: Glucose Point of Care 175 mg/dL (70-110)
[2023-07-26 01:19] LABS: Glucose Point of Care 159 mg/dL (70-110)
[2023-07-26 02:14] LABS: Glucose Point of Care 173 mg/dL (70-110)
[2023-07-26 02:28] LABS: Anion Gap 15.8 (5-19); Blood Urea Nitrogen 20 mg/dL (6-20); Calcium 7.7 mg/dL (8.5-10.5); Carbon Dioxide 18 mmol/L (22-29); Chloride 106 mmol/L (98-107); Glucose 158 mg/dL (65-115); Osmolality Calculated 288 mOsm/kg (285-295); Potassium 3.8 mmol/L (3.5-5.1); Sodium 136 mmol/L (136-145)
[2023-07-26 03:10] LABS: Glucose Point of Care 158 mg/dL (70-110)
[2023-07-26 04:09] LABS: Glucose Point of Care 158 mg/dL (70-110)
[2023-07-26] MEDS: sodium bicarbonate 150 MEQ in dextrose 5% 1,000 ML 100 MEQ IV (04:46)
[2023-07-26] MEDS: heparin 5,000 unit/mL INJ 1 mL 5000 UNIT SUBCUT (04:48)
[2023-07-26 04:51] LABS: Basophils # 0.1 10^3/uL (0.0-0.1); Basophils % 0.4 %; Hematocrit 39.3 % (37-53); Lymphocytes # 2.6 10^3/uL (0.8-4.8); Lymphocytes % 16.1 %; Mean Corpuscular HGB Conc 33.8 g/dL (30-55); Mean Corpuscular Hemoglobin 29.2 pg (27-33); Mean Corpuscular Volume 86.2 fl (82-101); Mean Platelet Volume 11.6 fL (7.4-10.4); Monocytes % 6.4 %; Neutrophils # 12.11 10^3/uL (1.8-7.7); Neutrophils % 76.5 %; Nucleated Red Blood Cells % 0 %; Platelet Count 236 10^3/cmm (157-399); Red Blood Count 4.56 10^6/uL (3.85-5.65); Red Cell Distribution Width 12.4 % (12.1-15.1); White Blood Count 15.84 10^3/uL (3.29-11.43)
[2023-07-26 05:03] LABS: Anion Gap 14.7 (5-19); Blood Urea Nitrogen 19 mg/dL (6-20); Calcium 7.9 mg/dL (8.5-10.5); Carbon Dioxide 20 mmol/L (22-29); Chloride 106 mmol/L (98-107); Glomerular Filtration Rate 90.3 mL/min (90-130); Glucose 153 mg/dL (65-115); Magnesium 1.9 mg/dL (1.7-2.3); Osmolality Calculated 289 mOsm/kg (285-295); Phosphorus 3.4 mg/dL (2.5-4.5); Potassium 3.7 mmol/L (3.5-5.1); Sodium 137 mmol/L (136-145)
--- NOTE | 2023-07-26 05:42 | P.DS_ITS ---
Discharge Providers Date of Admission: 07/25/23 17:50 Date of Discharge: July 26, 2023 Attending Provider at Admission: Daniel Mosley MD Attending Provider at Discharge: Daniel Mosley MD Primary Care Provider: Adi Castellon MD Diagnoses at Discharge Discharge Diagnosis (1) Type 1 diabetes mellitus, uncontrolled: Status: Acute (2) DKA (diabetic ketoacidosis): Status: Acute (3) Polysubstance abuse: Status: Acute (4) Metabolic acidosis: Status: Acute (5) Hypokalemia: Status: Acute Reason for Visit Reason for Visit: DKA Hospital Course Hospital Course 28-year-old male with history of noncompliance, polysubstance abuse was admitted for management evaluation of severe DKA with metabolic acidosis with use of IV insulin, IV bicarb drip and IV fluids patient's symptoms improved, his anion gap closed, he was given his baseline long-acting insulin 35 units, he is not expe riencing nausea or vomiting, tolerating diet, will continue lisinopril for hypertension and metoprolol for tachycardia. Hemoglobin A1c is around 11. No active source of infection, he did not complain of any chest pain or shortness of breath. Physical Exam Narrative: Pleasant and cooperative GCS 15 S1, S2 Signs of dehydration improving Nonfocal neuro exam Discharge Data Studies Completed and Pending Completed Studies During Hospitalization Category Date Time Status XR chest 1V portable [id number] Stat Exams 07/25/23 17:03 Completed Pending at discharge Category Date Time Status BMP [Basic Metabolic Panel] Q4H Lab 07/26/23 06:00 Ordered BMP [Basic Metabolic Panel] Q4H Lab 07/26/23 10:00 Ordered Blood Culture Stat Lab 07/25/23 18:03 Results Radiology Impressions Chest X-Ray 07/25/23 17:03 IMPRESSION: No acute findings. Laboratory Results WBC 15.84 10^3/uL (3.29-11.43) H 07/26/23 03:57 RBC 4.56 10^6/uL (3.85-5.65) 07/26/23 03:57 Hgb 13.30 g/dL (11.27-16.99) 07/26/23 03:57 Hct 39.3 % (37-53) 07/26/23 03:57 MCV 86.2 fl (82-101) 07/26/23 03:57 MCH 29.2 pg (27-33) 07/26/23 03:57 MCHC 33.8 g/dL (30-55) D 07/26/23 03:57 RDW 12.4 % (12.1-15.1) 07/26/23 03:57 Plt Count 236 10^3/cmm (157-399) D 07/26/23 03:57 MPV 11.6 fL (7.4-10.4) H 07/26/23 03:57 Neut % (Auto) 76.5 % 07/26/23 03:57 Lymph % (Auto) 16.1 % 07/26/23 03:57 [place] % (Auto) 6.4 % 07/26/23 03:57 Eos % (Auto) 0.0 % 07/26/23 03:57 Baso % (Auto) 0.4 % 07/26/23 03:57 Neut # (Auto) 12.11 10^3/uL (1.8-7.7) H 07/26/23 03:57 Lymph # (Auto) 2.6 10^3/uL (0.8-4.8) 07/26/23 03:57 [place] # (Auto) 1.0 10^3/uL (0.2-0.9) H 07/26/23 03:57 Eos # (Auto) 0.0 10^3/uL (0.0-0.8) 07/26/23 03:57 Baso # (Auto) 0.1 10^3/uL (0.0-0.1) 07/26/23 03:57 Nucleated RBC % (auto) 0 % 07/26/23 03:57 Nucleated RBCs # 0.0 /100WBC 07/26/23 03:57 Specimen Type Arterial 07/25/23 17:13 Sample Site Brachial, right 07/25/23 17:13 ABG pH 7.02 (7.35-7.45) L* 07/25/23 17:13 ABG pCO2 7.8 mmHg (35-45) L* 07/25/23 17:13 ABG pO2 145.0 mmHg (80.0-100.0) H 07/25/23 17:13 ABG HCO3 2.0 mmol/L (22-26) L 07/25/23 17:13 ABG O2 Saturation 99.3 07/25/23 17:13 ABG Base Excess -26.9 mmol/L (-2.0-2.0) L 07/25/23 17:13 [place] Test N/a 07/25/23 17:13 A-a O2 Gradient Not Reportable 07/25/23 17:13 Hematocrit 43.4 % (42-52) 07/25/23 17:13 Hgb O2 Saturation 97.2 % (95-100) 07/25/23 17:13 Carboxyhemoglobin 1.4 %THgb (0.4-20.1) 07/25/23 17:13 Methemoglobin 0.7 % (0.4-1.5) 07/25/23 17:13 Total Hemoglobin 14.2 g/dL (14-18) 07/25/23 17:13 Sodium 124.0 mmol/L (131-143) L 07/25/23 17:13 Potassium 6.2 mmol/L (3.5-5.0) H 07/25/23 17:13 Glucose 731.0 mg/dL (70-115) H 07/25/23 17:13 Ionized Calcium 1.2 mmol/L (1.1-1.4) 07/25/23 17:13 O2 Delivery Device Room air 07/25/23 17:13 FiO2 21.0 % 07/25/23 17:13 Child Welfare Counselor ID Amh 07/25/23 17:13 Sodium 137 mmol/L (136-145) 07/26/23 03:57 Potassium 3.7 mmol/L (3.5-5.1) 07/26/23 03:57 Chloride 106 mmol/L (98-107) 07/26/23 03:57 Carbon Dioxide 20 mmol/L (22-29) L 07/26/23 03:57 Anion Gap 14.7 (5-19) 07/26/23 03:57 BUN 19 mg/dL (6-20) 07/26/23 03:57 Creatinine 1.0 mg/dL (0.7-1.2) 07/26/23 03:57 GFR Calculation 90.3 mL/min (90-130) 07/26/23 03:57 Glucose 153 mg/dL (65-115) H 07/26/23 03:57 POC Glucose 158 mg/dL (70-110) H 07/26/23 04:06 Estimat Average Glucose 295 07/25/23 16:44 Hemoglobin A1c 11.9 % (4.0-6.0) H 07/25/23 16:44 Calculated Osmolality 289 mOsm/kg (285-295) 07/26/23 03:57 Calcium 7.9 mg/dL (8.5-10.5) L 07/26/23 03:57 Phosphorus 3.4 mg/dL (2.5-4.5) 07/26/23 03:57 Magnesium 1.9 mg/dL (1.7-2.3) 07/26/23 03:57 Total Bilirubin 0.5 mg/dL (0.15-1.2) 07/25/23 16:44 AST 17 U/L (0-40) 07/25/23 16:44 ALT 29 U/L (0-41) 07/25/23 16:44 Alkaline Phosphatase 195 U/L (40-130) H 07/25/23 16:44 Creatine Kinase 40 U/L (39-308) 07/25/23 16:44 C-Reactive Protein 3.0 mg/L (0.0-4.9) 07/26/23 03:57 Total Protein 7.5 g/dL (6.6-8.7) 07/25/23 16:44 Albumin 4.8 g/dL (3.5-5.2) 07/25/23 16:44 Globulin 2.7 g/dL (1.3-4.6) 07/25/23 16:44 Lipase 14 U/L (13-60) 07/25/23 16:44 Urine Color Yellow (Yellow) 07/25/23 17:39 Urine Appearance Clear (CLEAR) 07/25/23 17:39 Urine pH 5 (5-7) 07/25/23 17:39 Ur Specific [place] 1.020 (1.005-1.030) 07/25/23 17:39 Urine Protein Neg (Negative) 07/25/23 17:39 Urine Glucose (UA) 4+ (Normal) H 07/25/23 17:39 Urine Ketones 2+ (Negative) H 07/25/23 17:39 Urine Blood Neg (Negative) 07/25/23 17:39 Urine Nitrate Negative (Negative) 07/25/23 17:39 Urine Bilirubin Neg (Negative) 07/25/23 17:39 Urine Urobilinogen Norm mg/dL (Negative) 07/25/23 17:39 Ur Leukocyte Esterase Negative (Negative) 07/25/23 17:39 Urine Opiates Screen Negative ng/mL (Negative) 07/25/23 17:39 Ur Barbiturates Screen Negative ng/mL (Negative) 07/25/23 17:39 Ur Phencyclidine Scrn Negative ng/mL (Negative) 07/25/23 17:39 Ur Amphetamines Screen Positive ng/mL (Negative) H 07/25/23 17:39 U Benzodiazepines Scrn Negative ng/mL (Negative) 07/25/23 17:39 Urine Cocaine Screen Negative ng/mL (Negative) 07/25/23 17:39 U Marijuana (THC) Screen Negative ng/mL (Negative) 07/25/23 17:39 Serum Ketones Positive (Negative) H 07/25/23 16:44 Vitals Last Vital Signs Temp 98.6 F 07/26/23 01:00 Pulse 91 07/26/23 05:30 Resp 13 07/26/23 05:30 BP 130/95 07/26/23 05:30 Pulse Ox 100 07/26/23 05:30 O2 Del Method Room Air 07/26/23 05:30 Discharge Plan Discharge Patient Disposition: Home Condition: Stable Prescriptions: New metoprolol tartrate 25 mg Tablet 25 mg PO BID@0900,2100 Qty: 60 0RF lisinopril 10 mg Tablet 10 mg PO DAILY Qty: 60 0RF Continued (DME) blood-glucose meter [OneTouch Ultra2 Meter] Kit See Rx Instructions .Route Qty: 1 0RF Rx Instructions: To use TID to check blood sugar levels before taking insulin (DME) blood sugar diagnostic Strip See Rx Instructions .Route Qty: 300 3RF Rx Instructions: To use TID in onetouch meter to check blood sugar, 90 day supply insulin aspart U-100 [Novolog FlexPen U-100 Insulin] 100 unit/mL (3 mL) insulin pen 10 unit SUBCUT TID Qty: 15 3RF Levemir FlexPen 100 unit/mL (3 mL) insulin pen 30 unit SUBCUT QPM Discharge Orders: Discharge Order (Routine); Ordered 07/26/23 Ordered By: Daniel Mosley Referrals: [facility] Behavioral Health Care [Other] (?Follow up as a walk in at [facility], walk in hours are Saturday-Saturday from 7:30AM-3:00PM, first come, first seen. Once you do this assessment you will be referred for appropriate services.) Crisis Stabilization [Other] Adi Castellon MD [Primary Care Provider] - Discharge Diet: Diabetic Discharge Activity: Increase activity as tolerated Patient Instructions: Opioid Safety Discharge Attestations Time Spent in Discharge Care*: greater than 30 min Status at Discharge: Cognitive status at discharge: cognitively intact , Behavioral status at discharge: cooperative , Quality Metrics Clinical Quality Measures [ No reported AMI, CVA or VTE this stay] Coding Level of Care Code Acute Code for Chg Fwd Diagnoses Type 1 diabetes mellitus, uncontrolled DKA (diabetic ketoacidosis) E11.10 Polysubstance abuse F19.10 Metabolic acidosis E87.20 Hypokalemia E87.6
[2023-07-26] MEDS: insulin glargine 100 units/1 mL 35 UNIT SUBCUT (05:43)
--- NOTE | 2023-07-26 05:47 | PC.NURSE ---
Dr. Hartley notified that patient's anion gap was closed, his HCO3 is 20 and BG is 150. Orders were given to start insulin Lantus 35 units for his bedtime and Humalog at medium sliding scale for meals and bedtime. Insulin drip to be stopped 2 hours after insulin Lantus was given per protocol.
[2023-07-26 06:16] LABS: Anion Gap 13.7 (5-19); Blood Urea Nitrogen 19 mg/dL (6-20); Carbon Dioxide 21 mmol/L (22-29); Chloride 106 mmol/L (98-107); Glucose 158 mg/dL (65-115); Osmolality Calculated 290 mOsm/kg (285-295); Potassium 3.7 mmol/L (3.5-5.1); Sodium 137 mmol/L (136-145)
[2023-07-26 07:40] LABS: Glucose Point of Care 126 mg/dL (70-110)
--- NOTE | 2023-07-26 07:46 | PC.PHAR ---
unable to verify medications with pt-medications entered are what ext med history shows has been filled recently-
[2023-07-26] MEDS: metoprolol tartrate 25 mg Tablet PO (08:39)
[2023-07-26] MEDS: lisinopril 10 mg Tablet PO (08:40)
[2023-07-26 10:14] LABS: Anion Gap 17.8 (5-19); Blood Urea Nitrogen 18 mg/dL (6-20); Carbon Dioxide 20 mmol/L (22-29); Chloride 99 mmol/L (98-107); Glomerular Filtration Rate 116.9 mL/min (90-130); Glucose 300 mg/dL (65-115); Osmolality Calculated 289 mOsm/kg (285-295); Potassium 3.8 mmol/L (3.5-5.1); Sodium 133 mmol/L (136-145)
[2023-07-26 12:30] LABS: Glucose Point of Care 314 mg/dL (70-110)
[2023-07-26] MEDS: insulin lispro 100 unit/1 mL SUBCUT (12:30)
--- NOTE | 2023-07-26 12:31 | PC.NURSE ---
Patient received discharge orders. All IVs removed. All prescriptions filled with main pharmacy and delivered to patient bedside. Patient verbalized understanding of discharge instructions. Patient awaiting ride in room
== END 2023-07-26 13:25 | disposition home or self-care (01) | DRG 639 ==
LOC: ER 17:12 → ICU 17:50
PROVIDERS: Admitting Provider Internal Medicine; Emergency Provider Family Medicine; PCP Family Medicine; Visit Provider Internal Medicine
DX: E10.10 Type 1 diabetes mellitus with ketoacidosis without coma (principal); T38.3X6A Underdosing of insulin and oral hypoglycemic [antidiabetic] drugs, initial encounter; Z91.128 Patient's intentional underdosing of medication regimen for other reason; F15.10 Other stimulant abuse, uncomplicated; I10 Essential (primary) hypertension; R00.0 Tachycardia, unspecified; E05.90 Thyrotoxicosis, unspecified without thyrotoxic crisis or storm; F17.210 Nicotine dependence, cigarettes, uncomplicated; E86.0 Dehydration; E87.6 Hypokalemia
CPT/HCPCS: 36415; 36416; 36600; 71045; 80048; 80051; 80053; 80306; 81003; 82009; 82330; 82550; 82805; 82947; 82962; 83036; 83690; 83735; 84100; 85025; 86140; 87040; 93005; 96365; 96367; 96368; 96372; 96375; 96376; 99291; 99292; J1644; J1815; J2405; J7030; J7050; J7070; J7799

== ENCOUNTER 2023-09-05 01:06 | Inpatient (IN) | payer MEDICAID, SELFPAY ==
[2023-09-05] VITALS (28 sets, daily range): BP systolic 93–130; BP diastolic 60–79; PULSE 91–134; RESP 14–26; TEMP 36.2–37; O2SAT 97–100; BMI 18.6; BMI 18.9
--- NOTE | 2023-09-05 01:14 | ECG_ITS ---
[facility] Test Date: 2023-09-05 Pat Name: Jean Miller Department: Room: [facility] Gender: Male [employer] Super[employer]: : 1995 Requested By: Michael Braun Order Number: [id number] Remy MD: Shannan Das M.D. Measurements Intervals [place] Rate: 234 P: 0 UT: 0 QRS: 28 QRSD: 172 T: 0 QT: 163 QTc: 322 Interpretive Statements Sinus tachycardia Q waves in the septal leads, old septal infarct Nonspecific ST changes with the peaked T waves, suggestive of possible hyperkalemia. Compared to last EKG on 07/25/2023, no significant change Electronically Signed On 09-05-2023 12:47:23 [employer] by Shannan Das M.D. [id number]
[2023-09-05 01:30] LABS: Basophils # 0.2 10^3/uL (0.0-0.1); Basophils % 0.6 %; Hematocrit 50.5 % (37-53); Lymphocytes # 1.9 10^3/uL (0.8-4.8); Mean Corpuscular HGB Conc 30.3 g/dL (30-55); Mean Corpuscular Hemoglobin 28.6 pg (27-33); Mean Corpuscular Volume 94.4 fl (82-101); Mean Platelet Volume 11.5 fL (7.4-10.4); Monocytes # 1.5 10^3/uL (0.2-0.9); Monocytes % 5.3 %; Neutrophils # 23.68 10^3/uL (1.8-7.7); Neutrophils % 85.4 %; Nucleated Red Blood Cells % 0 %; Platelet Count 404 10^3/cmm (157-399); Red Blood Count 5.35 10^6/uL (3.85-5.65); Red Cell Distribution Width 13.2 % (12.1-15.1); White Blood Count 27.75 10^3/uL (3.29-11.43)
--- NOTE | 2023-09-05 01:31 | W.ED.GENADLT ---
HPI - General Adult General: Chief complaint: General Medical Stated complaint: hyperglycemia Time Seen by Provider: 09/05/23 01:12 History of Present Illness: Patient presents to the ER via EMS with high blood sugar. Patient reports that his Dexcom kept going off EMS reports that they got the fingerstick at 573. Patient complains of nausea vomiting x 1 day. Patient is a type I noncompliant diabetic who has been in DKA multiple times. Fingerstick at time of arrival to the ER just reads high. Review of Systems General: Reports: 10 or more systems reviewed and unremarkable except in HPI and below PFSH ED PFSH: Medical History Amphetamine abuse Diabetes type 1, uncontrolled History of DKA DKA (diabetic ketoacidosis) DKA (diabetic ketoacidosis) History of thyroid nodule right complex nodule, FNA showed benign 03/2022 Hypertension Hyperthyroidism subclinical Hypokalemia Long-term insulin use Metabolic acidosis Polysubstance abuse Transaminitis Type 1 diabetes mellitus, uncontrolled Surgical History No history of previous surgery none known Family History Other Family history unknown Social History Smoking and tobacco/nicotine status: current every day tobacco/nicotine user cigarettes Packs smoked per day: 1 Alcohol intake: former Substance/Drug Use: current Physical Exam Const: COMMON NORMALS: no acute distress, average body habitus, patient oriented x3, no limitations, healthy appearing, alert and well nourished HENMT: COMMON NORMALS: normocephalic, atraumatic, hearing grossly normal bilaterally, external ears normal, Normal external nose present, moist oral mucous membranes and oropharynx normal HEAD & SCALP: normocephalic and atraumatic NOSE: Normal external nose present EXTERNAL EAR: Yes external ears normal Neck/C-Spine: COMMON NORMALS: no JVD Chest: COMMONS NORMALS: normal inspection of the chest and normal palpation of entire chest wall Resp: COMMON NORMALS: normal respiratory effort, No retractions, No use of accessory muscles and clear to auscultation bilaterally AUSCULTATION: clear to auscultation bilaterally Cardio: COMMON NORMALS: no JVD, regular rhythm, S1 normal heart sound present, S2 normal heart sound present, No gallops present (Cardio), No clicks present (Cardio), No murmurs present (Cardio) and No rub (Cardio); negative for regular rate (Tachycardic) RATE: abnormal rate (Tachycardic) RHYTHM: regular rhythm HEART SOUNDS: S1 normal heart sound present and S2 normal heart sound present GI: COMMON NORMALS: Normal to inspection, nondistended, normoactive bowel sounds present, Soft to palpation, No hepatosplenomegaly present and no masses; negative for non-tender (Diffusely mildly tender) PALPATION: Yes Soft to palpation and Yes No hepatosplenomegaly present Neuro: COMMON NORMALS: patient oriented x3 SENSORIUM/ORIENTATION: Yes alert Course Vital Signs: Vital signs: Vital Signs Temperature 97.2 F L 09/05/23 01:07 Pulse Rate 134 H 09/05/23 03:55 Respiratory Rate 18 09/05/23 03:55 Blood Pressure 101/78 09/05/23 03:55 Pulse Oximetry 100 09/05/23 03:55 Oxygen Delivery Me thod Room Air 09/05/23 01:07 MDM - General Adult Medical Decision Making Patient refuses ABG. Patient is white count is 27,000 his sodium is 119 potassium 6.7 EKG shows a uncertain irregular rhythm, his blood sugar was 1359 he does have serum ketones he was given 9 units of insulin IV push and started on an insulin drip as well as 1 g calcium gluconate. He has been bolused 2 L normal saline. Discussed the patient with Dr. Mosley who agreed to accept the patient to the ICU. Dr. Mosley wanted him on a bicarb drip. Differential Diagnosis DKA, diabetes, hyperglycemia Medical Records I reviewed the patient's medical records. Lab Data I reviewed the patient's lab results. 09/05/23 01:27 09/05/23 01:27 Laboratory Results WBC 27.75 10^3/uL (3.29-11.43) H 09/05/23 01:27 RBC 5.35 10^6/uL (3.85-5.65) 09/05/23 01:27 Hgb 15.30 g/dL (11.27-16.99) 09/05/23 01:27 Hct 50.5 % (37-53) 09/05/23 01:27 MCV 94.4 fl (82-101) 09/05/23 01:27 MCH 28.6 pg (27-33) 09/05/23 01:27 MCHC 30.3 g/dL (30-55) 09/05/23 01:27 RDW 13.2 % (12.1-15.1) 09/05/23 01:27 Plt Count 404 10^3/cmm (157-399) H 09/05/23 01:27 MPV 11.5 fL (7.4-10.4) H 09/05/23 01:27 Neut % (Auto) 85.4 % 09/05/23 01:27 Lymph % (Auto) 7.0 % 09/05/23 01:27 [place] % (Auto) 5.3 % 09/05/23 01:27 Eos % (Auto) 0.0 % 09/05/23 01:27 Baso % (Auto) 0.6 % 09/05/23 01:27 Neut # (Auto) 23.68 10^3/uL (1.8-7.7) H 09/05/23 01:27 Lymph # (Auto) 1.9 10^3/uL (0.8-4.8) 09/05/23 01:27 [place] # (Auto) 1.5 10^3/uL (0.2-0.9) H 09/05/23 01:27 Eos # (Auto) 0.0 10^3/uL (0.0-0.8) 09/05/23 01:27 Baso # (Auto) 0.2 10^3/uL (0.0-0.1) H 09/05/23 01:27 Nucleated RBC % (auto) 0 % 09/05/23 01:27 Nucleated RBCs # 0.0 /100WBC 09/05/23 01:27 Sodium 119 mmol/L (136-145) L* 09/05/23 01:27 Potassium 6.7 mmol/L (3.5-5.1) H* 09/05/23 01:27 Chloride 67 mmol/L (98-107) L 09/05/23 01:27 Carbon Dioxide 7 mmol/L (22-29) L* 09/05/23 01:27 Anion Gap 51.7 (5-19) H 09/05/23 01:27 BUN 46 mg/dL (6-20) H 09/05/23 01:27 Creatinine 3.2 mg/dL (0.7-1.2) H 09/05/23 01:27 GFR Calculation 23.6 mL/min (90-130) L 09/05/23 01:27 Glucose 1359 mg/dL (65-115) H* 09/05/23 01:27 Calculated Osmolality 330 mOsm/kg (285-295) H 09/05/23 01:27 Calcium 9.2 mg/dL (8.5-10.5) 09/05/23 01:27 Magnesium 2.7 mg/dL (1.7-2.3) H 09/05/23 01:27 Total Bilirubin 0.6 mg/dL (0.15-1.2) 09/05/23 01:27 AST 13 U/L (0-40) 09/05/23 01:27 ALT 21 U/L (0-41) 09/05/23 01:27 Alkaline Phosphatase 183 U/L (40-130) H 09/05/23 01:27 Total Protein 7.3 g/dL (6.6-8.7) 09/05/23 01:27 Albumin 4.6 g/dL (3.5-5.2) 09/05/23 01:27 Globulin 2.7 g/dL (1.3-4.6) 09/05/23 01:27 Lipase 14 U/L (13-60) 09/05/23 01:27 Serum Ketones Positive (Negative) H 09/05/23 01:27 All radiology interpretation(s) finalized by discharge EKG Data EKG 1: I personally reviewed and interpreted this EKG as follows: EKG interpretation date: 09/05/23 EKG interpretation time: 01:51 Prior EKG tracings: available for review Interpretation: EKG shows uncertain irregular rhythm, intraventricular conduction delay, abnormal Discharge Plan Discharge Patient Disposition: Admitted As Inpatient Clinical Impression: Acute hyperkalemia DKA (diabetic ketoacidosis) Qualifiers: Diabetes mellitus type: type 1 Diabetes mellitus complication detail: without coma Qualified Code(s): E10.10 - Type 1 diabetes mellitus with ketoacidosis without coma Acute renal failure Qualifiers: Acute renal failure type: unspecified Qualified Code(s): N17.9 - Acute kidney failure, unspecified Condition: Stable Coding Level of Care Code ED Needle Punch Machine Operator Helper for Jazmín Agosto
[2023-09-05] MEDS: sodium chloride 0.9% 1,000 ML 999 ML IV ×2 (01:38→02:02)
[2023-09-05 01:57] LABS: Ketone (Acetest) Serum Positive (Negative)
[2023-09-05 02:02] LABS: Alanine Aminotransferase 21 U/L (0-41); Albumin Level 4.6 g/dL (3.5-5.2); Alkaline Phosphatase 183 U/L (40-130); Aspartate Amino Transferase 13 U/L (0-40); Blood Urea Nitrogen 46 mg/dL (6-20); Calcium 9.2 mg/dL (8.5-10.5); Chloride 67 mmol/L (98-107); Globulin 2.7 g/dL (1.3-4.6); Glomerular Filtration Rate 23.6 mL/min (90-130); Lipase 14 U/L (13-60); Magnesium 2.7 mg/dL (1.7-2.3); Total Bilirubin 0.6 mg/dL (0.15-1.2); Total Protein 7.3 g/dL (6.6-8.7)
[2023-09-05 02:11] LABS: Osmolality Calculated 330 mOsm/kg (285-295)
[2023-09-05 02:20] LABS: Anion Gap 51.7 (5-19)
[2023-09-05 02:21] LABS: Carbon Dioxide 7 mmol/L (22-29); Glucose 1359 mg/dL (65-115); Potassium 6.7 mmol/L (3.5-5.1); Sodium 119 mmol/L (136-145)
[2023-09-05] MEDS: insulin regular-human 100 units/1 mL 9 UNIT IVP (02:42)
[2023-09-05] MEDS: calcium gluconate 0.1 gm/mL 10% SDV 10mL 1 GM IVP (02:58)
[2023-09-05] MEDS: insulin regular-human 250 UNIT in sodium chloride 0.9% 250 ML 39.36 UNIT IV (03:19)
[2023-09-05 04:32] LABS: Add Urine Microscopic? NO; Charge for UA Resulting for Rev
[2023-09-05 04:39] LABS: Bilirubin Urine Neg (Negative); Blood Urine Neg (Negative); Glucose Urine UA 4+ (Normal); Ketones Urine 2+ (Negative); Leukocyte Esterase Urine Negative (Negative); Nitrate Urine Negative (Negative); Protein Urine Neg (Negative); Specific Gravity, Urine 1.015 (1.005-1.030); Urine Appearance Clear (CLEAR); Urine Color Colorless (Yellow); Urobilinogen Urine Norm (Negative); pH Urine 5 (5-7)
[2023-09-05 04:42] LABS: Amphetamines Screen Urine Positive (Negative); Barbiturates Screen Urine Negative (Negative); Benzodiazepines Screen Urine Negative (Negative); Cocaine Screen Urine Negative (Negative); Opiate Screen Urine Negative (Negative); PCP Screen Urine Negative (Negative); THC Screen Urine Negative (Negative)
[2023-09-05 04:43] LABS: Glucose Point of Care > 600 mg/dL (70-110)
[2023-09-05 04:43] LABS: Glucose Point of Care > 600 mg/dL (70-110)
--- NOTE | 2023-09-05 05:25 | PC.NURSE ---
Call placed to Dr. Mosley regarding Insulin infusion. Insulin infusion changed from a rate of 38.97 to 6U/hr based upon the new insulin protocol that is weight based. Stat phosphorus and magnesium blood levels ordered.
[2023-09-05 05:32] LABS: Blood Urea Nitrogen 42 mg/dL (6-20); Calcium 8.8 mg/dL (8.5-10.5); Chloride 92 mmol/L (98-107); Glomerular Filtration Rate 28.7 mL/min (90-130); Osmolality Calculated 320 mOsm/kg (285-295); Sodium 134 mmol/L (136-145)
[2023-09-05 05:34] LABS: Carbon Dioxide 9 mmol/L (22-29)
--- NOTE | 2023-09-05 05:34 | PC.NURSE ---
Bicarb infusion not available at this time.
[2023-09-05 05:35] LABS: Anion Gap 36.8 (5-19); Potassium 3.8 mmol/L (3.5-5.1)
--- NOTE | 2023-09-05 05:35 | PC.NURSE ---
Unable to complete admission assessment as patient is ignorig questions, opens eyes and recloses them. Several attempts to engage patient into admission assessmnt without success. Patientt does follow commands such as squeezing my hand or moving his feet.
[2023-09-05 05:37] LABS: Glucose 667 mg/dL (65-115)
[2023-09-05 05:42] LABS: Magnesium 2.3 mg/dL (1.7-2.3); Phosphorus 5.3 mg/dL (2.5-4.5)
--- NOTE | 2023-09-05 05:45 | PC.NURSE ---
Call placed to Dr. Mosley regarding patient's blood glucose is 66. Per Wt based protocol increase insulin gtt to 15U/hr with a 3 U bolus and to contact the physician.
--- NOTE | 2023-09-05 06:24 | PC.NURSE ---
Msg to hospitalist regarding patient's drop in blood glucose from 667 to 474 in one hour. Insulin gtt reduced by 50% to 7.5 U/hr.
[2023-09-05 07:04] LABS: Glucose Point of Care > 600 mg/dL (70-110)
[2023-09-05 07:04] LABS: Glucose Point of Care 349 mg/dL (70-110)
[2023-09-05 07:04] LABS: Glucose Point of Care 474 mg/dL (70-110)
--- NOTE | 2023-09-05 07:09 | PM.HP ---
Providers/Chief Complaint Admitting Physician: Daniel Mosley MD Primary Care Provider: Adi Castellon MD Chief Complaint: Hyper History of Present Illness Jean Miller is a 28 year old male with history of noncompliance, which are related to DKA presented with chief complaint of hyperglycemia, patient is stating that his Dexcom kept going off and history most of sugar was above 500 he has been experiencing recurrent nausea vomiting for last couple days. He has not noticed fever, confusion, signs and symptoms related to UTI, productive cough, chest pain. His bicarb is only 9 with severe metabolic acidosis, bicarb drip was started with D5 Review of Systems Const: Denies: fever(s) Eyes: Denies: change in vision ENMT: Denies: throat pain Card: Denies: chest pain Resp: Denies: dyspnea GI: Reports: abdominal pain, nausea and vomiting : Denies: flank pain Medications/Allergies Home Medications Medication Instructions Recorded Confirmed Last Taken Type blood-glucose meter (OneTouch #1 ea 04/02/22 07/26/23 Unknown Rx Ultra2 Meter kit) blood sugar diagnostic #300 ea 05/12/22 07/26/23 Unknown Rx insulin aspart U-100 100 unit/mL 10 unit (0.1 mL) SUBCUT TID #15 mL 03/12/23 07/26/23 Unknown Rx (3 mL) subcutaneous pen (Novolog FlexPen U-100 Insulin aspart) insulin detemir U-100 100 unit/mL 30 unit SUBCUT QPM 07/26/23 07/26/23 Unknown History (3 mL) subcutaneous pen (Levemir FlexPen) lisinopril 10 mg tablet 10 mg PO DAILY #60 tabs 07/26/23 Unknown Rx metoprolol tartrate 25 mg tablet 25 mg PO BID@0900,2100 #60 tabs 07/26/23 Unknown Rx Allergies Allergy/AdvReac Type Severity Reaction Status Date / Time No Known Allergies Allergy Verified 07/25/23 16:55 PFSH Acute PFSH: Medical History (Updated 09/05/23 @ 07:13 by Daniel Mosley MD) Amphetamine abuse Diabetes type 1, uncontrolled History of DKA DKA (diabetic ketoacidosis) DKA (diabetic ketoacidosis) History of thyroid nodule right complex nodule, FNA showed benign 03/2022 Hypertension Hyperthyroidism subclinical Hypokalemia Long-term insulin use Metabolic acidosis Polysubstance abuse Transaminitis Type 1 diabetes mellitus, uncontrolled Surgical History No history of previous surgery none known Family History Other Family history unknown Social History Smoking and tobacco/nicotine status: current every day tobacco/nicotine user cigarettes Packs smoked per day: 1 Alcohol intake: former Substance/Drug Use: current Vitals/I&O/Wt Last Vital Signs Temp 98.6 F 09/05/23 05:00 Pulse 132 H 09/05/23 06:45 Resp 20 H 09/05/23 06:45 BP 106/66 09/05/23 06:45 Pulse Ox 99 09/05/23 06:45 O2 Del Method Room Air 09/05/23 04:45 09/04/23 09/05/23 09/05/23 22:59 06:59 14:59 Intake Total 2085.882 / 2085.882 Balance 2085.882 / 2085.882 Weight last 48 hrs Weight 61.348 kg Weight 61.371 kg Weight 58.967 kg Physical Exam Narrative: male GCS 15 Fatigue lethargic Abdomen soft Nonfocal neuro exam Pleasant and cooperative Currently on room air S1, S2 tachycardia Data 09/05/23 01:27 09/05/23 04:50 A&P Assessment and plan (1) DKA (diabetic ketoacidosis): Qualifiers: Diabetes mellitus complication detail: without coma Diabetes mellitus type: type 1 Qualified Code(s): E10.10 - Type 1 diabetes mellitus with ketoacidosis without coma (2) Acute hyperkalemia: (3) Acute renal failure: Qualifiers: Acute renal failure type: unspecified Qualified Code(s): N17.9 - Acute kidney failure, unspecified (4) Hyperthyroidism: (5) Metabolic acidosis: (6) Polysubstance abuse: Plan Methamphetamine positive DKA Noncompliant Severe leukocytosis No active signs of fever No active chest pain Start DKA protocol We will repeat once anion gap closes Takes 30 to 35 units of Lantus Hemoglobin A1c 11.9 Full code Admit to ICU Severe metabolic acidosis we will start patient on bicarb drip with D5 Pseudohyponatremia related to hyperglycemia Attestations Medical Necessity Statement*: More than 2 midnights anticipated for severe DKA Diagnoses DKA (diabetic ketoacidosis) E10.10 Diabetes mellitus complication detail: without coma Diabetes mellitus type: type 1 Acute hyperkalemia E87.5 Acute renal failure N17.9 Acute renal failure type: unspecified Hyperthyroidism E05.90 Metabolic acidosis E87.20 Polysubstance abuse F19.10
[2023-09-05] MEDS: sodium chlor 0.9% + KCl 40 mEq 40 MEQ/1,000 ML BAG 100 MEQ IV (07:47)
[2023-09-05] MEDS: potassium chloride ER 20 mEq Tablet 40 MEQ PO (07:59)
[2023-09-05] MEDS: metoprolol tartrate 25 mg Tablet PO ×2 (08:12→20:18)
[2023-09-05] MEDS: sennosides-docusate Tablet 1 TAB PO (08:12)
[2023-09-05 08:17] LABS: Glucose Point of Care 290 mg/dL (70-110)
[2023-09-05 08:20] LABS: Procalcitonin 3.97 ng/mL (0-0.5)
[2023-09-05 09:14] LABS: Glucose Point of Care 245 mg/dL (70-110)
[2023-09-05 09:23] LABS: Anion Gap 19.9 (5-19); Blood Urea Nitrogen 40 mg/dL (6-20); Calcium 8.8 mg/dL (8.5-10.5); Carbon Dioxide 21 mmol/L (22-29); Chloride 98 mmol/L (98-107); Glomerular Filtration Rate 43.1 mL/min (90-130); Glucose 270 mg/dL (65-115); Osmolality Calculated 299 mOsm/kg (285-295); Potassium 3.9 mmol/L (3.5-5.1); Sodium 135 mmol/L (136-145)
[2023-09-05] MEDS: dextrose 5% 1,000 ML 125 ML IV (09:44)
[2023-09-05 10:10] LABS: Glucose Point of Care 205 mg/dL (70-110)
[2023-09-05 11:04] LABS: Glucose Point of Care 227 mg/dL (70-110)
[2023-09-05 12:21] LABS: Glucose Point of Care 210 mg/dL (70-110)
--- NOTE | 2023-09-05 12:58 | PM.MISC ---
Miscellaneous Note Note: Seen today. Agree with assessment plan by admitting physician. Continue management as listed in H&P.
[2023-09-05 13:25] LABS: Glucose Point of Care 206 mg/dL (70-110)
[2023-09-05 14:16] LABS: Blood Urea Nitrogen 35 mg/dL (6-20); Calcium 8.2 mg/dL (8.5-10.5); Carbon Dioxide 26 mmol/L (22-29); Chloride 99 mmol/L (98-107); Glomerular Filtration Rate 61.3 mL/min (90-130); Glucose 226 mg/dL (65-115); Osmolality Calculated 293 mOsm/kg (285-295); Sodium 134 mmol/L (136-145)
--- NOTE | 2023-09-05 14:18 | XRR_ITS ---
PROCEDURE INFORMATION: Exam: XR Chest Exam date and time: 09/05/2023 3:31 PM Age: 28 years old Clinical indication: Shortness of breath; Additional info: R/O pneumonia TECHNIQUE: Imaging protocol: Radiologic exam of the chest. Views: 1 view. COMPARISON: CR XR chest 1V portable [id number] 07/25/2023 5:37 PM FINDINGS: Lungs: Unremarkable. No consolidation. Pleural spaces: Unremarkable. No pleural effusion. No pneumothorax. Heart/Mediastinum: Unremarkable. No cardiomegaly. Bones/joints: Unremarkable. XR/XR chest 1V portable [id number] IMPRESSION: No acute findings.
[2023-09-05 14:23] LABS: Glucose Point of Care 188 mg/dL (70-110)
[2023-09-05] MEDS: dextrose 5%-sod chloride 0.9% 1,000 ML 150 ML IV (14:35)
[2023-09-05] MEDS: piperacillin-tazobactam 3.375 GM in sodium chloride 0.9% (plus) 50 ML IV (14:37)
[2023-09-05 15:03] LABS: Anion Gap 13.6 (5-19); Potassium 4.6 mmol/L (3.5-5.1)
[2023-09-05 15:38] LABS: Glucose Point of Care 216 mg/dL (70-110)
[2023-09-05] MEDS: insulin glargine 100 units/1 mL 30 UNIT SUBCUT (16:21)
[2023-09-05 16:25] LABS: Glucose Point of Care 205 mg/dL (70-110)
[2023-09-05] MEDS: insulin lispro 100 unit/1 mL SUBCUT ×2 (16:25→20:18)
[2023-09-05 17:09] LABS: Glucose Point of Care 219 mg/dL (70-110)
[2023-09-05 18:20] LABS: Glucose Point of Care 193 mg/dL (70-110)
[2023-09-05] MEDS: sodium chloride 0.9% 1,000 ML 125 ML IV (18:21)
[2023-09-05 18:57] LABS: Blood Urea Nitrogen 30 mg/dL (6-20); Calcium 8.2 mg/dL (8.5-10.5); Carbon Dioxide 23 mmol/L (22-29); Chloride 99 mmol/L (98-107); Glomerular Filtration Rate 66.7 mL/min (90-130); Glucose 218 mg/dL (65-115); Osmolality Calculated 291 mOsm/kg (285-295); Sodium 134 mmol/L (136-145)
[2023-09-05 19:42] LABS: Glucose Point of Care 236 mg/dL (70-110)
[2023-09-05 22:33] LABS: Anion Gap 13.6 (5-19); Blood Urea Nitrogen 25 mg/dL (6-20); Calcium 8.3 mg/dL (8.5-10.5); Carbon Dioxide 25 mmol/L (22-29); Chloride 101 mmol/L (98-107); Glomerular Filtration Rate 80.9 mL/min (90-130); Glucose 210 mg/dL (65-115); Osmolality Calculated 293 mOsm/kg (285-295); Potassium 3.6 mmol/L (3.5-5.1); Sodium 136 mmol/L (136-145)
[2023-09-05 23:39] LABS: Glucose Point of Care 126 mg/dL (70-110)
[2023-09-06] VITALS (55 sets, daily range): BP systolic 118–153; BP diastolic 75–106; PULSE 83–98; RESP 10–25; TEMP 36.6–36.9; O2SAT 94–100
[2023-09-06] MEDS: piperacillin-tazobactam 3.375 GM in sodium chloride 0.9% (plus) 50 ML IV ×4 (00:28→23:26)
[2023-09-06] MEDS: sodium chloride 0.9% 1,000 ML 125 ML IV ×2 (00:56→10:04)
[2023-09-06 01:03] LABS: Glucose Point of Care 103 mg/dL (70-110)
[2023-09-06 02:01] LABS: Glucose Point of Care 100 mg/dL (70-110)
[2023-09-06 03:12] LABS: Glucose Point of Care 97 mg/dL (70-110)
[2023-09-06 04:14] LABS: Glucose Point of Care 89 mg/dL (70-110)
[2023-09-06 05:06] LABS: Glucose Point of Care 155 mg/dL (70-110)
[2023-09-06 05:52] LABS: Basophils # 0.1 10^3/uL (0.0-0.1); Basophils % 0.5 %; Eosinophils % 0.2 %; Hematocrit 36.3 % (37-53); Lymphocytes # 2.7 10^3/uL (0.8-4.8); Lymphocytes % 17.6 %; Mean Corpuscular HGB Conc 32.8 g/dL (30-55); Mean Corpuscular Hemoglobin 28.4 pg (27-33); Mean Corpuscular Volume 86.6 fl (82-101); Mean Platelet Volume 10.3 fL (7.4-10.4); Monocytes % 6.2 %; Neutrophils # 11.54 10^3/uL (1.8-7.7); Neutrophils % 75.1 %; Nucleated Red Blood Cells % 0 %; Platelet Count 288 10^3/cmm (157-399); Red Blood Count 4.19 10^6/uL (3.85-5.65); Red Cell Distribution Width 14.2 % (12.1-15.1); White Blood Count 15.37 10^3/uL (3.29-11.43)
[2023-09-06 06:14] LABS: Glucose Point of Care 171 mg/dL (70-110)
[2023-09-06 06:21] LABS: Anion Gap 12.7 (5-19); Blood Urea Nitrogen 21 mg/dL (6-20); C Reactive Protein 9.6 mg/L (0.0-4.9); Calcium 8.4 mg/dL (8.5-10.5); Carbon Dioxide 26 mmol/L (22-29); Chloride 103 mmol/L (98-107); Glucose 167 mg/dL (65-115); Osmolality Calculated 293 mOsm/kg (285-295); Potassium 3.7 mmol/L (3.5-5.1); Sodium 138 mmol/L (136-145)
[2023-09-06 07:10] LABS: Glucose Point of Care 219 mg/dL (70-110)
--- NOTE | 2023-09-06 08:36 | PC.PHAR ---
PT VERIFIED MEDS BUT UNABLE TO TELL ME WHEN LAST TAKEN. 09/06/23
[2023-09-06] MEDS: metoprolol tartrate 25 mg Tablet PO ×2 (09:02→20:06)
[2023-09-06] MEDS: sennosides-docusate Tablet 1 TAB PO (09:02)
[2023-09-06] MEDS: insulin lispro 100 unit/1 mL SUBCUT ×4 (09:10→20:07)
[2023-09-06 10:23] LABS: Anion Gap 10.8 (5-19); Blood Urea Nitrogen 16 mg/dL (6-20); Carbon Dioxide 22 mmol/L (22-29); Chloride 101 mmol/L (98-107); Glomerular Filtration Rate 116.9 mL/min (90-130); Glucose 286 mg/dL (65-115); Osmolality Calculated 282 mOsm/kg (285-295); Potassium 3.8 mmol/L (3.5-5.1); Sodium 130 mmol/L (136-145)
[2023-09-06 11:23] LABS: Glucose Point of Care 246 mg/dL (70-110)
--- NOTE | 2023-09-06 13:10 | PM.PN ---
Subjective Subjective: seen this am pt states he is tired and sleepy BG better controlled he is off insulin diet restarted yesterday AG 13 Vitals/I&O/Wt Last Vital Signs Temp 98.4 F 09/06/23 01:58 Pulse 93 09/06/23 12:45 Resp 15 09/06/23 12:45 BP 144/105 09/06/23 12:45 Pulse Ox 99 09/06/23 12:45 O2 Del Method Room Air 09/06/23 08:00 09/05/23 09/06/23 09/06/23 22:59 06:59 14:59 Intake Total 1331.355 / 3379.758 1352.917 / 4732.675 1480 / 1480 Output Total 950 / 950 850 / 1800 850 / 850 Balance 381.355 / 2429.758 502.917 / 2932.675 630 / 630 Weight last 48 hrs Weight 65 kg Weight 59.874 kg Weight 61.348 kg Weight 61.371 kg Weight 58.967 kg Physical Exam Narrative: General exam no distress Neck is supple Cardiovascular regular rate and rhythm without murmur Lungs clear to ausculation Abdomen is soft with positive bowel sounds Extremities no cyanosis clubbing or edema Data 09/06/23 04:55 09/06/23 13:55 Micro: Microbiology 09/05/23 15:35 Urine Culture - Preliminary Urine,Voided 09/05/23 14:42 Blood Culture - Preliminary Blood SPECIMEN COLLECTED 09/05/23 14:40 Blood Culture - Preliminary Blood SPECIMEN COLLECTED A&P Assessment and plan (1) DKA (diabetic ketoacidosis): Qualifiers: Diabetes mellitus complication detail: without coma Diabetes mellitus type: type 1 Qualified Code(s): E10.10 - Type 1 diabetes mellitus with ketoacidosis without coma (2) Acute hyperkalemia: (3) Acute renal failure: Qualifiers: Acute renal failure type: unspecified Qualified Code(s): N17.9 - Acute kidney failure, unspecified (4) Hyperthyroidism: (5) Metabolic acidosis: (6) Polysubstance abuse: Plan Methamphetamine positive DKA - resolved Noncompliant Diabetes Mellitus HTN Severe HAGMA - resolved Pseudohyponatremia 2/2 hyperglycemia - resolved MICHAEL - resolved Severe leukocytosis No active signs of fever No active chest pain s/p insulin gtt. has been bridged to lantus continue ns 100 cc/hr restart lisinopril 10 daily check blood cultures, urine culture xr chest reviewed, no pna lantus 35 units daily, mod dose intensity SSI Hemoglobin A1c 11.9 Pro brea elevated at admission Cover empirically with zosyn Full code May transfer to floor Plan to DC in AM Attestations Medical Necessity Statement*: plan for dc in am. Diagnoses DKA (diabetic ketoacidosis) E10.10 Diabetes mellitus complication detail: without coma Diabetes mellitus type: type 1 Acute hyperkalemia E87.5 Acute renal failure N17.9 Acute renal failure type: unspecified Hyperthyroidism E05.90 Metabolic acidosis E87.20 Polysubstance abuse F19.10
[2023-09-06 14:56] LABS: Anion Gap 14.7 (5-19); Blood Urea Nitrogen 14 mg/dL (6-20); Calcium 8.4 mg/dL (8.5-10.5); Carbon Dioxide 26 mmol/L (22-29); Chloride 99 mmol/L (98-107); Glomerular Filtration Rate 90.3 mL/min (90-130); Glucose 212 mg/dL (65-115); Osmolality Calculated 289 mOsm/kg (285-295); Potassium 3.7 mmol/L (3.5-5.1); Sodium 136 mmol/L (136-145)
[2023-09-06 16:45] LABS: Glucose Point of Care 249 mg/dL (70-110)
[2023-09-06] MEDS: lisinopril 10 mg Tablet PO (17:22)
[2023-09-06] MEDS: insulin glargine 100 units/1 mL 35 UNIT SUBCUT (17:24)
[2023-09-06] MEDS: sodium chloride 0.9% 1,000 ML 100 ML IV (17:24)
[2023-09-06 20:05] LABS: Glucose Point of Care 141 mg/dL (70-110)
--- NOTE | 2023-09-06 20:57 | PC.NURSE ---
Called report to Augusta SALINAS. Patient transfered to room 251-2 with all belongings and patients chart. Patient settled in bed and updated Augusta on patients blood sugar.
[2023-09-06 22:36] LABS: Glucose Point of Care 59 mg/dL (70-110)
[2023-09-07 00:05] LABS: Glucose Point of Care 86 mg/dL (70-110)
[2023-09-07] MEDS: sodium chloride 0.9% 1,000 ML 100 ML IV (04:10)
[2023-09-07 05:02] LABS: Basophils % 0.5 %; Eosinophils # 0.1 10^3/uL (0.0-0.8); Eosinophils % 0.7 %; Hematocrit 37.5 % (37-53); Lymphocytes # 1.9 10^3/uL (0.8-4.8); Lymphocytes % 22.6 %; Mean Corpuscular HGB Conc 31.5 g/dL (30-55); Mean Corpuscular Volume 89.1 fl (82-101); Mean Platelet Volume 10.8 fL (7.4-10.4); Monocytes # 0.8 10^3/uL (0.2-0.9); Monocytes % 9.1 %; Neutrophils # 5.64 10^3/uL (1.8-7.7); Neutrophils % 66.9 %; Nucleated Red Blood Cells % 0 %; Platelet Count 248 10^3/cmm (157-399); Red Blood Count 4.21 10^6/uL (3.85-5.65); Red Cell Distribution Width 13.7 % (12.1-15.1); White Blood Count 8.44 10^3/uL (3.29-11.43)
[2023-09-07 05:27] LABS: Anion Gap 11.3 (5-19); Blood Urea Nitrogen 8 mg/dL (6-20); Calcium 8.2 mg/dL (8.5-10.5); Carbon Dioxide 26 mmol/L (22-29); Chloride 103 mmol/L (98-107); Glomerular Filtration Rate 162.9 mL/min (90-130); Glucose 103 mg/dL (65-115); Magnesium 1.9 mg/dL (1.7-2.3); Osmolality Calculated 283 mOsm/kg (285-295); Potassium 3.3 mmol/L (3.5-5.1); Sodium 137 mmol/L (136-145)
[2023-09-07 05:29] VITALS: BP 122/100; BP 152/102; PULSE 85; RESP 15; TEMP 36.8; O2SAT 98
[2023-09-07 05:41] LABS: Glucose Point of Care 104 mg/dL (70-110)
[2023-09-07 06:00] VITALS: PULSE 78
[2023-09-07 07:34] LABS: Glucose Point of Care 154 mg/dL (70-110)
[2023-09-07 07:37] VITALS: BP 141/97; PULSE 80; RESP 16; TEMP 36.8; O2SAT 99
[2023-09-07 07:55] VITALS: PULSE 82; RESP 16; O2SAT 97
[2023-09-07] MEDS: potassium chloride ER 20 mEq Tablet 40 MEQ PO (08:32)
[2023-09-07] MEDS: metoprolol tartrate 25 mg Tablet PO (08:32)
[2023-09-07] MEDS: pantoprazole DR 40 mg Tablet PO (08:32)
[2023-09-07] MEDS: lisinopril 10 mg Tablet PO (08:32)
[2023-09-07] MEDS: piperacillin-tazobactam 3.375 GM in sodium chloride 0.9% (plus) 50 ML IV (08:33)
[2023-09-07] MEDS: insulin lispro 100 unit/1 mL SUBCUT (08:33)
[2023-09-07 10:58] LABS: Glucose Point of Care 132 mg/dL (70-110)
[2023-09-07 11:59] VITALS: BP 128/85; PULSE 83; RESP 18; TEMP 36.6; O2SAT 97
--- NOTE | 2023-09-07 12:59 | PM.DCS ---
Discharge Providers Date of Admission: 09/05/23 04:22 Date of Discharge: September 07, 2023 Attending Provider at Admission: Daniel Mosley MD Attending Provider at Discharge: Leila Morales MD Primary Care Provider: Adi Castellon MD Diagnoses at Discharge Discharge Diagnosis (1) DKA (diabetic ketoacidosis): Status: Acute Qualifiers: Diabetes mellitus complication detail: without coma Diabetes mellitus type: type 1 Qualified Code(s): E10.10 - Type 1 diabetes mellitus with ketoacidosis without coma (2) Acute hyperkalemia: Status: Acute (3) Acute renal failure: Status: Acute Qualifiers: Acute renal failure type: unspecified Qualified Code(s): N17.9 - Acute kidney failure, unspecified (4) Hyperthyroidism: Status: Chronic Permanent problem details: subclinical (5) Metabolic acidosis: Status: Acute (6) Polysubstance abuse: Status: Acute Reason for Visit Reason for Visit: Hyper Hospital Course Hospital Course Patient admitted for DKA was managed in ICU and then transferred to floor the next day. He was bridged to [facility]. He was supposed to be discharged today however did not wait for discharge orders and left without signing AMA paperwork or notifying anybody. I did see him this morning and told him he will be discharged. I will send Augmentin for him to pharmacy for 5 days. He told me he did not need any other scripts at this time. Physical Exam Narrative: General exam no distress Neck is supple Cardiovascular regular rate and rhythm without murmur Lungs clear to ausculation Abdomen is soft with positive bowel sounds Extremities no cyanosis clubbing or edema Discharge Data Studies Completed and Pending Completed Studies During Hospitalization Category Date Time Status XR chest 1V portable [id number] Urgent Exams 09/05/23 14:18 Completed Pending at discharge Category Date Time Status Blood Culture Stat Lab 09/05/23 14:42 Results Sputum Culture and Gram Stain Stat Lab 09/05/23 14:18 Uncollected Radiology Impressions Chest X-Ray 09/05/23 14:18 IMPRESSION: No acute findings. Laboratory Results WBC 8.44 10^3/uL (3.29-11.43) 09/07/23 03:58 RBC 4.21 10^6/uL (3.85-5.65) 09/07/23 03:58 Hgb 11.80 g/dL (11.27-16.99) 09/07/23 03:58 Hct 37.5 % (37-53) 09/07/23 03:58 MCV 89.1 fl (82-101) 09/07/23 03:58 MCH 28.0 pg (27-33) 09/07/23 03:58 MCHC 31.5 g/dL (30-55) 09/07/23 03:58 RDW 13.7 % (12.1-15.1) 09/07/23 03:58 Plt Count 248 10^3/cmm (157-399) 09/07/23 03:58 MPV 10.8 fL (7.4-10.4) H 09/07/23 03:58 Neut % (Auto) 66.9 % 09/07/23 03:58 Lymph % (Auto) 22.6 % 09/07/23 03:58 [place] % (Auto) 9.1 % 09/07/23 03:58 Eos % (Auto) 0.7 % 09/07/23 03:58 Baso % (Auto) 0.5 % 09/07/23 03:58 Neut # (Auto) 5.64 10^3/uL (1.8-7.7) 09/07/23 03:58 Lymph # (Auto) 1.9 10^3/uL (0.8-4.8) 09/07/23 03:58 [place] # (Auto) 0.8 10^3/uL (0.2-0.9) 09/07/23 03:58 Eos # (Auto) 0.1 10^3/uL (0.0-0.8) 09/07/23 03:58 Baso # (Auto) 0.0 10^3/uL (0.0-0.1) 09/07/23 03:58 Nucleated RBC % (auto) 0 % 09/07/23 03:58 Nucleated RBCs # 0.0 /100WBC 09/07/23 03:58 Sodium 137 mmol/L (136-145) 09/07/23 03:58 Potassium 3.3 mmol/L (3.5-5.1) L 09/07/23 03:58 Chloride 103 mmol/L (98-107) 09/07/23 03:58 Carbon Dioxide 26 mmol/L (22-29) 09/07/23 03:58 Anion Gap 11.3 (5-19) 09/07/23 03:58 BUN 8 mg/dL (6-20) 09/07/23 03:58 Creatinine 0.6 mg/dL (0.7-1.2) L 09/07/23 03:58 GFR Calculation 162.9 mL/min (90-130) H 09/07/23 03:58 Glucose 103 mg/dL (65-115) 09/07/23 03:58 POC Glucose 132 mg/dL (70-110) H 09/07/23 10:46 Calculated Osmolality 283 mOsm/kg (285-295) L 09/07/23 03:58 Calcium 8.2 mg/dL (8.5-10.5) L 09/07/23 03:58 Phosphorus 5.3 mg/dL (2.5-4.5) H 09/05/23 04:50 Magnesium 1.9 mg/dL (1.7-2.3) 09/07/23 03:58 Total Bilirubin 0.6 mg/dL (0.15-1.2) 09/05/23 01:27 AST 13 U/L (0-40) 09/05/23 01:27 ALT 21 U/L (0-41) 09/05/23 01:27 Alkaline Phosphatase 183 U/L (40-130) H 09/05/23 01:27 C-Reactive Protein 9.6 mg/L (0.0-4.9) H 09/06/23 04:55 Total Protein 7.3 g/dL (6.6-8.7) 09/05/23 01:27 Albumin 4.6 g/dL (3.5-5.2) 09/05/23 01:27 Globulin 2.7 g/dL (1.3-4.6) 09/05/23 01:27 Lipase 14 U/L (13-60) 09/05/23 01:27 Procalcitonin 3.97 ng/mL (0-0.5) H 09/05/23 04:50 Urine Color Colorless (Yellow) 09/05/23 04:28 Urine Appearance Clear (CLEAR) 09/05/23 04:28 Urine pH 5 (5-7) 09/05/23 04:28 Ur Specific [place] 1.015 (1.005-1.030) 09/05/23 04:28 Urine Protein Neg (Negative) 09/05/23 04:28 Urine Glucose (UA) 4+ (Normal) H 09/05/23 04:28 Urine Ketones 2+ (Negative) H 09/05/23 04:28 Urine Blood Neg (Negative) 09/05/23 04:28 Urine Nitrate Negative (Negative) 09/05/23 04:28 Urine Bilirubin Neg (Negative) 09/05/23 04:28 Urine Urobilinogen Norm mg/dL (Negative) 09/05/23 04:28 Ur Leukocyte Esterase Negative (Negative) 09/05/23 04:28 Urine Opiates Screen Negative ng/mL (Negative) 09/05/23 04:28 Ur Barbiturates Screen Negative ng/mL (Negative) 09/05/23 04:28 Ur Phencyclidine Scrn Negative ng/mL (Negative) 09/05/23 04:28 Ur Amphetamines Screen Positive ng/mL (Negative) H 09/05/23 04:28 U Benzodiazepines Scrn Negative ng/mL (Negative) 09/05/23 04:28 Urine Cocaine Screen Negative ng/mL (Negative) 09/05/23 04:28 U Marijuana (THC) Screen Negative ng/mL (Negative) 09/05/23 04:28 Serum Ketones Positive (Negative) H 09/05/23 01:27 Vitals Last Vital Signs Temp 97.9 F 09/07/23 11:59 Pulse 83 09/07/23 11:59 Resp 18 09/07/23 11:59 BP 128/85 09/07/23 11:59 Pulse Ox 97 09/07/23 11:59 O2 Del Method Room Air 09/07/23 11:59 Discharge Plan Discharge Patient Disposition: Left Against Medical Advice Condition: Stable Prescriptions: New amoxicillin-pot clavulanate 875-125 mg tablet 1 tab PO BID 5 Days Qty: 10 0RF Continued (DME) blood-glucose meter [OneTouch Ultra2 Meter] Kit See Rx Instructions .Route Qty: 1 0RF Rx Instructions: To use TID to check blood sugar levels before taking insulin (DME) blood sugar diagnostic Strip See Rx Instructions .Route Qty: 300 3RF Rx Instructions: To use TID in onetouch meter to check blood sugar, 90 day supply insulin aspart U-100 [Novolog FlexPen U-100 Insulin] 100 unit/mL (3 mL) insulin pen 10 unit SUBCUT TID Qty: 15 3RF Levemir FlexPen 100 unit/mL (3 mL) insulin pen 30 unit SUBCUT QPM lisinopril 10 mg Tablet 10 mg PO DAILY Qty: 60 0RF metoprolol tartrate 25 mg Tablet 25 mg PO BID@0900,2100 Qty: 60 0RF pantoprazole 40 mg tablet,delayed release (DR/EC) 40 mg PO DAILY Referrals: [facility] [Other] (7 days/week 8am-6pm) [facility] [Outside] (?Follow up as a walk in at [facility], walk in hours are Saturday-Saturday from 7:30AM-3:00PM, first come, first seen. Once you do this assessment you will be referred for appropriate services.) Adi Castellon MD [Primary Care Provider] - Discharge Attestations Time Spent in Discharge Care*: less than 30 min Status at Discharge: Cognitive status at discharge: cognitively intact, Behavioral status at discharge: cooperative, Quality Metrics Clinical Quality Measures [ No reported AMI, CVA or VTE this stay] Coding Level of Care Code Acute Code for Chg Fwd Diagnoses DKA (diabetic ketoacidosis) E10.10 Diabetes mellitus complication detail: without coma Diabetes mellitus type: type 1 Acute hyperkalemia E87.5 Acute renal failure N17.9 Acute renal failure type: unspecified Hyperthyroidism E05.90 Metabolic acidosis E87.20 Polysubstance abuse F19.10
--- NOTE | 2023-09-07 13:14 | PC.NURSE ---
pt left AMA. Dr. Morales notified.
== END 2023-09-07 12:30 | disposition left against medical advice (07) | DRG 638 ==
LOC: ER 01:33 → ICU 04:22 → MEDSURG 09-06 20:33
PROVIDERS: Admitting Provider Internal Medicine; Emergency Provider Emergency Medicine; PCP Family Medicine; Visit Provider Internal Medicine
DX: E10.10 Type 1 diabetes mellitus with ketoacidosis without coma (principal); N17.9 Acute kidney failure, unspecified; Z79.4 Long term (current) use of insulin; Z91.199 Patient's noncompliance with other medical treatment and regimen due to unspecified reason; F15.10 Other stimulant abuse, uncomplicated; I10 Essential (primary) hypertension; E05.90 Thyrotoxicosis, unspecified without thyrotoxic crisis or storm; F17.210 Nicotine dependence, cigarettes, uncomplicated; E87.5 Hyperkalemia; E86.0 Dehydration
CPT/HCPCS: 36415; 36416; 71045; 80048; 80053; 80306; 81003; 82009; 82962; 83690; 83735; 84100; 84145; 85025; 86140; 87040; 87086; 93005; 93010; 96365; 96367; 96372; 96375; 96376; 99285; J0612; J1815; J2543; J7030; J7042; J7050; J7070

== ENCOUNTER 2023-12-01 03:49 | Inpatient (IN) | payer MEDICAID, SELFPAY ==
[2023-12-01] VITALS (99 sets, daily range): BP systolic 96–168; BP diastolic 61–105; PULSE 91–123; RESP 12–33; TEMP 36.4–37.1; O2SAT 71–100
--- NOTE | 2023-12-01 03:54 | W.ED.GENADLT ---
HPI - General Adult General: Chief complaint: Recheck/Abnormal Lab/Rx Stated complaint: High BG Time Seen by Provider: 12/01/23 03:51 Source: patient Mode of arrival: ambulatory Limitations: no limitations History of Present Illness: 28-year-old male type I diabetic case been in DKA in the past states he started having vomiting tonight his blood sugars been running high at home is high with EMS as well he is tachycardic and tachypneic. He denies any fevers denies any worsening proving factors. States he has been using his insulin. Associated symptoms: Reports nausea and vomiting; Deny chest pain, dyspnea, headache(s) or rash Review of Systems Const: Denies: fever(s), chills, body aches or change in appetite ENMT: Denies: throat pain or dental pain Card: Denies: chest pain Resp: Denies: dyspnea GI: Reports: nausea and vomiting; Denies: abdominal pain or diarrhea : Denies: dysuria Musc: Denies: neck pain or back pain Skin/Breast: Denies: rash Neuro: Denies: headache(s) PFSH ED PFSH: Medical History Hypokalemia Metabolic acidosis Polysubstance abuse DKA (diabetic ketoacidosis) Type 1 diabetes mellitus, uncontrolled DKA (diabetic ketoacidosis) History of thyroid nodule right complex nodule, FNA showed benign 03/2022 Transaminitis Hypertension Hyperthyroidism subclinical Amphetamine abuse Long-term insulin use Diabetes type 1, uncontrolled History of DKA Surgical History No history of previous surgery none known Family History Other Family history unknown Social History Smoking and tobacco/nicotine status: current every day tobacco/nicotine user cigarettes Packs smoked per day: 1 Alcohol intake: former Substance/Drug Use: current Physical Exam Const: COMMON NORMALS: patient oriented x3 GENERAL APPEARANCE: ill appearing HENMT: COMMON NORMALS: normocephalic and atraumatic HEAD & SCALP: normocephalic and atraumatic Eye: COMMON NORMALS: Equal, round and reactive pupils present and EOMs intact bilaterally PUPIL: Yes Equal, round and reactive pupils present Neck/C-Spine: COMMON NORMALS: full ROM and supple Chest: COMMONS NORMALS: normal inspection of the chest Resp: COMMON NORMALS: normal respiratory effort, No retractions, No use of accessory muscles and clear to auscultation bilaterally EFFORT & INSPECTION: Yes tachypneic AUSCULTATION: clear to auscultation bilaterally Cardio: COMMON NORMALS: regular rhythm and No murmurs present (Cardio) RATE: tachycardic RHYTHM: regular rhythm GI: COMMON NORMALS: Normal to inspection, nondistended, normoactive bowel sounds present, Soft to palpation, non-tender and no masses PALPATION: Yes Soft to palpation Extremity: COMMON NORMALS: normal to inspection and full ROM Neuro: COMMON NORMALS: patient oriented x3, moves all extremities and no focal motor deficits Psych: COMMON NORMALS: mental status grossly normal, Normal thought process present and cooperative THOUGHT PROCESS: Normal thought process present Skin: COMMON NORMALS: no rashes or lesions noted and no wounds GENERAL SKIN EXAM: no rashes or lesions noted Course Vital Signs: Vital signs: Vital Signs Temperature 98 F 12/01/23 03:51 Pulse Rate 114 H 12/01/23 04:20 Respiratory Rate 20 H 12/01/23 04:20 Blood Pressure 126/87 12/01/23 04:20 Pulse Oximetry 100 12/01/23 04:20 Oxygen Delivery Me thod Room Air 12/01/23 03:51 MDM - General Adult Medical Decision Making Patient presents for DKA patient was started on insulin drip I spoke to the hospitalist will admit to the ICU Medical Records I reviewed the patient's medical records. Lab Data I reviewed the patient's lab results. 12/01/23 03:40 12/01/23 03:40 Laboratory Results WBC 26.31 10^3/uL (3.29-11.43) H 12/01/23 03:40 RBC 5.72 10^6/uL (3.85-5.65) H 12/01/23 03:40 Hgb 15.50 g/dL (11.27-16.99) 12/01/23 03:40 Hct 48.6 % (37-53) 12/01/23 03:40 MCV 85.0 fl (82-101) 12/01/23 03:40 MCH 27.1 pg (27-33) 12/01/23 03:40 MCHC 31.9 g/dL (30-55) 12/01/23 03:40 RDW 12.8 % (12.1-15.1) 12/01/23 03:40 Plt Count 378 10^3/cmm (157-399) 12/01/23 03:40 MPV 12.3 fL (7.4-10.4) H 12/01/23 03:40 Neut % (Auto) 87.6 % 12/01/23 03:40 Lymph % (Auto) 5.7 % 12/01/23 03:40 [place] % (Auto) 5.8 % 12/01/23 03:40 Eos % (Auto) 0.0 % 12/01/23 03:40 Baso % (Auto) 0.4 % 12/01/23 03:40 Neut # (Auto) 23.05 10^3/uL (1.8-7.7) H 12/01/23 03:40 Lymph # (Auto) 1.5 10^3/uL (0.8-4.8) 12/01/23 03:40 [place] # (Auto) 1.5 10^3/uL (0.2-0.9) H 12/01/23 03:40 Eos # (Auto) 0.0 10^3/uL (0.0-0.8) 12/01/23 03:40 Baso # (Auto) 0.1 10^3/uL (0.0-0.1) 12/01/23 03:40 Nucleated RBC % (auto) 0 % 12/01/23 03:40 Nucleated RBCs # 0.0 /100WBC 12/01/23 03:40 Specimen Type Arterial 12/01/23 04:06 Sample Site Brachial, right 12/01/23 04:06 ABG pH 7.13 (7.35-7.45) L* 12/01/23 04:06 ABG pCO2 10.7 mmHg (35-45) L* 12/01/23 04:06 ABG pO2 148.0 mmHg (80.0-100.0) H 12/01/23 04:06 ABG HCO3 3.6 mmol/L (22-26) L 12/01/23 04:06 ABG Base Excess -23.0 mmol/L (-2.0-2.0) L 12/01/23 04:06 [place] Test N/a 12/01/23 04:06 Hematocrit 43.8 % (42-52) 12/01/23 04:06 O2 Delivery Device Room air 12/01/23 04:06 Supervisor Metalizing ID [email or web address] 12/01/23 04:06 Sodium 125 mmol/L (136-145) L 12/01/23 03:40 Potassium 5.3 mmol/L (3.5-5.1) H 12/01/23 03:40 Chloride 80 mmol/L (98-107) L 12/01/23 03:40 Carbon Dioxide 6 mmol/L (22-29) L* 12/01/23 03:40 Anion Gap 44.3 (5-19) H 12/01/23 03:40 BUN 32 mg/dL (6-20) H 12/01/23 03:40 Creatinine 1.8 mg/dL (0.7-1.2) H 12/01/23 03:40 GFR Calculation 45.8 mL/min (90-130) L 12/01/23 03:40 Glucose 784 mg/dL (65-115) H* 12/01/23 03:40 POC Glucose > 600 mg/dL (70-110) H* 12/01/23 04:18 Calculated Osmolality 305 mOsm/kg (285-295) H 12/01/23 03:40 Calcium 9.0 mg/dL (8.5-10.5) 12/01/23 03:40 Phosphorus 7.4 mg/dL (2.5-4.5) H 12/01/23 03:40 Magnesium 2.6 mg/dL (1.7-2.3) H 12/01/23 03:40 Total Bilirubin 0.4 mg/dL (0.15-1.2) 12/01/23 03:40 AST 10 U/L (0-40) 12/01/23 03:40 ALT 11 U/L (0-41) 12/01/23 03:40 Alkaline Phosphatase 133 U/L (40-130) H 12/01/23 03:40 Total Protein 6.8 g/dL (6.6-8.7) 12/01/23 03:40 Albumin 4.2 g/dL (3.5-5.2) 12/01/23 03:40 Globulin 2.6 g/dL (1.3-4.6) 12/01/23 03:40 Serum Ketones Positive (Negative) H 12/01/23 03:40 All radiology interpretation(s) finalized by discharge Critical Care Time Critical Care Time: Critical Care Time: Yes Total Critical Care Time: 40 Attestation: The high probability of a clinically significant, sudden or life threatening deterioration of the patient's endocrine system(s) required my full and direct attention, intervention and personal management. The critical care time is as shown. This time is in addition to time spent performing any reported procedures but includes the following: [x] Data and vital sign review and interpretation [x] Patient assessment, examination and intervention [x] Documentation [x] Medication orders and management Discharge Plan Discharge Patient Disposition: Admitted As Inpatient Clinical Impression: DKA, type 1 Condition: Stable Prescriptions: No Action (DME) blood-glucose meter [OneTouch Ultra2 Meter] Kit See Rx Instructions .Route Qty: 1 0RF Rx Instructions: To use TID to check blood sugar levels before taking insulin (DME) blood sugar diagnostic Strip See Rx Instructions .Route Qty: 300 3RF Rx Instructions: To use TID in onetouch meter to check blood sugar, 90 day supply insulin aspart U-100 [Novolog FlexPen U-100 Insulin] 100 unit/mL (3 mL) insulin pen 10 unit SUBCUT TID Qty: 15 3RF Levemir FlexPen 100 unit/mL (3 mL) insulin pen 30 unit SUBCUT QPM lisinopril 10 mg Tablet 10 mg PO DAILY Qty: 60 0RF metoprolol tartrate 25 mg Tablet 25 mg PO BID@0900,2100 Qty: 60 0RF pantoprazole 40 mg tablet,delayed release (DR/EC) 40 mg PO DAILY Referrals: Adi Castellon MD [Primary Care Provider] - Coding Level of Care Code ED Medical Record Librarians Teacher for Jazmín Agosto
[2023-12-01 04:03] LABS: Basophils # 0.1 10^3/uL (0.0-0.1); Basophils % 0.4 %; Hematocrit 48.6 % (37-53); Lymphocytes # 1.5 10^3/uL (0.8-4.8); Lymphocytes % 5.7 %; Mean Corpuscular HGB Conc 31.9 g/dL (30-55); Mean Corpuscular Hemoglobin 27.1 pg (27-33); Mean Platelet Volume 12.3 fL (7.4-10.4); Monocytes # 1.5 10^3/uL (0.2-0.9); Monocytes % 5.8 %; Neutrophils # 23.05 10^3/uL (1.8-7.7); Neutrophils % 87.6 %; Nucleated Red Blood Cells % 0 %; Platelet Count 378 10^3/cmm (157-399); Red Blood Count 5.72 10^6/uL (3.85-5.65); Red Cell Distribution Width 12.8 % (12.1-15.1); White Blood Count 26.31 10^3/uL (3.29-11.43)
[2023-12-01] MEDS: sodium chloride 0.9% 1,000 ML 999 ML IV (04:12)
[2023-12-01] MEDS: ondansetron 2 mg/ML SDV 2 mL 4 MG IVP ×3 (04:13→20:28)
[2023-12-01 04:14] LABS: Ketone (Acetest) Serum Positive (Negative)
[2023-12-01 04:18] LABS: Arterial Blood Gas Hematocrit 43.8 % (42-52); Blood Gas Sample Site Brachial, right; Blood Gas Sample Type Arterial; HCO3 ABG 3.6 mmol/L (22-26); Oxygen Device ROOM AIR
[2023-12-01 04:19] LABS: ABG PCO2 10.7 mmHg (35-45); ABG PH Result 7.13 (7.35-7.45)
[2023-12-01 04:20] LABS: Glucose Point of Care > 600 mg/dL (70-110)
[2023-12-01 04:21] LABS: Alanine Aminotransferase 11 U/L (0-41); Albumin Level 4.2 g/dL (3.5-5.2); Alkaline Phosphatase 133 U/L (40-130); Anion Gap 44.3 (5-19); Aspartate Amino Transferase 10 U/L (0-40); Blood Urea Nitrogen 32 mg/dL (6-20); Chloride 80 mmol/L (98-107); Globulin 2.6 g/dL (1.3-4.6); Glomerular Filtration Rate 45.8 mL/min (90-130); Magnesium 2.6 mg/dL (1.7-2.3); Phosphorus 7.4 mg/dL (2.5-4.5); Potassium 5.3 mmol/L (3.5-5.1); Sodium 125 mmol/L (136-145); Total Bilirubin 0.4 mg/dL (0.15-1.2); Total Protein 6.8 g/dL (6.6-8.7)
[2023-12-01 04:31] LABS: Osmolality Calculated 305 mOsm/kg (285-295)
[2023-12-01 04:33] LABS: Carbon Dioxide 6 mmol/L (22-29); Glucose 784 mg/dL (65-115)
--- NOTE | 2023-12-01 05:12 | P.HP_ITS ---
Providers/Chief Complaint 2 Primary Care Provider: Adi Castellon MD Chief Complaint: High BG History of Present Illness 28-year-old gentleman with DM1 reports normally takes 30 units of long-acting insulin at night as well as sliding scale short acting insulin with meals, states that he has been taking his insulin except perhaps in not quite as he is supposed in the last 2 days. With history of substance use disorder, denies any substance use. Presents to the ER with nausea, vomiting, malaise, dry mouth, hyperglycemia. In ER with sinus tachycardia, leukocytosis, severe hyperglycemia, anion gap metabolic acidosis, MICHAEL, positive serum ketones. Review of Systems 2 Const: Reports: malaise; Denies: fever(s), chills or body aches ENMT: Denies: throat pain Card: Denies: chest pain, edema, pre-syncope or dyspnea on exertion Resp: Denies: dyspnea, productive cough, change in phlegm color or hemoptysis GI: Reports: nausea and vomiting; Denies: abdominal pain, diarrhea, constipation, hematochezia or melena : Denies: flank pain, difficulty urinating, urinary frequency or hematuria Musc: Denies: back pain, joint swelling or joint redness Skin/Breast: Denies: rash or new lesions Neuro: Denies: headache(s), numbness in extremities, weakness in extremities, dizziness, confusion or seizure-like activity Endo: Reports: polydipsia Medications/Allergies Home Medications Medication Instructions Recorded Confirmed Last Taken Type blood-glucose meter (OneTouch #1 ea 04/02/22 09/06/23 Unknown Rx Ultra2 Meter kit) blood sugar diagnostic #300 ea 05/12/22 09/06/23 Unknown Rx insulin aspart U-100 100 unit/mL 10 unit (0.1 mL) SUBCUT TID #15 mL 03/12/23 09/06/23 Unknown Rx (3 mL) subcutaneous pen (Novolog FlexPen U-100 Insulin aspart) insulin detemir U-100 100 unit/mL 30 unit SUBCUT QPM 07/26/23 09/06/23 Unknown History (3 mL) subcutaneous pen (Levemir FlexPen) lisinopril 10 mg tablet 10 mg PO DAILY #60 tabs 07/26/23 09/06/23 Unknown Rx metoprolol tartrate 25 mg tablet 25 mg PO BID@0900,2100 #60 tabs 07/26/23 09/06/23 Unknown Rx pantoprazole 40 mg tablet,delayed 40 mg PO DAILY 09/06/23 09/06/23 Unknown History release Allergies Allergy/AdvReac Type Severity Reaction Status Date / Time No Known Allergies Allergy Verified 07/25/23 16:55 PFSH Acute 2 PFSH: Medical History Hypokalemia Metabolic acidosis Polysubstance abuse DKA (diabetic ketoacidosis) Type 1 diabetes mellitus, uncontrolled DKA (diabetic ketoacidosis) History of thyroid nodule right complex nodule, FNA showed benign 03/2022 Transaminitis Hypertension Hyperthyroidism subclinical Amphetamine abuse Long-term insulin use Diabetes type 1, uncontrolled History of DKA Surgical History No history of previous surgery none known Family History Other Family history unknown Social History Smoking and tobacco/nicotine status: current every day tobacco/nicotine user cigarettes Packs smoked per day: 1 Alcohol intake: former Substance/Drug Use: current Vitals/I&O/Wt Last Vital Signs Temp 98 F 12/01/23 03:51 Pulse 117 H 12/01/23 05:08 Resp 22 H 12/01/23 05:08 BP 123/66 12/01/23 05:08 Pulse Ox 100 12/01/23 05:08 O2 Del Method Room Air 12/01/23 05:08 11/30/23 11/30/23 12/01/23 14:59 22:59 06:59 Intake Total 1000 / 1000 Balance 1000 / 1000 Weight last 48 hrs Weight 63.503 kg Physical Exam 2 Const: COMMON NORMALS: patient oriented x3 GENERAL APPEARANCE: ill appearing ORIENTATION/CONSCIOUSNESS: Yes awake HENMT: COMMON NORMALS: oropharynx normal OTHER: Dry mucous membranes Neck/C-Spine: COMMON NORMALS: no JVD Resp: COMMON NORMALS: normal respiratory effort and clear to auscultation bilaterally AUSCULTATION: clear to auscultation bilaterally Cardio: COMMON NORMALS: no JVD, regular rhythm, S1 normal heart sound present, S2 normal heart sound present and No murmurs present (Cardio) RHYTHM: regular rhythm HEART SOUNDS: S1 normal heart sound present and S2 normal heart sound present GI: COMMON NORMALS: Normal to inspection, nondistended, normoactive bowel sounds present, Soft to palpation and non-tender PALPATION: Yes Soft to palpation Extremity: COMMON NORMALS: no joint enlargement and no pedal edema Neuro: COMMON NORMALS: patient oriented x3 and moves all extremities S ENSORIUM/ORIENTATION: Yes alert Skin: COMMON NORMALS: no rashes or lesions noted GENERAL SKIN EXAM: no rashes or lesions noted Data 12/01/23 03:40 12/01/23 03:40 A&P Assessment and plan (1) DKA, type 1: Presented with malaise, nausea, vomiting, thirst, hyperglycemia, sinus tachycardia, cytosis,, metabolic acidosis, reviewed vitals, CBC, ABG, CMP, magnesium, phosphorus, blood glucose, anion gap, bicarb, serum and urine ketones, ER provider note, discussed with ER provider. Received 1 L fluid bolus, continue IV hydration, sodium chloride to mL per hour, insulin drip, at risk of hyper/hypoglycemia with treatment, monitor glucose at risk of electrolyte abnormality, follow-up chemistry. Follow-up magnesium, phosphorus. Noted leukocytosis, tachycardia, he denies any symptoms suggestive of infection. Will check chest x-ray. UA not suggestive of infection. Denies substance use, UDS unremarkable. N.p.o., sips, chips, meds. Admit to ICU. DVT prophylaxis, PPI prophylaxis. (2) Nicotine dependence, cigarettes, uncomplicated: (3) Acute kidney injury: Reviewed BUN, creatinine, noted elevated up to 1.8. Normal baseline. With DKA, appears dry, fluid resuscitation as above. Likely prerenal renal failure. Recheck kidney function. (4) Polysubstance abuse: Denies substance use, UDS unremarkable. Plan HTN: Monitor blood pressures, requesting to confirm home medications. DM 1: Encourage adherence with insulin. Follow-up with endocrinology. Other medical problems Requesting to confirm, records, please review and reconcile once available. Attestations 2 Medical Necessity Statement*: Admission of over 2 midnights anticipated for assessment of management of DKA complicated with MICHAEL. Coding Level of Care Code Critical Care >/= 30 minutes Critical care time (in minutes): 35 The high probability of a clinically significant, sudden or life threatening deterioration, as referenced in this documentation, required my full and direct attention, intervention and personal management. The critical care time shown is in addition to time spent performing any reported separately billable procedures and includes the following: [x] Data and vital sign review and interpretation [x ] Patient assessment, examination and intervention [x] Medication orders and management [x] Patient/Family updates as able [x] Care Coordination and Documentation. Diagnoses DKA, type 1 E10.10 Nicotine dependence, cigarettes, uncomplicated F17.210 Acute kidney injury N17.9 Polysubstance abuse F19.10
--- NOTE | 2023-12-01 05:20 | XRR_ITS ---
PROCEDURE INFORMATION: Exam: XR Chest Exam date and time: 12/01/2023 5:38 AM Age: 28 years old Clinical indication: Abnormal findings; Abnormal diagnostic tests; Abnormal ekg; Other: Tachycardia; Patient HX: Elevated wbc with tacycardia and dka; Additional info: Leukocytosis, tachy, dka TECHNIQUE: Imaging protocol: Radiologic exam of the chest. Views: 1 view. COMPARISON: CR XR chest 1V portable [id number] 09/05/2023 3:31 PM FINDINGS: Lungs: Unremarkable. No consolidation. Pleural spaces: Unremarkable. No pleural effusion. No pneumothorax. Heart/Mediastinum: Unremarkable. No cardiomegaly. Bones/joints: Unremarkable. XR/XR chest 1V portable [id number] IMPRESSION: No acute findings.
[2023-12-01 05:24] LABS: Add Urine Microscopic? YES; Protein Urine Trace (Negative); Urine Appearance SL Hazy (CLEAR); Urine Color Yellow (Yellow); pH Urine 5 (5-7)
[2023-12-01 05:25] LABS: Bacteria Urine TRACE /hpf; Bilirubin Urine Neg (Negative); Blood Urine Neg (Negative); Glucose Urine UA 4+ (Normal); Ketones Urine 3+ (Negative); Leukocyte Esterase Urine Negative (Negative); Nitrate Urine Negative (Negative); RBC Urine 0-4 /hpf (0-2); Squamous Epithelial Cell Urine 0-4 /hpf (0-5); Urobilinogen Urine Norm (Negative); WBC Urine 0-4 /hpf (0-5)
[2023-12-01 05:27] LABS: Amphetamines Screen Urine Negative (Negative); Barbiturates Screen Urine Negative (Negative); Benzodiazepines Screen Urine Negative (Negative); Cocaine Screen Urine Negative (Negative); Opiate Screen Urine Negative (Negative); PCP Screen Urine Negative (Negative); THC Screen Urine Negative (Negative)
[2023-12-01] MEDS: sodium chloride 0.9% 1,000 ML 250 ML IV (05:55)
[2023-12-01] MEDS: pantoprazole 40 mg SDV IVP (06:42)
[2023-12-01] MEDS: enoxaparin 40 mg/0.4 mL Syringe SUBCUT (06:42)
--- NOTE | 2023-12-01 07:07 | PC.NURSE ---
This nurse took over care from JENNIFER Garrido @ [id number]
[2023-12-01] MEDS: insulin regular-human 250 UNIT in sodium chloride 0.9% 250 ML 6.06 UNIT IV (07:19)
--- NOTE | 2023-12-01 07:55 | PC.PHAR ---
Pt unable to verify medications (does not cooperate). Med rec completed with current med list with written dates. 12/01/23
[2023-12-01] MEDS: sodium bicarbonate 150 MEQ in dextrose 5% 1,000 ML 100 MEQ IV (08:22)
[2023-12-01 08:23] LABS: Glucose Point of Care 530 mg/dL (70-110)
[2023-12-01 08:23] LABS: Glucose Point of Care 506 mg/dL (70-110)
[2023-12-01 09:08] LABS: Blood Urea Nitrogen 28 mg/dL (6-20); Calcium 8.1 mg/dL (8.5-10.5); Chloride 94 mmol/L (98-107); Glomerular Filtration Rate 56.6 mL/min (90-130); Osmolality Calculated 302 mOsm/kg (285-295); Sodium 132 mmol/L (136-145)
[2023-12-01 09:23] LABS: Carbon Dioxide 5 mmol/L (22-29); Glucose 507 mg/dL (65-115)
[2023-12-01 09:29] LABS: Glucose Point of Care 356 mg/dL (70-110)
--- NOTE | 2023-12-01 09:34 | W.PM.EVENTAC ---
Event Note Event Note: Currently on DKA protocol Severe acidosis added bicarb drip I have asked nurse not to go up on the insulin drip because his blood sugar is 356 I would add potassium supplementation to IV fluids as well Patient can have ice chips Patient is stating that he only missed 1 night of insulin And transferring 1 patient out of ICU he will get an ICU bed soon
--- NOTE | 2023-12-01 09:34 | PC.NURSE ---
per Dr. Mosley, pt blood sugar was checked at 0820 and was 506, bs was checked again @ 0920 and was 356. Per protocol insulin should be increased another 1.5 units, Dr. Mosley verbalized to leave insulin drip at 9 units and to increased bi-carb to 150mls/hr.
[2023-12-01] MEDS: sodium chlor 0.9% + KCl 20 mEq 20 MEQ/1,000 ML BAG 100 MEQ IV (09:56)
[2023-12-01 10:22] LABS: Glucose Point of Care 342 mg/dL (70-110)
[2023-12-01 11:29] LABS: Glucose Point of Care 306 mg/dL (70-110)
[2023-12-01 12:33] LABS: Glucose Point of Care 236 mg/dL (70-110)
[2023-12-01] MEDS: D5-NS 0.45% + KCL 20 mEq 20 MEQ/1,000 ML BAG 100 MEQ IV (12:53)
--- NOTE | 2023-12-01 12:55 | PC.NURSE ---
Spoke with Dr. Mosley regarding insulin drip protocol, BG at 236, no titration, per protocol infuse dextrose containing fluid, order to change to D5-NS +KCL 20mEq at 100ml/hr.
[2023-12-01 13:29] LABS: Glucose Point of Care 211 mg/dL (70-110)
[2023-12-01 13:32] LABS: Blood Urea Nitrogen 24 mg/dL (6-20); Calcium 8.1 mg/dL (8.5-10.5); Carbon Dioxide 16 mmol/L (22-29); Chloride 102 mmol/L (98-107); Glomerular Filtration Rate 66.7 mL/min (90-130); Glucose 251 mg/dL (65-115); Osmolality Calculated 295 mOsm/kg (285-295); Sodium 136 mmol/L (136-145)
[2023-12-01 14:26] LABS: Glucose Point of Care 222 mg/dL (70-110)
[2023-12-01 15:27] LABS: Glucose Point of Care 181 mg/dL (70-110)
[2023-12-01] MEDS: sodium bicarbonate 150 MEQ in dextrose 5% 1,000 ML IV (16:25)
--- NOTE | 2023-12-01 16:25 | PC.NURSE ---
Spoke with Dr. Mosley, Sodium bicarb to be stopped at 1800. IV pump set to reflect this with new bag scan.
[2023-12-01 16:33] LABS: Glucose Point of Care 155 mg/dL (70-110)
--- NOTE | 2023-12-01 16:34 | PC.NURSE ---
Dr. Mosley verbal order to run insulin drip at 1 unit/ hour due to protocol requiring a decrease by 8unit/hr when drip running at 4unit/hr.
[2023-12-01 16:48] LABS: Anion Gap 14.7 (5-19); Blood Urea Nitrogen 22 mg/dL (6-20); Calcium 7.7 mg/dL (8.5-10.5); Carbon Dioxide 23 mmol/L (22-29); Chloride 103 mmol/L (98-107); Glomerular Filtration Rate 90.3 mL/min (90-130); Glucose 174 mg/dL (65-115); Osmolality Calculated 292 mOsm/kg (285-295); Potassium 3.7 mmol/L (3.5-5.1); Sodium 137 mmol/L (136-145)
[2023-12-01 18:02] LABS: Glucose Point of Care 182 mg/dL (70-110)
[2023-12-01 19:12] LABS: Glucose Point of Care 131 mg/dL (70-110)
[2023-12-01] MEDS: lisinopril 10 mg Tablet PO (20:22)
[2023-12-01] MEDS: metoprolol tartrate 25 mg Tablet PO (20:22)
[2023-12-01 20:36] LABS: Glucose Point of Care 122 mg/dL (70-110)
[2023-12-01] MEDS: insulin glargine 100 units/1 mL 30 UNIT SUBCUT (20:50)
[2023-12-01 21:02] LABS: Anion Gap 16.5 (5-19); Blood Urea Nitrogen 18 mg/dL (6-20); Calcium 7.7 mg/dL (8.5-10.5); Carbon Dioxide 23 mmol/L (22-29); Chloride 102 mmol/L (98-107); Glucose 141 mg/dL (65-115); Osmolality Calculated 290 mOsm/kg (285-295); Potassium 3.5 mmol/L (3.5-5.1); Sodium 138 mmol/L (136-145)
[2023-12-01 22:01] LABS: Glucose Point of Care 142 mg/dL (70-110)
[2023-12-01 23:03] LABS: Glucose Point of Care 185 mg/dL (70-110)
[2023-12-02] VITALS (36 sets, daily range): BP systolic 122–153; BP diastolic 68–96; PULSE 90–105; RESP 12–31; TEMP 37.2; O2SAT 87–100
[2023-12-02 02:05] LABS: Blood Urea Nitrogen 16 mg/dL (6-20); Calcium 7.5 mg/dL (8.5-10.5); Carbon Dioxide 25 mmol/L (22-29); Chloride 98 mmol/L (98-107); Glomerular Filtration Rate 116.9 mL/min (90-130); Glucose 227 mg/dL (65-115); Osmolality Calculated 286 mOsm/kg (285-295); Sodium 134 mmol/L (136-145)
[2023-12-02 02:06] LABS: Anion Gap 14.6 (5-19); Potassium 3.6 mmol/L (3.5-5.1)
[2023-12-02 04:58] LABS: Basophils % 0.2 %; Eosinophils % 0.1 %; Hematocrit 37.2 % (37-53); Lymphocytes # 1.9 10^3/uL (0.8-4.8); Lymphocytes % 11.4 %; Mean Corpuscular HGB Conc 33.3 g/dL (30-55); Mean Corpuscular Hemoglobin 27.4 pg (27-33); Mean Corpuscular Volume 82.1 fl (82-101); Mean Platelet Volume 11.4 fL (7.4-10.4); Monocytes % 5.9 %; Neutrophils # 13.85 10^3/uL (1.8-7.7); Nucleated Red Blood Cells % 0 %; Platelet Count 249 10^3/cmm (157-399); Red Blood Count 4.53 10^6/uL (3.85-5.65); Red Cell Distribution Width 13.5 % (12.1-15.1); White Blood Count 16.86 10^3/uL (3.29-11.43)
[2023-12-02 05:22] LABS: Alanine Aminotransferase 7 U/L (0-41); Albumin Level 3.2 g/dL (3.5-5.2); Alkaline Phosphatase 91 U/L (40-130); Anion Gap 11.4 (5-19); Aspartate Amino Transferase 11 U/L (0-40); Blood Urea Nitrogen 15 mg/dL (6-20); Calcium 7.8 mg/dL (8.5-10.5); Carbon Dioxide 27 mmol/L (22-29); Chloride 101 mmol/L (98-107); Globulin 1.7 g/dL (1.3-4.6); Glomerular Filtration Rate 116.9 mL/min (90-130); Glucose 218 mg/dL (65-115); Magnesium 1.8 mg/dL (1.7-2.3); Osmolality Calculated 289 mOsm/kg (285-295); Potassium 3.4 mmol/L (3.5-5.1); Sodium 136 mmol/L (136-145); Total Bilirubin 0.3 mg/dL (0.15-1.2); Total Protein 4.9 g/dL (6.6-8.7)
[2023-12-02] MEDS: enoxaparin 40 mg/0.4 mL Syringe SUBCUT (05:36)
[2023-12-02] MEDS: pantoprazole 40 mg SDV IVP (06:06)
--- NOTE | 2023-12-02 07:40 | PM.DCS ---
Discharge Providers Date of Admission: 12/01/23 08:59 Date of Discharge: December 02, 2023 Attending Provider at Admission: Iftikhar Soriano Attending Provider at Discharge: Daniel Mosley MD Primary Care Provider: Adi Castellon MD Diagnoses at Discharge Discharge Diagnosis (1) DKA, type 1: Status: Acute (2) Nicotine dependence, cigarettes, uncomplicated: Status: Chronic (3) Acute kidney injury: Status: Acute (4) Polysubstance abuse: Status: Acute Reason for Visit Reason for Visit: High BG Hospital Course Hospital Course 28-year-old male who was admitted for management evaluation of recurrent nausea vomiting he is claiming that he only missed 1 dose of insulin, he was in severe DKA with metabolic acidosis I put him on bicarb drip along DKA protocol. It took a 24 hours to correct his anion gap, he is tolerating diet no active nausea vomiting I will resume his lisinopril and metoprolol. He does have insulin supply at home however I will provide him refills. No need of antibiotics. Will give him 40 mg potassium before he leaves. Physical Exam Narrative: Awake and alert male GCS 15 nonfocal neuroexam Afebrile Abdomen soft pleasant cooperative Discharge Data Studies Completed and Pending Completed Studies During Hospitalization Category Date Time Status CXRP [XR chest 1V portable [id number]] Routine Exams 12/01/23 05:20 Completed Pending at discharge Category Date Time Status Complete Blood Count w/Auto AM LABS Lab 12/03/23 04:00 Ordered Complete Blood Count w/Auto AM LABS Lab 12/04/23 04:00 Ordered Comprehensive Metabolic Panel AM LABS Lab 12/03/23 04:00 Ordered Comprehensive Metabolic Panel AM LABS Lab 12/04/23 04:00 Ordered Magnesium AM LABS Lab 12/03/23 04:00 Ordered Magnesium AM LABS Lab 12/04/23 04:00 Ordered Radiology Impressions Chest X-Ray 12/01/23 05:20 IMPRESSION: No acute findings. Laboratory Results WBC 16.86 10^3/uL (3.29-11.43) H 12/02/23 04:44 RBC 4.53 10^6/uL (3.85-5.65) 12/02/23 04:44 Hgb 12.40 g/dL (11.27-16.99) 12/02/23 04:44 Hct 37.2 % (37-53) 12/02/23 04:44 MCV 82.1 fl (82-101) 12/02/23 04:44 MCH 27.4 pg (27-33) 12/02/23 04:44 MCHC 33.3 g/dL (30-55) 12/02/23 04:44 RDW 13.5 % (12.1-15.1) 12/02/23 04:44 Plt Count 249 10^3/cmm (157-399) D 12/02/23 04:44 MPV 11.4 fL (7.4-10.4) H 12/02/23 04:44 Neut % (Auto) 82.0 % 12/02/23 04:44 Lymph % (Auto) 11.4 % 12/02/23 04:44 Hemphill % (Auto) 5.9 % 12/02/23 04:44 Eos % (Auto) 0.1 % 12/02/23 04:44 Baso % (Auto) 0.2 % 12/02/23 04:44 Neut # (Auto) 13.85 10^3/uL (1.8-7.7) H 12/02/23 04:44 Lymph # (Auto) 1.9 10^3/uL (0.8-4.8) 12/02/23 04:44 Hemphill # (Auto) 1.0 10^3/uL (0.2-0.9) H 12/02/23 04:44 Eos # (Auto) 0.0 10^3/uL (0.0-0.8) 12/02/23 04:44 Baso # (Auto) 0.0 10^3/uL (0.0-0.1) 12/02/23 04:44 Nucleated RBC % (auto) 0 % 12/02/23 04:44 Nucleated RBCs # 0.0 /100WBC 12/02/23 04:44 Specimen Type Arterial 12/01/23 04:06 Sample Site Brachial, right 12/01/23 04:06 ABG pH 7.13 (7.35-7.45) L* 12/01/23 04:06 ABG pCO2 10.7 mmHg (35-45) L* 12/01/23 04:06 ABG pO2 148.0 mmHg (80.0-100.0) H 12/01/23 04:06 ABG HCO3 3.6 mmol/L (22-26) L 12/01/23 04:06 ABG Base Excess -23.0 mmol/L (-2.0-2.0) L 12/01/23 04:06 Bereket Test N/a 12/01/23 04:06 Hematocrit 43.8 % (42-52) 12/01/23 04:06 O2 Delivery Device Room air 12/01/23 04:06 Inserter Operator ID [email or web address] 12/01/23 04:06 Sodium 136 mmol/L (136-145) 12/02/23 04:44 Potassium 3.4 mmol/L (3.5-5.1) L 12/02/23 04:44 Chloride 101 mmol/L (98-107) 12/02/23 04:44 Carbon Dioxide 27 mmol/L (22-29) 12/02/23 04:44 Anion Gap 11.4 (5-19) 12/02/23 04:44 BUN 15 mg/dL (6-20) 12/02/23 04:44 Creatinine 0.8 mg/dL (0.7-1.2) 12/02/23 04:44 GFR Calculation 116.9 mL/min (90-130) 12/02/23 04:44 Glucose 218 mg/dL (65-115) H 12/02/23 04:44 POC Glucose 185 mg/dL (70-110) H 12/01/23 22:59 Calculated Osmolality 289 mOsm/kg (285-295) 12/02/23 04:44 Calcium 7.8 mg/dL (8.5-10.5) L 12/02/23 04:44 Phosphorus 7.4 mg/dL (2.5-4.5) H 12/01/23 03:40 Magnesium 1.8 mg/dL (1.7-2.3) 12/02/23 04:44 Total Bilirubin 0.3 mg/dL (0.15-1.2) 12/02/23 04:44 AST 11 U/L (0-40) 12/02/23 04:44 ALT 7 U/L (0-41) 12/02/23 04:44 Alkaline Phosphatase 91 U/L (40-130) 12/02/23 04:44 Total Protein 4.9 g/dL (6.6-8.7) L 12/02/23 04:44 Albumin 3.2 g/dL (3.5-5.2) L 12/02/23 04:44 Globulin 1.7 g/dL (1.3-4.6) 12/02/23 04:44 Urine Color Yellow (Yellow) 12/01/23 05:05 Urine Appearance Sl hazy (CLEAR) A 12/01/23 05:05 Urine pH 5 (5-7) 12/01/23 05:05 Ur Specific [place] 1.020 (1.005-1.030) 12/01/23 05:05 Urine Protein Trace (Negative) 12/01/23 05:05 Urine Glucose (UA) 4+ (Normal) H 12/01/23 05:05 Urine Ketones 3+ (Negative) H 12/01/23 05:05 Urine Blood Neg (Negative) 12/01/23 05:05 Urine Nitrate Negative (Negative) 12/01/23 05:05 Urine Bilirubin Neg (Negative) 12/01/23 05:05 Urine Urobilinogen Norm mg/dL (Negative) 12/01/23 05:05 Ur Leukocyte Esterase Negative (Negative) 12/01/23 05:05 Urine RBC 0-4 /hpf (0-2) H 12/01/23 05:05 Urine WBC 0-4 /hpf (0-5) H 12/01/23 05:05 Ur Squamous Epith Cells 0-4 /hpf (0-5) H 12/01/23 05:05 Amorphous Sediment Not Reportable 12/01/23 05:05 Urine Bacteria Trace /hpf (NONE) 12/01/23 05:05 Urine Opiates Screen Negative ng/mL (Negative) 12/01/23 05:05 Ur Barbiturates Screen Negative ng/mL (Negative) 12/01/23 05:05 Ur Phencyclidine Scrn Negative ng/mL (Negative) 12/01/23 05:05 Ur Amphetamines Screen Negative ng/mL (Negative) 12/01/23 05:05 U Benzodiazepines Scrn Negative ng/mL (Negative) 12/01/23 05:05 Urine Cocaine Screen Negative ng/mL (Negative) 12/01/23 05:05 U Marijuana (THC) Screen Negative ng/mL (Negative) 12/01/23 05:05 Serum Ketones Positive (Negative) H 12/01/23 03:40 Vitals Last Vital Signs Temp 98.9 F 12/02/23 00:15 Pulse 94 12/02/23 06:00 Resp 13 12/02/23 04:15 BP 125/68 12/02/23 04:15 Pulse Ox 98 12/02/23 04:15 O2 Del Method Room Air 12/02/23 04:15 Discharge Plan Discharge Patient Disposition: Home Condition: Stable Prescriptions: Continued (DME) blood-glucose meter [OneTouch Ultra2 Meter] Kit See Rx Instructions .Route Qty: 1 0RF Rx Instructions: To use TID to check blood sugar levels before taking insulin (DME) blood sugar diagnostic Strip See Rx Instructions .Route Qty: 300 3RF Rx Instructions: To use TID in onetouch meter to check blood sugar, 90 day supply lisinopril 10 mg Tablet 10 mg PO DAILY Qty: 60 0RF metoprolol tartrate 25 mg Tablet 25 mg PO BID@0900,2100 Qty: 60 0RF pantoprazole 40 mg tablet,delayed release (DR/EC) 40 mg PO DAILY Novolog FlexPen U-100 Insulin 100 unit/mL (3 mL) insulin pen 10 unit SUBCUT TID Qty: 15 3RF Levemir FlexPen 100 unit/mL (3 mL) insulin pen 30 unit SUBCUT QPM Qty: 15 2RF Discharge Orders: Discharge Order (Routine); Ordered 12/02/23 Ordered By: Daniel Mosley Referrals: Adi Castellon MD [Primary Care Provider] - Patient Instructions: Acute Kidney Injury (DC), Diabetic Ketoacidosis (DC), Polysubstance Use Disorder (DC), Opioid Safety Discharge Attestations Time Spent in Discharge Care*: greater than 30 min Status at Discharge: Cognitive status at discharge: cognitively intact, Behavioral status at discharge: cooperative, Quality Metrics Clinical Quality Measures [ No reported AMI, CVA or VTE this stay] Coding Level of Care Code Acute Code for Chg Fwd Diagnoses DKA, type 1 E10.10 Nicotine dependence, cigarettes, uncomplicated F17.210 Acute kidney injury N17.9 Polysubstance abuse F19.10
[2023-12-02 07:43] LABS: Glucose Point of Care 151 mg/dL (70-110)
[2023-12-02] MEDS: lisinopril 10 mg Tablet PO (08:31)
[2023-12-02] MEDS: metoprolol tartrate 25 mg Tablet PO (08:31)
[2023-12-02] MEDS: insulin lispro 100 unit/1 mL SUBCUT (08:31)
[2023-12-02] MEDS: potassium chloride ER 20 mEq Tablet 40 MEQ PO (09:20)
== END 2023-12-02 09:30 | disposition home or self-care (01) | DRG 638 ==
LOC: ER 04:40 → ER IP 07:39 → ICU 10:43
PROVIDERS: Admitting Provider Internal Medicine; Emergency Provider Emergency Medicine; PCP Family Medicine; Visit Provider Internal Medicine
DX: E10.10 Type 1 diabetes mellitus with ketoacidosis without coma (principal); N17.9 Acute kidney failure, unspecified; I10 Essential (primary) hypertension; F17.210 Nicotine dependence, cigarettes, uncomplicated; F19.10 Other psychoactive substance abuse, uncomplicated; Z79.4 Long term (current) use of insulin
CPT/HCPCS: 36415; 36416; 36600; 71045; 80048; 80053; 80306; 81001; 82009; 82803; 82962; 83735; 84100; 85025; 96365; 96366; 96367; 96372; 96375; 96376; 99291; C9113; J1650; J1815; J2405; J3480; J7030; J7050; J7070

== ENCOUNTER 2024-01-11 17:04 | Inpatient (IN) | payer MEDICAID, SELFPAY ==
[2024-01-11] VITALS (77 sets, daily range): BP systolic 90–129; BP diastolic 51–88; PULSE 110–156; RESP 17–36; TEMP 36.4–37.2; O2SAT 73–100; BMI 20.4
--- NOTE | 2024-01-11 17:09 | XRR_ITS ---
PROCEDURE INFORMATION: Exam: XR Chest Exam date and time: 01/11/2024 6:26 PM Age: 28 years old Clinical indication: Other vascular access device placement or adjustment; Central line, tunnelled; Additional info: Tachycardia TECHNIQUE: Imaging protocol: Radiologic exam of the chest. Views: 1 view. COMPARISON: CR (CHEST, ) 12/01/2023 5:38 AM FINDINGS: Tubes, catheters and devices: Right central line terminates in the right atrium. Lungs: Unremarkable. No consolidation. Pleural spaces: Unremarkable. No pleural effusion. No pneumothorax. Heart/Mediastinum: Unremarkable. No cardiomegaly. Bones/joints: Unremarkable. XR/XR chest 1V portable [id number] IMPRESSION: Right central line terminates in the right atrium, would recommend repositioning.
--- NOTE | 2024-01-11 17:10 | ECG_ITS ---
[facility] Test Date: 2024-01-11 Pat Name: Jean Miller Department: Room: Gender: Male Client Account Specialist: : 1995 Requested By: Michael Braun Order Number: [id number] Remy MD: Bishnu Dennis M.D. Measurements Intervals [place] Rate: 114 P: 70 SD: 250 QRS: 14 QRSD: 168 T: 98 QT: 403 QTc: 556 Interpretive Statements SINUS TACHYCARDIA WITH FIRST DEGREE AV BLOCK RIGHT ATRIAL ENLARGEMENT [0.3mV P-WAVE] LEFT ATRIAL ENLARGEMENT [-0.15mV P-WAVE IN V1/V2] LEFT BUNDLE BRANCH BLOCK [120+ ms QRS DURATION, 80+ ms Q/S IN V1/V2, 85+ ms R IN I/aVL/V5/V6] Compared to ECG 09/05/2023 01:51:30 First degree AV block now present Atrial abnormality now present Left bundle-branch block now present Myocardial infarct finding no longer present Q waves no longer present ST (T wave) deviation no longer present Electronically Signed On 01-12-2024 18:36:11 CDT by Bishnu Dennis M.D. [email or web address]
[2024-01-11 17:18] LABS: Basophils # 0.2 10^3/uL (0.0-0.1); Basophils % 0.6 %; Eosinophils % 0.1 %; Hematocrit 50.1 % (37-53); Lymphocytes # 2.2 10^3/uL (0.8-4.8); Lymphocytes % 6.6 %; Mean Corpuscular HGB Conc 28.1 g/dL (30-55); Mean Corpuscular Hemoglobin 26.9 pg (27-33); Mean Corpuscular Volume 95.4 fl (82-101); Mean Platelet Volume 12.6 fL (7.4-10.4); Monocytes # 2.7 10^3/uL (0.2-0.9); Monocytes % 8.1 %; Neutrophils # 27.45 10^3/uL (1.8-7.7); Neutrophils % 82.7 %; Nucleated Red Blood Cells % 0 %; Platelet Count 414 10^3/cmm (157-399); Red Blood Count 5.25 10^6/uL (3.85-5.65); Red Cell Distribution Width 13.7 % (12.1-15.1)
[2024-01-11 17:22] LABS: White Blood Count 33.16 10^3/uL (3.29-11.43)
--- NOTE | 2024-01-11 17:22 | ED_ITS ---
HPI - Recheck/Abnormal Lab/Rx 2 General: Chief Complaint: Recheck/Abnormal Lab/Rx Stated Complaint: HYPERGLYCEMIA Time Seen by Provider: 01/11/24 17:09 History of Present Illness: Patient arrives by EMS with complaints of tachycardic and high blood sugar. Patient is a well-known insulin-dependent type 1 diabetic who is very noncompliant and has been DKA multiple times. Patient was reported to be in wide-complex tachycardia paroxysmal he by EMS. EMS did give him 1 L of normal saline on route. Patient is responsive only to painful stimuli. Patient is tachypneic with a rate of about 36 breaths/min with a pulse of 115 bpm. Review of Systems 2 General: Reports: 10 or more systems reviewed and unremarkable except in HPI and below PFSH ED 2 PFSH: Medical History DKA, type 1 Nicotine dependence, cigarettes, uncomplicated Acute kidney injury Hypokalemia Metabolic acidosis Polysubstance abuse DKA (diabetic ketoacidosis) Type 1 diabetes mellitus, uncontrolled DKA (diabetic ketoacidosis) History of thyroid nodule right complex nodule, FNA showed benign 03/2022 Transaminitis Hypertension Hyperthyroidism subclinical Amphetamine abuse Long-term insulin use Diabetes type 1, uncontrolled History of DKA Surgical History No history of previous surgery none known Family History Other Family history unknown Social History Smoking and tobacco/nicotine status: current every day tobacco/nicotine user cigarettes Packs smoked per day: 1 Alcohol intake: former Substance/Drug Use: current Physical Exam 2 HENMT: COMMON NORMALS: normocephalic, atraumatic, hearing grossly normal bilaterally, external ears normal, Normal external nose present, moist oral mucous membranes and oropharynx normal HEAD & SCALP: normocephalic and atraumatic NOSE: Normal external nose present EXTERNAL EAR: Yes external ears normal Neck/C-Spine: COMMON NORMALS: no JVD Chest: COMMONS NORMALS: normal inspection of the chest and normal palpation of entire chest wall Resp: COMMON NORMALS: normal respiratory effort (Tachypneic at a rate of approximate 36/min), No retractions, No use of accessory muscles and clear to auscultation bilaterally AUSCULTATION: clear to auscultation bilaterally Cardio: COMMON NORMALS: no JVD, regular rhythm, S1 normal heart sound present, S2 normal heart sound present, No gallops present (Cardio), No clicks present (Cardio), No murmurs present (Cardio) and No rub (Cardio); negative for regular rate (Tachycardic) RATE: abnormal rate (Tachycardic) RHYTHM: regular rhythm HEART SOUNDS: S1 normal heart sound present and S2 normal heart sound present GI: COMMON NORMALS: Normal to inspection, nondistended, normoactive bowel sounds present, Soft to palpation, non-tender, No hepatosplenomegaly present and no masses PALPATION: Yes Soft to palpation and Yes No hepatosplenomegaly present Procedures Central Line Placement Right IJ: Time Out Performed: Yes Patient Placed on Monitor/Pulse Ox: Yes MD Prep: mask, gown and gloves Central Line Prep: Chlorhexidine scrub and sterile drapes applied Local Anesthetic: lidocaine 1% Amount of anesthesia used (mL): 3 Ultrasound Used for Placement: Yes Central Line Lumen Inserted: triple Post Procedure: sutured in place, good blood return, all ports aspirated, flushed, capped and sterile dressing applied Post Procedure X-Ray: tip of catheter in good position and no pneumothorax seen Patient Tolerated Procedure: well and no complications Course 2 Vital Signs: Vital signs: Vital Signs Pulse Rate 112 H 01/11/24 18:30 Respiratory Rate 22 H 01/11/24 18:30 Blood Pressure 129/82 01/11/24 18:30 Pulse Oximetry 89 L 01/11/24 18:30 Oxygen Delivery Me thod Room Air 01/11/24 17:05 MDM - Recheck/Abnormal Lab/Rx Medical Decision Making Patient brought in for hypoglycemia. Patient was altered and responsive to painful stimuli. Fingers high ABG was obtained which showed a pH of 6.8 pCO2 of 8.1 pO2 147 sodium 128 potassium 7.7 calcium 1.12 glucose 1066 patient was immediately bolused 2 more liters of fluid for total of 3 L counting the 1 that EMS gave him. Patient was given 15 units of IV insulin and started on insulin drip, 1 g of calcium gluconate was given, Dr. Soriano was consulted who suggested we start him on a bicarb drip, get blood cultures, chest x-ray, prophylactically treat with Zosyn, we placed a central line with no complications, when lab work came back he had a white count of 33,000, sodium of 121, potassium 7.0, chloride 74, bicarb 3, BUN/creatinine of 42/2.9, glucose of 1248, positive serum ketones, magnesium 2.9, anion gap of 51, phosphorus 11.3, troponin baseline of 53, patient was admitted to the ICU I ran both EKGs by Dr. Calle due to the first 1 having irregular type pattern and new left bundle branch block all probably from the hyperkalemia but wanted a field artillery radar operator opinion. He stated this was due to the hyperkalemia and DKA and since patient was not having chest pain all he would do his run serial troponins and observe. Differential Diagnosis Unlikely encounter for medication refill, encounter for wound recheck, encounter for recheck of burn, encounter for removal of sutures or warfarin-induced coagulopathy Medical Records I reviewed the patient's medical records. Lab Data I reviewed the patient's lab results. 01/11/24 17:10 01/11/24 17:10 Laboratory Results WBC 33.16 10^3/uL (3.29-11.43) H* 01/11/24 17:10 RBC 5.25 10^6/uL (3.85-5.65) 01/11/24 17:10 Hgb 14.10 g/dL (11.27-16.99) 01/11/24 17:10 Hct 50.1 % (37-53) 01/11/24 17:10 MCV 95.4 fl (82-101) 01/11/24 17:10 MCH 26.9 pg (27-33) L 01/11/24 17:10 MCHC 28.1 g/dL (30-55) L 01/11/24 17:10 RDW 13.7 % (12.1-15.1) 01/11/24 17:10 Plt Count 414 10^3/cmm (157-399) H 01/11/24 17:10 MPV 12.6 fL (7.4-10.4) H 01/11/24 17:10 Neut % (Auto) 82.7 % 01/11/24 17:10 Lymph % (Auto) 6.6 % 01/11/24 17:10 [place] % (Auto) 8.1 % 01/11/24 17:10 Eos % (Auto) 0.1 % 01/11/24 17:10 Baso % (Auto) 0.6 % 01/11/24 17:10 Neut # (Auto) 27.45 10^3/uL (1.8-7.7) H 01/11/24 17:10 Lymph # (Auto) 2.2 10^3/uL (0.8-4.8) 01/11/24 17:10 [place] # (Auto) 2.7 10^3/uL (0.2-0.9) H 01/11/24 17:10 Eos # (Auto) 0.0 10^3/uL (0.0-0.8) 01/11/24 17:10 Baso # (Auto) 0.2 10^3/uL (0.0-0.1) H 01/11/24 17:10 Nucleated RBC % (auto) 0 % 01/11/24 17:10 Nucleated RBCs # 0.0 /100WBC 01/11/24 17:10 Specimen Type Arterial 01/11/24 17:10 Sample Site Brachial, right 01/11/24 17:10 ABG pH 6.88 (7.35-7.45) L* 01/11/24 17:10 ABG pCO2 8.1 mmHg (35-45) L* 01/11/24 17:10 ABG pO2 147.0 mmHg (80.0-100.0) H 01/11/24 17:10 ABG HCO3 1.5 mmol/L (22-26) L 01/11/24 17:10 ABG O2 Saturation 98.4 01/11/24 17:10 ABG Base Excess -30.2 mmol/L (-2.0-2.0) L 01/11/24 17:10 [place] Test N/a 01/11/24 17:10 A-a O2 Gradient Not Reportable 01/11/24 17:10 Hematocrit 38.2 % (42-52) L 01/11/24 17:10 Hgb O2 Saturation 96.6 % (95-100) 01/11/24 17:10 Carboxyhemoglobin 0.9 %THgb (0.4-20.1) 01/11/24 17:10 Methemoglobin 1.0 % (0.4-1.5) 01/11/24 17:10 Total Hemoglobin 12.5 g/dL (14-18) L 01/11/24 17:10 Sodium 120.0 mmol/L (131-143) L 01/11/24 17:10 Potassium 7.7 mmol/L (3.5-5.0) H 01/11/24 17:10 Glucose 1066.0 mg/dL (70-115) H 01/11/24 17:10 Ionized Calcium 1.1 mmol/L (1.1-1.4) 01/11/24 17:10 O2 Delivery Device Room air 01/11/24 17:10 Arborist Representative ID Gd 01/11/24 17:10 Sodium 121 mmol/L (136-145) L 01/11/24 17:10 Potassium 7.0 mmol/L (3.5-5.1) H* 01/11/24 17:10 Chloride 74 mmol/L (98-107) L 01/11/24 17:10 Carbon Dioxide 3 mmol/L (22-29) L* 01/11/24 17:10 Anion Gap 51.0 (5-19) H 01/11/24 17:10 BUN 42 mg/dL (6-20) H 01/11/24 17:10 Creatinine 2.9 mg/dL (0.7-1.2) H 01/11/24 17:10 GFR Calculation 26.4 mL/min (90-130) L 01/11/24 17:10 Glucose 1248 mg/dL (65-115) H* 01/11/24 17:10 Calculated Osmolality 326 mOsm/kg (285-295) H 01/11/24 17:10 Lactic Acid 8.6 mmol/L (0.5-2.2) H* 01/11/24 17:46 Calcium 9.1 mg/dL (8.5-10.5) 01/11/24 17:10 Phosphorus 11.3 mg/dL (2.5-4.5) H* 01/11/24 17:10 Magnesium 2.9 mg/dL (1.7-2.3) H 01/11/24 17:10 Total Bilirubin 0.3 mg/dL (0.15-1.2) 01/11/24 17:10 AST 13 U/L (0-40) 01/11/24 17:10 ALT 12 U/L (0-41) 01/11/24 17:10 Alkaline Phosphatase 190 U/L (40-130) H 01/11/24 17:10 Troponin T Baseline 53 ng/L (0-15) H 01/11/24 17:10 Total Protein 7.1 g/dL (6.6-8.7) 01/11/24 17:10 Albumin 4.3 g/dL (3.5-5.2) 01/11/24 17:10 Globulin 2.8 g/dL (1.3-4.6) 01/11/24 17:10 Serum Ketones Positive (Negative) H 01/11/24 17:10 All radiology interpretation(s) finalized by discharge Critical Care Time 2 Critical Care Time: Critical Care Time: Yes Total Critical Care Time: 90 Attestation: The patient was emergently evaluated this patient's presentation and case had a high probability of a clinically significant, sudden, or life-threatening deterioration of the patient's initial critical presentation or condition which required my full and direct attention, intervention and personal management. Discharge Plan Discharge Patient Disposition: Admitted As Inpatient Admit Provider: Iftikhar Soriano Clinical Impression: Acute hyperkalemia, Acute kidney injury, Metabolic acidosis, increased anion gap, Acute hyponatremia DKA (diabetic ketoacidosis) Qualifiers: Diabetes mellitus type: type 1 Diabetes mellitus complication detail: without coma Qualified Code(s): E10.10 - Type 1 diabetes mellitus with ketoacidosis without coma Altered mental status Qualifiers: Altered mental status type: somnolence Qualified Code(s): R40.0 - Somnolence Condition: Stable Coding Level of Care Code ED Application Architect for Jazmín Agosto
[2024-01-11 17:23] LABS: Arterial Blood Gas Hematocrit 38.2 % (42-52); Base Excess ABG -30.2 mmol/L (-2.0-2.0); Blood Gas Operator Identificat GD; Blood Gas Sample Site Brachial, right; Blood Gas Sample Type Arterial; Carboxyhemoglobin 0.9 %THgb (0.4-20.1); HCO3 ABG 1.5 mmol/L (22-26); HGB O2 Sat 96.6 % (95-100); Ionized Calcium Level - ABG 1.1 mmol/L (1.1-1.4); Oxygen Device ROOM AIR; Oxygen Saturation ABG 98.4; Potassium Level - ABG 7.7 mmol/L (3.5-5.0); Total Hemoglobin 12.5 g/dL (14-18)
[2024-01-11 17:24] LABS: ABG PCO2 8.1 mmHg (35-45); ABG PH Result 6.88 (7.35-7.45)
[2024-01-11] MEDS: calcium gluconate 0.1 gm/mL 10% SDV 10mL 1 GM IVP (17:32)
[2024-01-11] MEDS: insulin regular-human 100 units/1 mL 15 UNIT IVP (17:32)
[2024-01-11 17:33] LABS: Ketone (Acetest) Serum Positive (Negative)
[2024-01-11 17:41] LABS: Alanine Aminotransferase 12 U/L (0-41); Albumin Level 4.3 g/dL (3.5-5.2); Alkaline Phosphatase 190 U/L (40-130); Aspartate Amino Transferase 13 U/L (0-40); Blood Urea Nitrogen 42 mg/dL (6-20); Calcium 9.1 mg/dL (8.5-10.5); Chloride 74 mmol/L (98-107); Globulin 2.8 g/dL (1.3-4.6); Glomerular Filtration Rate 26.4 mL/min (90-130); Magnesium 2.9 mg/dL (1.7-2.3); Sodium 121 mmol/L (136-145); Total Bilirubin 0.3 mg/dL (0.15-1.2); Total Protein 7.1 g/dL (6.6-8.7)
[2024-01-11 17:43] LABS: Troponin(5th) Baseline 53 ng/L (0-15)
[2024-01-11 17:50] LABS: Creatinine Clr Calc Pharmacy 40.2588; Osmolality Calculated 326 mOsm/kg (285-295)
[2024-01-11 17:53] LABS: Carbon Dioxide 3 mmol/L (22-29); Glucose 1248 mg/dL (65-115); Phosphorus 11.3 mg/dL (2.5-4.5)
[2024-01-11 18:10] LABS: Lactic Sepsis W/Reflex 8.6 mmol/L (0.5-2.2)
[2024-01-11] MEDS: sodium bicarbonate 150 MEQ in dextrose 5% 1,000 ML 100 MEQ IV (18:35)
[2024-01-11] MEDS: sodium chloride 0.9% 1,000 ML 999 ML IV ×3 (18:52→20:43)
--- NOTE | 2024-01-11 19:04 | P.HP_ITS ---
Providers/Chief Complaint 2 Admitting Physician: Iftikhar Soriano Primary Care Provider: Adi Castellon MD Chief Complaint: HYPERGLYCEMIA History of Present Illness 28-year-old with DM1, history of recurrent DKA, was brought in after EMS was called due to tachycardia, elevated blood sugar, was found unresponsive on arrival, responsive only to painful stimuli, reportedly in wide-complex tachycardia, with tachypnea. In ER tachycardic, EKG with appearance of new left bundle branch block, however, this appears to be more so due to hyperkalemia, potassium as high as 7.7 on ABG, severe metabolic acidosis, pH 6.88, bicarb 3, anion gap 31, MICHAEL, BUN 42, creatinine 2.9. Glucose 1248. Lactic acid 8.6. Leukocytosis 33.16. Resuscitation was initiated in ER, received IV fluid boluses, 15 units regular insulin, starting on bicarb drip. Blood cultures collected. Per discussion w ER physician, empiric Zosyn. CVC placed. CXR and UA are requested. Cardiology contacted regarding poss new LBBB. He is lethargic, slightly more responsive. Denies pain. Review of Systems 2 General: Reports: ROS unobtainable due to medical condition Medications/Allergies Home Medications Medication Instructions Recorded Confirmed Last Taken Type blood-glucose meter (OneTouch #1 ea 04/02/22 12/01/23 Unknown Rx Ultra2 Meter kit) blood sugar diagnostic #300 ea 05/12/22 12/01/23 Unknown Rx lisinopril 10 mg tablet 10 mg PO DAILY #60 tabs 07/26/23 12/01/23 Unknown Rx metoprolol tartrate 25 mg tablet 25 mg PO BID@0900,2100 #60 tabs 07/26/23 12/01/23 Unknown Rx pantoprazole 40 mg tablet,delayed 40 mg PO DAILY 09/06/23 12/01/23 Unknown History release insulin aspart U-100 100 unit/mL 10 unit (0.1 mL) SUBCUT TID #15 mL 12/01/23 Unknown Rx (3 mL) subcutaneous pen (Novolog FlexPen U-100 Insulin aspart) insulin detemir U-100 100 unit/mL 30 unit (0.3 mL) SUBCUT QPM #15 mL 12/01/23 Unknown Rx (3 mL) subcutaneous pen (Levemir FlexPen) Allergies Allergy/AdvReac Type Severity Reaction Status Date / Time No Known Allergies Allergy Verified 07/25/23 16:55 PFSH Acute 2 PFSH: Medical History DKA, type 1 Nicotine dependence, cigarettes, uncomplicated Acute kidney injury Hypokalemia Metabolic acidosis Polysubstance abuse DKA (diabetic ketoacidosis) Type 1 diabetes mellitus, uncontrolled DKA (diabetic ketoacidosis) History of thyroid nodule right complex nodule, FNA showed benign 03/2022 Transaminitis Hypertension Hyperthyroidism subclinical Amphetamine abuse Long-term insulin use Diabetes type 1, uncontrolled History of DKA Surgical History No history of previous surgery none known Family History Other Family history unknown Social History Smoking and tobacco/nicotine status: current every day tobacco/nicotine user cigarettes Packs smoked per day: 1 Alcohol intake: former Substance/Drug Use: current Vitals/I&O/Wt Last Vital Signs Pulse 112 H 01/11/24 18:30 Resp 22 H 01/11/24 18:30 BP 129/82 01/11/24 18:30 Pulse Ox 89 L 01/11/24 18:30 O2 Del Method Room Air 01/11/24 17:05 01/11/24 01/11/24 01/11/24 06:59 14:59 22:59 Intake Total 1999 Balance 1999 Weight last 48 hrs Weight 74.843 kg Physical Exam 2 Const: GENERAL APPEARANCE: cooperative HENMT: MOUTH: moist mucous membranes abnormal Details: parched Neck/C-Spine: COMMON NORMALS: no JVD Resp: COMMON NORMALS: normal respiratory effort and clear to auscultation bilaterally AUSCULTATION: clear to auscultation bilaterally Cardio: COMMON NORMALS: no JVD, regular rhythm, S1 normal heart sound present, S2 normal heart sound present and No murmurs present (Cardio) RATE: t achycardic RHYTHM: regular rhythm HEART SOUNDS: S1 normal heart sound present and S2 normal heart sound present GI: COMMON NORMALS: Normal to inspection, nondistended, normoactive bowel sounds present, Soft to palpation and non-tender PALPATION: Yes Soft to palpation Extremity: COMMON NORMALS: no joint enlargement and no pedal edema Neuro: COMMON NORMALS: moves all extremities Skin: COMMON NORMALS: no rashes or lesions noted GENERAL SKIN EXAM: no rashes or lesions noted Data 01/11/24 17:10 01/11/24 19:09 Micro: Microbiology 01/11/24 18:44 Blood Culture - Preliminary Blood SPECIMEN COLLECTED 01/11/24 18:21 Blood Culture - Preliminary Blood SPECIMEN COLLECTED A&P Assessment and plan (1) DKA (diabetic ketoacidosis): Severe DKA with systemic symptoms with altered mental status, acute encephalopathy, severe hyperkalemia, hyperphosphatemia, hypomagnesemia, acute kidney injury, with severe metabolic anion gap acidosis, positive serum ketones, bicarb 3, anion gap 51. pH on ABG 6.8. Also noted cardiac demand ischemia, baseline troponin 53, 2-hour troponin 51.012. He does deny chest pain. Received 3 L of fluids so far, will give him for severe bolus, then continue NS infusion 200 mill per hour, additionally bicarb 100 mill per hour. BMP rechecked, reviewed, noted hyperkalemia is improving. Monitor on telemetry with risk of arrhythmia. Noted severely peaked T waves on presentation, as per discussion with cardiology not LBBB, T wave changes as suspected secondary to severe hyperkalemia, peaked T waves. Follow-up chemistries requested. Follow- up magnesium, phosphorus. Continue insulin drip. Target blood glucose 150-200. Switch IV fluids to D5 half-normal at 200 mL/h once blood glucose reaching below 200. CVC placed in ER, reviewed, in RA, with severe hyperkalemia at severe risk of arrhythmia, emergently repositioned. Repeat CXR obtained. Qualifiers: Diabetes mellitus complication detail: without coma Diabetes mellitus type: type 1 Qualified Code(s): E10.10 - Type 1 diabetes mellitus with ketoacidosis without coma (2) Acute kidney injury: Likely prerenal combination of DKA, dehydration/hypovolemia but also hypotension/hypoperfusion. Receiving fluid challenge. Follow-up renal function. Discussed with his mother may be at risk of acute renal failure depending on severity of injury, possibility of ATN, also with history of recurrent MICHAEL. At risk of CKD. (3) Acute hyperkalemia: Potassium as high as 7. Severely peaked T waves. Insulin drip. IVF. Bicarb drip. Recheck obtained, improving down to 5.6. Elevated risk of arrhythmia. Monitor on telemetry. Reassessment chemistry is requested. (4) EKG, abnormal: Initially concern for possible wide-complex tachycardia by EMS, on presentation here noted concern for possibly new LBBB, on discussion with cardiology changes are unlikely due to severe hyperkalemia including severely peaked T waves. Complete troponin EKG series. Monitor on telemetry. (5) Hypotension: Hypotension on presentation, initial blood pressure as low as 86/40. Received 3 L fluid boluses, severely dehydrated/hypovolemic. Additional 1 L bolus, continue NS infusion 200 mL/h, bicarb infusion 100 mill per hour. Monitor vitals. Anticipate should improve without requiring pressors. (6) Leukocytosis: Suspect secondary to severe dehydration, severe DKA, however, cannot entirely exclude infection, sepsis, chest x-ray and UA have been requested. On my interpretation chest x-ray clear, without sign of pneumonia. UA pending. Blood cultures have been collected. Empirically on Zosyn for now. Anticipate to hopefully be able to de-escalate antibiotics quickly. Plan Acute metabolic encephalopathy: Lethargic, initially responsive only to painful stimuli, secondary to severe DKA, metabolic derangements including MICHAEL, multiple electrolyte abnormalities. History of substance use, UDS is pending. HTN: Hold lisinopril with MICHAEL. Currently blood pressure is not elevated with dehydration, DKA. Hypotensive on presentation, hold metoprolol for now as well. Resume if blood pressure stabilizes. Discussed all the above with his mother at bedside. Attestations 2 Medical Necessity Statement*: Admission of over 2 midnights anticipated for assessment and management of DKA with severe electrolyte derangements including severe hyperkalemia, MICHAEL. Coding Level of Care Code Critical Care >/= 30 minutes Critical care time (in minutes): 60 The high probability of a clinically significant, sudden or life threatening deterioration, as referenced in this documentation, required my full and direct attention, intervention and personal management. The critical care time shown is in addition to time spent performing any reported separately billable procedures and includes the following: [x] Data and vital sign review and interpretation [x ] Patient assessment, examination and intervention [x] Medication orders and management [x] Patient/Family updates as able [x] Care Coordination and Documentation. Diagnoses DKA (diabetic ketoacidosis) E10.10 Diabetes mellitus complication detail: without coma Diabetes mellitus type: type 1 Acute kidney injury N17.9 Acute hyperkalemia E87.5 EKG, abnormal R94.31 Hypotension I95.9 Leukocytosis D72.829
[2024-01-11] MEDS: piperacillin-tazobactam 3.375 GM in sodium chloride 0.9% (plus) 50 ML IV (19:07)
--- NOTE | 2024-01-11 19:10 | ECG_ITS ---
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 Measurements Intervals [place] Rate: 113 P: 80 MS: 181 QRS: 69 QRSD: 89 T: 65 QT: 326 QTc: 447 Interpretive Statements SINUS TACHYCARDIA SEPTAL MYOCARDIAL INFARCTION , OF INDETERMINATE AGE [40+ ms Q WAVE IN V1/V2] Compared to ECG 01/11/2024 17:08:23 Myocardial infarct finding now present First degree AV block no longer present Atrial abnormality no longer present Left bundle-branch block no longer present Electronically Signed On 01-12-2024 18:56:41 CDT by Bishnu Dennis M.D. [email or web address]
[2024-01-11 19:11] LABS: Amphetamines Screen Urine Negative (Negative); Barbiturates Screen Urine Negative (Negative); Benzodiazepines Screen Urine Negative (Negative); Cocaine Screen Urine Negative (Negative); Opiate Screen Urine Negative (Negative); PCP Screen Urine Negative (Negative); THC Screen Urine Negative (Negative)
[2024-01-11] MEDS: INSULIN REGULAR IN 0.9 % NACL 100 UNIT/100 ML BAG 6.5 UNIT IV (19:15)
[2024-01-11 19:20] LABS: Add Urine Microscopic? YES; Bacteria Urine TRACE /hpf; Bilirubin Urine Neg (Negative); Blood Urine 2+ (Negative); Fine Granular Casts Urine 0-4 /lpf; Glucose Urine UA 4+ (Normal); Ketones Urine 2+ (Negative); Leukocyte Esterase Urine Negative (Negative); Mucus Urine 1+ /hpf; Nitrate Urine Negative (Negative); Protein Urine 1+ (Negative); RBC Urine 0-4 /hpf (0-2); Specific Gravity, Urine 1.015 (1.005-1.030); Squamous Epithelial Cell Urine 0-4 /hpf (0-5); Urine Appearance Clear (CLEAR); Urine Color Yellow (Yellow); Urobilinogen Urine Neg (Negative); WBC Urine 0-4 /hpf (0-5); pH Urine 5 (5-7)
[2024-01-11 19:33] LABS: Alanine Aminotransferase 14 U/L (0-41); Albumin Level 3.6 g/dL (3.5-5.2); Alkaline Phosphatase 153 U/L (40-130); Anion Gap 41.6 (5-19); Aspartate Amino Transferase 19 U/L (0-40); Blood Urea Nitrogen 39 mg/dL (6-20); Chloride 91 mmol/L (98-107); Creatinine Clr Calc Pharmacy 50.7611; Globulin 2.1 g/dL (1.3-4.6); Glomerular Filtration Rate 34.5 mL/min (90-130); Magnesium 2.6 mg/dL (1.7-2.3); Potassium 5.6 mmol/L (3.5-5.1); Sodium 130 mmol/L (136-145); Total Bilirubin 0.2 mg/dL (0.15-1.2); Total Protein 5.7 g/dL (6.6-8.7)
[2024-01-11 19:36] LABS: Reflex Lactate Order REFLEX LACTIC ORDERD
[2024-01-11 19:42] LABS: Osmolality Calculated 320 mOsm/kg (285-295)
[2024-01-11 19:49] LABS: Carbon Dioxide 3 mmol/L (22-29); Glucose 830 mg/dL (65-115); Phosphorus 8.2 mg/dL (2.5-4.5)
[2024-01-11 20:00] LABS: Troponin 5 2HR 51.02 ng/L (0-15); Troponin 5 2HR Delta -1.98 ABS# (0-10)
--- NOTE | 2024-01-11 20:11 | XRR_ITS ---
PROCEDURE INFORMATION: Exam: XR Chest Exam date and time: 01/11/2024 7:16 PM Age: 28 years old Clinical indication: Other vascular access device placement or adjustment; Central line, non-tunnelled; Patient HX: Central line adjustment TECHNIQUE: Imaging protocol: Radiologic exam of the chest. Views: 1 view. COMPARISON: CR (CHEST, ) 01/11/2024 6:26 PM FINDINGS: Tubes, catheters and devices: Repositioning of right central line now terminating in the mid SVC. Lungs: Unremarkable. No consolidation. Pleural spaces: Unremarkable. No pleural effusion. No pneumothorax. Heart/Mediastinum: Unremarkable. No cardiomegaly. Bones/joints: Unremarkable. XR/XR chest 1V portable [id number] IMPRESSION: Right central line in proper positioning in the mid SVC.
[2024-01-11] MEDS: enoxaparin 40 mg/0.4 mL Syringe SUBCUT (20:19)
[2024-01-11] MEDS: pantoprazole 40 mg SDV IVP (20:19)
[2024-01-11 20:29] LABS: Glucose Point of Care > 600 mg/dL (70-110)
[2024-01-11 20:29] LABS: Glucose Point of Care > 600 mg/dL (70-110)
--- NOTE | 2024-01-11 20:35 | PC.NURSE ---
Central line Adjustment Dr. Soriano at bedside to adjust central line placement; verbal order received for 2% lidocaine to be used for procedure. Chest xray obtained following adjustment. Telephone confirmation from Dr. Soriano received verifying new position. See MAR for details.
[2024-01-11 21:07] LABS: Lactic Acid level (Lactate) 3.3 mmol/L (0.5-2.2)
[2024-01-11 21:08] LABS: Blood Gas Allen Test Pos; Blood Gas Operator Identificat JB; Blood Gas Sample Site Radial, right; Blood Gas Sample Type Arterial; Oxygen Device ROOM AIR
[2024-01-11 21:19] LABS: Glucose 664 mg/dL (65-115)
[2024-01-11 21:22] LABS: Arterial Blood Gas Hematocrit 36.1 % (42-52); Base Excess ABG -19.1 mmol/L (-2.0-2.0); HCO3 ABG 6.9 mmol/L (22-26); PO2 ABG 51.7 mmHg (80.0-100.0)
[2024-01-11 21:24] LABS: ABG PCO2 17.7 mmHg (35-45)
--- NOTE | 2024-01-11 21:40 | PC.NURSE ---
Patient's blood glucose dropped from 830 to 664 in approximately 1.5 hours, Dr. Mosley was notified of patient's potassium and CO2 level and gave telephone orders to titrate insulin drip to 9 units/hr without a bolus.
[2024-01-11] MEDS: sodium chloride 0.9% 1,000 ML 200 ML IV (22:04)
--- NOTE | 2024-01-11 22:13 | PC.NURSE ---
Dr. Soriano gave verbal orders to start a 1000mL bolus of NS, after bolus start NS at 200mL/hr. Dr. Soriano verified the bicarb to continue running at 100mL/hr for a total of 300mL/hr of intake.
[2024-01-11] MEDS: lidocaine 2% INJ 20 mL MDV (mL) INJECTION (22:27)
[2024-01-11 22:52] LABS: Glucose Point of Care 407 mg/dL (70-110)
--- NOTE | 2024-01-11 23:06 | PC.NURSE ---
Patient's blood glucose dropped from 664 to 407 in approximately [address] Mosley was notified and gave telephone orders to keep insulin drip running at 9 units/hr.
--- NOTE | 2024-01-11 23:10 | ECG_ITS ---
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 Measurements Intervals [place] Rate: 123 P: 83 MO: 140 QRS: 71 QRSD: 89 T: 80 QT: 346 QTc: 497 Interpretive Statements SINUS TACHYCARDIA ABNORMAL RHYTHM ECG Compared to ECG 01/11/2024 18:46:15 Myocardial infarct finding no longer present Electronically Signed On 01-12-2024 18:56:53 CDT by Bishnu Dennis M.D. [id number]
[2024-01-11 23:31] LABS: Glucose Point of Care 434 mg/dL (70-110)
[2024-01-11 23:34] LABS: Blood Urea Nitrogen 33 mg/dL (6-20); Carbon Dioxide 12 mmol/L (22-29); Chloride 103 mmol/L (98-107); Creatinine Clr Calc Pharmacy 61.2222; Glomerular Filtration Rate 45.8 mL/min (90-130); Glucose 400 mg/dL (65-115); Osmolality Calculated 306 mOsm/kg (285-295); Sodium 136 mmol/L (136-145)
[2024-01-12] VITALS (42 sets, daily range): BP systolic 112–168; BP diastolic 54–105; PULSE 108–124; RESP 0–30; TEMP 36.7–36.9; O2SAT 88–98; BMI 21.3
[2024-01-12 00:31] LABS: Glucose Point of Care 257 mg/dL (70-110)
[2024-01-12] MEDS: lidocaine 1% 5 ML in potassium chloride premix 100 ML 25 ML IV (00:40)
--- NOTE | 2024-01-12 00:54 | PC.NURSE ---
Lovenox Patient's 6 hour troponin 148 with a critical delta of 95. Dr. Mosley notified; telephone order received to administer 25 mg lovenox subq once now and change daily dose to 65 mg subq lovenox q12h. See MAR for details.
--- NOTE | 2024-01-12 00:57 | PC.NURSE ---
Patient's blood glucose dropped from 434 to 257 in approximately one hour. Dr. Mosley was notified of patient's glucose, potassium, and anion gap and gave telephone orders to start the ordered KCL and decrease insulin drip to 9 units/hr.
[2024-01-12] MEDS: enoxaparin 100 mg/mL Syringe 25 MG SUBCUT (01:15)
[2024-01-12 01:28] LABS: Glucose Point of Care 198 mg/dL (70-110)
[2024-01-12] MEDS: dextrose 5%-sod chloride 0.45% 1,000 ML 200 ML IV (01:40)
[2024-01-12 02:38] LABS: Glucose Point of Care 199 mg/dL (70-110)
[2024-01-12 03:23] LABS: Blood Urea Nitrogen 28 mg/dL (6-20); Calcium 7.8 mg/dL (8.5-10.5); Carbon Dioxide 21 mmol/L (22-29); Chloride 109 mmol/L (98-107); Creatinine Clr Calc Pharmacy 78.7143; Glomerular Filtration Rate 61.3 mL/min (90-130); Glucose 208 mg/dL (65-115); Osmolality Calculated 302 mOsm/kg (285-295); Sodium 140 mmol/L (136-145)
[2024-01-12 03:33] LABS: Glucose Point of Care 191 mg/dL (70-110)
[2024-01-12] MEDS: insulin glargine 100 units/1 mL 30 UNIT SUBCUT ×2 (03:59→20:57)
--- NOTE | 2024-01-12 04:22 | PC.NURSE ---
Dr. Mosley was updated on patient's newest lab results and gave a telephone orders to give lantus 30 units, DC sodium bicarb, insulin drip, and D5 when two hours have passed from giving lantus. Then start insulin per medium sliding scale ACHS.
[2024-01-12 04:26] LABS: Basophils % 0.2 %; Hematocrit 32.2 % (37-53); Lymphocytes % 10.8 %; Mean Corpuscular HGB Conc 33.9 g/dL (30-55); Mean Corpuscular Volume 79.9 fl (82-101); Mean Platelet Volume 11.2 fL (7.4-10.4); Monocytes % 10.7 %; Neutrophils # 14.45 10^3/uL (1.8-7.7); Neutrophils % 77.7 %; Nucleated Red Blood Cells % 0 %; Platelet Count 260 10^3/cmm (157-399); Red Blood Count 4.03 10^6/uL (3.85-5.65); Red Cell Distribution Width 13.5 % (12.1-15.1); White Blood Count 18.62 10^3/uL (3.29-11.43)
[2024-01-12 04:46] LABS: Alanine Aminotransferase 10 U/L (0-41); Albumin Level 3.1 g/dL (3.5-5.2); Alkaline Phosphatase 98 U/L (40-130); Anion Gap 16.1 (5-19); Aspartate Amino Transferase 18 U/L (0-40); Blood Urea Nitrogen 26 mg/dL (6-20); Calcium 7.7 mg/dL (8.5-10.5); Carbon Dioxide 21 mmol/L (22-29); Chloride 107 mmol/L (98-107); Creatinine Clr Calc Pharmacy 84.7692; Globulin 1.8 g/dL (1.3-4.6); Glomerular Filtration Rate 66.7 mL/min (90-130); Glucose 250 mg/dL (65-115); Osmolality Calculated 303 mOsm/kg (285-295); Phosphorus 2.3 mg/dL (2.5-4.5); Potassium 4.1 mmol/L (3.5-5.1); Sodium 140 mmol/L (136-145); Total Bilirubin 0.4 mg/dL (0.15-1.2); Total Protein 4.9 g/dL (6.6-8.7)
[2024-01-12 05:45] LABS: Glucose Point of Care 249 mg/dL (70-110)
[2024-01-12 05:45] LABS: Glucose Point of Care 207 mg/dL (70-110)
--- NOTE | 2024-01-12 07:50 | PC.PHAR ---
PT STATES IS ONLY TAKING INSULIN. PREVIOUS HISTORY OF LISINOPRIL 10MG DAILY, METOPROLOL TARTRATE 25MG DAILY AND PANTOPRAZOLE 40MG DAILY. REMOVED FROM MED LIST. 01/12/24
[2024-01-12] MEDS: insulin lispro 100 unit/1 mL SUBCUT ×2 (08:04→20:57)
--- NOTE | 2024-01-12 10:59 | PC.NURSE ---
attempt to converse with pt about suicide risk and diabetes education will respond on one word then close eyes does not want to interact with staff .. this am did sit up drink diet soda
[2024-01-12] MEDS: aspirin 325 mg Tablet PO (11:03)
[2024-01-12 11:30] LABS: Glucose Point of Care 107 mg/dL (70-110)
[2024-01-12 11:30] LABS: Glucose Point of Care 330 mg/dL (70-110)
--- NOTE | 2024-01-12 12:17 | P.PN_ITS ---
Vitals/I&O/Wt Last Vital Signs Temp 98.4 F 01/12/24 04:00 Pulse 116 H 01/12/24 08:00 Resp 23 H 01/12/24 08:00 BP 139/78 01/12/24 08:00 Pulse Ox 97 01/12/24 08:00 O2 Del Method Room Air 01/12/24 04:00 01/11/24 01/12/24 01/12/24 22:59 06:59 14:59 Intake Total 3065.167 / 3065.167 3141.849 / 6207.016 240 / 240 Output Total 1000 / 1000 850 / 1850 Balance 2065.167 / 2065.167 2291.849 / 4357.016 240 / 240 Weight last 48 hrs Weight 67.518 kg Weight 64.5 kg Weight 74.843 kg Physical Exam 2 Const: GENERAL APPEARANCE: cooperative HENMT: MOUTH: moist mucous membranes abnormal Details: parched Neck/C-Spine: COMMON NORMALS: no JVD Resp: COMMON NORMALS: normal respiratory effort and clear to auscultation bilaterally AUSCULTATION: clear to auscultation bilaterally Cardio: COMMON NORMALS: no JVD, regular rhythm, S1 normal heart sound present, S2 normal heart sound present and No murmurs present (Cardio) RATE: t achycardic RHYTHM: regular rhythm HEART SOUNDS: S1 normal heart sound present and S2 normal heart sound present GI: COMMON NORMALS: Normal to inspection, nondistended, normoactive bowel sounds present, Soft to palpation and non-tender PALPATION: Yes Soft to palpation Extremity: COMMON NORMALS: no joint enlargement and no pedal edema Neuro: COMMON NORMALS: moves all extremities Skin: COMMON NORMALS: no rashes or lesions noted GENERAL SKIN EXAM: no rashes or lesions noted Data 01/12/24 04:10 01/12/24 04:10 Micro: Microbiology 01/11/24 18:44 Blood Culture - Preliminary Blood SPECIMEN COLLECTED 01/11/24 18:21 Blood Culture - Preliminary Blood SPECIMEN COLLECTED A&P Assessment and plan (1) NSTEMI (non-ST elevated myocardial infarction): Moderate troponin elevation baseline 2 hours, but with positive delta rise of troponin 6 hours up to 95. This is also the first time his troponins were ever this elevated. Discussed with him. Discussed concern for possible type I NSTEMI. He has been anticoagulated with Lovenox, had 325 mg aspirin. Check lipid profile. Monitor on telemetry due to risk of arrhythmia. Discussed with him need for additional assessment including echocardiogram to assess myocardial function, as well as stress test to further assess perfusion. This is requested for tomorrow as he does have history of leaving the hospital prematurely. As per discussion with him he verbalized understanding regarding that concerns and need for the additional assessment, and is agreeable to continue hospitalization and proceed. Discussed with him risk of NSTEMI among other risks with DKA. (2) DKA (diabetic ketoacidosis): Reviewed vitals, CBC, Giancarlo ABG from last night, CMP, noted DKA with improvement, anion gap down to 16, bicarb 21, bicarb drip and IV fluids has been discontinued, he has been transition to subcu insulin. Reviewed renal function, lactic acid, troponin series. Noted possible type I NSTEMI as above. Reviewed UA, chest x-ray, not suggestive of acute infection. Continue subcutaneous insulin. Recheck labs as may be at risk of rebound, noted some worsening of anion gap today of 16.1. Recheck magnesium, phosphorus. Follow-up with endocrinology. Remove CVC if continues to do well. Qualifiers: Diabetes mellitus complication detail: without coma Diabetes mellitus type: type 1 Qualified Code(s): E10.10 - Type 1 diabetes mellitus with ketoacidosis without coma (3) Acute kidney injury: Reviewed BUN, creatinine, electrolytes, Giurgius balance. Noted to gradually improving renal function, BUN down to 26, creatinine down to 1.3. Follow-up renal function. Likely prerenal combination of DKA, dehydration/hypovolemia but also hypotension/hypoperfusion. Receiving fluid challenge. Follow-up renal function. Discussed with his mother may be at risk of acute renal failure depending on severity of injury, possibility of ATN, also with history of recurrent MICHAEL. At risk of CKD. (4) Acute hyperkalemia: Reviewed potassium, down to 4.1. On presentation potassium as high as 7. Severely peaked T waves. Insulin drip. IVF. Bicarb drip. Recheck obtained, improving down to 5.6. Reassessment chemistry is requested. (5) EKG, abnormal: Initially concern for possible wide-complex tachycardia by EMS, on presentation here noted concern for possibly new LBBB, on discussion with cardiology changes are unlikely due to severe hyperkalemia including severely peaked T waves. Complete troponin EKG series. Monitor on telemetry. (6) Hypotension: Resolved. Hypotension on presentation, initial blood pressure as low as 86/40. Received 3 L fluid boluses, severely dehydrated/hypovolemic. Additional 1 L bolus, continue NS infusion 200 mL/h, bicarb infusion 100 mill per hour. Monitor vitals. Anticipate should improve without requiring pressors. (7) Leukocytosis: Reviewed CBC. Improving, suspect combination hemoconcentration, stress-induced with DKA, lower likelihood of acute infection, for now continue empirically on Zosyn. Follow-up blood cultures. Reviewed UA, chest x-ray. Repeat CBC. Suspect secondary to severe dehydration, severe DKA, however, cannot entirely exclude infection, sepsis, chest x-ray and UA have been requested. On my interpretation chest x-ray clear, without sign of pneumonia. UA pending. Blood cultures have been collected. Empirically on Zosyn for now. Anticipate to hopefully be able to de-escalate antibiotics quickly. Plan Acute metabolic encephalopathy: Resolving, she is still somewhat somnolent, minimally slow responses but is otherwise lucid, insight into condition, but overall much better. Resolving metabolic encephalopathy. Reassess chemistry. Continue to monitor vitals. Reorient. Lethargic, initially responsive only to painful stimuli, secondary to severe DKA, metabolic derangements including MICHAEL, multiple electrolyte abnormalities. History of substance use, UDS is pending. HTN: Hold lisinopril with MICHAEL. Currently blood pressure is not elevated with dehydration, DKA. Hypotensive on presentation, hold metoprolol for now as well. Resume if blood pressure stabilizes. Smoking: Discussed with him regarding smoking, nicotine patches, lozenges available for him cravings. Attestations 2 Medical Necessity Statement*: Continue admission for assessment management following DKA, MICHAEL, assessment of NSTEMI. and High MDM includes number and complexity of problems actively addressed during encounter as documented Diagnoses NSTEMI (non-ST elevated myocardial infarction) I21.4 DKA (diabetic ketoacidosis) E10.10 Diabetes mellitus complication detail: without coma Diabetes mellitus type: type 1 Acute kidney injury N17.9 Acute hyperkalemia E87.5 EKG, abnormal R94.31 Hypotension I95.9 Leukocytosis D72.829
[2024-01-12] MEDS: enoxaparin 80 mg/0.8 mL Syringe 65 MG SUBCUT (13:34)
--- NOTE | 2024-01-12 15:06 | PC.NURSE ---
report called to [facility] and transfered room 108
[2024-01-12 17:10] LABS: Glucose Point of Care 138 mg/dL (70-110)
[2024-01-12 20:09] LABS: Glucose Point of Care 282 mg/dL (70-110)
[2024-01-12] MEDS: pantoprazole 40 mg SDV IVP (20:56)
[2024-01-13] VITALS (21 sets, daily range): BP systolic 124–181; BP diastolic 63–119; PULSE 89–121; RESP 10–23; TEMP 36.6–37; O2SAT 91–97
[2024-01-13] MEDS: enoxaparin 80 mg/0.8 mL Syringe 65 MG SUBCUT ×2 (01:16→14:15)
[2024-01-13 04:55] LABS: Basophils % 0.3 %; Eosinophils % 0.3 %; Hematocrit 35.4 % (37-53); Lymphocytes # 2.2 10^3/uL (0.8-4.8); Lymphocytes % 18.4 %; Mean Corpuscular HGB Conc 33.1 g/dL (30-55); Mean Corpuscular Volume 81.6 fl (82-101); Mean Platelet Volume 11.3 fL (7.4-10.4); Monocytes % 8.4 %; Neutrophils # 8.61 10^3/uL (1.8-7.7); Neutrophils % 72.3 %; Nucleated Red Blood Cells % 0 %; Platelet Count 233 10^3/cmm (157-399); Red Blood Count 4.34 10^6/uL (3.85-5.65); Red Cell Distribution Width 14.5 % (12.1-15.1); White Blood Count 11.91 10^3/uL (3.29-11.43)
[2024-01-13 05:15] LABS: Alanine Aminotransferase 8 U/L (0-41); Albumin Level 3.1 g/dL (3.5-5.2); Alkaline Phosphatase 102 U/L (40-130); Aspartate Amino Transferase 14 U/L (0-40); Blood Urea Nitrogen 12 mg/dL (6-20); Calcium 8.1 mg/dL (8.5-10.5); Carbon Dioxide 29 mmol/L (22-29); Chloride 102 mmol/L (98-107); Creatinine Clr Calc Pharmacy 140.1393; Globulin 1.9 g/dL (1.3-4.6); Glomerular Filtration Rate 116.9 mL/min (90-130); Glucose 97 mg/dL (65-115); Magnesium 1.8 mg/dL (1.7-2.3); Osmolality Calculated 290 mOsm/kg (285-295); Phosphorus 2.2 mg/dL (2.5-4.5); Sodium 140 mmol/L (136-145); Total Bilirubin 0.2 mg/dL (0.15-1.2)
[2024-01-13 05:16] LABS: Chol HDL Ratio 2.91 mg/dL (1.0-5.00); Cholesterol 125 mg/dL (0-200); HDL Cholesterol 43 mg/dL (60-100); LDL Cholesterol Calculated 50 mg/dL (50-129); Triglycerides 159 mg/dL (0-150); VLDL Cholestrol Calculation 32 mg/dL (0-30)
[2024-01-13 05:21] LABS: Procalcitonin 2.96 ng/mL (0-0.5)
[2024-01-13 06:27] LABS: Glucose Point of Care 98 mg/dL (70-110)
[2024-01-13] MEDS: regadenoson 0.4 Mg/5 ml Syringe 0.400000000000000022 MG IVP (08:28)
--- NOTE | 2024-01-13 09:00 | ECG_ITS ---
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 Interpretive Statements NAME OF STUDY: LEXISCAN SESTAMIBI STRESS TEST INDICATION: [NONSTEMI] Procedure: At the baseline, the blood pressure was 145/75 mmHg with a heart rate of 111 bpm. The electrocardiogram showed sinus tachycardia, normal axis with normal ST and T's. The Lexiscan was infused over a period of 20 seconds. A total of 0.4 mg of Lexiscan was infused. The stress phase was continued for a total of 5 minutes. Heart rate was at the end of stress phase was 126 bpm and a blood pressure of 114/59 mmHg. The EKG at the peak infusion revealed sinus tachycardia with no significant ST-T wave changes. Sestamibi was injected 20 seconds after the Lexiscan infusion. Blood pressure at the end of recovery phase was 124/63 mmHg with a heart rate of 121 bpm. Conclusion: 1. Normal EKG response to Lexiscan infusion 2. No Lexiscan induced chest pain or cardiac arrhythmia. 3. Normal blood pressure and heart rate response. 4. Sestamibi/sestamibi perfusion scan pending; see separate report. Electronically Signed On 01-30-2024 6:54:54 CDT by Aime Calle M.D. [id number]
--- NOTE | 2024-01-13 09:30 | USCV_ITS ---
Jean Miller Age: 28 Gender: M : 1995 Exam Date: 01/13/2024 10:13 Ordering Phys: Iftikhar Soriano MD Technologist: Exam Location: [facility] [place] Indication: nstemi BP: 160 / 105 HR: 97 Rhythm: Sinus Technical Quality: Adequate MEASUREMENTS (Male / Female) Normal Values 2D ECHO LV Diastolic Diameter PLAX 3.5 cm 4.2 - 5.9 / 3.9 - 5.3 cm IVS Diastolic Thickness 1.1 cm 0.6 - 1.0 / 0.6 - 0.9 cm IVS Systolic Thickness 1.5 cm LVPW Diastolic Thickness 1.2 cm 0.6 - 1.0 / 0.6 - 0.9 cm LVPW Systolic Thickness 1.7 cm LVOT Diameter 2.0 cm LV Ejection Fraction 2D Teich 42.4 % LV Ejection Fraction MOD 2C 75.6 % LV Ejection Fraction 2C AL 74.0 % LA Diameter 2.7 cm RA Systolic Volume 4C AL 21.4 ml RA Systolic Volume 4C MOD 20.5 ml Aorta at Sinotubular Diameter 2.9 cm IVC Diameter 1.5 cm M-MODE LA Ao Ratio MM 1.0 AV Cusp Separation MM 2.3 cm DOPPLER AV Peak Velocity 121.7 cm/s LVOT Peak Velocity 80.0 cm/s AV Area Cont Eq vti 2.7 cm squared AV Area Cont Eq pk 2.1 cm squared MV Peak Velocity 88.0 cm/s MV Area PHT 7.4 cm squared Mitral E to A Ratio 1.0 TV Peak Velocity 134.0 cm/s TR Peak Velocity 140.0 cm/s TR Peak Gradient 7.8 mmHg TV Peak E Velocity 111.0 cm/s Right Atrial Pressure 3.0 mmHg Pulmonary Artery Systolic Pressu 10.8 mmHg PV Peak Velocity 101.0 cm/s FINDINGS Left Ventricle Vertical is normal in size. LV systolic function is normal with EF 60-65%. No regional wall motion abnormalities are seen. Right Ventricle Normal in size and function Right Atrium Normal in size Left Atrium Normal in size Mitral Valve Structurally normal mitral valve. Trace mitral regurgitation. Aortic Valve Structurally normal aortic valve. No significant stenosis or regurgitation. Tricuspid Valve Trace tricuspid regurgitation. Insufficient TR jet to evaluate RVSP Pulmonic Valve Not well visualized Pericardium Normal Aorta Normal in size IVC Appears to be normal CONCLUSIONS LV systolic function is normal with EF of 60-65% Trace mitral regurgitation Trace tricuspid regurgitation Compared to prior echocardiogram from 2021, no significant changes are seen. Aime Calle MD (Electronically Signed) Final Date: 13 January 2024 11:26 S
--- NOTE | 2024-01-13 09:32 | PC.CHAP ---
Pastoral Care Encounter/Spiritual Assessment Type of Contact [] Declined support clerk visit [] Patient/Family/Request visit [] Outpatient visit [] Follow-up visit [] Physician referral [] Code/Alert [x] Routine visit [] Staff referral [] Actively dying [] Patient sleeping [] Family support [] [] Out of room [] Palliative care [] [] Receiving care in room [] Pre-surgical visit [] Trauma [] Long length of stay [] ICU visit [] Other: Relational/Emotional Strength [] Patient feels connected with others/family/visitors/staff [] Distress [] Loneliness/isolation [] Abandonment Spirituality of Patient [] Person of Lea [] Attends Zoroastrianism of their Lea [] Believes in Prayer [] Reads Bible or Restoration materials [] There are Spiritual issues to be addressed Reproducer Interventions [x] Prayer [] Active listening [] Non-anxious presence [] Spiritual/emotional support [] Crisis/trauma care [] Spiritual counseling [] Bereavement support [] Provided bereavement packet [] Provided Bible/devotional materials [] Provided toy/stuffed animal, coloring book to patient or family member [] Provided Communion [] Anointing/[place] [] Salvation [] Completed spiritual assessment [] Other: Impact on Illness or Injury [] Angry [] Fearful [] Anxious [] Often cries [] Exhaustion [] Unable to work [] Unable to attend taoist [] Unable to walk/stand [] Unable to read [] Unable to drive [] Unable to eat/drink [] Unable to sleep [] Unable to be with family [] Patient intubated [] Other: Summary not in room Time spent with patient
[2024-01-13] MEDS: aspirin 325 mg Tablet PO (09:49)
[2024-01-13 11:37] LABS: Glucose Point of Care 270 mg/dL (70-110)
[2024-01-13] MEDS: sodium chloride 0.9% 1,000 ML 50 ML IV (11:53)
[2024-01-13] MEDS: insulin lispro 100 unit/1 mL SUBCUT ×2 (11:53→17:46)
[2024-01-13] MEDS: potassium chloride ER 20 mEq Tablet 40 MEQ PO (11:53)
[2024-01-13] MEDS: metoprolol tartrate 25 mg Tablet PO ×2 (12:00→21:26)
--- NOTE | 2024-01-13 12:12 | NMCV_ITS ---
NM bala perf SPECT r/s* [id number] Jean Miller Age: 28 Gender: M : 1995 Exam Date: 01/13/2024 06:53 Ordering Phys: Iftikhar Soriano MD Technologist: MOUNA Guzman Exam Location: [facility] Indications: CHEST PAIN STRESS TEST Please see separate stress test report in [facility] for full findings IMAGE PROTOCOL Rest/Stress 1 Lexiscan Day Radiopharmaceutical Dose (mCi) Administration Site Administered by Rest: Tc-99m 10.7 IV MOUNA Renteria Sestamibi Stress:Tc-99m 32.8 IV MOUNA Renteria Sestamibi Rest: 13-Jan-2024 60 Discovery 630 Stress: 13-Jan-2024 30 Discovery 630 0.4mg Lexiscan. Supine position only as patient was unable to lay prone. SPECT RESULTS Technical Quality: Excellent Raw Data Analysis: Normal Image Corrections: No attenuation or motion correction applied Summed Stress Score: 0 Summed Rest Score: 0 Summed Difference Score: 0 PERFUSION FINDINGS Fairly uniform myocardial tracer uptake. No significant perfusion abnormalities are noted FUNCTIONAL RESULTS (calculated via Gated SPECT) Stress Image LV EF (%): 88 Stress EDV (mL):65 TID: 0.79 Stress ESV (mL):8 FUNCTIONAL FINDINGS: Segmental wall motion analysis revealing no gross wall motion abnormalities IMPRESSIONS 1. Myocardial perfusion imaging revealing uniform myocardial tracer uptake with no significant perfusion abnormalities. 2. Segmental wall motion analysis revealing no gross wall motion abnormalities 3. LV ejection fraction of 88%. 4. Normal LV volume. Low probability for coronary ischemia, based on the above findings No similar previous studies are available for comparison Dr Bishnu Dennis MD [facility] (Electronically Signed) Final Date: 13 January 2024 13:00 S
[2024-01-13] MEDS: potassium phosphate (mEq K) 40 MEQ in sodium chloride 0.9% (100 ml) 100 ML 27.2699999999999996 MEQ IV (14:16)
[2024-01-13] MEDS: potassium chloride ER 20 mEq Tablet 80 MEQ PO (14:17)
--- NOTE | 2024-01-13 14:20 | P.PN_ITS ---
Subjective 2 Subjective: Hospital course, labs appreciated. Examination patient laying reclined at, sleeping but wakes up to verbal stimulus. Seen after Lexiscan stress test. Denies any nausea, vomiting, headache. Has remained hypertensive. Slightly tachycardic. Denies any difficulty in breathing. Tolerating diet. Vitals/I&O/Wt Last Vital Signs Temp 97.8 F 01/13/24 08:00 Pulse 112 H 01/13/24 11:00 Resp 10 L 01/13/24 11:00 BP 181/119 01/13/24 11:00 Pulse Ox 96 01/13/24 11:00 O2 Del Method Room Air 01/13/24 04:00 01/12/24 01/13/24 01/13/24 22:59 06:59 14:59 Intake Total 340 / 820 480 / 1300 480 / 480 Output Total 925 / 925 0 / 925 200 / 200 Balance -585 / -105 480 / 375 280 / 280 Weight last 48 hrs Weight 68.946 kg Weight 67.518 kg Weight 64.5 kg Weight 74.843 kg Physical Exam 2 Const: GENERAL APPEARANCE: cooperative HENMT: MOUTH: moist mucous membranes abnormal Details: parched Neck/C-Spine: COMMON NORMALS: no JVD Resp: COMMON NORMALS: normal respiratory effort and clear to auscultation bilaterally AUSCULTATION: clear to auscultation bilaterally Cardio: COMMON NORMALS: no JVD, regular rhythm, S1 normal heart sound present, S2 normal heart sound present and No murmurs present (Cardio) RATE: t achycardic RHYTHM: regular rhythm HEART SOUNDS: S1 normal heart sound present and S2 normal heart sound present GI: COMMON NORMALS: Normal to inspection, nondistended, normoactive bowel sounds present, Soft to palpation and non-tender PALPATION: Yes Soft to palpation Extremity: COMMON NORMALS: no joint enlargement and no pedal edema Neuro: COMMON NORMALS: moves all extremities Skin: COMMON NORMALS: no rashes or lesions noted GENERAL SKIN EXAM: no rashes or lesions noted Data 01/13/24 04:23 01/13/24 04:23 Micro: Microbiology 01/11/24 18:44 Blood Culture - Preliminary Blood NEGATIVE TO DATE 01/11/24 18:21 Blood Culture - Preliminary Blood NEGATIVE TO DATE A&P Assessment and plan (1) NSTEMI (non-ST elevated myocardial infarction): No active chest pain. Elevated troponins on admission. Most likely in setting of non-ST elevation MA versus demand ischemia. Found to have LBBB on admission. Underwent Lexiscan stress test. Will await results. Appreciate A1c, lipid panel. Change aspirin to 81 mg daily, continue with statin 20 mg daily. Start on metoprolol 25 mg twice daily. (2) Hypotension: Currently hypotensive. Goal blood pressure less than 140/90 mmHg. Also tachycardic. Given diabetes he would benefit from JERZY/ARB but given recurrent admissions with acute kidney injury will hold off. Metoprolol as above. If needed add amlodipine. (3) Uncontrolled hypertension: (4) DKA (diabetic ketoacidosis): Seen on admission. Duplicate admissions in the past. Resolved. A1c more than 11. As per patient he missed a dose of Lantus that could be the cause of his DKA. Continue with carb consistent diet. Lantus 20 units nightly, sliding scale before meals and at bedtime. Qualifiers: Diabetes mellitus complication detail: without coma Diabetes mellitus type: type 1 Qualified Code(s): E10.10 - Type 1 diabetes mellitus with ketoacidosis without coma (5) Acute kidney injury: Resolved. Most likely in setting of dehydration from DKA. Monitor BMP daily. (6) Acute hyperkalemia: Currently having hypokalemia. Replace with 40 mg oral, potassium phosphate to replace phosphorus as well. Monitor BMP daily for now. (7) EKG, abnormal: As above. (8) Leukocytosis: Likely in setting of mild hemoconcentration. Start on normal saline at 50 cc/h. Blood cultures have remained negative. Patient is having episodes of diarrhea. Check C. difficile. Hold off on antibiotics for now. Plan Full code Cardiac diet carb consistent. Lovenox 40 mg subcu daily for DVT prophylaxis. Famotidine for PUD prophylaxis. Attestations 2 Medical Necessity Statement*: Requires further hospitalization for further evaluation and management of ACS and patient was admitted with DKA with elevated troponins, uncontrolled hypertension Diagnoses NSTEMI (non-ST elevated myocardial infarction) I21.4 Hypotension I95.9 Uncontrolled hypertension I10 DKA (diabetic ketoacidosis) E10.10 Diabetes mellitus complication detail: without coma Diabetes mellitus type: type 1 Acute kidney injury N17.9 Acute hyperkalemia E87.5 EKG, abnormal R94.31 Leukocytosis D72.829
[2024-01-13 17:47] LABS: Glucose Point of Care 222 mg/dL (70-110)
--- NOTE | 2024-01-13 18:10 | PC.NURSE ---
Dr River notified of patient's increased blood pressure.
[2024-01-13 18:57] LABS: Iron 15 ug/dL (59-158); Percent Saturation 5.5 % (20-50); Total Iron Binding Capacity 269 mcg/dl; Unsaturated Iron Binding 254 ug/dL (112-347)
[2024-01-13] MEDS: pantoprazole 40 mg SDV IVP (19:18)
[2024-01-13 20:44] LABS: Glucose Point of Care 134 mg/dL (70-110)
[2024-01-13] MEDS: insulin glargine 100 units/1 mL 30 UNIT SUBCUT (21:26)
[2024-01-14] VITALS: BP 153/91; PULSE 89; RESP 18; TEMP 36.8; O2SAT 95
[2024-01-14 03:54] LABS: Basophils % 0.3 %; Eosinophils % 0.2 %; Hematocrit 35.7 % (37-53); Lymphocytes # 1.8 10^3/uL (0.8-4.8); Lymphocytes % 30.5 %; Mean Corpuscular HGB Conc 33.1 g/dL (30-55); Mean Corpuscular Volume 81.7 fl (82-101); Mean Platelet Volume 11.7 fL (7.4-10.4); Monocytes # 0.6 10^3/uL (0.2-0.9); Monocytes % 10.6 %; Neutrophils # 3.39 10^3/uL (1.8-7.7); Neutrophils % 58.2 %; Nucleated Red Blood Cells % 0 %; Platelet Count 207 10^3/cmm (157-399); Red Blood Count 4.37 10^6/uL (3.85-5.65); Red Cell Distribution Width 14.2 % (12.1-15.1); White Blood Count 5.83 10^3/uL (3.29-11.43)
[2024-01-14 03:58] VITALS: BP 152/101; PULSE 90; RESP 17; TEMP 36.9; O2SAT 98
[2024-01-14 04:16] LABS: Alanine Aminotransferase 8 U/L (0-41); Albumin Level 3.1 g/dL (3.5-5.2); Alkaline Phosphatase 104 U/L (40-130); Anion Gap 12.8 (5-19); Aspartate Amino Transferase 10 U/L (0-40); Blood Urea Nitrogen 9 mg/dL (6-20); Calcium 8.4 mg/dL (8.5-10.5); Carbon Dioxide 29 mmol/L (22-29); Chloride 99 mmol/L (98-107); Creatinine Clr Calc Pharmacy 161.4511; Glomerular Filtration Rate 136.3 mL/min (90-130); Glucose 288 mg/dL (65-115); Magnesium 1.9 mg/dL (1.7-2.3); Osmolality Calculated 293 mOsm/kg (285-295); Phosphorus 2.6 mg/dL (2.5-4.5); Potassium 3.8 mmol/L (3.5-5.1); Sodium 137 mmol/L (136-145); Total Bilirubin 0.3 mg/dL (0.15-1.2); Total Protein 5.1 g/dL (6.6-8.7)
[2024-01-14 06:34] LABS: Glucose Point of Care 316 mg/dL (70-110)
[2024-01-14 08:00] VITALS: BP 159/103; PULSE 90; RESP 18; TEMP 37; O2SAT 97
[2024-01-14] MEDS: insulin lispro 100 unit/1 mL SUBCUT (08:33)
[2024-01-14] MEDS: enoxaparin 40 mg/0.4 mL Syringe SUBCUT (08:33)
[2024-01-14] MEDS: metoprolol tartrate 25 mg Tablet PO (08:34)
--- NOTE | 2024-01-14 09:37 | P.DS_ITS ---
Discharge Providers Date of Admission: 01/11/24 18:38 Date of Discharge: January 14, 2024 Attending Provider at Admission: Iftikhar Soriano Attending Provider at Discharge: Jens River MD Primary Care Provider: Adi Castellon MD Diagnoses at Discharge Discharge Diagnosis (1) NSTEMI (non-ST elevated myocardial infarction): Status: Ruled-out (2) Hypotension: Status: Acute (3) Uncontrolled hypertension: Status: Acute (4) DKA (diabetic ketoacidosis): Status: Acute Qualifiers: Diabetes mellitus complication detail: without coma Diabetes mellitus type: type 1 Qualified Code(s): E10.10 - Type 1 diabetes mellitus with ketoacidosis without coma (5) Acute kidney injury: Status: Acute (6) Acute hyperkalemia: Status: Acute (7) EKG, abnormal: Status: Acute (8) Leukocytosis: Status: Resolved Reason for Visit Reason for Visit: HYPERGLYCEMIA Brief History: History as per HPI: 28-year-old with DM1, history of recurre nt DKA, was brought in after EMS was called due to tachycardia, elevated blood sugar, was found unresponsive on arrival, responsive only to painful stimuli, reportedly in wide-complex tachycardia, with tachypnea. In ER tachycardic, EKG with appearance of new left bundle branch block, however, this appears to be more so due to hyperkalemia, potassium as high as 7.7 on ABG, severe metabolic acidosis, pH 6.88, bicarb 3, anion gap 31, MICHAEL, BUN 42, creatinine 2.9. Glucose 1248. Lactic acid 8.6. Leukocytosis 33.16. Resuscitation was initiated in ER, received IV fluid boluses, 15 units regular insulin, starting on bicarb drip. Blood cultures collected. Per discussion w ER physician, empiric Zosyn. CVC placed. CXR and UA are requested. Cardiology contacted regarding poss new LBBB. He is lethargic, slightly more responsive. Denies pain. Hospital Course Hospital Course Close admitted to the hospital further evaluation and management of severe diabetic ketoacidosis which pH of 6.8. He was started on treatment as per protocol for DKA and admitted to ICU. On treatment for his altered mental status, hyperkalemia, hyperphosphatemia, acute kidney injury and metabolic acidosis resolved. Given concerns for EKG changes on admission he underwent echocardiogram which showed normal EF and eventually went Lexiscan stress test on 01/12 which was negative for acute ischemia. During hospitalization he was found to have elevated blood pressures for which she was started on metoprolol 25 mg twice daily and amlodipine 10 mg daily. He has been discharged in hemodynamically stable condition with advised to continue to take insulin more regularly for severe type 1 diabetes mellitus along with antihypertensives. He is to follow-up with his primary care provider within next 1 week. Physical Exam Const: GENERAL APPEARANCE: cooperative HENMT: MOUTH: moist mucous membranes abnormal Details: parched Neck/C-Spine: COMMON NORMALS: no JVD Resp: COMMON NORMALS: normal respiratory effort and clear to auscultation bilaterally AUSCULTATION: clear to auscultation bilaterally Cardio: COMMON NORMALS: no JVD, regular rhythm, S1 normal heart sound present, S2 normal heart sound present and No murmurs present (Cardio) RATE: tachycardic RHYTHM: regular rhythm HEART SOUNDS: S1 normal heart sound present and S2 normal heart sound present GI: COMMON NORMALS: Normal to inspection, nondistended, normoactive bowel sounds present, Soft to palpation and non-tender PALPATION: Yes Soft to palpation Extremity: COMMON NORMALS: no joint enlargement and no pedal edema Neuro: COMMON NORMALS: moves all extremities Skin: COMMON NORMALS: no rashes or lesions noted GENERAL SKIN EXAM: no rashes or lesions noted Discharge Data Studies Completed and Pending Completed Studies During Hospitalization Category Date Time Status Cardiac Stress Test MIBI [Sestamibi Stress Test Request Exams 01/13/24 09:00 Draft ] Routine XR chest 1V portable [id number] Stat Exams 01/11/24 17:09 Completed XR chest 1V portable [id number] Stat Exams 01/11/24 20:11 Completed NM bala perf SPECT r/s* [id number] Routine Nuc Med 01/13/24 12:12 Completed CV. echo complete* [id number] Routine Ultrasound 01/13/24 09:30 Completed Pending at discharge Category Date Time Status Blood Culture Stat Lab 01/11/24 18:44 Results C.Diff PCR (Lab) Routine Lab 01/13/24 11:31 Ordered Radiology Impressions Chest X-Ray 01/11/24 20:11 IMPRESSION: Right central line in proper positioning in the mid SVC. Echocardiogram CONCLUSIONS LV systolic function is normal with EF of 60-65% Trace mitral regurgitation Trace tricuspid regurgitation Compared to prior echocardiogram from 2021, no significant changes are seen. Aime Calle MD (Electronically Signed) Final Date: 13 January 2024 Laboratory Results WBC 5.83 10^3/uL (3.29-11.43) 01/14/24 03:12 RBC 4.37 10^6/uL (3.85-5.65) 01/14/24 03:12 Hgb 11.80 g/dL (11.27-16.99) 01/14/24 03:12 Hct 35.7 % (37-53) L 01/14/24 03:12 MCV 81.7 fl (82-101) L 01/14/24 03:12 MCH 27.0 pg (27-33) 01/14/24 03:12 MCHC 33.1 g/dL (30-55) 01/14/24 03:12 RDW 14.2 % (12.1-15.1) 01/14/24 03:12 Plt Count 207 10^3/cmm (157-399) 01/14/24 03:12 MPV 11.7 fL (7.4-10.4) H 01/14/24 03:12 Neut % (Auto) 58.2 % 01/14/24 03:12 Lymph % (Auto) 30.5 % 01/14/24 03:12 [place] % (Auto) 10.6 % 01/14/24 03:12 Eos % (Auto) 0.2 % 01/14/24 03:12 Baso % (Auto) 0.3 % 01/14/24 03:12 Neut # (Auto) 3.39 10^3/uL (1.8-7.7) 01/14/24 03:12 Lymph # (Auto) 1.8 10^3/uL (0.8-4.8) 01/14/24 03:12 [place] # (Auto) 0.6 10^3/uL (0.2-0.9) 01/14/24 03:12 Eos # (Auto) 0.0 10^3/uL (0.0-0.8) 01/14/24 03:12 Baso # (Auto) 0.0 10^3/uL (0.0-0.1) 01/14/24 03:12 Nucleated RBC % (auto) 0 % 01/14/24 03:12 Nucleated RBCs # 0.0 /100WBC 01/14/24 03:12 Specimen Type Arterial 01/11/24 20:48 Sample Site Radial, right 01/11/24 20:48 ABG pH 7.20 (7.35-7.45) L 01/11/24 20:48 ABG pCO2 17.7 mmHg (35-45) L* 01/11/24 20:48 ABG pO2 51.7 mmHg (80.0-100.0) L 01/11/24 20:48 ABG HCO3 6.9 mmol/L (22-26) L 01/11/24 20:48 ABG O2 Saturation 98.4 01/11/24 17:10 ABG Base Excess -19.1 mmol/L (-2.0-2.0) L 01/11/24 20:48 [place] Test Pos 01/11/24 20:48 A-a O2 Gradient Not Reportable 01/11/24 17:10 Hematocrit 36.1 % (42-52) L 01/11/24 20:48 Hgb O2 Saturation 96.6 % (95-100) 01/11/24 17:10 Carboxyhemoglobin 0.9 %THgb (0.4-20.1) 01/11/24 17:10 Methemoglobin 1.0 % (0.4-1.5) 01/11/24 17:10 Total Hemoglobin 12.5 g/dL (14-18) L 01/11/24 17:10 Sodium 120.0 mmol/L (131-143) L 01/11/24 17:10 Potassium 7.7 mmol/L (3.5-5.0) H 01/11/24 17:10 Glucose 1066.0 mg/dL (70-115) H 01/11/24 17:10 Ionized Calcium 1.1 mmol/L (1.1-1.4) 01/11/24 17:10 O2 Delivery Device Room air 01/11/24 20:48 Process Laboratory Specialist ID Jesus Alberto 01/11/24 20:48 Sodium 137 mmol/L (136-145) 01/14/24 03:12 Potassium 3.8 mmol/L (3.5-5.1) 01/14/24 03:12 Chloride 99 mmol/L (98-107) 01/14/24 03:12 Carbon Dioxide 29 mmol/L (22-29) 01/14/24 03:12 Anion Gap 12.8 (5-19) 01/14/24 03:12 BUN 9 mg/dL (6-20) 01/14/24 03:12 Creatinine 0.7 mg/dL (0.7-1.2) 01/14/24 03:12 GFR Calculation 136.3 mL/min (90-130) H 01/14/24 03:12 Glucose 288 mg/dL (65-115) H 01/14/24 03:12 POC Glucose 316 mg/dL (70-110) H 01/14/24 06:32 Calculated Osmolality 293 mOsm/kg (285-295) 01/14/24 03:12 Lactic Acid 8.6 mmol/L (0.5-2.2) H* 01/11/24 17:46 Lactic Acid (Sepsis) 3.3 mmol/L (0.5-2.2) H 01/11/24 20:46 Calcium 8.4 mg/dL (8.5-10.5) L 01/14/24 03:12 Phosphorus 2.6 mg/dL (2.5-4.5) 01/14/24 03:12 Magnesium 1.9 mg/dL (1.7-2.3) 01/14/24 03:12 Iron 15 ug/dL (59-158) L 01/13/24 04:23 TIBC 269 mcg/dl 01/13/24 04:23 % Saturation 5.5 % (20-50) L 01/13/24 04:23 Unsat Iron Binding 254 ug/dL (112-347) 01/13/24 04:23 Total Bilirubin 0.3 mg/dL (0.15-1.2) 01/14/24 03:12 AST 10 U/L (0-40) 01/14/24 03:12 ALT 8 U/L (0-41) 01/14/24 03:12 Alkaline Phosphatase 104 U/L (40-130) 01/14/24 03:12 Troponin T Baseline 53 ng/L (0-15) H 01/11/24 17:10 Troponin T 120 Minute 51.02 ng/L (0-15) H 01/11/24 19:09 Delta Troponin T -1.98 ABS# (0-10) L 01/11/24 19:09 Troponin T Hi Sens 6Hr 148.0 ng/L (0-15) H 01/11/24 23:03 Troponin T Hi Sens 6Hr Delta 95.0 ng/L (0-12) H* 01/11/24 23:03 Total Protein 5.1 g/dL (6.6-8.7) L 01/14/24 03:12 Albumin 3.1 g/dL (3.5-5.2) L 01/14/24 03:12 Globulin 2.0 g/dL (1.3-4.6) 01/14/24 03:12 Triglycerides 159 mg/dL (0-150) H 01/13/24 04:23 Cholesterol 125 mg/dL (0-200) 01/13/24 04:23 LDL Cholesterol, Calc 50 mg/dL (50-129) 01/13/24 04:23 Total VLDL Cholesterol 32 mg/dL (0-30) H 01/13/24 04:23 HDL Cholesterol 43 mg/dL (60-100) L 01/13/24 04:23 Cholesterol/HDL Ratio 2.91 mg/dL (1.0-5.00) 01/13/24 04:23 Procalcitonin 2.96 ng/mL (0-0.5) H 01/13/24 04:23 Urine Color Yellow (Yellow) 01/11/24 18:54 Urine Appearance Clear (CLEAR) 01/11/24 18:54 Urine pH 5 (5-7) 01/11/24 18:54 Ur Specific [place] 1.015 (1.005-1.030) 01/11/24 18:54 Urine Protein 1+ (Negative) H 01/11/24 18:54 Urine Glucose (UA) 4+ (Normal) H 01/11/24 18:54 Urine Ketones 2+ (Negative) H 01/11/24 18:54 Urine Blood 2+ (Negative) H 01/11/24 18:54 Urine Nitrate Negative (Negative) 01/11/24 18:54 Urine Bilirubin Neg (Negative) 01/11/24 18:54 Urine Urobilinogen Neg mg/dL (Negative) 01/11/24 18:54 Ur Leukocyte Esterase Negative (Negative) 01/11/24 18:54 Urine RBC 0-4 /hpf (0-2) H 01/11/24 18:54 Urine WBC 0-4 /hpf (0-5) H 01/11/24 18:54 Ur Squamous Epith Cells 0-4 /hpf (0-5) H 01/11/24 18:54 Amorphous Sediment Not Reportable 01/11/24 18:54 Urine Bacteria Trace /hpf (NONE) 01/11/24 18:54 Hyaline Casts 5-10 /lpf H 01/11/24 18:54 Fine Granular Casts 0-4 /lpf H 01/11/24 18:54 Urine Mucus 1+ /hpf 01/11/24 18:54 Urine Opiates Screen Negative ng/mL (Negative) 01/11/24 18:54 Ur Barbiturates Screen Negative ng/mL (Negative) 01/11/24 18:54 Ur Phencyclidine Scrn Negative ng/mL (Negative) 01/11/24 18:54 Ur Amphetamines Screen Negative ng/mL (Negative) 01/11/24 18:54 U Benzodiazepines Scrn Negative ng/mL (Negative) 01/11/24 18:54 Urine Cocaine Screen Negative ng/mL (Negative) 01/11/24 18:54 U Marijuana (THC) Screen Negative ng/mL (Negative) 01/11/24 18:54 Serum Ketones Positive (Negative) H 01/11/24 17:10 Procedures Performed Lexiscan Cardiac stress test PERFUSION FINDINGS Fairly uniform myocardial tracer uptake. No significant perfusion abnormalities are noted FUNCTIONAL RESULTS (calculated via Gated SPECT) Stress Image LV EF (%): 88 Stress EDV (mL):65 TID: 0.79 Stress ESV (mL):8 FUNCTIONAL FINDINGS: Segmental wall motion analysis revealing no gross wall motion abnormalities IMPRESSIONS 1. Myocardial perfusion imaging revealing uniform myocardial tracer uptake with no significant perfusion abnormalities. 2. Segmental wall motion analysis revealing no gross wall motion abnormalities 3. LV ejection fraction of 88%. 4. Normal LV volume. Low probability for coronary ischemia, based on the above findings No similar previous studies are available for comparison Dr Bishnu Dennis MD [facility] (Electronically Signed) Final Date: 13 January 2024 Vitals Last Vital Signs Temp 98.6 F 01/14/24 08:00 Pulse 90 01/14/24 08:00 Resp 18 01/14/24 08:00 BP 159/103 01/14/24 08:00 Pulse Ox 97 01/14/24 08:00 O2 Del Method Room Air 01/14/24 08:00 Discharge Plan Discharge Patient Disposition: Home Condition: Stable Prescriptions: New metoprolol tartrate 25 mg Tablet 25 mg PO BID@0900,2100 Qty: 60 0RF amlodipine 10 mg tablet 10 mg PO DAILY Qty: 30 0RF Continued (DME) blood-glucose meter [OneTouch Ultra2 Meter] Kit See Rx Instructions .Route Qty: 1 0RF Rx Instructions: To use TID to check blood sugar levels before taking insulin (DME) blood sugar diagnostic Strip See Rx Instructions .Route Qty: 300 3RF Rx Instructions: To use TID in onetouch meter to check blood sugar, 90 day supply insulin aspart U-100 [Novolog FlexPen U-100 Insulin] 100 unit/mL (3 mL) insulin pen 10 unit SUBCUT TID Qty: 15 3RF Levemir FlexPen 100 unit/mL (3 mL) insulin pen 30 unit SUBCUT QPM Qty: 15 2RF Discharge Orders: Discharge Order (Routine); Ordered 01/14/24 Ordered By: Jens River Referrals: Adi Castellon MD [Primary Care Provider] - 7-10 days (You have a hospital follow up on saturdayJanuary [address] Castellon. If you have any questions or concerns please call the office. [phone]) Discharge Diet: Cardiac and Diabetic Discharge Activity: Resume usual activity and Increase activity as tolerated Patient Instructions: Type 1 Diabetes, Metoprolol (By mouth), Amlodipine (By mouth), Heart Attack (DC), Acute Kidney Injury (DC), Diabetic Ketoacidosis (DC), Opioid Safety Activity Restrictions/Additional Instructions: Continue taking insulin with 30 units of Lantus every night and insulin sliding scale. Take metoprolol 25 mg twice daily and amlodipine 10 mg daily for high blood pressure. Goal blood pressure should be less than 140/90 mmHg. Please maintain your oral hydration with at least 2 to 3 L of fluid daily. Discharge Attestations Time Spent in Discharge Care*: greater than 30 min Specific Discharge Activities: educating patient, discussing with pcp/other providers, discussing with manager of case/social workers/dc planners, documentin g/other paperwork and evaluating patient/reviewing data Status at Discharge: Cognitive status at discharge: cognitively intact , Beh avioral status at discharge: cooperative , Functional status at discharge: independent ambulation , Overall status at discharge: patient is back to baseline Quality Metrics Clinical Quality Measures [ No reported AMI, CVA or VTE this stay] Coding Level of Care Code 97554 Total time (in minutes) for Discharge: 60 Diagnoses NSTEMI (non-ST elevated myocardial infarction) I21.4 Hypotension I95.9 Uncontrolled hypertension I10 DKA (diabetic ketoacidosis) E10.10 Diabetes mellitus complication detail: without coma Diabetes mellitus type: type 1 Acute kidney injury N17.9 Acute hyperkalemia E87.5 EKG, abnormal R94.31 Leukocytosis D72.829
--- NOTE | 2024-01-14 09:44 | PC.CHAP ---
Pastoral Care Encounter/Spiritual Assessment Type of Contact [] Declined eligibility specialist visit [] Patient/Family/Request visit [] Outpatient visit [] Follow-up visit [] Physician referral [] Code/Alert [] Routine visit [] Staff referral [] Actively dying [] Patient sleeping [] Family support [] [] Out of room [] Palliative care [] [x] Receiving care in room [] Pre-surgical visit [] Trauma [] Long length of stay [] ICU visit [] Other: Relational/Emotional Strength [] Patient feels connected with others/family/visitors/staff [] Distress [] Loneliness/isolation [] Abandonment Spirituality of Patient [] Person of Lea [] Attends Mandaeism of their Ela [] Believes in Prayer [] Reads Bible or Gnosticist materials [] There are Spiritual issues to be addressed Animal Groomer Interventions [] Prayer [] Active listening [] Non-anxious presence [] Spiritual/emotional support [] Crisis/trauma care [] Spiritual counseling [] Bereavement support [] Provided bereavement packet [] Provided Bible/devotional materials [] Provided toy/stuffed animal, coloring book to patient or family member [] Provided Communion [] Anointing/[place] [] Salvation [] Completed spiritual assessment [] Other: Impact on Illness or Injury [] Angry [] Fearful [] Anxious [] Often cries [] Exhaustion [] Unable to work [] Unable to attend druze [] Unable to walk/stand [] Unable to read [] Unable to drive [] Unable to eat/drink [] Unable to sleep [] Unable to be with family [] Patient intubated [] Other: Summary Time spent with patient
[2024-01-14 11:12] VITALS: BP 159/103; PULSE 90; RESP 18; TEMP 37; O2SAT 97
--- NOTE | 2024-01-14 11:29 | PC.NURSE ---
Patient left with mother via a private car. Patient's mother did ask to talk with Collette from case management but just decided to walk out after I discharged him. Collette is notified.
== END 2024-01-14 11:33 | disposition home or self-care (01) | DRG 637 ==
LOC: ER 18:36 → ICU 18:52 → CSU 01-12 15:00
PROVIDERS: Internal Medicine; Admitting Provider Internal Medicine; Emergency Provider Emergency Medicine; PCP Family Medicine; Visit Provider Student in an Organized Health Care Education/Training Program
DX: E10.10 Type 1 diabetes mellitus with ketoacidosis without coma (principal); G93.41 Metabolic encephalopathy; I21.4 Non-ST elevation (NSTEMI) myocardial infarction; N17.9 Acute kidney failure, unspecified; Z79.4 Long term (current) use of insulin; I10 Essential (primary) hypertension; I95.9 Hypotension, unspecified; E86.0 Dehydration; E87.5 Hyperkalemia; R94.31 Abnormal electrocardiogram [ECG] [EKG]; D72.829 Elevated white blood cell count, unspecified; E83.39 Other disorders of phosphorus metabolism; Z91.148 Patient's other noncompliance with medication regimen for other reason; F17.210 Nicotine dependence, cigarettes, uncomplicated; E83.42 Hypomagnesemia
CPT/HCPCS: 36415; 36416; 36556; 36592; 36600; 71045; 78452; 80048; 80051; 80053; 80061; 80306; 81001; 82009; 82330; 82803; 82805; 82947; 82962; 83540; 83550; 83605; 83735; 84100; 84145; 84484; 85025; 87040; 93005; 93017; 93306; 96365; 96366; 96367; 96372; 96375; 96376; 99291; 99292; A9500; C1751; C9113; J0612; J1650; J1815; J2543; J2785; J3480; J7030; J7070; J7799

== ENCOUNTER 2024-05-11 09:03 | Inpatient (IN) | payer MEDICAID, SELFPAY ==
[2024-05-11] VITALS (55 sets, daily range): BP systolic 125–189; BP diastolic 74–117; PULSE 90–121; RESP 12–30; TEMP 36.4–37.8; O2SAT 96–100
--- NOTE | 2024-05-11 09:04 | XRR_ITS ---
PROCEDURE INFORMATION: Exam: XR Chest Exam date and time: 05/11/2024 9:33 AM Age: 29 years old Clinical indication: Shortness of breath; Additional info: Hyperglycemia, dka TECHNIQUE: Imaging protocol: Radiologic exam of the chest. Views: 1 view. COMPARISON: CR (CHEST, ) 01/11/2024 7:16 PM FINDINGS: Lungs: Unremarkable. No consolidation. Pleural spaces: Unremarkable. No pleural effusion. No pneumothorax. Heart/Mediastinum: Unremarkable. No cardiomegaly. Bones/joints: Unremarkable. XR/XR chest 1V portable [id number] IMPRESSION: No acute findings.
[2024-05-11 09:12] LABS: Glucose Point of Care > 600 mg/dL (70-110)
[2024-05-11 09:17] LABS: Arterial Blood Gas Hematocrit 41.8 % (42-52); Base Excess ABG -28.3 mmol/L (-2.0-2.0); Blood Gas Allen Test Pos; Blood Gas Operator Identificat WALCI; Blood Gas Sample Site Radial, right; Blood Gas Sample Type Arterial; Carboxyhemoglobin 0.6 %THgb (0.4-20.1); HCO3 ABG 1.6 mmol/L (22-26); HGB O2 Sat 95.8 % (95-100); Ionized Calcium Level - ABG 1.2 mmol/L (1.1-1.4); Methemoglobin 1.7 % (0.4-1.5); Oxygen Device ROOM AIR; Oxygen Saturation ABG 98.1; PO2 FiO2 Ratio Arterial Blood 671; Potassium Level - ABG 6.3 mmol/L (3.5-5.0); Total Hemoglobin 13.6 g/dL (14-18)
--- NOTE | 2024-05-11 09:17 | ECG_ITS ---
[facility] Test Date: 2024-05-11 Pat Name: Jean Miller Department: Room: Gender: Male Screening Nurse: : 1995 Requested By: Daisy Crzu Order Number: [id number] Remy MD: Aime Calle M.D. Measurements Intervals [place] Rate: 119 P: 75 HI: 178 QRS: 43 QRSD: 101 T: 67 QT: 301 QTc: 425 Interpretive Statements SINUS TACHYCARDIA SEPTAL MYOCARDIAL INFARCTION , PROBABLY OLD [40+ ms Q WAVE IN V1/V2] Compared to ECG 01/11/2024 23:46:51 Myocardial infarct finding now present Electronically Signed On 05-11-2024 12:46:09 CDT by Aime Calle M.D. [email or web address]
[2024-05-11 09:18] LABS: ABG PH Result 6.97 (7.35-7.45)
[2024-05-11] MEDS: insulin regular-human 100 units/1 mL 10 UNIT IVP (09:28)
--- NOTE | 2024-05-11 09:28 | ED_ITS ---
HPI - General Adult 2 General: Chief complaint: ER Hold Stated complaint: hyperglycemia Time Seen by Provider: 05/11/24 09:04 History of Present Illness: 29-year-old type I diabetic presents roxane rgency room from local group home. He is in obvious DKA with Kussma[place] breathing on arrival. Unfortunate reports that his cellmate reported to them that something was wrong this morning when negative evaluated the patient he was in obvious distress and EMS was called. 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 He is awake enough he is aware of where he is at and what is going on. He normally uses an insulin pump which has not been on nor has his glucometer been on. He cannot tell me with certainty when the last time he had any insulin was. Associated symptoms: Reports dyspnea, nausea and palpitations; Deny rash Review of Systems 2 Const: Denies: fever(s) or chills Card: Reports: palpitations Resp: Reports: dyspnea GI: Reports: abdominal pain and nausea : Denies: dysuria, urinary frequency or urinary urgency Musc: Denies: neck pain or back pain Skin/Breast: Denies: rash PFSH ED 2 PFSH: Medical History DKA, type 1 Nicotine dependence, cigarettes, uncomplicated Acute kidney injury Hypokalemia Metabolic acidosis Polysubstance abuse DKA (diabetic ketoacidosis) Type 1 diabetes mellitus, uncontrolled DKA (diabetic ketoacidosis) History of thyroid nodule right complex nodule, FNA showed benign 03/2022 Transaminitis Hypertension Hyperthyroidism subclinical Amphetamine abuse Long-term insulin use Diabetes type 1, uncontrolled History of DKA Surgical History No history of previous surgery none known Family History Other Family history unknown Social History Smoking and tobacco/nicotine status: current every day tobacco/nicotine user cigarettes Packs smoked per day: 1 Alcohol intake: former Substance/Drug Use: current Physical Exam 2 Const: GENERAL APPEARANCE: cooperative ORIENTATION/CONSCIOUSNESS: Yes awake HENMT: COMMON NORMALS: normocephalic, atraumatic and hearing grossly normal bilaterally HEAD & SCALP: normocephalic and atraumatic Resp: COMMON NORMALS: No retractions and clear to auscultation bilaterally EFFORT & INSPECTION: Yes tachypneic and Yes uses accessory muscles A USCULTATION: clear to auscultation bilaterally Cardio: COMMON NORMALS: regular rate, regular rhythm and No murmurs present (Cardio) RATE: regular rate RHYTHM: regular rhythm GI: COMMON NORMALS: Soft to palpation and No hepatosplenomegaly present A USCULTATION: Yes normoactive bowel sounds PALPATION: Yes Soft to palpation, No Tenderness to palpation present (GI), No Guarding due to palpation present (GI) and Yes No hepatosplenomegaly present Extremity: COMMON NORMALS: normal to inspection, capillary refill normal, no clubbing, cyanosis or edema, no calf tenderness and no pedal edema Skin: COMMON NORMALS: no rashes or lesions noted GENERAL SKIN EXAM: no rashes or lesions noted Course 2 Vital Signs: Vital signs: Vital Signs Temperature 97.7 F 05/11/24 14:46 Pulse Rate 90 05/11/24 14:46 Respiratory Rate 15 05/11/24 14:46 Blood Pressure 167/101 05/11/24 14:46 Pulse Oximetry 100 05/11/24 14:46 Oxygen Delivery Me thod Room Air 05/11/24 14:46 MDM - General Adult Medical Decision Making DKA likely due to poor management and the new environment he was in. Patient has had frequent DKA in the past as well. No signs of infection precipitating event his white count is due to his severe DKA. Discussed with hospitalist will admit patient has had IV fluid orders initial insulin bolus and insulin drip are ordered. Will monitor repeat chemistries and glucose serum glucose. Orders written. Hospitalist to see will be admitted to the ICU as soon as bed becomes available there. Lab Data 05/11/24 09:22 05/11/24 14:08 Radiology Impressions Chest X-Ray 05/11/24 09:04 IMPRESSION: No acute findings. Laboratory Results WBC 27.11 10^3/uL (3.29-11.43) H 05/11/24 09:22 RBC 4.81 10^6/uL (3.85-5.65) 05/11/24 09:22 Hgb 13.30 g/dL (11.27-16.99) 05/11/24 09:22 Hct 45.6 % (37-53) 05/11/24 09:22 MCV 94.8 fl (82-101) 05/11/24 09:22 MCH 27.7 pg (27-33) 05/11/24 09:22 MCHC 29.2 g/dL (30-55) L 05/11/24 09:22 RDW 12.4 % (12.1-15.1) 05/11/24 09:22 Plt Count 305 10^3/cmm (157-399) 05/11/24 09:22 MPV 11.6 fL (7.4-10.4) H 05/11/24 09:22 Neut % (Auto) 87.2 % 05/11/24 09:22 Lymph % (Auto) 3.7 % 05/11/24 09:22 Centre % (Auto) 8.1 % 05/11/24 09:22 Eos % (Auto) 0.0 % 05/11/24 09:22 Baso % (Auto) 0.4 % 05/11/24 09:22 Neut # (Auto) 23.63 10^3/uL (1.8-7.7) H 05/11/24 09:22 Lymph # (Auto) 1.0 10^3/uL (0.8-4.8) 05/11/24 09:22 Centre # (Auto) 2.2 10^3/uL (0.2-0.9) H 05/11/24 09:22 Eos # (Auto) 0.0 10^3/uL (0.0-0.8) 05/11/24 09:22 Baso # (Auto) 0.1 10^3/uL (0.0-0.1) 05/11/24 09:22 Nucleated RBC % (auto) 0 % 05/11/24 09:22 Nucleated RBCs # 0.0 /100WBC 05/11/24 09:22 Specimen Type Arterial 05/11/24 09:06 Sample Site Radial, right 05/11/24 09:06 ABG pH 6.97 (7.35-7.45) L* 05/11/24 09:06 ABG pCO2 7.0 mmHg (35-45) L* 05/11/24 09:06 ABG pO2 141.0 mmHg (80.0-100.0) H 05/11/24 09:06 ABG PO2/FiO2 Ratio 671 05/11/24 09:06 ABG HCO3 1.6 mmol/L (22-26) L 05/11/24 09:06 ABG O2 Saturation 98.1 05/11/24 09:06 ABG Base Excess -28.3 mmol/L (-2.0-2.0) L 05/11/24 09:06 [place]reket Test Pos 05/11/24 09:06 A-a O2 Gradient Not Reportable 05/11/24 09:06 Hematocrit 41.8 % (42-52) L 05/11/24 09:06 Hgb O2 Saturation 95.8 % (95-100) 05/11/24 09:06 Carboxyhemoglobin 0.6 %THgb (0.4-20.1) 05/11/24 09:06 Methemoglobin 1.7 % (0.4-1.5) H 05/11/24 09:06 Total Hemoglobin 13.6 g/dL (14-18) L 05/11/24 09:06 Sodium 122.0 mmol/L (131-143) L 05/11/24 09:06 Potassium 6.3 mmol/L (3.5-5.0) H 05/11/24 09:06 Glucose 805.0 mg/dL (70-115) H 05/11/24 09:06 Ionized Calcium 1.2 mmol/L (1.1-1.4) 05/11/24 09:06 O2 Delivery Device Room air 05/11/24 09:06 FiO2 21.0 % 05/11/24 09:06 Field Support Rep ID [place] 05/11/24 09:06 Sodium 121 mmol/L (136-145) L 05/11/24 09:22 Potassium 6.9 mmol/L (3.5-5.1) H* 05/11/24 09:22 Chloride 83 mmol/L (98-107) L 05/11/24 09:22 Carbon Dioxide 2 mmol/L (22-29) L* 05/11/24 09:22 Anion Gap 42.9 (5-19) H 05/11/24 09:22 BUN 25 mg/dL (6-20) H 05/11/24 09:22 Creatinine 1.6 mg/dL (0.7-1.2) H 05/11/24 09:22 GFR Calculation 52.1 mL/min (90-130) L 05/11/24 09:22 Glucose 826 mg/dL (65-115) H* 05/11/24 09:22 POC Glucose > 600 mg/dL (70-110) H* 05/11/24 10:07 Calculated Osmolality 297 mOsm/kg (285-295) H 05/11/24 09:22 Calcium 8.4 mg/dL (8.5-10.5) L 05/11/24 09:22 Phosphorus 6.2 mg/dL (2.5-4.5) H 05/11/24 09:22 Magnesium 2.2 mg/dL (1.7-2.3) 05/11/24 09:22 Total Bilirubin 0.3 mg/dL (0.15-1.2) 05/11/24 09:22 AST 14 U/L (0-40) 05/11/24 09:22 ALT 17 U/L (0-41) 05/11/24 09:22 Alkaline Phosphatase 179 U/L (40-130) H 05/11/24 09:22 Total Protein 5.9 g/dL (6.6-8.7) L 05/11/24 09:22 Albumin 3.4 g/dL (3.5-5.2) L 05/11/24 09:22 Globulin 2.5 g/dL (1.3-4.6) 05/11/24 09:22 Urine Color Yellow (Yellow) 05/11/24 09:46 Urine Appearance Clear (CLEAR) 05/11/24 09:46 Urine pH 5 (5-7) 05/11/24 09:46 Ur Specific [place] 1.020 (1.005-1.030) 05/11/24 09:46 Urine Protein Neg (Negative) 05/11/24 09:46 Urine Glucose (UA) 4+ (Normal) H 05/11/24 09:46 Urine Ketones 3+ (Negative) H 05/11/24 09:46 Urine Blood Trace (Negative) H 05/11/24 09:46 Urine Nitrate Negative (Negative) 05/11/24 09:46 Urine Bilirubin Neg (Negative) 05/11/24 09:46 Urine Urobilinogen Norm mg/dL (Negative) 05/11/24 09:46 Ur Leukocyte Esterase Negative (Negative) 05/11/24 09:46 Urine RBC Rare /hpf (0-2) 05/11/24 09:46 Urine WBC Rare /hpf (0-5) 05/11/24 09:46 Ur Squamous Epith Cells None /hpf (0-5) 05/11/24 09:46 Amorphous Sediment Not Reportable 05/11/24 09:46 Urine Bacteria Trace /hpf (NONE) 05/11/24 09:46 Serum Ketones Positive (Negative) H 05/11/24 09:22 All radiology interpretation(s) finalized by discharge Discharge Plan Discharge Patient Disposition: Admitted As Inpatient Admit Provider: Ford Carvajal Clinical Impression: DKA (diabetic ketoacidosis) Clinical Impression: (Ruled Out): Hyperthyroidism Condition: Stable Coding Level of Care Code ED [employer] Worker for Jazmín Agosto
[2024-05-11 09:30] LABS: Basophils # 0.1 10^3/uL (0.0-0.1); Basophils % 0.4 %; Hematocrit 45.6 % (37-53); Lymphocytes % 3.7 %; Mean Corpuscular HGB Conc 29.2 g/dL (30-55); Mean Corpuscular Hemoglobin 27.7 pg (27-33); Mean Corpuscular Volume 94.8 fl (82-101); Mean Platelet Volume 11.6 fL (7.4-10.4); Monocytes # 2.2 10^3/uL (0.2-0.9); Monocytes % 8.1 %; Neutrophils # 23.63 10^3/uL (1.8-7.7); Neutrophils % 87.2 %; Nucleated Red Blood Cells % 0 %; Platelet Count 305 10^3/cmm (157-399); Red Blood Count 4.81 10^6/uL (3.85-5.65); Red Cell Distribution Width 12.4 % (12.1-15.1); White Blood Count 27.11 10^3/uL (3.29-11.43)
[2024-05-11] MEDS: sodium chloride 0.9% 1,000 ML 999 ML IV (09:35)
[2024-05-11 09:41] LABS: Ketone (Acetest) Serum Positive (Negative)
[2024-05-11 09:49] LABS: Alanine Aminotransferase 17 U/L (0-41); Albumin Level 3.4 g/dL (3.5-5.2); Alkaline Phosphatase 179 U/L (40-130); Anion Gap 42.9 (5-19); Aspartate Amino Transferase 14 U/L (0-40); Blood Urea Nitrogen 25 mg/dL (6-20); Calcium 8.4 mg/dL (8.5-10.5); Chloride 83 mmol/L (98-107); Creatinine Clr Calc Pharmacy 67.8796; Globulin 2.5 g/dL (1.3-4.6); Glomerular Filtration Rate 52.1 mL/min (90-130); Magnesium 2.2 mg/dL (1.7-2.3); Sodium 121 mmol/L (136-145); Total Bilirubin 0.3 mg/dL (0.15-1.2); Total Protein 5.9 g/dL (6.6-8.7)
[2024-05-11 09:58] LABS: Osmolality Calculated 297 mOsm/kg (285-295)
[2024-05-11 10:01] LABS: Carbon Dioxide 2 mmol/L (22-29); Glucose 826 mg/dL (65-115); Potassium 6.9 mmol/L (3.5-5.1)
[2024-05-11 10:10] LABS: Add Urine Microscopic? YES; Bilirubin Urine Neg (Negative); Blood Urine Trace (Negative); Glucose Urine UA 4+ (Normal); Ketones Urine 3+ (Negative); Leukocyte Esterase Urine Negative (Negative); Nitrate Urine Negative (Negative); Protein Urine Neg (Negative); RBC Urine RARE /hpf (0-2); Urine Appearance Clear (CLEAR); Urine Color Yellow (Yellow); Urobilinogen Urine Norm (Negative); WBC Urine RARE /hpf (0-5); pH Urine 5 (5-7)
[2024-05-11 10:10] LABS: Glucose Point of Care > 600 mg/dL (70-110)
[2024-05-11 10:11] LABS: Add Urine Culture? No; Bacteria Urine TRACE /hpf
[2024-05-11 10:30] LABS: Phosphorus 6.2 mg/dL (2.5-4.5)
[2024-05-11] MEDS: INSULIN REGULAR IN 0.9 % NACL 100 UNIT/100 ML BAG 6 UNIT IV (10:30)
[2024-05-11 10:39] LABS: ABG PCO2 9.2 mmHg (35-45); ABG PH Result 6.94 (7.35-7.45); Arterial Blood Gas Hematocrit 41.9 % (42-52); Base Excess ABG -28.6 mmol/L (-2.0-2.0); Blood Gas Allen Test Pos; Blood Gas Operator Identificat WALCI; Blood Gas Sample Site Radial, left; Blood Gas Sample Type Arterial; Oxygen Device ROOM AIR; PO2 FiO2 Ratio Arterial Blood 680
[2024-05-11 10:54] LABS: Glucose Point of Care > 600 mg/dL (70-110)
--- NOTE | 2024-05-11 11:01 | PM.HP ---
Providers/Chief Complaint Admitting Physician: Ford Carvajal MD Primary Care Provider: Adi Castellon MD Chief Complaint: hyperglycemia History of Present Illness Jean Miller is a 29 year old male presenting to the emergency department from care home. From my understanding another inmate, had reported to staff that he was not acting appropriately this morning. Patient has history of type 1 diabetes, hypertension, and methamphetamine use. From understanding he was dosing his own insulin at care home. He comes awake for exam, and is sleepy. He reports he wants a few ice chips. He acknowledges he has had some diarrhea and vomiting. Denies any abdominal pain. Thinks he gave himself a shot of insulin yesterday but does not remember what it was morning, night or even the dosing. Denies any drug use lately, fever, headache. In the emergency department he got bolused with at least 2 L of normal saline. He was given some magnesium. He was started on insulin drip protocol. Review of Systems General: Reports: 10 or more systems reviewed and unremarkable except in HPI and below Card: Denies: chest pain Resp: Denies: dyspnea GI: Reports: nausea and vomiting; Denies: abdominal pain or hematochezia Medications/Allergies Home Medications Medication Instructions Recorded Confirmed Last Taken Type blood-glucose meter (OneTouch #1 ea 04/02/22 05/11/24 Unknown Rx Ultra2 Meter kit) blood sugar diagnostic #300 ea 05/12/22 05/11/24 Unknown Rx insulin aspart U-100 100 unit/mL 10 unit (0.1 mL) SUBCUT TID #15 mL 02/10/24 05/11/24 05/10/24 Rx (3 mL) subcutaneous pen (Novolog FlexPen U-100 Insulin aspart) insulin detemir U-100 100 unit/mL 30 unit (0.3 mL) SUBCUT QPM #15 mL 02/10/24 05/11/24 05/10/24 Rx (3 mL) subcutaneous pen (Levemir FlexPen) Allergies Allergy/AdvReac Type Severity Reaction Status Date / Time No Known Allergies Allergy Verified 05/11/24 09:19 PFSH Acute PFSH: Medical History DKA, type 1 Nicotine dependence, cigarettes, uncomplicated Acute kidney injury Hypokalemia Metabolic acidosis Polysubstance abuse DKA (diabetic ketoacidosis) Type 1 diabetes mellitus, uncontrolled DKA (diabetic ketoacidosis) History of thyroid nodule right complex nodule, FNA showed benign 03/2022 Transaminitis Hypertension Hyperthyroidism subclinical Amphetamine abuse Long-term insulin use Diabetes type 1, uncontrolled History of DKA Surgical History No history of previous surgery none known Family History Other Family history unknown Social History Smoking and tobacco/nicotine status: current every day tobacco/nicotine user cigarettes Packs smoked per day: 1 Alcohol intake: former Substance/Drug Use: current Vitals/I&O/Wt Last Vital Signs Temp 97.6 F 05/11/24 09:04 Pulse 117 H 05/11/24 10:33 Resp 28 H 05/11/24 10:33 BP 132/85 05/11/24 10:33 Pulse Ox 100 05/11/24 10:33 O2 Del Method Room Air 05/11/24 10:40 05/10/24 05/11/24 05/11/24 22:59 06:59 14:59 Intake Total 3010 / 3010 Output Total 1000 / 1000 Balance 2009 Weight last 48 hrs Weight 63.503 kg Physical Exam Narrative: General exam is an ill-appearing white male, with tachypnea and tachycardia, asking for ice chips. HEENT: Atraumatic and normocephalic. Oropharynx with dry mucous membranes. Neck is supple no lymphadenopathy thyromegaly Cardiovascular tachycardic, regular, no obvious murmur Lungs clear no wheezing or crackles Abdomen is soft nontender positive bowel sounds. No obvious organomegaly exam is deferred Extremities no cyanosis clubbing or edema, cap refill brisk Skin no rash Neuro no focal deficits. Data 05/11/24 09:22 05/11/24 09:22 Other Labs: ABG demonstrated pH 6.94, pCO2 of 9, pO2 of 143 on room air. Liver function test normal with exception of alk phos of 179. Albumin is 3.4 and calcium 8.4. Urinalysis essentially negative with the exception of ketones and glucose. Serum ketones are positive. Chest x-ray which I reviewed no infiltrate EKG which I reviewed demonstrates a heart rate of 120, sinus tachycardia, peaked T waves, normal axis Micro: Microbiology 05/11/24 10:37 Blood Culture - Preliminary Blood SPECIMEN COLLECTED 05/11/24 10:34 Blood Culture - Preliminary Blood SPECIMEN COLLECTED A&P Assessment and plan (1) DKA (diabetic ketoacidosis): Patient presents with DKA Unknown compliance with insulin DKA protocol instituted Continue aggressive fluid rehydration as patient is significantly dehydrated on admission Close follow-up of electrolytes with every 4 hour BMPs. Magnesium and phosphorus should be checked intermittently as well. This explains his significant metabolic acidosis. Qualifiers: Diabetes mellitus complication detail: without coma Diabetes mellitus type: type 1 Qualified Code(s): E10.10 - Type 1 diabetes mellitus with ketoacidosis without coma (2) Acute hyperkalemia: Patient with significant hyperkalemia. This should come down with aggressive fluid hydration. It was likely he will need potassium supplementation eventually, and will start with potassium fluids when his potassium level is less than 5. (3) Acute hyponatremia: Patient with evidence of pseudohyponatremia, which is corrected completely when taking into account his sugar over 800 Close follow-up of electrolytes. (4) Acute kidney injury: Patient with evidence of acute kidney injury secondary to dehydration and DKA Follow renal function closely (5) Altered mental status: Patient with acute encephalopathy secondary to DKA, monitor for resolution Qualifiers: Altered mental status type: somnolence Qualified Code(s): R40.0 - Somnolence (6) Leukocytosis: Patient with evidence of significant leukocytosis. This is likely demargination from stress. No evidence of acute infection at this time. Continue to follow Plan History of drug use. Secondary to history of drug use and leukocytosis a blood culture was obtained. Hold off on any antibiotics at this time. Multiple other medical problems as outlined in past medical history Full code Low risk, no DVT prophylaxis Protonix for GI prophylaxis Attestations Medical Necessity Statement*: Will need greater than 2 midnight stay for evaluation and treatment of DKA considering severity of presentation with pH less than 7, severe metabolic acidosis, acute kidney injury. Critical Care Time: The high probability of a clinically significant, sudden or life threatening deterioration of the patient's [endocrine, metabolic, renal, neurologic] system(s) required my full and direct attention, intervention and personal management. The critical care time is as shown. This time is in addition to time spent performing any reported procedures but includes the following: [x] Data and vital sign review and interpretation [x] Patient assessment, examination and intervention [x] Documentation [x] Medication orders and management Critical Care Time (min): 50 Coding Level of Care Code Critical Care >/= 30 minutes Critical care time (in minutes): 50 The high probability of a clinically significant, sudden or life threatening deterioration, as referenced in this documentation, required my full and direct attention, intervention and personal management. The critical care time shown is in addition to time spent performing any reported separately billable procedures and includes the following: [x] Data and vital sign review and interpretation [x] Patient assessment, examination and intervention [x] Medication orders and management [x] Patient/Family updates as able [x] Care Coordination and Documentation. Diagnoses DKA (diabetic ketoacidosis) E10.10 Diabetes mellitus complication detail: without coma Diabetes mellitus type: type 1 Acute hyperkalemia E87.5 Acute hyponatremia E87.1 Acute kidney injury N17.9 Altered mental status R40.0 Altered mental status type: somnolence Leukocytosis D72.829
[2024-05-11 11:08] LABS: Anion Gap 39.4 (5-19); Blood Urea Nitrogen 25 mg/dL (6-20); Calcium 8.1 mg/dL (8.5-10.5); Chloride 92 mmol/L (98-107); Glomerular Filtration Rate 56.1 mL/min (90-130); Osmolality Calculated 302 mOsm/kg (285-295); Potassium 5.4 mmol/L (3.5-5.1); Sodium 128 mmol/L (136-145)
[2024-05-11 11:21] LABS: Carbon Dioxide 2 mmol/L (22-29); Glucose 673 mg/dL (65-115)
[2024-05-11 11:45] LABS: Glucose Point of Care > 600 mg/dL (70-110)
[2024-05-11 12:47] LABS: Glucose Point of Care 492 mg/dL (70-110)
[2024-05-11 13:19] LABS: Glucose Point of Care 342 mg/dL (70-110)
[2024-05-11 14:16] LABS: Glucose Point of Care 264 mg/dL (70-110)
[2024-05-11 14:29] LABS: Blood Urea Nitrogen 21 mg/dL (6-20); Calcium 7.8 mg/dL (8.5-10.5); Chloride 102 mmol/L (98-107); Creatinine Clr Calc Pharmacy 83.5442; Glomerular Filtration Rate 66.2 mL/min (90-130); Glucose 268 mg/dL (65-115); Osmolality Calculated 290 mOsm/kg (285-295); Sodium 134 mmol/L (136-145)
--- NOTE | 2024-05-11 14:47 | PC.NURSE ---
Admit note Pt here from ER via gurney. Bedside report received. Insulin gtt noted at 6 units/hr and NS at 200. Pt is drowsy but arrousable and pale.
--- NOTE | 2024-05-11 14:48 | PC.NURSE ---
PATIENT LINENS AND CLOTHES CHANGED. PATIENT HAD SKIN BREAKDOWN TO MADISYN AREA. ONCOMING NURSE INFORMED OF FINDINGS. PATIENT PROVIDED NEW LINENS AND GOWN.
[2024-05-11] MEDS: D5-NS 0.45% + KCL 20 mEq 20 MEQ/1,000 ML BAG 125 MEQ IV ×2 (15:03→22:13)
[2024-05-11 15:07] LABS: Anion Gap 30.5 (5-19); Potassium 4.5 mmol/L (3.5-5.1)
[2024-05-11 15:09] LABS: Carbon Dioxide 6 mmol/L (22-29)
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
[2024-05-11 16:10] LABS: Glucose Point of Care 245 mg/dL (70-110)
[2024-05-11 16:10] LABS: Glucose Point of Care 183 mg/dL (70-110)
[2024-05-11 17:25] LABS: Glucose Point of Care 165 mg/dL (70-110)
[2024-05-11] MEDS: nystatin cream 30 gm 1 APPLIC TOPICAL (17:38)
[2024-05-11 18:12] LABS: Glucose Point of Care 205 mg/dL (70-110)
[2024-05-11 18:36] LABS: Anion Gap 20.4 (5-19); Blood Urea Nitrogen 15 mg/dL (6-20); Calcium 7.8 mg/dL (8.5-10.5); Carbon Dioxide 14 mmol/L (22-29); Chloride 104 mmol/L (98-107); Creatinine Clr Calc Pharmacy 125.4209; Glomerular Filtration Rate 101.2 mL/min (90-130); Glucose 222 mg/dL (65-115); Osmolality Calculated 286 mOsm/kg (285-295); Potassium 4.4 mmol/L (3.5-5.1); Sodium 134 mmol/L (136-145)
[2024-05-11 19:13] LABS: Glucose Point of Care 208 mg/dL (70-110)
[2024-05-11 20:06] LABS: Glucose Point of Care 242 mg/dL (70-110)
[2024-05-11 21:01] LABS: Glucose Point of Care 246 mg/dL (70-110)
[2024-05-11 21:57] LABS: Glucose Point of Care 230 mg/dL (70-110)
[2024-05-11 23:03] LABS: Glucose Point of Care 249 mg/dL (70-110)
[2024-05-11 23:43] LABS: Anion Gap 18.4 (5-19); Blood Urea Nitrogen 13 mg/dL (6-20); Calcium 7.9 mg/dL (8.5-10.5); Carbon Dioxide 16 mmol/L (22-29); Chloride 104 mmol/L (98-107); Creatinine Clr Calc Pharmacy 125.4209; Glomerular Filtration Rate 101.2 mL/min (90-130); Glucose 287 mg/dL (65-115); Magnesium 1.8 mg/dL (1.7-2.3); Osmolality Calculated 289 mOsm/kg (285-295); Phosphorus 2.5 mg/dL (2.5-4.5); Potassium 4.4 mmol/L (3.5-5.1); Sodium 134 mmol/L (136-145)
[2024-05-12] VITALS (54 sets, daily range): BP systolic 113–154; BP diastolic 70–103; PULSE 95–114; RESP 11–23; TEMP 36.9–37.4; O2SAT 97–100; BMI 22.4
[2024-05-12 00:07] LABS: Glucose Point of Care 240 mg/dL (70-110)
[2024-05-12 01:16] LABS: Glucose Point of Care 232 mg/dL (70-110)
[2024-05-12 02:06] LABS: Glucose Point of Care 228 mg/dL (70-110)
[2024-05-12 03:07] LABS: Glucose Point of Care 214 mg/dL (70-110)
[2024-05-12 04:13] LABS: Glucose Point of Care 213 mg/dL (70-110)
[2024-05-12 05:00] LABS: Glucose Point of Care 243 mg/dL (70-110)
[2024-05-12 05:33] LABS: Basophils % 0.3 %; Eosinophils % 0.2 %; Hematocrit 36.7 % (37-53); Lymphocytes # 2.2 10^3/uL (0.8-4.8); Lymphocytes % 16.3 %; Mean Corpuscular Hemoglobin 27.9 pg (27-33); Mean Corpuscular Volume 84.6 fl (82-101); Monocytes % 7.4 %; Neutrophils # 9.95 10^3/uL (1.8-7.7); Neutrophils % 75.3 %; Nucleated Red Blood Cells % 0 %; Platelet Count 249 10^3/cmm (157-399); Red Blood Count 4.34 10^6/uL (3.85-5.65); Red Cell Distribution Width 13.3 % (12.1-15.1); White Blood Count 13.22 10^3/uL (3.29-11.43)
[2024-05-12 05:55] LABS: Alanine Aminotransferase 12 U/L (0-41); Albumin Level 3.1 g/dL (3.5-5.2); Alkaline Phosphatase 112 U/L (40-130); Anion Gap 14.4 (5-19); Aspartate Amino Transferase 8 U/L (0-40); Blood Urea Nitrogen 9 mg/dL (6-20); Calcium 7.9 mg/dL (8.5-10.5); Carbon Dioxide 18 mmol/L (22-29); Chloride 104 mmol/L (98-107); Creatinine Clr Calc Pharmacy 141.5655; Globulin 1.9 g/dL (1.3-4.6); Glucose 241 mg/dL (65-115); Osmolality Calculated 283 mOsm/kg (285-295); Potassium 3.4 mmol/L (3.5-5.1); Sodium 133 mmol/L (136-145); Total Bilirubin 0.3 mg/dL (0.15-1.2)
[2024-05-12] MEDS: D5-NS 0.45% + KCL 20 mEq 20 MEQ/1,000 ML BAG 125 MEQ IV (06:07)
[2024-05-12] MEDS: insulin glargine 100 units/1 mL 20 UNIT SUBCUT (07:31)
[2024-05-12] MEDS: lactated ringers 1,000 ML 75 ML IV (07:36)
[2024-05-12] MEDS: potassium chloride ER 20 mEq Tablet 40 MEQ PO (07:36)
[2024-05-12 07:59] LABS: Glucose Point of Care 175 mg/dL (70-110)
[2024-05-12] MEDS: insulin lispro 100 unit/1 mL SUBCUT (08:14)
[2024-05-12] MEDS: nystatin cream 30 gm 1 APPLIC TOPICAL (08:14)
--- NOTE | 2024-05-12 09:36 | PC.NURSE ---
As far as the nurse and the patient knows, none of his family is aware he is in the hospital. He requested i try and call them since they will be his ride home, he is likely to get discharged later today. Nurse attempted to call the numbers on file for his mom, step dad, and life partner. No answer. tried other numbers given by the patient - [phone], , , , and [phone]. All [facility]
[2024-05-12 11:45] LABS: Blood Urea Nitrogen 7 mg/dL (6-20); Carbon Dioxide 20 mmol/L (22-29); Chloride 105 mmol/L (98-107); Creatinine Clr Calc Pharmacy 161.7891; Glomerular Filtration Rate 135.3 mL/min (90-130); Glucose 216 mg/dL (65-115); Osmolality Calculated 285 mOsm/kg (285-295); Sodium 135 mmol/L (136-145)
[2024-05-12 11:46] LABS: Anion Gap 13.9 (5-19); Potassium 3.9 mmol/L (3.5-5.1)
--- NOTE | 2024-05-12 11:57 | P.DS_ITS ---
Discharge Providers Date of Admission: 05/11/24 10:16 Date of Discharge: May 12, 2024 Attending Provider at Admission: Ford Carvajal MD Attending Provider at Discharge: Ford Carvajal MD Primary Care Provider: Adi Castellon MD Diagnoses at Discharge Discharge Diagnosis (1) DKA (diabetic ketoacidosis): Status: Acute Qualifiers: Diabetes mellitus complication detail: without coma Diabetes mellitus type: type 1 Qualified Code(s): E10.10 - Type 1 diabetes mellitus with ketoacidosis without coma (2) Acute hyperkalemia: Status: Acute (3) Acute hyponatremia: Status: Acute (4) Acute kidney injury: Status: Acute (5) Altered mental status: Status: Acute Qualifiers: Altered mental status type: somnolence Qualified Code(s): R40.0 - Somn olence (6) Leukocytosis: Status: Acute Reason for Visit Reason for Visit: hyperglycemia Hospital Course Hospital Course Patient is a 29-year-old white male who presented from retirement to the emergency department with acute encephalopathy, secondary to DKA. It was unknown his compliance with insulin. He was given a significant amount of IV fluids, and then was placed on an insulin drip DKA protocol. With this his acidosis slowly resolved, with normalization of his anion gap by 7/30 in the morning. He was put on long-acting insulin, and was able to eat eat and drink normally. With the long-acting insulin as well as sliding scale it was out of his BMP was rechecked in the afternoon, and his gap was still closed. It was thought he could discharge home, with follow-up as an outpatient in 3 to 5 days. He was encouraged to use his insulin regularly, follow a consistent carb diet, return for any concerns. He was given opportunity ask questions and agreed with the plan. Physical Exam Narrative: General exam no distress Neck is supple Cardiovascular regular rate and rhythm Lungs clear Abdomen soft Extremities no cyanosis clubbing edema Discharge Data Studies Completed and Pending Completed Studies During Hospitalization Category Date Time Status XR chest 1V portable [id number] Urgent Exams 05/11/24 09:04 Completed Pending at discharge Category Date Time Status Blood Culture Stat Lab 05/11/24 10:37 Results Radiology Impressions Chest X-Ray 05/11/24 09:04 IMPRESSION: No acute findings. Laboratory Results WBC 13.22 10^3/uL (3.29-11.43) H 05/12/24 04:29 RBC 4.34 10^6/uL (3.85-5.65) 05/12/24 04:29 Hgb 12.10 g/dL (11.27-16.99) 05/12/24 04:29 Hct 36.7 % (37-53) L 05/12/24 04: MCV 84.6 fl (82-101) D 05/12/24 04:29 MCH 27.9 pg (27-33) 05/12/24 04: MCHC 33.0 g/dL (30-55) D 05/12/24 04:29 RDW 13.3 % (12.1-15.1) 05/12/24 04: Plt Count 249 10^3/cmm (157-399) 05/12/24 04:29 MPV 11.0 fL (7.4-10.4) H 05/12/24 04:29 Neut % (Auto) 75.3 % 05/12/24 04:29 Lymph % (Auto) 16.3 % 05/12/24 04:29 [place] % (Auto) 7.4 % 05/12/24 04:29 Eos % (Auto) 0.2 % 05/12/24 04:29 Baso % (Auto) 0.3 % 05/12/24 04:29 Neut # (Auto) 9.95 10^3/uL (1.8-7.7) H 05/12/24 04:29 Lymph # (Auto) 2.2 10^3/uL (0.8-4.8) 05/12/24 04:29 [place] # (Auto) 1.0 10^3/uL (0.2-0.9) H 05/12/24 04:29 Eos # (Auto) 0.0 10^3/uL (0.0-0.8) 05/12/24 04:29 Baso # (Auto) 0.0 10^3/uL (0.0-0.1) 05/12/24 04:29 Nucleated RBC % (auto) 0 % 05/12/24 04:29 Nucleated RBCs # 0.0 /100WBC 05/12/24 04:29 Specimen Type Arterial 05/11/24 10:28 Sample Site Radial, left 05/11/24 10:28 ABG pH 6.94 (7.35-7.45) L* 05/11/24 10:28 ABG pCO2 9.2 mmHg (35-45) L* 05/11/24 10:28 ABG pO2 143.0 mmHg (80.0-100.0) H 05/11/24 10:28 ABG PO2/FiO2 Ratio 680 05/11/24 10:28 ABG HCO3 2.0 mmol/L (22-26) L 05/11/24 10:28 ABG O2 Saturation 98.1 05/11/24 09:06 ABG Base Excess -28.6 mmol/L (-2.0-2.0) L 05/11/24 10:28 [place]re[place] Test Pos 05/11/24 10:28 A-a O2 Gradient Not Reportable 05/11/24 09:06 Hematocrit 41.9 % (42-52) L 05/11/24 10:28 Hgb O2 Saturation 95.8 % (95-100) 05/11/24 09:06 Carboxyhemoglobin 0.6 %THgb (0.4-20.1) 05/11/24 09:06 Methemoglobin 1.7 % (0.4-1.5) H 05/11/24 09:06 Total Hemoglobin 13.6 g/dL (14-18) L 05/11/24 09:06 Sodium 122.0 mmol/L (131-143) L 05/11/24 09:06 Potassium 6.3 mmol/L (3.5-5.0) H 05/11/24 09:06 Glucose 805.0 mg/dL (70-115) H 05/11/24 09:06 Ionized Calcium 1.2 mmol/L (1.1-1.4) 05/11/24 09:06 O2 Delivery Device Room air 05/11/24 10:28 FiO2 21.0 % 05/11/24 10:28 Laboratory Scientist ID Niesha 05/11/24 10:28 Sodium 135 mmol/L (136-145) L 05/12/24 11:07 Potassium 3.9 mmol/L (3.5-5.1) 05/12/24 11:07 Chloride 105 mmol/L (98-107) 05/12/24 11:07 Carbon Dioxide 20 mmol/L (22-29) L 05/12/24 11:07 Anion Gap 13.9 (5-19) 05/12/24 11:07 BUN 7 mg/dL (6-20) 05/12/24 11:07 Creatinine 0.7 mg/dL (0.7-1.2) 05/12/24 11:07 GFR Calculation 135.3 mL/min (90-130) H 05/12/24 11:07 Glucose 216 mg/dL (65-115) H 05/12/24 11:07 POC Glucose 175 mg/dL (70-110) H 05/12/24 07:19 Calculated Osmolality 285 mOsm/kg (285-295) 05/12/24 11:07 Calcium 8.0 mg/dL (8.5-10.5) L 05/12/24 11:07 Phosphorus 2.5 mg/dL (2.5-4.5) D 05/11/24 22:34 Magnesium 1.8 mg/dL (1.7-2.3) 05/11/24 22:34 Total Bilirubin 0.3 mg/dL (0.15-1.2) 05/12/24 04:29 AST 8 U/L (0-40) 05/12/24 04:29 ALT 12 U/L (0-41) 05/12/24 04:29 Alkaline Phosphatase 112 U/L (40-130) 05/12/24 04:29 Total Protein 5.0 g/dL (6.6-8.7) L 05/12/24 04:29 Albumin 3.1 g/dL (3.5-5.2) L 05/12/24 04:29 Globulin 1.9 g/dL (1.3-4.6) 05/12/24 04:29 Urine Color Yellow (Yellow) 05/11/24 09:46 Urine Appearance Clear (CLEAR) 05/11/24 09:46 Urine pH 5 (5-7) 05/11/24 09:46 Ur Specific [place] 1.020 (1.005-1.030) 05/11/24 09:46 Urine Protein Neg (Negative) 05/11/24 09:46 Urine Glucose (UA) 4+ (Normal) H 05/11/24 09:46 Urine Ketones 3+ (Negative) H 05/11/24 09:46 Urine Blood Trace (Negative) H 05/11/24 09:46 Urine Nitrate Negative (Negative) 05/11/24 09:46 Urine Bilirubin Neg (Negative) 05/11/24 09:46 Urine Urobilinogen Norm mg/dL (Negative) 05/11/24 09:46 Ur Leukocyte Esterase Negative (Negative) 05/11/24 09:46 Urine RBC Rare /hpf (0-2) 05/11/24 09:46 Urine WBC Rare /hpf (0-5) 05/11/24 09:46 Ur Squamous Epith Cells None /hpf (0-5) 05/11/24 09:46 Amorphous Sediment Not Reportable 05/11/24 09:46 Urine Bacteria Trace /hpf (NONE) 05/11/24 09:46 Serum Ketones Positive (Negative) H 05/11/24 09:22 Vitals Last Vital Signs Temp 98.5 F 05/12/24 07:00 Pulse 107 H 05/12/24 09:00 Resp 14 05/12/24 09:00 BP 147/91 05/12/24 09:00 Pulse Ox 100 05/12/24 09:00 O2 Del Method Room Air 05/12/24 08:40 O2 Flow Rate 3 05/12/24 02:00 Discharge Plan Discharge Patient Disposition: Home Condition: Stable Prescriptions: Continued (DME) blood-glucose meter [OneTouch Ultra2 Meter] Kit See Rx Instructions .Route Qty: 1 0RF Rx Instructions: To use TID to check blood sugar levels before taking insulin insulin aspart U-100 [Novolog FlexPen U-100 Insulin] 100 unit/mL (3 mL) insulin pen 10 unit SUBCUT TID Qty: 15 3RF Levemir FlexPen 100 unit/mL (3 mL) insulin pen 30 unit SUBCUT QPM Qty: 15 2RF (DME) blood sugar diagnostic Strip See Rx Instructions .Route Qty: 300 3RF Rx Instructions: To use TID in onetouch meter to check blood sugar, 90 day supply Discharge Orders: Discharge Order (Routine); Ordered 05/12/24 Ordered By: Ford Carvajal Referrals: Adi Castellon MD [Primary Care Provider] - 05/15/24 12:15 pm Discharge Diet: Diabetic Patient Instructions: Diabetic Ketoacidosis (DC), Leukocytosis (DC), Opioid Safety Activity Restrictions/Additional Instructions: Follow-up with your primary care provider in 3 to 5 days Take all medication as prescribed Consider follow-up with endocrinology. Have your primary care provider refer you if they believe it is appropriate No drug use. Discharge Attestations Time Spent in Discharge Care*: greater than 30 min Status at Discharge: Cognitive status at discharge: cognitively intact , Behavioral status at discharge: cooperative , Quality Metrics Clinical Quality Measures [ No reported AMI, CVA or VTE this stay] Coding Level of Care Code 74657 Total time (in minutes) for Discharge: 37 Diagnoses DKA (diabetic ketoacidosis) E10.10 Diabetes mellitus complication detail: without coma Diabetes mellitus type: type 1 Acute hyperkalemia E87.5 Acute hyponatremia E87.1 Acute kidney injury N17.9 Altered mental status R40.0 Altered mental status type: somnolence Leukocytosis D72.829
--- NOTE | 2024-05-12 12:39 | PC.NURSE ---
Discharged patient. Bilateral IVs removed. New upcoming appointment with primary provider discussed. No new medications, nurse confirmed with the patient that he has insulin at home and does not need refill. Patient received lantus this morning, but departed without receiving afternoon dose of insulin, states that he is going straight home and will take his insulin at home when he eats. Nurse assisted patient out to main entrance via wheelchair, nurse reminded patient of the importance of taking his insulin at home with a meal.
[2024-05-12 13:06] LABS: Glucose Point of Care 205 mg/dL (70-110)
[2024-05-12 13:06] LABS: Glucose Point of Care 205 mg/dL (70-110)
== END 2024-05-12 12:50 | disposition home or self-care (01) | DRG 638 ==
LOC: ER 09:50 → ER IP 10:16 → ICU 13:18
PROVIDERS: Physician Assistant; Admitting Provider Internal Medicine; Emergency Provider Family Medicine; PCP Family Medicine; Visit Provider Internal Medicine
DX: E10.10 Type 1 diabetes mellitus with ketoacidosis without coma (principal); E87.1 Hypo-osmolality and hyponatremia; N17.9 Acute kidney failure, unspecified; G93.40 Encephalopathy, unspecified; Z79.4 Long term (current) use of insulin; E87.5 Hyperkalemia; I10 Essential (primary) hypertension; D72.829 Elevated white blood cell count, unspecified; F15.90 Other stimulant use, unspecified, uncomplicated; F17.210 Nicotine dependence, cigarettes, uncomplicated
CPT/HCPCS: 36415; 36416; 36600; 71045; 80048; 80051; 80053; 81001; 82009; 82330; 82803; 82805; 82962; 83735; 84100; 85025; 87040; 93005; 96365; 96366; 96372; 96375; 99291; J1815; J7030; J7120

== ENCOUNTER 2024-05-28 16:30 | Inpatient (IN) | payer MEDICAID, SELFPAY ==
[2024-05-28] VITALS (9 sets, daily range): BP systolic 106–140; BP diastolic 62–90; PULSE 104–132; RESP 18–20; TEMP 36.8; O2SAT 99–100; BMI 21.4
[2024-05-28 17:15] LABS: Basophils % 0.4 %; Hematocrit 38.7 % (37-53); Lymphocytes # 1.1 10^3/uL (0.8-4.8); Lymphocytes % 11.2 %; Mean Corpuscular HGB Conc 31.8 g/dL (30-55); Mean Corpuscular Hemoglobin 27.8 pg (27-33); Mean Corpuscular Volume 87.4 fl (82-101); Mean Platelet Volume 10.6 fL (7.4-10.4); Monocytes # 0.7 10^3/uL (0.2-0.9); Neutrophils # 7.92 10^3/uL (1.8-7.7); Nucleated Red Blood Cells % 0 %; Platelet Count 266 10^3/cmm (157-399); Red Blood Count 4.43 10^6/uL (3.85-5.65); White Blood Count 9.77 10^3/uL (3.29-11.43)
[2024-05-28 17:38] LABS: Alanine Aminotransferase 27 U/L (0-41); Albumin Level 3.6 g/dL (3.5-5.2); Alkaline Phosphatase 154 U/L (40-130); Anion Gap 19.6 (5-19); Aspartate Amino Transferase 27 U/L (0-40); Blood Urea Nitrogen 18 mg/dL (6-20); Calcium 8.5 mg/dL (8.5-10.5); Carbon Dioxide 22 mmol/L (22-29); Chloride 94 mmol/L (98-107); Creatinine Clr Calc Pharmacy 83.5442; Globulin 2.7 g/dL (1.3-4.6); Glomerular Filtration Rate 66.2 mL/min (90-130); Glucose 360 mg/dL (65-115); Osmolality Calculated 290 mOsm/kg (285-295); Potassium 3.6 mmol/L (3.5-5.1); Sodium 132 mmol/L (136-145); Total Bilirubin 0.2 mg/dL (0.15-1.2); Total Protein 6.3 g/dL (6.6-8.7)
[2024-05-28] MEDS: sodium chloride 0.9% 1,000 ML 999 ML IV ×2 (18:43→19:19)
[2024-05-28 18:47] LABS: Erythrocyte Sedimentation Rate 21 mm/hr (0-10)
[2024-05-28 18:49] LABS: C Reactive Protein 52.7 mg/L (0.0-4.9)
--- NOTE | 2024-05-28 18:57 | W.ED.EXTPRO ---
HPI - Extremity Problem General: Chief complaint: Extremity Injury, Lower Stated complaint: leg infection Time Seen by Provider: 05/28/24 18:03 History of Present Illness: 29-year-old man with poorly controlled type 1 diabetes who presents emergency room with cellulitis over his left knee. If symptoms clinic with expectation to be admitted for the cellulitis for IV antibiotics. He is tachycardic on presentation. Blood pressure soft. This started a couple of days ago he says with a small pimple that he had squeezed on his leg. Now has swelling over the anterior surface of his knee and going up into his thigh a little bit. No pain inside the joint. This seems to be all superficial. I do not think he has a joint infection. He does not know if he has had any fevers. No chest pain. No shortness of breath. No abdominal pain. No nausea or vomiting. Related Data Previous Rx's Medication Instructions Recorded blood-glucose meter (OneTouch #1 ea 04/02/22 Ultra2 Meter kit) blood sugar diagnostic #300 ea 05/12/22 insulin aspart U-100 100 unit/mL 10 unit (0.1 mL) SUBCUT TID #15 mL 02/10/24 (3 mL) subcutaneous pen (Novolog FlexPen U-100 Insulin aspart) insulin detemir U-100 100 unit/mL 30 unit (0.3 mL) SUBCUT QPM #15 mL 02/10/24 (3 mL) subcutaneous pen (Levemir FlexPen) Allergies Allergy/AdvReac Type Severity Reaction Status Date / Time No Known Allergies Allergy Verified 05/11/24 09:19 Review of Systems Narrative: Constitutional symptoms: Negative except as documented in HPI. Skin symptoms: Negative except as documented in HPI. Eye symptoms: Negative except as documented in HPI. ENMT symptoms: Negative except as documented in HPI. Respiratory symptoms: Negative except as documented in HPI. Cardiovascular symptoms: Negative except as documented in HPI. Gastrointestinal symptoms: Negative except as documented in HPI. Genitourinary symptoms: Negative except as documented in HPI. Musculoskeletal symptoms: Negative except as documented in HPI. Neurologic symptoms: Negative except as documented in HPI. Psychiatric symptoms: Negative except as documented in HPI. Endocrine symptoms: Negative except as documented in HPI. [facility] ED PFSH: Medical History (Updated 05/28/24 @ 19:25 by Lyndon Valera MD) Metabolic acidosis Acute kidney injury DKA, type 1 Nicotine dependence, cigarettes, uncomplicated Hypokalemia Polysubstance abuse DKA (diabetic ketoacidosis) Type 1 diabetes mellitus, uncontrolled DKA (diabetic ketoacidosis) History of thyroid nodule right complex nodule, FNA showed benign 03/2022 Transaminitis Hypertension Hyperthyroidism subclinical Amphetamine abuse Long-term insulin use Diabetes type 1, uncontrolled History of DKA Surgical History History of tonsillectomy Family History Other Family history unknown Social History Smoking and tobacco/nicotine status: current every day tobacco/nicotine user cigarettes Packs smoked per day: 1 Alcohol intake: former Substance/Drug Use: current Physical Exam Narrative: EXAM NARRATIVE: General: Alert, no acute distress. Skin: Warm, dry. Large area of induration, erythema and warmth over the left knee with a central area that appears to have been opened and was draining. There is no fluctuance or sign of abscess. Head: Normocephalic, atraumatic. Neck: Supple, trachea midline. Eye: Extraocular movements are intact. Ears, nose, mouth and throat: mucosa moist. Cardiovascular: Regular, tachycardic, normal peripheral perfusion. Respiratory: Lungs are clear to auscultation, respirations are non-labored, breath sounds are equal, Symmetrical chest wall expansion. Gastrointestinal: Soft, Nontender, Non distended Musculoskeletal: Normal ROM, no deformity. No pain inside joint with movement Neurological: Alert and oriented, No focal neurological deficit observed. Psychiatric: Cooperative, appropriate mood & affect. Course Vital Signs: Vital signs: Vital Signs Temperature 98.2 F 05/28/24 16:39 Pulse Rate 111 H 05/28/24 19:24 Respiratory Rate 20 H 05/28/24 16:39 Blood Pressure 133/86 05/28/24 19:24 Pulse Oximetry 100 05/28/24 19:24 Oxygen Delivery Me thod Room Air 05/28/24 18:40 MDM - Extremity (Nontraumatic) Medical Decision Making Medical decision making: Differential diagnosis including but not limited to and based on the above HPI, review of systems and physical exam: Patient with cellulitis. Concern for sepsis with tachycardia. Septic workup was initiated. Orders placed to evaluate differential diagnosis based on the above differential, HPI and physical exam Lab Review: Laboratory results were reviewed and interpreted by myself the emergency room physician. White count is only 10 but is 81% neutrophils. Hemoglobin is 12.3. Sugar have been reported to be just 180 but is 360 on his BMP. BUN and creatinine are elevated at 18 and 1.3. His baseline is about 0.7. He is not quite acidotic at this point with a bicarb of 22 but I would have concern that he could quickly become acidotic. I reviewed the patient's medical record. Reexamination: Patient remained stable. No increased work of breathing. No altered mental status. No focal motor deficits. Consultation: I spoke with Dr. Valera who is on-call for the hospitalist service and who is admitting the patient. Assessment and plan: Cellulitis Type 1 diabetes Hyperglycemia Acute renal failure Dehydration I would have concern for sepsis as well. -2 L normal saline bolus and broad-spectrum antibiotics. Zyvox and cefepime for the cellulitis. -Lactate and blood cultures were drawn. Lactate is only 2.2. -I discussed the patient with the hospitalist on-call who is admitting the patient. - Discussed findings and plan with patient. Answered any questions. - All laboratory values were reviewed and interpreted personally by myself, the ER physician - All imaging was reviewed and interpreted personally by myself, the ER physician. - Evaluation and treatment of this problem were appropriate in the emergency setting Lab Data 05/28/24 17:06 05/28/24 17:06 Laboratory Results WBC 9.77 10^3/uL (3.29-11.43) 05/28/24 17:06 RBC 4.43 10^6/uL (3.85-5.65) 05/28/24 17:06 Hgb 12.30 g/dL (11.27-16.99) 05/28/24 17:06 Hct 38.7 % (37-53) 05/28/24 17:06 MCV 87.4 fl (82-101) 05/28/24 17:06 MCH 27.8 pg (27-33) 05/28/24 17:06 MCHC 31.8 g/dL (30-55) 05/28/24 17:06 RDW 14.0 % (12.1-15.1) 05/28/24 17:06 Plt Count 266 10^3/cmm (157-399) 05/28/24 17:06 MPV 10.6 fL (7.4-10.4) H 05/28/24 17:06 Neut % (Auto) 81.0 % 05/28/24 17:06 Lymph % (Auto) 11.2 % 05/28/24 17:06 [place] % (Auto) 7.0 % 05/28/24 17:06 Eos % (Auto) 0.0 % 05/28/24 17:06 Baso % (Auto) 0.4 % 05/28/24 17:06 Neut # (Auto) 7.92 10^3/uL (1.8-7.7) H 05/28/24 17:06 Lymph # (Auto) 1.1 10^3/uL (0.8-4.8) 05/28/24 17:06 [place] # (Auto) 0.7 10^3/uL (0.2-0.9) 05/28/24 17:06 Eos # (Auto) 0.0 10^3/uL (0.0-0.8) 05/28/24 17:06 Baso # (Auto) 0.0 10^3/uL (0.0-0.1) 05/28/24 17:06 Nucleated RBC % (auto) 0 % 05/28/24 17:06 Nucleated RBCs # 0.0 /100WBC 05/28/24 17:06 ESR 21 mm/hr (0-10) H 05/28/24 17:06 Sodium 132 mmol/L (136-145) L 05/28/24 17:06 Potassium 3.6 mmol/L (3.5-5.1) 05/28/24 17:06 Chloride 94 mmol/L (98-107) L 05/28/24 17:06 Carbon Dioxide 22 mmol/L (22-29) 05/28/24 17:06 Anion Gap 19.6 (5-19) H 05/28/24 17:06 BUN 18 mg/dL (6-20) 05/28/24 17:06 Creatinine 1.3 mg/dL (0.7-1.2) H 05/28/24 17:06 GFR Calculation 66.2 mL/min (90-130) L 05/28/24 17:06 Glucose 360 mg/dL (65-115) H 05/28/24 17:06 Calculated Osmolality 290 mOsm/kg (285-295) 05/28/24 17:06 Lactic Acid 2.2 mmol/L (0.5-2.2) 05/28/24 17:06 Calcium 8.5 mg/dL (8.5-10.5) 05/28/24 17:06 Total Bilirubin 0.2 mg/dL (0.15-1.2) 05/28/24 17:06 AST 27 U/L (0-40) 05/28/24 17:06 ALT 27 U/L (0-41) 05/28/24 17:06 Alkaline Phosphatase 154 U/L (40-130) H 05/28/24 17:06 C-Reactive Protein 52.7 mg/L (0.0-4.9) H 05/28/24 17:06 Total Protein 6.3 g/dL (6.6-8.7) L 05/28/24 17:06 Albumin 3.6 g/dL (3.5-5.2) 05/28/24 17:06 Globulin 2.7 g/dL (1.3-4.6) 05/28/24 17:06 No radiology studies performed this visit Discharge Plan Discharge Patient Disposition: Placed in Observation Clinical Impression: Lower extremity cellulitis, Poorly controlled type 1 diabetes mellitus, Hyperglycemia, Acute renal failure, Dehydration Coding Level of Care Code ED Poultry Vaccinator for Jazmín Agosto
[2024-05-28 19:10] LABS: Lactic Sepsis W/Reflex 2.2 mmol/L (0.5-2.2)
--- NOTE | 2024-05-28 19:12 | P.HP_ITS ---
Providers/Chief Complaint 2 Primary Care Provider: Adi Castellon MD Chief Complaint: leg infection History of Present Illness Jean Miller is a 29 year old male with a past medical history significant for type 1 diabetes mellitus complicated by multiple episodes of diabetic ketoacidosis, hypertension, tobacco use disorder, and methamphetamine abuse who presents to the emergency department with left knee infection. Patient reports symptoms started yesterday. He reports he had a pimple on his left knee which was popped which is now spread significant erythema, swelling, pain, and warmth. He reports exertion makes pain worse. Rest improves the pain. He is unsure whether or not he has been having fevers or chills. Denies difficulty ambulating. Denies other alleviating or aggravating factors. Review of Systems 2 Narrative: A complete review of systems was obtained and is negative except as stated in HPI. Medications/Allergies Home Medications Medication Instructions Recorded Confirmed Last Taken Type blood-glucose meter (OneTouch #1 ea 04/02/22 05/11/24 Unknown Rx Ultra2 Meter kit) blood sugar diagnostic #300 ea 05/12/22 05/11/24 Unknown Rx insulin aspart U-100 100 unit/mL 10 unit (0.1 mL) SUBCUT TID #15 mL 02/10/24 05/11/24 05/10/24 Rx (3 mL) subcutaneous pen (Novolog FlexPen U-100 Insulin aspart) insulin detemir U-100 100 unit/mL 30 unit (0.3 mL) SUBCUT QPM #15 mL 02/10/24 05/11/24 05/10/24 Rx (3 mL) subcutaneous pen (Levemir FlexPen) Allergies Allergy/AdvReac Type Severity Reaction Status Date / Time No Known Allergies Allergy Verified 05/11/24 09:19 PFSH Acute 2 PFSH: Medical History (Updated 05/28/24 @ 19:25 by Lyndon Valera MD) Metabolic acidosis Acute kidney injury DKA, type 1 Nicotine dependence, cigarettes, uncomplicated Hypokalemia Polysubstance abuse DKA (diabetic ketoacidosis) Type 1 diabetes mellitus, uncontrolled DKA (diabetic ketoacidosis) History of thyroid nodule right complex nodule, FNA showed benign 03/2022 Transaminitis Hypertension Hyperthyroidism subclinical Amphetamine abuse Long-term insulin use Diabetes type 1, uncontrolled History of DKA Surgical History History of tonsillectomy Family History Other Family history unknown Social History Smoking and tobacco/nicotine status: current every day tobacco/nicotine user cigarettes Packs smoked per day: 1 Alcohol intake: former Substance/Drug Use: current Vitals/I&O/Wt Last Vital Signs Temp 98.2 F 05/28/24 16:39 Pulse 117 H 05/28/24 18:40 Resp 20 H 05/28/24 16:39 BP 129/84 05/28/24 18:40 Pulse Ox 100 05/28/24 18:40 O2 Del Method Room Air 05/28/24 18:40 Weight last 48 hrs Weight 63.503 kg Physical Exam 2 Narrative: General: Patient is awake and alert. Head: Normocephalic. Atraumatic. EOM intact. Neck: No JVD. Cardiovascular: Tachycardic. Regular rhythm. No gallops. No murmurs. No peripheral edema. Lungs: Clear to auscultation, no use of accessory muscles, no crackles or wheezes. Skin: No jaundice. No rashes. There is erythema, warmth, and swelling of skin surrounding left knee. It is tender to palpation in this region. Abdomen: Normal bowel sounds, abdomen soft and nontender. Genito Urinary: Genital exam not performed since complaints not related. Rectal: Rectal exam not performed since no symptoms indicated blood loss. Extremities: No cyanosis or clubbing. Musculoskeletal: Left knee as above. Neurological: Moves all 4 extremities. No myoclonus. Data 05/28/24 17:06 05/28/24 17:06 Micro: Microbiology 05/28/24 17:10 Blood Culture - Preliminary Blood SPECIMEN COLLECTED 05/28/24 17:06 Blood Culture - Preliminary Blood SPECIMEN COLLECTED A&P Assessment and plan (1) Lower extremity cellulitis: Cellulitis with high risk of developing sepsis in the setting of brittle type 2 diabetes mellitus with dehydration Start vancomycin Start ceftriaxone MRSA screen Serial exams Supportive care (2) Acute kidney injury: Admission creatinine 1.3, previously 0.7 Start IV fluid hydration Avoid nephrotoxins (3) Dehydration: Patient is high risk for worsening condition with dehydration, MICHAEL, metabolic acidosis Patient is currently tachycardic Start IV hydration (4) Metabolic acidosis: High risk for progressing into diabetic ketoacidosis Start aggressive control of infection Optimize glycemic control Hydration Monitor electrolytes (5) Poorly controlled type 1 diabetes mellitus: History of poorly controlled type 1 diabetes mellitus with hyperglycemia History of multiple diabetic ketoacidosis episodes Continue long-acting insulin Aggressive short acting insulin Monitor blood sugars closely Supportive care Plan DVT prophylaxis: Lovenox CODE STATUS: Full code Attestations 2 Medical Necessity Statement*: Patient presents with left knee cellulitis, found to have multiple metabolic derangements concerning for development of sepsis and DKA if treatment is not initiated promptly for which patient is admitted to the hospital under observation with anticipated care not to cross 2 midnights for IV fluids, IV antibiotics, monitoring of electrolytes, glycemic control and supportive care. Coding Level of Care Code Acute Code for [facility] Diagnoses Lower extremity cellulitis L03.119 Acute kidney injury N17.9 Dehydration E86.0 Metabolic acidosis E87.20 Poorly controlled type 1 diabetes mellitus E10.65
[2024-05-28] MEDS: cefepime 2,000 MG in sodium chloride 0.9% (plus) 50 ML 100 MG IV (19:19)
[2024-05-28] MEDS: linezolid premix 600 MG/300 ML PREMIX 300 MG IV (19:21)
--- NOTE | 2024-05-28 20:04 | PC.NURSE ---
Report was called to Tammy RODRIGUEZ on [place]. All questions and concerns were addressed at time of report.
[2024-05-28 20:16] LABS: Reflex Lactate Order REFLEX LACTIC ORDERD
[2024-05-28] MEDS: enoxaparin 40 mg/0.4 mL Syringe SUBCUT (20:16)
[2024-05-28] MEDS: vancomycin 1,000 MG in sodium chloride 0.9% 250 ML 250 MG IV (20:17)
[2024-05-28] MEDS: cefTRIAXone 1,000 mg SDV 1000 MG IVP (20:18)
[2024-05-28] MEDS: sodium chloride 0.9% 1,000 ML 125 ML IV (20:22)
--- NOTE | 2024-05-28 20:33 | PC.NURSE ---
When asked if patient would like to be placed in patient in ED or on the floor, patient refused gown, stating I'm already in a gown.
[2024-05-28] MEDS: potassium chloride ER 20 mEq Tablet 40 MEQ PO (20:51)
[2024-05-28] MEDS: oxyCODONE 5 mg IR Tab/Cap PO (20:51)
--- NOTE | 2024-05-28 20:56 | PHA.VACGOAL ---
Vancomycin Goal - Therapy Day of therpy:: Day []of [] . 1 Actual body weight (kg): 149 lb 1 oz - Data Labs: WBC 9.77 10^3/uL (3.29-11.43) 05/28/24 17:06 RBC 4.43 10^6/uL (3.85-5.65) 05/28/24 17:06 Hgb 12.30 g/dL (11.27-16.99) 05/28/24 17:06 Hct 38.7 % (37-53) 05/28/24 17:06 MCV 87.4 fl (82-101) 05/28/24 17:06 MCH 27.8 pg (27-33) 05/28/24 17:06 MCHC 31.8 g/dL (30-55) 05/28/24 17:06 RDW 14.0 % (12.1-15.1) 05/28/24 17:06 Sodium 132 mmol/L (136-145) L 05/28/24 17:06 Potassium 3.6 mmol/L (3.5-5.1) 05/28/24 17:06 Chloride 94 mmol/L (98-107) L 05/28/24 17:06 Carbon Dioxide 22 mmol/L (22-29) 05/28/24 17:06 Anion Gap 19.6 (5-19) H 05/28/24 17:06 BUN 18 mg/dL (6-20) 05/28/24 17:06 Creatinine 1.3 mg/dL (0.7-1.2) H 05/28/24 17:06 GFR Calculation 66.2 mL/min (90-130) L 05/28/24 17:06 Last dialysis session:: N/A Treatment plan:: new consult (1,000 MG Q12H)
[2024-05-28 20:59] LABS: Glucose Point of Care 490 mg/dL (70-110)
[2024-05-28] MEDS: insulin lispro 100 unit/1 mL SUBCUT (21:02)
--- NOTE | 2024-05-28 21:26 | PC.NURSE ---
Pt's BG was 490 upon arrival to med surg. Sliding scale indicates giving 18 units of insulin. Pt states when his BG is that high at home he only takes 12 units and is not comfortable getting [address] Valera notified and stated it is okay to give pt 12 units and recheck BG in an hour.
--- NOTE | 2024-05-28 22:17 | PC.NURSE ---
Pt's BG is 452 after receiving 12 units of humalog subcut. Dr. Valera notified and ordered 10 units of regular insulin IVP. This nurse notified pt of the doctors orders and pt stated, hell no, he's trying to kill me. This nurse educated pt on the mechanism of action for regular insulin and the importance of getting his BG within normal parameters. Pt is agreeable to receive the 10 units of regular insulin IVP.
[2024-05-28 22:20] LABS: Glucose Point of Care 452 mg/dL (70-110)
[2024-05-28] MEDS: insulin regular-human 100 units/1 mL 10 UNIT IVP (22:45)
[2024-05-29] VITALS (9 sets, daily range): BP systolic 120–131; BP diastolic 73–86; PULSE 97–111; RESP 15–18; TEMP 36.8–37.6; O2SAT 96–99
[2024-05-29 00:04] LABS: Glucose Point of Care 172 mg/dL (70-110)
[2024-05-29 00:45] LABS: Lactic Acid level (Lactate) 4.1 mmol/L (0.5-2.2)
[2024-05-29] MEDS: sodium chloride 0.9% 1,000 ML 125 ML IV ×3 (03:47→22:41)
[2024-05-29 05:10] LABS: Basophils % 0.4 %; Hematocrit 36.3 % (37-53); Lymphocytes # 1.2 10^3/uL (0.8-4.8); Lymphocytes % 12.9 %; Mean Corpuscular HGB Conc 31.1 g/dL (30-55); Mean Corpuscular Hemoglobin 27.4 pg (27-33); Mean Corpuscular Volume 88.1 fl (82-101); Mean Platelet Volume 10.9 fL (7.4-10.4); Monocytes # 0.8 10^3/uL (0.2-0.9); Monocytes % 8.4 %; Nucleated Red Blood Cells % 0 %; Platelet Count 218 10^3/cmm (157-399); Red Blood Count 4.12 10^6/uL (3.85-5.65); White Blood Count 9.62 10^3/uL (3.29-11.43)
[2024-05-29 05:37] LABS: Alanine Aminotransferase 21 U/L (0-41); Alkaline Phosphatase 147 U/L (40-130); Anion Gap 19.9 (5-19); Aspartate Amino Transferase 20 U/L (0-40); Blood Urea Nitrogen 15 mg/dL (6-20); Calcium 7.9 mg/dL (8.5-10.5); Carbon Dioxide 17 mmol/L (22-29); Chloride 99 mmol/L (98-107); Creatinine Clr Calc Pharmacy 124.1549; Globulin 2.5 g/dL (1.3-4.6); Glomerular Filtration Rate 101.2 mL/min (90-130); Glucose 435 mg/dL (65-115); Magnesium 1.7 mg/dL (1.7-2.3); Osmolality Calculated 292 mOsm/kg (285-295); Phosphorus 3.2 mg/dL (2.5-4.5); Potassium 4.9 mmol/L (3.5-5.1); Sodium 131 mmol/L (136-145); Total Bilirubin 0.3 mg/dL (0.15-1.2); Total Protein 5.5 g/dL (6.6-8.7)
[2024-05-29] MEDS: insulin lispro 100 unit/1 mL 10 UNIT SUBCUT ×2 (06:28→18:03)
[2024-05-29] MEDS: oxyCODONE 5 mg IR Tab/Cap PO ×2 (06:30→11:52)
[2024-05-29 06:32] LABS: Glucose Point of Care 440 mg/dL (70-110)
[2024-05-29] MEDS: insulin lispro 100 unit/1 mL SUBCUT ×3 (08:13→21:23)
[2024-05-29] MEDS: vancomycin 1,250 MG/250 ML PIGGYBACK 250 MG IV ×2 (10:23→21:22)
--- NOTE | 2024-05-29 10:57 | MRR_ITS ---
PROCEDURE INFORMATION: Exam: MR Left Lower Extremity Joint Without and With Contrast, Knee Exam date and time: 05/29/2024 4:22 PM Age: 29 years old Clinical indication: Cellulitis; Patient HX: Possible abscess on left knee located on the ventral surface at the top on the patella; Additional info: Pain, swelling, cellulitis, assess for deeper infection TECHNIQUE: Imaging protocol: Magnetic resonance imaging of the left lower extremity joint without and with contrast. Exam focused on the knee. Contrast material: GADOLINIUM; Contrast volume: 13 ml; Contrast route: INTRAVENOUS (IV); COMPARISON: CR XR ankle LT min 3V* [id number] 11/04/2020 12:18 AM FINDINGS: Bones/joints: Patellofemoral and femorotibial articular surfaces are intact. No evidence of fracture or aggressive osseous lesion. Small joint effusion. No evidence of septic joint or osteomyelitis. Medial meniscus: Intact. Lateral meniscus: Intact. Anterior cruciate ligament: Intact. Posterior cruciate ligament: Intact. Medial capsule and supporting structures: Intact. Lateral capsule and supporting structures: Intact. Extensor mechanism of knee: Quadriceps and patellar tendons are intact. Retinacula are intact. Soft tissues: Prominent soft tissue edema and skin thickening, particularly of the volar soft tissues with a 1.5 cm focus of fluid suggestive of a developing abscess (image 13 of series 901). No deep compartment collection. Reactive popliteal node is noted. MR/MR knee LT wo/w con [id number] IMPRESSION: 1. Cellulitis with a developing 1.5 cm abscess in the infrapatellar subcutaneous soft tissues. No evidence of osteomyelitis or septic joint.
[2024-05-29 11:36] LABS: Glucose Point of Care 72 mg/dL (70-110)
[2024-05-29] MEDS: gadobenate dimeglumine 20 mL vial 12 ML IV (16:36)
[2024-05-29 17:38] LABS: Glucose Point of Care 495 mg/dL (70-110)
[2024-05-29] MEDS: loperamide 2 mg Capsule PO (18:02)
[2024-05-29] MEDS: insulin glargine 100 units/1 mL 30 UNIT SUBCUT (18:02)
[2024-05-29 18:55] LABS: C Reactive Protein 122.5 mg/L (0.0-4.9)
[2024-05-29] MEDS: ketorolac 30 mg/mL INJ 15 MG IVP (20:12)
[2024-05-29 20:17] LABS: Glucose Point of Care 237 mg/dL (70-110)
--- NOTE | 2024-05-29 20:40 | P.CONIM_ITS ---
Providers/Reason For Consult 2 Consulting Physician/Specialty*: Lauri Ha DO/orthopedic surgery Reason for Consult*: Left knee septic prepatellar bursitis Requesting Physician: Dr. Soriano Attending Physician: Iftikhar Soriano Primary Care Provider: Adi Castellon MD History of Present Illness History of Present Illness Jean Miller is a 29 year old male who has a significant history of type I diabetic per HPI note from internal medicine multiple episodes of diabetic ketoacidosis, hypertension, tobacco use disorder and methamphetamine abuse, presented to the emergency department on 05/28/2024 with a left knee infection initially admitted for cellulitis this was worked up and had an MRI which showed a prepatellar abscess no signs of septic joint orthopedics was consulted for evaluation and treatment recommendations. He has been on IV antibiotics. He does state he had fevers prior to his hospitalization. He has been able to ambulate but does have some pain with range of motion of the knee. States he had a pimple on his left knee which was popped and this was several days ago and this is now worsened to an infection. No other complaints at this time Review of Systems 2 General: Reports: 10 or more systems reviewed and unremarkable except in HPI and below Medications/Allergies Home Medications Medication Instructions Recorded Confirmed Last Taken Type blood-glucose meter (OneTouch #1 ea 04/02/22 05/28/24 Unknown Rx Ultra2 Meter kit) blood sugar diagnostic #300 ea 05/12/22 05/28/24 Unknown Rx insulin aspart U-100 100 unit/mL 10 unit (0.1 mL) SUBCUT TID #15 mL 02/10/24 05/28/24 05/28/24 Rx (3 mL) subcutaneous pen (Novolog FlexPen U-100 Insulin aspart) insulin detemir U-100 100 unit/mL 30 unit (0.3 mL) SUBCUT QPM #15 mL 02/10/24 05/28/24 05/27/24 Rx (3 mL) subcutaneous pen (Levemir FlexPen) Allergies Allergy/AdvReac Type Severity Reaction Status Date / Time No Known Allergies Allergy Verified 05/11/24 09:19 Current Medications Generic Name Dose Route Start Last Admin Trade Name Freq PRN Reason Stop Dose Admin Ceftriaxone Sodium 1,000 mg 05/28/24 20:00 08/15/24 20:18 Ceftriaxone 1,000 Mg Sdv IVP 1,000 mg Q24H JAMES Administration Protocol Enoxaparin Sodium 40 mg 05/28/24 20:00 05/28/24 20:16 Enoxaparin 40 Mg/0.4 Ml Syringe SUBCUT 40 mg Q24H JAMES Administration Sodium Chloride 1,000 mls @ 125 mls/hr 05/28/24 19:30 05/29/24 11:50 Sodium Chloride 0.9% IV 125 mls/hr .Q8H JAMES Administration Vancomycin/PEG/NADA/Lysine/Water 1,250 mg in 250 mls @ 250 mls/hr 05/29/24 08:00 05/29/24 11:33 Vancocin IV Infused Q12H JAMES Infusion Insulin Glargine 30 unit 05/29/24 18:00 05/29/24 18:02 Insulin Glargine 100 Units/1 Ml SUBCUT 30 unit QPM JAMES Administration Insulin Human Lispro 0 unit 05/28/24 21:00 05/29/24 18:02 Insulin Lispro 100 Unit/1 Ml SUBCUT 18 unit WM&BEDTIME JAMES Administration Protocol Insulin Human Lispro 10 unit 05/29/24 07:00 05/29/24 18:03 Insulin Lispro 100 Unit/1 Ml SUBCUT 10 unit TIDAC JAMES Administration Ketorolac Tromethamine 15 mg 05/29/24 18:30 05/29/24 20:12 Ketorolac 30 Mg/Ml Inj IVP 06/03/24 18:29 15 mg Q6H JAMES Administration Oxycodone HCl 5 mg 05/28/24 19:29 05/29/24 11:52 Oxycodone 5 Mg Ir Tab/Cap PO 5 mg Q4H PRN Administration SEVERE PAIN PFSH Acute 2 PFSH: Medical History (Updated 05/30/24 @ 07:51 by Lauri Ha DO) Metabolic acidosis Acute kidney injury DKA, type 1 Nicotine dependence, cigarettes, uncomplicated Hypokalemia Polysubstance abuse DKA (diabetic ketoacidosis) Type 1 diabetes mellitus, uncontrolled DKA (diabetic ketoacidosis) History of thyroid nodule right complex nodule, FNA showed benign 03/2022 Transaminitis Hypertension Hyperthyroidism subclinical Amphetamine abuse Long-term insulin use Diabetes type 1, uncontrolled History of DKA Surgical History History of tonsillectomy Family History Other Family history unknown Social History Smoking and tobacco/nicotine status: current every day tobacco/nicotine user cigarettes Packs smoked per day: 1 Alcohol intake: former Substance/Drug Use: current Vitals/I&O/Wt Last Vital Signs Temp 99.7 F H 05/29/24 20:00 Pulse 111 H 05/29/24 20:00 Resp 15 05/29/24 20:00 BP 120/73 05/29/24 20:00 Pulse Ox 97 05/29/24 20:00 O2 Del Method Room Air 05/29/24 20:00 05/29/24 05/29/24 05/29/24 06:59 14:59 22:59 Intake Total 2367.083 / 4967.083 1969 240 / 2210 Balance 2367.083 / 4967.083 1969 240 / 2210 Weight last 48 hrs Weight 151 lb Weight 149 lb 1 oz Weight 140 lb Physical Exam 2 Narrative: Left knee orthopedic specific examination: Patient has a punctate hole wound with eschar over top no active draining erythema localized to the prepatellar bursal region. Patient has no pain with micromotion there is no palpable joint effusion stable varus valgus. Patient does have significant tenderness to palpation and palpable fluctuance over the prepatellar bursal region with localized erythema in this area. He is able to wiggle the toes plantarflex and dorsiflex ankle left lower extremity is warm well-perfused compartments are soft compressible no aggressively proximal tracking infection. Secondary survey examinations unremarkable for any other signs of infection pain to the bilateral upper extremity joints right lower extremity joints. Data 05/30/24 07:01 05/30/24 07:01 Micro: Microbiology 05/28/24 17:10 Blood Culture - Preliminary Blood NEGATIVE TO DATE 05/28/24 17:06 Blood Culture - Preliminary Blood NEGATIVE TO DATE MRI: Radiologist's impression: Ordering Provider/Ordering MD: Iftikhar Soriano MD Date of Service: 05/29/24 Procedure(s): MR knee LT wo/w con [id number] Accession Number(s): [id number] Report Number: [id number] PROCEDURE INFORMATION: Exam: MR Left Lower Extremity Joint Without and With Contrast, Knee Exam date and time: 05/29/2024 4:22 PM Age: 29 years old Clinical indication: Cellulitis; Patient HX: Possible abscess on left knee located on the ventral surface at the top on the patella; Additional info: Pain, swelling, cellulitis, assess for deeper infection TECHNIQUE: Imaging protocol: Magnetic resonance imaging of the left lower extremity joint without and with contrast. Exam focused on the knee. Contrast material: GADOLINIUM; Contrast volume: 13 ml; Contrast route: INTRAVENOUS (IV); COMPARISON: CR XR ankle LT min 3V* [id number] 11/04/2020 12:18 AM FINDINGS: Bones/joints: Patellofemoral and femorotibial articular surfaces are intact. No evidence of fracture or aggressive osseous lesion. Small joint effusion. No evidence of septic joint or osteomyelitis. Medial meniscus: Intact. Lateral meniscus: Intact. Anterior cruciate ligament: Intact. Posterior cruciate ligament: Intact. Medial capsule and supporting structures: Intact. Lateral capsule and supporting structures: Intact. Extensor mechanism of knee: Quadriceps and patellar tendons are intact. Retinacula are intact. Soft tissues: Prominent soft tissue edema and skin thickening, particularly of the volar soft tissues with a 1.5 cm focus of fluid suggestive of a developing abscess (image 13 of series 901). No deep compartment collection. Reactive popliteal node is noted. MR/MR knee LT wo/w con [id number] IMPRESSION: 1. Cellulitis with a developing 1.5 cm abscess in the infrapatellar subcutaneous soft tissues. No evidence of osteomyelitis or septic joint. A&P Assessment and plan (1) Prepatellar abscess: (2) Knee swelling: (3) Prepatellar bursitis of left knee: (4) Lower extremity cellulitis: (5) Poorly controlled type 1 diabetes mellitus: Plan N.p.o. at midnight Pain control IV Toradol Compressive Garfield wrap/warm compresses left knee IV antibiotics per primary Internal medicine is primary MRI reviewed Labs reviewed Plan for possible I&D tomorrow if no further clinical improvement of left knee septic prepatellar bursitis Coding Level of Care Code Acute Code for [facility] Fwd Diagnoses Prepatellar abscess L02.419 Knee swelling M25.469 Prepatellar bursitis of left knee M70.42 Lower extremity cellulitis L03.119 Poorly controlled type 1 diabetes mellitus E10.65 Time Spent (min) 45
[2024-05-29 20:53] LABS: Glucose Point of Care 201 mg/dL (70-110)
[2024-05-29] MEDS: cefTRIAXone 1,000 mg SDV 1000 MG IVP (21:22)
[2024-05-29] MEDS: enoxaparin 40 mg/0.4 mL Syringe SUBCUT (21:22)
--- NOTE | 2024-05-29 22:59 | P.PN_ITS ---
Subjective 2 Subjective: Having pain over the left knee at the area of swelling and redness. Vitals/I&O/Wt Last Vital Signs Temp 99.7 F H 05/29/24 20:00 Pulse 111 H 05/29/24 20:00 Resp 15 05/29/24 20:00 BP 120/73 05/29/24 20:00 Pulse Ox 97 05/29/24 20:00 O2 Del Method Room Air 05/29/24 20:00 05/29/24 05/29/24 05/29/24 06:59 14:59 22:59 Intake Total 2367.083 / 4967.083 1969 1490 / 3460 Balance 2367.083 / 4967.083 1969 1490 / 3460 Weight last 48 hrs Weight 68.492 kg Weight 67.614 kg Weight 63.503 kg Physical Exam 2 Const: COMMON NORMALS: patient oriented x3 and alert GENERAL APPEARANCE: c ooperative ORIENTATION/CONSCIOUSNESS: Yes awake HENMT: COMMON NORMALS: oropharynx normal Neck/C-Spine: COMMON NORMALS: no JVD Resp: COMMON NORMALS: normal respiratory effort and clear to auscultation bilaterally AUSCULTATION: clear to auscultation bilaterally Cardio: COMMON NORMALS: no JVD, regular rhythm, S1 normal heart sound present, S2 normal heart sound present and No murmurs present (Cardio) RHYTHM: regular rhythm HEART SOUNDS: S1 normal heart sound present and S2 normal heart sound present GI: COMMON NORMALS: Normal to inspection, nondistended, normoactive bowel sounds present, Soft to palpation and non-tender PALPATION: Yes Soft to palpation Extremity: NARRATIVE EXTREMITY EXAM: Pain superficially over the knee with passive range of motion. Neuro: COMMON NORMALS: patient oriented x3 and moves all extremities S ENSORIUM/ORIENTATION: Yes alert Skin: NARRATIVE SKIN EXAM: Swelling, redness, warmth, tenderness over the left patella and extending around it by about an inch and a half, 2 shallow ulcerations above and below the knee without active drainage. Mild fluctuance of the area. Data 05/29/24 04:58 05/29/24 04:58 Micro: Microbiology 05/28/24 17:10 Blood Culture - Preliminary Blood NEGATIVE TO DATE 05/28/24 17:06 Blood Culture - Preliminary Blood NEGATIVE TO DATE A&P Assessment and plan (1) Lower extremity cellulitis: Reviewed vital, lactic acid, magnesium, CBC, CMP. Discussed with nursing, disease case manager rn. He is having swelling, pain, tenderness on PROM, redness and warmth over and around the left patella with an area of cellulitis, but with a good amount of swelling and some fluctuance. No active drainage. Discussed with him and requested MRI of the knee with finding of cellulitis and abscess of 1.5 cm developing in the infrapatellar subcutaneous soft tissues. Without evidence of OM or septic joint. Discussed with orthopedic surgeon on-call. Appreciate consultation. Obtain CRP, elevate extremity, added NSAID. Continue ceftriaxone, vancomycin, monitor levels with risk of kidney injury. N.p.o. after midnight. Had an episode of diarrhea today. Requested C. difficile. Cellulitis with high risk of developing sepsis in the setting of brittle type 2 diabetes mellitus with dehydration (2) Acute kidney injury: Reviewed kidney function, BUN 15, creatinine 0.9. Reassess kidney function. Continue IV fluid hydration Avoid nephrotoxins (3) Dehydration: Continue IV hydration. At risk of DKA. Patient is high risk for worsening condition with dehydration, MICHAEL, metabolic acidosis Patient is currently tachycardic Start IV hydration (4) Metabolic acidosis: At risk of DKA, anion gap 19.9, bicarb 17. Continue subcutaneous insulin, IV hydration. Reassess chemistry. No room to increase Long-acting insulin at the moment blood glucose down to 77. Repeat 201. Continue to monitor. High risk for progressing into diabetic ketoacidosis Start aggressive control of infection Optimize glycemic control Hydration Monitor electrolytes (5) Poorly controlled type 1 diabetes mellitus: Continue Lantus, sliding scale, monitor glucose. Continue consistent carbohydrate diet. Glucose down to as low as 77 today, otherwise elevated up into 400s this morning. Recheck 201. History of poorly controlled type 1 diabetes mellitus with hyperglycemia History of multiple diabetic ketoacidosis episodes Plan DVT prophylaxis: Lovenox CODE STATUS: Full code Attestations 2 Medical Necessity Statement*: Continue admission for assessment management of cellulitis and abscess of soft trace of the left knee in a gentleman with suboptimally controlled DM 1 with labile glucose and recurrent DKA. and High MDM includes amount and/or complexity of data reviewed/ordered [ resulted lab(s)/test(s), ordered lab(s)/test(s) and other healthcare professional discussion] and described risk of complication, morbidity or mortality of management as documented Diagnoses Lower extremity cellulitis L03.119 Acute kidney injury N17.9 Dehydration E86.0 Metabolic acidosis E87.20 Poorly controlled type 1 diabetes mellitus E10.65
[2024-05-29] MEDS: magnesium sulfate premix 1 GM/100 ML PIGGYBACK IV (23:51)
[2024-05-30] VITALS (21 sets, daily range): BP systolic 90–142; BP diastolic 52–93; PULSE 87–120; RESP 6–20; TEMP 36.5–37.7; O2SAT 97–100
[2024-05-30] MEDS: ketorolac 30 mg/mL INJ 15 MG IVP ×3 (01:36→20:50)
[2024-05-30 07:01] LABS: Glucose Point of Care 158 mg/dL (70-110)
[2024-05-30 07:08] LABS: Basophils % 0.8 %; Eosinophils % 0.8 %; Hematocrit 36.2 % (37-53); Lymphocytes # 1.2 10^3/uL (0.8-4.8); Lymphocytes % 22.6 %; Mean Corpuscular HGB Conc 30.7 g/dL (30-55); Mean Corpuscular Hemoglobin 27.3 pg (27-33); Mean Corpuscular Volume 89.2 fl (82-101); Mean Platelet Volume 10.6 fL (7.4-10.4); Monocytes # 0.5 10^3/uL (0.2-0.9); Monocytes % 8.6 %; Neutrophils # 3.49 10^3/uL (1.8-7.7); Neutrophils % 66.8 %; Nucleated Red Blood Cells % 0 %; Platelet Count 241 10^3/cmm (157-399); Red Blood Count 4.06 10^6/uL (3.85-5.65); Red Cell Distribution Width 14.2 % (12.1-15.1); White Blood Count 5.22 10^3/uL (3.29-11.43)
[2024-05-30 07:29] LABS: C Reactive Protein 91.2 mg/L (0.0-4.9); Vancomycin Trough 9.8 ug/mL (10-15)
[2024-05-30 07:30] LABS: Alanine Aminotransferase 16 U/L (0-41); Albumin Level 2.9 g/dL (3.5-5.2); Alkaline Phosphatase 140 U/L (40-130); Anion Gap 16.1 (5-19); Aspartate Amino Transferase 14 U/L (0-40); Blood Urea Nitrogen 11 mg/dL (6-20); Calcium 7.8 mg/dL (8.5-10.5); Carbon Dioxide 21 mmol/L (22-29); Chloride 106 mmol/L (98-107); Creatinine Clr Calc Pharmacy 123.3249; Globulin 2.3 g/dL (1.3-4.6); Glomerular Filtration Rate 101.2 mL/min (90-130); Glucose 193 mg/dL (65-115); Osmolality Calculated 293 mOsm/kg (285-295); Potassium 4.1 mmol/L (3.5-5.1); Sodium 139 mmol/L (136-145); Total Bilirubin 0.2 mg/dL (0.15-1.2); Total Protein 5.2 g/dL (6.6-8.7)
[2024-05-30] MEDS: acetaminophen 1,000 MG/100 ML PIGGYBACK 400 MG IV (07:31)
[2024-05-30] MEDS: scopolamine 1.5 Patch 1 PATCH TRANSDERMA (07:31)
[2024-05-30] MEDS: ketorolac 30 mg/mL INJ IVP (07:31)
--- NOTE | 2024-05-30 07:44 | PC.NURSE ---
0715- Pt left unit via bed to go to OR for surgery with Dr. Ha.
--- NOTE | 2024-05-30 07:47 | P.PN_ITS ---
Subjective 2 Subjective: Patient seen and examined this morning. Clinically patient has not had any improvement and he still has a focalized erythema over the prepatellar bursitis region with tenderness to palpation. He has been on IV antibiotics. This appears to have consolidated to this isolated abscess in the prepatellar bursal region. Has been n.p.o. since midnight we talked about his treatment options in detail and through shared decision make elects proceed with surgery today. Vitals/I&O/Wt Last Vital Signs Temp 98.6 F 05/30/24 07:16 Pulse 95 05/30/24 07:16 Resp 18 05/30/24 07:16 BP 133/89 05/30/24 07:16 Pulse Ox 100 05/30/24 07:16 O2 Del Method Room Air 05/30/24 07:16 05/29/24 05/30/24 05/30/24 22:59 06:59 14:59 Intake Total 1490 / 3460 860 / 4320 Output Total 2 / 2 Balance 1490 / 3460 858 / 4318 Weight last 48 hrs Weight 148 lb 6 oz Weight 148 lb 6 oz Weight 151 lb Weight 149 lb 1 oz Weight 140 lb Physical Exam 2 Narrative: Left knee examination: Examination of the left knee demonstrates patient has a small punctate scab over the prepatellar bursal region with erythema localized around the prepatellar bursa there is no palpable joint effusion he has no pain with micromotion but he does have significant tenderness palpation over prepatellar bursa with palpable fluctuance as well as thickened cellulitic skin. Data 05/30/24 07:01 05/30/24 07:01 Micro: Microbiology 05/28/24 17:10 Blood Culture - Preliminary Blood NEGATIVE TO DATE 05/28/24 17:06 Blood Culture - Preliminary Blood NEGATIVE TO DATE A&P Assessment and plan (1) Prepatellar abscess: (2) Prepatellar bursitis of left knee: (3) Lower extremity cellulitis: Plan N.p.o. since midnight On IV antibiotics Medical management and internal medicine is primary IV Toradol Pain control Weight-bear as tolerate Warm compresses Labs reviewed Plan to proceed to the OR today for left knee prepatellar bursal abscess irrigation and debridement. We talked about his treatment options in detail as far as continued nonoperative versus operative intervention. Given his abscess is localized clinically appears to have stabilized but does not appear to be improving since overnights evaluation recommendation this point time would be to perform I&D and decompression of this abscess. Talked about ins and outs procedure risk benefits complication alternatives surgery. Risk of surge include not limited to make a better make it worse injury to nerves vessels or tendons, wound issues, persistent infection further washouts. Understanding risk of surgery elects proceed with surgical intervention all questions answered at this time. Will proceed to the OR today. Attestations 2 Medical Necessity Statement*: Left knee septic prepatellar bursitis Coding Level of Care Code Acute Code for [facility] Fwd Diagnoses Prepatellar abscess L02.419 Prepatellar bursitis of left knee M70.42 Lower extremity cellulitis L03.119 Time Spent (min) 15
--- NOTE | 2024-05-30 07:47 | W.PM.OPSUD ---
Surgery/Procedure H&P Update DATE OF PROCEDURE: May 30, 2024 DATE H&P PERFORMED: 05/29/24 H&P UPDATE INFORMATION: I have reviewed H&P completed within last 30 days, I have examined patient prior to procedure and No changes to prior documentation PREOP DIAGNOSIS: Left Knee septic prepatellar bursitis with abscess PRIMARY INDICATION FOR PROCEDURE: Left knee septic prepatellar bursitis with abscess and cellulitis PLANNED PROCEDURE: Operation Date: 05/30/24 08:10 Proposed Procedures p Abcess Left Knee Prepatellar Abcess Irrigation and Debridement(Left) - Lauri Ha DO
--- NOTE | 2024-05-30 07:54 | ANES.PREANE2 ---
Pre-Anesthetic Assessment Height/Weight: Height 1.78 m Weight 67.302 kg Temp Pulse Resp BP Pulse Ox O2 Del Method 98.6 F 95 18 133/89 100 Room Air 05/30/24 07:16 05/30/24 07:16 05/30/24 07:16 05/30/24 07:16 05/30/24 07:16 05/30/24 07:16 Preop Diagnosis: Left Knee septic prepatellar bursitis with abscess Operation Date: 05/30/24 08:10 Proposed Procedures p Abcess Left Knee Prepatellar Abcess Irrigation and Debridement(Left) - Lauri Ha, DO Was Beta Skip taken within 24 hours: N/A Last intake: Intake Last Liquid Date 05/29/24 Last Liquid Time 23:59 Last Solid Date 05/29/24 Last Solid Time 23:50 Social Tobacco Exam alert, oriented x 3, clear to auscultation bilaterally and regular rate & rhythm Airway Submandibular: within normal limits Cervical ROM: within normal limits Mallampati: Class II Pulmonary None reported CV/HEM None reported history of acute on chronic kidney problems Metabolic Diabetes Mellitus (DM I) Anesthetic Plan ASA status: 3E Anesthesia: General Medications/Allergies Home Medications Medication Instructions Recorded Confirmed Last Taken Type blood-glucose meter (OneTouch #1 ea 04/02/22 05/28/24 Unknown Rx Ultra2 Meter kit) blood sugar diagnostic #300 ea 05/12/22 05/28/24 Unknown Rx insulin aspart U-100 100 unit/mL 10 unit (0.1 mL) SUBCUT TID #15 mL 02/10/24 05/28/24 05/28/24 Rx (3 mL) subcutaneous pen (Novolog FlexPen U-100 Insulin aspart) insulin detemir U-100 100 unit/mL 30 unit (0.3 mL) SUBCUT QPM #15 mL 02/10/24 05/28/24 05/27/24 Rx (3 mL) subcutaneous pen (Levemir FlexPen) Allergies Allergy/AdvReac Type Severity Reaction Status Date / Time No Known Allergies Allergy Verified 05/11/24 09:19 Current Medications Generic Name Dose Route Start Last Admin Trade Name Freq PRN Reason Stop Dose Admin Ceftriaxone Sodium 1,000 mg 05/28/24 20:00 05/29/24 21:22 Ceftriaxone 1,000 Mg Sdv IVP 1,000 mg Q24H JAMES Administration Protocol Enoxaparin Sodium 40 mg 05/28/24 20:00 05/29/24 21:22 Enoxaparin 40 Mg/0.4 Ml Syringe SUBCUT 40 mg Q24H JAMES Administration Sodium Chloride 1,000 mls @ 125 mls/hr 05/28/24 19:30 05/30/24 05:53 Sodium Chloride 0.9% IV 125 mls/hr .Q8H JAMES Infusion Vancomycin HCl 1,250 mg in 250 mls @ 250 mls/hr 05/29/24 08:00 05/29/24 22:41 Vancocin IV Infused Q12H JAMES Infusion Insulin Glargine 30 unit 05/29/24 18:00 05/29/24 18:02 Insulin Glargine 100 Units/1 Ml SUBCUT 30 unit QPM JAMES Administration Insulin Human Lispro 0 unit 05/28/24 21:00 05/29/24 21:23 Insulin Lispro 100 Unit/1 Ml SUBCUT 4 unit WM&BEDTIME JAMES Administration Protocol Insulin Human Lispro 10 unit 05/29/24 07:00 05/29/24 18:03 Insulin Lispro 100 Unit/1 Ml SUBCUT 10 unit TIDAC JAMES Administration Ketorolac Tromethamine 15 mg 05/29/24 18:30 05/30/24 01:36 Ketorolac 30 Mg/Ml Inj IVP 06/03/24 18:29 15 mg Q6H JAMES Administration Oxycodone HCl 5 mg 05/28/24 19:29 05/29/24 11:52 Oxycodone 5 Mg Ir Tab/Cap PO 5 mg Q4H PRN Administration SEVERE PAIN PFSH Anesthesia Medical History (Updated 05/30/24 @ 07:51 by Lauri Ha DO) Metabolic acidosis Acute kidney injury DKA, type 1 Nicotine dependence, cigarettes, uncomplicated Hypokalemia Polysubstance abuse DKA (diabetic ketoacidosis) Type 1 diabetes mellitus, uncontrolled DKA (diabetic ketoacidosis) History of thyroid nodule right complex nodule, FNA showed benign 03/2022 Transaminitis Hypertension Hyperthyroidism subclinical Amphetamine abuse Long-term insulin use Diabetes type 1, uncontrolled History of DKA Surgical History History of tonsillectomy Family History Other Family history unknown Social History Smoking and tobacco/nicotine status: current every day tobacco/nicotine user cigarettes Packs smoked per day: 1 Alcohol intake: former Substance/Drug Use: current Data Anesthesia 05/30/24 07:01 05/30/24 07:01 Short CBC 05/28/24 05/29/24 05/30/24 Range/Units 17:06 04:58 07:01 WBC 9.77 9.62 5.22 (3.29-11.43) 10^3/uL Hgb 12.30 11.30 11.10 L (11.27-16.99) g/dL Hct 38.7 36.3 L 36.2 L (37-53) % MCV 87.4 88.1 89.2 (82-101) fl Plt Count 266 218 241 (157-399) 10^3/cmm Neut % (Auto) 81.0 78.0 66.8 % Neut # (Auto) 7.92 H 7.50 3.49 (1.8-7.7) 10^3/uL BMP 05/28/24 05/29/24 05/30/24 17:06 04:58 07:01 Sodium 132 L 131 L 139 Potassium 3.6 4.9 4.1 Chloride 94 L 99 106 Carbon Dioxide 22 17 L 21 L BUN 18 15 11 Creatinine 1.3 H 0.9 0.9 Glucose 360 H 435 H 193 H Calcium 8.5 7.9 L 7.8 L Liver Function 05/28/24 05/29/24 05/30/24 Range/Units 17:06 04:58 07:01 Total Bilirubin 0.2 0.3 0.2 (0.15-1.2) mg/dL AST 27 20 14 (0-40) U/L ALT 27 21 16 (0-41) U/L Alkaline Phosphatase 154 H 147 H 140 H (40-130) U/L Albumin 3.6 3.0 L 2.9 L (3.5-5.2) g/dL Coags 05/28/24 05/29/24 05/30/24 17:06 04:58 07:01 ESR 21 H C-Reactive Protein 52.7 H 122.5 H 91.2 H Microbiology 05/28/24 17:10 Blood Culture - Preliminary Blood NEGATIVE TO DATE 05/28/24 17:06 Blood Culture - Preliminary Blood NEGATIVE TO DATE Cardiac Studies: Echocardiogram 01/13/24 Sestamibi Stress Test (Cardiology) 01/13/24
[2024-05-30] MEDS: ceFAZolin 2,000 mg SDV 2000 MG IVP (08:00)
--- NOTE | 2024-05-30 08:44 | P.BOP_ITS ---
Date of Procedure: [05/30/2024] Surgeon: Lauri Ha DO [employer] Specialist(s): Lyndon Ha PA-C Procedure(s) performed: Left knee prepatellar abscess irrigation and debridement with bursectomy (5 cm x 4 cm x 0.5 cm) Findings of the procedure(s): Left knee prepatellar abscess was noted there was no deep communication into the joint. This was decompressed and irrigated underwent cultures sent for microbiology. Patient Toller procedure without issues or complications taken back to PACU in stable condition will return To the floor. Continue IV antibiotics. Estimated blood loss: 5 mL Specimen(s) removed: Aerobic and anaerobic cultures taken of prepatellar abscess of left knee Post-operative diagnosis: Left knee septic prepatellar bursitis with abscess and cellulitis
--- NOTE | 2024-05-30 08:55 | P.OP_ITS ---
Operative Report Date of procedure: May 30, 2024 Pre-op diagnosis: Left knee septic prepatellar bursitis and abscess with cellulitis Post-op diagnosis: Same Procedure done: Left knee prepatellar abscess irrigation and debridement with bursectomy (5 cm x 4 cm x 0.5 cm) Specimens removed/disposition: Aerobic and anaerobic cultures taken of the left knee prepatellar abscess Surgeon: Lauri Ha DO Community Health Promoter: Lyndon Ha PA-C: GALEN was necessary for assistance in this case with leg positioning retraction and irrigation and debridement and wound closure and dressing application. Anesthesia: General Estimated blood loss: 5 mL 14 minutes at 250 mmHg IV fluids: 600 mL Complications: None Findings: See operative report narrative Condition: stable Disposition: floor Brief History: Patient is a 29-year-old male with a left knee septic prepatellar bursitis with abscess and cellulitis. He was admitted by the hospitalist underwent IV antibiotics and this is consolidated and MRI showed a consolidated abscess in the prepatellar bursal region consistent with left knee septic prepatellar bursitis with abscess. There is no deep communication of the joint at this point in time clinically he has plateaued and stayed the same and we talked about treatment options in detail. Given abscess as well as clinically no further significant improvement would recommend left knee irrigation and debridement we talked about this in detail and through shared decision making patient elects proceed with surgical intervention all questions answered at this time. Procedure: Patient was seen evaluated in the preoperative holding area. Consent was reviewed and signed with patient correct extremity was then subsequently marked. All questions answered. Patient was seen evaluated anesthesia was cleared for surgery was taken back to the operative suite patient was then transported onto the OR table in supine position all bony prominences well-padded patient was appropriate secured to the bed. Patient then underwent anesthesia per the anesthesia part was properly anesthetized a nonsterile tourniquet was applied to the left lower extremity. Final timeout performed. Patient received appropriate preoperative antibiotics. Esmarch tourniquet was used exsanguinate the left lower extremity tourniquet was insufflated 250 mmHg. Patient had a small punctate eschar scab of the prepatellar bursal region likely source of contamination. I made a longitudinal incision ellipsing out the sinus tract. Immediately in the subcutaneous tissue encountered abscess and purulent fluid. This point time I subsequently took cultures aerobic and anaerobic cultures of the prepatellar bursal abscess of the left knee and was sent for microbiology. At this point time I then extended the incision both proximally and distally and ellipsed out the sinus tract and came directly down to the subcutaneous tissue directly down to the peritenon. There was no deep extension into the left knee joint. I utilized a hemostat to decompress the abscess circumferentially the entirety of the wound bed was 5 cm x 4 cm x 0.5 cm. This point in time I used a curette rongeur and sharp scalpel excision to debride all nonviable tissue of skin, subcutaneous fat and tissue, and fascia. Once this was debrided of all nonviable tissue and to stable healthy tissue I then irrigated the wound bed with diluted Betadine solution this was then allowed to soak and then subsequently thoroughly irrigated this out with Pulsavac normal saline irrigation of 3 L. At this point time the wound bed was healthy and no further extent of abscess or deep communication. I then subsequently deflated the tourniquet hemostasis was satisfactory close this with interrupted deep subcutaneous tissue of 2-0 PDS to close the deep tissue and then interrupted horizontal mattress stitches with 3-0 nylon. Dressing was then applied a Xeroform 4 x 4's ABDs Curlex and Garfield wrap. Patient was then awakened from anesthesia and taken PACU in stable condition Disposition: Patient taken PACU in stable condition recovering well. Will return to floor postoperatively. Continue IV antibiotics. Orthopedics will continue to follow on the floor. Monitor cultures. Pain control.
--- NOTE | 2024-05-30 09:16 | PM.PACU ---
PACU note Narrative: Patient is a 29-year-old male that just underwent a left knee I&D. Pt transferred to PACU in stable condition. Dressing is dry. pt is awake and alert. pt can wiggle toes and plantarflex and dorsiflex foot. pt able to perform straight leg raise, Femoral nerve intact. Distal pulses are palpable toes are warm and well-perfused. Cap refill is normal and under 2 seconds. Sensation to foot is intact. Pain is controlled. Exam: awake Disposition: back to floor
[2024-05-30 10:53] LABS: Glucose Point of Care 130 mg/dL (70-110)
[2024-05-30] MEDS: vancomycin 1,000 MG in sodium chloride 0.9% 250 ML 250 MG IV ×2 (10:53→17:31)
[2024-05-30] MEDS: sodium chloride 0.9% 1,000 ML 125 ML IV ×2 (10:56→20:51)
--- NOTE | 2024-05-30 10:57 | ANE.PACU2 ---
Inpatient post-anesthesia follow up: Airway intact: Yes Vital signs: Temperature 98.2 F Pulse Rate 96 Respiratory Rate 17 Blood Pressure 119/78 Pulse Oximetry 98 Oxygen Delivery Me thod Room Air Oxygen Flow Rate Fraction of Inspir ed Oxygen Hydration adequate: Yes Nausea and vomiting: No Pain level: 3 Mental status: Baseline
--- NOTE | 2024-05-30 12:29 | PC.OT ---
OT orders received to evaluate and tx. Pt. to be evaluated on Saturday secondary to weekend protocol and surgery being on 05/30.
[2024-05-30] MEDS: oxyCODONE 5 mg IR Tab/Cap PO ×2 (12:48→17:32)
[2024-05-30 14:05] LABS: C.Diff PCR (Lab) NEGATIVE (Negative)
[2024-05-30 17:13] LABS: Glucose Point of Care 192 mg/dL (70-110)
[2024-05-30] MEDS: insulin lispro 100 unit/1 mL SUBCUT (17:31)
[2024-05-30] MEDS: insulin lispro 100 unit/1 mL 10 UNIT SUBCUT (17:31)
[2024-05-30] MEDS: insulin glargine 100 units/1 mL 30 UNIT SUBCUT (17:32)
[2024-05-30] MEDS: loperamide 2 mg Capsule PO (18:24)
--- NOTE | 2024-05-30 20:18 | P.PN_ITS ---
Subjective 2 Subjective: Left knee is sore. No other new symptoms. Denies craving for nicotine. Declines nicotine patch lozenges or gum. Asks when he can go home. Discussed with him risk of progression of infection, need for IV antibiotics given proximity to the knee joint, poorly controlled diabetes, risk of local spread, distant metastatic infection and other potentially serious or life-threatening complication. He indicates understanding. Vitals/I&O/Wt Last Vital Signs Temp 99.9 F H 05/30/24 19:42 Pulse 117 H 05/30/24 19:42 Resp 20 H 05/30/24 19:42 BP 128/77 05/30/24 19:42 Pulse Ox 97 05/30/24 19:42 O2 Del Method Room Air 05/30/24 19:42 05/30/24 05/30/24 05/30/24 06:59 14:59 22:59 Intake Total 860 / 4320 1310 / 1310 / 1989 Output Total 2 / 2 5 / Balance 858 / 4318 1305 / 1305 680 / 1984 Weight last 48 hrs Weight 67.302 kg Weight 67.302 kg Weight 68.492 kg Weight 67.614 kg Physical Exam 2 Const: COMMON NORMALS: patient oriented x3 and alert GENERAL APPEARANCE: c ooperative ORIENTATION/CONSCIOUSNESS: Yes awake HENMT: COMMON NORMALS: oropharynx normal Neck/C-Spine: COMMON NORMALS: no JVD Resp: COMMON NORMALS: normal respiratory effort and clear to auscultation bilaterally AUSCULTATION: clear to auscultation bilaterally Cardio: COMMON NORMALS: no JVD, regular rhythm, S1 normal heart sound present, S2 normal heart sound present and No murmurs present (Cardio) RHYTHM: regular rhythm HEART SOUNDS: S1 normal heart sound present and S2 normal heart sound present GI: COMMON NORMALS: Normal to inspection, nondistended, normoactive bowel sounds present, Soft to palpation and non-tender PALPATION: Yes Soft to palpation Extremity: NARRATIVE EXTREMITY EXAM: Left lower extremity wrapped in postoperative dressing. No erythema or swelling extending proximally. Neuro: COMMON NORMALS: patient oriented x3 and moves all extremities S ENSORIUM/ORIENTATION: Yes alert Data 05/30/24 07:01 05/30/24 07:01 Micro: Microbiology 05/30/24 08:34 Gram Stain - Final Knee - #1 05/28/24 17:10 Blood Culture - Preliminary Blood NEGATIVE TO DATE 05/28/24 17:06 Blood Culture - Preliminary Blood NEGATIVE TO DATE A&P Assessment and plan (1) Lower extremity cellulitis: Cellulitis and abscess of left lower extremity. Underwent ID today. Reviewed orthopedic note. Reviewed vitals, CBC, CMP, Vanco trough,CRP, blood culture, wound culture, continue to follow. Gram stain wound culture with few PMN, no organisms. Obtain MRSA PCR. Monitor event levels, renal function with risk of kidney injury, ototoxicity with IV vancomycin. Elevate extremity, added NSAID. Continue ceftriaxone, vancomycin Had an episode of diarrhea today. Reviewed C. difficile. Negative for C. difficile. Additional diarrhea today. Requested loperamide. 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 Reassess kidney function. Continue IV fluid hydration Avoid nephrotoxins (3) Dehydration: Continue IV hydration. At risk of DKA. Bicarb drip, anion gap improved. Reassess. Monitor glucose. Patient is high risk for worsening condition with dehydration, MICHAEL, metabolic acidosis Patient is currently tachycardic IV hydration (4) Metabolic acidosis: At risk of DKA, anion gap 19.9, bicarb 17. Continue subcutaneous insulin, IV hydration. Reassess chemistry. No room to increase Long-acting insulin High risk for progressing into diabetic ketoacidosis Start aggressive control of infection Optimize glycemic control Hydration Monitor electrolytes (5) Poorly controlled type 1 diabetes mellitus: Continue Lantus, sliding scale, monitor glucose. Continue consistent carbohydrate diet. History of poorly controlled type 1 diabetes mellitus with hyperglycemia History of multiple diabetic ketoacidosis episodes Plan DVT prophylaxis: Lovenox CODE STATUS: Full code Attestations 2 Medical Necessity Statement*: Continue admission for assessment management of cellulitis and abscess of soft trace of the left knee in a gentleman with suboptimally controlled DM 1 with labile glucose and recurrent DKA. and High MDM includes described risk of complication, morbidity or mortality of management as documented Diagnoses Lower extremity cellulitis L03.119 Acute kidney injury N17.9 Dehydration E86.0 Metabolic acidosis E87.20 Poorly controlled type 1 diabetes mellitus E10.65
[2024-05-30 20:44] LABS: Glucose Point of Care 162 mg/dL (70-110)
[2024-05-30] MEDS: cefTRIAXone 1,000 mg SDV 1000 MG IVP (20:50)
[2024-05-30] MEDS: enoxaparin 40 mg/0.4 mL Syringe SUBCUT (20:50)
[2024-05-31] VITALS (10 sets, daily range): BP systolic 129–146; BP diastolic 82–100; PULSE 87–118; RESP 16–18; TEMP 36.8–37.1; O2SAT 94–100
[2024-05-31] MEDS: ketorolac 30 mg/mL INJ 15 MG IVP ×4 (02:10→21:03)
[2024-05-31] MEDS: vancomycin 1,000 MG in sodium chloride 0.9% 250 ML 250 MG IV ×2 (02:10→09:28)
[2024-05-31 04:05] LABS: Basophils % 0.6 %; Eosinophils # 0.1 10^3/uL (0.0-0.8); Eosinophils % 1.1 %; Hematocrit 33.3 % (37-53); Lymphocytes # 1.4 10^3/uL (0.8-4.8); Lymphocytes % 26.6 %; Mean Corpuscular HGB Conc 30.9 g/dL (30-55); Mean Corpuscular Hemoglobin 27.8 pg (27-33); Mean Platelet Volume 10.9 fL (7.4-10.4); Monocytes # 0.5 10^3/uL (0.2-0.9); Monocytes % 8.6 %; Neutrophils # 3.35 10^3/uL (1.8-7.7); Neutrophils % 62.9 %; Nucleated Red Blood Cells % 0 %; Platelet Count 223 10^3/cmm (157-399); Red Cell Distribution Width 14.2 % (12.1-15.1); White Blood Count 5.33 10^3/uL (3.29-11.43)
[2024-05-31 04:25] LABS: Alanine Aminotransferase 18 U/L (0-41); Albumin Level 2.9 g/dL (3.5-5.2); Alkaline Phosphatase 136 U/L (40-130); Anion Gap 13.2 (5-19); Aspartate Amino Transferase 29 U/L (0-40); Blood Urea Nitrogen 8 mg/dL (6-20); C Reactive Protein 53.3 mg/L (0.0-4.9); Calcium 7.8 mg/dL (8.5-10.5); Carbon Dioxide 23 mmol/L (22-29); Chloride 102 mmol/L (98-107); Creatinine Clr Calc Pharmacy 158.5605; Globulin 2.2 g/dL (1.3-4.6); Glomerular Filtration Rate 135.3 mL/min (90-130); Glucose 251 mg/dL (65-115); Magnesium 1.6 mg/dL (1.7-2.3); Osmolality Calculated 285 mOsm/kg (285-295); Potassium 4.2 mmol/L (3.5-5.1); Sodium 134 mmol/L (136-145); Total Bilirubin 0.2 mg/dL (0.15-1.2); Total Protein 5.1 g/dL (6.6-8.7)
[2024-05-31] MEDS: sodium chloride 0.9% 1,000 ML 125 ML IV ×2 (04:52→14:03)
[2024-05-31] MEDS: amlodipine 5 mg Tablet PO (05:36)
[2024-05-31] MEDS: loperamide 2 mg Capsule PO ×2 (05:40→17:15)
[2024-05-31] MEDS: insulin lispro 100 unit/1 mL 10 UNIT SUBCUT ×2 (06:35→16:24)
[2024-05-31 06:52] LABS: Glucose Point of Care 237 mg/dL (70-110)
[2024-05-31] MEDS: oxyCODONE 5 mg IR Tab/Cap PO ×3 (09:22→21:02)
[2024-05-31] MEDS: insulin lispro 100 unit/1 mL SUBCUT ×2 (09:25→17:10)
[2024-05-31 11:01] LABS: Glucose Point of Care 116 mg/dL (70-110)
[2024-05-31] MEDS: magnesium sulfate premix 2 GM/50 ML PIGGYBACK IV (11:06)
[2024-05-31] MEDS: acetaminophen 325 mg Tablet 650 MG PO ×2 (12:21→18:23)
--- NOTE | 2024-05-31 13:01 | P.PN_ITS ---
Subjective 2 Subjective: Left knee is less sore today. Declines nicotine replacement. States, I am I just go outside and smoke . Discussed with him it is unsafe nor legal to smoke on or near the premises. Vitals/I&O/Wt Last Vital Signs Temp 98.7 F 05/31/24 07:59 Pulse 102 H 05/31/24 07:59 Resp 16 05/31/24 09:22 BP 136/97 05/31/24 07:59 Pulse Ox 99 05/31/24 07:59 O2 Del Method Room Air 05/31/24 07:59 05/30/24 05/31/24 05/31/24 22:59 06:59 14:59 Intake Total 1930 / 3240 1250 / 4490 660 / 660 Balance 1930 / 3235 1250 / 4485 660 / 660 Weight last 48 hrs Weight 74.616 kg Weight 67.302 kg Weight 67.302 kg Physical Exam 2 Const: COMMON NORMALS: patient oriented x3 and alert GENERAL APPEARANCE: c ooperative ORIENTATION/CONSCIOUSNESS: Yes awake HENMT: COMMON NORMALS: oropharynx normal Neck/C-Spine: COMMON NORMALS: no JVD Resp: COMMON NORMALS: normal respiratory effort and clear to auscultation bilaterally AUSCULTATION: clear to auscultation bilaterally Cardio: COMMON NORMALS: no JVD, regular rhythm, S1 normal heart sound present, S2 normal heart sound present and No murmurs present (Cardio) RHYTHM: regular rhythm HEART SOUNDS: S1 normal heart sound present and S2 normal heart sound present GI: COMMON NORMALS: Normal to inspection, nondistended, normoactive bowel sounds present, Soft to palpation and non-tender PALPATION: Yes Soft to palpation Extremity: NARRATIVE EXTREMITY EXAM: Left lower extremity wrapped in postoperative dressing. No erythema or swelling extending proximally. Neuro: COMMON NORMALS: patient oriented x3 and moves all extremities S ENSORIUM/ORIENTATION: Yes alert Data 05/31/24 03:34 05/31/24 03:34 Micro: Microbiology 05/30/24 08:34 Anaerobic Culture - Preliminary Knee - #2 05/30/24 08:34 Gram Stain - Final Knee - #1 Abscess Culture - Preliminary Coag positive Staphylococcus A&P Assessment and plan (1) Lower extremity cellulitis: Symptomatically doing slightly better. Tachycardic today 102. Afebrile. Reviewed CBC, CMP, magnesium, Vanco trough, blood culture, wound culture. No leukocytosis. Nothing this morning but on repeat review of the wound culture noted coag positive staph. Suspect Staph aureus. Follow-up sensitivities. MRSA PCR pending. Discussed with pharmacist, dosing to cover suspected MRSA. Monitor Vanco levels, renal function with IV high dose vancomycin, monitor for risk of renal toxicity. Cellulitis and abscess of left lower extremity. Underwent ID today. Elevate extremity, added NSAID. Continue ceftriaxone, vancomycin Had an episode of diarrhea today. Reviewed C. difficile. Negative for C. difficile. Additional diarrhea today. Requested loperamide. 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 Reassess kidney function. Continue IV fluid hydration Avoid nephrotoxins (3) Dehydration: Continue IV hydration. At risk of DKA. Bicarb drip, anion gap improved. Reassess. Monitor glucose. Patient is high risk for worsening condition with dehydration, MICHAEL, metabolic acidosis Patient is currently tachycardic IV hydration (4) Metabolic acidosis: At risk of DKA, anion gap 19.9, bicarb 17. Continue subcutaneous insulin, IV hydration. Reassess chemistry. No room to increase Long-acting insulin High risk for progressing into diabetic ketoacidosis Start aggressive control of infection Optimize glycemic control Hydration Monitor electrolytes (5) Poorly controlled type 1 diabetes mellitus: Continue Lantus, sliding scale, monitor glucose. Continue consistent carbohydrate diet. History of poorly controlled type 1 diabetes mellitus with hyperglycemia History of multiple diabetic ketoacidosis episodes Plan Hypomagnesemia: Requested replacement. Recheck magnesium. DVT prophylaxis: Lovenox CODE STATUS: Full code Attestations 2 Medical Necessity Statement*: Continue admission for assessment management of cellulitis and abscess of soft trace of the left knee in a gentleman with suboptimally controlled DM 1 with labile glucose and recurrent DKA. and High MDM includes amount and/or complexity of data reviewed/ordered [ resulted lab(s)/test(s), ordered lab(s)/test(s) and other healthcare professional discussion] and described risk of complication, morbidity or mortality of management as documented Diagnoses Lower extremity cellulitis L03.119 Acute kidney injury N17.9 Dehydration E86.0 Metabolic acidosis E87.20 Poorly controlled type 1 diabetes mellitus E10.65
[2024-05-31] MEDS: vancomycin 1,500 MG/300 ML PIGGYBACK 200 MG IV (17:05)
[2024-05-31 17:08] LABS: Glucose Point of Care 211 mg/dL (70-110)
[2024-05-31] MEDS: insulin glargine 100 units/1 mL 30 UNIT SUBCUT (17:09)
--- NOTE | 2024-05-31 18:12 | PC.NURSE ---
1809 Dr Ha in pt room, gave verbal order to increase oxycodone dose to 5mg/1tab for moderate pain, 10mg/2tabs for severe. Order updated in
--- NOTE | 2024-05-31 18:53 | PC.NURSE ---
1850 Pt requesting to leave [facility] mueller if needed. Has court at 0900 in the morning for multiple traffic violations; is requesting the ability to leave with prescriptions/refills called in/sent along.
--- NOTE | 2024-05-31 19:10 | P.PN_ITS ---
Subjective 2 Subjective: Patient seen evaluated this afternoon/evening he is recovering well he is ambulating better removing his knee around better in the room. His labs are continuing to trend and improved. Cultures are still pending but currently growing gram-positive cocci. Vitals/I&O/Wt Last Vital Signs Temp 98.3 F 05/31/24 16:00 Pulse 87 05/31/24 16:00 Resp 16 05/31/24 16:15 BP 129/86 05/31/24 16:00 Pulse Ox 98 05/31/24 16:00 O2 Del Method Room Air 05/31/24 16:00 05/31/24 05/31/24 05/31/24 06:59 14:59 22:59 Intake Total 1250 / 4490 1660 / 1660 1047.5 / 2707.5 Balance 1250 / 4485 1660 / 1660 1047.5 / 2707.5 Weight last 48 hrs Weight 164 lb 8 oz Weight 148 lb 6 oz Weight 148 lb 6 oz Physical Exam 2 Narrative: Left knee examination demonstrates that dressing is on and in place clean dry and intact his left lower extremity is warm well-perfused brisk capillary refill less than 2 seconds distal pulses are palpable. Left lower extremity is warm well-perfused compartments are soft compressible. Dressing is not taken down today. Calves are soft and nontender. Patient can wiggle the toes plantarflex and dorsiflex ankle. Sensation is intact light touch distally. Data 05/31/24 03:34 05/31/24 03:34 Micro: Microbiology 05/30/24 08:34 Anaerobic Culture - Preliminary Knee - #2 05/30/24 08:34 Gram Stain - Final Knee - #1 Abscess Culture - Preliminary Coag positive Staphylococcus A&P Assessment and plan (1) Prepatellar abscess: (2) Prepatellar bursitis of left knee: (3) Lower extremity cellulitis: Plan Regular diet On IV antibiotics Medical management and internal medicine is primary IV Toradol Pain control-adjust pain medication 1 tab for moderate pain 2 tabs for severe of Oxy IR Weight-bear as tolerate Leave dressing on in place will change dressing tomorrow Labs reviewed Intraoperative cultures pending current coagulase positive Staphylococcus Postoperative day 1 from left knee prepatellar abscess irrigation debridement clinically is having improvement as well as improvement with his labs. Will recheck patient and change dressing tomorrow. Attestations 2 Medical Necessity Statement*: Ongoing care left knee septic prepatellar bursitis with abscess requiring I&D Coding Level of Care Code Acute Code for Chg Fwd Diagnoses Prepatellar abscess L02.419 Prepatellar bursitis of left knee M70.42 Lower extremity cellulitis L03.119 Time Spent (min) 15
[2024-05-31 20:40] LABS: Glucose Point of Care 133 mg/dL (70-110)
[2024-05-31] MEDS: cefTRIAXone 1,000 mg SDV 1000 MG IVP (21:03)
[2024-05-31] MEDS: enoxaparin 40 mg/0.4 mL Syringe SUBCUT (21:04)
--- NOTE | 2024-05-31 22:26 | PC.NURSE ---
Patient requesting to leave AMA due to having court in the morning. Dr Ha and Dr. Valera notified. Physicians cleared patient to leave. Patient explained the risks and consequences of leaving against medical advice. AMA form signed by patient and this nurse. Patient left the floor at 2225.
--- NOTE | 2024-06-01 07:30 | PC.OT ---
OT ORDERS RECEIVED; PATIENT D/C BEFORE EVALUATION COULD BE ATTEMPTED.
[2024-06-02 12:18] LABS: Methicillin-Resist S.aureu PCR NOT DETECTED (NOT DETECTED)
== END 2024-05-31 22:25 | disposition left against medical advice (07) | DRG 603 ==
LOC: ER 19:14 → MEDSURG 19:57
PROVIDERS: Emergency Medicine; Student in an Organized Health Care Education/Training Program; Admitting Provider Internal Medicine; Emergency Provider Emergency Medicine; PCP Family Medicine; Visit Provider Internal Medicine
PROC: 0J9P0ZX Drainage of Left Lower Leg Subcutaneous Tissue and Fascia, Open Approach, Diagnostic (ICD-10-PCS; principal; 2024-05-30 08:00)
DX: L02.416 Cutaneous abscess of left lower limb (principal); E87.20 Acidosis, unspecified; N17.9 Acute kidney failure, unspecified; L03.116 Cellulitis of left lower limb; B95.8 Unspecified staphylococcus as the cause of diseases classified elsewhere; R19.7 Diarrhea, unspecified; E10.65 Type 1 diabetes mellitus with hyperglycemia; E86.0 Dehydration; E83.42 Hypomagnesemia; R00.0 Tachycardia, unspecified; M70.42 Prepatellar bursitis, left knee; I10 Essential (primary) hypertension; F17.210 Nicotine dependence, cigarettes, uncomplicated; F15.10 Other stimulant abuse, uncomplicated
CPT/HCPCS: 36415; 36416; 73723; 80053; 80202; 82962; 83605; 83735; 84100; 85025; 85651; 86140; 86850; 86900; 87040; 87070; 87075; 87077; 87186; 87205; 87493; 87641; 96365; 96367; 96372; 97161; 99285; A9577; G0378; J0131; J0690; J0692; J0696; J1650; J1815; J1885; J2020; J2405; J2704; J3010; J3370; J3475; J7030; J7050

== ENCOUNTER 2024-06-07 13:13 | Inpatient (IN) | payer MEDICAID, SELFPAY ==
[2024-06-07] VITALS (64 sets, daily range): BP systolic 87–143; BP diastolic 43–91; PULSE 104–124; RESP 10–26; TEMP 35.6–37.1; O2SAT 95–100; BMI 21.5; BMI 20.3
--- NOTE | 2024-06-07 13:15 | XRR_ITS ---
PROCEDURE INFORMATION: Exam: XR Chest Exam date and time: 06/07/2024 2:17 PM Age: 29 years old Clinical indication: Cough and dyspnea; Additional info: Dyspnea/cough TECHNIQUE: Imaging protocol: Radiologic exam of the chest. Views: 1 view. COMPARISON: CR XR chest 1V portable [id number] 05/11/2024 9:33 AM FINDINGS: Lungs: Unremarkable. No consolidation. Pleural spaces: Unremarkable. No pleural effusion. No pneumothorax. Heart/Mediastinum: Unremarkable. No cardiomegaly. Bones/joints: Unremarkable. XR/XR chest 1V portable [id number] IMPRESSION: No acute findings.
--- NOTE | 2024-06-07 13:18 | ED_ITS ---
HPI - General Adult 2 General: Chief complaint: Recheck/Abnormal Lab/Rx Stated complaint: hyperglycemia Time Seen by Provider: 06/07/24 13:14 History of Present Illness: 29-year-old male presents emergency room with complaints of nonbreathing reports of elevated blood sugar. Has not had any insulin in the last day and a half. Patient has been seen multiple times in the past for noncompliance with his diabetic regimen. He was recently hospitalized with a prepatellar bursitis and cellulitis. He had a bursectomy done culture not growing a Staph aureus is some mild resistance. Sutures are still in place for this. He denies any recent fever sweats or chills. Denies cough or abdominal pain Associated symptoms: Reports dyspnea and malaise; Deny chest pain or rash Related Data Previous Rx's Medication Instructions Recorded blood-glucose meter ([place] [employer] (PIROX)Touch #1 ea 04/02/22 Ultra2 Meter kit) blood sugar diagnostic #300 ea 05/12/22 insulin aspart U-100 100 unit/mL 10 unit (0.1 mL) SUBCUT TID #15 mL 02/10/24 (3 mL) subcutaneous pen (Novolog FlexPen U-100 Insulin aspart) insulin detemir U-100 100 unit/mL 30 unit (0.3 mL) SUBCUT QPM #15 mL 02/10/24 (3 mL) subcutaneous pen (Levemir FlexPen) aspirin 81 mg tablet,delayed 81 mg PO BID Blood Clot prevention 05/31/24 release postop 14 days #28 tabs cefdinir 300 mg capsule 300 mg PO BID 10 days #20 caps 05/31/24 doxycycline hyclate 100 mg capsule 100 mg PO BID 10 days #20 caps 05/31/24 loperamide 2 mg capsule 2 mg PO QID PRN Diarrhea 30 days 05/31/24 #30 caps Allergies Allergy/AdvReac Type Severity Reaction Status Date / Time No Known Allergies Allergy Verified 05/11/24 09:19 Review of Systems 2 Const: Reports: fatigue and malaise; Denies: fever(s) or chills Card: Denies: chest pain Resp: Reports: dyspnea GI: Denies: abdominal pain : Denies: dysuria, urinary frequency or urinary urgency Musc: Denies: neck pain or back pain Skin/Breast: Denies: rash PFSH ED 2 PFSH: Medical History DKA (diabetic ketoacidosis) Metabolic acidosis Acute kidney injury DKA, type 1 Nicotine dependence, cigarettes, uncomplicated Hypokalemia Polysubstance abuse Type 1 diabetes mellitus, uncontrolled DKA (diabetic ketoacidosis) History of thyroid nodule right complex nodule, FNA showed benign 03/2022 Transaminitis Hypertension Hyperthyroidism subclinical Amphetamine abuse Long-term insulin use Diabetes type 1, uncontrolled History of DKA Surgical History History of tonsillectomy Family History Other Family history unknown Social History Smoking and tobacco/nicotine status: current every day tobacco/nicotine user cigarettes Packs smoked per day: 1 Alcohol intake: former Substance/Drug Use: current Physical Exam 2 Const: ORIENTATION/CONSCIOUSNESS: Yes awake, Yes oriented to person, Yes oriented to place and Yes oriented to time HENMT: COMMON NORMALS: normocephalic, atraumatic and hearing grossly normal bilaterally HEAD & SCALP: normocephalic and atraumatic Resp: COMMON NORMALS: normal respiratory effort, No retractions, No use of accessory muscles and clear to auscultation bilaterally AUSCULTATION: clear to auscultation bilaterally Cardio: COMMON NORMALS: regular rate, regular rhythm and No murmurs present (Cardio) RATE: regular rate RHYTHM: regular rhythm GI: COMMON NORMALS: Soft to palpation and No hepatosplenomegaly present A USCULTATION: Yes normoactive bowel sounds PALPATION: Yes Soft to palpation, No Tenderness to palpation present (GI), No Guarding due to palpation present (GI) and Yes No hepatosplenomegaly present Extremity: COMMON NORMALS: normal to inspection, capillary refill normal, no clubbing, cyanosis or edema, no calf tenderness and no pedal edema OTHER: Left knee sutures in place there is some desquamation of the skin surrounding the incision overlying the patella and extending infrapatellar. There is no redness no erythema no induration no joint effusion Neuro: SENSORIUM/ORIENTATION: Yes oriented to person, Yes oriented to place and Yes oriented to time Skin: COMMON NORMALS: no rashes or lesions noted GENERAL SKIN EXAM: no rashes or lesions noted Course 2 Vital Signs: Vital signs: Vital Signs Temperature 97.6 F 06/07/24 16:15 Pulse Rate 122 H 06/07/24 16:17 Respiratory Rate 16 06/07/24 16:17 Blood Pressure 126/81 06/07/24 16:17 Pulse Oximetry 99 06/07/24 16:41 Oxygen Delivery Me thod Room Air 06/07/24 17:11 MDM - General Adult Medical Decision Making DKA with severe hyperkalemia. Patient treated IV fluids insulin insulin drip was also given bicarb and calcium chloride because of his severe hyperkalemia. BMP scheduled and rechecked potassium improved to 5.1 did discuss with the hospitalist he is aware. Patient stabilized in ER transfer to ICU on insulin drip. Medical Records I reviewed the patient's medical records. Lab Data I reviewed the patient's lab results. 06/07/24 13:35 06/07/24 15:30 Radiology Impressions Chest X-Ray 06/07/24 13:15 IMPRESSION: No acute findings. Knee X-Ray 06/07/24 13:47 IMPRESSION: No acute findings. Laboratory Results WBC 35.58 10^3/uL (3.29-11.43) H* 06/07/24 13:35 RBC 4.57 10^6/uL (3.85-5.65) 06/07/24 13:35 Hgb 12.50 g/dL (11.27-16.99) 06/07/24 13:35 Hct 44.8 % (37-53) 06/07/24 13:35 MCV 98.0 fl (82-101) 06/07/24 13:35 MCH 27.4 pg (27-33) 06/07/24 13:35 MCHC 27.9 g/dL (30-55) L 06/07/24 13:35 RDW 14.3 % (12.1-15.1) 06/07/24 13:35 Plt Count 725 10^3/cmm (157-399) H 06/07/24 13:35 MPV 10.4 fL (7.4-10.4) 06/07/24 13:35 Neut % (Auto) 88.0 % 06/07/24 13:35 Lymph % (Auto) 4.6 % 06/07/24 13:35 [place] % (Auto) 5.3 % 06/07/24 13:35 Eos % (Auto) 0.0 % 06/07/24 13:35 Baso % (Auto) 0.3 % 06/07/24 13:35 Neut # (Auto) 31.30 10^3/uL (1.8-7.7) H 06/07/24 13:35 Lymph # (Auto) 1.7 10^3/uL (0.8-4.8) 06/07/24 13:35 [place] # (Auto) 1.9 10^3/uL (0.2-0.9) H 06/07/24 13:35 Eos # (Auto) 0.0 10^3/uL (0.0-0.8) 06/07/24 13:35 Baso # (Auto) 0.1 10^3/uL (0.0-0.1) 06/07/24 13:35 Nucleated RBC % (auto) 0 % 06/07/24 13:35 Nucleated RBCs # 0.0 /100WBC 06/07/24 13:35 ESR 25 mm/hr (0-10) H 06/07/24 13:35 PT 15.80 SECONDS (12.1-14.9) H 06/07/24 13:35 INR 1.22 (0.8-1.2) H 06/07/24 13:35 Specimen Type Arterial 06/07/24 13:22 Sample Site Brachial, right 06/07/24 13:22 ABG pH 6.96 (7.35-7.45) L* 06/07/24 13:22 ABG pCO2 7.0 mmHg (35-45) L* 06/07/24 13:22 ABG pO2 149.0 mmHg (80.0-100.0) H 06/07/24 13:22 ABG PO2/FiO2 Ratio 709 06/07/24 13:22 ABG HCO3 1.6 mmol/L (22-26) L 06/07/24 13:22 ABG O2 Saturation 98.4 06/07/24 13:22 ABG Base Excess -28.4 mmol/L (-2.0-2.0) L 06/07/24 13:22 [place] Test N/a 06/07/24 13:22 A-a O2 Gradient Not Reportable 06/07/24 13:22 Hematocrit 38.4 % (42-52) L 06/07/24 13:22 Hgb O2 Saturation 96.4 % (95-100) 06/07/24 13:22 Carboxyhemoglobin 0.6 %THgb (0.4-20.1) 06/07/24 13:22 Methemoglobin 1.4 % (0.4-1.5) 06/07/24 13:22 Total Hemoglobin 12.5 g/dL (14-18) L 06/07/24 13:22 Sodium 121.0 mmol/L (131-143) L 06/07/24 13:22 Potassium 7.6 mmol/L (3.5-5.0) H 06/07/24 13:22 Glucose > 1080.0 mg/dL (70-115) H 06/07/24 13:22 Ionized Calcium 1.2 mmol/L (1.1-1.4) 06/07/24 13:22 O2 Delivery Device Room air 06/07/24 13:22 FiO2 21.0 % 06/07/24 13:22 Architectural Engineer ID Amh 06/07/24 13:22 Sodium 120 mmol/L (136-145) L 06/07/24 13:35 Potassium 8.4 mmol/L (3.5-5.1) H* 06/07/24 13:35 Chloride 79 mmol/L (98-107) L 06/07/24 13:35 Carbon Dioxide 2 mmol/L (22-29) L* 06/07/24 13:35 Anion Gap 47.4 (5-19) H 06/07/24 13:35 BUN 54 mg/dL (6-20) H 06/07/24 13:35 Creatinine 2.8 mg/dL (0.7-1.2) H 06/07/24 13:35 GFR Calculation 27.3 mL/min (90-130) L 06/07/24 13:35 Glucose 1212 mg/dL (65-115) H* 06/07/24 13:35 POC Glucose > 600 mg/dL (70-110) H* 06/07/24 14:50 Estimat Average Glucose 275 06/07/24 13:35 Hemoglobin A1c 11.2 % (4.0-6.0) H 06/07/24 13:35 Calculated Osmolality 327 mOsm/kg (285-295) H 06/07/24 13:35 Lactic Acid 5.0 mmol/L (0.5-2.2) H* 06/07/24 13:35 Calcium 8.0 mg/dL (8.5-10.5) L 06/07/24 13:35 Phosphorus 10.2 mg/dL (2.5-4.5) H* 06/07/24 13:35 Magnesium 2.7 mg/dL (1.7-2.3) H 06/07/24 13:35 Total Bilirubin 0.2 mg/dL (0.15-1.2) 06/07/24 13:35 AST 10 U/L (0-40) 06/07/24 13:35 ALT 24 U/L (0-41) 06/07/24 13:35 Alkaline Phosphatase 196 U/L (40-130) H 06/07/24 13:35 Total Protein 6.6 g/dL (6.6-8.7) 06/07/24 13:35 Albumin 3.8 g/dL (3.5-5.2) 06/07/24 13:35 Globulin 2.8 g/dL (1.3-4.6) 06/07/24 13:35 Lipase 7 U/L (13-60) L 06/07/24 13:35 Serum Ketones Positive (Negative) H 06/07/24 13:35 Adenovirus (PCR) Not detected (NOT DETECT) 06/07/24 14:50 C. pneumoniae DNA (PCR) Not detected (NOT DETECT) 06/07/24 14:50 Coronavirus 229E (PCR) Not detected (NOT DETECT) 06/07/24 14:50 Human Metapneumovir PCR Not detected (NOT DETECT) 06/07/24 14:50 Influenza A (H1) PCR Not detected (NOT DETECT) 06/07/24 14:50 Influ A (H1/09) PCR Not detected (NOT DETECT) 06/07/24 14:50 Influenza A (H3) PCR Not detected (NOT DETECT) 06/07/24 14:50 Influenza Type A (PCR) Not detected (NOT DETECT) 06/07/24 14:50 Influenza Type B (PCR) Not detected (NOT DETECT) 06/07/24 14:50 M. pneumoniae (PCR) Not detected (NOT DETECT) 06/07/24 14:50 Parainfluenza 1 (PCR) Not detected (NOT DETECT) 06/07/24 14:50 Parainfluenza 2 (PCR) Not detected (NOT DETECT) 06/07/24 14:50 Parainfluenza 3 (PCR) Not detected (NOT DETECT) 06/07/24 14:50 Parainfluenza 4 (PCR) Not detected (NOT DETECT) 06/07/24 14:50 RSV Type A (PCR) Not detected (NOT DETECT) 06/07/24 14:50 RSV Type B (PCR) Not detected (NOT DETECT) 06/07/24 14:50 Entero/Rhino (PCR) Not detected (NOT DETECT) 06/07/24 14:50 SARS-CoV-2 (PCR) Not detected (NOT DETECT) 06/07/24 14:50 All radiology interpretation(s) finalized by discharge Critical Care Time 2 Critical Care Time: Critical Care Time: Yes Total Critical Care Time: 40 Attestation: The high probability of a clinically significant, sudden or life threatening deterioration of the patient's cardiovascular respiratory system(s) required my full and direct attention, intervention and personal management. The critical care time is as shown. This time is in addition to time spent performing any reported procedures but includes the following: [x] Data and vital sign review and interpretation [x] Patient assessment, examination and intervention [x] Documentation [x] Medication orders and management Discharge Plan Discharge Patient Disposition: Admitted As Inpatient Admit Provider: Malcolm Cr Clinical Impression: DKA (diabetic ketoacidosis), Acute kidney injury Condition: Stable Coding Level of Care Code ED [employer] Liaison for Jazmín Agosto
[2024-06-07 13:29] LABS: Glucose Point of Care > 600 mg/dL (70-110)
[2024-06-07 13:33] LABS: Arterial Blood Gas Hematocrit 38.4 % (42-52); Base Excess ABG -28.4 mmol/L (-2.0-2.0); Blood Gas Operator Identificat AMH; Blood Gas Sample Site Brachial, right; Blood Gas Sample Type Arterial; Carboxyhemoglobin 0.6 %THgb (0.4-20.1); Glucose Level-ABG > 1080.0 mg/dL (70-115); HCO3 ABG 1.6 mmol/L (22-26); HGB O2 Sat 96.4 % (95-100); Ionized Calcium Level - ABG 1.2 mmol/L (1.1-1.4); Methemoglobin 1.4 % (0.4-1.5); Oxygen Device ROOM AIR; Oxygen Saturation ABG 98.4; PO2 FiO2 Ratio Arterial Blood 709; Potassium Level - ABG 7.6 mmol/L (3.5-5.0); Total Hemoglobin 12.5 g/dL (14-18)
[2024-06-07 13:35] LABS: ABG PH Result 6.96 (7.35-7.45)
[2024-06-07] MEDS: insulin regular-human 100 units/1 mL 10 UNIT IVP (13:35)
[2024-06-07 13:42] LABS: Basophils # 0.1 10^3/uL (0.0-0.1); Basophils % 0.3 %; Hematocrit 44.8 % (37-53); Lymphocytes # 1.7 10^3/uL (0.8-4.8); Lymphocytes % 4.6 %; Mean Corpuscular HGB Conc 27.9 g/dL (30-55); Mean Corpuscular Hemoglobin 27.4 pg (27-33); Mean Platelet Volume 10.4 fL (7.4-10.4); Monocytes # 1.9 10^3/uL (0.2-0.9); Monocytes % 5.3 %; Nucleated Red Blood Cells % 0 %; Platelet Count 725 10^3/cmm (157-399); Red Blood Count 4.57 10^6/uL (3.85-5.65); Red Cell Distribution Width 14.3 % (12.1-15.1)
[2024-06-07 13:45] LABS: White Blood Count 35.58 10^3/uL (3.29-11.43)
--- NOTE | 2024-06-07 13:47 | XRR_ITS ---
PROCEDURE INFORMATION: Exam: XR Left Knee Exam date and time: 06/07/2024 2:22 PM Age: 29 years old Clinical indication: Pain; Knee; Left; Additional info: Recetn infection TECHNIQUE: Imaging protocol: Radiologic exam of the left knee. Views: 3 views. COMPARISON: MR knee LT wo/w con [id number] 05/29/2024 4:22 PM FINDINGS: Bones/joints: Normal. Soft tissues: Normal. XR/XR knee LT 3V* [id number] IMPRESSION: No acute findings.
[2024-06-07 13:52] LABS: Ketone (Acetest) Serum Positive (Negative)
--- NOTE | 2024-06-07 13:54 | ECG_ITS ---
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 Measurements Intervals [place] Rate: 110 P: 75 CA: 259 QRS: -34 QRSD: 172 T: 94 QT: 419 QTc: 569 Interpretive Statements Possible SINUS TACHYCARDIA WITH FIRST DEGREE AV BLOCK RIGHT ATRIAL ENLARGEMENT [0.3mV P-WAVE] LEFT ATRIAL ENLARGEMENT [-0.15mV P-WAVE IN V1/V2] LEFT AXIS DEVIATION [QRS AXIS < -30] LEFT BUNDLE BRANCH BLOCK [120+ ms QRS DURATION, 80+ ms Q/S IN V1/V2, 85+ ms R IN I/aVL/V5/V6] Compared to ECG 05/11/2024 09:17:48 First degree AV block now present Atrial abnormality now present Left-axis deviation now present Left bundle-branch block now present Myocardial infarct finding no longer present Electronically Signed On 06-07-2024 20:34:56 CDT by Bishnu Dennis M.D. [id number]
[2024-06-07] MEDS: sodium bicarbonate 8.4% 1 mEq/mL 50mL Syr 100 MEQ IVP (13:58)
[2024-06-07 14:02] LABS: Alanine Aminotransferase 24 U/L (0-41); Albumin Level 3.8 g/dL (3.5-5.2); Alkaline Phosphatase 196 U/L (40-130); Anion Gap 47.4 (5-19); Aspartate Amino Transferase 10 U/L (0-40); Blood Urea Nitrogen 54 mg/dL (6-20); Chloride 79 mmol/L (98-107); Globulin 2.8 g/dL (1.3-4.6); Glomerular Filtration Rate 27.3 mL/min (90-130); Lipase 7 U/L (13-60); Magnesium 2.7 mg/dL (1.7-2.3); Sodium 120 mmol/L (136-145); Total Bilirubin 0.2 mg/dL (0.15-1.2); Total Protein 6.6 g/dL (6.6-8.7)
[2024-06-07 14:10] LABS: Osmolality Calculated 327 mOsm/kg (285-295)
[2024-06-07 14:17] LABS: Creatinine Clr Calc Pharmacy 39.8054
[2024-06-07 14:19] LABS: Carbon Dioxide 2 mmol/L (22-29)
[2024-06-07 14:21] LABS: Glucose 1212 mg/dL (65-115); Potassium 8.4 mmol/L (3.5-5.1)
[2024-06-07 14:27] LABS: Phosphorus 10.2 mg/dL (2.5-4.5)
[2024-06-07] MEDS: calcium chloride 10% Syr 10 mL 1 GM IVP (14:33)
[2024-06-07] MEDS: sodium chloride 0.9% 1,000 ML 999 ML IV ×2 (14:36→15:52)
[2024-06-07] MEDS: vancomycin 1,000 MG in sodium chloride 0.9% 250 ML 250 MG IV (14:43)
[2024-06-07] MEDS: INSULIN REGULAR IN 0.9 % NACL 100 UNIT/100 ML BAG 6.5 UNIT IV (14:55)
[2024-06-07 15:00] LABS: Glucose Point of Care > 600 mg/dL (70-110)
[2024-06-07 15:41] LABS: Reflex Lactate Order REFLEX LACTIC ORDERD
--- NOTE | 2024-06-07 15:53 | P.HP_ITS ---
Providers/Chief Complaint 2 Admitting Physician: Malcolm Cr MD Primary Care Provider: Adi Castellon MD Chief Complaint: hyperglycemia History of Present Illness Jean Miller is a 29 year old male with a past medical history of type 1 diabetes mellitus, poorly controlled, recent hospitalization in leaving AGAINST MEDICAL ADVICE, for left knee septic prepatellar bursitis with abscess with cellulitis, status post irrigation and debridement with bursectomy, cultures growing Staph aureus, due to tachypnea, elevated blood sugars, altered mental status. Currently patient is alert oriented x 0, he does awaken to sternal rub, does withdraw from pain, but easily falls back asleep, blood pressure 126/81, heart rate 110 sinus tachycardia respiratory rate 16, saturating high 90s on room air, maintaining his airway, GCS score is 10. According to patient's mother, patient does not live with her, he lives with 2 other females, she tells me that over the weekend, he was having nausea, vomiting, not feeling well with elevated blood sugars. In the emergency room he was found to have white blood cell count of 35,000, platelet count of 725, neutrophilic leukocytosis, chest x- ray no focal pneumonia, UA within normal limits, left knee x-ray within normal limits was given 1 dose of vancomycin, potassium was 8.4, was given insulin, bicarb, calcium chloride, IV fluids. Found to have severe metabolic acidosis bicarb 2, pH 6.96, anion gap 47.4 was given 100 mEq of bicarb, IV fluids. Blood sugar over 1080, currently on insulin drip. Serum ketones positive. Hospitalist team was called for admission, mother is at bedside, we discussed patient's critical status with his hyperkalemia, severe metabolic acidosis, diabetic ketoacidosis, lactic acidosis of 5, leukocytosis, patient's status is critical, prognosis guarded, will monitor him closely in the intensive care unit, low threshold for intubation, he is a full code, I have confirmed with mother multiple times, we also discussed the possibility of dialysis potassium is 8.4 creatinine is 2.8, if his hyperkalemia does not correct, he might need temporary dialysis, she is agreeable if needed, Review of Systems 2 General: Reports: ROS unobtainable due to mental status Medications/Allergies Home Medications Medication Instructions Recorded Confirmed Last Taken Type blood-glucose meter (OneTouch #1 ea 04/02/22 05/28/24 Unknown Rx Ultra2 Meter kit) blood sugar diagnostic #300 ea 05/12/22 05/28/24 Unknown Rx insulin aspart U-100 100 unit/mL 10 unit (0.1 mL) SUBCUT TID #15 mL 02/10/24 05/28/24 05/28/24 Rx (3 mL) subcutaneous pen (Novolog FlexPen U-100 Insulin aspart) insulin detemir U-100 100 unit/mL 30 unit (0.3 mL) SUBCUT QPM #15 mL 02/10/24 05/28/24 05/27/24 Rx (3 mL) subcutaneous pen (Levemir FlexPen) aspirin 81 mg tablet,delayed 81 mg PO BID Blood Clot prevention 05/31/24 Unknown Rx release postop 14 days #28 tabs cefdinir 300 mg capsule 300 mg PO BID 10 days #20 caps 05/31/24 Unknown Rx doxycycline hyclate 100 mg capsule 100 mg PO BID 10 days #20 caps 05/31/24 Unknown Rx loperamide 2 mg capsule 2 mg PO QID PRN Diarrhea 30 days 05/31/24 Unknown Rx #30 caps Allergies Allergy/AdvReac Type Severity Reaction Status Date / Time No Known Allergies Allergy Verified 05/11/24 09:19 PFSH Acute 2 PFSH: Medical History (Updated 06/07/24 @ 16:14 by Malcolm Cr MD) DKA (diabetic ketoacidosis) Metabolic acidosis Acute kidney injury DKA, type 1 Nicotine dependence, cigarettes, uncomplicated Hypokalemia Polysubstance abuse Type 1 diabetes mellitus, uncontrolled DKA (diabetic ketoacidosis) History of thyroid nodule right complex nodule, FNA showed benign 03/2022 Transaminitis Hypertension Hyperthyroidism subclinical Amphetamine abuse Long-term insulin use Diabetes type 1, uncontrolled History of DKA Surgical History History of tonsillectomy Family History Other Family history unknown Social History Smoking and tobacco/nicotine status: current every day tobacco/nicotine user cigarettes Packs smoked per day: 1 Alcohol intake: former Substance/Drug Use: current Vitals/I&O/Wt Last Vital Signs Temp 96.1 F L 06/07/24 13:14 Pulse 122 H 06/07/24 15:00 Resp 16 06/07/24 15:00 BP 126/81 06/07/24 15:00 Pulse Ox 100 06/07/24 15:00 O2 Del Method Room Air 06/07/24 14:20 06/07/24 06/07/24 06/07/24 06:59 14:59 22:59 Intake Total 1000 / 1000 Balance 1000 / 1000 Weight last 48 hrs Weight 68.039 kg Physical Exam 2 Const: COMMON NORMALS: no acute distress EXAM LIMITATIONS: altered mental status ORIENTATION/CONSCIOUSNESS: Yes awake and Yes confused; not oriented to person, not oriented to place and not oriented to time HENMT: COMMON NORMALS: normocephalic HEAD & SCALP: normocephalic Eye: COMMON NORMALS: Equal, round and reactive pupils present Neck/C-Spine: COMMON NORMALS: no JVD Lymph: LYMPHATIC: no lymphadenopathy noted Resp: COMMON NORMALS: normal respiratory effort, No retractions, No use of accessory muscles and clear to auscultation bilaterally AUSCULTATION: clear to auscultation bilaterally OTHER: Tachypnea, Kussmaul respiration Cardio: COMMON NORMALS: no JVD, regular rhythm, S1 normal heart sound present and S2 normal heart sound present RATE: tachycardic RHYTHM: regular rhythm HEART SOUNDS: S1 normal heart sound present and S2 normal heart sound present GI: COMMON NORMALS: Normal to inspection, nondistended, normoactive bowel sounds present, Soft to palpation and non-tender Extremity: COMMON NORMALS: no calf tenderness and no pedal edema Neuro: OTHER: Withdraws from pain, opens his eyes to his name, opens his eyes to sternal rub, pupils equal round reactive to light, tracks objects with his eyes, GCS score 10 Sepsis: Is patient septic: Yes Focused sepsis exam performed: Yes F ocused sepsis exam: DP PT pulses palpable, cap refill greater than 2 seconds, no significant mottling Date exam was performed: 06/07/24 Time exam was performed: 16:12 Data 06/07/24 13:35 06/07/24 13:35 Micro: Microbiology 06/07/24 14:34 Blood Culture - Preliminary Blood SPECIMEN COLLECTED 06/07/24 14:35 Blood Culture - Preliminary Blood SPECIMEN COLLECTED A&P Assessment and plan (1) DKA (diabetic ketoacidosis): (2) Prepatellar abscess: (3) Lower extremity cellulitis: (4) Prepatellar bursitis of left knee: (5) Acute renal failure: (6) Lactic acidosis: (7) Sepsis: Plan Diabetic ketoacidosis -pH 6.96, pCO2 2, potassium 8.4, anion gap 47.4, blood sugar over thousand, ketones positive ?PLAN -DKA protocol -Will start bicarb drip at 150 cc an hour, based upon next BMP will consider switching to normal saline -Monitor serum bicarb closely -Monitor BMP every 4 hours -Monitor blood sugar every hour -Continue insulin drip -Once potassium dropped below 4.5, will replace -Once blood sugar drops below 250, switch to D5 half-normal saline with 20 KCl -Once anion gap below 14, will switch to subcu insulin -Keep n.p.o. -Neurochecks -Aspiration precautions -Monitor mentation closely Lactic acidosis, IV fluids as above Sepsis -Patient recently left AGAINST MEDICAL ADVICE -Was admitted for left lower extremity cellulitis, concern for left knee prepatellar abscess status post incision and drainage, with bursectomy -Left AGAINST MEDICAL ADVICE, was discharged with p.o. antibiotics -Surgical cultures growing Staph aureus -Blood cultures within normal limits -For now continue broad-spectrum antibiotic therapy vancomycin, Zosyn -Follow repeat blood cultures -CRP, Pro-Unruly, sed rate -On examination, left knee, sutures are in place, site is erythematous, slightly swollen, slightly warm, monitor closely Acute renal failure, creatinine 2.8 likely secondary dehydration, IV fluids Hyperkalemia -Potassium 8.4 -Status post bicarb, IV fluids, insulin -Currently on bicarb drip, monitor potassium closely risk of hypokalemia -Monitor serum sodium closely, as patient is diabetic ketoacidosis, risk of hypokalemia, Increased anion gap metabolic acidosis, lactic acidosis, acute renal failure -pH 6.96, bicarb 2 -On bicarb drip Full code DVT prophylaxis Lovenox Status critical, prognosis guarded Attestations 2 Medical Necessity Statement*: Patient requires hospitalization, inpatient, greater than 2 midnights, for diabetic ketoacidosis, severe metabolic acidosis, acute renal failure, sepsis, lactic acidosis, concerns for left lower extremity cellulitis with left knee prepatellar abscess status post incision and drainage and bursectomy in which patient left AGAINST MEDICAL ADVICE, cultures growing Staph aureus, hyperkalemia Coding Level of Care Code Critical Care >/= 30 minutes Critical care time (in minutes): 60 The high probability of a clinically significant, sudden or life threatening deterioration, as referenced in this documentation, required my full and direct attention, intervention and personal management. The critical care time shown is in addition to time spent performing any reported separately billable procedures and includes the following: [x] Data and vital sign review and interpretation [x ] Patient assessment, examination and intervention [x] Medication orders and management [x] Patient/Family updates as able [x] Care Coordination and Documentation. Diagnoses DKA (diabetic ketoacidosis) E11.10 Prepatellar abscess L02.419 Lower extremity cellulitis L03.119 Prepatellar bursitis of left knee M70.42 Acute renal failure N17.9 Lactic acidosis E87.2 Sepsis A41.9
[2024-06-07 15:55] LABS: Anion Gap 39.1 (5-19); Blood Urea Nitrogen 48 mg/dL (6-20); Calcium 8.3 mg/dL (8.5-10.5); Chloride 95 mmol/L (98-107); Glomerular Filtration Rate 34.3 mL/min (90-130); Potassium 5.1 mmol/L (3.5-5.1); Sodium 134 mmol/L (136-145)
[2024-06-07 15:56] LABS: C Reactive Protein 5.3 mg/L (0.0-4.9)
[2024-06-07 16:01] LABS: INR 1.22 (0.8-1.2)
[2024-06-07 16:02] LABS: Erythrocyte Sedimentation Rate 25 mm/hr (0-10)
[2024-06-07 16:04] LABS: Osmolality Calculated 330 mOsm/kg (285-295); Procalcitonin 0.46 ng/mL (0-0.5)
[2024-06-07 16:12] LABS: Troponin(5th) Baseline 68 ng/L (0-15)
[2024-06-07] MEDS: sodium bicarbonate 50 MEQ in sodium chloride 0.45% 1,000 ML 150 MEQ IV ×2 (16:13→22:56)
[2024-06-07 16:31] LABS: Carbon Dioxide 5 mmol/L (22-29); Creatinine Clr Calc Pharmacy 47.4682
[2024-06-07 16:32] LABS: Glucose 802 mg/dL (65-115)
--- NOTE | 2024-06-07 16:32 | P.PHAVANC_ITS ---
Vancomycin Goal - Goal Vancomycin Goal:: 10-15 mg/L Vancomycin Indication:: Other (CELLULITIS) - Therapy Current therapy:: Pip/Tazo (3.375 GM Q8H) Day of therpy:: Day [1]of [] . Actual body weight (kg): 64.41 kg Baring body weight: 73 KG Dosing weight (kg): 64.41 KG - Data Labs: WBC 35.58 10^3/uL (3.29-11.43) H* 06/07/24 13:35 RBC 4.57 10^6/uL (3.85-5.65) 06/07/24 13:35 Hgb 12.50 g/dL (11.27-16.99) 06/07/24 13:35 Hct 44.8 % (37-53) 06/07/24 13:35 MCV 98.0 fl (82-101) 06/07/24 13:35 MCH 27.4 pg (27-33) 06/07/24 13:35 MCHC 27.9 g/dL (30-55) L 06/07/24 13:35 RDW 14.3 % (12.1-15.1) 06/07/24 13:35 Sodium 134 mmol/L (136-145) L D 06/07/24 15:30 Potassium 5.1 mmol/L (3.5-5.1) 06/07/24 15:30 Chloride 95 mmol/L (98-107) L 06/07/24 15:30 Carbon Dioxide 5 mmol/L (22-29) L* 06/07/24 15:30 Anion Gap 39.1 (5-19) H 06/07/24 15:30 BUN 48 mg/dL (6-20) H 06/07/24 15:30 Creatinine 2.3 mg/dL (0.7-1.2) H 06/07/24 15:30 GFR Calculation 34.3 mL/min (90-130) L 06/07/24 15:30 Last dialysis session:: N/A Drug administration history:: Medications Vancomycin HCl 1,000 mg/ (Sodium Chloride) 250 mls @ 250 mls/hr IV Q24H JAMES Piperacillin Sod/Tazobactam (Sod 3.375 gm/ Sodium Chloride) 50 mls @ 12.5 mls/hr IV Q8H JAMES; Protocol Discontinued Medications Vancomycin HCl 1,000 mg/ (Sodium Chloride) 250 mls @ 250 mls/hr IV ONCE ONE; Protocol Stop: 06/07/24 14:46 Last Admin: 06/07/24 16:07 Dose: Infused Treatment plan:: new consult Regimen:: Vancomycin 1000 mg IVPB Q24H Follow up:: SCr daily with AM labs Will check Vancomycin Trough before 4th dose Rationale:: Cmax 35.6 Cpeak 34.4 Cmin 16.7
[2024-06-07 16:33] LABS: NT Pro B Type Natriuretic Pept 686 pg/mL (0-125)
[2024-06-07 16:43] LABS: Estmated Average Glucose 275; Hemoglobin A1C 11.2 % (4.0-6.0)
[2024-06-07 16:48] LABS: Glucose Point of Care > 600 mg/dL (70-110)
[2024-06-07] MEDS: enoxaparin 40 mg/0.4 mL Syringe SUBCUT (16:49)
[2024-06-07] MEDS: pantoprazole 40 mg SDV IVP (16:49)
[2024-06-07] MEDS: piperacillin-tazobactam 3.375 GM in sodium chloride 0.9% (plus) 50 ML IV (16:49)
[2024-06-07 17:00] LABS: Adenovirus Not Detected (NOT DETECT); Chlamydia Pneumoniae Not Detected (NOT DETECT); Coronavirus 229E,HKU1,NL63,OC4 Not Detected (NOT DETECT); Human Metapneumovirus Not Detected (NOT DETECT); Human Rhinovirus/Enterovirus Not Detected (NOT DETECT); Influenza A Not Detected (NOT DETECT); Influenza A H1 Not Detected (NOT DETECT); Influenza A H1-2009 Not Detected (NOT DETECT); Influenza A H3 Not Detected (NOT DETECT); Influenza B Not Detected (NOT DETECT); Mycoplasma Pneumoniae Not Detected (NOT DETECT); Parainfluenza Virus Type 1 Not Detected (NOT DETECT); Parainfluenza Virus Type 2 Not Detected (NOT DETECT); Parainfluenza Virus Type 3 Not Detected (NOT DETECT); Parainfluenza Virus Type 4 Not Detected (NOT DETECT); Respiratory Syncytial Virus A Not Detected (NOT DETECT); Respiratory Syncytial Virus B Not Detected (NOT DETECT); SARS-COV-2 Not Detected (NOT DETECT)
[2024-06-07 17:13] LABS: Glucose Point of Care 537 mg/dL (70-110)
--- NOTE | 2024-06-07 17:16 | ECG_ITS ---
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 Measurements Intervals [place] Rate: 111 P: 85 MO: 136 QRS: 78 QRSD: 75 T: 80 QT: 303 QTc: 413 Interpretive Statements SINUS TACHYCARDIA WITH OCCASIONAL VENTRICULAR PREMATURE COMPLEXES ABNORMAL RHYTHM ECG Compared to ECG 06/07/2024 13:54:12 Ventricular premature complex(es) now present First degree AV block no longer present Atrial abnormality no longer present Left-axis deviation no longer present Left bundle-branch block no longer present Electronically Signed On 06-07-2024 20:40:02 CDT by Bishnu Dennis M.D. [id number]
--- NOTE | 2024-06-07 17:18 | PC.NURSE ---
Verified with Dr. Cr insulin drip titration, from 6.5 units/hr to 10units/hr. Patient glucose at 537 finger stick.
--- NOTE | 2024-06-07 17:20 | XRR_ITS ---
PROCEDURE INFORMATION: Exam: XR Chest Exam date and time: 06/07/2024 6:07 PM Age: 29 years old Clinical indication: Device placement; Picc; Additional info: Post picc insertion, neil placing in icu 9. Shuld be ready at 1800 TECHNIQUE: Imaging protocol: Radiologic exam of the chest. Views: 1 view. COMPARISON: CR (CHEST, ) 06/07/2024 2:17 PM FINDINGS: Tubes, catheters and devices: Right arm PICC tip is in the lower SVC of the level of the superior cavoatrial junction. Lungs: Unremarkable. No consolidation. Pleural spaces: Unremarkable. No pleural effusion. No pneumothorax. Heart/Mediastinum: Unremarkable. No cardiomegaly. Bones/joints: Unremarkable. XR/XR chest 1V portable [id number] IMPRESSION: 1. Right arm PICC in satisfactory position. 2. No acute findings.
[2024-06-07 17:32] LABS: Troponin 5 2HR 68.96 ng/L (0-15); Troponin 5 2HR Delta 0.96 ABS# (0-10)
[2024-06-07 17:35] LABS: Lactic Acid level (Lactate) 2.2 mmol/L (0.5-2.2)
[2024-06-07 17:44] LABS: Anion Gap 32.4 (5-19); Blood Urea Nitrogen 46 mg/dL (6-20); Calcium 8.6 mg/dL (8.5-10.5); Carbon Dioxide 10 mmol/L (22-29); Chloride 100 mmol/L (98-107); Cholesterol 130 mg/dL (0-200); Glomerular Filtration Rate 38.1 mL/min (90-130); HDL Cholesterol 62 mg/dL (60-100); LDL Cholesterol Calculated 42 mg/dL (50-129); LDL HDL Ratio 0.68 RATIO (0.00-3.22); Osmolality Calculated 322 mOsm/kg (285-295); Potassium 4.4 mmol/L (3.5-5.1); Sodium 138 mmol/L (136-145); Thyroid Stimulating Hormone 0.23 uIU/mL (0.27-4.20); Triglycerides 130 mg/dL (0-150)
[2024-06-07 17:53] LABS: Glucose 532 mg/dL (65-115)
[2024-06-07 18:08] LABS: HIV 1 & 2 Antibody Non-Reactive (Non-Reactiv); HIV 1 & 2 Antigen Non-Reactive (Non-Reactiv)
[2024-06-07 18:28] LABS: Glucose Point of Care 334 mg/dL (70-110)
--- NOTE | 2024-06-07 18:32 | PICC.NOTE ---
Triple lumen PICC placed to right basilic vein. Referred to vascular access nurse for PICC placement due to poor access and need for insulin drip and sodium bicarb. Risks and benefits discussed and informed consent obtained via phone from patient mother Elizabet. Right arm assessed with right basilic vein measuring 4.0 mm, straight, and apparent best choice for placement. Using sterile technique and MST, right basilic vein accessed x 1 stick. Mid-arm circumference measured 10 cm from right AC 27 cm. Trimmed cath 43 cm with 1 cm external length noted. CXR shows tip to appear to be in the distal SVC. Awaiting radiologist report. Line secured with stat-lock. Insertion site covered with Biopatch and TSM. Report given to bedside nurse, JENNIFER Hubbard.
[2024-06-07 18:44] LABS: Charge for UA Resulting for Rev
[2024-06-07 18:54] LABS: Bilirubin Urine Negative (Negative); Blood Urine Negative (Negative); Glucose Urine UA 3+ (Normal); Ketones Urine 3+ (Negative); Leukocyte Esterase Urine Negative (Negative); Nitrate Urine Negative (Negative); Protein Urine Negative (Negative); Specific Gravity, Urine 1.016 (1.005-1.030); Urine Appearance Clear (CLEAR); Urine Color Yellow (Yellow); Urobilinogen Urine 0.2 mg/dL (Negative)
[2024-06-07 18:56] LABS: Bacteria Urine None Seen /hpf; Hyaline Casts Urine 2.46 /lpf; RBC Urine 0-2 /hpf (0-2); Squamous Epithelial Cell Urine 0-5 /hpf (0-5); WBC Urine 0-5 /hpf (0-5)
[2024-06-07 18:57] LABS: Amphetamines Screen Urine Positive (Negative); Barbiturates Screen Urine Negative (Negative); Benzodiazepines Screen Urine Negative (Negative); Cocaine Screen Urine Negative (Negative); Opiate Screen Urine Negative (Negative); PCP Screen Urine Negative (Negative); THC Screen Urine Negative (Negative)
[2024-06-07 19:20] LABS: Glucose Point of Care 326 mg/dL (70-110)
[2024-06-07 20:11] LABS: Glucose Point of Care 229 mg/dL (70-110)
[2024-06-07] MEDS: D5-NS 0.45% + KCL 20 mEq 20 MEQ/1,000 ML BAG 125 MEQ IV (20:27)
[2024-06-07 20:40] LABS: Hepatitis A Antibody IgM Non-Reactive (Nonreactive); Hepatitis B Core IgM Non-Reactive (Nonreactive); Hepatitis B Surface Antigen Non-Reactive (Nonreactive); Hepatitis C Virus Antibody Non-Reactive (Nonreactive)
[2024-06-07 21:07] LABS: Glucose Point of Care 142 mg/dL (70-110)
--- NOTE | 2024-06-07 21:10 | PC.NURSE ---
Started Dextrose: Patient's blood glucose was 229, protocol says to maintain drip rate and start dextrose containing fluids. Dr. River was contacted and gave telephone orders to begin the dextrose 1/2 NS with KCL.
--- NOTE | 2024-06-07 21:11 | ECG_ITS ---
[facility] Test Date: 2024-06-07 Pat Name: Jean Miller Department: Room: [facility] Gender: Male Extruder: : 1995 Requested By: Malcolm Cr Order Number: [id number] Remy MD: Bishnu Dennis M.D. Measurements Intervals [place] Rate: 120 P: 80 NC: 142 QRS: 71 QRSD: 85 T: 91 QT: 283 QTc: 400 Interpretive Statements SINUS TACHYCARDIA NONSPECIFIC T-WAVE ABNORMALITY ABNORMAL RHYTHM ECG Compared to ECG 06/07/2024 17:16:57 T-wave abnormality now present Ventricular premature complex(es) no longer present Electronically Signed On 06-08-2024 22:51:04 CDT by Bishnu Dennis M.D. [id number]
[2024-06-07 22:05] LABS: Glucose Point of Care 103 mg/dL (70-110)
[2024-06-07 22:56] LABS: Blood Urea Nitrogen 34 mg/dL (6-20); Calcium 7.8 mg/dL (8.5-10.5); Carbon Dioxide 20 mmol/L (22-29); Chloride 108 mmol/L (98-107); Creatinine Clr Calc Pharmacy 90.9807; Glomerular Filtration Rate 72.6 mL/min (90-130); Glucose 117 mg/dL (65-115); Osmolality Calculated 301 mOsm/kg (285-295); Sodium 141 mmol/L (136-145)
[2024-06-07 22:57] LABS: Troponin 5 6HR 60.56 ng/L (0-15); Troponin 5 6HR Delta -7.44 ng/L (0-12)
[2024-06-07 22:58] LABS: Anion Gap 16.8 (5-19); Potassium 3.8 mmol/L (3.5-5.1)
[2024-06-07 23:02] LABS: Glucose Point of Care 139 mg/dL (70-110)
[2024-06-08] VITALS (96 sets, daily range): BP systolic 109–162; BP diastolic 65–109; PULSE 102–133; RESP 12–23; TEMP 36.7–37.2; O2SAT 84–100
[2024-06-08 00:14] LABS: Glucose Point of Care 150 mg/dL (70-110)
[2024-06-08] MEDS: piperacillin-tazobactam 3.375 GM in sodium chloride 0.9% (plus) 50 ML IV ×3 (00:19→23:16)
--- NOTE | 2024-06-08 00:25 | PC.NURSE ---
Swallow assessment: Patient's gap was 16.8, blood glucose was 139 with insulin drip running at [address] Chacon was contacted and gave telephone orders to assess patient's ability to swallow by giving him some jello. Patient swallowed jello with no issues, Dr. Chacon was made aware.
[2024-06-08] MEDS: insulin glargine 100 units/1 mL 30 UNIT SUBCUT (00:58)
[2024-06-08 01:01] LABS: Glucose Point of Care 174 mg/dL (70-110)
[2024-06-08 02:03] LABS: Glucose Point of Care 180 mg/dL (70-110)
[2024-06-08 02:38] LABS: Anion Gap 14.1 (5-19); Blood Urea Nitrogen 32 mg/dL (6-20); Calcium 7.4 mg/dL (8.5-10.5); Carbon Dioxide 23 mmol/L (22-29); Chloride 107 mmol/L (98-107); Creatinine Clr Calc Pharmacy 99.2517; Glomerular Filtration Rate 80.3 mL/min (90-130); Glucose 189 mg/dL (65-115); Osmolality Calculated 302 mOsm/kg (285-295); Potassium 4.1 mmol/L (3.5-5.1); Sodium 140 mmol/L (136-145)
[2024-06-08 03:06] LABS: Glucose Point of Care 171 mg/dL (70-110)
[2024-06-08 04:13] LABS: Basophils % 0.2 %; Eosinophils % 0.1 %; Hematocrit 30.4 % (37-53); Lymphocytes # 2.2 10^3/uL (0.8-4.8); Lymphocytes % 12.9 %; Mean Corpuscular HGB Conc 31.6 g/dL (30-55); Mean Corpuscular Hemoglobin 27.4 pg (27-33); Mean Corpuscular Volume 86.6 fl (82-101); Mean Platelet Volume 9.8 fL (7.4-10.4); Monocytes # 1.1 10^3/uL (0.2-0.9); Monocytes % 6.3 %; Neutrophils # 13.32 10^3/uL (1.8-7.7); Nucleated Red Blood Cells % 0 %; Platelet Count 448 10^3/cmm (157-399); Red Blood Count 3.51 10^6/uL (3.85-5.65); Red Cell Distribution Width 14.3 % (12.1-15.1); White Blood Count 16.64 10^3/uL (3.29-11.43)
--- NOTE | 2024-06-08 04:26 | PC.NURSE ---
D/C bicarb drip: Patient's carbon dioxide was 23 at morning labs, Dr. Chacon was contacted and gave telephone orders to d/c bicarb drjaciel.
[2024-06-08 04:41] LABS: Alanine Aminotransferase 14 U/L (0-41); Albumin Level 2.9 g/dL (3.5-5.2); Alkaline Phosphatase 117 U/L (40-130); Aspartate Amino Transferase 9 U/L (0-40); Blood Urea Nitrogen 31 mg/dL (6-20); Calcium 7.7 mg/dL (8.5-10.5); Carbon Dioxide 23 mmol/L (22-29); Chloride 107 mmol/L (98-107); Creatinine Clr Calc Pharmacy 98.7323; Globulin 1.6 g/dL (1.3-4.6); Glomerular Filtration Rate 80.3 mL/min (90-130); Glucose 161 mg/dL (65-115); Magnesium 1.9 mg/dL (1.7-2.3); Osmolality Calculated 300 mOsm/kg (285-295); Phosphorus 2.7 mg/dL (2.5-4.5); Sodium 140 mmol/L (136-145); Total Bilirubin 0.2 mg/dL (0.15-1.2); Total Protein 4.5 g/dL (6.6-8.7)
[2024-06-08 04:57] LABS: C.Diff PCR (Lab) NEGATIVE (Negative)
--- NOTE | 2024-06-08 05:03 | PC.NURSE ---
Bloody stool: patient had a moderate black/dark bloody bowel movement. Dr. Chacon was made aware
[2024-06-08] MEDS: sodium chloride 0.9% 1,000 ML 100 ML IV ×2 (05:07→15:15)
[2024-06-08 07:51] LABS: Glucose Point of Care 133 mg/dL (70-110)
[2024-06-08 10:03] LABS: Basophils % 0.3 %; Eosinophils % 0.1 %; Hematocrit 27.3 % (37-53); Lymphocytes # 1.4 10^3/uL (0.8-4.8); Lymphocytes % 9.6 %; Mean Corpuscular HGB Conc 31.9 g/dL (30-55); Mean Corpuscular Hemoglobin 27.7 pg (27-33); Mean Corpuscular Volume 86.9 fl (82-101); Mean Platelet Volume 9.8 fL (7.4-10.4); Monocytes # 0.9 10^3/uL (0.2-0.9); Monocytes % 5.9 %; Neutrophils # 12.18 10^3/uL (1.8-7.7); Neutrophils % 83.6 %; Nucleated Red Blood Cells % 0 %; Platelet Count 386 10^3/cmm (157-399); Red Blood Count 3.14 10^6/uL (3.85-5.65); Red Cell Distribution Width 14.6 % (12.1-15.1); White Blood Count 14.55 10^3/uL (3.29-11.43)
[2024-06-08 10:13] LABS: Ferritin 76 ng/mL (30-400); Iron 30 ug/dL (59-158); Percent Saturation 12.8 % (20-50); Total Iron Binding Capacity 234 mcg/dl; Unsaturated Iron Binding 204 ug/dL (112-347)
[2024-06-08] MEDS: sucralfate 1 gm/10 mL Oral Liq UDC PO ×3 (10:19→21:49)
[2024-06-08 10:20] LABS: INR 1.21 (0.8-1.2)
--- NOTE | 2024-06-08 10:24 | PC.NURSE ---
Patient went to MRI at this time
--- NOTE | 2024-06-08 10:35 | MR_ITS ---
WS: [id number] MRI LEFT KNEE HISTORY: Bursitis COMPARISON: 05/29/2024, radiograph 06/07/2024 Multisequence imaging is performed through the LEFT knee targeted to the soft tissues. This is a noncontrast examination. There is no marrow edema identified to suggest an acute fracture. The prepatellar edema and the edema surrounding the knee has significantly improved since the prior s tudy. The possibly developing abscess in the infrapatellar soft tissues appears significantly improve d in size although no contrast was given for this examination. Overall there has been an improvement. Small joint effusion has improved also. MR/MR knee LT wo con* [id number] IMPRESSION: 1. MRI knee examination was performed without IV contrast. 2. Overall there has been a moderate improvement in the edema and cellulitis s urrounding the LEFT knee. The previously described developing abscess in the in frapatellar subcu and soft tissue is improving. 3. Decrease in size of the joint effusion. 4. No marrow edema.
--- NOTE | 2024-06-08 11:03 | PC.PHAR ---
Pt fills medications at [facility] pharmacy. Life partner, Dede, does not know what medications pt takes. Med rec completed from hospital med list with fill dates and days supply
[2024-06-08 11:04] LABS: C.Diff PCR (Lab) NEGATIVE (Negative)
[2024-06-08 11:51] LABS: Glucose Point of Care 288 mg/dL (70-110)
--- NOTE | 2024-06-08 12:37 | P.CONIM_ITS ---
Providers/Reason For Consult 2 Consulting Physician/Specialty*: Dr. Amaury Campos, DO/General Surgery Reason for Consult*: GI bleed Attending Physician: Malcolm Cr MD Primary Care Provider: Adi Castellon MD History of Present Illness History of Present Illness Jean Miller is a 29 year old male, who is a poorly controlled type I diabetic, presented to the hospital in DKA. He was also found to have melena and acute blood loss anemia. According to the chart he was confused upon admission but he is now oriented x 3. He denies any abdominal pain nausea or emesis. He does report dark tarry stool with clots. Review of Systems 2 General: Reports: 10 or more systems reviewed and unremarkable except in HPI and below Medications/Allergies Home Medications Medication Instructions Recorded Confirmed Last Taken Type blood-glucose meter (OneTouch #1 ea 04/02/22 06/08/24 Unknown Rx Ultra2 Meter kit) blood sugar diagnostic #300 ea 05/12/22 06/08/24 Unknown Rx insulin aspart U-100 100 unit/mL 10 unit (0.1 mL) SUBCUT TID #15 mL 02/10/24 06/08/24 05/28/24 Rx (3 mL) subcutaneous pen (Novolog FlexPen U-100 Insulin aspart) insulin detemir U-100 100 unit/mL 30 unit (0.3 mL) SUBCUT QPM #15 mL 02/10/24 06/08/24 05/27/24 Rx (3 mL) subcutaneous pen (Levemir FlexPen) aspirin 81 mg tablet,delayed 81 mg PO BID Blood Clot prevention 05/31/24 06/08/24 Unknown Rx release postop 14 days #28 tabs cefdinir 300 mg capsule 300 mg PO BID 10 days #20 caps 05/31/24 06/08/24 Unknown Rx doxycycline hyclate 100 mg capsule 100 mg PO BID 10 days #20 caps 05/31/24 06/08/24 Unknown Rx loperamide 2 mg capsule 2 mg PO QID PRN Diarrhea 30 days 05/31/24 06/08/24 Unknown Rx #30 caps hydrocodone 5 mg-acetaminophen 325 1 tab PO Q6H PRN Pain 06/08/24 06/08/24 Unknown History mg tablet ondansetron 4 mg disintegrating 4 mg PO Q8H PRN Nausea And Vomiting 06/08/24 06/08/24 Unknown History tablet Allergies Allergy/AdvReac Type Severity Reaction Status Date / Time No Known Allergies Allergy Verified 05/11/24 09:19 Current Medications Generic Name Dose Route Start Last Admin Trade Name Freq PRN Reason Stop Dose Admin Piperacillin Sod/Tazobactam 50 mls @ 12.5 mls/hr 06/07/24 16:06 06/09/24 08:32 Sod 3.375 gm/ Sodium Chloride IV 12.5 mls/hr Q8H JAMES Administration Protocol Sodium Chloride 1,000 mls @ 100 mls/hr 06/08/24 05:00 06/09/24 12:28 Sodium Chloride 0.9% IV Not Given .Q10H JAMES Vancomycin HCl 1,000 mg/ 250 mls @ 250 mls/hr 06/08/24 11:30 06/09/24 01:41 Sodium Chloride IV Infused Q12H JAMES Infusion Insulin Glargine 15 unit 06/08/24 21:00 06/08/24 20:22 Insulin Glargine 100 Units/1 Ml SUBCUT 15 unit BEDTIME JAMES Administration Insulin Human Lispro 0 unit 06/08/24 08:00 06/09/24 08:32 Insulin Lispro 100 Unit/1 Ml SUBCUT 6 unit WM&BEDTIME JAMES Administration Protocol Pantoprazole Sodium 40 mg 06/08/24 10:45 06/09/24 10:18 Pantoprazole 40 Mg Sdv IVP 40 mg Q12H JAMES Administration Sucralfate 1 gm 06/08/24 09:45 06/09/24 08:34 Sucralfate 1 Gm/10 Ml Oral Liq Udc PO 1 gm Q6H JAMES Administration PFSH Acute 2 PFSH: Medical History DKA (diabetic ketoacidosis) Metabolic acidosis Acute kidney injury DKA, type 1 Nicotine dependence, cigarettes, uncomplicated Hypokalemia Polysubstance abuse Type 1 diabetes mellitus, uncontrolled DKA (diabetic ketoacidosis) History of thyroid nodule right complex nodule, FNA showed benign 03/2022 Transaminitis Hypertension Hyperthyroidism subclinical Amphetamine abuse Long-term insulin use Diabetes type 1, uncontrolled History of DKA Surgical History History of tonsillectomy Family History Other Family history unknown Social History Smoking and tobacco/nicotine status: current every day tobacco/nicotine user cigarettes Packs smoked per day: 1 Alcohol intake: former Substance/Drug Use: current Vitals/I&O/Wt Last Vital Signs Temp 98.2 F 06/09/24 12:00 Pulse 101 H 06/09/24 12:00 Resp 16 06/09/24 12:00 BP 150/105 06/09/24 12:00 Pulse Ox 100 06/09/24 12:00 O2 Del Method Room Air 06/09/24 12:00 06/08/24 06/09/24 06/09/24 22:59 06:59 14:59 Intake Total 1996.667 / 2896.667 783.333 / 3680.000 850 / 850 Output Total 1100 / 1100 1000 / 2100 Balance 896.667 / 1796.667 -216.667 / 1580.000 850 / 850 Weight last 48 hrs Weight 144 lb 6.444 oz Weight 139 lb 15.896 oz Weight 142 lb Weight 142 lb Weight 150 lb Physical Exam 2 Narrative: General : Patient is well developed , no acute distress, oriented x3 Head : Normal cephalic, a-traumatic. Ears : Pinnae and external canal are normal. Hearing is normal. Eyes : PERRLA, Sclera and injection are normal. No conjunctival discharge. Nose : Mucous membranes are without erythema. Throat : buccal mucosa is normal, gums are without significant recession or hypertrophy. Lungs : Equal chest rise bilaterally, no use of accessory muscles, trachea is midline. Cor : Rate and rhythm are normal. Abdomen : Soft, ND, NT, no g/r/m Extremities : No edema, no cyanosis or clubbing, dorsalis pedis pulses are present bilaterally, non-tender to palpation of calves. Upper extremities are normal bilaterally. Back : non-tender to palpation, no CVA tenderness. Neuro : CN II - XII intact, Upper and lower extremities have equal and full strength Data 06/09/24 03:54 06/09/24 03:54 Micro: Microbiology 06/07/24 14:34 Blood Culture - Preliminary Blood NEGATIVE TO DATE 06/07/24 14:35 Blood Culture - Preliminary Blood NEGATIVE TO DATE 06/08/24 09:45 Occult Blood (FIT) - Final Stool - Stool Aspirate A&P Assessment and plan (1) GI bleed: (2) Acute blood loss anemia: Plan Tomorrow for EGD The risks and benefits of the procedure, including bleeding, infection, intestinal perforation requiring surgery, missed lesion were explained to the patient. The patient is understanding of the risks and wishes to proceed. Medical management per hospitalist Coding Level of Care Code 36782 Diagnoses GI bleed K92.2 Acute blood loss anemia D62
[2024-06-08] MEDS: pantoprazole 40 mg SDV IVP ×2 (13:15→21:49)
[2024-06-08] MEDS: vancomycin 1,000 MG in sodium chloride 0.9% 250 ML 250 MG IV ×2 (13:16→23:17)
[2024-06-08] MEDS: insulin lispro 100 unit/1 mL SUBCUT ×2 (13:16→20:22)
--- NOTE | 2024-06-08 13:33 | P.PN_ITS ---
Subjective 2 Subjective: Patient was seen this morning he is alert to person, to place, not to time he follows commands, is a bit drowsy, denies any nausea, no vomiting, no lightheadedness, no dizziness, denies any knee pain, but does tell me that when he walks, he has left knee pain, currently patient has a black tarry bowel movement, denies any abdominal pain, heart rates in the 110s normotensive, denies a history of GI bleeds, is on aspirin as outpatient for DVT prophylaxis after his recent left knee surgery, overnight his anion gap closed, he was transitioned off the insulin drip, on IV fluids, subcu insulin, Lantus, hemoglobin has dropped. started on Protonix, Carafate, spoke to Dr. Campos, general surgery, consulted for acute anemia, with Hemoccult positive stool, plan for EG. Also for recently his hospitalization for septic prepatellar bursitis with abscess and cellulitis, patient left AMA, MRI ordered, nonetheless he was given p.o. antibiotics, cultures growing Staph aureus, spoke to Dr. Le, will consult, continue IV antibiotics, white blood cell count 14.55 Vitals/I&O/Wt Last Vital Signs Temp 98.5 F 06/08/24 09:15 Pulse 120 H 06/08/24 09:00 Resp 15 06/08/24 09:00 BP 136/85 06/08/24 09:00 Pulse Ox 98 06/08/24 08:30 O2 Del Method Room Air 06/08/24 08:21 06/07/24 06/08/24 06/08/24 22:59 06:59 14:59 Intake Total 5315.167 / 5315.167 2184.067 / 7499.234 410 / 410 Output Total 1000 / 1000 800 / 1800 Balance 4315.167 / 4315.167 1384.067 / 5699.234 410 / 410 Weight last 48 hrs Weight 63.5 kg Weight 64.41 kg Weight 64.41 kg Weight 68.039 kg Physical Exam 2 Const: COMMON NORMALS: no acute distress ORIENTATION/CONSCIOUSNESS: Yes awake, Yes oriented to person and Yes oriented to place Resp: COMMON NORMALS: normal respiratory effort, No retractions, No use of accessory muscles and clear to auscultation bilaterally AUSCULTATION: clear to auscultation bilaterally Cardio: COMMON NORMALS: regular rate, regular rhythm, S1 normal heart sound present and S2 normal heart sound present RATE: regular rate RHYTHM: r egular rhythm HEART SOUNDS: S1 normal heart sound present and S2 normal heart sound present GI: COMMON NORMALS: Normal to inspection, nondistended, normoactive bowel sounds present Extremity: COMMON NORMALS: no pedal edema NARRATIVE EXTREMITY EXAM: Left knee, slightly erythematous, slightly swollen, slightly tender, sutures in place Neuro: SENSORIUM/ORIENTATION: Yes oriented to person and Yes oriented to place Data 06/08/24 09:55 06/08/24 04:00 Micro: Microbiology 06/08/24 09:45 Occult Blood (FIT) - Final Stool - Stool Aspirate 06/07/24 14:34 Blood Culture - Preliminary Blood SPECIMEN COLLECTED 06/07/24 14:35 Blood Culture - Preliminary Blood SPECIMEN COLLECTED A&P Assessment and plan (1) DKA (diabetic ketoacidosis): (2) Prepatellar abscess: (3) Lower extremity cellulitis: (4) Prepatellar bursitis of left knee: (5) Acute renal failure: (6) Lactic acidosis: (7) Sepsis: (8) GI bleed: (9) Acute anemia: Plan Diabetic ketoacidosis -Anion gap closed, transitioned off insulin drip ?PLAN -Continue Lantus 30 units at bedtime -Continue insulin sliding scale -Monitor blood sugar closely -Neurochecks -Aspiration precautions -Monitor mentation closely Lactic acidosis, IV fluids as above Sepsis -Patient recently left AGAINST MEDICAL ADVICE -Was admitted for left lower extremity cellulitis, concern for left knee prepatellar abscess status post incision and drainage, with bursectomy -Was found to have subcutaneous tissue abscess, purulent fluid, no deep extension in his left knee joint roughly 5 x 4 x 0.5 cm, cultures growing Staph aureus -Left AGAINST MEDICAL ADVICE, was discharged with p.o. antibiotics -Surgical cultures growing Staph aureus -Blood cultures within normal limits -For now continue broad-spectrum antibiotic therapy vancomycin, Zosyn -Follow repeat blood cultures -On examination, left knee, sutures are in place, site is erythematous, slightly swollen, slightly warm, monitor closely -Left knee MRI pending -Dr. Ha consulted Acute renal failure, resolving Hyperkalemia -Resolved Increased anion gap metabolic acidosis, lactic acidosis, acute renal failure -Resolved GI bleed, with acute anemia -Was on aspirin for surgery as above as outpatient -Hemoccult positive stools, black tarry stool -Evidence of iron deficiency anemia ferritin 76, iron 30 -Hemoglobin down to 8.7 -No hemodynamic compromise but does have sinus tachycardia -For now continue Protonix, Carafate -Clear liquids -Her hemodynamics closely -Lovenox for DVT prophylaxis has been discontinued -General Surgery has been consulted for EGD tomorrow -n p.o. midnight Full code DVT prophylaxis SCDs Status stable, prognosis guarded Patient was seen this morning he is alert to person, to place, not to time he follows commands, is a bit drowsy, denies any nausea, no vomiting, no lightheadedness, no dizziness, denies any knee pain, but does tell me that when he walks, he has left knee pain, currently patient has a black tarry bowel movement, denies any abdominal pain, heart rates in the 110s normotensive, denies a history of GI bleeds, is on aspirin as outpatient for DVT prophylaxis after his recent left knee surgery, overnight his anion gap closed, he was transitioned off the insulin drip, on IV fluids, subcu insulin, Lantus, hemoglobin has dropped. started on Protonix, Carafate, spoke to Dr. Campos, general surgery, consulted for acute anemia, with Hemoccult positive stool, plan for EG. Also for recently his hospitalization for septic prepatellar bursitis with abscess and cellulitis, patient left AMA, MRI ordered, nonetheless he was given p.o. antibiotics, cultures growing Staph aureus, spoke to Dr. Ha, will consult, continue IV antibiotics, white blood cell count 14.55, as patient is n.p.o. midnight decrease patient's Lantus dose in half to 15 units, monitor hemoglobin every 6 hours transfuse if less than 7 Attestations 2 Medical Necessity Statement*: Patient requires hospitalization for acute anemia, GI bleed, concerns for sepsis secondary to left knee infection requiring IV antibiotics, inpatient monitoring, consultation with general surgery, consultation of orthopedic service monitoring hemoglobin Diagnoses DKA (diabetic ketoacidosis) E11.10 Prepatellar abscess L02.419 Lower extremity cellulitis L03.119 Prepatellar bursitis of left knee M70.42 Acute renal failure N17.9 Lactic acidosis E87.2 Sepsis A41.9 GI bleed K92.2 Acute anemia D64.9
[2024-06-08 14:10] LABS: Basophils % 0.2 %; Hematocrit 26.9 % (37-53); Lymphocytes # 1.7 10^3/uL (0.8-4.8); Lymphocytes % 12.7 %; Mean Corpuscular HGB Conc 30.9 g/dL (30-55); Mean Corpuscular Hemoglobin 27.3 pg (27-33); Mean Corpuscular Volume 88.5 fl (82-101); Monocytes # 0.6 10^3/uL (0.2-0.9); Monocytes % 4.6 %; Neutrophils # 10.93 10^3/uL (1.8-7.7); Neutrophils % 82.2 %; Nucleated Red Blood Cells % 0 %; Platelet Count 337 10^3/cmm (157-399); Red Blood Count 3.04 10^6/uL (3.85-5.65); Red Cell Distribution Width 14.8 % (12.1-15.1)
[2024-06-08 17:12] LABS: Glucose Point of Care 128 mg/dL (70-110)
--- NOTE | 2024-06-08 17:15 | P.CONIM_ITS ---
Providers/Reason For Consult 2 Consulting Physician/Specialty*: Lauri Ha, /orthopedic surgery Reason for Consult*: Left knee status post left knee septic prepatellar bursitis abscess I&D, recheck for possible recurrent infection Attending Physician: Malcolm Cr MD Primary Care Provider: Adi Castellon MD History of Present Illness History of Present Illness Jean Miller is a 29 year old male who presented to the hospital and was admitted on 06/07/2024 for for DKA. Patient was admitted on 05/28/2024 for the same diagnosis however did have a septic prepatellar bursitis and abscess that underwent I&D on 05/30/2024. He responded well to this treatment however during that hospitalization he did leave AMA. He is now back admitted for DKA once again and orthopedics was consulted as he did have an elevated white count and wanted to have the left knee status post I&D incision checked to make sure there is no recurrence of the infection. On my evaluation the patient denies having any fevers or chills states he has been walking on this and states that it has been better since his surgery. Review of Systems 2 General: Reports: 10 or more systems reviewed and unremarkable except in HPI and below Medications/Allergies Home Medications Medication Instructions Recorded Confirmed Last Taken Type blood-glucose meter (OneTouch #1 ea 04/02/22 06/08/24 Unknown Rx Ultra2 Meter kit) blood sugar diagnostic #300 ea 05/12/22 06/08/24 Unknown Rx insulin aspart U-100 100 unit/mL 10 unit (0.1 mL) SUBCUT TID #15 mL 02/10/24 06/08/24 05/28/24 Rx (3 mL) subcutaneous pen (Novolog FlexPen U-100 Insulin aspart) insulin detemir U-100 100 unit/mL 30 unit (0.3 mL) SUBCUT QPM #15 mL 02/10/24 06/08/24 05/27/24 Rx (3 mL) subcutaneous pen (Levemir FlexPen) aspirin 81 mg tablet,delayed 81 mg PO BID Blood Clot prevention 05/31/24 06/08/24 Unknown Rx release postop 14 days #28 tabs cefdinir 300 mg capsule 300 mg PO BID 10 days #20 caps 05/31/24 06/08/24 Unknown Rx doxycycline hyclate 100 mg capsule 100 mg PO BID 10 days #20 caps 05/31/24 06/08/24 Unknown Rx loperamide 2 mg capsule 2 mg PO QID PRN Diarrhea 30 days 05/31/24 06/08/24 Unknown Rx #30 caps hydrocodone 5 mg-acetaminophen 325 1 tab PO Q6H PRN Pain 06/08/24 06/08/24 Unknown History mg tablet ondansetron 4 mg disintegrating 4 mg PO Q8H PRN Nausea And Vomiting 06/08/24 06/08/24 Unknown History tablet Allergies Allergy/AdvReac Type Severity Reaction Status Date / Time No Known Allergies Allergy Verified 05/11/24 09:19 Current Medications Generic Name Dose Route Start Last Admin Trade Name Freq PRN Reason Stop Dose Admin Piperacillin Sod/Tazobactam 50 mls @ 12.5 mls/hr 06/07/24 16:06 06/09/24 03:24 Sod 3.375 gm/ Sodium Chloride IV Infused Q8H JAMES Infusion Protocol Sodium Chloride 1,000 mls @ 100 mls/hr 06/08/24 05:00 06/09/24 06:27 Sodium Chloride 0.9% IV 100 mls/hr .Q10H JAMES Administration Vancomycin HCl 1,000 mg/ 250 mls @ 250 mls/hr 06/08/24 11:30 06/09/24 01:41 Sodium Chloride IV Infused Q12H JAMES Infusion Insulin Glargine 15 unit 06/08/24 21:00 06/08/24 20:22 Insulin Glargine 100 Units/1 Ml SUBCUT 15 unit BEDTIME JAMES Administration Insulin Human Lispro 0 unit 06/08/24 08:00 06/08/24 20:22 Insulin Lispro 100 Unit/1 Ml SUBCUT 8 unit WM&BEDTIME JAMES Administration Protocol Pantoprazole Sodium 40 mg 06/08/24 10:45 06/08/24 21:49 Pantoprazole 40 Mg Sdv IVP 40 mg Q12H JAMES Administration Sucralfate 1 gm 06/08/24 09:45 06/09/24 03:05 Sucralfate 1 Gm/10 Ml Oral Liq Udc PO Not Given Q6H JAMES PFSH Acute 2 PFSH: Medical History DKA (diabetic ketoacidosis) Metabolic acidosis Acute kidney injury DKA, type 1 Nicotine dependence, cigarettes, uncomplicated Hypokalemia Polysubstance abuse Type 1 diabetes mellitus, uncontrolled DKA (diabetic ketoacidosis) History of thyroid nodule right complex nodule, FNA showed benign 03/2022 Transaminitis Hypertension Hyperthyroidism subclinical Amphetamine abuse Long-term insulin use Diabetes type 1, uncontrolled History of DKA Surgical History History of tonsillectomy Family History Other Family history unknown Social History Smoking and tobacco/nicotine status: current every day tobacco/nicotine user cigarettes Packs smoked per day: 1 Alcohol intake: former Substance/Drug Use: current Vitals/I&O/Wt Last Vital Signs Temp 98.4 F 06/09/24 04:00 Pulse 100 06/09/24 06:00 Resp 13 06/09/24 04:00 BP 133/86 06/09/24 04:00 Pulse Ox 97 06/09/24 04:00 O2 Del Method Room Air 06/09/24 04:00 06/08/24 06/09/24 06/09/24 22:59 06:59 14:59 Intake Total 1996.667 / 2896.667 783.333 / 3680.000 Output Total 1100 / 1100 1000 / 2100 Balance 896.667 / 1796.667 -216.667 / 1580.000 Weight last 48 hrs Weight 144 lb 6.444 oz Weight 139 lb 15.896 oz Weight 142 lb Weight 142 lb Weight 150 lb Physical Exam 2 Narrative: Left knee examination: Examination of the left knee demonstrates patient has an incision over the prepatellar bursa with stitches in place this is healing well no signs of recurrent infection. Slight punctate areas of irritation by the sutures but there is no localized erythema or redness or cellulitis changes there is no palpable joint effusion he has no pain with micromotion of the knee. There is no significant appreciable recurrent palpable fluctuance noted there is no expressible drainage patient is able to plantarflex and dorsiflex ankle sensation is intact light touch distally. Distal pulses are palpable. Data 06/09/24 03:54 06/09/24 03:54 Other Labs: 06/08/2024 14:02 = WBC count 13.30 downtrended from 35.5 on 06/07 Micro: Microbiology 06/07/24 14:34 Blood Culture - Preliminary Blood NEGATIVE TO DATE 06/07/24 14:35 Blood Culture - Preliminary Blood NEGATIVE TO DATE 06/08/24 09:45 Occult Blood (FIT) - Final Stool - Stool Aspirate MRI: Radiologist's impression: MR/MR knee LT wo con* [id number] IMPRESSION: 1. MRI knee examination was performed without IV contrast. 2. Overall there has been a moderate improvement in the edema and cellulitis surrounding the LEFT knee. The previously described developing abscess in the infrapatellar subcu and soft tissue is improving. 3. Decrease in size of the joint effusion. 4. No marrow edema. A&P Assessment and plan (1) Prepatellar bursitis of left knee: Plan May have regular diet On IV antibiotics Medical management and internal medicine is primary Recommend Toradol if patient can tolerate for anti-inflammatory Pain control per primary Weight-bear as tolerate left lower extremity Labs reviewed MRI reviewed PT/OT No further recommended orthopedic surgical intervention at this time as patient clinically this appears very normal postoperatively there is no signs of recurrent infection erythema or palpable fluctuance. Also clinically patient has good knee range of motion no pain with micromotion. This point in time he is getting close as far as his time for getting sutures out. Ultimately orthopedic surgery team will sign off patient at this time and follow peripherally if there is any questions pertaining to patient's care or his clinical picture changes and would like to have orthopedics reevaluate feel free to contact orthopedics on-call. Otherwise orthopedic surgery team will sign off and follow peripherally. If patient is here at the 10 to 14-day postoperative. Would recommend sutures get removed at that time prior to him leaving. Patient understands agrees with current plan. Questions answered. Coding Level of Care Code Acute Code for Chg Fwd Diagnoses Prepatellar bursitis of left knee M70.42 Time Spent (min) 40
--- NOTE | 2024-06-08 17:47 | PC.NURSE ---
Patient alert and appropriate, still very tired. Patient has had 3 large sticky tarry bowel movements. Tested occult positive. Dr. Cr aware, consult to Dr. Campos surgeon, planned EGD tomorrow
[2024-06-08 20:14] LABS: Glucose Point of Care 258 mg/dL (70-110)
[2024-06-08] MEDS: insulin glargine 100 units/1 mL 15 UNIT SUBCUT (20:22)
[2024-06-08 21:24] LABS: Basophils % 0.3 %; Eosinophils % 0.1 %; Hematocrit 25.1 % (37-53); Lymphocytes # 1.7 10^3/uL (0.8-4.8); Lymphocytes % 16.3 %; Mean Corpuscular HGB Conc 31.5 g/dL (30-55); Mean Corpuscular Hemoglobin 27.6 pg (27-33); Mean Corpuscular Volume 87.8 fl (82-101); Mean Platelet Volume 10.5 fL (7.4-10.4); Monocytes # 0.6 10^3/uL (0.2-0.9); Monocytes % 5.8 %; Neutrophils # 8.09 10^3/uL (1.8-7.7); Neutrophils % 77.2 %; Nucleated Red Blood Cells % 0 %; Platelet Count 357 10^3/cmm (157-399); Red Blood Count 2.86 10^6/uL (3.85-5.65); Red Cell Distribution Width 14.8 % (12.1-15.1); White Blood Count 10.48 10^3/uL (3.29-11.43)
--- NOTE | 2024-06-08 22:20 | PC.NURSE ---
Permission to speak with: Patient gave this nurse verbal consent to allow the sharing of information with Christiano Cheema.
[2024-06-09] VITALS (95 sets, daily range): BP systolic 129–170; BP diastolic 80–109; PULSE 90–112; RESP 7–23; TEMP 36.4–37.4; O2SAT 95–100; BMI 20.7
--- NOTE | 2024-06-09 03:12 | PC.NURSE ---
Hold carafate: Patient is NPO for morning EGD, PO carafate was ordered at 0345, Dr. Valera gave telephone orders to hold dose.
[2024-06-09 04:13] LABS: Basophils % 0.4 %; Eosinophils % 0.6 %; Hematocrit 23.1 % (37-53); Lymphocytes # 1.9 10^3/uL (0.8-4.8); Lymphocytes % 26.2 %; Mean Corpuscular HGB Conc 31.2 g/dL (30-55); Mean Corpuscular Hemoglobin 27.8 pg (27-33); Mean Corpuscular Volume 89.2 fl (82-101); Mean Platelet Volume 9.8 fL (7.4-10.4); Monocytes # 0.5 10^3/uL (0.2-0.9); Monocytes % 6.9 %; Neutrophils # 4.67 10^3/uL (1.8-7.7); Neutrophils % 65.8 %; Nucleated Red Blood Cells % 0 %; Platelet Count 325 10^3/cmm (157-399); Red Blood Count 2.59 10^6/uL (3.85-5.65); Red Cell Distribution Width 14.6 % (12.1-15.1)
[2024-06-09 04:32] LABS: Alanine Aminotransferase 10 U/L (0-41); Albumin Level 2.5 g/dL (3.5-5.2); Alkaline Phosphatase 96 U/L (40-130); Anion Gap 8.6 (5-19); Aspartate Amino Transferase 10 U/L (0-40); Blood Urea Nitrogen 23 mg/dL (6-20); Calcium 7.1 mg/dL (8.5-10.5); Carbon Dioxide 26 mmol/L (22-29); Chloride 106 mmol/L (98-107); Creatinine Clr Calc Pharmacy 155.1508; Globulin 1.6 g/dL (1.3-4.6); Glomerular Filtration Rate 135.3 mL/min (90-130); Glucose 164 mg/dL (65-115); Magnesium 1.8 mg/dL (1.7-2.3); Osmolality Calculated 291 mOsm/kg (285-295); Phosphorus 2.2 mg/dL (2.5-4.5); Potassium 3.6 mmol/L (3.5-5.1); Sodium 137 mmol/L (136-145); Total Bilirubin 0.3 mg/dL (0.15-1.2); Total Protein 4.1 g/dL (6.6-8.7)
[2024-06-09] MEDS: sodium chloride 0.9% 1,000 ML 100 ML IV ×2 (06:27→17:46)
[2024-06-09 07:05] LABS: Glucose Point of Care 193 mg/dL (70-110)
[2024-06-09] MEDS: insulin lispro 100 unit/1 mL SUBCUT ×3 (08:32→20:39)
[2024-06-09] MEDS: piperacillin-tazobactam 3.375 GM in sodium chloride 0.9% (plus) 50 ML IV ×2 (08:32→15:15)
[2024-06-09] MEDS: sucralfate 1 gm/10 mL Oral Liq UDC PO ×3 (08:34→22:05)
[2024-06-09] MEDS: sodium chloride 0.9% 500 ML 999 ML IV (10:17)
[2024-06-09] MEDS: pantoprazole 40 mg SDV IVP ×2 (10:18→22:04)
--- NOTE | 2024-06-09 10:24 | PC.NURSE ---
Notified Dr. Cr of increasing bloody stools. Received order for 500mL bolus, and another unit of blood on hold, see MAR and TAR.
[2024-06-09 11:29] LABS: Glucose Point of Care 171 mg/dL (70-110)
--- NOTE | 2024-06-09 11:46 | ANES.PREANE2 ---
Pre-Anesthetic Assessment Height/Weight: Height 1.78 m Weight 65.5 kg Temp Pulse Resp BP Pulse Ox O2 Del Method 98.6 F 95 16 169/102 99 Room Air 06/09/24 11:09 06/09/24 11:09 06/09/24 11:09 06/09/24 11:09 06/09/24 11:09 06/09/24 09:04 Operation Date: 06/09/24 12:25 Proposed Procedures p EGD(Not Applicable) - Amaury Campos DO Familial anesthetic complications: None Was Beta Skip taken within 24 hours: N/A Was Clonidine taken within 24 hours: N/A Last intake: > 8hrs Social Tobacco and No alcohol meth abuse Exam alert, oriented x 3, clear to auscultation bilaterally and regular rate & rhythm Airway Mallampati: Class I Dentition: full Metabolic Diabetes Mellitus Anesthetic Plan ASA status: 4 Anesthesia: MAC Risk of > 500 ml blood loss (7ml/kg in children): No Medications/Allergies Home Medications Medication Instructions Recorded Confirmed Last Taken Type blood-glucose meter (OneTouch #1 ea 04/02/22 06/08/24 Unknown Rx Ultra2 Meter kit) blood sugar diagnostic #300 ea 05/12/22 06/08/24 Unknown Rx insulin aspart U-100 100 unit/mL 10 unit (0.1 mL) SUBCUT TID #15 mL 02/10/24 06/08/24 05/28/24 Rx (3 mL) subcutaneous pen (Novolog FlexPen U-100 Insulin aspart) insulin detemir U-100 100 unit/mL 30 unit (0.3 mL) SUBCUT QPM #15 mL 02/10/24 06/08/24 05/27/24 Rx (3 mL) subcutaneous pen (Levemir FlexPen) aspirin 81 mg tablet,delayed 81 mg PO BID Blood Clot prevention 05/31/24 06/08/24 Unknown Rx release postop 14 days #28 tabs cefdinir 300 mg capsule 300 mg PO BID 10 days #20 caps 05/31/24 06/08/24 Unknown Rx doxycycline hyclate 100 mg capsule 100 mg PO BID 10 days #20 caps 05/31/24 06/08/24 Unknown Rx loperamide 2 mg capsule 2 mg PO QID PRN Diarrhea 30 days 05/31/24 06/08/24 Unknown Rx #30 caps hydrocodone 5 mg-acetaminophen 325 1 tab PO Q6H PRN Pain 06/08/24 06/08/24 Unknown History mg tablet ondansetron 4 mg disintegrating 4 mg PO Q8H PRN Nausea And Vomiting 06/08/24 06/08/24 Unknown History tablet Allergies Allergy/AdvReac Type Severity Reaction Status Date / Time No Known Allergies Allergy Verified 05/11/24 09:19 Current Medications Generic Name Dose Route Start Last Admin Trade Name Freq PRN Reason Stop Dose Admin Piperacillin Sod/Tazobactam 50 mls @ 12.5 mls/hr 06/07/24 16:06 06/09/24 08:32 Sod 3.375 gm/ Sodium Chloride IV 12.5 mls/hr Q8H JAMES Administration Protocol Sodium Chloride 1,000 mls @ 100 mls/hr 06/08/24 05:00 06/09/24 06:27 Sodium Chloride 0.9% IV 100 mls/hr .Q10H JAMES Administration Vancomycin HCl 1,000 mg/ 250 mls @ 250 mls/hr 06/08/24 11:30 06/09/24 01:41 Sodium Chloride IV Infused Q12H JAMES Infusion Insulin Glargine 15 unit 06/08/24 21:00 06/08/24 20:22 Insulin Glargine 100 Units/1 Ml SUBCUT 15 unit BEDTIME JAMES Administration Insulin Human Lispro 0 unit 06/08/24 08:00 06/09/24 08:32 Insulin Lispro 100 Unit/1 Ml SUBCUT 6 unit WM&BEDTIME JAMES Administration Protocol Pantoprazole Sodium 40 mg 06/08/24 10:45 06/09/24 10:18 Pantoprazole 40 Mg Sdv IVP 40 mg Q12H JAMES Administration Sucralfate 1 gm 06/08/24 09:45 06/09/24 08:34 Sucralfate 1 Gm/10 Ml Oral Liq Udc PO 1 gm Q6H JAMES Administration PFSH Anesthesia Medical History DKA (diabetic ketoacidosis) Metabolic acidosis Acute kidney injury DKA, type 1 Nicotine dependence, cigarettes, uncomplicated Hypokalemia Polysubstance abuse Type 1 diabetes mellitus, uncontrolled DKA (diabetic ketoacidosis) History of thyroid nodule right complex nodule, FNA showed benign 03/2022 Transaminitis Hypertension Hyperthyroidism subclinical Amphetamine abuse Long-term insulin use Diabetes type 1, uncontrolled History of DKA Surgical History History of tonsillectomy Family History Other Family history unknown Social History Smoking and tobacco/nicotine status: current every day tobacco/nicotine user cigarettes Packs smoked per day: 1 Alcohol intake: former Substance/Drug Use: current Data Anesthesia 06/09/24 03:54 06/09/24 03:54 Short CBC 06/07/24 06/08/24 06/08/24 Range/Units 13:35 04:00 09:55 WBC 35.58 H* 16.64 H 14.55 H (3.29-11.43) 10^3/uL Hgb 12.50 9.60 L 8.70 L (11.27-16.99) g/dL Hct 44.8 30.4 L D 27.3 L (37-53) % MCV 98.0 86.6 D 86.9 (82-101) fl Plt Count 725 H 448 H D 386 (157-399) 10^3/cmm Neut % (Auto) 88.0 80.0 83.6 % Neut # (Auto) 31.30 H 13.32 H 12.18 H (1.8-7.7) 10^3/uL 06/08/24 06/08/24 06/09/24 Range/Units 14:02 20:30 03:54 WBC 13.30 H 10.48 7.10 (3.29-11.43) 10^3/uL Hgb 8.30 L 7.90 L 7.20 L (11.27-16.99) g/dL Hct 26.9 L 25.1 L 23.1 L (37-53) % MCV 88.5 87.8 89.2 (82-101) fl Plt Count 337 357 325 (157-399) 10^3/cmm Neut % (Auto) 82.2 77.2 65.8 % Neut # (Auto) 10.93 H 8.09 H 4.67 (1.8-7.7) 10^3/uL BMP 06/07/24 06/07/24 06/07/24 13:35 15:30 17:03 Sodium 120 L 134 L D 138 Potassium 8.4 H* 5.1 4.4 Chloride 79 L 95 L 100 Carbon Dioxide 2 L* 5 L* 10 L BUN 54 H 48 H 46 H Creatinine 2.8 H 2.3 H 2.1 H Glucose 1212 H* 802 H* 532 H* Calcium 8.0 L 8.3 L 06/07/24 06/07/24 06/08/24 17:03 22:10 02:10 Sodium 141 140 Potassium 3.8 4.1 Chloride 108 H 107 Carbon Dioxide 20 L 23 BUN 34 H 32 H Creatinine 1.2 1.1 Glucose Cancelled 117 H 189 H Calcium 8.6 7.8 L 7.4 L 06/08/24 06/09/24 04:00 03:54 Sodium 140 137 Potassium 4.0 3.6 Chloride 107 106 Carbon Dioxide 23 26 BUN 31 H 23 H Creatinine 1.1 0.7 Glucose 161 H 164 H Calcium 7.7 L 7.1 L Cardiac Enzymes 06/07/24 06/07/24 06/07/24 Range/Units 15:30 17:03 22:10 Troponin T Baseline 68 H (0-15) ng/L Troponin T 120 Minute 68.96 H (0-15) ng/L Delta Troponin T 0.96 (0-10) ABS# Troponin T Hi Sens 6Hr 60.56 H (0-15) ng/L Troponin T Hi Sens 6Hr Delta -7.44 L (0-12) ng/L NT-Pro-B Natriuret Pep 686 H (0-125) pg/mL Liver Function 06/07/24 06/08/24 06/09/24 Range/Units 13:35 04:00 03:54 Total Bilirubin 0.2 0.2 0.3 (0.15-1.2) mg/dL AST 10 9 10 (0-40) U/L ALT 24 14 10 (0-41) U/L Alkaline Phosphatase 196 H 117 96 (40-130) U/L Albumin 3.8 2.9 L 2.5 L (3.5-5.2) g/dL Urine 06/07/24 Range/Units 18:28 Urine Color Yellow (Yellow) Urine Appearance Clear (CLEAR) Urine pH 5.0 (5-7) Ur Specific [place] 1.016 (1.005-1.030) Urine Protein Negative (Negative) Urine Glucose (UA) 3+ H (Normal) Urine Ketones 3+ H (Negative) Urine Nitrate Negative (Negative) Urine Bilirubin Negative (Negative) Ur Leukocyte Esterase Negative (Negative) Urine RBC 0-2 (0-2) /hpf Urine WBC 0-5 (0-5) /hpf Blood Bank 06/09/24 08:30 Blood Type O Positive Rho(D) Type Rh positive Antibody Screen Negative COVID Results 06/07/24 14:50 Coronavirus 229E (PCR) Not detected SARS-CoV-2 (PCR) Not detected Coags 06/07/24 06/07/24 06/08/24 13:35 15:30 09:55 ESR 25 H PT 15.80 H 15.70 H INR 1.22 H 1.21 H C-Reactive Protein 5.3 H ABG 06/07/24 13:22 Specimen Type Arterial Sample Site Brachial, right ABG pH 6.96 L* ABG pCO2 7.0 L* ABG pO2 149.0 H ABG PO2/FiO2 Ratio 709 ABG HCO3 1.6 L ABG O2 Saturation 98.4 ABG Base Excess -28.4 L A-a O2 Gradient Not Reportable O2 Delivery Device Room air FiO2 21.0 Microbiology 06/07/24 14:34 Blood Culture - Preliminary Blood NEGATIVE TO DATE 06/07/24 14:35 Blood Culture - Preliminary Blood NEGATIVE TO DATE 06/08/24 09:45 Occult Blood (FIT) - Final Stool - Stool Aspirate Cardiac Studies: Echocardiogram 01/13/24 Sestamibi Stress Test (Cardiology) 01/13/24
--- NOTE | 2024-06-09 12:40 | P.PN_ITS ---
Vitals/I&O/Wt Last Vital Signs Temp 98.2 F 06/09/24 12:00 Pulse 101 H 06/09/24 12:00 Resp 16 06/09/24 12:00 BP 150/105 06/09/24 12:00 Pulse Ox 100 06/09/24 12:00 O2 Del Method Room Air 06/09/24 12:00 06/08/24 06/09/24 06/09/24 22:59 06:59 14:59 Intake Total 1996.667 / 2896.667 783.333 / 3680.000 850 / 850 Output Total 1100 / 1100 1000 / 2100 Balance 896.667 / 1796.667 -216.667 / 1580.000 850 / 850 Weight last 48 hrs Weight 144 lb 6.444 oz Weight 139 lb 15.896 oz Weight 142 lb Weight 142 lb Weight 150 lb Data 06/09/24 03:54 06/09/24 03:54 Micro: Microbiology 06/07/24 14:34 Blood Culture - Preliminary Blood NEGATIVE TO DATE 06/07/24 14:35 Blood Culture - Preliminary Blood NEGATIVE TO DATE 06/08/24 09:45 Occult Blood (FIT) - Final Stool - Stool Aspirate A&P Assessment and plan (1) GI bleed: (2) Acute blood loss anemia: Plan EGD The risks and benefits of the procedure, including bleeding, infection, intestinal perforation requiring surgery, missed lesion were explained to the patient. The patient is understanding of the risks and wishes to proceed. Medical management per hospitalist Attestations 2 Medical Necessity Statement*: Per primary Coding Level of Care Code Acute Code for Chg Fwd Diagnoses GI bleed K92.2 Acute blood loss anemia D62
[2024-06-09] MEDS: EPINEPHrine 1 mg/mL INJ XX (13:01)
--- NOTE | 2024-06-09 13:19 | ANE.PACU2 ---
Inpatient post-anesthesia follow up: Airway intact: Yes Vital signs: Temperature 98.2 F Pulse Rate 101 Respiratory Rate 16 Blood Pressure 150/105 Pulse Oximetry 100 Oxygen Delivery Me thod [ Room Air Current Rate & Del rolan] Oxygen Delivery Me thod Room Air Oxygen Flow Rate Fraction of Inspir ed Oxygen Hydration adequate: Yes Nausea and vomiting: No Pain level: 1 Mental status: Baseline
--- NOTE | 2024-06-09 13:27 | PC.NURSE ---
Patient arrived back from GI procedure at [id number]
[2024-06-09 13:59] LABS: Hematocrit 25.8 % (37-53)
--- NOTE | 2024-06-09 15:49 | P.PN_ITS ---
Subjective 2 Subjective: Patient was seen this morning he is alert oriented x 3, following all commands, denying any fevers, chills, no nausea, no vomiting, continues to have black tarry stools, now with blood with clots in it, hemodynamically he is stable, but is tachycardic heart rates in the 120s, sinus, hemoglobin down to 7.2 will give him a unit of blood, plan on EGD this morning, denies any bloody vomit, Vitals/I&O/Wt Last Vital Signs Temp 99.2 F 06/09/24 15:45 Pulse 99 06/09/24 14:45 Resp 23 H 06/09/24 14:45 BP 156/104 06/09/24 14:45 Pulse Ox 96 06/09/24 14:45 O2 Del Method Room Air 06/09/24 12:00 06/09/24 06/09/24 06/09/24 06:59 14:59 22:59 Intake Total 783.333 / 3680.000 900 / 900 Output Total 1000 / 2100 Balance -216.667 / 1580.000 900 / 900 Weight last 48 hrs Weight 65.5 kg Weight 63.5 kg Weight 64.41 kg Weight 64.41 kg Physical Exam 2 Const: COMMON NORMALS: no acute distress and patient oriented x3 Resp: COMMON NORMALS: normal respiratory effort, No retractions, No use of accessory muscles and clear to auscultation bilaterally AUSCULTATION: clear to auscultation bilaterally Cardio: COMMON NORMALS: regular rate, regular rhythm, S1 normal heart sound present and S2 normal heart sound present RATE: regular rate RHYTHM: r egular rhythm HEART SOUNDS: S1 normal heart sound present and S2 normal heart sound present GI: COMMON NORMALS: Normal to inspection, nondistended, normoactive bowel sounds present and non-tender Extremity: COMMON NORMALS: no pedal edema Neuro: COMMON NORMALS: patient oriented x3 Psych: COMMON NORMALS: mental status grossly normal Data 06/09/24 13:54 06/09/24 03:54 Micro: Microbiology 06/07/24 14:34 Blood Culture - Preliminary Blood NEGATIVE TO DATE 06/07/24 14:35 Blood Culture - Preliminary Blood NEGATIVE TO DATE A&P Assessment and plan (1) DKA (diabetic ketoacidosis): (2) Prepatellar abscess: (3) Lower extremity cellulitis: (4) Prepatellar bursitis of left knee: (5) Acute renal failure: (6) Lactic acidosis: (7) Sepsis: (8) GI bleed: (9) Acute anemia: Plan Diabetic ketoacidosis -Anion gap closed, transitioned off insulin drip ?PLAN -Continue Lantus 30 units at bedtime -Continue insulin sliding scale -Monitor blood sugar closely -Neurochecks -Aspiration precautions -Monitor mentation closely Lactic acidosis, resolved Sepsis -Patient recently left AGAINST MEDICAL ADVICE -Was admitted for left lower extremity cellulitis, concern for left knee prepatellar abscess status post incision and drainage, with bursectomy -Was found to have subcutaneous tissue abscess, purulent fluid, no deep extension in his left knee joint roughly 5 x 4 x 0.5 cm, cultures growing Staph aureus -Left AGAINST MEDICAL ADVICE, was discharged with p.o. antibiotics -Surgical cultures growing Staph aureus -Blood cultures within normal limits -For now continue broad-spectrum antibiotic therapy vancomycin, Zosyn -Follow repeat blood cultures -On examination, left knee, sutures are in place, site is erythematous, slightly swollen, slightly warm, monitor closely -Left knee MRI MR/MR knee LT wo con* [id number] IMPRESSION: 1. MRI knee examination was performed without IV contrast. 2. Overall there has been a moderate improvement in the edema and cellulitis surrounding the LEFT knee. The previously described developing abscess in the infrapatellar subcu and soft tissue is improving. 3. Decrease in size of the joint effusion. 4. No marrow edema. -Dr. Ha consulted Acute renal failure, resolving Hyperkalemia -Resolved Increased anion gap metabolic acidosis, lactic acidosis, acute renal failure -Resolved GI bleed, with acute anemia -Was on aspirin for surgery as above as outpatient -Hemoccult positive stools, black tarry stool -Evidence of iron deficiency anemia ferritin 76, iron 30 -Hemoglobin down to 7.2 -No hemodynamic compromise but does have sinus tachycardia -For now continue Protonix, Carafate -Clear liquids -Her hemodynamics closely -Lovenox for DVT prophylaxis has been discontinued -General Surgery has been consulted for EGD -n p.o. -Plan on EGD today Full code DVT prophylaxis SCDs Status stable, prognosis guarded Attestations 2 Medical Necessity Statement*: plan today transfuse 1 unit PRBC, EGD, monitor hemoglobin every 4 hours, continue IV antibiotics for history of left knee infection, monitor blood sugars closely, Lantus was decreased to 50 units at bedtime, as patient was n.p.o. over midnight continue to monitor blood sugars closely Patient requires hospitalization for GI bleed, acute anemia requiring EGD, blood transfusion, knee joint infection requiring IV antibiotics, Diagnoses DKA (diabetic ketoacidosis) E11.10 Prepatellar abscess L02.419 Lower extremity cellulitis L03.119 Prepatellar bursitis of left knee M70.42 Acute renal failure N17.9 Lactic acidosis E87.2 Sepsis A41.9 GI bleed K92.2 Acute anemia D64.9
[2024-06-09 17:00] LABS: Glucose Point of Care 217 mg/dL (70-110)
[2024-06-09 18:15] LABS: Hematocrit 26.3 % (37-53)
[2024-06-09 20:21] LABS: Glucose Point of Care 261 mg/dL (70-110)
[2024-06-09] MEDS: insulin glargine 100 units/1 mL 15 UNIT SUBCUT (20:40)
[2024-06-09 22:50] LABS: Hematocrit 22.2 % (37-53)
[2024-06-09 23:49] LABS: Vancomycin Trough < 4.0 ug/mL (10-15)
[2024-06-10] VITALS (109 sets, daily range): BP systolic 106–163; BP diastolic 66–121; PULSE 82–116; RESP 8–26; TEMP 36.5–37; O2SAT 84–100
[2024-06-10] MEDS: vancomycin 1,000 MG in sodium chloride 0.9% 250 ML 250 MG IV (00:36)
[2024-06-10] MEDS: piperacillin-tazobactam 3.375 GM in sodium chloride 0.9% (plus) 50 ML IV ×2 (00:37→07:49)
--- NOTE | 2024-06-10 01:39 | PC.NURSE ---
Spoke with Dr. Valera regarding 2200 H&H results and hgb drop. New order received for one unit PRBC. Following discussed vanc trough level (<4) with telepharmacy and made aware that previous dose had been non-admin. Pharmacist changed time for vanc, instructed to give same dose, and draw trough 30 min before 4th dose.
[2024-06-10] MEDS: sucralfate 1 gm/10 mL Oral Liq UDC PO ×4 (03:48→21:02)
[2024-06-10 05:13] LABS: Basophils % 0.7 %; Eosinophils # 0.1 10^3/uL (0.0-0.8); Eosinophils % 1.1 %; Hematocrit 26.9 % (37-53); Lymphocytes # 1.8 10^3/uL (0.8-4.8); Lymphocytes % 33.6 %; Mean Corpuscular HGB Conc 32.3 g/dL (30-55); Mean Corpuscular Hemoglobin 28.2 pg (27-33); Mean Corpuscular Volume 87.3 fl (82-101); Mean Platelet Volume 9.8 fL (7.4-10.4); Monocytes # 0.4 10^3/uL (0.2-0.9); Monocytes % 7.6 %; Neutrophils # 3.07 10^3/uL (1.8-7.7); Neutrophils % 56.6 %; Nucleated Red Blood Cells % 0 %; Platelet Count 228 10^3/cmm (157-399); Red Blood Count 3.08 10^6/uL (3.85-5.65); Red Cell Distribution Width 13.9 % (12.1-15.1); White Blood Count 5.42 10^3/uL (3.29-11.43)
[2024-06-10 05:31] LABS: Alanine Aminotransferase 10 U/L (0-41); Albumin Level 2.5 g/dL (3.5-5.2); Alkaline Phosphatase 84 U/L (40-130); Anion Gap 8.5 (5-19); Aspartate Amino Transferase 11 U/L (0-40); Blood Urea Nitrogen 11 mg/dL (6-20); Calcium 7.2 mg/dL (8.5-10.5); Carbon Dioxide 27 mmol/L (22-29); Chloride 104 mmol/L (98-107); Creatinine Clr Calc Pharmacy 222.8611; Globulin 1.4 g/dL (1.3-4.6); Glomerular Filtration Rate 199.5 mL/min (90-130); Glucose 100 mg/dL (65-115); Magnesium 1.7 mg/dL (1.7-2.3); Osmolality Calculated 281 mOsm/kg (285-295); Phosphorus 2.9 mg/dL (2.5-4.5); Potassium 3.5 mmol/L (3.5-5.1); Sodium 136 mmol/L (136-145); Total Bilirubin 0.4 mg/dL (0.15-1.2); Total Protein 3.9 g/dL (6.6-8.7)
[2024-06-10 07:20] LABS: Glucose Point of Care 107 mg/dL (70-110)
[2024-06-10] MEDS: sodium chloride 0.9% 1,000 ML 100 ML IV ×2 (07:48→10:37)
[2024-06-10 08:10] LABS: Hematocrit 27.5 % (37-53)
--- NOTE | 2024-06-10 08:27 | PHA.VACGOAL ---
Vancomycin Goal - Goal Vancomycin Goal:: 10-15 mg/L Vancomycin Indication:: Other - Therapy Current therapy:: Pip/Tazo Day of therpy:: Day [3]of [] Actual body weight (kg): 149 lb 14.629 oz [place] body weight: 73 kg Dosing weight (kg): 68 kg - Data Labs: WBC 5.42 10^3/uL (3.29-11.43) 06/10/24 03:00 RBC 3.08 10^6/uL (3.85-5.65) L 06/10/24 03:00 Hgb 9.00 g/dL (11.27-16.99) L 06/10/24 08:00 Hct 27.5 % (37-53) L 06/10/24 08:00 MCV 87.3 fl (82-101) 06/10/24 03:00 MCH 28.2 pg (27-33) 06/10/24 03:00 MCHC 32.3 g/dL (30-55) 06/10/24 03:00 RDW 13.9 % (12.1-15.1) 06/10/24 03:00 Sodium 136 mmol/L (136-145) 06/10/24 03:00 Potassium 3.5 mmol/L (3.5-5.1) 06/10/24 03:00 Chloride 104 mmol/L (98-107) 06/10/24 03:00 Carbon Dioxide 27 mmol/L (22-29) 06/10/24 03:00 Anion Gap 8.5 (5-19) 06/10/24 03:00 BUN 11 mg/dL (6-20) 06/10/24 03:00 Creatinine 0.5 mg/dL (0.7-1.2) L 06/10/24 03:00 GFR Calculation 199.5 mL/min (90-130) H 06/10/24 03:00 Laboratory Tests 06/09/24 22:39 Vancomycin Trough < 4.0 L Last dialysis session:: N/A Treatment plan:: change Regimen:: ADJUSTING DOSE TO 1500 MG Q12H DUE TO INCREASE IN RENAL FUNCTION Follow up:: WILL MONITOR RENAL FUNCTION WITH TROUGH ON 06/10
[2024-06-10] MEDS: pantoprazole 40 mg SDV IVP ×2 (09:49→23:31)
--- NOTE | 2024-06-10 10:44 | PC.NURSE ---
patient appears to be sleeping snoring noted
--- NOTE | 2024-06-10 11:08 | PM.CONSULT ---
Providers/Reason For Consult Consulting Physician/Specialty*: Beatrice Chacon MD / Infectious Disease Reason for Consult*: Prepatellar abscess MRSA Requesting Physician: Malcolm Cr MD Attending Physician: Malcolm Cr MD Primary Care Provider: Adi Castellon MD History of Present Illness History of Present Illness Jean Miller is a 29 year old male With a history of Drug abuse (denies IVDU, uses meth) type 1 diabetes mellitus, uncontrolled, noncompliant with treatment with recurrent admissions here for DKA. Patient was recently admitted to the hospital between May 29 to May 31, 2024 at which time he had presented with swelling of the left knee. He stated that swelling had initially started as a pimple that progressed to being swelling of the entire joint. He was evaluated by orthopedics. Septic arthritis was ruled out. He was diagnosed with left knee septic prepatellar bursitis and abscess with cellulitis. Underwent treatment with IV antibiotics and also received I&D with bursectomy on May 30, 2024 with orthopedics. He was clinically improving thereafter, however elected to leave A on May 31. He was discharged with oral cefdinir and doxycycline. Cultures were pending at that time, had shown coagulase positive gram-positive cocci. Subsequently cultures were updated to reveal MSSA. Patient's compliance is in question. He returned to the hospital on June 07 for DKA for which she is being treated in the ICU. He had a white blood cell count of 35,000. MRI of the knee was performed to assess for any worsening of infection, this showed that there was been moderate improvement in the edema and cellulitis. The infrapatellar subcutaneous abscess was also improving. There was decrease in size of the joint effusion. There was no marrow edema. On external exam swelling is much improved compared to previously. He was started on piperacillin/tazobactam and IV vancomycin. his hospital course has been complicated by development of GI bleed for which she has undergone EGD which has shown bleeding esophagitis. Currently clinically improving. Review of Systems General: Reports: 10 or more systems reviewed and unremarkable except in HPI and below Const: Denies: fever(s), chills or body aches Eyes: Denies: change in vision, blurry vision or photophobia ENMT: Reports: hoarseness; Denies: throat pain, enlarged tonsils, odynophagia or nasal congestion Card: Denies: chest pain, palpitations, irregular heart rhythm, edema, swelling of feet/ankles, lightheadedness, pre-syncope, dyspnea on exertion or orthopnea Resp: Denies: dyspnea, productive cough, non-productive cough, wheezing, stridor, pain on inspiration, change in phlegm color, hemoptysis or chest congestion GI: Denies: abdominal pain, nausea, vomiting, hematemesis, coffee ground emesis, dysphagia, heartburn, diarrhea, constipation, GI cramping, change in stool character, hematochezia or melena : Denies: flank pain, dysuria, urinary frequency, urinary urgency, urinary hesitancy or hematuria Musc: Denies: neck pain, back pain, extremity pain, joint swelling, joint warmth or deformity Neuro: Denies: headache(s), numbness in extremities, weakness in extremities, sensory changes, difficulty walking, frequent falls, dizziness, vertigo, behavioral changes, Slurred speech present or seizure-like activity Psych: Denies: anxiety, depression, suicidal ideation or homicidal ideation Endo: Denies: polyuria, polydipsia, tired all the time, cold intolerance or hot flashes Basim/Lymph: Denies: easy bruising or easy bleeding Medications/Allergies Home Medications Medication Instructions Recorded Confirmed Last Taken Type blood-glucose meter (OneTouch #1 ea 04/02/22 06/08/24 Unknown Rx Ultra2 Meter kit) blood sugar diagnostic #300 ea 05/12/22 06/08/24 Unknown Rx insulin aspart U-100 100 unit/mL 10 unit (0.1 mL) SUBCUT TID #15 mL 02/10/24 06/08/24 05/28/24 Rx (3 mL) subcutaneous pen (Novolog FlexPen U-100 Insulin aspart) insulin detemir U-100 100 unit/mL 30 unit (0.3 mL) SUBCUT QPM #15 mL 02/10/24 06/08/24 05/27/24 Rx (3 mL) subcutaneous pen (Levemir FlexPen) aspirin 81 mg tablet,delayed 81 mg PO BID Blood Clot prevention 05/31/24 06/08/24 Unknown Rx release postop 14 days #28 tabs cefdinir 300 mg capsule 300 mg PO BID 10 days #20 caps 05/31/24 06/08/24 Unknown Rx doxycycline hyclate 100 mg capsule 100 mg PO BID 10 days #20 caps 05/31/24 06/08/24 Unknown Rx loperamide 2 mg capsule 2 mg PO QID PRN Diarrhea 30 days 05/31/24 06/08/24 Unknown Rx #30 caps hydrocodone 5 mg-acetaminophen 325 1 tab PO Q6H PRN Pain 06/08/24 06/08/24 Unknown History mg tablet ondansetron 4 mg disintegrating 4 mg PO Q8H PRN Nausea And Vomiting 06/08/24 06/08/24 Unknown History tablet Allergies Allergy/AdvReac Type Severity Reaction Status Date / Time No Known Allergies Allergy Verified 05/11/24 09:19 Current Medications Generic Name Dose Route Start Last Admin Trade Name Freq PRN Reason Stop Dose Admin Piperacillin Sod/Tazobactam 50 mls @ 12.5 mls/hr 06/07/24 16:06 06/10/24 07:49 Sod 3.375 gm/ Sodium Chloride IV 12.5 mls/hr Q8H JAMES Administration Protocol Sodium Chloride 1,000 mls @ 100 mls/hr 06/08/24 05:00 06/10/24 10:37 Sodium Chloride 0.9% IV 100 mls/hr .Q10H JAMES Administration Sodium Chloride 1,000 mls @ 30 mls/hr 06/09/24 12:15 06/09/24 13:27 Sodium Chloride 0.9% IV 06/10/24 12:14 Not Given .Q24H JAMES Insulin Glargine 15 unit 06/08/24 21:00 06/09/24 20:40 Insulin Glargine 100 Units/1 Ml SUBCUT 15 unit BEDTIME JAMES Administration Insulin Human Lispro 0 unit 06/08/24 08:00 06/10/24 07:38 Insulin Lispro 100 Unit/1 Ml SUBCUT Not Given WM&BEDTIME JAMES Protocol Pantoprazole Sodium 40 mg 06/08/24 10:45 06/10/24 09:49 Pantoprazole 40 Mg Sdv IVP 40 mg Q12H JAMES Administration Sucralfate 1 gm 06/08/24 09:45 06/10/24 09:21 Sucralfate 1 Gm/10 Ml Oral Liq Udc PO 1 gm Q6H JAMES Administration PFSH Acute PFSH: Medical History DKA (diabetic ketoacidosis) Metabolic acidosis Acute kidney injury DKA, type 1 Nicotine dependence, cigarettes, uncomplicated Hypokalemia Polysubstance abuse Type 1 diabetes mellitus, uncontrolled DKA (diabetic ketoacidosis) History of thyroid nodule right complex nodule, FNA showed benign 03/2022 Transaminitis Hypertension Hyperthyroidism subclinical Amphetamine abuse Long-term insulin use Diabetes type 1, uncontrolled History of DKA Surgical History History of tonsillectomy Family History Other Family history unknown Social History Smoking and tobacco/nicotine status: current every day tobacco/nicotine user cigarettes Packs smoked per day: 1 Alcohol intake: former Substance/Drug Use: current Vitals/I&O/Wt Last Vital Signs Temp 98.3 F 06/10/24 07:37 Pulse 91 06/10/24 11:05 Resp 12 06/10/24 08:00 BP 140/93 06/10/24 08:00 Pulse Ox 97 06/10/24 11:05 O2 Del Method Room Air 06/10/24 11:05 06/09/24 06/10/24 06/10/24 22:59 06:59 14:59 Intake Total 1650 / 2550 2130.000 / 4680.000 1601.667 / 1601.667 Output Total 1000 / 1000 Balance 650 / 1550 2130.000 / 3680.000 1601.667 / 1601.667 Weight last 48 hrs Weight 68 kg Weight 65.5 kg Physical Exam Narrative: General: No acute distress, AO x3 HEENT: PERRLA, pupils bilaterally equal and reactive, pallors not present Chest: Normal vesicular breath sounds, no added sounds, equal good air entry bilaterally CVS: S1-S2 regular, no murmurs, no tachycardia, no gallops, no rubs Abdomen: Soft, nontender, no organomegaly, bowel sounds present Neuro: No focal deficits, no facial deformity, AO x3, power 5/5 in all limbs EXT: left knee with sutures in place Data 06/11/24 04:28 06/11/24 04:28 Other Labs: [facility]: [id number] #: [id number] AGE/SX: 29/M ROOM: 261 RE05/29/[address]: Iftikhar Soriano MD : 1995 BED: 1 DIS: 05/31/24 FAX #: STATUS: DIS IN TLOC: Spec #: [id number] Ronny: 05/30/24 Status: COMP Req #: [id number] Recd: 05/30/24-[address]: Lauri Ha Src: Knee SpDesc: #1 Ordered: Absces Cult&GS Comments: Comment prepatellar bursal abscess left Procedure Result Verified Site Gram Stain Final 05/30/24-1140 Result FEW POLYMORPHONUCLEAR NEUTROPHILS NO ORGANISMS SEEN Abscess Culture Final 06/01/24-1154 Organism 1 Staphylococcus aureus Growth FEW DAY 2 S aureus M.I.C. RX --------- ------ * Ciprofloxacin <=1 S * Clindamycin <=0.5 R * Erythromycin >4 R * Gentamicin <=4 S * Levofloxacin <=1 S * Linezolid 2 S * Moxifloxacin <=0.5 S * Oxacillin 0.5 S * Penicillin >8 R * Rifampin <=1 S * Tetracycline <=4 S * Trimethoprim/Sulfamethoxazole <=0.5/9.5 S Vancomycin 2 S Daptomycin <=0.5 S Abscess Culture Preliminary (changed) 05/31/24-1136 Organism 1 Coag positive Staphylococcus Growth FEW DAY 1, RESULTS TO FOLLOW Other data: Radiology Impressions Knee X-Ray 06/07/24 13:47 IMPRESSION: No acute findings. Chest X-Ray 06/07/24 17:20 IMPRESSION: 1. Right arm PICC in satisfactory position. 2. No acute findings. Knee MRI 06/08/24 10:35 IMPRESSION: 1. MRI knee examination was performed without IV contrast. 2. Overall there has been a moderate improvement in the edema and cellulitis surrounding the LEFT knee. The previously described developing abscess in the infrapatellar subcu and soft tissue is improving. 3. Decrease in size of the joint effusion. 4. No marrow edema. Laboratory Results WBC 6.19 10^3/uL (3.29-11.43) 06/11/24 04: RBC 3.12 10^6/uL (3.85-5.65) L 06/11/24 04:28 Hgb 9.10 g/dL (11.27-16.99) L 06/11/24 04:28 Hct 27.2 % (37-53) L 06/11/24 04:28 MCV 87.2 fl (82-101) 06/11/24 04:28 MCH 29.2 pg (27-33) 06/11/24 04: MCHC 33.5 g/dL (30-55) 06/11/24 04: RDW 14.1 % (12.1-15.1) 06/11/24 04:28 Plt Count 248 10^3/cmm (157-399) 06/11/24 04:28 MPV 10.3 fL (7.4-10.4) 06/11/24 04:28 Neut % (Auto) 61.1 % 06/11/24 04:28 Lymph % (Auto) 28.4 % 06/11/24 04:28 [place] % (Auto) 7.3 % 06/11/24 04:28 Eos % (Auto) 1.8 % 06/11/24 04:28 Baso % (Auto) 0.8 % 06/11/24 04:28 Neut # (Auto) 3.78 10^3/uL (1.8-7.7) 06/11/24 04:28 Lymph # (Auto) 1.8 10^3/uL (0.8-4.8) 06/11/24 04:28 [place] # (Auto) 0.5 10^3/uL (0.2-0.9) 06/11/24 04:28 Eos # (Auto) 0.1 10^3/uL (0.0-0.8) 06/11/24 04:28 Baso # (Auto) 0.1 10^3/uL (0.0-0.1) 06/11/24 04:28 Nucleated RBC % (auto) 0 % 06/11/24 04:28 Nucleated RBCs # 0.0 /100WBC 06/11/24 04:28 ESR 25 mm/hr (0-10) H 06/07/24 13:35 PT 15.70 SECONDS (12.1-14.9) H 06/08/24 09:55 INR 1.21 (0.8-1.2) H 06/08/24 09:55 Specimen Type Arterial 06/07/24 13:22 Sample Site Brachial, right 06/07/24 13:22 ABG pH 6.96 (7.35-7.45) L* 06/07/24 13:22 ABG pCO2 7.0 mmHg (35-45) L* 06/07/24 13:22 ABG pO2 149.0 mmHg (80.0-100.0) H 06/07/24 13:22 ABG PO2/FiO2 Ratio 709 06/07/24 13:22 ABG HCO3 1.6 mmol/L (22-26) L 06/07/24 13:22 ABG O2 Saturation 98.4 06/07/24 13:22 ABG Base Excess -28.4 mmol/L (-2.0-2.0) L 06/07/24 13:22 [place] Test N/a 06/07/24 13:22 A-a O2 Gradient Not Reportable 06/07/24 13:22 Hematocrit 38.4 % (42-52) L 06/07/24 13:22 Hgb O2 Saturation 96.4 % (95-100) 06/07/24 13:22 Carboxyhemoglobin 0.6 %THgb (0.4-20.1) 06/07/24 13:22 Methemoglobin 1.4 % (0.4-1.5) 06/07/24 13:22 Total Hemoglobin 12.5 g/dL (14-18) L 06/07/24 13:22 Sodium 121.0 mmol/L (131-143) L 06/07/24 13:22 Potassium 7.6 mmol/L (3.5-5.0) H 06/07/24 13:22 Glucose > 1080.0 mg/dL (70-115) H 06/07/24 13:22 Ionized Calcium 1.2 mmol/L (1.1-1.4) 06/07/24 13:22 O2 Delivery Device Room air 06/07/24 13:22 FiO2 21.0 % 06/07/24 13:22 Water Pump Servicer ID [id number] 06/07/24 13:22 Sodium 141 mmol/L (136-145) 06/11/24 04:28 Potassium 3.7 mmol/L (3.5-5.1) 06/11/24 04:28 Chloride 107 mmol/L (98-107) 06/11/24 04:28 Carbon Dioxide 26 mmol/L (22-29) 06/11/24 04:28 Anion Gap 11.7 (5-19) 06/11/24 04:28 BUN 7 mg/dL (6-20) 06/11/24 04:28 Creatinine 0.6 mg/dL (0.7-1.2) L 06/11/24 04:28 GFR Calculation 161.6 mL/min (90-130) H 06/11/24 04:28 Glucose 119 mg/dL (65-115) H 06/11/24 04:28 POC Glucose 159 mg/dL (70-110) H 06/11/24 07:28 Estimat Average Glucose 275 06/07/24 13:35 Hemoglobin A1c 11.2 % (4.0-6.0) H 06/07/24 13:35 Calculated Osmolality 291 mOsm/kg (285-295) 06/11/24 04:28 Lactic Acid 5.0 mmol/L (0.5-2.2) H* 06/07/24 13:35 Lactic Acid (Sepsis) 2.2 mmol/L (0.5-2.2) 06/07/24 17:03 Calcium 7.5 mg/dL (8.5-10.5) L 06/11/24 04:28 Phosphorus 2.8 mg/dL (2.5-4.5) 06/11/24 04:28 Magnesium 1.7 mg/dL (1.7-2.3) 06/11/24 04:28 Iron 30 ug/dL (59-158) L 06/08/24 04:00 TIBC 234 mcg/dl 06/08/24 04:00 % Saturation 12.8 % (20-50) L 06/08/24 04:00 Unsat Iron Binding 204 ug/dL (112-347) 06/08/24 04:00 Ferritin 76 ng/mL (30-400) 06/08/24 04:00 Total Bilirubin 0.2 mg/dL (0.15-1.2) 06/11/24 04:28 AST 14 U/L (0-40) 06/11/24 04:28 ALT 10 U/L (0-41) 06/11/24 04:28 Alkaline Phosphatase 101 U/L (40-130) 06/11/24 04:28 Troponin T Baseline 68 ng/L (0-15) H 06/07/24 15:30 Troponin T 120 Minute 68.96 ng/L (0-15) H 06/07/24 17:03 Delta Troponin T 0.96 ABS# (0-10) 06/07/24 17:03 Troponin T Hi Sens 6Hr 60.56 ng/L (0-15) H 06/07/24 22:10 Troponin T Hi Sens 6Hr Delta -7.44 ng/L (0-12) L 06/07/24 22:10 C-Reactive Protein 5.3 mg/L (0.0-4.9) H 06/07/24 15:30 NT-Pro-B Natriuret Pep 686 pg/mL (0-125) H 06/07/24 15:30 Total Protein 4.1 g/dL (6.6-8.7) L 06/11/24 04:28 Albumin 2.6 g/dL (3.5-5.2) L 06/11/24 04:28 Globulin 1.5 g/dL (1.3-4.6) 06/11/24 04:28 Triglycerides 130 mg/dL (0-150) 06/07/24 17:03 Cholesterol 130 mg/dL (0-200) 06/07/24 17:03 LDL Cholesterol, Calc 42 mg/dL (50-129) L 06/07/24 17:03 HDL Cholesterol 62 mg/dL (60-100) 06/07/24 17:03 LDL/HDL Ratio 0.68 RATIO (0.00-3.22) 06/07/24 17:03 Cholesterol/HDL Ratio 2.10 mg/dL (1.0-5.00) 06/07/24 17:03 Lipase 7 U/L (13-60) L 06/07/24 13:35 Procalcitonin 0.46 ng/mL (0-0.5) 06/07/24 15:30 TSH 0.23 uIU/mL (0.27-4.20) L 06/07/24 17:03 Urine Color Yellow (Yellow) 06/07/24 18:28 Urine Appearance Clear (CLEAR) 06/07/24 18:28 Urine pH 5.0 (5-7) 06/07/24 18:28 Ur Specific [place] 1.016 (1.005-1.030) 06/07/24 18:28 Urine Protein Negative (Negative) 06/07/24 18:28 Urine Glucose (UA) 3+ (Normal) H 06/07/24 18:28 Urine Ketones 3+ (Negative) H 06/07/24 18:28 Urine Blood Negative (Negative) 06/07/24 18: Urine Nitrate Negative (Negative) 06/07/24 18: Urine Bilirubin Negative (Negative) 06/07/24 18:28 Urine Urobilinogen 0.2 mg/dL (Negative) 06/07/24 18:28 Ur Leukocyte Esterase Negative (Negative) 06/07/24 18:28 Urine RBC 0-2 /hpf (0-2) 06/07/24 18:28 Urine WBC 0-5 /hpf (0-5) 06/07/24 18:28 Ur Squamous Epith Cells 0-5 /hpf (0-5) 06/07/24 18:28 Amorphous Sediment Not Reportable 06/07/24 18:28 Urine Bacteria None seen /hpf (NONE) 06/07/24 18:28 Hyaline Casts 2.46 /lpf 06/07/24 18:28 Vancomycin Trough < 4.0 ug/mL (10-15) L 06/09/24 22:39 Urine Opiates Screen Negative ng/mL (Negative) 06/07/24 18:28 Ur Barbiturates Screen Negative ng/mL (Negative) 06/07/24 18:28 Ur Phencyclidine Scrn Negative ng/mL (Negative) 06/07/24 18:28 Ur Amphetamines Screen Positive ng/mL (Negative) H 06/07/24 18:28 U Benzodiazepines Scrn Negative ng/mL (Negative) 06/07/24 18:28 Urine Cocaine Screen Negative ng/mL (Negative) 06/07/24 18:28 U Marijuana (THC) Screen Negative ng/mL (Negative) 06/07/24 18:28 Serum Ketones Positive (Negative) H 06/07/24 13:35 Adenovirus (PCR) Not detected (NOT DETECT) 06/07/24 14:50 C. pneumoniae DNA (PCR) Not detected (NOT DETECT) 06/07/24 14:50 C. difficile (PCR) Negative (Negative) 06/08/24 09:45 Coronavirus 229E (PCR) Not detected (NOT DETECT) 06/07/24 14:50 Hepatitis A IgM Ab Non-reactive (Nonreactive) 06/07/24 15:30 Hep Bs Antigen Non-reactive (Nonreactive) 06/07/24 15:30 Hep B Core IgM Ab Non-reactive (Nonreactive) 06/07/24 15:30 Hepatitis C Antibody Non-reactive (Nonreactive) 06/07/24 15:30 HIV 1&2 Ab & HIV 1 Ag Non-reactive (Non-Reactiv) 06/07/24 15:30 HIV 1&2 Antibody Non-reactive (Non-Reactiv) 06/07/24 15:30 Human Metapneumovir PCR Not detected (NOT DETECT) 06/07/24 14:50 Influenza A (H1) PCR Not detected (NOT DETECT) 06/07/24 14:50 Influ A (H1/09) PCR Not detected (NOT DETECT) 06/07/24 14:50 Influenza A (H3) PCR Not detected (NOT DETECT) 06/07/24 14:50 Influenza Type A (PCR) Not detected (NOT DETECT) 06/07/24 14:50 Influenza Type B (PCR) Not detected (NOT DETECT) 06/07/24 14:50 M. pneumoniae (PCR) Not detected (NOT DETECT) 06/07/24 14:50 Parainfluenza 1 (PCR) Not detected (NOT DETECT) 06/07/24 14:50 Parainfluenza 2 (PCR) Not detected (NOT DETECT) 06/07/24 14:50 Parainfluenza 3 (PCR) Not detected (NOT DETECT) 06/07/24 14:50 Parainfluenza 4 (PCR) Not detected (NOT DETECT) 06/07/24 14:50 RSV Type A (PCR) Not detected (NOT DETECT) 06/07/24 14:50 RSV Type B (PCR) Not detected (NOT DETECT) 06/07/24 14:50 Entero/Rhino (PCR) Not detected (NOT DETECT) 06/07/24 14:50 SARS-CoV-2 (PCR) Not detected (NOT DETECT) 06/07/24 14:50 Blood Type O Positive 06/09/24 08:30 Rho(D) Type Rh positive 06/09/24 08:30 Antibody Screen Negative 06/09/24 08:30 Crossmatch See Detail 06/09/24 08:30 A&P Assessment and plan (1) Prepatellar abscess: MSSA prepatellar abscess recently s/p I&[place] 05[place] [id number], now improving MRI knee shows improving abscess and cellulitis compatible with clinical exam. D/c Zosyn, continue vancomycin for now , can narrow to ceftriaxone 1g iv every 24 At discharge, patient's compliance with oral abx is in question. Would ideally prefer to use highly bioavailable agents however currently unable to use doxycycline given discovery of bleeding esophagitis, doxycycline is likely to worsen that. Would not want to use linezolid given history of drug abuse as outpatient. isolate is sensitive to Bactrim, however hesitant to use given that patient had presented to the hospital with acute kidney injury with creatinine up to 2.8. Would prefer not to use a beta-lactam orally given poor bioavailability. IV cefazolin and ceftriaxone not currently an option given patient would need to be discharged with a PICC line which is not ideal given again history of drug use. Patient's U tox on this admission was positive for amphetamines. A potential option may be dalbavancin 1500 mg IV x 1 at discharge- will attempt to arrange with pharmacy. Consult Attestations Medical Necessity Statement: per admitting Coding Level of Care Code Acute Code for [facility] Fwd Diagnoses Prepatellar abscess L02.419
[2024-06-10 11:36] LABS: Glucose Point of Care 326 mg/dL (70-110)
[2024-06-10] MEDS: insulin lispro 100 unit/1 mL SUBCUT ×3 (11:44→21:02)
[2024-06-10] MEDS: vancomycin 1,500 MG/300 ML PIGGYBACK 200 MG IV ×2 (11:45→23:31)
[2024-06-10 11:56] LABS: Hematocrit 27.7 % (37-53)
--- NOTE | 2024-06-10 12:42 | P.PN_ITS ---
Subjective 2 Subjective: patient was seen this morning he has had black bowel movement over night, denies lightheadedness, no dizziness, no abdominal pain, has required another 1 unit prbc Vitals/I&O/Wt Last Vital Signs Temp 98.3 F 06/10/24 07:37 Pulse 91 06/10/24 11:05 Resp 12 06/10/24 08:00 BP 140/93 06/10/24 08:00 Pulse Ox 99 06/10/24 11:57 O2 Del Method Room Air 06/10/24 11:57 06/09/24 06/10/24 06/10/24 22:59 06:59 14:59 Intake Total 1650 / 2550 2130.000 / 4680.000 1651.667 / 1651.667 Output Total 1000 / 1000 Balance 650 / 1550 2130.000 / 3680.000 1651.667 / 1651.667 Weight last 48 hrs Weight 68 kg Weight 65.5 kg Physical Exam 2 Const: COMMON NORMALS: no acute distress and patient oriented x3 Resp: COMMON NORMALS: normal respiratory effort, No retractions, No use of accessory muscles and clear to auscultation bilaterally AUSCULTATION: clear to auscultation bilaterally Cardio: COMMON NORMALS: regular rate, regular rhythm, S1 normal heart sound present and S2 normal heart sound present RATE: regular rate RHYTHM: r egular rhythm HEART SOUNDS: S1 normal heart sound present and S2 normal heart sound present GI: COMMON NORMALS: Normal to inspection, nondistended, normoactive bowel sounds present and non-tender Extremity: COMMON NORMALS: no pedal edema Neuro: COMMON NORMALS: patient oriented x3 Psych: COMMON NORMALS: mental status grossly normal Data 06/10/24 11:45 06/10/24 03:00 A&P Assessment and plan (1) DKA (diabetic ketoacidosis): (2) Prepatellar abscess: (3) Lower extremity cellulitis: (4) Prepatellar bursitis of left knee: (5) Acute renal failure: (6) Lactic acidosis: (7) Sepsis: (8) GI bleed: (9) Acute anemia: Plan Diabetic ketoacidosis -Anion gap closed, transitioned off insulin drip ?PLAN -Continue Lantus 30 units at bedtime -Continue insulin sliding scale -Monitor blood sugar closely -Neurochecks -Aspiration precautions -Monitor mentation closely Lactic acidosis, resolved Sepsis -Patient recently left AGAINST MEDICAL ADVICE -Was admitted for left lower extremity cellulitis, concern for left knee prepatellar abscess status post incision and drainage, with bursectomy -Was found to have subcutaneous tissue abscess, purulent fluid, no deep extension in his left knee joint roughly 5 x 4 x 0.5 cm, cultures growing Staph aureus -Left AGAINST MEDICAL ADVICE, was discharged with p.o. antibiotics -Surgical cultures growing Staph aureus -Blood cultures within normal limits -For now continue broad-spectrum antibiotic therapy vancomycin, Zosyn -Follow repeat blood cultures, negative -On examination, left knee, sutures are in place, site is erythematous, slightly swollen, slightly warm, monitor closely -Left knee MRI MR/MR knee LT wo con* [id number] IMPRESSION: 1. MRI knee examination was performed without IV contrast. 2. Overall there has been a moderate improvement in the edema and cellulitis surrounding the LEFT knee. The previously described developing abscess in the infrapatellar subcu and soft tissue is improving. 3. Decrease in size of the joint effusion. 4. No marrow edema. -Dr. Ha consulted -Infectious disease consulted Acute renal failure, resolving Hyperkalemia -Resolved Increased anion gap metabolic acidosis, lactic acidosis, acute renal failure -Resolved GI bleed, with acute anemia -Was on aspirin for surgery as above as outpatient -Hemoccult positive stools, black tarry stool -Evidence of iron deficiency anemia ferritin 76, iron 30 -Hemoglobin down to 7.2 -No hemodynamic compromise but does have sinus tachycardia -For now continue Protonix, Carafate -EGD shows esoophageal polyp, esophagitis, gastric blood -adavance diet to diabetic diet -Her hemodynamics closely -Lovenox for DVT prophylaxis has been discontinued -s/p 2 units pRBC -monitor hgb q4hrs -monitor in ICU closely Full code DVT prophylaxis SCDs Status stable, prognosis guarded Attestations 2 Medical Necessity Statement*: patient requires hospitalization for GI bleed Diagnoses DKA (diabetic ketoacidosis) E11.10 Prepatellar abscess L02.419 Lower extremity cellulitis L03.119 Prepatellar bursitis of left knee M70.42 Acute renal failure N17.9 Lactic acidosis E87.2 Sepsis A41.9 GI bleed K92.2 Acute anemia D64.9
[2024-06-10 16:55] LABS: Glucose Point of Care 163 mg/dL (70-110)
[2024-06-10 18:15] LABS: Hematocrit 29.4 % (37-53)
[2024-06-10 20:55] LABS: Glucose Point of Care 301 mg/dL (70-110)
[2024-06-10] MEDS: insulin glargine 100 units/1 mL 30 UNIT SUBCUT (21:01)
[2024-06-11] VITALS (63 sets, daily range): BP systolic 121–150; BP diastolic 80–113; PULSE 82–110; RESP 7–136; TEMP 36.3–36.9; O2SAT 95–100
[2024-06-11 00:34] LABS: Hematocrit 26.7 % (37-53)
[2024-06-11] MEDS: sucralfate 1 gm/10 mL Oral Liq UDC PO ×4 (04:23→20:56)
[2024-06-11 04:38] LABS: Basophils # 0.1 10^3/uL (0.0-0.1); Basophils % 0.8 %; Eosinophils # 0.1 10^3/uL (0.0-0.8); Eosinophils % 1.8 %; Hematocrit 27.2 % (37-53); Lymphocytes # 1.8 10^3/uL (0.8-4.8); Lymphocytes % 28.4 %; Mean Corpuscular HGB Conc 33.5 g/dL (30-55); Mean Corpuscular Hemoglobin 29.2 pg (27-33); Mean Corpuscular Volume 87.2 fl (82-101); Mean Platelet Volume 10.3 fL (7.4-10.4); Monocytes # 0.5 10^3/uL (0.2-0.9); Monocytes % 7.3 %; Neutrophils # 3.78 10^3/uL (1.8-7.7); Neutrophils % 61.1 %; Nucleated Red Blood Cells % 0 %; Platelet Count 248 10^3/cmm (157-399); Red Blood Count 3.12 10^6/uL (3.85-5.65); Red Cell Distribution Width 14.1 % (12.1-15.1); White Blood Count 6.19 10^3/uL (3.29-11.43)
[2024-06-11 04:56] LABS: Alanine Aminotransferase 10 U/L (0-41); Albumin Level 2.6 g/dL (3.5-5.2); Alkaline Phosphatase 101 U/L (40-130); Anion Gap 11.7 (5-19); Aspartate Amino Transferase 14 U/L (0-40); Blood Urea Nitrogen 7 mg/dL (6-20); Calcium 7.5 mg/dL (8.5-10.5); Carbon Dioxide 26 mmol/L (22-29); Chloride 107 mmol/L (98-107); Creatinine Clr Calc Pharmacy 185.7176; Globulin 1.5 g/dL (1.3-4.6); Glomerular Filtration Rate 161.6 mL/min (90-130); Glucose 119 mg/dL (65-115); Magnesium 1.7 mg/dL (1.7-2.3); Osmolality Calculated 291 mOsm/kg (285-295); Phosphorus 2.8 mg/dL (2.5-4.5); Potassium 3.7 mmol/L (3.5-5.1); Sodium 141 mmol/L (136-145); Total Bilirubin 0.2 mg/dL (0.15-1.2); Total Protein 4.1 g/dL (6.6-8.7)
[2024-06-11 07:32] LABS: Glucose Point of Care 159 mg/dL (70-110)
[2024-06-11] MEDS: insulin lispro 100 unit/1 mL SUBCUT ×4 (08:33→20:56)
[2024-06-11] MEDS: pantoprazole 40 mg SDV IVP ×2 (10:17→22:32)
--- NOTE | 2024-06-11 12:31 | P.PN_ITS ---
Subjective 2 Subjective: Patient was seen this morning, alert oriented x 3, following all commands, he is quite withdrawn this morning, denies any complaints overnight, no reported bloody black stools, he got up to use the bathroom, Vitals/I&O/Wt Last Vital Signs Temp 98.1 F 06/11/24 08:15 Pulse 93 06/11/24 08:15 Resp 13 06/11/24 08:15 BP 135/98 06/11/24 08:15 Pulse Ox 98 06/11/24 08:15 O2 Del Method Room Air 06/11/24 08:15 06/10/24 06/11/24 06/11/24 22:59 06:59 14:59 Intake Total 960 / 4231.667 780 / 5011.667 240 / 240 Output Total 1200 / 2300 Balance -240 / 1931.667 780 / 2711.667 240 / 240 Weight last 48 hrs Weight 68.5 kg Weight 68 kg Physical Exam 2 Const: COMMON NORMALS: no acute distress and patient oriented x3 Resp: COMMON NORMALS: normal respiratory effort, No retractions, No use of accessory muscles and clear to auscultation bilaterally AUSCULTATION: clear to auscultation bilaterally Cardio: COMMON NORMALS: regular rate, regular rhythm, S1 normal heart sound present and S2 normal heart sound present RATE: regular rate RHYTHM: r egular rhythm HEART SOUNDS: S1 normal heart sound present and S2 normal heart sound present GI: COMMON NORMALS: Normal to inspection, nondistended, normoactive bowel sounds present and non-tender Extremity: COMMON NORMALS: no pedal edema Neuro: COMMON NORMALS: patient oriented x3 Psych: COMMON NORMALS: mental status grossly normal Data 06/11/24 04:28 06/11/24 04:28 A&P Assessment and plan (1) DKA (diabetic ketoacidosis): (2) Prepatellar abscess: (3) Lower extremity cellulitis: (4) Prepatellar bursitis of left knee: (5) Acute renal failure: (6) Lactic acidosis: (7) Sepsis: (8) GI bleed: (9) Acute anemia: Plan Diabetic ketoacidosis -Anion gap closed, transitioned off insulin drip ?PLAN -Continue Lantus 30 units at bedtime -Continue insulin sliding scale -Monitor blood sugar closely -Neurochecks -Aspiration precautions -Monitor mentation closely Lactic acidosis, resolved Sepsis -Patient recently left AGAINST MEDICAL ADVICE -Was admitted for left lower extremity cellulitis, concern for left knee prepatellar abscess status post incision and drainage, with bursectomy -Was found to have subcutaneous tissue abscess, purulent fluid, no deep extension in his left knee joint roughly 5 x 4 x 0.5 cm, cultures growing Staph aureus -Left AGAINST MEDICAL ADVICE, was discharged with p.o. antibiotics -Surgical cultures growing Staph aureus -Blood cultures within normal limits -For now continue broad-spectrum antibiotic therapy vancomycin, Zosyn -Follow repeat blood cultures, negative -On examination, left knee, sutures are in place, site is erythematous, slightly swollen, slightly warm, monitor closely -Left knee MRI MR/MR knee LT wo con* [id number] IMPRESSION: 1. MRI knee examination was performed without IV contrast. 2. Overall there has been a moderate improvement in the edema and cellulitis surrounding the LEFT knee. The previously described developing abscess in the infrapatellar subcu and soft tissue is improving. 3. Decrease in size of the joint effusion. 4. No marrow edema. -Dr. Ha consulted, medical management, will remove sutures today -Infectious disease consulted ? Continue vancomycin -Plan on discharging on dalbavancin, 1500mg IV once Acute renal failure, resolving Hyperkalemia -Resolved Increased anion gap metabolic acidosis, lactic acidosis, acute renal failure -Resolved GI bleed, with acute anemia -Was on aspirin for surgery as above as outpatient -Hemoccult positive stools, black tarry stool -Evidence of iron deficiency anemia ferritin 76, iron 30 -Hemoglobin down to 7.2 -No hemodynamic compromise but does have sinus tachycardia -For now continue Protonix, Carafate -EGD shows esoophageal polyp, esophagitis, gastric blood -adavance diet to diabetic diet -Her hemodynamics closely -Lovenox for DVT prophylaxis has been discontinued -s/p 2 units pRBC -monitor hgb Full code DVT prophylaxis SCDs Status stable, prognosis guarded Plan for today continue IV antibiotics, monitor blood sugars monitor hemoglobin moved to medical floors, trended up,Plan on discharging on dalbavancin, 1500mg IV once as outpatient Attestations 2 Medical Necessity Statement*: Patient requires hospitalization, for left knee infection requiring IV antibiotics, GI bleed, hyperglycemia Diagnoses DKA (diabetic ketoacidosis) E11.10 Prepatellar abscess L02.419 Lower extremity cellulitis L03.119 Prepatellar bursitis of left knee M70.42 Acute renal failure N17.9 Lactic acidosis E87.2 Sepsis A41.9 GI bleed K92.2 Acute anemia D64.9
[2024-06-11] MEDS: cefTRIAXone 1,000 mg SDV 1000 MG IVP (12:36)
[2024-06-11 12:52] LABS: Glucose Point of Care 214 mg/dL (70-110)
[2024-06-11 14:32] LABS: Basophils # 0.1 10^3/uL (0.0-0.1); Basophils % 0.7 %; Eosinophils # 0.1 10^3/uL (0.0-0.8); Hematocrit 27.6 % (37-53); Lymphocytes # 1.3 10^3/uL (0.8-4.8); Lymphocytes % 17.7 %; Mean Corpuscular Hemoglobin 29.4 pg (27-33); Mean Corpuscular Volume 89.3 fl (82-101); Mean Platelet Volume 10.3 fL (7.4-10.4); Monocytes # 0.4 10^3/uL (0.2-0.9); Monocytes % 5.9 %; Neutrophils # 5.27 10^3/uL (1.8-7.7); Neutrophils % 74.3 %; Nucleated Red Blood Cells % 0 %; Platelet Count 251 10^3/cmm (157-399); Red Blood Count 3.09 10^6/uL (3.85-5.65); Red Cell Distribution Width 14.2 % (12.1-15.1)
--- NOTE | 2024-06-11 15:44 | PC.NURSE ---
Transferred patient to [facility] surge room 260. port given to and patient received by [facility]. Belongings included clothes, slippers, and 2 cellphones. NUrse offered to call family to let them know about room change, but patient declined, he has a cell phone available to call.
[2024-06-11 16:58] LABS: Glucose Point of Care 148 mg/dL (70-110)
--- NOTE | 2024-06-11 17:01 | P.PN_ITS ---
Subjective 2 Subjective: Patient seen and examined. Tolerating diet. Denies any further blood per rectum. Denies abdominal pain Vitals/I&O/Wt Last Vital Signs Temp 98.6 F 06/12/24 07:40 Pulse 103 H 06/12/24 07:40 Resp 15 06/12/24 07:40 BP 134/87 06/12/24 07:40 Pulse Ox 98 06/12/24 07:40 O2 Del Method Room Air 06/12/24 04:00 06/11/24 06/12/24 06/12/24 22:59 06:59 14:59 Intake Total 2080 / 2520 480 / 3000 Balance 2080 / 2520 480 / 3000 Weight last 48 hrs Weight 151 lb Weight 151 lb 0.266 oz Physical Exam 2 Narrative: General: No acute distress, awake alert and oriented x 3 Abdomen: Soft, nontender, nondistended Data 06/12/24 05:06 06/12/24 05:06 A&P Assessment and plan (1) GI bleed: (2) Freida-Rushing tear: Plan Pathology showed mild chronic gastritis in the stomach and degenerated epithelium with underlying organized hematoma at the GE junction, consistent with a Freida-Rushing tear Recommend 6 weeks of pantoprazole 40 mg twice daily No further surgical intervention Medical management per primary General Surgery will sign off. Please reconsult if the need arises Attestations 2 Medical Necessity Statement*: Per primary Coding Level of Care Code 06929 Diagnoses GI bleed K92.2 Freida-Rushing tear K22.6
[2024-06-11 20:41] LABS: Glucose Point of Care 263 mg/dL (70-110)
[2024-06-11] MEDS: insulin glargine 100 units/1 mL 30 UNIT SUBCUT (20:56)
[2024-06-12] VITALS: BP 126/80; PULSE 106; RESP 17; TEMP 36.9; O2SAT 99
[2024-06-12] MEDS: sucralfate 1 gm/10 mL Oral Liq UDC PO ×2 (03:40→08:54)
[2024-06-12 04:00] VITALS: BP 137/78; PULSE 83; RESP 16; TEMP 36.8; O2SAT 99
[2024-06-12 05:15] LABS: Basophils # 0.1 10^3/uL (0.0-0.1); Basophils % 0.9 %; Eosinophils # 0.2 10^3/uL (0.0-0.8); Eosinophils % 3.4 %; Hematocrit 27.7 % (37-53); Lymphocytes # 2.1 10^3/uL (0.8-4.8); Lymphocytes % 30.3 %; Mean Corpuscular HGB Conc 31.8 g/dL (30-55); Mean Corpuscular Hemoglobin 29.2 pg (27-33); Mean Platelet Volume 10.4 fL (7.4-10.4); Monocytes # 0.6 10^3/uL (0.2-0.9); Monocytes % 8.9 %; Neutrophils # 3.86 10^3/uL (1.8-7.7); Neutrophils % 55.2 %; Nucleated Red Blood Cells % 0 %; Platelet Count 248 10^3/cmm (157-399); Red Blood Count 3.01 10^6/uL (3.85-5.65); Red Cell Distribution Width 14.5 % (12.1-15.1); White Blood Count 6.99 10^3/uL (3.29-11.43)
[2024-06-12 05:34] LABS: Alanine Aminotransferase 11 U/L (0-41); Albumin Level 2.8 g/dL (3.5-5.2); Alkaline Phosphatase 129 U/L (40-130); Anion Gap 13.2 (5-19); Aspartate Amino Transferase 14 U/L (0-40); Blood Urea Nitrogen 9 mg/dL (6-20); Calcium 7.9 mg/dL (8.5-10.5); Carbon Dioxide 23 mmol/L (22-29); Chloride 105 mmol/L (98-107); Creatinine Clr Calc Pharmacy 139.6806; Globulin 1.6 g/dL (1.3-4.6); Glucose 248 mg/dL (65-115); Magnesium 1.7 mg/dL (1.7-2.3); Osmolality Calculated 291 mOsm/kg (285-295); Phosphorus 2.4 mg/dL (2.5-4.5); Potassium 4.2 mmol/L (3.5-5.1); Sodium 137 mmol/L (136-145); Total Bilirubin 0.2 mg/dL (0.15-1.2); Total Protein 4.4 g/dL (6.6-8.7)
[2024-06-12 06:34] LABS: Glucose Point of Care 251 mg/dL (70-110)
[2024-06-12 07:40] VITALS: BP 134/87; PULSE 103; RESP 15; TEMP 37; O2SAT 98
[2024-06-12] MEDS: insulin lispro 100 unit/1 mL SUBCUT (08:54)
[2024-06-12] MEDS: DEXTROSE 5% IV (08:54)
[2024-06-12] MEDS: DALBAVANCIN IV (08:54)
--- NOTE | 2024-06-12 11:26 | P.DS_ITS ---
Discharge Providers Date of Admission: 06/07/24 15:23 Date of Discharge: June 12, 2024 Attending Provider at Admission: Malcolm Cr MD Attending Provider at Discharge: Malcolm Cr MD Primary Care Provider: Adi Castellon MD Diagnoses at Discharge Discharge Diagnosis (1) GI bleed: Status: Acute (2) Freida-Rushing tear: Status: Acute Reason for Visit Reason for Visit: hyperglycemia Hospital Course Hospital Course Jean Miller is a 29 year old male with a past medical history of type 1 diabetes mellitus, poorly controlled, recent hospitalization in leaving AGAINST MEDICAL ADVICE, for left knee septic prepatellar bursitis with abscess with cellulitis, status post irrigation and debridement with bursectomy, cultures growing Staph aureus, due to tachypnea, elevated blood sugars, altered mental status. Currently patient is alert oriented x 0, he does awaken to sternal rub, does withdraw from pain, but easily falls back asleep, blood pressure 126/81, heart rate 110 sinus tachycardia respiratory rate 16, saturating high 90s on room air, maintaining his airway, GCS score is 10. According to patient's mother, patient does not live with her, he lives with 2 other females, she tells me that over the weekend, he was having nausea, vomiting, not feeling well with elevated blood sugars. In the emergency room he was found to have white blood cell count of 35,000, platelet count of 725, neutrophilic leukocytosis, chest x- ray no focal pneumonia, UA within normal limits, left knee x-ray within normal limits was given 1 dose of vancomycin, potassium was 8.4, was given insulin, bicarb, calcium chloride, IV fluids. Found to have severe metabolic acidosis bicarb 2, pH 6.96, anion gap 47.4 was given 100 mEq of bicarb, IV fluids. Blood sugar over 1080, currently on insulin drip. Serum ketones positive. Hospitalist team was called for admission, mother is at bedside, we discussed patient's critical status with his hyperkalemia, severe metabolic acidosis, diabetic ketoacidosis, lactic acidosis of 5, leukocytosis, patient's status is critical, prognosis guarded, will monitor him closely in the intensive care unit, low threshold for intubation, he is a full code, I have confirmed with mother multiple times, we also discussed the possibility of dialysis potassium is 8.4 creatinine is 2.8, if his hyperkalemia does not correct, he might need temporary dialysis, she is agreeable if needed, Patient was admitted to [facility] for severe diabetic ketoacidosis pH 6.96, pCO2 2, potassium 8.4, anion gap 47.4, ketones positive, elevated lactic acid with sepsis secondary to left knee infection, blood sugars over 800, was monitored in the intensive care unit, managed on the DKA protocol, required bicarbonate drip, overall patient clinically improved, transitioned off insulin drip, to subcu insulin, with Lantus, overall clinically improved. Will be discharged on Lantus and NovoLog, I had extensive discussion with him about the morbidity and mortality associate with DKA, morbidity and mortality with hypoglycemia, we need good control of his blood sugars, he needs to monitor his blood sugars 4 times daily, hypoglycemia protocol, if blood sugar less than 60 drink orange juice or eat hard candy or use glucagon pen and go to the emergency room, if greater than 500 go to the emergency room, he should use his insulin as prescribed. Patient voiced understanding, all questions answered, agreed to proceed For his sepsis Sepsis -Patient recently left AGAINST MEDICAL ADVICE -Was admitted for left lower extremity cellulitis, concern for left knee prepat ellar abscess status post incision and drainage, with bursectomy -Left AGAINST MEDICAL ADVICE, was discharged with p.o. antibiotics -Surgical cultures growing Staph aureus -Blood cultures within normal limits -For now continue broad-spectrum antibiotic therapy vancomycin, Zosyn -Follow repeat blood cultures -CRP, Pro-Unruly, sed rate -On examination, left knee, sutures are in place, site is erythematous, slightly swollen, slightly warm, monitor closely -He was monitored as inpatient, received broad-spectrum antibiotic therapy orthopedic service was consulted, infectious disease was consulted -So far his blood cultures remain unremarkable, his knees look significantly better with IV antibiotics, remains afebrile -After discussion with infectious disease, plan is to continue IV antibiotics as he is inpatient, discharge on dalbavancin 1 dose -Patient received his dose of Dalvance, and discharged home -With Dr. Ha as outpatient For his acute renal failure, creatinine 2.8, secondary sepsis, dehydration, DKA, improved with IV fluids Hyperkalemia, potassium 8.4 requiring bicarb, insulin, calcium chloride, overall improved, Patient's hospitalization was complicated by GI bleed -With tachycardia, black tarry stools, requiring 2 units PRBC -Monitor with Protonix, Carafate, IV fluids, general surgery was consulted -Patient required EGD with findings of esophageal polyp, esophagitis, i ntraluminal gastric blood -He will monitor for over 72 hours hemoglobin was monitored hemoglobin has been stable, no recurrent bloody or black stools no hemodynamic compromise no tachycardia -Will be discharged on Protonix, Carafate, advised to abstain from methamphetamine use, abstain from NSAIDs -Follow-up with primary care provider as outpatient -Repeat hemoglobin through primary care provider next week On discharge I had an extensive discussion with him about abstaining from drug use, he has recurrent hospitalizations due to noncompliance, morbidity and mortality associated, adhering to our recommendations, monitoring his blood sugars closely, following with primary care provider 1 week, follow-up with Dr. Jones as outpatient, I had extensive discussion with him about morbidity and mor tality associated with his type 1 diabetes, monitoring his blood sugars closely, continue to monitor his left knee, abstaining from drug use, Physical Exam Const: COMMON NORMALS: no acute distress and patient oriented x3 Resp: COMMON NORMALS: normal respiratory effort, No retractions, No use of accessory muscles and clear to auscultation bilaterally AUSCULTATION: clear to auscultation bilaterally Cardio: COMMON NORMALS: regular rate, regular rhythm, S1 normal heart sound present and S2 normal heart sound present RATE: regular rate RHYTHM: regular rhythm HEART SOUNDS: S1 normal heart sound present and S2 normal heart sound present GI: COMMON NORMALS: Normal to inspection, nondistended, normoactive bowel sounds present and non-tender Extremity: COMMON NORMALS: no pedal edema Neuro: COMMON NORMALS: patient oriented x3 Psych: COMMON NORMALS: mental status grossly normal Discharge Data Studies Completed and Pending Completed Studies During Hospitalization Category Date Time Status CXRP [XR chest 1V portable [id number]] Routine Exams 06/07/24 17:20 Completed XR chest 1V portable [id number] Stat Exams 06/07/24 13:15 Completed XR knee LT 3V* [id number] Stat Exams 06/07/24 13:47 Completed MR knee LT wo con* [id number] Routine MRI 06/08/24 10:35 Completed Pending at discharge Category Date Time Status Blood Culture Stat Lab 06/07/24 14:34 Results Leukocyte Reduced RBC Stat Lab 06/09/24 08:30 Results Type and Screen Stat Lab 06/09/24 08:30 Results Pathology: Surgical [PTH] Routine Pth 06/09/24 13:13 Received Radiology Impressions Knee X-Ray 06/07/24 13:47 IMPRESSION: No acute findings. Chest X-Ray 06/07/24 17:20 IMPRESSION: 1. Right arm PICC in satisfactory position. 2. No acute findings. Knee MRI 06/08/24 10:35 IMPRESSION: 1. MRI knee examination was performed without IV contrast. 2. Overall there has been a moderate improvement in the edema and cellulitis surrounding the LEFT knee. The previously described developing abscess in the infrapatellar subcu and soft tissue is improving. 3. Decrease in size of the joint effusion. 4. No marrow edema. Laboratory Results WBC 6.99 10^3/uL (3.29-11.43) 06/12/24 05:06 RBC 3.01 10^6/uL (3.85-5.65) L 06/12/24 05:06 Hgb 8.80 g/dL (11.27-16.99) L 06/12/24 05:06 Hct 27.7 % (37-53) L 06/12/24 05:06 MCV 92.0 fl (82-101) 06/12/24 05:06 MCH 29.2 pg (27-33) 06/12/24 05:06 MCHC 31.8 g/dL (30-55) 06/12/24 05:06 RDW 14.5 % (12.1-15.1) 06/12/24 05:06 Plt Count 248 10^3/cmm (157-399) 06/12/24 05:06 MPV 10.4 fL (7.4-10.4) 06/12/24 05:06 Neut % (Auto) 55.2 % 06/12/24 05:06 Lymph % (Auto) 30.3 % 06/12/24 05:06 [place]ull[place] % (Auto) 8.9 % 06/12/24 05:06 Eos % (Auto) 3.4 % 06/12/24 05:06 Baso % (Auto) 0.9 % 06/12/24 05:06 Neut # (Auto) 3.86 10^3/uL (1.8-7.7) 06/12/24 05:06 Lymph # (Auto) 2.1 10^3/uL (0.8-4.8) 06/12/24 05:06 [place] # (Auto) 0.6 10^3/uL (0.2-0.9) 06/12/24 05:06 Eos # (Auto) 0.2 10^3/uL (0.0-0.8) 06/12/24 05:06 Baso # (Auto) 0.1 10^3/uL (0.0-0.1) 06/12/24 05:06 Nucleated RBC % (auto) 0 % 06/12/24 05:06 Nucleated RBCs # 0.0 /100WBC 06/12/24 05:06 ESR 25 mm/hr (0-10) H 06/07/24 13:35 PT 15.70 SECONDS (12.1-14.9) H 06/08/24 09:55 INR 1.21 (0.8-1.2) H 06/08/24 09:55 Specimen Type Arterial 06/07/24 13:22 Sample Site Brachial, right 06/07/24 13:22 ABG pH 6.96 (7.35-7.45) L* 06/07/24 13:22 ABG pCO2 7.0 mmHg (35-45) L* 06/07/24 13:22 ABG pO2 149.0 mmHg (80.0-100.0) H 06/07/24 13:22 ABG PO2/FiO2 Ratio 709 06/07/24 13:22 ABG HCO3 1.6 mmol/L (22-26) L 06/07/24 13:22 ABG O2 Saturation 98.4 06/07/24 13:22 ABG Base Excess -28.4 mmol/L (-2.0-2.0) L 06/07/24 13:22 [place]reket Test N/a 06/07/24 13:22 A-a O2 Gradient Not Reportable 06/07/24 13:22 Hematocrit 38.4 % (42-52) L 06/07/24 13:22 Hgb O2 Saturation 96.4 % (95-100) 06/07/24 13:22 Carboxyhemoglobin 0.6 %THgb (0.4-20.1) 06/07/24 13:22 Methemoglobin 1.4 % (0.4-1.5) 06/07/24 13:22 Total Hemoglobin 12.5 g/dL (14-18) L 06/07/24 13:22 Sodium 121.0 mmol/L (131-143) L 06/07/24 13:22 Potassium 7.6 mmol/L (3.5-5.0) H 06/07/24 13:22 Glucose > 1080.0 mg/dL (70-115) H 06/07/24 13:22 Ionized Calcium 1.2 mmol/L (1.1-1.4) 06/07/24 13:22 O2 Delivery Device Room air 06/07/24 13:22 FiO2 21.0 % 06/07/24 13:22 Scenario Writer ID Amh 06/07/24 13:22 Sodium 137 mmol/L (136-145) 06/12/24 05:06 Potassium 4.2 mmol/L (3.5-5.1) 06/12/24 05:06 Chloride 105 mmol/L (98-107) 06/12/24 05:06 Carbon Dioxide 23 mmol/L (22-29) 06/12/24 05:06 Anion Gap 13.2 (5-19) 06/12/24 05:06 BUN 9 mg/dL (6-20) 06/12/24 05:06 Creatinine 0.8 mg/dL (0.7-1.2) 06/12/24 05:06 GFR Calculation 116.0 mL/min (90-130) 06/12/24 05:06 Glucose 248 mg/dL (65-115) H 06/12/24 05:06 POC Glucose 251 mg/dL (70-110) H 06/12/24 06:32 Estimat Average Glucose 275 06/07/24 13:35 Hemoglobin A1c 11.2 % (4.0-6.0) H 06/07/24 13:35 Calculated Osmolality 291 mOsm/kg (285-295) 06/12/24 05:06 Lactic Acid 5.0 mmol/L (0.5-2.2) H* 06/07/24 13:35 Lactic Acid (Sepsis) 2.2 mmol/L (0.5-2.2) 06/07/24 17:03 Calcium 7.9 mg/dL (8.5-10.5) L 06/12/24 05:06 Phosphorus 2.4 mg/dL (2.5-4.5) L 06/12/24 05:06 Magnesium 1.7 mg/dL (1.7-2.3) 06/12/24 05:06 Iron 30 ug/dL (59-158) L 06/08/24 04:00 TIBC 234 mcg/dl 06/08/24 04:00 % Saturation 12.8 % (20-50) L 06/08/24 04:00 Unsat Iron Binding 204 ug/dL (112-347) 06/08/24 04:00 Ferritin 76 ng/mL (30-400) 06/08/24 04:00 Total Bilirubin 0.2 mg/dL (0.15-1.2) 06/12/24 05:06 AST 14 U/L (0-40) 06/12/24 05:06 ALT 11 U/L (0-41) 06/12/24 05:06 Alkaline Phosphatase 129 U/L (40-130) 06/12/24 05:06 Troponin T Baseline 68 ng/L (0-15) H 06/07/24 15:30 Troponin T 120 Minute 68.96 ng/L (0-15) H 06/07/24 17:03 Delta Troponin T 0.96 ABS# (0-10) 06/07/24 17:03 Troponin T Hi Sens 6Hr 60.56 ng/L (0-15) H 06/07/24 22:10 Troponin T Hi Sens 6Hr Delta -7.44 ng/L (0-12) L 06/07/24 22:10 C-Reactive Protein 5.3 mg/L (0.0-4.9) H 06/07/24 15:30 NT-Pro-B Natriuret Pep 686 pg/mL (0-125) H 06/07/24 15:30 Total Protein 4.4 g/dL (6.6-8.7) L 06/12/24 05:06 Albumin 2.8 g/dL (3.5-5.2) L 06/12/24 05:06 Globulin 1.6 g/dL (1.3-4.6) 06/12/24 05:06 Triglycerides 130 mg/dL (0-150) 06/07/24 17:03 Cholesterol 130 mg/dL (0-200) 06/07/24 17:03 LDL Cholesterol, Calc 42 mg/dL (50-129) L 06/07/24 17:03 HDL Cholesterol 62 mg/dL (60-100) 06/07/24 17:03 LDL/HDL Ratio 0.68 RATIO (0.00-3.22) 06/07/24 17:03 Cholesterol/HDL Ratio 2.10 mg/dL (1.0-5.00) 06/07/24 17:03 Lipase 7 U/L (13-60) L 06/07/24 13:35 Procalcitonin 0.46 ng/mL (0-0.5) 06/07/24 15:30 TSH 0.23 uIU/mL (0.27-4.20) L 06/07/24 17:03 Urine Color Yellow (Yellow) 06/07/24 18:28 Urine Appearance Clear (CLEAR) 06/07/24 18:28 Urine pH 5.0 (5-7) 06/07/24 18:28 Ur Specific [place] 1.016 (1.005-1.030) 06/07/24 18:28 Urine Protein Negative (Negative) 06/07/24 18:28 Urine Glucose (UA) 3+ (Normal) H 06/07/24 18:28 Urine Ketones 3+ (Negative) H 06/07/24 18:28 Urine Blood Negative (Negative) 06/07/24 18:28 Urine Nitrate Negative (Negative) 06/07/24 18:28 Urine Bilirubin Negative (Negative) 06/07/24 18:28 Urine Urobilinogen 0.2 mg/dL (Negative) 06/07/24 18:28 Ur Leukocyte Esterase Negative (Negative) 06/07/24 18:28 Urine RBC 0-2 /hpf (0-2) 06/07/24 18:28 Urine WBC 0-5 /hpf (0-5) 06/07/24 18:28 Ur Squamous Epith Cells 0-5 /hpf (0-5) 06/07/24 18:28 Amorphous Sediment Not Reportable 06/07/24 18:28 Urine Bacteria None seen /hpf (NONE) 06/07/24 18:28 Hyaline Casts 2.46 /lpf 06/07/24 18:28 Vancomycin Trough < 4.0 ug/mL (10-15) L 06/09/24 22:39 Urine Opiates Screen Negative ng/mL (Negative) 06/07/24 18:28 Ur Barbiturates Screen Negative ng/mL (Negative) 06/07/24 18:28 Ur Phencyclidine Scrn Negative ng/mL (Negative) 06/07/24 18:28 Ur Amphetamines Screen Positive ng/mL (Negative) H 06/07/24 18:28 U Benzodiazepines Scrn Negative ng/mL (Negative) 06/07/24 18:28 Urine Cocaine Screen Negative ng/mL (Negative) 06/07/24 18:28 U Marijuana (THC) Screen Negative ng/mL (Negative) 06/07/24 18:28 Serum Ketones Positive (Negative) H 06/07/24 13:35 Adenovirus (PCR) Not detected (NOT DETECT) 06/07/24 14:50 C. pneumoniae DNA (PCR) Not detected (NOT DETECT) 06/07/24 14:50 C. difficile (PCR) Negative (Negative) 06/08/24 09:45 Coronavirus 229E (PCR) Not detected (NOT DETECT) 06/07/24 14:50 Hepatitis A IgM Ab Non-reactive (Nonreactive) 06/07/24 15:30 Hep Bs Antigen Non-reactive (Nonreactive) 06/07/24 15:30 Hep B Core IgM Ab Non-reactive (Nonreactive) 06/07/24 15:30 Hepatitis C Antibody Non-reactive (Nonreactive) 06/07/24 15:30 HIV 1&2 Ab & HIV 1 Ag Non-reactive (Non-Reactiv) 06/07/24 15:30 HIV 1&2 Antibody Non-reactive (Non-Reactiv) 06/07/24 15:30 Human Metapneumovir PCR Not detected (NOT DETECT) 06/07/24 14:50 Influenza A (H1) PCR Not detected (NOT DETECT) 06/07/24 14:50 Influ A (H1/09) PCR Not detected (NOT DETECT) 06/07/24 14:50 Influenza A (H3) PCR Not detected (NOT DETECT) 06/07/24 14:50 Influenza Type A (PCR) Not detected (NOT DETECT) 06/07/24 14:50 Influenza Type B (PCR) Not detected (NOT DETECT) 06/07/24 14:50 M. pneumoniae (PCR) Not detected (NOT DETECT) 06/07/24 14:50 Parainfluenza 1 (PCR) Not detected (NOT DETECT) 06/07/24 14:50 Parainfluenza 2 (PCR) Not detected (NOT DETECT) 06/07/24 14:50 Parainfluenza 3 (PCR) Not detected (NOT DETECT) 06/07/24 14:50 Parainfluenza 4 (PCR) Not detected (NOT DETECT) 06/07/24 14:50 RSV Type A (PCR) Not detected (NOT DETECT) 06/07/24 14:50 RSV Type B (PCR) Not detected (NOT DETECT) 06/07/24 14:50 Entero/Rhino (PCR) Not detected (NOT DETECT) 06/07/24 14:50 SARS-CoV-2 (PCR) Not detected (NOT DETECT) 06/07/24 14:50 Blood Type O Positive 06/09/24 08:30 Rho(D) Type Rh positive 06/09/24 08:30 Antibody Screen Negative 06/09/24 08:30 Crossmatch See Detail 06/09/24 08:30 Vitals Last Vital Signs Temp 98.6 F 06/12/24 07:40 Pulse 103 H 06/12/24 07:40 Resp 15 06/12/24 07:40 BP 134/87 06/12/24 07:40 Pulse Ox 98 06/12/24 07:40 O2 Del Method Room Air 06/12/24 04:00 Discharge Plan Discharge Patient Disposition: Home Condition: Stable Prescriptions: New Dalvance 500 mg solution 1,500 mg IV ONCE Qty: 1 0RF Dalvance 500 mg solution 1,500 mg IV ONCE Qty: 1 0RF sucralfate 100 mg/mL Suspension 1 g PO Q12H 30 Days Qty: 600 0RF Protonix 40 mg tablet,delayed release (DR/EC) 40 mg PO BID 30 Days Qty: 60 0RF Glucagon (HCl) Emergency Kit 1 mg recon soln 1 mg IM Q20M PRN (Reason: hypoglycemia) Qty: 1 0RF Rx Instructions: until target blood sugar attained Continued Levemir FlexPen 100 unit/mL (3 mL) insulin pen 30 unit SUBCUT QPM Qty: 15 2RF Changed Novolog FlexPen U-100 Insulin 100 unit/mL (3 mL) insulin pen See Rx Instructions .ROUTE .COMPLEX Qty: 15 3RF Rx Instructions: Inject, subcut, 3 times daily, after meals, based on sliding scale provided Discontinued aspirin 81 mg tablet,delayed release (DR/EC) 81 mg PO BID 14 Days Qty: 28 0RF cefdinir 300 mg capsule 300 mg PO BID 10 Days Qty: 20 0RF doxycycline hyclate 100 mg capsule 100 mg PO BID 10 Days Qty: 20 0RF Rx Instructions: substitute formulation if needed loperamide 2 mg Capsule 2 mg PO QID PRN (Reason: Diarrhea) 30 Days Qty: 30 0RF hydrocodone-acetaminophen 5-325 mg tablet 1 tab PO Q6H PRN (Reason: Pain) ondansetron 4 mg tablet,disintegrating 4 mg PO Q8H PRN (Reason: Nausea And Vomiting) No Action (DME) blood-glucose meter [OneTouch Ultra2 Meter] Kit See Rx Instructions .Route Qty: 1 0RF Rx Instructions: To use TID to check blood sugar levels before taking insulin (DME) blood sugar diagnostic Strip See Rx Instructions .Route Qty: 300 3RF Rx Instructions: To use TID in onetouch meter to check blood sugar, 90 day supply Discharge Orders: Discharge Order (Routine); Ordered 06/12/24 Ordered By: Malcolm Cr Referrals: Adi Castellon MD [Primary Care Provider] - 06/18/24 10:45 am Lauri Ha DO [Physician] - 1 week (We have notified your physician's clinic of the need for a follow-up appointment to be scheduled. If you have not heard from them within the next 2 business days, please call them directly. ) Elmer Jones MD [Physician] - 1 month (We have notified your physician's clinic of the need for a follow-up appointment to be scheduled. If you have not heard from them within the next 2 business days, please call them directly. ) Amaury Campos DO [Physician] - 2 weeks Discharge Diet: Advance as tolerated Discharge Activity: Increase activity as tolerated Patient Instructions: Sucralfate (By mouth), Glucagon (By injection), Pantopraz ole (By mouth), Opioid Safety Activity Restrictions/Additional Instructions: Orthopedic discharge instructions: Patient may weight-bear as tolerated to left lower extremity Encourage knee range of motion as tolerated Continue to keep incision clean dry and intact Ice and elevate as needed for pain and swelling Utilize [place] wrap or compressive sleeve for swelling and edema control Take antibiotic as prescribed by primary team Take pain medication as prescribed by primary team Follow-up in the orthopedic office in 2 weeks Contact the office for any questions or concerns ?-Please monitor your blood sugars closely -Monitor your blood sugars 3 times daily as after meals -Please record your blood sugars, and a blood sugar log -For your NovoLog -Please inject blood sugar after meals based on sliding scale provided -Do not inject insulin if you do not eat as hypoglycemia kills -This is a NovoLog sliding scale -Insulin sliding ?fingerstick? Insulin ?141-180?0 units/sq 181-220?2 units/sq ?221-260?4 units/sq ?261-300 6 units/sq ?301-350?8 units/sq ?351-400 10 units/sq ?401-450?12 units/sq >450? 14units/sq -If your blood sugar is greater than 500 go to the emergency room -If your blood sugar is less than 60 or at anytime you feel lightheaded or dizzy or diaphoretic or have chest palpitations check your blood sugar, and eat a hard candy or drink orange juice and go immediately to the emergency room -Remember hypoglycemia kills, so if his blood sugar is less than 60 we have to increase it by taking in a sugary meal such as a hard candy or orange juice and go to the emergency room -If you have any questions please call us where here to help Discharge Attestations Time Spent in Discharge Care*: greater than 30 min Status at Discharge: Cognitive status at discharge: cognitively intact , Behavioral status at discharge: cooperative , Quality Metrics Clinical Quality Measures [ No reported AMI, CVA or VTE this stay] Coding Level of Care Code 47277 Total time (in minutes) for Discharge: 45 Diagnoses GI bleed K92.2 Freida-Rushing tear K22.6
== END 2024-06-12 11:06 | disposition home or self-care (01) | DRG 871 ==
LOC: ER 13:30 → ICU 15:32 → MEDSURG 06-11 14:54
PROVIDERS: Surgery; Admitting Provider Family Medicine; Emergency Provider Family Medicine; PCP Family Medicine; Visit Provider Family Medicine
PROC: 0DJ08ZZ Inspection of Upper Intestinal Tract, Via Natural or Artificial Opening Endoscopic (ICD-10-PCS; CPT 43235; principal; 2024-06-09 12:25)
DX: A41.9 Sepsis, unspecified organism (principal); E10.10 Type 1 diabetes mellitus with ketoacidosis without coma; K22.6 Gastro-esophageal laceration-hemorrhage syndrome; L03.116 Cellulitis of left lower limb; N17.9 Acute kidney failure, unspecified; K92.1 Melena; D62 Acute posthemorrhagic anemia; R65.20 Severe sepsis without septic shock; Z11.52 Encounter for screening for COVID-19; E87.5 Hyperkalemia; Z79.4 Long term (current) use of insulin; Z79.82 Long term (current) use of aspirin; F17.210 Nicotine dependence, cigarettes, uncomplicated; I10 Essential (primary) hypertension; F15.10 Other stimulant abuse, uncomplicated; M71.062 Abscess of bursa, left knee; B95.61 Methicillin susceptible Staphylococcus aureus infection as the cause of diseases classified elsewhere; E86.0 Dehydration; K22.82 Esophagogastric junction polyp
CPT/HCPCS: 36415; 36416; 36430; 36573; 36592; 36600; 43239; 43251; 43255; 71045; 73562; 73721; 80048; 80051; 80053; 80061; 80074; 80202; 80306; 81003; 81015; 82009; 82274; 82330; 82728; 82805; 82962; 83036; 83540; 83550; 83605; 83690; 83735; 83880; 84100; 84145; 84443; 84484; 85014; 85018; 85025; 85610; 85651; 86140; 86850; 86900; 86920; 87040; 87486; 87493; 87581; 87633; 87806; 88305; 88312; 88342; 93005; 94664; 96365; 96366; 96367; 96372; 96374; 96375; 96376; 97110; 99291; C1751; J0171; J0696; J0875; J1650; J1815; J2470; J2543; J2704; J3370; J3490; J7030; J7040; J7050; J7060; P9016

== ENCOUNTER → 2024-07-02 09:47 | Outpatient (BNVA) | payer MEDICAID, SELFPAY | PROVIDERS: PCP Family Medicine; Visit Provider Internal Medicine | DX: E10.65 Type 1 diabetes mellitus with hyperglycemia (principal); E04.1 Nontoxic single thyroid nodule; E05.90 Thyrotoxicosis, unspecified without thyrotoxic crisis or storm | CPT/HCPCS: 36415; 80053; 82310; 83970; 84439; 84443; 84480 ==